=== PATIENT | male | born 1960 | race Caucasian/White ===

== ENCOUNTER 2017-03-20 14:19 | Inpatient (IN) | payer SELFPAY ==
[~2017-03-20] VITALS: Ht 172.7 cm; Wt 70.8 kg
[~2017-03-20 14:19] MED LIST: METH40TA PO
[2017-03-20 14:20] VITALS: BP 195/93; PULSE 98; RESP 18; TEMP 98.6; O2SAT 98
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
[2017-03-20] MEDS ORDERED: CLINDAMYCIN 600 MG/NS PREMIX 50 ML IV ONE ×2 (15:00→20:00)
[2017-03-20] MEDS ORDERED: CLINDAMYCIN INJ 600 MG in SODIUM CHLORIDE 0.9% INJ 100 ML IV ONE (15:00)
[2017-03-20 15:19] LABS: AUTOMATED NEUTROPHIL # 8.2 TH/MM3 (1.8-7.7); BASOPHIL % 0.3 % (0.0-2.0); EOSINOPHIL # 0.3 TH/MM3 (0-0.4); EOSINOPHIL % 2.2 % (0.0-4.0); HEMATOCRIT 35.1 % (39.0-51.0); HEMOGLOBIN 11.5 GM/DL (13.0-17.0); LYMPH % 17.7 % (9.0-44.0); MEAN CELL VOLUME 86.7 FL (80.0-100.0); MEAN CORPUSCULAR HEMOGLOBIN 28.4 PG (27.0-34.0); MEAN CORPUSCULAR HGB CONC 32.8 % (32.0-36.0); MEAN PLATELET VOLUME 7.4 FL (7.0-11.0); MONO % 8.5 % (0.0-8.0); NEUT % 71.3 % (16.0-70.0); PLATELET COUNT 331 TH/MM3 (150-450); RED BLOOD COUNT 4.05 MIL/MM3 (4.50-5.90); RED CELL DISTRIBUTION WIDTH 13.5 % (11.6-17.2); WHITE BLOOD COUNT 11.6 TH/MM3 (4.0-11.0)
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
[2017-03-20 15:32] LABS: ALBUMIN 2.8 GM/DL (3.4-5.0); ALT (GPT) 15 U/L (12-78); AST (GOT) 12 U/L (15-37); BICARBONATE 30.3 MEQ/L (21.0-32.0); BLOOD UREA NITROGEN 10 MG/DL (7-18); C-REACTIVE PROTEIN 8.57 MG/DL (0.00-0.30); CALCIUM 8.7 MG/DL (8.5-10.1); CHLORIDE 98 MEQ/L (98-107); CREATININE 1.09 MG/DL (0.60-1.30); GLOMERULAR FILTRATION RATE 69 ML/MIN (>89); GLUCOSE,RANDOM 105 MG/DL (74-106); PROTHROMBIN TIME - PATIENT 10.5 SEC (9.8-11.6); SODIUM (NA) 136 MEQ/L (136-145)
[2017-03-20 15:35] LABS: ALKALINE PHOSPHATASE 116 U/L (45-117); TOTAL BILIRUBIN ADULT 0.2 MG/DL (0.2-1.0); TOTAL PROTEIN 8.5 GM/DL (6.4-8.2)
[2017-03-20] MEDS ORDERED: PIPERACIL-TAZO 4.5 GM PREMIX 100 ML IV ONE (16:30)
[2017-03-20] MEDS ORDERED: VANCOMYCIN INJ 1,750 MG in SODIUM CHLORID 0.9% 500 ML INJ 500 ML IV ONE (16:30)
--- NOTE | 2017-03-20 16:38 | PD ---
Physical Exam Narrative I, Dr. Zuluaga, have reviewed the advance practice practitioner's documentation and am in agreement, met with the patient face to face, made the diagnosis, and the medical decision making was done by me. *My assessment and Findings: Patient is a 56 year old male who comes in due to concerns for infection in his toe. Exam shows swelling, oozing from his great toe. There is surrounding erythema and warmth. Data Data Last Documented VS Vital Signs Date Time Temp Pulse Resp B/P (MAP) Pulse Ox O2 Delivery O2 Flow Rate FiO2 03/20/17 14:20 98.6 98 18 195/93 (127) 98 Orders Orders Complete Blood Count With Diff (03/20/17 14:43) Comprehensive Metabolic Panel (03/20/17 14:43) Prothrombin Time / Inr (Pt) (03/20/17 14:43) Act Partial Throm Time (Ptt) (03/20/17 14:43) Foot, Complete ([id number]) (03/20/17 ) Westergren Sedimentation Rate (03/20/17 14:43) C-Reactive Protein (Crp) (03/20/17 14:43) Iv Access Insert/Monitor (03/20/17 14:47) Clindamycin Inj (Cleocin Inj) (03/20/17 15:00) Wound Culture And Gram Stain (03/20/17 14:58) Vancomycin Inj (Vancomycin Inj) (03/20/17 16:30) Piperacil-Tazo 4.5 Gm Premix (Zosyn 4.5 (03/20/17 16:30) Mri Foot W&W/O Contrast (03/20/17 ) Admit Order (Ed Use Only) (03/20/17 16:51) Consult Podiatry (03/20/17 ) Labs Laboratory Tests Test 03/20/17 15:00 White Blood Count 11.6 TH/MM3 Red Blood Count 4.05 MIL/MM3 Hemoglobin 11.5 GM/DL Hematocrit 35.1 % Mean Corpuscular Volume 86.7 FL Mean Corpuscular Hemoglobin 28.4 PG Mean Corpuscular Hemoglobin Concent 32.8 % Red Cell Distribution Width 13.5 % Platelet Count 331 TH/MM3 Mean Platelet Volume 7.4 FL Neutrophils (%) (Auto) 71.3 % Lymphocytes (%) (Auto) 17.7 % Monocytes (%) (Auto) 8.5 % Eosinophils (%) (Auto) 2.2 % Basophils (%) (Auto) 0.3 % Neutrophils # (Auto) 8.2 TH/MM3 Lymphocytes # (Auto) 2.0 TH/MM3 Monocytes # (Auto) 1.0 TH/MM3 Eosinophils # (Auto) 0.3 TH/MM3 Basophils # (Auto) 0.0 TH/MM3 CBC Comment DIFF FINAL Differential Comment Erythrocyte Sedimentation Rate 70 mm/hr Prothrombin Time 10.5 SEC Prothromb Time International Ratio 1.0 RATIO Activated Partial Thromboplast Time 31.2 SEC Blood Urea Nitrogen 10 MG/DL Creatinine 1.09 MG/DL Random Glucose 105 MG/DL Total Protein 8.5 GM/DL Albumin 2.8 GM/DL Calcium Level 8.7 MG/DL Alkaline Phosphatase 116 U/L Aspartate Amino Transf (AST/SGOT) 12 U/L Alanine Aminotransferase (ALT/SGPT) 15 U/L Total Bilirubin 0.2 MG/DL Sodium Level 136 MEQ/L Potassium Level 3.9 MEQ/L Chloride Level 98 MEQ/L Carbon Dioxide Level 30.3 MEQ/L Anion Gap 8 MEQ/L Estimat Glomerular Filtration Rate 69 ML/MIN C-Reactive Protein 8.57 MG/DL MDM Supervised Visit with ELVIN: Yes Narrative Course Patient given antibiotics. XR of the foot concerning for osteomyelitis. Podiatry consulted. Patient admitted for further management. Diagnosis Primary Impression: Toe ulcer Qualified Codes: L97.524 - Non-pressure chronic ulcer of other part of left foot with necrosis of bone Additional Impression: Osteomyelitis Qualified Codes: M86.172 - Other acute osteomyelitis, left ankle and foot Condition: Stable Rhoda Zuluaga MD Mar 20, 2017 16:38
[2017-03-20 16:55] VITALS: BP 157/78; PULSE 64; RESP 18; O2SAT 96
[2017-03-20] MEDS ORDERED: SODIUM CHLORIDE 0.9% FLUSH 10 ML FLUSH IV FLUSH PRN (18:00)
[2017-03-20] MEDS ORDERED: NALOXONE HCL 0.4 MG/ML AMP IV PUSH PRN (18:00)
[2017-03-20] MEDS ORDERED: ACETAMINOPHEN 325 MG TAB PO PRN ×2 (18:00)
[2017-03-20 18:23] VITALS: BP 158/69
[2017-03-20] MEDS ORDERED: RESP: ALBUTEROL 2.5 MG/IPRATROPIUM 0.5 MG NEB (PRN) NEB (18:30)
[2017-03-20] MEDS ORDERED: Vancomycin Consult Pharmacy 1 EA OTHER SCH (18:30)
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
[2017-03-20 20:00] VITALS: BP 151/73; PULSE 61; RESP 18; TEMP 99.8; O2SAT 96
--- NOTE | 2017-03-20 20:21 | RADRPT ---
THIS REPORT IS IN ERROR. PLEASE DISREGARD COPIES OF THIS REPORT. THIS REPORT IS IN ERROR. PLEASE DISREGARD COPIES OF THIS REPORT. THIS REPORT IS IN ERROR. PLEASE DISREGARD COPIES OF THIS REPORT. EXAM DATE/TIME: 03/20/2017 19:17 This report includes an Addendum and supersedes previous reports for this exam. [facility] COMPARISON: FOOT RIGHT COMPLETE ([id number]), March 20, 2017, 15:11. INDICATIONS : Osteomyelitis. Great toe/fracture 5th toe. CONTRAST: 13 cc Omniscan (gadodiamide) IV MEDICAL HISTORY : Diabetes mellitus type 2. Chronic obstructive pulmonary disease. Arthritis. CHF. SURGICAL HISTORY : Inguinal hernia repair. Tonsillectomy. ENCOUNTER: Initial ACUITY: 1 day PAIN SCORE: 0/10 LOCATION: Right foot TECHNIQUE: Multiplanar, multisequence MRI examination was performed without contrast and after the intravenous administration of gadolinium. FINDINGS: There is extensive motion artifact. There is hemorrhage high T2 signal abnormality in the base of the distal phalanx great toe most consistent with osteomyelitis. There is diffuse soft tissue swelling. No definite fracture seen. No fluid collection or abscess. CONCLUSION: Suspected osteomyelitis distal phalanx great toe. Louie Vega MD on March 20, 2017 at 20:14 Board Certified Radiologist. This report was verified electronically. ADDENDUM: The examination was MRI of the left foot. The requisition was put in incorrectly as right foot MRI. Please make a note of this collection. Yo Marley MD on March 21, 2017 at 12:10 Board Certified Radiologist. This report was verified electronically. THIS REPORT IS IN ERROR. PLEASE DISREGARD COPIES OF THIS REPORT. THIS REPORT IS IN ERROR. PLEASE DISREGARD COPIES OF THIS REPORT. THIS REPORT IS IN ERROR. PLEASE DISREGARD COPIES OF THIS REPORT. [id number]
[2017-03-20] MEDS ORDERED: GADODIAMIDE PF 287 MG/ML 10 ML VIAL (for RAD MRI) IVCONTRAST ONE (20:26)
[2017-03-20 20:32] VITALS: PULSE 60
[2017-03-20] MEDS: DOCUSATE SODIUM 50 MG/SENNA 8.6 MG TAB PO SCH (21:09)
[2017-03-20] MEDS: SODIUM CHLOR 0.9% 1000 ML INJ 1,000 ML IV SCH (21:09)
[2017-03-20] MEDS: SODIUM CHLORIDE 0.9% FLUSH 10 ML FLUSH IV FLUSH SCH (21:10)
[2017-03-20] MEDS: INSULIN ASPART SUPPLEMENTAL SCALE SQ SCH (21:13)
[2017-03-20] MEDS: PIPERACIL-TAZO 4.5 GM PREMIX 100 ML IV SCH (23:54)
[2017-03-21] VITALS (9 sets, daily range): BP systolic 93–153; BP diastolic 52–76; PULSE 47–63; RESP 16–20; TEMP 97.8–99.7; O2SAT 94–98
[2017-03-21] MEDS: SODIUM CHLOR 0.9% 1000 ML INJ 1,000 ML IV SCH (03:46)
[2017-03-21] MEDS: PIPERACIL-TAZO 4.5 GM PREMIX 100 ML IV SCH ×4 (05:11→23:18)
[2017-03-21] MEDS: VANCOMYCIN INJ 800 MG in SODIUM CHLOR 0.9% 250 ML INJ 250 ML IV SCH ×2 (05:51→18:51)
[2017-03-21 06:45] LABS: AUTOMATED NEUTROPHIL # 8.7 TH/MM3 (1.8-7.7); BASOPHIL % 0.3 % (0.0-2.0); EOSINOPHIL # 0.2 TH/MM3 (0-0.4); EOSINOPHIL % 1.6 % (0.0-4.0); HEMATOCRIT 31.7 % (39.0-51.0); HEMOGLOBIN 10.6 GM/DL (13.0-17.0); LYMPH % 24.6 % (9.0-44.0); LYMPHOCYTE # 3.3 TH/MM3 (1.0-4.8); MEAN CELL VOLUME 87.3 FL (80.0-100.0); MEAN CORPUSCULAR HEMOGLOBIN 29.2 PG (27.0-34.0); MEAN CORPUSCULAR HGB CONC 33.5 % (32.0-36.0); MEAN PLATELET VOLUME 7.9 FL (7.0-11.0); MONO % 9.1 % (0.0-8.0); MONOCYTE # 1.2 TH/MM3 (0-0.9); NEUT % 64.4 % (16.0-70.0); PLATELET COUNT 292 TH/MM3 (150-450); RED BLOOD COUNT 3.63 MIL/MM3 (4.50-5.90); RED CELL DISTRIBUTION WIDTH 13.3 % (11.6-17.2); WHITE BLOOD COUNT 13.5 TH/MM3 (4.0-11.0)
[2017-03-21 07:00] LABS: ALBUMIN 2.5 GM/DL (3.4-5.0); AST (GOT) 12 U/L (15-37); BICARBONATE 28.5 MEQ/L (21.0-32.0); BLOOD UREA NITROGEN 11 MG/DL (7-18); CALCIUM 8.6 MG/DL (8.5-10.1); CHLORIDE 100 MEQ/L (98-107); CREATININE 1.04 MG/DL (0.60-1.30); GLOMERULAR FILTRATION RATE 73 ML/MIN (>89); GLUCOSE,RANDOM 56 MG/DL (74-106); SODIUM (NA) 135 MEQ/L (136-145)
[2017-03-21 07:01] LABS: ALT (GPT) 10 U/L (12-78)
[2017-03-21 07:03] LABS: ALKALINE PHOSPHATASE 99 U/L (45-117); TOTAL BILIRUBIN ADULT 0.4 MG/DL (0.2-1.0); TOTAL PROTEIN 7.6 GM/DL (6.4-8.2)
[2017-03-21] MEDS: INSULIN ASPART SUPPLEMENTAL SCALE SQ SCH ×4 (08:00→21:57)
[2017-03-21] MEDS: SODIUM CHLORIDE 0.9% FLUSH 10 ML FLUSH IV FLUSH SCH ×2 (09:00→21:57)
[2017-03-21] MEDS: DOCUSATE SODIUM 50 MG/SENNA 8.6 MG TAB PO SCH ×2 (10:17→21:57)
[2017-03-21] MEDS: METHADONE HCL 10 MG TAB PO SCH (10:18)
--- NOTE | 2017-03-21 11:47 | PD.POD ---
Past Med/Surg/Social History Social History Smoking Status: Current Every Day Smoker Objective Vital Signs Vital Signs Date Time Temp Pulse Resp B/P (MAP) Pulse Ox O2 Delivery O2 Flow Rate FiO2 03/21/17 08:00 98.6 52 16 96/52 (67) 95 03/21/17 08:00 59 03/21/17 04:00 Room Air 03/21/17 04:00 98.7 56 16 93/57 (69) 94 03/21/17 03:58 47 03/21/17 00:04 54 03/21/17 00:00 Room Air 03/21/17 00:00 99.7 63 18 132/62 (85) 96 03/20/17 20:32 60 03/20/17 20:00 99.8 61 18 151/73 (99) 96 03/20/17 20:00 Room Air 03/20/17 18:23 80 158/69 (98) 95 03/20/17 16:55 64 18 157/78 (104) 96 Room Air 03/20/17 14:20 98.6 98 18 195/93 (127) 98 Coded Allergies: codeine (Unverified Adverse Reaction, Severe, NAUSEA, 10/13/16) Other Results Last 72 hours Impressions Foot X-Ray 03/20/17 0000 Signed Impressions: Service Date/Time: Monday, March 20, 2017 15:11 - CONCLUSION: 1. Fracture base of proximal phalanx little toe. 2. Osteomyelitis of the distal phalanx great toe. Louie Vega MD Foot MRI 03/20/17 0000 Signed Impressions: Service Date/Time: Monday, March 20, 2017 19:17 - CONCLUSION: Suspected osteomyelitis distal phalanx great toe. Louie Vega MD Assessment & Plan Diagnosis: (1) Toe ulcer ICD Codes: L97.509 - Non-pressure chronic ulcer of other part of unspecified foot with unspecified severity Status: Acute (2) Osteomyelitis ICD Codes: M86.9 - Osteomyelitis, unspecified Status: Acute A/P FULL CONSULT DICTATED. LEFT hallux OR today for amputation, risks and benefits reviewed. Reviewed case with medicine Problem Qualifiers (1) Toe ulcer: Qualified Codes: L97.524 - Non-pressure chronic ulcer of other part of left foot with necrosis of bone (2) Osteomyelitis: Qualified Codes: M86.172 - Other acute osteomyelitis, left ankle and foot Clint Gomez DPM Mar 21, 2017 11:47
[2017-03-21] MEDS ORDERED: ePHEDrine/NS 25 MG/5 ML SYRINGE IV ONE (12:00)
[2017-03-21] MEDS ORDERED: PROPOFOL 200 MG/20 ML AMP IV ONE (12:00)
[2017-03-21] MEDS ORDERED: LIDOCAINE HCL 1% PF 5 ML SYRINGE OTHER ONE (12:00)
[2017-03-21] MEDS ORDERED: ONDANSETRON HCL 4 MG/2 ML VIAL IV ONE (12:00)
[2017-03-21] MEDS ORDERED: POVIDONE IODINE 5% (ANTISEPSIS KIT) 4 APPLICATIONS EACH NARE PRN (13:00)
[2017-03-21] MEDS ORDERED: LACTATED RINGER'S 1000 ML IV PRN (13:00)
[2017-03-21] MEDS ORDERED: METOPROLOL TARTRATE 25 MG TAB PO PRN (13:00)
[2017-03-21] MEDS ORDERED: CHLORHEXIDINE GLUCONATE 2 % 1 PACK (2 CLOTHS) TOPICAL PRN (13:00)
[2017-03-21] MEDS ORDERED: SODIUM CHLORID 0.9% 500 ML IV PRN (13:00)
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
[2017-03-21] MEDS ORDERED: NEOMYCIN/POLYMYXIN 1 ML G.U. IRRIGANT ONE ×2 (13:57)
[2017-03-21] MEDS ORDERED: METOCLOPRAMIDE HCL 10 MG/2 ML VIAL ONE (14:24)
[2017-03-21] MEDS ORDERED: FAMOTIDINE 20 MG/2 ML VIAL ONE ×2 (14:24→14:25)
[2017-03-21] MEDS ORDERED: methylPREDNISolone SOD SUCC 125 MG/2 ML VIAL ONE (14:28)
--- NOTE | 2017-03-21 14:45 | HHI.PR ---
Subjective Remarks Patient reported having history of COPD, however his breathing okay now, he stated having a trauma on his left toe I look at it it's wet with greenish draining and tissue loss in the tip seems to have bone exposure Cussed with podiatry, plan for debridement/amputation Objective Vitals Vital Signs Date Time Temp Pulse Resp B/P (MAP) Pulse Ox O2 Delivery O2 Flow Rate FiO2 03/21/17 12:00 58 03/21/17 12:00 98.2 61 18 153/72 (99) 94 03/21/17 08:00 98.6 52 16 96/52 (67) 95 03/21/17 08:00 59 03/21/17 04:00 Room Air 03/21/17 04:00 98.7 56 16 93/57 (69) 94 03/21/17 03:58 47 03/21/17 00:04 54 03/21/17 00:00 Room Air 03/21/17 00:00 99.7 63 18 132/62 (85) 96 03/20/17 20:32 60 03/20/17 20:00 99.8 61 18 151/73 (99) 96 03/20/17 20:00 Room Air 03/20/17 18:23 80 158/69 (98) 95 03/20/17 16:55 64 18 157/78 (104) 96 Room Air I/O 03/20/17 03/20/17 03/20/17 03/21/17 03/21/17 03/21/17 07:00 15:00 23:00 07:00 15:00 23:00 Intake Total 50 ml 100 ml Balance 50 ml 100 ml Intake IV Total 50 ml 100 ml # Voids 3 Result Diagram: 03/21/17 0449 03/21/17 0449 Objective Remarks - GENERAL: This is a well-nourished, well-developed patient, in no apparent distress. CARDIOVASCULAR: Regular rate and rhythm without murmurs, gallops, or rubs. RESPIRATORY: Fair air entry bilaterally. No wheezes, rales, or rhonchi. GASTROINTESTINAL: Abdomen soft, non-tender, nondistended. Normal active bowel sounds MUSCULOSKELETAL: Extremities without clubbing, cyanosis, or edema. Left big toe with tape and the ulcer to be stage IV with bone exposed with greenish drainage, discrepancy in lower limb length left is longer than the right due to previous untreated hip fracture NEURO: Alert & Oriented x4 to person, place, time, situation. Moves all ext x4 A/P Assessment and Plan Osteomyelitis/ toe fracture Imaging showed: Fracture base of proximal phalanx little toe; Osteomyelitis of the distal phalanx great toe. -Appreciate podiatry consultation I discussed with Dr. Gomez, plan for surgery possibly today - MRI of the foot positive for OM - Continue IV Zosyn and vancomycin. - Continue methadone for pain control. - Follow wound and blood cultures. - IVFs. Lower extremity length discrepancy Due to previous untreated hip fracture Patient will need specialty shoes with left on the right side Diabetes The patient has neuropathy. - Insulin sliding scale. - Diabetic diet. History of IV drug abuse Now on methadone, 220 mg daily. - Continue methadone at 200 mg by mouth daily. Encouraged patient to wean gradually. Fractured hip Chronic problem. - Physical therapy. COPD The patient still smokes. - Smoking cessation instruction. - Duo nebs as needed. PPx: Chiara Anaya MD Mar 21, 2017 14:45
--- NOTE | 2017-03-21 15:34 | PD.OP ---
Operative Report Preoperative Diagnosis: (1) Toe ulcer (2) Osteomyelitis Postoperative Diagnosis: same Procedure: Left hallux partial amputation Anesthesia: General Hemostasis pneumatic tourniquet about ankle at 250 mmHg for approximately 15 minutes Estimated blood loss less than 10 mL's Specimen micro-bone swab, pathology x2 distal hallux for routine path and proximal margin proximal phalanx for path. Surgeon: Clint Morales Boil Off Machine Operator Cloth(s): scrub Operation and Findings: Under mild sedation the patient was brought in the operating room and placed on the operating table in the supine position. Following the induction of general anesthesia the patient's left foot was then scrubbed prepped and draped in the usual aseptic fashion. The left foot was examined there was exposed bone distal phalanx with swelling and erythema with purulent drainage of the distal hallux. The foot was elevated exsanguinated and the previously placed midcalf tourniquet was inflated at 250 mmHg. A fishmouth type incision was made at the level of the hallux IPJ. Full-thickness disarticulation at the hallux IPJ took place. There appeared to be viable tissue and intact bone cortical surface at the head of the proximal phalanx. A swab was taken of the proximal bone margin and the head of the proximal phalanx was transected and sent for pathological analysis to check for proximal margin clearance. The wound was flushed with copious amounts of normal saline and no signs of deep abscess at this area. Bovie and ligation of venous and arterial structures took place. Deep closure took place utilizing Vicryl skin was closed utilizing nylon. Upon relieving the tourniquet there was a prompt hyperemic response to the dorsal plantar flap. A bulky bandage applied patient recovered in PACU. Bandage will be changed within the next 1-2 days. We will monitor micro-and pathology before disposition for discharge. Clint Morales DPM Mar 21, 2017 15:34
[2017-03-21] MEDS ORDERED: DO NOT ADM ANY ANTICOAGULANT DRUGS PRN (15:35)
[2017-03-21] MEDS ORDERED: [UNRECOGNIZED DRUG - OTHER] ONE (17:45)
[2017-03-22] VITALS (10 sets, daily range): BP systolic 155–180; BP diastolic 72–90; PULSE 42–57; RESP 20–21; TEMP 97.4–98.1; O2SAT 91–99
[2017-03-22] MEDS: PIPERACIL-TAZO 4.5 GM PREMIX 100 ML IV SCH ×4 (05:06→23:49)
[2017-03-22] MEDS: VANCOMYCIN 1,000 MG/NS 250 ML IV SCH ×4 (05:50→19:32)
[2017-03-22] MEDS: SODIUM CHLORIDE 0.9% FLUSH 10 ML FLUSH IV FLUSH SCH ×2 (09:21→21:00)
[2017-03-22] MEDS: INSULIN ASPART SUPPLEMENTAL SCALE SQ SCH ×4 (09:21→21:00)
[2017-03-22] MEDS: DOCUSATE SODIUM 50 MG/SENNA 8.6 MG TAB PO SCH ×2 (09:22→21:16)
[2017-03-22] MEDS: METHADONE HCL 10 MG TAB PO SCH (09:23)
[2017-03-22] MEDS ORDERED: ceFAZolin INJ 500 MG in SODIUM CHLORIDE 0.9% INJ 100 ML IV SCH (10:30)
[2017-03-22] MEDS ORDERED: Vancomycin Consult Pharmacy 1 EA OTHER SCH (10:45)
--- NOTE | 2017-03-22 16:03 | HHI.PR ---
Subjective Remarks follow-up on left hallux cellulitis status post amputation, history of drug abuse on methadone 200 mg daily today patient seen to be with bradycardia but no symptoms no dizziness or lightheadedness or chest pain or palpitation, however he has been sustained in the 40s, a little medication can possibly be related related is methadone I discussed that with the ceramic worker and we decided to decrease the dose to 150, patient agree Objective Vitals Vital Signs Date Time Temp Pulse Resp B/P (MAP) Pulse Ox O2 Delivery O2 Flow Rate FiO2 03/22/17 08:00 97.5 45 20 158/74 (102) 91 03/22/17 04:03 42 03/22/17 04:00 97.4 48 20 159/77 (104) 96 03/22/17 04:00 Nasal Cannula 2.00 03/22/17 00:03 43 03/22/17 00:00 Nasal Cannula 2.00 03/22/17 00:00 98.1 49 21 158/79 (105) 99 03/21/17 20:00 Nasal Cannula 2.00 03/21/17 20:00 98.8 58 20 114/59 (77) 98 03/21/17 19:57 50 03/21/17 16:15 65 14 145/73 (97) 97 Nasal Cannula 2 I/O 03/21/17 03/21/17 03/21/17 03/22/17 03/22/17 03/22/17 07:00 15:00 23:00 07:00 15:00 23:00 Intake Total 100 ml 2378 ml 480 ml Output Total 1255 ml 1850 ml Balance 100 ml 1123 ml -1370 ml Intake Oral 1420 ml 480 ml IV Total 100 ml 558 ml Other 400 ml Output Urine Total 1250 ml 1850 ml Estimated Blood Loss 5 ml # Voids 3 # Bowel Movements 0 1 Result Diagram: 03/21/179 03/21/17448 Objective Remarks - GENERAL: This is a well-nourished, well-developed patient, in no apparent distress. CARDIOVASCULAR: Regular rate and rhythm without murmurs, gallops, or rubs. RESPIRATORY: Fair air entry bilaterally. No wheezes, rales, or rhonchi. GASTROINTESTINAL: Abdomen soft, non-tender, nondistended. Normal active bowel sounds MUSCULOSKELETAL: Extremities without clubbing, cyanosis, or edema. Left big toe with tape and the ulcer to be stage IV with bone exposed with greenish drainage, discrepancy in lower limb length left is longer than the right due to previous untreated hip fracture NEURO: Alert & Oriented x4 to person, place, time, situation. Moves all ext x4 A/P Assessment and Plan Osteomyelitis/ toe fracture Imaging showed: Fracture base of proximal phalanx little toe; Osteomyelitis of the distal phalanx great toe. -Appreciate podiatry consultation I discussed with Dr. Gomez, status post amputation 03/22, awaiting pathology - MRI of the foot positive for OM - Continue IV Zosyn and vancomycin. - Continue methadone for pain control. - Follow wound and blood cultures. - IVFs. Lower extremity length discrepancy Due to previous untreated hip fracture Patient will need specialty shoes with left on the right side asymptomatic bradycardia in the lower 40s We'll decrease methadone to 150 mg daily patient need to follow-up for further tapering as an outpatient Diabetes The patient has neuropathy. - Insulin sliding scale. - Diabetic diet. History of IV drug abuse Now on methadone, 220 mg daily. - Continue methadone at 200 mg by mouth daily. Encouraged patient to wean gradually. Fractured hip Chronic problem. - Physical therapy. COPD The patient still smokes. - Smoking cessation instruction. - Duo nebs as needed. PPx: Chiara Anaya MD Mar 22, 2017 16:03
--- NOTE | 2017-03-22 16:55 | PD.POD ---
Subjective Podiatric Problems L distal hallux osteomyelitis, s/p amputation distal Left hallux 03/21/17 [facility] Past Med/Surg/Social History Social History Smoking Status: Current Every Day Smoker Objective Vital Signs Vital Signs Date Time Temp Pulse Resp B/P (MAP) Pulse Ox O2 Delivery O2 Flow Rate FiO2 03/22/17 08:00 97.5 45 20 158/74 (102) 91 03/22/17 04:03 42 03/22/17 04:00 97.4 48 20 159/77 (104) 96 03/22/17 04:00 Nasal Cannula 2.00 03/22/17 00:03 43 03/22/17 00:00 Nasal Cannula 2.00 03/22/17 00:00 98.1 49 21 158/79 (105) 99 03/21/17 20:00 Nasal Cannula 2.00 03/21/17 20:00 98.8 58 20 114/59 (77) 98 03/21/17 19:57 50 Coded Allergies: codeine (Unverified Adverse Reaction, Severe, NAUSEA, 10/13/16) Medications and IVs Current Medications Medications (Trade) Dose Ordered Sig/Nithin Route Start Time Stop Time Status Last Admin (NS Flush) 2 ml UNSCH PRN IV FLUSH 03/20/17 18:00 (NS Flush) 2 ml BID IV FLUSH 03/20/17 21:00 03/22/17 09:21 (Tylenol) 650 mg Q4H PRN PO 03/20/17 18:00 (Tylenol) 650 mg Q6H PRN PO 03/20/17 18:00 (Narcan Inj) 0.4 mg UNSCH PRN IV PUSH 03/20/17 18:00 (Veena-Colace) 1 tab BID PO 03/20/17 21:00 03/22/17 09:22 (NovoLOG SUPPLEMENTAL SCALE) 1 ACHS SLIDING SCALE SQ 03/20/17 21:00 03/22/17 09:21 (Duoneb Neb) 1 ampule Q2HR NEB PRN NEB 03/20/17 18:30 Lactated Ringer's 1,000 ml @ 30 mls/hr Q24H PRN IV 03/21/17 13:00 03/24/17 12:59 Sodium Chloride 500 ml @ 30 mls/hr [id number] PRN IV 03/21/17 13:00 03/24/17 12:59 (Lopressor) 25 mg VICE PROVOST PRN PO 03/21/17 13:00 03/24/17 12:59 (Betadine 5% Antisepsis Kit) 1 applic VICE PROVOST PRN EACH NARE 03/21/17 13:00 03/24/17 12:59 (Chlorhexidine 2% Cloth) 3 pack VICE PROVOST PRN TOPICAL 03/21/17 13:00 03/24/17 12:59 Vancomycin HCl 1000 mg/Sodium Chloride 250 ml @ 250 mls/hr Q12H IV 03/22/17 06:00 03/22/17 05:50 Miscellaneous Information SPECIFIC LAB TO BE [facility]... ONCE ONCE .XX 03/23/17 05:45 03/23/17 05:46 (Dolophine) 150 mg DAILY PO 03/23/17 09:00 Piperacillin Sod/ Tazobactam Sod 100 ml @ 200 mls/hr Q6H IV 03/22/17 12:00 03/22/17 14:10 Pharmacy Profile Note 0 ml @ 0 mls/hr UNSCH OTHER 03/22/17 10:45 Other Results Laboratory Tests Test 03/20/17 15:00 03/21/17 04:49 03/21/17 17:30 Erythrocyte Sedimentation Rate 70 mm/hr Prothrombin Time 10.5 SEC Prothromb Time International Ratio 1.0 RATIO Activated Partial Thromboplast Time 31.2 SEC C-Reactive Protein 8.57 MG/DL White Blood Count 13.5 TH/MM3 Red Blood Count 3.63 MIL/MM3 Hemoglobin 10.6 GM/DL Hematocrit 31.7 % Mean Corpuscular Volume 87.3 FL Mean Corpuscular Hemoglobin 29.2 PG Mean Corpuscular Hemoglobin Concent 33.5 % Red Cell Distribution Width 13.3 % Platelet Count 292 TH/MM3 Mean Platelet Volume 7.9 FL Neutrophils (%) (Auto) 64.4 % Lymphocytes (%) (Auto) 24.6 % Monocytes (%) (Auto) 9.1 % Eosinophils (%) (Auto) 1.6 % Basophils (%) (Auto) 0.3 % Neutrophils # (Auto) 8.7 TH/MM3 Lymphocytes # (Auto) 3.3 TH/MM3 Monocytes # (Auto) 1.2 TH/MM3 Eosinophils # (Auto) 0.2 TH/MM3 Basophils # (Auto) 0.0 TH/MM3 CBC Comment DIFF FINAL Differential Comment Blood Urea Nitrogen 11 MG/DL Creatinine 1.04 MG/DL Random Glucose 56 MG/DL Total Protein 7.6 GM/DL Albumin 2.5 GM/DL Calcium Level 8.6 MG/DL Alkaline Phosphatase 99 U/L Aspartate Amino Transf (AST/SGOT) 12 U/L Alanine Aminotransferase (ALT/SGPT) 10 U/L Total Bilirubin 0.4 MG/DL Sodium Level 135 MEQ/L Potassium Level 4.2 MEQ/L Chloride Level 100 MEQ/L Carbon Dioxide Level 28.5 MEQ/L Anion Gap 7 MEQ/L Estimat Glomerular Filtration Rate 73 ML/MIN Vancomycin Level Trough 12.1 MCG/ML Exam-Podiatry Remarks Bandage left foot clean, dry, intact. No pain secondary to neuropathy Assessment & Plan A/P L distal hallux osteomyelitis, s/p amputation distal Left hallux 03/21/17 [facility] Due to cultures positive for strep/staph and patient's social situation, strongly recommend at least 2 more days IV antibiotics. Will change bandage on Wednesday and, if surgical site appears healthy, will recommend d/c on oral antibiotics with follow up in 1 week with [facility] outpatient Robbie Serrano DPM Mar 22, 2017 16:55
[2017-03-22] MEDS ORDERED: VANCOMYCIN INJ 800 MG in SODIUM CHLOR 0.9% 250 ML INJ 250 ML IV SCH (17:45)
--- NOTE | 2017-03-22 20:24 | RADRPT ---
EXAM DATE/TIME: 03/22/2017 19:28 [facility] COMPARISON: No previous studies available for comparison. INDICATIONS : Post surgery left foot MEDICAL HISTORY : Diabetes mellitus type 2. Chronic obstructive pulmonary disease. Arthritis, CHF. SURGICAL HISTORY : Inguinal hernia repair. Tonsillectomy. ENCOUNTER: Subsequent ACUITY: 3 days PAIN SCORE: 0/10 LOCATION: Left Foot FINDINGS: Postop amputation of the distal phalanx and distal portion proximal phalanx left great toe. No compli cations identified. CONCLUSION: 1. Postoperative partial amputation of left great toe. Mk Mtz MD on March 22, 2017 at 20:21 Board Certified Radiologist. This report was verified electronically.
[2017-03-23] VITALS (8 sets, daily range): BP systolic 142–191; BP diastolic 65–98; PULSE 39–60; RESP 18–20; TEMP 97.5–98.7; O2SAT 93–99
[2017-03-23] MEDS ORDERED: [UNRECOGNIZED DRUG - OTHER] ONE (05:45)
[2017-03-23] MEDS: VANCOMYCIN 1,000 MG/NS 250 ML IV SCH ×4 (05:54→17:48)
[2017-03-23 06:20] LABS: CREATININE 1.09 MG/DL (0.60-1.30)
[2017-03-23 06:22] LABS: VANCOMYCIN TROUGH 19.2 MCG/ML (5.0-10.0)
[2017-03-23] MEDS: PIPERACIL-TAZO 4.5 GM PREMIX 100 ML IV SCH ×3 (07:09→16:38)
[2017-03-23] MEDS: INSULIN ASPART SUPPLEMENTAL SCALE SQ SCH ×4 (08:00→20:29)
[2017-03-23] MEDS: DOCUSATE SODIUM 50 MG/SENNA 8.6 MG TAB PO SCH ×2 (08:58→20:29)
[2017-03-23] MEDS: METHADONE HCL 10 MG TAB PO SCH (08:59)
[2017-03-23] MEDS: SODIUM CHLORIDE 0.9% FLUSH 10 ML FLUSH IV FLUSH SCH ×2 (09:00→20:29)
--- NOTE | 2017-03-23 09:35 | RADRPT ---
EXAM DATE/TIME: 03/20/2017 19:17 This report includes an Addendum and supersedes previous reports for this exam. [facility] COMPARISON: FOOT RIGHT COMPLETE ([id number]), March 20, 2017, 15:11. INDICATIONS : Osteomyelitis. Great toe/fracture 5th toe. CONTRAST: 13 cc Omniscan (gadodiamide) IV MEDICAL HISTORY : Diabetes mellitus type 2. Chronic obstructive pulmonary disease. Arthritis. CHF. SURGICAL HISTORY : Inguinal hernia repair. Tonsillectomy. ENCOUNTER: Initial ACUITY: 1 day PAIN SCORE: 0/10 LOCATION: Right foot TECHNIQUE: Multiplanar, multisequence MRI examination was performed without contrast and after the intravenous a dministration of gadolinium. FINDINGS: There is extensive motion artifact. There is hemorrhage high T2 signal abnormality in the base of the distal phalanx great toe most consistent with osteomyelitis. There is diffuse soft tissue swelling. No definite fracture seen. No fluid collection or abscess. CONCLUSION: Suspected osteomyelitis distal phalanx great toe. Louie Vega MD on March 20, 2017 at 20:14 Board Certified Radiologist. This report was verified electronically. ADDENDUM: The examination was MRI of the left foot. The requisition was put in incorrectly as right foot MRI. Please make a note of this collection. Yo Marley MD on March 21, 2017 at 12:10 Board Certified Radiologist. This report was verified electronically.
--- NOTE | 2017-03-23 12:22 | HHI.PR ---
Subjective Remarks this is a follow-up on left hallux osteomyelitis status post amputation stable nonacute issue, afebrile Podiatry recommended continuing IV antibiotic and possible discharge on Wednesday Objective Vitals Vital Signs Date Time Temp Pulse Resp B/P (MAP) Pulse Ox O2 Delivery O2 Flow Rate FiO2 03/23/17 08:00 97.6 55 20 173/84 (113) 96 03/23/17 04:00 98.0 54 20 143/67 (92) 99 03/23/17 03:48 39 03/23/17 00:00 Room Air 03/23/17 00:00 97.8 56 20 142/65 (90) 95 03/22/17 23:47 48 03/22/17 20:00 98.1 54 20 155/72 (99) 92 03/22/17 19:58 Room Air 03/22/17 19:46 44 03/22/17 16:00 97.4 55 20 180/90 (120) 96 03/22/17 16:00 44 I/O 03/22/17 03/22/17 03/22/17 03/23/17 03/23/17 03/23/17 07:00 15:00 23:00 07:00 15:00 23:00 Intake Total 830 ml 2030 ml 900 ml 250 ml Output Total 1850 ml 725 ml 1250 ml Balance -1020 ml 1305 ml -350 ml 250 ml Intake Oral 480 ml 1680 ml 800 ml IV Total 350 ml 350 ml 100 ml 250 ml Output Urine Total 1850 ml 725 ml 1250 ml # Bowel Movements 1 0 Result Diagram: 03/21/17 0449 03/23/17 0525 Objective Remarks - GENERAL: This is a well-nourished, well-developed patient, in no apparent distress. CARDIOVASCULAR: Regular rate and rhythm without murmurs, gallops, or rubs. RESPIRATORY: Fair air entry bilaterally. No wheezes, rales, or rhonchi. GASTROINTESTINAL: Abdomen soft, non-tender, nondistended. Normal active bowel sounds MUSCULOSKELETAL: Extremities without clubbing, cyanosis, or edema. Left big toe with tape and the ulcer to be stage IV with bone exposed with greenish drainage, discrepancy in lower limb length left is longer than the right due to previous untreated hip fracture NEURO: Alert & Oriented x4 to person, place, time, situation. Moves all ext x4 A/P Assessment and Plan Osteomyelitis/ toe fracture Imaging showed: Fracture base of proximal phalanx little toe; Osteomyelitis of the distal phalanx great toe. -Appreciate podiatry consultation I discussed with Dr. Gomez, status post amputation, podiatry recommended continuing IV antibiotic until Wednesday, pathology showed clear margin, I will DC Zosyn and Vanco, may need to be on Augmentin by mouth at dischargeif indicated by podiatry, wound culture showed non-ABD Streptococcus - MRI of the foot positive for OM - Continue methadone for pain control. - Follow wound and blood cultures. - IVFs. Lower extremity length discrepancy Due to previous untreated hip fracture Patient will need specialty shoes with left on the right side Diabetes The patient has neuropathy. - Insulin sliding scale. - Diabetic diet. History of IV drug abuse Now on methadone, 220 mg daily. - Continue methadone at 200 mg by mouth daily. Encouraged patient to wean gradually. Fractured hip Chronic problem. - Physical therapy. COPD The patient still smokes. - Smoking cessation instruction. - Duo nebs as needed. PPx: SCDs Discharge Planning possibly tomorrow if cleared by podiatry will need to switch to by mouth antibiotic if dictated Chiara Page MD Mar 23, 2017 12:22
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
[2017-03-24] VITALS (12 sets, daily range): BP systolic 105–180; BP diastolic 67–94; PULSE 43–73; RESP 17–20; TEMP 97.5–98.1; O2SAT 93–96
[2017-03-24] MEDS ORDERED: PHARMACY ORDERED LAB ONE (05:45)
[2017-03-24] MEDS ORDERED: LISI10TA3 PO (06:05)
[2017-03-24] MEDS ORDERED: hydrALAZINE HCL 20 MG/ML VIAL IV PUSH ONE (06:30)
[2017-03-24] MEDS: INSULIN ASPART SUPPLEMENTAL SCALE SQ SCH ×4 (08:00→21:26)
[2017-03-24] MEDS: METHADONE HCL 10 MG TAB PO SCH (08:12)
[2017-03-24] MEDS: DOCUSATE SODIUM 50 MG/SENNA 8.6 MG TAB PO SCH ×2 (08:13→21:00)
[2017-03-24] MEDS: SODIUM CHLORIDE 0.9% FLUSH 10 ML FLUSH IV FLUSH SCH ×2 (08:14→21:00)
--- NOTE | 2017-03-24 08:32 | HHI.PR ---
Subjective Remarks This is a pleasant 56 y/o Male following for Left Hallux osteomyelitis, status post Amputation, Podiatry recommended to continue IV antibiotics. Stable discussed on multidisciplinary round and awaiting for Podiatry specialist for discharge. Objective Vital Signs Date Time Temp Pulse Resp B/P (MAP) Pulse Ox O2 Delivery O2 Flow Rate FiO2 03/24/17 06:08 180/94 (122) 03/24/17 04:07 43 03/24/17 04:00 97.9 50 17 180/93 (122) 95 03/24/17 04:00 Room Air 03/24/17 00:00 97.8 45 18 176/87 (116) 96 03/24/17 00:00 Room Air 03/23/17 23:47 50 03/23/17 20:50 Room Air 03/23/17 20:00 97.7 48 18 163/81 (108) 93 03/23/17 20:00 59 03/23/17 16:00 97.5 60 20 191/98 (129) 94 03/23/17 16:00 51 03/23/17 12:00 98.7 54 20 183/89 (120) 96 03/23/17 12:00 48 I/O 03/23/17 03/23/17 03/23/17 03/24/17 03/24/17 03/24/17 07:00 15:00 23:00 07:00 15:00 23:00 Intake Total 900 ml 250 ml 960 ml Output Total 1250 ml 675 ml 1800 ml Balance -350 ml 250 ml 285 ml -1800 ml Intake Oral 800 ml 960 ml IV Total 100 ml 250 ml Output Urine Total 1250 ml 675 ml 1800 ml # Voids 1 # Bowel Movements 0 0 Result Diagram: 03/21/17 0449 03/23/17 0525 Imaging Last Impressions Foot X-Ray 03/22/17 0000 Signed Impressions: Service Date/Time: Wednesday, March 22, 2017 19:28 - CONCLUSION: 1. Postoperative partial amputation of left great toe. Mk Mtz MD Foot MRI 03/20/17 0000 Signed Impressions: Service Date/Time: Monday, March 20, 2017 19:17 - CONCLUSION: Suspected osteomyelitis distal phalanx great toe. Louie Vega MD ADDENDUM: The examination was MRI of the left foot. The requisition was put in incorrectly as right foot MRI. Please make a note of this collection. Yo Marley MD Procedures Left Hallux partial amputation. Other Results Laboratory Tests Test 03/20/17 15:00 03/21/17 04:49 03/23/17 05:25 Erythrocyte Sedimentation Rate 70 mm/hr Prothrombin Time 10.5 SEC Prothromb Time International Ratio 1.0 RATIO Activated Partial Thromboplast Time 31.2 SEC C-Reactive Protein 8.57 MG/DL White Blood Count 13.5 TH/MM3 Red Blood Count 3.63 MIL/MM3 Hemoglobin 10.6 GM/DL Hematocrit 31.7 % Mean Corpuscular Volume 87.3 FL Mean Corpuscular Hemoglobin 29.2 PG Mean Corpuscular Hemoglobin Concent 33.5 % Red Cell Distribution Width 13.3 % Platelet Count 292 TH/MM3 Mean Platelet Volume 7.9 FL Neutrophils (%) (Auto) 64.4 % Lymphocytes (%) (Auto) 24.6 % Monocytes (%) (Auto) 9.1 % Eosinophils (%) (Auto) 1.6 % Basophils (%) (Auto) 0.3 % Neutrophils # (Auto) 8.7 TH/MM3 Lymphocytes # (Auto) 3.3 TH/MM3 Monocytes # (Auto) 1.2 TH/MM3 Eosinophils # (Auto) 0.2 TH/MM3 Basophils # (Auto) 0.0 TH/MM3 CBC Comment DIFF FINAL Differential Comment Blood Urea Nitrogen 11 MG/DL Creatinine 1.04 MG/DL 1.09 MG/DL Random Glucose 56 MG/DL Total Protein 7.6 GM/DL Albumin 2.5 GM/DL Calcium Level 8.6 MG/DL Alkaline Phosphatase 99 U/L Aspartate Amino Transf (AST/SGOT) 12 U/L Alanine Aminotransferase (ALT/SGPT) 10 U/L Total Bilirubin 0.4 MG/DL Sodium Level 135 MEQ/L Potassium Level 4.2 MEQ/L Chloride Level 100 MEQ/L Carbon Dioxide Level 28.5 MEQ/L Anion Gap 7 MEQ/L Estimat Glomerular Filtration Rate 69 ML/MIN Vancomycin Level Trough 19.2 MCG/ML Objective Remarks GENERAL: This is a well-nourished, well-developed patient, in no apparent distress. CARDIOVASCULAR: Regular rate and rhythm without murmurs, gallops, or rubs. RESPIRATORY: Fair air entry bilaterally. No wheezes, rales, or rhonchi. GASTROINTESTINAL: Abdomen soft, non-tender, nondistended. Normal active bowel sounds MUSCULOSKELETAL: left foot dressed. NEURO: Alert & Oriented x4 to person, place, time, situation. Moves all ext x4 Medications and IVs Current Medications Medications (Trade) Dose Ordered Sig/Nithin Route Start Time Stop Time Status Last Admin (NS Flush) 2 ml UNSCH PRN IV FLUSH 03/20/17 18:00 (NS Flush) 2 ml BID IV FLUSH 03/20/17 21:00 03/24/17 08:14 (Tylenol) 650 mg Q4H PRN PO 03/20/17 18:00 (Tylenol) 650 mg Q6H PRN PO 03/20/17 18:00 (Narcan Inj) 0.4 mg UNSCH PRN IV PUSH 03/20/17 18:00 (Veena-Colace) 1 tab BID PO 03/20/17 21:00 03/23/17 20:29 (NovoLOG SUPPLEMENTAL SCALE) 1 ACHS SLIDING SCALE SQ 03/20/17 21:00 03/22/17 09:21 (Duoneb Neb) 1 ampule Q2HR NEB PRN NEB 03/20/17 18:30 Lactated Ringer's 1,000 ml @ 30 mls/hr Q24H PRN IV 03/21/17 13:00 03/24/17 12:59 Sodium Chloride 500 ml @ 30 mls/hr [id number] PRN IV 03/21/17 13:00 03/24/17 12:59 (Lopressor) 25 mg EX[employer]ENT PRN PO 03/21/17 13:00 03/24/17 12:59 (Betadine 5% Antisepsis Kit) 1 applic [employer]ICE [employer]ENT PRN EACH NARE 03/21/17 13:00 03/24/17 12:59 (Chlorhexidine 2% Cloth) 3 pack [employer]ENT PRN TOPICAL 03/21/17 13:00 03/24/17 12:59 (Dolophine) 150 mg DAILY PO 03/23/17 09:00 03/24/17 08:12 (Prinivil) 10 mg DAILY PO 03/24/17 09:00 03/24/17 08:12 A/P Assessment and Plan Osteomyelitis/ toe fracture Imaging showed: Fracture base of proximal phalanx little toe; Osteomyelitis of the distal phalanx great toe. -Appreciate podiatry consultation I discussed with Dr. Gomez, status post amputation, podiatry recommended continuing IV antibiotic until Wednesday, pathology showed clear margin, I will DC Antonio and Gretel, may need to be on Augmentin by mouth at dischargeif indicated by podiatry, wound culture showed non-ABD Streptococcus - MRI of the foot positive for OM - Continue methadone for pain control. - Follow wound and blood cultures. - IVFs. Lower extremity length discrepancy Due to previous untreated hip fracture Patient will need specialty shoes with left on the right side Diabetes The patient has neuropathy. - Insulin sliding scale. - Diabetic diet. History of IV drug abuse Now on methadone, 220 mg daily. - Continue methadone at 200 mg by mouth daily. Encouraged patient to wean gradually. Fractured hip Chronic problem. - Physical therapy. COPD The patient still smokes. - Smoking cessation instruction. - Duo nebs as needed. PPx: SCDs Discharge Planning Once cleared by Podiatry specialist. Newton Raphael MD Mar 24, 2017 08:32
[2017-03-24] MEDS ORDERED: LISINOPRIL 10 MG TAB PO ONE (08:45)
[2017-03-24] MEDS ORDERED: LISINOPRIL 10 MG TAB PO SCH (09:00)
[2017-03-24] MEDS: amLODIPine BESYLATE 5 MG TAB PO SCH (14:22)
[2017-03-24] MEDS ORDERED: METHADONE HCL 10 MG TAB PO ONE (16:45)
[2017-03-25] VITALS (9 sets, daily range): BP systolic 108–140; BP diastolic 65–80; PULSE 49–66; RESP 18–19; TEMP 97.3–98.9; O2SAT 93–99
[2017-03-25] MEDS: INSULIN ASPART SUPPLEMENTAL SCALE SQ SCH ×3 (08:00→16:18)
[2017-03-25] MEDS: SODIUM CHLORIDE 0.9% FLUSH 10 ML FLUSH IV FLUSH SCH (08:18)
[2017-03-25] MEDS: amLODIPine BESYLATE 5 MG TAB PO SCH (08:19)
[2017-03-25] MEDS: METHADONE HCL 10 MG TAB PO SCH (08:21)
[2017-03-25] MEDS: DOCUSATE SODIUM 50 MG/SENNA 8.6 MG TAB PO SCH (08:21)
[2017-03-25] MEDS ORDERED: LISINOPRIL 20 MG TAB PO SCH (09:00)
--- NOTE | 2017-03-25 11:15 | HHI.PR ---
Subjective Remarks This is a pleasant 56 y/o Male following for Left Hallux osteomyelitis, status post Amputation, Podiatry recommended to continue IV antibiotics. 03/25: Stable discussed on multidisciplinary round and awaiting for Podiatry specialist for discharge. No Nausea, vomit or diarrhea. Seen today by podiatry specialist doctor Maggie Avalos recommended Dressing changed, keep bandage clean, dry and intact, clear for discharge from Podiatry specialist standpoint, WBAT in surgical shoe on left foot, okay to remove shoe when at rest or in bed Follow next week with Doctor Gomez at [facility] for post op evaluation. Objective Vital Signs Date Time Temp Pulse Resp B/P (MAP) Pulse Ox O2 Delivery O2 Flow Rate FiO2 03/25/17 08:00 98.9 59 18 125/75 (92) 93 03/25/17 08:00 53 03/25/17 07:21 Nasal Cannula 1.00 03/25/17 06:00 98.2 59 19 140/80 (100) 96 03/25/17 04:00 58 03/25/17 00:30 97.9 60 19 109/65 (80) 96 03/25/17 00:00 49 03/24/17 20:40 98.1 55 18 105/67 (80) 96 03/24/17 20:00 Room Air 03/24/17 20:00 53 03/24/17 16:07 73 03/24/17 16:00 97.8 61 20 147/94 (111) 95 03/24/17 12:29 60 03/24/17 12:00 97.9 61 20 123/89 (100) 93 I/O 03/24/17 03/24/17 03/24/17 03/25/17 03/25/17 03/25/17 07:00 15:00 23:00 07:00 15:00 23:00 Intake Total 1080 ml 1800 ml Output Total 1800 ml 350 ml 650 ml Balance -1800 ml 730 ml 1150 ml Intake Oral 1080 ml 1800 ml Output Urine Total 1800 ml 350 ml 650 ml # Voids 1 # Bowel Movements 0 4 0 Result Diagram: 03/21/17 0449 03/23/17 0525 Imaging Last Impressions Foot X-Ray 03/22/17 0000 Signed Impressions: Service Date/Time: Wednesday, March 22, 2017 19:28 - CONCLUSION: 1. Postoperative partial amputation of left great toe. Mk Mtz MD Foot MRI 03/20/17 0000 Signed Impressions: Service Date/Time: Monday, March 20, 2017 19:17 - CONCLUSION: Suspected osteomyelitis distal phalanx great toe. Louie Vega MD ADDENDUM: The examination was MRI of the left foot. The requisition was put in incorrectly as right foot MRI. Please make a note of this collection. Yo Marley MD Procedures Left Hallux partial amputation. Other Results Laboratory Tests Test 03/20/17 15:00 03/21/17 04:49 03/23/17 05:25 Erythrocyte Sedimentation Rate 70 mm/hr Prothrombin Time 10.5 SEC Prothromb Time International Ratio 1.0 RATIO Activated Partial Thromboplast Time 31.2 SEC C-Reactive Protein 8.57 MG/DL White Blood Count 13.5 TH/MM3 Red Blood Count 3.63 MIL/MM3 Hemoglobin 10.6 GM/DL Hematocrit 31.7 % Mean Corpuscular Volume 87.3 FL Mean Corpuscular Hemoglobin 29.2 PG Mean Corpuscular Hemoglobin Concent 33.5 % Red Cell Distribution Width 13.3 % Platelet Count 292 TH/MM3 Mean Platelet Volume 7.9 FL Neutrophils (%) (Auto) 64.4 % Lymphocytes (%) (Auto) 24.6 % Monocytes (%) (Auto) 9.1 % Eosinophils (%) (Auto) 1.6 % Basophils (%) (Auto) 0.3 % Neutrophils # (Auto) 8.7 TH/MM3 Lymphocytes # (Auto) 3.3 TH/MM3 Monocytes # (Auto) 1.2 TH/MM3 Eosinophils # (Auto) 0.2 TH/MM3 Basophils # (Auto) 0.0 TH/MM3 CBC Comment DIFF FINAL Differential Comment Blood Urea Nitrogen 11 MG/DL Creatinine 1.04 MG/DL 1.09 MG/DL Random Glucose 56 MG/DL Total Protein 7.6 GM/DL Albumin 2.5 GM/DL Calcium Level 8.6 MG/DL Alkaline Phosphatase 99 U/L Aspartate Amino Transf (AST/SGOT) 12 U/L Alanine Aminotransferase (ALT/SGPT) 10 U/L Total Bilirubin 0.4 MG/DL Sodium Level 135 MEQ/L Potassium Level 4.2 MEQ/L Chloride Level 100 MEQ/L Carbon Dioxide Level 28.5 MEQ/L Anion Gap 7 MEQ/L Estimat Glomerular Filtration Rate 69 ML/MIN Vancomycin Level Trough 19.2 MCG/ML Objective Remarks GENERAL: This is a well-nourished, well-developed patient, in no apparent distress. CARDIOVASCULAR: Regular rate and rhythm without murmurs, gallops, or rubs. RESPIRATORY: Fair air entry bilaterally. No wheezes, rales, or rhonchi. GASTROINTESTINAL: Abdomen soft, non-tender, nondistended. Normal active bowel sounds MUSCULOSKELETAL: left foot dressed. NEURO: Alert & Oriented x4 to person, place, time, situation. Moves all ext x4 Medications and IVs Current Medications Medications (Trade) Dose Ordered Sig/Inthin Route Start Time Stop Time Status Last Admin (NS Flush) 2 ml UNSCH PRN IV FLUSH 03/20/17 18:00 (NS Flush) 2 ml BID IV FLUSH 03/20/17 21:00 03/25/17 08:18 (Tylenol) 650 mg Q4H PRN PO 03/20/17 18:00 (Tylenol) 650 mg Q6H PRN PO 03/20/17 18:00 (Narcan Inj) 0.4 mg UNSCH PRN IV PUSH 03/20/17 18:00 (Veena-Colace) 1 tab BID PO 03/20/17 21:00 03/23/17 20:29 (NovoLOG SUPPLEMENTAL SCALE) 1 ACHS SLIDING SCALE SQ 03/20/17 21:00 03/24/17 21:26 (Duoneb Neb) 1 ampule Q2HR NEB PRN NEB 03/20/17 18:30 (Dolophine) 150 mg DAILY PO 03/23/17 09:00 03/25/17 08:21 (Prinivil) 20 mg DAILY PO 03/25/17 09:00 03/25/17 08:18 (Norvasc) 5 mg DAILY PO 03/24/17 12:30 03/25/17 08:19 A/P Assessment and Plan Osteomyelitis/ toe fracture Imaging showed: Fracture base of proximal phalanx little toe; Osteomyelitis of the distal phalanx great toe. -Appreciate podiatry consultation I discussed with Dr. Gomez, status post amputation, podiatry recommended continuing IV antibiotic until Wednesday, pathology showed clear margin, I will DC Zosyn and Vanco, may need to be on Augmentin by mouth at dischargeif indicated by podiatry, wound culture showed non-ABD Streptococcus - MRI of the foot positive for OM - Continue methadone for pain control. - Seen today by podiatry specialist doctor Maggie Avalos recommended Dressing changed, keep bandage clean, dry and intact, clear for discharge from Podiatry specialist standpoint, WBAT in surgical shoe on left foot, okay to remove shoe when at rest or in bed Follow next week with Doctor Gomez at [place] [facility] for post op evaluaiton. Lower extremity length discrepancy Due to previous untreated hip fracture Patient will need specialty shoes with left on the right side History of IV drug abuse Now on methadone, 220 mg daily. - Continue methadone at 200 mg by mouth daily. Encouraged patient to wean gradually. Fractured hip Chronic problem. - Physical therapy. COPD The patient still smokes. - Smoking cessation instruction. - Duo nebs as needed. PPx: SCDs Discharge Planning discharge home as per Podiatry specialist, instructions given by Podiatry Newton Raphael MD Mar 25, 2017 11:15
[2017-03-25] MEDS ORDERED: METHADONE HCL 10 MG TAB PO ONE (12:45)
--- NOTE | 2017-03-25 15:44 | PD.POD ---
Subjective Podiatric Problems L distal hallux osteomyelitis, s/p amputation distal Left hallux 03/21/17 Patricia Past Med/Surg/Social History Social History Smoking Status: Current Every Day Smoker Objective Vital Signs Vital Signs Date Time Temp Pulse Resp B/P (MAP) Pulse Ox O2 Delivery O2 Flow Rate FiO2 03/25/17 12:40 98.4 66 18 110/65 (80) 97 03/25/17 12:00 61 03/25/17 08:00 98.9 59 18 125/75 (92) 93 03/25/17 08:00 53 03/25/17 07:21 Nasal Cannula 1.00 03/25/17 06:00 98.2 59 19 140/80 (100) 96 03/25/17 04:00 58 03/25/17 00:30 97.9 60 19 109/65 (80) 96 03/25/17 00:00 49 03/24/17 20:40 98.1 55 18 105/67 (80) 96 03/24/17 20:00 Room Air 03/24/17 20:00 53 03/24/17 16:07 73 03/24/17 16:00 97.8 61 20 147/94 (111) 95 Coded Allergies: codeine (Unverified Adverse Reaction, Severe, NAUSEA, 10/13/16) Physical Exam Remarks Left distal hallux with sutures intact. Dry. No dehiscence noted. Assessment & Plan A/P L distal hallux osteomyelitis, s/p amputation distal Left hallux 03/21/17 Patricia Dressing changed. Keep bandage clean, dry, intact. Clear for d/c from podiatry standpoint WBAT in surgical shoe left foot. OK to remove shoe when at rest/in bed. Follow up next week with Dr Gomez @[place] [facility] for postop eval. patient told to call and make appt Robbie Serrano DPM Mar 25, 2017 15:44
[2017-03-25] MEDS ORDERED: AMLO5 PO (16:25)
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
[2017-03-26] MEDS ORDERED: METHADONE HCL 10 MG TAB PO SCH (09:00)
== END 2017-03-25 18:48 | disposition home or self-care (01) | DRG 617 ==
LOC: NEPE 14:19 → NEDA 16:54 → N04B 18:36
PROVIDERS: ADMIT Internal Medicine; ATTEND Internal Medicine
PROC: 0Y6Q0Z3 Detachment at Left 1st Toe, Low, Open Approach (ICD-10-PCS; principal; 2017-03-21 14:40)
DX: E11.69 Type 2 diabetes mellitus with other specified complication (principal); M86.171 Other acute osteomyelitis, right ankle and foot; E11.40 Type 2 diabetes mellitus with diabetic neuropathy, unspecified; I11.0 Hypertensive heart disease with heart failure; I50.9 Heart failure, unspecified; M86.172 Other acute osteomyelitis, left ankle and foot; L97.524 Non-pressure chronic ulcer of other part of left foot with necrosis of bone; E11.621 Type 2 diabetes mellitus with foot ulcer; S92.512A Displaced fracture of proximal phalanx of left lesser toe(s), initial encounter for closed fracture; J44.9 Chronic obstructive pulmonary disease, unspecified; L03.032 Cellulitis of left toe; S72.002G Fracture of unspecified part of neck of left femur, subsequent encounter for closed fracture with delayed healing; K74.60 Unspecified cirrhosis of liver; G47.30 Sleep apnea, unspecified; R00.1 Bradycardia, unspecified; M19.90 Unspecified osteoarthritis, unspecified site; F17.210 Nicotine dependence, cigarettes, uncomplicated; F11.21 Opioid dependence, in remission; B95.4 Other streptococcus as the cause of diseases classified elsewhere; B95.61 Methicillin susceptible Staphylococcus aureus infection as the cause of diseases classified elsewhere; Z79.4 Long term (current) use of insulin; Z59.0 Homelessness; Z88.5 Allergy status to narcotic agent; Z99.3 Dependence on wheelchair
CPT/HCPCS: 73630; 73720; 80053; 80202; 82565; 82948; 85025; 85610; 85652; 85730; 86140; 86403; 87015; 87040; 87070; 87102; 87116; 87147; 87186; 87205; 87206; 88305; 88307; 88311; 96374; A9579; J0360; J1815; J2405; J2543; J2765; J2930; J3010; J3370; J7030; J7040; J7050; L3260

== ENCOUNTER 2017-04-23 12:02 | Inpatient (IN) | payer SELFPAY ==
[~2017-04-23] VITALS: Ht 172.7 cm; Wt 70.2 kg
[~2017-04-23 12:02] MED LIST changes: +AMLO5 PO; +LISI10TA3 PO
[2017-04-23 12:03] VITALS: BP 118/58; PULSE 58; RESP 16; TEMP 98.4; O2SAT 97
[2017-04-23 13:17] LABS: AUTOMATED NEUTROPHIL # 3.5 TH/MM3 (1.8-7.7); BASOPHIL % 0.5 % (0.0-2.0); EOSINOPHIL # 0.3 TH/MM3 (0-0.4); EOSINOPHIL % 4.6 % (0.0-4.0); HEMATOCRIT 32.5 % (39.0-51.0); HEMOGLOBIN 11.2 GM/DL (13.0-17.0); LYMPH % 30.7 % (9.0-44.0); MEAN CELL VOLUME 85.5 FL (80.0-100.0); MEAN CORPUSCULAR HEMOGLOBIN 29.3 PG (27.0-34.0); MEAN CORPUSCULAR HGB CONC 34.3 % (32.0-36.0); MEAN PLATELET VOLUME 7.2 FL (7.0-11.0); MONO % 10.3 % (0.0-8.0); MONOCYTE # 0.7 TH/MM3 (0-0.9); NEUT % 53.9 % (16.0-70.0); PLATELET COUNT 224 TH/MM3 (150-450); RED CELL DISTRIBUTION WIDTH 14.3 % (11.6-17.2); WHITE BLOOD COUNT 6.4 TH/MM3 (4.0-11.0)
[2017-04-23 13:36] LABS: BICARBONATE 30.6 MEQ/L (21.0-32.0); CALCIUM 8.7 MG/DL (8.5-10.1); CREATININE 1.39 MG/DL (0.60-1.30)
[2017-04-23] MEDS ORDERED: PIPERACIL-TAZO 3.375 GM PREMIX 50 ML IV ONE (14:15)
[2017-04-23] MEDS ORDERED: VANCOMYCIN INJ 1,000 MG in SODIUM CHLOR 0.9% 250 ML INJ 250 ML IV ONE (14:15)
--- NOTE | 2017-04-23 14:16 | RADRPT ---
EXAM DATE/TIME: 04/23/2017 13:39 [facility] COMPARISON: FOOT LEFT COMPLETE ([id number]), March 22, 2017, 19:28. INDICATIONS : Left leg pain after surgery. MEDICAL HISTORY : Diabetes mellitus type 2. Chronic obstructive pulmonary disease. Arthritis, CHF. SURGICAL HISTORY : Inguinal hernia repair. Tonsillectomy ENCOUNTER: Initial ACUITY: 1 week PAIN SCORE: 8/10 LOCATION: Left distal leg FINDINGS: The tibia and fibula are intact. There is no acute fracture. There are minimal degenerative changes a t the lateral malleolus. No retained foreign body is identified. There mild degenerative changes in the lateral compartment of the left CONCLUSION: 1. Mild arthritic changes as above. No acute abnormality identified. John Montiel MD on April 23, 2017 at 14:13 Board Certified Radiologist. This report was verified electronically.
--- NOTE | 2017-04-23 14:21 | PD ---
HPI Chief Complaint: Wound/Suture/Staple Re-Check Time Seen by Provider: 14:08 Travel History International Travel<30 days: No Contact w/Intl Traveler<30days: No Traveled to known affect area: No History of Present Illness HPI 56 year-old male presents to the emergency department sent by Dr. Gomez, associate music professor, for admission to hospital. Patient comes with a prescription of stitches please admit to hospital, MRI and x-ray of left foot and tibia/fibula. Start IV antibiotics. Possible osteomyelitis of distal phalanx anterior leg abscess. Consult Dr. Gomez once admitted. Patient is diabetic. Patient was admitted in March 2017 for osteomyelitis on his left great toe. Patient underwent amputation in March and was on antibiotics. Patient states he has continued to have erythema to the portion of the great toe that was not amputated. He also reports erythema to the left anterior phillips. Patient states pain is currently 0/10 due to diabetic neuropathy. Moderate severity. PFSH Past Medical History Hx Anticoagulant Therapy: No Arthritis: Yes Asthma: No Blood Disorders: No Anxiety: Yes Depression: Yes Heart Rhythm Problems: No Cancer: No Cardiovascular Problems: Yes (HIGH BLOOD PRESSURE, CHF) High Cholesterol: Yes Chemotherapy: No Chest Pain: Yes Congestive Heart Failure: Yes Cirrhosis: Yes COPD: Yes Cerebrovascular Accident: No Diabetes: Yes Diminished Hearing: No Endocrine: Yes Gastrointestinal Disorders: No GERD: No Genitourinary: No Headaches: Yes Hepatitis: Yes (HEP C) Hiatal Hernia: Yes (REMOVED) Hypertension: Yes Immune Disorder: No Implanted Vascular Access Dvce: No Musculoskeletal: Yes (BACK PROBLEMS) Neurologic: Yes (NEUROPATHY IN FEET) Psychiatric: Yes Reproductive: No Respiratory: Yes (COPD) Immunizations Current: Yes Migraines: Yes Myocardial Infarction: No Radiation Therapy: No Sleep Apnea: Yes ("PROBABLY STATES PT") Thyroid Disease: No Ulcer: No Past Surgical History Abdominal Surgery: Yes (HERNIA REPAIR X2, ) Endocrine Surgery: Yes Eye Surgery: Yes (METAL REMOVED LEFT THIGH) Hysterectomy: No Tonsillectomy: Yes Other Surgery: Yes (HEMMROIDECTOMY) Social History Alcohol Use: No (quit 12 yrs ago) Tobacco Use: Yes (2-3 cig a day) Substance Use: No Allergies-Medications (Allergen,Severity, Reaction): Coded Allergies: codeine (Verified Adverse Reaction, Severe, NAUSEA, 04/23/17) Reported Meds & Prescriptions Reported Meds & Active Scripts Active Norvasc (Amlodipine Besylate) 5 Mg Tab 5 Mg PO DAILY Reported Lisinopril 10 Mg Tab 10 Mg PO DAILY Methadone (Methadone HCl) 40 Mg Tab 220 Mg PO DAILY Review of Systems Except as stated in HPI: all other systems reviewed are Neg Physical Exam Narrative GENERAL: Well-nourished, well-developed male patient, afebrile. SKIN: Focused skin assessment warm/dry. Portion of left great toe is erythematous, edematous. Patient has small area of erythema with tenderness to palpation over the left anterior phillips. HEAD: Normocephalic. Atraumatic. EYES: No scleral icterus. No injection or drainage. NECK: Supple, trachea midline. No JVD or lymphadenopathy. CARDIOVASCULAR: Regular rate and rhythm without murmurs, gallops, or rubs. RESPIRATORY: Breath sounds equal bilaterally. No accessory muscle use. GASTROINTESTINAL: Abdomen soft, non-tender, nondistended. MUSCULOSKELETAL: No cyanosis, or edema. BACK: Nontender without obvious deformity. No CVA tenderness. Data Data Last Documented VS Vital Signs Date Time Temp Pulse Resp B/P (MAP) Pulse Ox O2 Delivery O2 Flow Rate FiO2 04/23/17 12:03 98.4 58 16 118/58 (78) 97 Room Air Orders Orders Complete Blood Count With Diff (04/23/17 12:42) Basic Metabolic Panel (Bmp) (04/23/17 12:42) Blood Culture (04/23/17 12:42) Tibia/Fibula (Ap/Lat) (04/23/17 ) Foot, Complete ([id number]) (04/23/17 ) C-Reactive Protein (Crp) (04/23/17 14:09) Westergren Sedimentation Rate (04/23/17 14:09) Vancomycin Inj (Vancomycin Inj) (04/23/17 14:15) Piperacil-Tazo 3.375 Gm Premix (Zosyn 3. (04/23/17 14:15) Mri Foot W&W/O Contrast (04/23/17 ) Mri Lower Leg W/Wo Contrast (04/23/17 ) Consult Podiatry (04/23/17 ) (Hub Use Only)Inp Phy Cons/Ref (04/23/17 ) Admit Order (Ed Use Only) (04/23/17 14:46) Labs Laboratory Tests Test 04/23/17 13:00 White Blood Count 6.4 TH/MM3 Red Blood Count 3.80 MIL/MM3 Hemoglobin 11.2 GM/DL Hematocrit 32.5 % Mean Corpuscular Volume 85.5 FL Mean Corpuscular Hemoglobin 29.3 PG Mean Corpuscular Hemoglobin Concent 34.3 % Red Cell Distribution Width 14.3 % Platelet Count 224 TH/MM3 Mean Platelet Volume 7.2 FL Neutrophils (%) (Auto) 53.9 % Lymphocytes (%) (Auto) 30.7 % Monocytes (%) (Auto) 10.3 % Eosinophils (%) (Auto) 4.6 % Basophils (%) (Auto) 0.5 % Neutrophils # (Auto) 3.5 TH/MM3 Lymphocytes # (Auto) 2.0 TH/MM3 Monocytes # (Auto) 0.7 TH/MM3 Eosinophils # (Auto) 0.3 TH/MM3 Basophils # (Auto) 0.0 TH/MM3 CBC Comment DIFF FINAL Differential Comment Erythrocyte Sedimentation Rate 59 mm/hr Blood Urea Nitrogen 24 MG/DL Creatinine 1.39 MG/DL Random Glucose 143 MG/DL Calcium Level 8.7 MG/DL Sodium Level 138 MEQ/L Potassium Level 4.8 MEQ/L Chloride Level 103 MEQ/L Carbon Dioxide Level 30.6 MEQ/L Anion Gap 4 MEQ/L Estimat Glomerular Filtration Rate 52 ML/MIN C-Reactive Protein 2.36 MG/DL [facility] Medical Decision Making Medical Screen Exam Complete: Yes Emergency Medical Condition: Yes Medical Record Reviewed: Yes Interpretation(s) x-ray left tibia/fibula - CONCLUSION: 1. Mild arthritic changes as above. No acute abnormality identified. Differential Diagnosis Osteomyelitis versus abscess versus cellulitis Narrative Course 56-year-old male presents to the emergency department sent by Dr. Gomez, associate music professor, for admission IV antibiotics. CBC shows no acute abnormality. BMP shows BUN 24, creatinine 1.39. CRP, ESR ordered and pending. X-ray of the left foot shows no acute changes. X-ray left tibia/fibula shows Mild arthritic changes as above. No acute abnormality identified. MRI of the left foot and left tibia/fibula with and without contrast are ordered and pending. Patient is given vancomycin 1 g IV, Zosyn 3.375 g IV. Consult was placed for Dr. Gomez. [facility] is paged for admission. Dr. Martinez accepted admission. Diagnosis Primary Impression: Toe infection Additional Impression: Cellulitis of left leg Admitting Information Admitting Physician Requests: Admit Yolette Cedeno Apr 23, 2017 14:21
--- NOTE | 2017-04-23 14:30 | RADRPT ---
EXAM DATE/TIME: 04/23/2017 13:42 [facility] COMPARISON: FOOT LEFT COMPLETE ([id number]), March 22, 2017, 19:28. INDICATIONS : Left foot pain after surgery. MEDICAL HISTORY : Diabetes mellitus type 2. Chronic obstructive pulmonary disease. Arthritis, CHF. SURGICAL HISTORY : Inguinal hernia repair. ENCOUNTER: Initial ACUITY: 4 - 6 days PAIN SCORE: 7/10 LOCATION: Left distal foot FINDINGS: Sharp demarcation of the amputation site in the 1st digit phalanx. There is some minimal soft tissue ossification which is similar to the postoperative film. No radiopaque foreign bodies. No signific ant periosteal reaction or focal bony destruction. Osseous structures of the remainder of the foot a re intact. CONCLUSION: Stable radiographic appearance of the osteotomy amputation site distal 1st digit. Dwayne Nam MD on April 23, 2017 at 14:27 Board Certified Radiologist. This report was verified electronically.
[2017-04-23] MEDS ORDERED: LACTULOSE SYRUP 20 GM/30 ML CUP PO PRN (16:30)
[2017-04-23] MEDS ORDERED: BISACODYL 10 MG SUPP RECTAL PRN (16:30)
[2017-04-23] MEDS ORDERED: GLUCAGON 1 MG/ML VIAL OTHER PRN (16:30)
[2017-04-23] MEDS ORDERED: ACETAMINOPHEN 325 MG TAB PO PRN (16:30)
[2017-04-23] MEDS ORDERED: Vancomycin Consult Pharmacy 1 EA OTHER SCH (16:30)
[2017-04-23] MEDS ORDERED: NALOXONE HCL 0.4 MG/ML AMP IV PUSH PRN (16:30)
[2017-04-23] MEDS ORDERED: DEXTROSE 50% IN WATER 50 ML VIAL(D50) IV PUSH PRN (16:30)
[2017-04-23] MEDS ORDERED: MAGNESIUM HYDROXIDE SUSP 30 ML CUP PO PRN (16:30)
[2017-04-23] MEDS ORDERED: SODIUM CHLORIDE 0.9% FLUSH 10 ML FLUSH IV FLUSH PRN (16:30)
[2017-04-23] MEDS ORDERED: ONDANSETRON HCL 4 MG/2 ML VIAL IVP PRN (16:30)
[2017-04-23] MEDS ORDERED: SENNOSIDES 8.6 MG TAB PO PRN (16:30)
[2017-04-23 17:10] VITALS: BP 115/56; PULSE 52; RESP 16; O2SAT 97
[2017-04-23 18:00] VITALS: BP_SYST 83; BP_SYST 92; BP_DIAS 51; BP_DIAS 55; PULSE 47; RESP 20; TEMP 97.9; O2SAT 97
--- NOTE | 2017-04-23 18:08 | RADRPT ---
EXAM DATE/TIME: 04/23/2017 15:52 [facility] COMPARISON: FOOT LEFT COMPLETE ([id number]), March 22, 2017, 19:28. FOOT LEFT COMPLETE ([id number]), April 23 18, 13:42MRI FOOT LEFT W & W/O CONTRAST, March 20, 2017, 19:17. INDICATIONS : Osteomyelitis. CONTRAST: 15 cc Omniscan (gadodiamide) IV MEDICAL HISTORY : Hypertension. Diabetes mellitus type 2. SURGICAL HISTORY : Tonsillectomy. Hemorrhoidectomy. Inguinal hernia repair. ENCOUNTER: Initial ACUITY: 1 day PAIN SCORE: 0/10 LOCATION: Left foot TECHNIQUE: Multiplanar, multisequence MRI examination was performed without contrast and after the intravenous a dministration of gadolinium. FINDINGS: Limited quality examination due to patient motion, especially on the axial images. The patient has u ndergone amputation of the 1st digit with the osteotomy site mid shaft of the phalanx. There is T2 p rolongation in the marrow of the residual 1st phalan, and expected postsurgical finding. The soft ti ssues adjacent to the osteotomy, there is a small fluid cavity which has irregular margins and measur es 9 x 3 mm. There is enhancement of the soft tissues surrounding this fluid cavity suggesting a sma ll abscess or seroma. There is also enhancement of the soft tissues concentric to the base of the 1s t digit. No signal abnormality seen in the marrow of the remainder of the osseous structures of the foot. No other fluid collections seen. CONCLUSION: 1. There is a 9 x 3 mm fluid collection anterior and medial to knee amputation osteotomy site with mo derate irregular enhancement about the periphery suggesting either seroma or abscess. 2. There is signal change in the marrow of the residual phalanx of the 1st digit. There is T2 prolon gation and marrow enhancement in the residual phalanx which could be indicative of osteomyelitis, how ever, in the perioperative period, postsurgical changes could have similar behavior. A tagged white blood cell scan with SPECT/CT would be potentially helpful to help differentiate between the 2 possib ilities. Dwayne Nam MD on April 23, 2017 at 17:59 Board Certified Radiologist. This report was verified electronically.
--- NOTE | 2017-04-23 18:12 | RADRPT ---
EXAM DATE/TIME: 04/23/2017 15:52 [facility] COMPARISON: No previous studies available for comparison. INDICATIONS : Osteomyelitis. CONTRAST: 15 cc Omniscan (gadodiamide) IV MEDICAL HISTORY : Hypertension. Diabetes mellitus type 2. SURGICAL HISTORY : Tonsillectomy. Hemorrhoidectomy. Inguinal hernia repair. ENCOUNTER: Initial ACUITY: 1 day PAIN SCORE: 0/10 LOCATION: Left foot TECHNIQUE: Multiplanar multisequence MRI examination of the lower leg was performed with and without contrast. FINDINGS: Coronal and sagittal imaging is performed through the entire shaft of the tibia and fibula. Axial im ages are acquired through the mid and distal shaft. There is normal signal in the marrow of the tibia and fibula and no abnormal areas of marrow enhancem ent seen. The soft tissues posterior to the diametaphysis of the distal tibia, there is T2 prolongat ion within the soleus muscle. The signal change is fairly homogeneous. There is no significant enha ncement within the soleus when comparing pre-and post contrast images. The Achilles tendon is intact . CONCLUSION: 1. No signal abnormality in the marrow of the tibia or fibula to suggest osteomyelitis. 2. T2 prolongation within the substance of the soleus muscle without abnormal enhancement. This is n onspecific in appearance but suggests muscular contusion or edema. 3. No focal fluid collections seen. Dwayne Nam MD on April 23, 2017 at 18:07 Board Certified Radiologist. This report was verified electronically.
[2017-04-23] MEDS: SODIUM CHLOR 0.45% 1000 ML INJ 1,000 ML IV SCH (18:40)
[2017-04-23] MEDS: INSULIN ASPART SUPPLEMENTAL SCALE SQ SCH ×2 (18:40→21:41)
[2017-04-23 20:13] VITALS: BP 94/54; PULSE 45; RESP 16; TEMP 97.5; O2SAT 96
--- NOTE | 2017-04-23 20:34 | HHI.HP ---
HPI Service [facility] Hospitalists Primary Care Physician No Primary Care Physician Admission Diagnosis infection left great toe/lower leg, possible osteomyelitis/abscess Diagnoses: Travel History International Travel<30 Days: No Contact w/Intl Traveler <30 Da: No Traveled to Known Affected Are: No History of Present Illness This is a 56-year-old male with past medical history significant for diabetes mellitus, hypertension, hyperlipidemia, COPD, CHF, also arthritis and recent osteomyelitis status post osteomyelitis of the left hallux status post Left hallux partial amputation. The patient presents to [facility] referred by his filter filler Dr. Gomez for admission to the hospital. As per ED medical records the patient presents to the hospital with a prescription which says please admitted to the hospital and recommends MRI and x-ray of the left foot and tibia/fibula. Patient was in the emergency department and given IV antibiotics. The patient states that he continued to have erythema to the portion of the great toe that was not amputated. Patient states he does not have any pain due to diabetic neuropathy. Patient also denies chest pain, shortness of breath, fevers, chills. Review of Systems As per HPI, other systems reviewed by me and negative. Past Family Social History Past Medical History Diabetes COPD CHF Osteoarthritis Past Surgical History Bilateral hernia repair Tonsillectomy Hemorrhoidectomy Glass removed from left thigh Left hallux partial amputation Reported Medications Reported Meds & Active Scripts Active Norvasc (Amlodipine Besylate) 5 Mg Tab 5 Mg PO DAILY Reported Lisinopril 10 Mg Tab 10 Mg PO DAILY Methadone (Methadone HCl) 40 Mg Tab 220 Mg PO DAILY Allergies: Coded Allergies: codeine (Verified Adverse Reaction, Severe, NAUSEA, 04/23/17) Active Ordered Medications Current Medications Medications (Trade) Dose Ordered Sig/Nithin Route Start Time Stop Time Status Last Admin Sodium Chloride 1,000 ml @ 75 mls/hr [id number] IV 04/23/17 18:00 04/23/17 18:40 (NS Flush) 2 ml UNSCH PRN IV FLUSH 04/23/17 16:30 (NS Flush) 2 ml BID IV FLUSH 04/23/17 21:00 (Tylenol) 650 mg Q4H PRN PO 04/23/17 16:30 (Zofran Inj) 4 mg Q6H PRN IVP 04/23/17 16:30 (Heparin Inj) 5,000 units Q8H SQ 04/23/17 22:00 (Narcan Inj) 0.4 mg UNSCH PRN IV PUSH 04/23/17 16:30 (Veena-Colace) 1 tab BID PO 04/23/17 21:00 (Milk Of Magnesia Liq) 30 ml Q12H PRN PO 04/23/17 16:30 (Senokot) 17.2 mg Q12H PRN PO 04/23/17 16:30 (Dulcolax Supp) 10 mg DAILY PRN RECTAL 04/23/17 16:30 (Lactulose Liq) 30 ml DAILY PRN PO 04/23/17 16:30 Vancomycin HCl 1000 mg/Sodium Chloride 250 ml @ 250 mls/hr Q12H IV 04/24/17 02:00 Pharmacy Profile Note 0 ml @ 0 mls/hr UNSCH OTHER 04/23/17 16:30 Piperacillin Sod/ Tazobactam Sod 100 ml @ 200 mls/hr Q8H IV 04/23/17 22:00 (D50w (Vial) Inj) 50 ml UNSCH PRN IV PUSH 04/23/17 16:30 (Glucagon Inj) 1 mg UNSCH PRN OTHER 04/23/17 16:30 (NovoLOG SUPPLEMENTAL SCALE) 1 ACHS SLIDING SCALE SQ 04/23/17 17:00 04/23/17 18:40 Miscellaneous Information SPECIFIC LAB TO BE [facility]... ONCE ONCE .XX 04/25/17 01:45 04/25/17 01:46 Family History Asthma CAD Social History The patient used to be an IV drug user and is currently on methadone. He smokes 5 cigarettes daily. He quit alcohol use years ago. Physical Exam Vital Signs Vital Signs Date Time Temp Pulse Resp B/P (MAP) Pulse Ox O2 Delivery O2 Flow Rate FiO2 04/23/17 18:00 97.9 47 20 83/51 (62) 97 04/23/17 18:00 97.9 47 20 83/51 (62) 97 92/55 (67) 04/23/17 17:10 52 16 115/56 (75) 97 Room Air 2/23/18 12:03 98.4 58 16 118/58 (78) 97 Room Air Physical Exam GENERAL: This is a well-nourished, well-developed patient, in no apparent distress. SKIN: No rashes, ecchymoses or lesions. Cool and dry. HEAD: Atraumatic. Normocephalic. No temporal or scalp tenderness. EYES: Pupils equal round and reactive. Extraocular motions intact. No scleral icterus. No injection or drainage. ENT: Nose without bleeding, purulent drainage or septal hematoma. Throat without erythema, tonsillar hypertrophy or exudate. Uvula midline. Airway patent. NECK: Trachea midline. No JVD or lymphadenopathy. Supple, nontender, no meningeal signs. CARDIOVASCULAR: Regular rate and rhythm without murmurs, gallops, or rubs. RESPIRATORY: Clear to auscultation. Breath sounds equal bilaterally. No wheezes , rales, or rhonchi. GASTROINTESTINAL: Abdomen soft, non-tender, nondistended. No hepato-splenomegaly , or palpable masses. No guarding. MUSCULOSKELETAL: Extremities without clubbing, cyanosis, or edema. No joint tenderness, effusion, or edema noted. No calf tenderness. Negative Homans sign bilaterally. NEUROLOGICAL: Awake and alert. Cranial nerves II through XII intact. Motor and sensory grossly within normal limits. Five out of 5 muscle strength in all muscle groups. Normal speech. Laboratory Laboratory Tests Test 04/23/17 13:00 White Blood Count 6.4 Red Blood Count 3.80 Hemoglobin 11.2 Hematocrit 32.5 Mean Corpuscular Volume 85.5 Mean Corpuscular Hemoglobin 29.3 Mean Corpuscular Hemoglobin Concent 34.3 Red Cell Distribution Width 14.3 Platelet Count 224 Mean Platelet Volume 7.2 Neutrophils (%) (Auto) 53.9 Lymphocytes (%) (Auto) 30.7 Monocytes (%) (Auto) 10.3 Eosinophils (%) (Auto) 4.6 Basophils (%) (Auto) 0.5 Neutrophils # (Auto) 3.5 Lymphocytes # (Auto) 2.0 Monocytes # (Auto) 0.7 Eosinophils # (Auto) 0.3 Basophils # (Auto) 0.0 CBC Comment DIFF FINAL Differential Comment Erythrocyte Sedimentation Rate 59 Blood Urea Nitrogen 24 Creatinine 1.39 Random Glucose 143 Calcium Level 8.7 Sodium Level 138 Potassium Level 4.8 Chloride Level 103 Carbon Dioxide Level 30.6 Anion Gap 4 Estimat Glomerular Filtration Rate 52 C-Reactive Protein 2.36 Date/Time Source Procedure Growth Status 04/23/17 13:00 Blood Peripheral Aerobic Blood Culture Pending Received 04/23/17 13:00 Blood Peripheral Anaerobic Blood Culture Pending Received Result Diagram: 04/23/17 1300 04/23/17 1300 Imaging Last Impressions Tibia/Fibula X-Ray 04/23/17 0000 Signed Impressions: Service Date/Time: Sunday, April 23, 2017 13:39 - CONCLUSION: 1. Mild arthritic changes as above. No acute abnormality identified. John Montiel MD Lower Extremity MRI 04/23/17 0000 Signed Impressions: Service Date/Time: Sunday, April 23, 2017 15:52 - CONCLUSION: 1. No signal abnormality in the marrow of the tibia or fibula to suggest osteomyelitis. 2. T2 prolongation within the substance of the soleus muscle without abnormal enhancement. This is nonspecific in appearance but suggests muscular contusion or edema. 3. No focal fluid collections seen. Dwayne Nam MD Foot X-Ray 04/23/17 0000 Signed Impressions: Service Date/Time: Sunday, April 23, 2017 13:42 - CONCLUSION: Stable radiographic appearance of the osteotomy amputation site distal 1st digit. Dwayne Nam MD Foot MRI 04/23/17 0000 Signed Impressions: Service Date/Time: Sunday, April 23, 2017 15:52 - CONCLUSION: 1. There is a 9 x 3 mm fluid collection anterior and medial to knee amputation osteotomy site with moderate irregular enhancement about the periphery suggesting either seroma or abscess. 2. There is signal change in the marrow of the residual phalanx of the 1st digit. There is T2 prolongation and marrow enhancement in the residual phalanx which could be indicative of osteomyelitis, however, in the perioperative period, postsurgical changes could have similar behavior. A tagged white blood cell scan with SPECT/CT would be potentially helpful to help differentiate between the 2 possibilities. MD Nga May VTE Risk Assessment [place] VTE Risk Assessment: Mod/High Risk (score >= 2) Caprini Risk Assessment Model Point Value = 1 Point Value = 2 Point Value = 3 Point Value = 5 Age 41-60 Minor surgery BMI > 25 kg/m2 Swollen legs Varicose veins or History of unexplained or recurrent spontaneous Oral contraceptives or hormone replacement Sepsis (< 1 month) Serious lung disease, including pneumonia (< 1 month) Abnormal pulmonary function Acute myocardial infarction Congestive heart failure (< 1 month) History of inflammatory bowel disease Medical patient at bed rest Age 61-74 Arthroscopic surgery Major open surgery (> 45 min) Laparoscopic surgery (> 45 min) Malignancy Confined to bed (> 72 hours) Immobilizing plaster cast Central venous access Age >= 75 History of VTE Family history of VTE Factor V Leiden Prothrombin [id number] Lupus anticoagulant Anticardiolipin antibodies Elevated serum homocysteine Heparin-induced thrombocytopenia Other congenital or acquired thrombophilia Stroke (< 1 month) Elective arthroplasty Hip, pelvis, or leg fracture Acute spinal cord injury (< 1 month) Prophylaxis Regimen Total Risk Factor Score Risk Level Prophylaxis Regimen 0-1 Low Early ambulation 2 Moderate Order ONE of the following: *Sequential Compression Device (SCD) *Heparin 5000 units SQ BID 3-4 Higher Order ONE of the following medications: *Heparin 5000 units SQ TID *Enoxaparin/Lovenox 40 mg SQ daily (WT < 150 kg, CrCl > 30 mL/min) *Enoxaparin/Lovenox 30 mg SQ daily (WT < 150 kg, CrCl > 10-29 mL/min) *Enoxaparin/Lovenox 30 mg SQ BID (WT < 150 kg, CrCl > 30 mL/min) AND/OR *Sequential Compression Device (SCD) 5 or more Highest Order ONE of the following medications: *Heparin 5000 units SQ TID (Preferred with Epidurals) *Enoxaparin/Lovenox 40 mg SQ daily (WT < 150 kg, CrCl > 30 mL/min) *Enoxaparin/Lovenox 30 mg SQ daily (WT < 150 kg, CrCl > 10-29 mL/min) *Enoxaparin/Lovenox 30 mg SQ BID (WT < 150 kg, CrCl > 30 mL/min) AND *Sequential Compression Device (SCD) Assessment and Plan Problem List: (1) Toe osteomyelitis, left ICD Code: M86.9 - Osteomyelitis, unspecified Plan: As evidence on MRI stated above. Continue broad-spectrum IV antibiotics. Patient administered IV vancomycin and IV Zosyn in the emergency department. Will continue. Consult infectious disease. Consult podiatry. CRP elevated at 2.36. (2) HTN (hypertension) ICD Code: I10 - HTN (hypertension) Status: Acute Plan: BP noted to be low. Systolic blood pressure in the low 80s. I will administer 500 mL's of normal saline IV bolus. Hold antihypertensive medications. (3) Diabetes mellitus, type II ICD Code: E11.9 - Type 2 diabetes mellitus without complications Plan: Blood sugar seems to be stable. Placed on SSI with insulin NovoLog. Check hemoglobin A1c. Monitor Accu-Cheks. . (4) CHF (congestive heart failure) ICD Code: I50.9 - Heart failure, unspecified Plan: After review of records chronic diastolic. Echocardiogram on 2012 showed a pattern of mild LVH and an ejection fraction of 60%. (5) COPD (chronic obstructive pulmonary disease) ICD Code: J44.9 - Chronic obstructive pulmonary disease, unspecified Plan: Not an exacerbation. Patient also does not seem to be on any inhalers at home. (6) DANILO (acute kidney injury) ICD Code: N17.9 - Acute kidney failure, unspecified Plan: Creatinine on admission 1.39. Placed on IV fluids, monitor BUN and creatinine, strict I's and O's. Assessment and Plan DVT prophylaxis: Heparin subcutaneously. Code Status Full code. Discussed Condition With ED physician, patient. Physician Certification 2 Midnight Certification Type: Admission for Inpatient Services Order for Inpatient Services The services are ordered in accordance with Medicare regulations or non- Medicare payer requirements, as applicable. In the case of services not specified as inpatient-only, they are appropriately provided as inpatient services in accordance with the 2-midnight benchmark. Estimated LOS (days): 2 days is the estimated time the patient will need to remain in the hospital, assuming treatment plan goals are met and no additional complications. Post-Hospital Plan: Not yet determined Problem Qualifiers (1) HTN (hypertension): Qualified Codes: I10 - Essential (primary) hypertension (2) Diabetes mellitus, type II: Qualified Codes: E11.42 - Type 2 diabetes mellitus with diabetic polyneuropathy Merritt Grigsby MD Apr 23, 2017 20:34
[2017-04-23] MEDS: SODIUM CHLORIDE 0.9% FLUSH 10 ML FLUSH IV FLUSH SCH (21:00)
[2017-04-23] MEDS: DOCUSATE SODIUM 50 MG/SENNA 8.6 MG TAB PO SCH (21:00)
[2017-04-23] MEDS: PIPERACIL-TAZO 4.5 GM PREMIX 100 ML IV SCH (21:43)
[2017-04-23] MEDS: HEPARIN SODIUM - SQ 10,000 UNITS/ML VIAL SQ SCH (21:43)
[2017-04-24 00:17] VITALS: BP 117/59; PULSE 58; RESP 18; TEMP 99.1; O2SAT 96
[2017-04-24] MEDS: VANCOMYCIN INJ 1,000 MG in SODIUM CHLOR 0.9% 250 ML INJ 250 ML IV SCH ×2 (01:13→13:59)
[2017-04-24 03:52] VITALS: BP 137/66; PULSE 48; RESP 18; TEMP 97.5; O2SAT 97
[2017-04-24] MEDS: PIPERACIL-TAZO 4.5 GM PREMIX 100 ML IV SCH ×3 (05:06→22:27)
[2017-04-24] MEDS: HEPARIN SODIUM - SQ 10,000 UNITS/ML VIAL SQ SCH ×3 (05:06→22:00)
[2017-04-24] MEDS: SODIUM CHLORIDE 0.9% FLUSH 10 ML FLUSH IV FLUSH SCH ×2 (07:21→21:00)
[2017-04-24 08:00] VITALS: BP 124/72; PULSE 56; RESP 17; TEMP 97.5; O2SAT 97
[2017-04-24] MEDS: INSULIN ASPART SUPPLEMENTAL SCALE SQ SCH ×4 (08:00→21:00)
--- NOTE | 2017-04-24 08:04 | HHI.PR ---
Subjective Remarks Follow up for left lower ext pain, abscess. Patient feels that his pain is better, erythema is improved. No fever overnight. No acute concerns. Objective Vitals Vital Signs Date Time Temp Pulse Resp B/P (MAP) Pulse Ox O2 Delivery O2 Flow Rate FiO2 04/24/17 07:08 Room Air 04/24/17 04:30 Room Air 04/24/17 03:52 97.5 48 18 137/66 (89) 97 04/24/17 00:17 99.1 58 18 117/59 (78) 96 04/24/17 00:00 Room Air 04/23/17 20:13 97.5 45 16 94/54 (67) 96 04/23/17 20:00 Room Air 04/23/17 18:00 97.9 47 20 83/51 (62) 97 04/23/17 18:00 97.9 47 20 83/51 (62) 97 92/55 (67) 04/23/17 17:10 52 16 115/56 (75) 97 Room Air 04/23/17 12:03 98.4 58 16 118/58 (78) 97 Room Air I/O 04/23/17 04/23/17 04/23/17 04/24/17 04/24/17 04/24/17 07:00 15:00 23:00 07:00 15:00 23:00 Intake Total 100 ml 830 ml Output Total 1300 ml Balance 100 ml -470 ml Intake Oral 480 ml IV Total 100 ml 350 ml Output Urine Total 1300 ml # Bowel Movements 0 Result Diagram: 04/23/17 1300 04/23/17 1300 Imaging Last Impressions Tibia/Fibula X-Ray 04/23/17 0000 Signed Impressions: Service Date/Time: Sunday, April 23, 2017 13:39 - CONCLUSION: 1. Mild arthritic changes as above. No acute abnormality identified. John Montiel MD Lower Extremity MRI 04/23/17 0000 Signed Impressions: Service Date/Time: Sunday, April 23, 2017 15:52 - CONCLUSION: 1. No signal abnormality in the marrow of the tibia or fibula to suggest osteomyelitis. 2. T2 prolongation within the substance of the soleus muscle without abnormal enhancement. This is nonspecific in appearance but suggests muscular contusion or edema. 3. No focal fluid collections seen. Dwayne Nam MD Foot X-Ray 04/23/17 0000 Signed Impressions: Service Date/Time: Sunday, April 23, 2017 13:42 - CONCLUSION: Stable radiographic appearance of the osteotomy amputation site distal 1st digit. Dwayne Nam MD Foot MRI 04/23/17 0000 Signed Impressions: Service Date/Time: Sunday, April 23, 2017 15:52 - CONCLUSION: 1. There is a 9 x 3 mm fluid collection anterior and medial to knee amputation osteotomy site with moderate irregular enhancement about the periphery suggesting either seroma or abscess. 2. There is signal change in the marrow of the residual phalanx of the 1st digit. There is T2 prolongation and marrow enhancement in the residual phalanx which could be indicative of osteomyelitis, however, in the perioperative period, postsurgical changes could have similar behavior. A tagged white blood cell scan with SPECT/CT would be potentially helpful to help differentiate between the 2 possibilities. Dwayne Nam MD Objective Remarks GENERAL: Alert, Oriented x 3, NAD. SKIN: Warm and dry. HEAD: Normocephalic. EYES: No scleral icterus. No injection or drainage. NECK: Supple, trachea midline. No JVD or lymphadenopathy. CARDIOVASCULAR: Regular rate and rhythm without murmurs, gallops, or rubs. RESPIRATORY: Breath sounds equal bilaterally. No accessory muscle use. GASTROINTESTINAL: Abdomen soft, non-tender, nondistended. MUSCULOSKELETAL: No cyanosis, or edema. Mild tenderness over left lower ext below knee. No erythema present. BACK: Nontender without obvious deformity. No CVA tenderness. Procedures None. A/P Problem List: (1) Toe osteomyelitis, left ICD Code: M86.9 - Osteomyelitis, unspecified (2) HTN (hypertension) ICD Code: I10 - HTN (hypertension) Status: Acute (3) Diabetes mellitus, type II ICD Code: E11.9 - Type 2 diabetes mellitus without complications (4) CHF (congestive heart failure) ICD Code: I50.9 - Heart failure, unspecified (5) COPD (chronic obstructive pulmonary disease) ICD Code: J44.9 - Chronic obstructive pulmonary disease, unspecified (6) DANILO (acute kidney injury) ICD Code: N17.9 - Acute kidney failure, unspecified Assessment and Plan Mr. Alva is a 56 year old male with a history of diabetes mellitus, hypertension, hyperlipidemia, COPD, CHF and recent partial amputation of left hallux due to osteomyelitis who presented to the hospital on 04/23/2017 on advice of his youth counselor for further radiological studies as well as IV abx. Patient reported that he had erythema of the partially amputated great toe. He had pain and erythema over his left lower ext below knee. - Probable left lower ext cellulitis - Below knee tenderness, erythema largely resolved. - Will continue Vancomycin and Zosyn for now. - Left hallux osteomyelitis - Podiatry evaluated patient. Probable amputation tomorrow 04/25/2017. - Acute kidney injury - Creatinine 1.39. Baseline appears to be around 1 to 1.10. - Will hold lisinopril for now. - Diabetes mellitus - Continue sliding scale insulin. Glucose goal 140-180 in the hospital. - Chronic methadone use - continue home dose methadone 220mg Qday. Full code. Heparin SQ. Problem Qualifiers (1) HTN (hypertension): Qualified Codes: I10 - Essential (primary) hypertension (2) Diabetes mellitus, type II: Qualified Codes: E11.42 - Type 2 diabetes mellitus with diabetic polyneuropathy Patti Jones DO Apr 24, 2017 08:04
[2017-04-24] MEDS: DOCUSATE SODIUM 50 MG/SENNA 8.6 MG TAB PO SCH ×2 (08:24→21:00)
[2017-04-24 12:00] VITALS: BP 162/94; PULSE 47; RESP 18; TEMP 97.5; O2SAT 93
[2017-04-24] MEDS: METHADONE HCL 10 MG TAB PO SCH (12:13)
[2017-04-24] MEDS: SODIUM CHLOR 0.45% 1000 ML INJ 1,000 ML IV SCH ×2 (12:14→22:23)
--- NOTE | 2017-04-24 15:21 | PD.POD ---
Subjective Pain score: 2 Remarks Much improved swelling and pain upon being admitted, left leg there is no pain no crepitus patient is resting comfortably Past Med/Surg/Social History Social History Smoking Status: Former Smoker Objective Vital Signs Vital Signs Date Time Temp Pulse Resp B/P (MAP) Pulse Ox O2 Delivery O2 Flow Rate FiO2 04/24/17 12:00 97.5 47 18 162/94 (116) 93 04/24/17 08:00 97.5 56 17 124/72 (89) 97 04/24/17 07:08 Room Air 04/24/17 04:30 Room Air 04/24/17 03:52 97.5 48 18 137/66 (89) 97 04/24/17 00:17 99.1 58 18 117/59 (78) 96 04/24/17 00:00 Room Air 04/23/17 20:13 97.5 45 16 94/54 (67) 96 04/23/17 20:00 Room Air 04/23/17 18:00 97.9 47 20 83/51 (62) 97 04/23/17 18:00 97.9 47 20 83/51 (62) 97 92/55 (67) 04/23/17 17:10 52 16 115/56 (75) 97 Room Air Coded Allergies: codeine (Verified Adverse Reaction, Severe, NAUSEA, 04/23/17) Medications and IVs Administered Medications Medications (Trade) Dose Ordered Sig/Nithin Route PRN Reason Start Time Stop Time Status Last Admin Dose Admin Sodium Chloride 1,000 ml @ 75 mls/hr [id number] IV 04/23/17 18:00 04/24/17 12:14 Heparin Sodium (Porcine) (Heparin Inj) 5,000 units Q8H SQ 04/23/17 22:00 04/24/17 12:44 Vancomycin HCl 1000 mg/Sodium Chloride 250 ml @ 250 mls/hr Q12H IV 04/24/17 02:00 04/24/17 13:59 Piperacillin Sod/ Tazobactam Sod 100 ml @ 200 mls/hr Q8H IV 04/23/17 22:00 04/24/17 12:45 Insulin Aspart (NovoLOG SUPPLEMENTAL SCALE) 1 ACHS SLIDING SCALE SQ 04/23/17 17:00 04/23/17 21:41 Methadone HCl (Dolophine) 220 mg DAILY PO 04/24/17 12:00 04/24/17 12:13 Other Results Laboratory Tests Test 04/23/17 13:00 White Blood Count 6.4 TH/MM3 Red Blood Count 3.80 MIL/MM3 Hemoglobin 11.2 GM/DL Hematocrit 32.5 % Mean Corpuscular Volume 85.5 FL Mean Corpuscular Hemoglobin 29.3 PG Mean Corpuscular Hemoglobin Concent 34.3 % Red Cell Distribution Width 14.3 % Platelet Count 224 TH/MM3 Mean Platelet Volume 7.2 FL Neutrophils (%) (Auto) 53.9 % Lymphocytes (%) (Auto) 30.7 % Monocytes (%) (Auto) 10.3 % Eosinophils (%) (Auto) 4.6 % Basophils (%) (Auto) 0.5 % Neutrophils # (Auto) 3.5 TH/MM3 Lymphocytes # (Auto) 2.0 TH/MM3 Monocytes # (Auto) 0.7 TH/MM3 Eosinophils # (Auto) 0.3 TH/MM3 Basophils # (Auto) 0.0 TH/MM3 CBC Comment DIFF FINAL Differential Comment Erythrocyte Sedimentation Rate 59 mm/hr Laboratory Tests Test 04/23/17 13:00 Blood Urea Nitrogen 24 MG/DL Creatinine 1.39 MG/DL Random Glucose 143 MG/DL Calcium Level 8.7 MG/DL Sodium Level 138 MEQ/L Potassium Level 4.8 MEQ/L Chloride Level 103 MEQ/L Carbon Dioxide Level 30.6 MEQ/L Anion Gap 4 MEQ/L Estimat Glomerular Filtration Rate 52 ML/MIN C-Reactive Protein 2.36 MG/DL Microbiology Date/Time Source Procedure Growth Status 04/23/17 13:00 Blood Peripheral Aerobic Blood Culture - Preliminary NO GROWTH IN 1 DAY Resulted 04/23/17 13:00 Blood Peripheral Anaerobic Blood Culture - Preliminary NO GROWTH IN 1 DAY Resulted 04/23/17 13:00 Blood Peripheral Aerobic Blood Culture - Preliminary NO GROWTH IN 1 DAY Resulted 04/23/17 13:00 Blood Peripheral Anaerobic Blood Culture - Preliminary NO GROWTH IN 1 DAY Resulted Last 72 hours Impressions Tibia/Fibula X-Ray 04/23/17 0000 Signed Impressions: Service Date/Time: Sunday, April 23, 2017 13:39 - CONCLUSION: 1. Mild arthritic changes as above. No acute abnormality identified. John Montiel MD Lower Extremity MRI 04/23/17 0000 Signed Impressions: Service Date/Time: Sunday, April 23, 2017 15:52 - CONCLUSION: 1. No signal abnormality in the marrow of the tibia or fibula to suggest osteomyelitis. 2. T2 prolongation within the substance of the soleus muscle without abnormal enhancement. This is nonspecific in appearance but suggests muscular contusion or edema. 3. No focal fluid collections seen. Dwayne Nam MD Foot X-Ray 04/23/17 0000 Signed Impressions: Service Date/Time: Sunday, April 23, 2017 13:42 - CONCLUSION: Stable radiographic appearance of the osteotomy amputation site distal 1st digit. Dwayne Nam MD Foot MRI 04/23/17 0000 Signed Impressions: Service Date/Time: Sunday, April 23, 2017 15:52 - CONCLUSION: 1. There is a 9 x 3 mm fluid collection anterior and medial to knee amputation osteotomy site with moderate irregular enhancement about the periphery suggesting either seroma or abscess. 2. There is signal change in the marrow of the residual phalanx of the 1st digit. There is T2 prolongation and marrow enhancement in the residual phalanx which could be indicative of osteomyelitis, however, in the perioperative period, postsurgical changes could have similar behavior. A tagged white blood cell scan with SPECT/CT would be potentially helpful to help differentiate between the 2 possibilities. Dwayne Nam MD Physical Exam Remarks Left lower extremity examined. Absence of swelling or crepitus of the pretibial compartment significantly improved since last being seen in my office , distal medial swelling of the hallux with redness and mild drainage. Pedal pulses are palpable sensation decreased to light touch Assessment & Plan A/P Left hallux osteomyelitis, left distal tibia cellulitis significantly improved. MRI suggests osteo-myelitis of the proximal phalanx with possible abscess of the hallux. I explained to patient the high chance of resolution of the infection with hallux amputation. The patient wished to proceed. Risks and benefits explained. The patient was consented for left hallux amputation I will see the patient in the a.m. Patient has great circulation I do not feel that he needs vascular consultation before proceeding with surgery. I will attempt a clean margin and take deep cultures at the time of surgery Clint Gomez DPM Apr 24, 2017 15:21
[2017-04-24 16:00] VITALS: BP 132/68; PULSE 44; RESP 16; TEMP 97.9; O2SAT 94
--- NOTE | 2017-04-24 18:42 | MB ---
cc: CHIRAG CERVANTES MD DATE OF CONSULTATION: 04/24/2017 REQUESTING PHYSICIAN: Dr. Martinez REASON FOR CONSULTATION: Toe osteomyelitis. HISTORY OF PRESENT ILLNESS This is a 56-year-old white male who was admitted to the hospital after he was sent to the emergency department when he was found to have erythema, swelling and possible osteomyelitis of the distal phalanx of the left leg. He was noted to possibly have an abscess of the left anterior tibia distally. He is post amputation partial of the left great toe. The culture at the time grew strep non-ABD and staph aureus. He was seen in followup by podiatry and then sent to the hospital for evaluation. An x-ray of the tibia and fibula showed mild arthritic change at the tibia. An MRI of lower extremity showed no signal abnormality in the marrow of the tibia or fibular to suggest osteomyelitis. MRI of the foot showed a 9 x 3 mm fluid collection anterior and medial at the osteotomy site suggesting either seroma or an abscess. There was also prolongation of marrow enhancement in the residual phalanx which could be indicative of osteomyelitis. The patient was seen by podiatry and plans are to do incision and debridement along with further amputation at the left great toe. The plan is to get to clean the bone margin. The patient feels okay otherwise. He has no chills, nausea, vomiting, shortness of breath, back pain, shortness of breath, dysuria. He states that he has problems with pain in the back from a fractured hip that causes him not to be able to bear weight on his right leg because he never had surgical treatment for the hip fracture. Blood cultures were taken and had no growth. PAST MEDICAL HISTORY COPD, diabetes mellitus, CHF, osteoarthritis, bilateral hernia repair, tonsillectomy, hemorrhoidectomy, partial amputation of the left great toe. ALLERGIES CODEINE MEDICATIONS 1. Vancomycin. 2. Piperacillin / tazobactam. 3. Methadone. 4. Subcutaneous heparin. SOCIAL HISTORY: The patient is not employed. 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 No alcohol. The patient smokes about two to three cigarettes a day. No illicit drug use. FAMILY HISTORY: Noncontributory. REVIEW OF SYSTEMS: Pertinent as mentioned above in the history of present illness. PHYSICAL EXAMINATION This is a well-developed, well-nourished appearing male in no acute distress. Vital signs: Temperature 97.5, BP 162/94, respirations 18, heart rate 47. HEENT: Head is atraumatic. Extraocular movements grossly intact, pupils reactive to light. No icterus. Oropharynx: moist mucosa without lesions. Neck: Supple without adenopathy. Lungs: Clear breath sounds bilateral. Heart: Distant S1-S2 without murmurs, rubs or gallops. Abdomen: Bowel sounds present, soft, no tenderness appreciated. Rectal: Not performed. Extremities: There is a mild erythema at the distal anterior tibia which is very minimal. No tenderness on palpation at that location. The left great toe has a well-healed wound and there is really no significant erythema visible there. The rest of the extremities are intact. Skin: No rash. Neuro: Nonfocal. Psych: The patient is calm and cooperative and pleasant. LABORATORY DATA WBC 6.4, sedimentation rate 59, platelets 224, hemoglobin 11.2, creatinine 1.39, estimated GFR 52, sodium 132, C-reactive protein 2.36. IMPRESSION Left hallux osteomyelitis. MRI suggesting osteomyelitis of the hallux. Patient status post recent partial amputation of the left hallux one month ago. RECOMMENDATIONS 1. Continue vancomycin. 2. Continue piperacillin / tazobactam. 3. Monitor clinical status. 4. Monitor the right tibia. 5. When surgery is performed, he will need a couple of days most likely of antibiotics after the procedure. Thank you for the consultation. I will follow the progress with you. Truman Chang MD FD/FELICIANO /3:42 PM /6:27 PM DERREK
[2017-04-24 20:00] VITALS: BP 110/62; PULSE 45; RESP 16; TEMP 97.7; O2SAT 97
[2017-04-24] MEDS ORDERED: SODIUM CHLORID 0.9% 500 ML IV PRN (23:15)
[2017-04-24] MEDS ORDERED: POVIDONE IODINE 5% (ANTISEPSIS KIT) 4 APPLICATIONS EACH NARE PRN (23:15)
[2017-04-24] MEDS ORDERED: LACTATED RINGER'S 1000 ML IV PRN (23:15)
[2017-04-24] MEDS ORDERED: CHLORHEXIDINE GLUCONATE 2 % 1 PACK (2 CLOTHS) TOPICAL PRN (23:15)
[2017-04-25] VITALS: BP 125/68; PULSE 45; RESP 16; TEMP 97.8; O2SAT 96
[2017-04-25] MEDS ORDERED: PHARMACY ORDERED LAB ONE (01:45)
[2017-04-25] MEDS: VANCOMYCIN INJ 1,000 MG in SODIUM CHLOR 0.9% 250 ML INJ 250 ML IV SCH ×2 (03:59→17:34)
[2017-04-25 04:00] VITALS: BP 140/67; PULSE 45; RESP 16; TEMP 97.8; O2SAT 97
[2017-04-25 05:01] LABS: CREATININE 1.13 MG/DL (0.60-1.30); VANCOMYCIN TROUGH 15.6 MCG/ML (5.0-10.0)
[2017-04-25] MEDS: HEPARIN SODIUM - SQ 10,000 UNITS/ML VIAL SQ SCH ×3 (06:00→21:36)
[2017-04-25] MEDS: PIPERACIL-TAZO 4.5 GM PREMIX 100 ML IV SCH ×3 (06:08→21:34)
[2017-04-25] MEDS: DOCUSATE SODIUM 50 MG/SENNA 8.6 MG TAB PO SCH ×2 (07:20→21:00)
[2017-04-25] MEDS: SODIUM CHLORIDE 0.9% FLUSH 10 ML FLUSH IV FLUSH SCH ×2 (07:21→21:00)
[2017-04-25] MEDS: INSULIN ASPART SUPPLEMENTAL SCALE SQ SCH ×4 (08:00→21:00)
[2017-04-25] MEDS: amLODIPine BESYLATE 5 MG TAB PO SCH (08:34)
[2017-04-25] MEDS: METHADONE HCL 10 MG TAB PO SCH (08:36)
[2017-04-25 09:05] VITALS: BP 161/72; PULSE 49; RESP 18; TEMP 98; O2SAT 95
--- NOTE | 2017-04-25 09:13 | EKG ---
Date Performed: 04/25/2017 Time Performed: 07:26:21 PTAGE: 56 years EKG: SINUS BRADYCARDIA BORDERLINE ECG PREVIOUS TRACING : 08/26/2015 19.17 No significant change from previous tracing noted. DOCTOR: Igor Mayberry Interpretating Date/Time 04/25/2017 09:11:58
--- NOTE | 2017-04-25 09:18 | HHI.PR ---
Subjective Remarks Follow up for left lower ext pain, abscess. Patient is currently doing well. No acute concerns. Denies any chest pain, shortness of breath, fever or chills. He is going for left hallux amputation today. Objective Vitals Vital Signs Date Time Temp Pulse Resp B/P (MAP) Pulse Ox O2 Delivery O2 Flow Rate FiO2 04/25/17 09:05 98.0 49 18 161/72 (101) 95 04/25/17 07:58 Room Air 04/25/17 04:00 97.8 45 16 140/67 (91) 97 04/25/17 00:00 97.8 45 16 125/68 (87) 96 04/24/17 20:00 97.7 45 16 110/62 (78) 97 04/24/17 20:00 Room Air 04/24/17 16:00 97.9 44 16 132/68 (89) 94 04/24/17 12:00 97.5 47 18 162/94 (116) 93 I/O 04/24/17 04/24/17 04/24/17 04/25/17 04/25/17 04/25/17 07:00 15:00 23:00 07:00 15:00 23:00 Intake Total 830 ml 650 ml 220 ml Output Total 1300 ml 2600 ml 500 ml Balance -470 ml -1950 ml -280 ml Intake Oral 480 ml 650 ml 220 ml IV Total 350 ml Output Urine Total 1300 ml 2600 ml 500 ml # Bowel Movements 0 0 Result Diagram: 04/23/17 1300 04/25/17 0359 Imaging Last Impressions Tibia/Fibula X-Ray 04/23/17 0000 Signed Impressions: Service Date/Time: Sunday, April 23, 2017 13:39 - CONCLUSION: 1. Mild arthritic changes as above. No acute abnormality identified. John Montiel MD Lower Extremity MRI 04/23/17 0000 Signed Impressions: Service Date/Time: Sunday, April 23, 2017 15:52 - CONCLUSION: 1. No signal abnormality in the marrow of the tibia or fibula to suggest osteomyelitis. 2. T2 prolongation within the substance of the soleus muscle without abnormal enhancement. This is nonspecific in appearance but suggests muscular contusion or edema. 3. No focal fluid collections seen. Dwayne Nam MD Foot X-Ray 04/23/17 0000 Signed Impressions: Service Date/Time: Sunday, April 23, 2017 13:42 - CONCLUSION: Stable radiographic appearance of the osteotomy amputation site distal 1st digit. Dwayne Nam MD Foot MRI 04/23/17 0000 Signed Impressions: Service Date/Time: Sunday, April 23, 2017 15:52 - CONCLUSION: 1. There is a 9 x 3 mm fluid collection anterior and medial to knee amputation osteotomy site with moderate irregular enhancement about the periphery suggesting either seroma or abscess. 2. There is signal change in the marrow of the residual phalanx of the 1st digit. There is T2 prolongation and marrow enhancement in the residual phalanx which could be indicative of osteomyelitis, however, in the perioperative period, postsurgical changes could have similar behavior. A tagged white blood cell scan with SPECT/CT would be potentially helpful to help differentiate between the 2 possibilities. Dwayne Nam MD Objective Remarks GENERAL: Alert, Oriented x 3, NAD. SKIN: Warm and dry. HEAD: Normocephalic. EYES: No scleral icterus. No injection or drainage. NECK: Supple, trachea midline. No JVD or lymphadenopathy. CARDIOVASCULAR: Regular rate and rhythm without murmurs, gallops, or rubs. RESPIRATORY: Breath sounds equal bilaterally. No accessory muscle use. GASTROINTESTINAL: Abdomen soft, non-tender, nondistended. MUSCULOSKELETAL: No cyanosis, or edema. Mild tenderness over left lower ext below knee. No erythema present. BACK: Nontender without obvious deformity. No CVA tenderness. Procedures Left hallux amputation 04/25/2017. A/P Problem List: (1) Toe osteomyelitis, left ICD Code: M86.9 - Osteomyelitis, unspecified (2) HTN (hypertension) ICD Code: I10 - HTN (hypertension) Status: Acute (3) Diabetes mellitus, type II ICD Code: E11.9 - Type 2 diabetes mellitus without complications (4) CHF (congestive heart failure) ICD Code: I50.9 - Heart failure, unspecified (5) COPD (chronic obstructive pulmonary disease) ICD Code: J44.9 - Chronic obstructive pulmonary disease, unspecified (6) DANILO (acute kidney injury) ICD Code: N17.9 - Acute kidney failure, unspecified Assessment and Plan Mr. Alva is a 56 year old male with a history of diabetes mellitus, hypertension, hyperlipidemia, COPD, CHF and recent partial amputation of left hallux due to osteomyelitis who presented to the hospital on 04/23/2017 on advice of his technology support analyst for further radiological studies as well as IV abx. Patient reported that he had erythema of the partially amputated great toe. He had pain and erythema over his left lower ext below knee. - Probable left lower ext cellulitis - Below knee tenderness, erythema largely resolved. - Will continue Vancomycin and Zosyn for now. ID is following. - Left hallux osteomyelitis - Podiatry evaluated patient. - Left hallux amputated on 04/25/2017 - Acute kidney injury - Creatinine 1.39 on admission. Baseline appears to be around 1 to 1.10. - Will hold lisinopril for now. Creatinine improved to 1.13. - Diabetes mellitus - Continue sliding scale insulin. Glucose goal 140-180 in the hospital. - Will start Levemir 7 units QHS. Titrate up as needed. - Chronic methadone use - continue home dose methadone 220mg Qday. Full code. Heparin SQ. Problem Qualifiers (1) HTN (hypertension): Qualified Codes: I10 - Essential (primary) hypertension (2) Diabetes mellitus, type II: Qualified Codes: E11.42 - Type 2 diabetes mellitus with diabetic polyneuropathy Patti Jones DO Apr 25, 2017 09:18
[2017-04-25] MEDS: SODIUM CHLOR 0.45% 1000 ML INJ 1,000 ML IV SCH ×2 (10:00→21:36)
[2017-04-25] MEDS ORDERED: PROPOFOL 200 MG/20 ML AMP IV ONE (12:00)
[2017-04-25 12:14] VITALS: BP 159/77; PULSE 49; RESP 18; TEMP 98.1; O2SAT 95
[2017-04-25] MEDS ORDERED: HYDROmorphone HCL PF 2 MG/ML VIAL ONE (12:26)
[2017-04-25] MEDS ORDERED: MIDAZOLAM HCL 2 MG/2 ML VIAL ONE (12:26)
[2017-04-25] MEDS ORDERED: KETAMINE HCL 500 MG/5 ML VIAL ONE (12:26)
[2017-04-25] MEDS ORDERED: BUPIVACAINE HCL PF 0.25% 30 ML VIAL ONE (12:37)
[2017-04-25] MEDS ORDERED: NEOMYCIN/POLYMYXIN 1 ML G.U. IRRIGANT ONE (12:40)
--- NOTE | 2017-04-25 13:23 | PD.OP ---
Operative Report Left hallux OM Postoperative Diagnosis: same Procedure: Left hallux amputation Surgeon: Clint Morales Tissue Technologist(s): scrub Operation and Findings: Estimated blood loss 5 mL's Anesthesia Mac with local 10 mL 0.25% Marcaine plain Specimen deep wound culture amputation site, digit for pathology Intraoperative findings: Margin appears clear first metatarsal head without's clinical signs of infection Hemostasis pneumatic ankle tourniquet 250 mmHg about the patient's left ankle Justification for procedure: 56-year-old male who presented to my office with crepitus within the pretibial compartment as well as redness and swelling of the left hallux previously amputated side of note the patient was noncompliant and did not follow-up after hallux was amputated initially. The infection concerned me he presented to the hospital he received IV antibiotics over significant improvement of his leg however abscess and osteomyelitis was noted on MRI. Procedure in detail: Under mild sedation the patient was brought in the operating room and brought onto the operating table. Monitored anesthesia care was obtained and the left lower extremity was scrubbed prepped and draped in usual aseptic fashion. The left foot was elevated exsanguinated and the previously placed mid calf tourniquet was inflated 250 mmHg. A fishmouth type incision was made at the base of the proximal phalanx at the level of the first MPJ. The digit was sharply disarticulated down to joint capsule and there is no obvious signs of necrosis or infection at this level. The head of the first metatarsal was noted to be intact with good cartilage without a soft spot or signs of clinical osteomyelitis. Deep culture taken of the bone at this margin. The wound was flushed with copious amounts of normal saline. Bovie and ligation of arterial and venous structures took place. Deep Vicryl was used to close the deep dermis and joint capsule and nylon was used to close skin. Upon relieving the tourniquet there is a prompt capillary response to all digits without a delayed capillary fill time of the dorsal and plantar flaps of the amputation site. The patient will return to the floor to monitor the wound anticipate discharge once culture clears at amputation site and postop bandage changed on day 1 or 2 show appropriate healing. Clint Morales DPM Apr 25, 2017 13:23
[2017-04-25] MEDS ORDERED: DO NOT ADM ANY ANTICOAGULANT DRUGS PRN (14:00)
[2017-04-25 16:00] VITALS: BP 162/77; PULSE 49; RESP 20; TEMP 98.4; O2SAT 18
[2017-04-25 20:00] VITALS: BP 140/66; PULSE 56; RESP 17; TEMP 98.1; O2SAT 94
[2017-04-25] MEDS ORDERED: INSULIN DETEMIR 100 UNITS/ML VIAL SQ SCH (21:00)
[2017-04-26] VITALS: BP 138/67; PULSE 60; RESP 18; TEMP 97.6; O2SAT 95
[2017-04-26] MEDS: VANCOMYCIN INJ 1,000 MG in SODIUM CHLOR 0.9% 250 ML INJ 250 ML IV SCH ×2 (01:31→15:24)
[2017-04-26 04:00] VITALS: BP 133/66; PULSE 58; RESP 17; TEMP 98; O2SAT 96
[2017-04-26] MEDS: PIPERACIL-TAZO 4.5 GM PREMIX 100 ML IV SCH ×3 (06:33→22:00)
[2017-04-26] MEDS: HEPARIN SODIUM - SQ 10,000 UNITS/ML VIAL SQ SCH ×2 (06:37→14:49)
--- NOTE | 2017-04-26 07:58 | HHI.PR ---
Subjective Remarks Follow up for left lower ext pain, left hallux osteomyelitis. Patient is currently doing well. Denies any chest pain, shortness of breath, fever or chills. He underwent left hallux amputation yesterday. Objective Vitals Vital Signs Date Time Temp Pulse Resp B/P (MAP) Pulse Ox O2 Delivery O2 Flow Rate FiO2 04/26/17 04:00 98.0 58 17 133/66 (88) 96 04/26/17 00:00 Room Air 04/26/17 00:00 97.6 60 18 138/67 (90) 95 04/25/17 20:00 Room Air 04/25/17 20:00 98.1 56 17 140/66 (90) 94 04/25/17 16:00 98.4 49 20 162/77 (105) 18 04/25/17 13:55 98.0 53 15 159/79 (105) 95 Room Air 04/25/17 13:45 55 15 153/77 (102) 98 Room Air 04/25/17 13:21 97.8 53 15 161/83 (109) 94 Nasal Cannula 3 04/25/17 12:14 98.1 49 18 159/77 (104) 95 04/25/17 09:05 98.0 49 18 161/72 (101) 95 I/O 04/25/17 04/25/17 04/25/17 04/26/17 04/26/17 04/26/17 07:00 15:00 23:00 07:00 15:00 23:00 Intake Total 220 ml 300 ml 1000 ml 700 ml Output Total 500 ml 5 ml 700 ml 1500 ml Balance -280 ml 295 ml 300 ml -800 ml Intake Oral 220 ml 1000 ml 700 ml IV Total 300 ml Output Urine Total 500 ml 700 ml 1500 ml Estimated Blood Loss 5 ml # Bowel Movements 0 0 Result Diagram: 04/23/17 1300 04/25/17 0359 Objective Remarks GENERAL: Alert, Oriented x 3, NAD. SKIN: Warm and dry. HEAD: Normocephalic. EYES: No scleral icterus. No injection or drainage. NECK: Supple, trachea midline. No JVD or lymphadenopathy. CARDIOVASCULAR: Regular rate and rhythm without murmurs, gallops, or rubs. RESPIRATORY: Breath sounds equal bilaterally. No accessory muscle use. GASTROINTESTINAL: Abdomen soft, non-tender, nondistended. MUSCULOSKELETAL: No cyanosis, or edema. Mild tenderness over left lower ext below knee. No erythema present. BACK: Nontender without obvious deformity. No CVA tenderness. Procedures Left hallux amputation 04/25/2017. A/P Problem List: (1) Toe osteomyelitis, left ICD Code: M86.9 - Osteomyelitis, unspecified (2) HTN (hypertension) ICD Code: I10 - HTN (hypertension) Status: Acute (3) Diabetes mellitus, type II ICD Code: E11.9 - Type 2 diabetes mellitus without complications (4) CHF (congestive heart failure) ICD Code: I50.9 - Heart failure, unspecified (5) COPD (chronic obstructive pulmonary disease) ICD Code: J44.9 - Chronic obstructive pulmonary disease, unspecified (6) DANILO (acute kidney injury) ICD Code: N17.9 - Acute kidney failure, unspecified Assessment and Plan Mr. 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 Patient reported that he had erythema of the partially amputated great toe. He had pain and erythema over his left lower ext below knee. - Probable left lower ext cellulitis - Below knee tenderness, erythema largely resolved. - Will continue Vancomycin and Zosyn for now. ID is following. - Left hallux osteomyelitis - Podiatry evaluated patient. - Left hallux amputated on 04/25/2017 - If okay with podiatry or if pathology shows clear margins, patient can likely be discharged on by mouth antibiotics. - Acute kidney injury - Creatinine 1.39 on admission. Baseline appears to be around 1 to 1.10. - Will hold lisinopril for now. Creatinine improved to 1.13. - Diabetes mellitus - Continue sliding scale insulin. Glucose goal 140-180 in the hospital. - We'll discontinue Levemir. Patient can continue metformin upon discharge. - Chronic methadone use - continue home dose methadone 220mg Qday. Full code. Heparin SQ. Discharge plan: Anticipate discharge on 04/27/2017 on oral antibiotics. Problem Qualifiers (1) HTN (hypertension): Qualified Codes: I10 - Essential (primary) hypertension (2) Diabetes mellitus, type II: Qualified Codes: E11.42 - Type 2 diabetes mellitus with diabetic polyneuropathy Patti Jones DO Apr 26, 2017 07:58
[2017-04-26 08:00] VITALS: BP 196/92; PULSE 55; RESP 20; TEMP 98.4; O2SAT 92
[2017-04-26] MEDS: INSULIN ASPART SUPPLEMENTAL SCALE SQ SCH ×4 (08:00→21:00)
[2017-04-26] MEDS: amLODIPine BESYLATE 5 MG TAB PO SCH (08:33)
[2017-04-26] MEDS: METHADONE HCL 10 MG TAB PO SCH (08:34)
[2017-04-26] MEDS: SODIUM CHLORIDE 0.9% FLUSH 10 ML FLUSH IV FLUSH SCH (08:34)
[2017-04-26] MEDS: DOCUSATE SODIUM 50 MG/SENNA 8.6 MG TAB PO SCH ×2 (08:34→21:00)
[2017-04-26 12:00] VITALS: BP 146/77; PULSE 55; RESP 20; TEMP 98.4; O2SAT 93
[2017-04-26] MEDS: SODIUM CHLOR 0.45% 1000 ML INJ 1,000 ML IV SCH (12:40)
[2017-04-26 16:00] VITALS: BP 147/72; PULSE 54; RESP 20; TEMP 98.3; O2SAT 100
--- NOTE | 2017-04-26 19:48 | HHI.PR ---
Subjective Remarks Patient seen postop day 1 bedside. Denies any nausea, vomiting, fevers, or chills. States he has been walking around with no problem. Denies any pain to left foot. Denies any calf pain Objective Vital Signs Date Time Temp Pulse Resp B/P (MAP) Pulse Ox O2 Delivery O2 Flow Rate FiO2 04/26/17 16:00 98.3 54 20 147/72 (97) 100 04/26/17 12:00 98.4 55 20 146/77 (100) 93 04/26/17 08:00 98.4 55 20 196/92 (126) 92 04/26/17 04:00 98.0 58 17 133/66 (88) 96 04/26/17 00:00 Room Air 04/26/17 00:00 97.6 60 18 138/67 (90) 95 04/25/17 20:00 Room Air 04/25/17 20:00 98.1 56 17 140/66 (90) 94 I/O 04/25/17 04/25/17 04/25/17 04/26/17 04/26/17 04/26/17 07:00 15:00 23:00 07:00 15:00 23:00 Intake Total 220 ml 300 ml 1000 ml 700 ml Output Total 500 ml 5 ml 700 ml 1500 ml Balance -280 ml 295 ml 300 ml -800 ml Intake Oral 220 ml 1000 ml 700 ml IV Total 300 ml Output Urine Total 500 ml 700 ml 1500 ml Estimated Blood Loss 5 ml # Voids 4 # Bowel Movements 0 0 0 Result Diagram: 04/23/17 1300 04/25/17 0359 Imaging Last Impressions Tibia/Fibula X-Ray 04/23/17 0000 Signed Impressions: Service Date/Time: Sunday, April 23, 2017 13:39 - CONCLUSION: 1. Mild arthritic changes as above. No acute abnormality identified. John Montiel MD Lower Extremity MRI 04/23/17 0000 Signed Impressions: Service Date/Time: Sunday, April 23, 2017 15:52 - CONCLUSION: 1. No signal abnormality in the marrow of the tibia or fibula to suggest osteomyelitis. 2. T2 prolongation within the substance of the soleus muscle without abnormal enhancement. This is nonspecific in appearance but suggests muscular contusion or edema. 3. No focal fluid collections seen. Dwayne Nam MD Foot X-Ray 04/23/17 0000 Signed Impressions: Service Date/Time: Sunday, April 23, 2017 13:42 - CONCLUSION: Stable radiographic appearance of the osteotomy amputation site distal 1st digit. Dwayne Nam MD Foot MRI 04/23/17 0000 Signed Impressions: Service Date/Time: Sunday, April 23, 2017 15:52 - CONCLUSION: 1. There is a 9 x 3 mm fluid collection anterior and medial to knee amputation osteotomy site with moderate irregular enhancement about the periphery suggesting either seroma or abscess. 2. There is signal change in the marrow of the residual phalanx of the 1st digit. There is T2 prolongation and marrow enhancement in the residual phalanx which could be indicative of osteomyelitis, however, in the perioperative period, postsurgical changes could have similar behavior. A tagged white blood cell scan with SPECT/CT would be potentially helpful to help differentiate between the 2 possibilities. Dwayne Nam MD Other Results Microbiology Date/Time Source Procedure Growth Status 04/23/17 13:00 Blood Peripheral Aerobic Blood Culture - Preliminary NO GROWTH IN 3 DAYS Resulted 04/23/17 13:00 Blood Peripheral Anaerobic Blood Culture - Preliminary NO GROWTH IN 3 DAYS Resulted 04/25/17 13:03 Wound Toe Fungal Smear - Final NO FUNGAL ELEMENTS SEEN. Resulted 04/25/17 13:03 Wound Toe Fungal Culture Pending Resulted Objective Remarks Lower extremity physical exam: Vascular: Dorsalis pedis 1/4 , posterior tibial 1/4. Capillary refill time within normal limits to digits x4 left foot. Edema present left foot. Neuro: Gross sensation intact to bilateral lower extremity. Pinpoint sensation decreased. No hyperalgesia noted to bilateral lower extremity Dermatology: Normal temperature and turgor to bilateral lower extremity. Incision to left first metatarsal intact with skin well coapted and sutures present. No sanguinous drainage noted. No purulent drainage upon compression. No increased erythema or edema. Musculoskeletal: Tender to palpation to left amputation site. Left hallux irritation noted. Medications and IVs Current Medications Medications (Trade) Dose Ordered Sig/Nithin Route Start Time Stop Time Status Last Admin Sodium Chloride 1,000 ml @ 75 mls/hr [id number] IV 04/23/17 18:00 04/26/17 12:40 (NS Flush) 2 ml UNSCH PRN IV FLUSH 04/23/17 16:30 (NS Flush) 2 ml BID IV FLUSH 04/23/17 21:00 04/26/17 08:34 (Tylenol) 650 mg Q4H PRN PO 04/23/17 16:30 (Zofran Inj) 4 mg Q6H PRN IVP 04/23/17 16:30 (Heparin Inj) 5,000 units Q8H SQ 04/23/17 22:00 04/26/17 14:49 (Narcan Inj) 0.4 mg UNSCH PRN IV PUSH 04/23/17 16:30 (Veena-Colace) 1 tab BID PO 04/23/17 21:00 (Milk Of Magnesia Liq) 30 ml Q12H PRN PO 04/23/17 16:30 (Senokot) 17.2 mg Q12H PRN PO 04/23/17 16:30 (Dulcolax Supp) 10 mg DAILY PRN RECTAL 04/23/17 16:30 (Lactulose Liq) 30 ml DAILY PRN PO 04/23/17 16:30 Vancomycin HCl 1000 mg/Sodium Chloride 250 ml @ 250 mls/hr Q12H IV 04/24/17 02:00 04/26/17 15:24 Pharmacy Profile Note 0 ml @ 0 mls/hr UNSCH OTHER 04/23/17 16:30 Piperacillin Sod/ Tazobactam Sod 100 ml @ 200 mls/hr Q8H IV 04/23/17 22:00 04/26/17 14:48 (D50w (Vial) Inj) 50 ml UNSCH PRN IV PUSH 04/23/17 16:30 04/25/17 08:45 (Glucagon Inj) 1 mg UNSCH PRN OTHER 04/23/17 16:30 (NovoLOG SUPPLEMENTAL SCALE) 1 ACHS SLIDING SCALE SQ 04/23/17 17:00 04/25/17 16:41 (Dolophine) 220 mg DAILY PO 04/24/17 12:00 04/26/17 08:34 (Norvasc) 5 mg DAILY PO 04/25/17 09:00 04/26/17 08:33 Lactated Ringer's 1,000 ml @ 30 mls/hr Q24H PRN IV 04/24/17 23:15 04/27/17 23:14 Sodium Chloride 500 ml @ 30 mls/hr [id number] PRN IV 04/24/17 23:15 2/27/18 23:14 (Betadine 5% Antisepsis Kit) 1 applic ONLINE MERCHANT PRN EACH NARE 04/24/17 23:15 04/27/17 23:14 (Chlorhexidine 2% Cloth) 3 pack ONLINE MERCHANT PRN TOPICAL 04/24/17 23:15 04/27/17 23:14 Miscellaneous Information SPECIFIC LAB TO BE [facility]... ONCE ONCE .XX 04/27/17 01:45 04/27/17 01:46 Assessment and Plan Assessment and Plan 56-year-old male status post left hallux amputation Patient examined and evaluated with all questions answered Dressing change to left lower extremity consisting of Xeroform, 4 x 4's, Rufina and Ayaan. Will await OR cultures and ID recommendations for outpatient antibiotics Okay to DC per podiatry once appropriate antibiotic recommendations have been made based on the OR cultures Left hallux margin growing staph aureus Bone biopsy pending Nursing to change dressing patient still in house in 72 hours Dressing to stay clean dry and intact to left lower extremity Please dispense postop shoe to patient Rhoda David DPM Apr 26, 2017 19:48
[2017-04-26 20:00] VITALS: BP 150/73; PULSE 57; RESP 16; TEMP 98.4; O2SAT 93
[2017-04-27] VITALS: BP 152/84; PULSE 48; RESP 16; TEMP 98.3; O2SAT 93
[2017-04-27] MEDS: SODIUM CHLORIDE 0.9% FLUSH 10 ML FLUSH IV FLUSH SCH (00:04)
[2017-04-27] MEDS: HEPARIN SODIUM - SQ 10,000 UNITS/ML VIAL SQ SCH ×3 (00:05→15:13)
[2017-04-27] MEDS ORDERED: PHARMACY ORDERED LAB ONE (01:45)
[2017-04-27 02:03] LABS: CREATININE 1.06 MG/DL (0.60-1.30)
[2017-04-27 02:04] LABS: VANCOMYCIN TROUGH 22.5 MCG/ML (5.0-10.0)
[2017-04-27] MEDS: VANCOMYCIN INJ 1,000 MG in SODIUM CHLOR 0.9% 250 ML INJ 250 ML IV SCH ×2 (02:38→15:13)
[2017-04-27] MEDS: SODIUM CHLOR 0.45% 1000 ML INJ 1,000 ML IV SCH (02:39)
[2017-04-27 04:00] VITALS: BP 129/56; PULSE 49; RESP 16; TEMP 98.5; O2SAT 95
[2017-04-27] MEDS: PIPERACIL-TAZO 4.5 GM PREMIX 100 ML IV SCH ×2 (05:42→15:12)
[2017-04-27 08:00] VITALS: BP 145/67; PULSE 50; RESP 20; TEMP 98.4; O2SAT 95
[2017-04-27] MEDS: amLODIPine BESYLATE 5 MG TAB PO SCH (08:57)
[2017-04-27] MEDS: DOCUSATE SODIUM 50 MG/SENNA 8.6 MG TAB PO SCH (08:57)
[2017-04-27] MEDS: METHADONE HCL 10 MG TAB PO SCH (08:57)
[2017-04-27] MEDS: INSULIN ASPART SUPPLEMENTAL SCALE SQ SCH ×2 (08:57→12:00)
--- NOTE | 2017-04-27 10:50 | HHI.FF ---
Infusion Therapy Location of Infusion Therapy: Ambulatory Infusion Therapy Order Patient Information Appointment Date: Apr 28, 2017 Patient Weight 70.2 kg Diagnosis: (1) Toe osteomyelitis, left Coded Allergies: codeine (Verified Adverse Reaction, Severe, NAUSEA, 04/23/17) Administer Medication Ceftriaxone 2 grams IV q 24 hours Start Treatment: Apr 28, 2017 Stop Treatment: May 12, 2017 Additional Information Venous access: Other (Midline. ) Additional Instructions [x] Peripheral flush and dressing changes per protocol [x] Implanted port and central passenger interline clerk: * Implanted port: 10 ml Normal Saline followed by 5 ml Heparin 100 units/ml Heparin flush after each use and monthly to maintain. [] May leave port accessed during therapy. [] May leave peripheral site accessed for duration of therapy. [x] If patient has SOB or respiratory distress, check oxygen saturation. If less than 90% or clinical signs of respiratory distress, administer oxygen at 2 L/min. via nasal cannula and notify physician. [x] Anaphylaxis/Reaction orders: * Stop infusion. * Keep IV line open with saline flush. * Notify physician. * Monitor vital signs every 15 minutes until symptoms resolve. * Check Oxygen saturation; Oxygen at 2 L/min. via nasal cannula if less than 90% or clinical signs of respiratory distress. * Administer diphenhydramine (Benadryl) 25 mg IV STAT, (unless patient has received as pre-med). May repeat once, if necessary. * Solu-Cortef 250 mg IVP over 30-60 seconds, use 100 mg vials for each dissolution. * Epinephrine (1mg/1 ml) 0.3 mg subcutaneously or IVP now with any signs of respiratory distress. * Check with physician for new additional pre-med orders if patient is re- challenged or re-treated. [x] May remove PICC line when treatment complete, after confirming with Physician. [x] If the patient is admitted to the hospital, the ED, or transferred via [facility] , complete transfer form including medication reconciliation order sheet. Laboratory Tests Additional Information Discussed with ID Dr. Chang. Patti Jones DO Apr 27, 2017 10:50
--- NOTE | 2017-04-27 11:01 | HHI.IDPN ---
Note Infectious Disease Note Patient without complaints. Afebrile. No chills. PAST MEDICAL HISTORY COPD, diabetes mellitus, CHF, osteoarthritis, bilateral hernia repair, tonsillectomy, hemorrhoidectomy, partial amputation of the left great toe. ALLERGIES CODEINE MEDICATIONS 1. Vancomycin. 2. Piperacillin / tazobactam. OBJECTIVE: Vital Signs Date Time Temp Pulse Resp B/P (MAP) Pulse Ox O2 Delivery O2 Flow Rate FiO2 04/27/17 08:00 98.4 50 20 145/67 (93) 95 04/27/17 04:00 Room Air 04/27/17 04:00 98.5 49 16 129/56 (80) 95 04/27/17 00:00 98.3 48 16 152/84 (106) 93 04/27/17 00:00 Room Air 04/26/17 20:00 98.4 57 16 150/73 (98) 93 04/26/17 20:00 Room Air 04/26/17 16:00 98.3 54 20 147/72 (97) 100 04/26/17 12:00 98.4 55 20 146/77 (100) 93 Laboratory Tests Test 04/27/17 01:20 Creatinine 1.06 MG/DL Estimat Glomerular Filtration Rate 72 ML/MIN Microbiology Date/Time Source Procedure Growth Status 04/25/17 13:03 Wound Toe Fungal Smear - Final NO FUNGAL ELEMENTS SEEN. Resulted 04/25/17 13:03 Wound Toe Fungal Culture Pending Resulted 04/25/17 13:03 Wound Toe Acid Fast Stain Pending Received 04/25/17 13:03 Wound Toe Mycobacterial Culture Pending Received 04/25/17 13:03 Wound Toe Gram Stain - Final Complete 04/25/17 13:03 Wound Culture - Final Staphylococcus Aureus Complete IMAGING: Tibia/Fibula X-Ray 04/23/17 0000 Signed Impressions: Service Date/Time: Sunday, April 23, 2017 13:39 - CONCLUSION: 1. Mild arthritic changes as above. No acute abnormality identified. John Montiel MD Lower Extremity MRI 04/23/17 0000 Signed Impressions: Service Date/Time: Sunday, April 23, 2017 15:52 - CONCLUSION: 1. No signal abnormality in the marrow of the tibia or fibula to suggest osteomyelitis. 2. T2 prolongation within the substance of the soleus muscle without abnormal enhancement. This is nonspecific in appearance but suggests muscular contusion or edema. 3. No focal fluid collections seen. Dwayne Nam MD Foot X-Ray 04/23/17 0000 Signed Impressions: Service Date/Time: Sunday, April 23, 2017 13:42 - CONCLUSION: Stable radiographic appearance of the osteotomy amputation site distal 1st digit. Dwayne Nam MD Foot MRI 04/23/17 0000 Signed Impressions: Service Date/Time: Sunday, April 23, 2017 15:52 - CONCLUSION: 1. There is a 9 x 3 mm fluid collection anterior and medial to knee amputation osteotomy site with moderate irregular enhancement about the periphery suggesting either seroma or abscess. 2. There is signal change in the marrow of the residual phalanx of the 1st digit. There is T2 prolongation and marrow enhancement in the residual phalanx which could be indicative of osteomyelitis, however, in the perioperative period, postsurgical changes could have similar behavior. A tagged white blood cell scan with SPECT/CT would be potentially helpful to help differentiate between the 2 possibilities. Dwayne Nam MD PHYSICAL EXAMINATION GENERAL: No acute distress. HEENT: Head is atraumatic. Extraocular movements grossly intact, pupils reactive to light. No icterus. Oropharynx: moist mucosa without lesions. Neck: Supple without adenopathy. Lungs: Clear breath sounds. Heart: Distant S1-S2 without murmurs, rubs or gallops. Abdomen: Bowel sounds present, soft. Extremities: Dressing on r. foot post op. The rest of the extremities are intact. Skin: No rash. Neuro: Nonfocal. Psych: Calm and cooperative and pleasant. IMPRESSION Left hallux osteomyelitis. Staph Aureus at the wound margin culture. MRI suggesting osteomyelitis of the hallux. Post left hallux amputation 04/25. Previous partial amputation of the left hallux one month ago. RECOMMENDATIONS IV Ceftriaxone x 2 weeks out patient via infusion clinic. Follow up with podiatry. Discussed with Dr. Jones. Dr. Jones to write orders. Okay for discharge from my standpoint. Truman Chang MD Apr 27, 2017 11:01
[2017-04-27 11:53] VITALS: BP 151/72; PULSE 57; RESP 20; TEMP 98.2; O2SAT 96
[2017-04-27] MEDS ORDERED: METF500T PO (15:51)
[2017-04-27] MEDS ORDERED: AMLO5 PO (15:58)
[2017-04-27] MEDS ORDERED: LISI10TA3 PO (15:58)
[2017-04-27 16:15] VITALS: BP 180/101; PULSE 109; RESP 20; TEMP 100.6; O2SAT 95
[2017-04-28] MEDS ORDERED: PHARMACY ORDERED LAB ONE (01:45)
[2017-04-28] MEDS ORDERED: CEFT2INJ2 IV (14:49)
== END 2017-04-27 16:09 | disposition home or self-care (01) | DRG 617 ==
LOC: NEPC 12:02 → NEDA 14:48 → N04A 17:35
PROVIDERS: ADMIT Hospitalist; ATTEND Hospitalist
PROC: 0Y6Q0Z0 Detachment at Left 1st Toe, Complete, Open Approach (ICD-10-PCS; principal; 2017-04-25 12:32)
DX: E11.69 Type 2 diabetes mellitus with other specified complication (principal); L03.116 Cellulitis of left lower limb; N17.9 Acute kidney failure, unspecified; M86.172 Other acute osteomyelitis, left ankle and foot; I50.9 Heart failure, unspecified; I11.0 Hypertensive heart disease with heart failure; E11.42 Type 2 diabetes mellitus with diabetic polyneuropathy; M19.90 Unspecified osteoarthritis, unspecified site; K74.60 Unspecified cirrhosis of liver; J44.9 Chronic obstructive pulmonary disease, unspecified; E78.5 Hyperlipidemia, unspecified; B95.61 Methicillin susceptible Staphylococcus aureus infection as the cause of diseases classified elsewhere; F32.9 Major depressive disorder, single episode, unspecified; F41.9 Anxiety disorder, unspecified; F17.210 Nicotine dependence, cigarettes, uncomplicated; Z16.24 Resistance to multiple antibiotics; Z88.5 Allergy status to narcotic agent; Z89.412 Acquired absence of left great toe; Z91.19 Patient's noncompliance with other medical treatment and regimen
CPT/HCPCS: 36569; 73590; 73630; 73720; 76937; 80048; 80202; 82565; 82948; 85025; 85652; 86140; 86403; 87015; 87040; 87070; 87102; 87116; 87147; 87186; 87205; 87206; 88305; 88307; 88311; 93005; 96374; 96375; J1170; J1644; J1815; J2250; J2543; J3370; J7050; L3260

== ENCOUNTER 2017-05-19 18:28 | Inpatient (IN) | payer SELFPAY ==
[~2017-05-19] VITALS: Ht 172.7 cm; Wt 66.7 kg
[~2017-05-19 18:28] MED LIST changes: +CEFT2INJ2 IV; +METF500T PO
[2017-05-19 18:44] VITALS: BP 101/66; PULSE 69; RESP 18; TEMP 97.5; O2SAT 92
[2017-05-19] MEDS ORDERED: ONDANSETRON HCL 4 MG/2 ML VIAL IV PUSH ONE (20:45)
[2017-05-19] MEDS ORDERED: VANCOMYCIN INJ 1,000 MG in SODIUM CHLOR 0.9% 250 ML INJ 250 ML IV ONE (20:45)
[2017-05-19] MEDS ORDERED: PIPERACIL-TAZO 3.375 GM PREMIX 50 ML IV ONE (20:45)
[2017-05-19] MEDS ORDERED: MORPHINE SULFATE 2 MG/ML INJ IV PUSH ONE (20:45)
[2017-05-19 20:46] VITALS: BP 146/64; PULSE 64; RESP 18; O2SAT 99
--- NOTE | 2017-05-19 21:06 | PD ---
HPI Chief Complaint: Skin Problem Time Seen by Provider: 20:36 Travel History International Travel<30 days: No Contact w/Intl Traveler<30days: No Traveled to known affect area: No History of Present Illness HPI 56-year-old male that presents to the ED for evaluation of left leg infection. Patient has a history of previous amputation to his left leg. Patient has had 2 surgeries on this foot. Patient has a history of diabetes and follows with Dr. Gomez. Patient went to see Dr. Gomez today he was recommended to come here for IV antibiotics and admission as well as possible surgical treatment. Patient states that his pain on the left foot is 7 out of 10. He denies any new injury. He does per patient appears to be compliant with medications taking clindamycin and Cipro. Patient states that the redness and signs of infection have been ongoing for some time. He states that he was sent here with a prescription from Dr. oGmez's office to states that he is to be admitted to have IV antibiotics and surgical treatment. Allergy to codeine. PFSH Past Medical History Hx Anticoagulant Therapy: No Arthritis: Yes Asthma: Yes Blood Disorders: No Anxiety: Yes Depression: Yes Heart Rhythm Problems: No Cancer: No Cardiovascular Problems: Yes High Cholesterol: Yes Chemotherapy: No Chest Pain: Yes Congestive Heart Failure: Yes Cirrhosis: Yes COPD: Yes Cerebrovascular Accident: No Diabetes: Yes Patient Takes Glucophage: Yes Diminished Hearing: No Endocrine: Yes Gastrointestinal Disorders: Yes GERD: No Genitourinary: No Headaches: Yes Hepatitis: Yes (HEP C) Hiatal Hernia: Yes (REMOVED) Hypertension: Yes Immune Disorder: No Implanted Vascular Access Dvce: Yes Musculoskeletal: Yes (BACK PROBLEMS) Neurologic: Yes (NEUROPATHY IN FEET) Psychiatric: Yes Reproductive: No Respiratory: Yes (COPD) Immunizations Current: Yes Migraines: Yes Myocardial Infarction: No Radiation Therapy: No Sleep Apnea: Yes Thyroid Disease: No Ulcer: No Past Surgical History Abdominal Surgery: Yes (HERNIA REPAIR X2, ) Endocrine Surgery: Yes Eye Surgery: Yes (METAL REMOVED LEFT THIGH) Hysterectomy: No Tonsillectomy: Yes Other Surgery: Yes (HEMMROIDECTOMY) Social History Alcohol Use: No (quit 12 yrs ago) Tobacco Use: Yes (quit 1 month ago.) Substance Use: Yes (COCAINE) Allergies-Medications (Allergen,Severity, Reaction): Coded Allergies: codeine (Verified Adverse Reaction, Severe, NAUSEA, 314/18) Reported Meds & Prescriptions Reported Meds & Active Scripts Active Norvasc (Amlodipine Besylate) 5 Mg Tab 5 Mg PO DAILY Metformin (Metformin HCl) 500 Mg Tab 500 Mg PO BIDPC Reported Gabapentin 300 Mg Cap 300 Mg PO PRN Clindamycin (Clindamycin HCl) 300 Mg Cap 300 Mg PO Cipro (Ciprofloxacin HCl) 250 Mg Tab Unknown Dose PO BID Lisinopril 20 Mg Tab 20 Mg PO DAILY Methadone (Methadone HCl) 40 Mg Tab 220 Mg PO DAILY Review of Systems Except as stated in HPI: all other systems reviewed are Neg Physical Exam Narrative GENERAL: SKIN: Warm and dry. HEAD: Atraumatic. Normocephalic. EYES: Pupils equal and round. No scleral icterus. No injection or drainage. ENT: No nasal bleeding or discharge. Mucous membranes pink and moist. Tongue is midline. No uvula deviation. NECK: Trachea midline. No JVD. CARDIOVASCULAR: Regular rate and rhythm. No murmurs, S3, S4. RESPIRATORY: No accessory muscle use. Clear to auscultation. Breath sounds equal bilaterally. GASTROINTESTINAL: Abdomen soft, non-tender, nondistended. Hepatic and splenic margins not palpable. MUSCULOSKELETAL: Extremities without clubbing, cyanosis, or edema. No obvious deformities. Full range of motion of upper and lower extremities bilaterally. 2+ pulses bilaterally. No lumbar, thoracic, cervical spine tenderness to palpation. Patient has surgical scar to the left foot on the medial aspect of the foot were the first and second toe with a been. Patient does have sutures in place and has an area of erythema and warmth and purulence coming from it. Some purulence coming from it. Slightly tender to touch. NEUROLOGICAL: Awake and alert. No obvious cranial nerve deficits. Motor grossly within normal limits. Five out of 5 muscle strength in the arms and legs. Normal speech. PSYCHIATRIC: Appropriate mood and affect; insight and judgment normal. Data Data Last Documented VS Vital Signs Date Time Temp Pulse Resp B/P (MAP) Pulse Ox O2 Delivery O2 Flow Rate FiO2 05/19/17 20:46 64 18 146/64 (91) 99 Room Air 05/19/17 18:44 97.5 Orders Orders Complete Blood Count With Diff (05/19/17 18:49) Prothrombin Time / Inr (Pt) (05/19/17 18:49) Act Partial Throm Time (Ptt) (05/19/17 18:49) Blood Culture (05/19/17 20:40) Wound Culture And Gram Stain (05/19/17 20:40) Chest, Single Ap (05/19/17 20:40) Iv Access Insert/Monitor (05/19/17 20:40) C-Reactive Protein (Crp) (05/19/17 20:40) Vancomycin Inj (Vancomycin Inj) (05/19/17 20:45) Piperacil-Tazo 3.375 Gm Premix (Zosyn 3. (05/19/17 20:45) Morphine Inj (Morphine Inj) (05/19/17 20:45) Ondansetron Inj (Zofran Inj) (05/19/17 20:45) Foot, Complete ([id number]) (05/19/17 ) Comprehensive Metabolic Panel (05/19/17 21:58) Admit Order (Ed Use Only) (05/19/17 22:33) Labs Laboratory Tests Test 05/19/17 21:58 White Blood Count 8.9 TH/MM3 Red Blood Count 3.39 MIL/MM3 Hemoglobin 9.7 GM/DL Hematocrit 28.9 % Mean Corpuscular Volume 85.4 FL Mean Corpuscular Hemoglobin 28.6 PG Mean Corpuscular Hemoglobin Concent 33.5 % Red Cell Distribution Width 15.3 % Platelet Count 210 TH/MM3 Mean Platelet Volume 7.5 FL Neutrophils (%) (Auto) 53.8 % Lymphocytes (%) (Auto) 33.0 % Monocytes (%) (Auto) 11.3 % Eosinophils (%) (Auto) 1.5 % Basophils (%) (Auto) 0.4 % Neutrophils # (Auto) 4.8 TH/MM3 Lymphocytes # (Auto) 2.9 TH/MM3 Monocytes # (Auto) 1.0 TH/MM3 Eosinophils # (Auto) 0.1 TH/MM3 Basophils # (Auto) 0.0 TH/MM3 CBC Comment DIFF FINAL Differential Comment Prothrombin Time 11.3 SEC Prothromb Time International Ratio 1.1 RATIO Activated Partial Thromboplast Time 30.5 SEC Blood Urea Nitrogen 26 MG/DL Creatinine 1.57 MG/DL Random Glucose 65 MG/DL Total Protein 7.3 GM/DL Albumin 2.9 GM/DL Calcium Level 8.1 MG/DL Alkaline Phosphatase 79 U/L Aspartate Amino Transf (AST/SGOT) 18 U/L Alanine Aminotransferase (ALT/SGPT) 16 U/L Total Bilirubin 0.8 MG/DL Sodium Level 133 MEQ/L Potassium Level 3.8 MEQ/L Chloride Level 99 MEQ/L Carbon Dioxide Level 26.1 MEQ/L Anion Gap 8 MEQ/L Estimat Glomerular Filtration Rate 46 ML/MIN C-Reactive Protein 9.30 MG/DL MDM Medical Decision Making Medical Screen Exam Complete: Yes Emergency Medical Condition: Yes Medical Record Reviewed: Yes Interpretation(s) CBC & BMP Diagram 05/19/17 21:58 Total Protein 7.3, Albumin 2.9 L, Calcium Level 8.1 L, Alkaline Phosphatase 79, Aspartate Amino Transf (AST/SGOT) 18, Alanine Aminotransferase (ALT/SGPT) 16, Total Bilirubin 0.8 Last Impressions Chest X-Ray 05/19/170 Signed Impressions: Service Date/Time: Friday, May 19, 2017 21:21 - CONCLUSION: No acute disease. Mk Mtz MD Foot X-Ray 05/19/17 0000 Signed Impressions: Service Date/Time: Friday, May 19, 2017 21:23 - CONCLUSION: 1. Amputation of the left great toe. No bony destructive changes. Mk Mtz MD CRP elevated Differential Diagnosis Cellulitis versus postsurgical infection versus cervical infection versus osteomyelitis Narrative Course 56-year-old male that presents to the ED for evaluation of left foot infection. Patient was properly examined and was found to have signs and symptoms consistent appears to be post surgical infection. Patient comes here with paperwork from Dr. Mckenna who wants the patient admitted. Labs and imaging were ordered. Patient is started on IV antibiotics. Given IV pain medication. Case was discussed with Dr. Nava who agrees to admission. Patient was admitted. Diagnosis Primary Impression: Cellulitis Qualified Codes: L03.116 - Cellulitis of left lower limb Additional Impression: Wound infection after surgery Qualified Codes: T81.4XXA - Infection following a procedure, initial encounter Admitting Information Admitting Physician Requests: Admit Saurabh Gao May 19, 2017 21:06
[2017-05-19 22:10] VITALS: BP 126/72; PULSE 70; RESP 18; O2SAT 97
[2017-05-19 22:12] LABS: AUTOMATED NEUTROPHIL # 4.8 TH/MM3 (1.8-7.7); BASOPHIL % 0.4 % (0.0-2.0); EOSINOPHIL # 0.1 TH/MM3 (0-0.4); EOSINOPHIL % 1.5 % (0.0-4.0); HEMATOCRIT 28.9 % (39.0-51.0); HEMOGLOBIN 9.7 GM/DL (13.0-17.0); LYMPHOCYTE # 2.9 TH/MM3 (1.0-4.8); MEAN CELL VOLUME 85.4 FL (80.0-100.0); MEAN CORPUSCULAR HEMOGLOBIN 28.6 PG (27.0-34.0); MEAN CORPUSCULAR HGB CONC 33.5 % (32.0-36.0); MEAN PLATELET VOLUME 7.5 FL (7.0-11.0); MONO % 11.3 % (0.0-8.0); NEUT % 53.8 % (16.0-70.0); PLATELET COUNT 210 TH/MM3 (150-450); RED BLOOD COUNT 3.39 MIL/MM3 (4.50-5.90); RED CELL DISTRIBUTION WIDTH 15.3 % (11.6-17.2); WHITE BLOOD COUNT 8.9 TH/MM3 (4.0-11.0)
[2017-05-19] MEDS ORDERED: LISI-515 PO (22:12)
[2017-05-19] MEDS ORDERED: CLIN300C5 PO (22:12)
[2017-05-19] MEDS ORDERED: CIPR250T52 PO (22:12)
[2017-05-19] MEDS ORDERED: GABA300C5 PO (22:12)
--- NOTE | 2017-05-19 22:16 | RADRPT ---
EXAM DATE/TIME: 05/19/2017 21:21 [facility] COMPARISON: No previous studies available for comparison. INDICATIONS : Patient complains of shortness of breath. MEDICAL HISTORY : Chronic obstructive pulmonary disease. Congestive heart failure. SURGICAL HISTORY : None. ENCOUNTER: Initial ACUITY: 1 day PAIN SCORE: 0/10 LOCATION: chest FINDINGS: A single view of the chest demonstrates the lungs to be symmetrically aerated without evidence of mas s, infiltrate or effusion. The cardiomediastinal contours are unremarkable. Osseous structures are intact. CONCLUSION: No acute disease. Mk Mtz MD on May 19, 2017 at 22:13 Board Certified Radiologist. This report was verified electronically.
--- NOTE | 2017-05-19 22:20 | RADRPT ---
EXAM DATE/TIME: 05/19/2017 21:23 [facility] COMPARISON: FOOT LEFT COMPLETE ([id number]), April 23, 2017, 13:42. INDICATIONS : Patient complains of left foot pain. MEDICAL HISTORY : Diabetes mellitus type 2. Chronic obstructive pulmonary disease. Arthritis, CHF. SURGICAL HISTORY : Left great toe amputation. ENCOUNTER: Initial ACUITY: 1 week PAIN SCORE: 7/10 LOCATION: Left Foot FINDINGS: The great toe has been amputated. No bony destructive changes identified in the remainder of the left foot. No acute fracture. CONCLUSION: 1. Amputation of the left great toe. No bony destructive changes. Mk Mtz MD on May 19, 2017 at 22:15 Board Certified Radiologist. This report was verified electronically.
[2017-05-19 22:22] LABS: INTERNATIONAL NORMALIZED RATIO 1.1 RATIO; PROTHROMBIN TIME - PATIENT 11.3 SEC (9.8-11.6)
[2017-05-19 22:23] LABS: ALBUMIN 2.9 GM/DL (3.4-5.0); BICARBONATE 26.1 MEQ/L (21.0-32.0); BLOOD UREA NITROGEN 26 MG/DL (7-18); CALCIUM 8.1 MG/DL (8.5-10.1); CHLORIDE 99 MEQ/L (98-107); CREATININE 1.57 MG/DL (0.60-1.30); GLOMERULAR FILTRATION RATE 46 ML/MIN (>89); GLUCOSE,RANDOM 65 MG/DL (74-106); SODIUM (NA) 133 MEQ/L (136-145)
[2017-05-19 22:24] LABS: ALT (GPT) 16 U/L (12-78); AST (GOT) 18 U/L (15-37)
[2017-05-19 22:26] LABS: ALKALINE PHOSPHATASE 79 U/L (45-117); TOTAL BILIRUBIN ADULT 0.8 MG/DL (0.2-1.0); TOTAL PROTEIN 7.3 GM/DL (6.4-8.2)
[2017-05-19] MEDS ORDERED: SODIUM CHLORIDE 0.9% FLUSH 10 ML FLUSH IV FLUSH PRN (22:45)
[2017-05-19] MEDS ORDERED: GLUCAGON 1 MG/ML VIAL OTHER PRN (22:45)
[2017-05-19] MEDS ORDERED: NALOXONE HCL 0.4 MG/ML AMP IV PUSH PRN (22:45)
[2017-05-19] MEDS ORDERED: MORPHINE SULFATE 2 MG/ML INJ IV PUSH PRN (22:45)
[2017-05-19] MEDS ORDERED: Vancomycin Consult Pharmacy 1 EA OTHER SCH (22:45)
[2017-05-19] MEDS ORDERED: DEXTROSE 50% IN WATER 50 ML VIAL(D50) IV PUSH PRN (22:45)
--- NOTE | 2017-05-19 23:18 | HHI.HP ---
[facility] No Primary Care Physician Admission Diagnosis left foot post surgical wound infection Diagnoses: Travel History International Travel<30 Days: No Contact w/Intl Traveler <30 Da: No Traveled to Known Affected Are: No History of Present Illness History from patient, ER physician communication, interview of medical records. Patient reported that he wants to his caustics loader office today and was sent to the hospital. He reports his caustics loader that starting him on Wednesday, about 2 days ago for his left big toe infection. He was started on antibiotics at that time with ciprofloxacin and clindamycin. Today, on a recheck appointment, the wound was not improving and therefore he was sent here. Patient is diabetic. Patient reports that there has been purulent whitish discharge constantly from the wound. However denies fever at home. Patient reports of significant weight loss since the of his about 2 years ago. He reports that he has been quite depressed and has not been eating or drinking well. He also has been homeless since then. Denies any dysphagia/odynophagia. Review of Systems Except as stated in HPI: all other systems reviewed are Neg Past Family Social History Past Medical History htn dm chf at one point depression when his 2yrs ago copd hepatitis C liver cirrhosis right foot chronically shorter than left from prior hip fx Past Surgical History left thigh glass removal hemorrhoidectomy left toe amputation tonsilectomy left inguinal hernia abdominal sx for nail injuries from work Allergies: Coded Allergies: codeine (Verified Adverse Reaction, Severe, NAUSEA, 05/12/17) Family History dad- heart problems, asthma father's mother- had cancer, not sure which kind, maybe liver - but related to etoh Social History quit smoking about a month- used to smoke about 0.5-1 ppd quit etoh about 10-11 yrs ago; used to drink heavily quit drugs about 10-11 yrs ago as well, used to use iv heroine and everything Physical Exam Vital Signs Vital Signs Date Time Temp Pulse Resp B/P (MAP) Pulse Ox O2 Delivery O2 Flow Rate FiO2 05/19/17 20:46 64 18 146/64 (91) 99 Room Air 05/19/17 18:44 97.5 69 18 101/66 (79) 92 Physical Exam GENERAL: This is a well-nourished, well-developed patient, in no apparent distress. SKIN: No rashes, ecchymoses or lesions. Cool and dry. HEAD: Atraumatic. Normocephalic. No temporal or scalp tenderness. EYES: No scleral icterus. No injection or drainage. ENT: Nose without bleeding, purulent drainage or septal hematoma. Airway patent. NECK: Trachea midline. No JVD Supple, nontender, no meningeal signs. CARDIOVASCULAR: Regular rate and rhythm without murmurs, gallops, or rubs. RESPIRATORY: Clear to auscultation. Breath sounds equal bilaterally. No wheezes , rales, or rhonchi. GASTROINTESTINAL: Abdomen soft, non-tender, nondistended.. No guarding. MUSCULOSKELETAL: Extremities without clubbing, cyanosis, or edema. . No calf tenderness. LEFT big toe amputated. left foot medial aspect near bunion area with erythema, swelling, purulent discharge in between sutures NEUROLOGICAL: Awake and alert. Motor and sensory grossly within normal limits. Normal speech. Laboratory Laboratory Tests Test 05/19/17 21:58 White Blood Count 8.9 Red Blood Count 3.39 Hemoglobin 9.7 Hematocrit 28.9 Mean Corpuscular Volume 85.4 Mean Corpuscular Hemoglobin 28.6 Mean Corpuscular Hemoglobin Concent 33.5 Red Cell Distribution Width 15.3 Platelet Count 210 Mean Platelet Volume 7.5 Neutrophils (%) (Auto) 53.8 Lymphocytes (%) (Auto) 33.0 Monocytes (%) (Auto) 11.3 Eosinophils (%) (Auto) 1.5 Basophils (%) (Auto) 0.4 Neutrophils # (Auto) 4.8 Lymphocytes # (Auto) 2.9 Monocytes # (Auto) 1.0 Eosinophils # (Auto) 0.1 Basophils # (Auto) 0.0 CBC Comment DIFF FINAL Differential Comment Prothrombin Time 11.3 Prothromb Time International Ratio 1.1 Activated Partial Thromboplast Time 30.5 Blood Urea Nitrogen 26 Creatinine 1.57 Random Glucose 65 Total Protein 7.3 Albumin 2.9 Calcium Level 8.1 Alkaline Phosphatase 79 Aspartate Amino Transf (AST/SGOT) 18 Alanine Aminotransferase (ALT/SGPT) 16 Total Bilirubin 0.8 Sodium Level 133 Potassium Level 3.8 Chloride Level 99 Carbon Dioxide Level 26.1 Anion Gap 8 Estimat Glomerular Filtration Rate 46 C-Reactive Protein 9.30 Date/Time Source Procedure Growth Status 05/19/17 20:54 Blood Peripheral Aerobic Blood Culture Pending Received 05/19/17 20:54 Blood Peripheral Anaerobic Blood Culture Pending Received 05/19/17 20:54 Wound Foot Gram Stain Pending Received 05/19/17 20:54 Wound Foot Wound Culture Pending Received Result Diagram: 05/19/17215705/19/172157 Imaging Last 48 hours Impressions Chest X-Ray 05/19/172039 Signed Impressions: Service Date/Time: Friday, May 19, 2017 21:21 - CONCLUSION: No acute disease. Mk Mtz MD Foot X-Ray 05/19/17 0000 Signed Impressions: Service Date/Time: Friday, May 19, 2017 21:23 - CONCLUSION: 1. Amputation of the left great toe. No bony destructive changes. Mk Mtz MD Caprini VTE Risk Assessment Caprini VTE Risk Assessment: Mod/High Risk (score >= 2) Caprini Risk Assessment Model Point Value = 1 Point Value = 2 Point Value = 3 Point Value = 5 Age 41-60 Minor surgery BMI > 25 kg/m2 Swollen legs Varicose veins or History of unexplained or recurrent spontaneous Oral contraceptives or hormone replacement Sepsis (< 1 month) Serious lung disease, including pneumonia (< 1 month) Abnormal pulmonary function Acute myocardial infarction Congestive heart failure (< 1 month) History of inflammatory bowel disease Medical patient at bed rest Age 61-74 Arthroscopic surgery Major open surgery (> 45 min) Laparoscopic surgery (> 45 min) Malignancy Confined to bed (> 72 hours) Immobilizing plaster cast Central venous access Age >= 75 History of VTE Family history of VTE Factor V Leiden Prothrombin [id number] Lupus anticoagulant Anticardiolipin antibodies Elevated serum homocysteine Heparin-induced thrombocytopenia Other congenital or acquired thrombophilia Stroke (< 1 month) Elective arthroplasty Hip, pelvis, or leg fracture Acute spinal cord injury (< 1 month) Prophylaxis Regimen Total Risk Factor Score Risk Level Prophylaxis Regimen 0-1 Low Early ambulation 2 Moderate Order ONE of the following: *Sequential Compression Device (SCD) *Heparin 5000 units SQ BID 3-4 Higher Order ONE of the following medications: *Heparin 5000 units SQ TID *Enoxaparin/Lovenox 40 mg SQ daily (WT < 150 kg, CrCl > 30 mL/min) *Enoxaparin/Lovenox 30 mg SQ daily (WT < 150 kg, CrCl > 10-29 mL/min) *Enoxaparin/Lovenox 30 mg SQ BID (WT < 150 kg, CrCl > 30 mL/min) AND/OR *Sequential Compression Device (SCD) 5 or more Highest Order ONE of the following medications: *Heparin 5000 units SQ TID (Preferred with Epidurals) *Enoxaparin/Lovenox 40 mg SQ daily (WT < 150 kg, CrCl > 30 mL/min) *Enoxaparin/Lovenox 30 mg SQ daily (WT < 150 kg, CrCl > 10-29 mL/min) *Enoxaparin/Lovenox 30 mg SQ BID (WT < 150 kg, CrCl > 30 mL/min) AND *Sequential Compression Device (SCD) Assessment and Plan Assessment and Plan Impression: Left foot post a 4 and infection in a diabetic. Anemia. Acute on chronic. Acute renal failure Weight loss significant in the past 2 years. Partly secondary to depression from this and his , and being homeless. Hypertension Diabetes History of CHF. However reports this has resolved since lost significant weight. Depression in the past 2 years after he lost his COPD Hepatitis C Liver cirrhosis Plan: Consult patient's caustics loader. Vancomycin and Zosyn per creatinine clearance and levels. We'll follow podiatry recommendations. Possible that patient may need surgical intervention. We'll follow culture results. We'll monitor fingersticks and cover with sliding scale coverage. Hold metformin. IV hydration. We'll follow renal function post hydration. Regarding his symptoms of weight loss, anemia, patient would need to have outpatient colonoscopy. Patient however insists his weight loss is due to severe depression from losing his . Resume home meds apart from metformin. DVT prophylaxis with Lovenox. Discussed Condition With patient, ER NIMO Physician Certification 2 Midnight Certification Type: Admission for Inpatient Services Order for Inpatient Services The services are ordered in accordance with Medicare regulations or non- Medicare payer requirements, as applicable. In the case of services not specified as inpatient-only, they are appropriately provided as inpatient services in accordance with the 2-midnight benchmark. Estimated LOS (days): 3 days is the estimated time the patient will need to remain in the hospital, assuming treatment plan goals are met and no additional complications. Post-Hospital Plan: Home Edy Nava MD May 19, 2017 23:18
[2017-05-19] MEDS ORDERED: RESP: ALBUTEROL 2.5 MG/IPRATROPIUM 0.5 MG NEB (PRN) NEB (23:45)
[2017-05-20] VITALS (15 sets, daily range): BP systolic 79–125; BP diastolic 42–65; PULSE 46–68; RESP 15–22; TEMP 97.2–99.1; O2SAT 92–98
[2017-05-20] MEDS ORDERED: GABAPENTIN 300 MG CAP PO ONE
[2017-05-20] MEDS ORDERED: SODIUM CHLOR 0.9% 1000 ML INJ 1,000 ML IV ONE ×2 (02:30→06:30)
[2017-05-20] MEDS: RESP: ALBUTEROL 2.5 MG/IPRATROPIUM 0.5 MG NEB (SCH) NEB ×2 (02:33→10:23)
[2017-05-20] MEDS: PIPERACIL-TAZO 4.5 GM PREMIX 100 ML IV SCH ×4 (04:14→21:52)
[2017-05-20 04:32] LABS: AUTOMATED NEUTROPHIL # 5.5 TH/MM3 (1.8-7.7); BASOPHIL % 0.2 % (0.0-2.0); EOSINOPHIL # 0.1 TH/MM3 (0-0.4); EOSINOPHIL % 1.6 % (0.0-4.0); HEMATOCRIT 26.4 % (39.0-51.0); HEMOGLOBIN 8.9 GM/DL (13.0-17.0); LYMPH % 27.7 % (9.0-44.0); LYMPHOCYTE # 2.5 TH/MM3 (1.0-4.8); MEAN CELL VOLUME 85.5 FL (80.0-100.0); MEAN CORPUSCULAR HEMOGLOBIN 28.9 PG (27.0-34.0); MEAN CORPUSCULAR HGB CONC 33.8 % (32.0-36.0); MEAN PLATELET VOLUME 7.7 FL (7.0-11.0); MONO % 10.8 % (0.0-8.0); NEUT % 59.7 % (16.0-70.0); PLATELET COUNT 184 TH/MM3 (150-450); RED BLOOD COUNT 3.09 MIL/MM3 (4.50-5.90); RED CELL DISTRIBUTION WIDTH 15.4 % (11.6-17.2); WHITE BLOOD COUNT 9.2 TH/MM3 (4.0-11.0)
[2017-05-20 04:57] LABS: BICARBONATE 25.8 MEQ/L (21.0-32.0); CALCIUM 7.9 MG/DL (8.5-10.1); CREATININE 1.65 MG/DL (0.60-1.30)
[2017-05-20] MEDS: PANTOPRAZOLE INJ 80 MG in SODIUM CHLORIDE 0.9% INJ 100 ML IV SCH ×2 (06:49→17:55)
[2017-05-20] MEDS ORDERED: PANTOPRAZOLE INJ 80 MG in SODIUM CHLORIDE 0.9% INJ 35 ML IV ONE (07:20)
[2017-05-20] MEDS: INSULIN ASPART SUPPLEMENTAL SCALE SQ SCH ×4 (08:00→21:00)
[2017-05-20] MEDS: DEXT 5%-NACL 0.9% 1000 ML INJ 1,000 ML IV SCH (08:00)
[2017-05-20] MEDS ORDERED: LISINOPRIL 20 MG TAB PO SCH (09:00)
[2017-05-20] MEDS ORDERED: amLODIPine BESYLATE 5 MG TAB PO SCH (09:00)
[2017-05-20] MEDS ORDERED: GABAPENTIN 300 MG CAP PO SCH (09:00)
--- NOTE | 2017-05-20 09:02 | PD.CONS ---
HPI History of Present Illness This is a 56 year old male with DM, hep c tx naive, cirrhosis, who was sent by his ball holder for a left foot infection. GI has been consulted for weight loss and GIB. Denies any blood in stool, tarry stool, n/v, abd pain, diarrhea. he has had less frequent BM in last year. He has lost 90 lbs in the last 2 years, since his . He has been eating less. He became homeless after his . He says 6 months ago he had some episodes of copious rectal bleeding and blood on wipe after BMs. It resolved. He had colonoscopy some years but cannot recall when. He thinks he had it here but I do not see a record of this in the EMR. He can provide no further details. He is not on blood thinners. Re his hep c he says at one time he sought tx but was told his viral load was not high enough. 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 Past Surgical History left thigh glass removal hemorrhoidectomy left toe amputation tonsilectomy left inguinal hernia abdominal sx for nail injuries from work (Evelyn De Jesus) Coded Allergies: codeine (Verified Adverse Reaction, Severe, NAUSEA, 05/12/17) Family History dad- heart problems, asthma father's mother- had cancer, not sure which kind, maybe liver - but related to etoh Social History quit smoking about a month- used to smoke about 0.5-1 ppd quit etoh about 10-11 yrs ago; used to drink heavily quit drugs about 10-11 yrs ago as well, used to use iv heroine and everything admits cocaine use (Evelyn De Jesus) Review of Systems Constitutional: DENIES: Fever Endocrine: DENIES: Polydipsia Eyes: DENIES: Blurred vision Ears, nose, mouth, throat: DENIES: Hearing loss Respiratory: DENIES: Cough Cardiovascular: DENIES: Chest pain Gastrointestinal: COMPLAINS OF: Anorexia, DENIES: Abdominal pain, Black stools , Bloody stools, Nausea, Vomiting Genitourinary: DENIES: Hematuria Musculoskeletal: DENIES: Muscle aches Integumentary: DENIES: Jaundice Hematologic/lymphatic: COMPLAINS OF: Bruising Immunologic/allergic: DENIES: Eczema Neurologic: COMPLAINS OF: Abnormal gait Psychiatric: COMPLAINS OF: Depression, DENIES: Confusion (Evelyn De Jesus ) GI Exam Vitals I&O Vital Signs Date Time Temp Pulse Resp B/P (MAP) Pulse Ox O2 Delivery O2 Flow Rate FiO2 05/20/17 06:02 98.9 55 18 83/48 (60) 97 Room Air 80/42 (55) 05/20/17 03:03 61 16 125/50 (75) 96 Room Air 05/20/17 02:10 99.1 64 18 82/49 (60) 96 Room Air 79/43 (55) 05/20/17 00:16 67 18 112/53 (72) 95 Room Air 05/19/17 22:10 70 18 126/72 (90) 97 Room Air 05/19/17 20:46 64 18 146/64 (91) 99 Room Air 05/19/17 18:44 97.5 69 18 101/66 (78) 92 I/O 05/19/17 05/19/17 05/19/17 05/20/17 05/20/17 05/20/17 07:00 15:00 23:00 07:00 15:00 23:00 Intake Total 300 ml 1100 ml Balance 300 ml 1100 ml Intake IV Total 300 ml 1100 ml Imaging Last Impressions Chest X-Ray 05/19/172039 Signed Impressions: Service Date/Time: Friday, May 19, 2017 21:21 - CONCLUSION: No acute disease. Mk Mtz MD Foot X-Ray 05/19/17 0000 Signed Impressions: Service Date/Time: Friday, May 19, 2017 21:23 - CONCLUSION: 1. Amputation of the left great toe. No bony destructive changes. Mk Mtz MD Laboratory Test 05/19/17 21:58 05/20/17 02:30 05/20/17 04:12 White Blood Count 8.9 TH/MM3 9.2 TH/MM3 Red Blood Count 3.39 MIL/MM3 3.09 MIL/MM3 Hemoglobin 9.7 GM/DL 8.9 GM/DL Hematocrit 28.9 % 26.4 % Mean Corpuscular Volume 85.4 FL 85.5 FL Mean Corpuscular Hemoglobin 28.6 PG 28.9 PG Mean Corpuscular Hemoglobin Concent 33.5 % 33.8 % Red Cell Distribution Width 15.3 % 15.4 % Platelet Count 210 TH/MM3 184 TH/MM3 Mean Platelet Volume 7.5 FL 7.7 FL Neutrophils (%) (Auto) 53.8 % 59.7 % Lymphocytes (%) (Auto) 33.0 % 27.7 % Monocytes (%) (Auto) 11.3 % 10.8 % Eosinophils (%) (Auto) 1.5 % 1.6 % Basophils (%) (Auto) 0.4 % 0.2 % Neutrophils # (Auto) 4.8 TH/MM3 5.5 TH/MM3 Lymphocytes # (Auto) 2.9 TH/MM3 2.5 TH/MM3 Monocytes # (Auto) 1.0 TH/MM3 1.0 TH/MM3 Eosinophils # (Auto) 0.1 TH/MM3 0.1 TH/MM3 Basophils # (Auto) 0.0 TH/MM3 0.0 TH/MM3 CBC Comment DIFF FINAL DIFF FINAL Differential Comment Prothrombin Time 11.3 SEC Prothromb Time International Ratio 1.1 RATIO Activated Partial Thromboplast Time 30.5 SEC Blood Urea Nitrogen 26 MG/DL 28 MG/DL Creatinine 1.57 MG/DL 1.65 MG/DL Random Glucose 65 MG/DL 97 MG/DL Total Protein 7.3 GM/DL Albumin 2.9 GM/DL Calcium Level 8.1 MG/DL 7.9 MG/DL Alkaline Phosphatase 79 U/L Aspartate Amino Transf (AST/SGOT) 18 U/L Alanine Aminotransferase (ALT/SGPT) 16 U/L Total Bilirubin 0.8 MG/DL Sodium Level 133 MEQ/L 136 MEQ/L Potassium Level 3.8 MEQ/L 3.7 MEQ/L Chloride Level 99 MEQ/L 102 MEQ/L Carbon Dioxide Level 26.1 MEQ/L 25.8 MEQ/L Anion Gap 8 MEQ/L 8 MEQ/L Estimat Glomerular Filtration Rate 46 ML/MIN 43 ML/MIN C-Reactive Protein 9.30 MG/DL Lactic Acid Level 0.6 mmol/L Date/Time Source Procedure Growth Status 05/19/17 20:54 Blood Peripheral Aerobic Blood Culture Pending Received 05/19/17 20:54 Blood Peripheral Anaerobic Blood Culture Pending Received 05/19/17 20:54 Wound Foot Gram Stain Pending Received 05/19/17 20:54 Wound Foot Wound Culture Pending Received Physical Examination HEENT: PERRL; normocephalic; atraumatic; no jaundice. CHEST: CTA CARDIAC: RRR ABDOMEN: Soft, nondistended, nontender; no hepatosplenomegaly; bowel sounds are present in all four quadrants. EXTREMITIES: left 1st toe amputation approximated with stitches, some purulent appearing drainage SKIN: Normal; no rash; no jaundice. SEX THERAPIST: No focal deficits; alert and oriented times three. (Evelyn De Jesus) Assessment and Plan Plan ASSESSMENT - anemia - hgb 9.7 on admission now 8.9 normocytic. multifactorial. admits episode rectal bleeding 6 months ago but denies any bleeding currently. Last colonoscopy some years ago, cannot recall details. - weight loss - likely r/t depression since his . - hx hep c, cirrhosis - tx naive, told his viral load too low for tx. PLAN - EGD and colonscopy tomorrow - obtain consent - can have breakfast - clear liquids starting at lunch - NPO after midnight - GoLYtely prep - monitor labs - hcv quant and genotype - further recs to follow - notify GI of active bleeding pt seen by myself and Dr chin and this note is on her behalf (Evelyn De Jesus) Physician Comments seen, examined agree with above (Leydi Chin MD) Evelyn De Jesus May 20, 2017 09:02 Leydi Chin MD May 20, 2017 16:07
[2017-05-20 11:11] LABS: % SATURATION IRON PROFILE 8.5 % (20-50); IRON (FE) 18 MCG/DL (65-175); TOTAL IRON BINDING CAPACITY 213 MCG/DL (250-450)
[2017-05-20 11:13] LABS: FERRITIN 344 NG/ML (26-388)
[2017-05-20] MEDS: VANCOMYCIN 1,000 MG/NS 250 ML IV SCH ×2 (12:01)
[2017-05-20] MEDS: SODIUM CHLORIDE 0.9% FLUSH 10 ML FLUSH IV FLUSH SCH ×2 (12:06→21:00)
--- NOTE | 2017-05-20 12:25 | HHI.PR ---
Subjective Remarks Follow-up diabetic foot infection. States he is doing okay. He has been running low blood pressure currently receiving first unit of packed RBC. Denies weakness, dizziness, chest pain and shortness of breath. Denies gross bleeding. Discussed with nursing who confirmed methadone dose. Objective Vitals Vital Signs Date Time Temp Pulse Resp B/P (MAP) Pulse Ox O2 Delivery O2 Flow Rate FiO2 05/20/17 11:24 98.4 59 20 89/52 94 05/20/17 11:22 98.4 64 20 89/52 (64) 92 Room Air 05/20/17 09:27 98.2 54 15 102/62 92 05/20/17 08:01 53 18 88/54 (65) 94 05/20/17 08:00 53 18 82/47 (59) 94 05/20/17 06:02 98.9 55 18 83/48 (60) 97 Room Air 80/42 (55) 05/20/17 03:03 61 16 125/50 (75) 96 Room Air 05/20/17 02:10 99.1 64 18 82/49 (60) 96 Room Air 79/43 (55) 05/20/17 00:16 67 18 112/53 (72) 95 Room Air 05/19/17 22:10 70 18 126/72 (90) 97 Room Air 05/19/17 20:46 64 18 146/64 (91) 99 Room Air 05/19/17 18:44 97.5 69 18 101/66 (78) 92 I/O 05/19/17 05/19/17 05/19/17 05/20/17 05/20/17 05/20/17 07:00 15:00 23:00 07:00 15:00 23:00 Intake Total 300 ml 1100 ml 650 ml Balance 300 ml 1100 ml 650 ml Intake IV Total 300 ml 1100 ml 200 ml Packed Cells 400 ml Blood Product IV Normal Saline Flush 50 ml Result Diagram: 05/20/1741105/20/17411 Imaging Last Impressions Chest X-Ray 05/19/172039 Signed Impressions: Service Date/Time: Friday, May 19, 2017 21:21 - CONCLUSION: No acute disease. Mk Mtz MD Foot X-Ray 05/19/17 0000 Signed Impressions: Service Date/Time: Friday, May 19, 2017 21:23 - CONCLUSION: 1. Amputation of the left great toe. No bony destructive changes. Mk Mtz MD Objective Remarks GENERAL: This is a well-nourished, well-developed patient, in no apparent distress. SKIN: No rashes, ecchymoses or lesions. Cool and dry. CARDIOVASCULAR: Regular rate and rhythm without murmurs, gallops, or rubs. RESPIRATORY: Clear to auscultation. Breath sounds equal bilaterally. No wheezes , rales, or rhonchi. GASTROINTESTINAL: Abdomen soft, non-tender, nondistended.. No guarding. MUSCULOSKELETAL: Extremities without clubbing, cyanosis, or edema. . No calf tenderness. Left big toe amputated. Left foot medial aspect near bunion area with erythema, swelling, purulent discharge in between sutures NEUROLOGICAL: Awake and alert. Motor and sensory grossly within normal limits. Normal speech. A/P Problem List: (1) Wound infection after surgery ICD Code: T81.4XXA - Infection following a procedure, initial encounter Status: Acute (2) Cellulitis ICD Code: L03.90 - Cellulitis, unspecified Status: Acute Assessment and Plan Diabetic foot infection. Wound care, pain management with methadone and IV morphine, antibiotic with vancomycin and Zosyn and podiatry consult. Currently n.p.o. follow up cultures Anemia. Acute on chronic. Obtain iron studies and Hemoccult stools. GI consulted for endoscopy Acute renal failure secondary to dehydration. Obtain CK. Continue IV hydration Hypotension with history of hypertension. This is likely secondary to infection and anemia. Currently receiving first of the 2 units of packed RBC. IV fluids. Hold BP meds Weight loss significant in the past 2 years. Partly secondary to depression from 's and being homeless. Check TSH and consider psychiatry consult Diabetes. Monitor fingersticks with sliding scale coverage. Hold metformin for now History of CHF. However reports this has resolved since lost significant weight. CHF education, I/O and monitor weight Multiple medical conditions of COPD, Hepatitis C and Liver cirrhosis DVT prophylaxis with SCD and early ambulation. Hold pharmacological prophylaxis for now secondary to anemia and pending podiatry evaluation Problem Qualifiers (1) Wound infection after surgery: Qualified Codes: T81.4XXA - Infection following a procedure, initial encounter (2) Cellulitis: Qualified Codes: L03.116 - Cellulitis of left lower limb Abando,Abran MD May 20, 2017 12:25
[2017-05-20] MEDS ORDERED: PEG (High)/E-LYTE SOLN 4000 ML BTL PO ONE (16:15)
[2017-05-20] MEDS: METHADONE HCL 10 MG TAB PO SCH (16:21)
[2017-05-20] MEDS ORDERED: CHLORHEXIDINE GLUCONATE 2 % 1 PACK (2 CLOTHS) TOPICAL PRN (19:00)
[2017-05-20] MEDS ORDERED: SODIUM CHLORID 0.9% 500 ML IV PRN (19:00)
[2017-05-20] MEDS ORDERED: POVIDONE IODINE 5% (ANTISEPSIS KIT) 4 APPLICATIONS EACH NARE PRN (19:00)
[2017-05-20] MEDS ORDERED: LACTATED RINGER'S 1000 ML IV PRN (19:00)
--- NOTE | 2017-05-20 21:06 | PD.CONS ---
History of Present Illness Consult Requested By Primary Care Physician No Primary Care Physician Diagnoses: Past Family Social History Allergies: Coded Allergies: codeine (Verified Adverse Reaction, Severe, NAUSEA, 05/12/17) Physical Exam Vital Signs Vital Signs Date Time Temp Pulse Resp B/P (MAP) Pulse Ox O2 Delivery O2 Flow Rate FiO2 05/20/17 16:00 68 05/20/17 15:00 98.1 67 22 114/60 (78) 98 05/20/17 12:46 98.7 60 18 120/54 (76) 95 Room Air 05/20/17 12:32 98.4 53 20 120/53 05/20/17 11:24 98.4 59 20 89/52 94 05/20/17 11:22 98.4 64 20 89/52 (64) 92 Room Air 05/20/17 09:27 98.2 54 15 102/62 92 05/20/17 08:01 53 18 88/54 (65) 94 05/20/17 08:00 53 18 82/47 (59) 94 05/20/17 06:02 98.9 55 18 83/48 (60) 97 Room Air 80/42 (55) 05/20/17 03:03 61 16 125/50 (75) 96 Room Air 05/20/17 02:10 99.1 64 18 82/49 (60) 96 Room Air 79/43 (55) 05/20/17 00:16 67 18 112/53 (72) 95 Room Air 05/19/17 22:10 70 18 126/72 (90) 97 Room Air Physical Exam GENERAL: This is a well-nourished, well-developed patient, in no apparent distress. SKIN: No rashes, ecchymoses or lesions. Cool and dry. HEAD: Atraumatic. Normocephalic. No temporal or scalp tenderness. EYES: Pupils equal round and reactive. Extraocular motions intact. No scleral icterus. No injection or drainage. ENT: Nose without bleeding, purulent drainage or septal hematoma. Throat without erythema, tonsillar hypertrophy or exudate. Uvula midline. Airway patent. NECK: Trachea midline. No JVD or lymphadenopathy. Supple, nontender, no meningeal signs. CARDIOVASCULAR: Regular rate and rhythm without murmurs, gallops, or rubs. RESPIRATORY: Clear to auscultation. Breath sounds equal bilaterally. No wheezes , rales, or rhonchi. GASTROINTESTINAL: Abdomen soft, non-tender, nondistended. No hepato-splenomegaly , or palpable masses. No guarding. MUSCULOSKELETAL: Extremities without clubbing, cyanosis, or edema. No joint tenderness, effusion, or edema noted. No calf tenderness. Negative Homans sign bilaterally. NEUROLOGICAL: Awake and alert. Cranial nerves II through XII intact. Motor and sensory grossly within normal limits. Five out of 5 muscle strength in all muscle groups. Normal speech. Laboratory Laboratory Tests Test 05/19/17 21:58 05/20/17 02:30 05/20/17 04:12 White Blood Count 8.9 9.2 Red Blood Count 3.39 3.09 Hemoglobin 9.7 8.9 Hematocrit 28.9 26.4 Mean Corpuscular Volume 85.4 85.5 Mean Corpuscular Hemoglobin 28.6 28.9 Mean Corpuscular Hemoglobin Concent 33.5 33.8 Red Cell Distribution Width 15.3 15.4 Platelet Count 210 184 Mean Platelet Volume 7.5 7.7 Neutrophils (%) (Auto) 53.8 59.7 Lymphocytes (%) (Auto) 33.0 27.7 Monocytes (%) (Auto) 11.3 10.8 Eosinophils (%) (Auto) 1.5 1.6 Basophils (%) (Auto) 0.4 0.2 Neutrophils # (Auto) 4.8 5.5 Lymphocytes # (Auto) 2.9 2.5 Monocytes # (Auto) 1.0 1.0 Eosinophils # (Auto) 0.1 0.1 Basophils # (Auto) 0.0 0.0 CBC Comment DIFF FINAL DIFF FINAL Differential Comment Prothrombin Time 11.3 Prothromb Time International Ratio 1.1 Activated Partial Thromboplast Time 30.5 Blood Urea Nitrogen 26 28 Creatinine 1.57 1.65 Random Glucose 65 97 Total Protein 7.3 Albumin 2.9 Calcium Level 8.1 7.9 Alkaline Phosphatase 79 Aspartate Amino Transf (AST/SGOT) 18 Alanine Aminotransferase (ALT/SGPT) 16 Total Bilirubin 0.8 Sodium Level 133 136 Potassium Level 3.8 3.7 Chloride Level 99 102 Carbon Dioxide Level 26.1 25.8 Anion Gap 8 8 Estimat Glomerular Filtration Rate 46 43 C-Reactive Protein 9.30 Lactic Acid Level 0.6 Iron Level 18 Total Iron Binding Capacity 213 Percent Iron Saturation 8.5 Ferritin 344 Total Creatine Kinase 155 Thyroid Stimulating Hormone 3rd Gen 0.189 Date/Time Source Procedure Growth Status 05/19/17 20:54 Blood Peripheral Aerobic Blood Culture - Preliminary NO GROWTH IN 1 DAY Resulted 05/19/17 20:54 Blood Peripheral Anaerobic Blood Culture - Preliminary NO GROWTH IN 1 DAY Resulted 05/19/17 20:54 Wound Foot Gram Stain - Final Resulted 05/19/17 20:54 Wound Foot Wound Culture - Preliminary IMMATURE GROWTH - REINCUBATE Resulted Result Diagram: 05/20/17 0412 05/20/17 0412 Rhoda David DPM May 20, 2017 21:06
--- NOTE | 2017-05-20 21:10 | PD.CONS ---
History of Present Illness Service Foot and ankle surgery/podiatry Consult Requested By Reason for Consult Left foot infection Primary Care Physician No Primary Care Physician Diagnoses: History of Present Illness Podiatry consulted for this 56-year-old male with past medical history of hypertension, diabetes, CHF, depression, COPD, hepatitis C, liver cirrhosis, for left foot infection. Patient is status post transmetatarsal amputation. He was sent from Dr. Gomez's office since patient failed oral antibiotics there is increased erythema and edema noted with purulent discharge from the medial aspect of transmetatarsal amputation site. Patient denies nausea vomiting fevers or chills. Patient was hard to arouse when first seen as he had just received his methadone. Review of Systems Constitutional: DENIES: Fever Endocrine: DENIES: Heat/cold intolerance Eyes: DENIES: Blurred vision Respiratory: DENIES: Cough, Shortness of breath Cardiovascular: COMPLAINS OF: Lower Extremity Edema, DENIES: Chest pain, Syncope Gastrointestinal: DENIES: Abdominal pain Musculoskeletal: DENIES: Joint pain Neurologic: COMPLAINS OF: Abnormal gait Psychiatric: DENIES: Anxiety, Confusion Past Family Social History Allergies: Coded Allergies: codeine (Verified Adverse Reaction, Severe, NAUSEA, 05/12/17) Past Medical History As dictated in HPI Active Ordered Medications Current Medications Medications (Trade) Dose Ordered Sig/Nithin Route Start Time Stop Time Status Last Admin (NS Flush) 2 ml UNSCH PRN IV FLUSH 05/19/17 22:45 (NS Flush) 2 ml BID IV FLUSH 05/20/17 09:00 05/20/17 12:06 (Narcan Inj) 0.4 mg UNSCH PRN IV PUSH 05/19/17 22:45 Pharmacy Profile Note 0 ml @ 0 mls/hr UNSCH OTHER 05/19/17 22:45 Piperacillin Sod/ Tazobactam Sod 100 ml @ 200 mls/hr Q6H IV 05/20/17 04:00 05/20/17 17:54 (D50w (Vial) Inj) 50 ml UNSCH PRN IV PUSH 05/19/17 22:45 (Glucagon Inj) 1 mg UNSCH PRN OTHER 05/19/17 22:45 (NovoLOG SUPPLEMENTAL SCALE) 1 ACHS SLIDING SCALE SQ 05/20/17 08:00 05/20/17 13:20 (Morphine Inj) 2 mg Q3H PRN IV PUSH 05/19/17 22:45 (Duoneb Neb) 1 ampule Q6HR NEB NEB 05/20/17 04:00 05/20/17 10:23 (Duoneb Neb) 1 ampule Q2HR NEB PRN NEB 05/19/17 23:45 Pantoprazole Sodium 80 mg/ Sodium Chloride 100 ml @ 10 mls/hr Q10H IV 05/20/17 07:20 05/20/17 17:55 Dextrose/Sodium Chloride 1,000 ml @ 42 mls/hr [id number] IV 05/20/17 06:30 05/20/17 08:00 Vancomycin HCl 1000 mg/Sodium Chloride 250 ml @ 250 mls/hr Q24H IV 05/20/17 11:00 05/20/17 12:01 Miscellaneous Information SPECIFIC LAB TO BE DRAWN:VANCO TROUGH DATE TO... ONCE ONCE .XX 05/22/17 10:45 05/22/17 10:46 (Dolophine) 220 mg DAILY PO 05/20/17 13:15 05/20/17 16:21 Lactated Ringer's 1,000 ml @ 30 mls/hr Q24H PRN IV 05/20/17 19:00 05/23/17 18:59 Sodium Chloride 500 ml @ 30 mls/hr [id number] PRN IV 05/20/17 19:00 05/23/17 18:59 (Betadine 5% Antisepsis Kit) 1 applic TELECOM SPECIALIST PRN EACH NARE 05/20/17 19:00 05/23/17 18:59 (Chlorhexidine 2% Cloth) 3 pack TELECOM SPECIALIST PRN TOPICAL 05/20/17 19:00 05/23/17 18:59 Physical Exam Vital Signs Vital Signs Date Time Temp Pulse Resp B/P (MAP) Pulse Ox O2 Delivery O2 Flow Rate FiO2 05/20/17 16:00 68 05/20/17 15:00 98.1 67 22 114/60 (78) 98 05/20/17 12:46 98.7 60 18 120/54 (76) 95 Room Air 05/20/17 12:32 98.4 53 20 120/53 05/20/17 11:24 98.4 59 20 89/52 94 05/20/17 11:22 98.4 64 20 89/52 (64) 92 Room Air 05/20/17 09:27 98.2 54 15 102/62 92 05/20/17 08:01 53 18 88/54 (65) 94 05/20/17 08:00 53 18 82/47 (59) 94 05/20/17 06:02 98.9 55 18 83/48 (60) 97 Room Air 80/42 (55) 05/20/17 03:03 61 16 125/50 (75) 96 Room Air 05/20/17 02:10 99.1 64 18 82/49 (60) 96 Room Air 79/43 (55) 05/20/17 00:16 67 18 112/53 (72) 95 Room Air 05/19/17 22:10 70 18 126/72 (90) 97 Room Air Physical Exam GENERAL: This is a well-nourished, well-developed patient, in no apparent distress. SKIN: Left medial wound noted with fibrotic/purulent discharge; left lateral blister noted with serous drainage HEAD: Atraumatic. EYES: Pupils equal round and reactive. ENT: Airway patent. NECK: Trachea midline. RESPIRATORY: Nonlabored breathing. MUSCULOSKELETAL:. Negative Homans sign bilaterally. NEUROLOGICAL: Awake and alert. Normal speech. Lower extremity physical exam: Vascular: Dorsalis pedis 1 out of 4, posterior tibial nonpalpable. Capillary refill time within normal limits to digits 5 bilateral foot. Edema present left foot and ankle Neuro: Gross sensation intact to bilateral lower extremity. Pinpoint sensation decreased. No hyperalgesia noted to bilateral lower extremity Dermatology: Left medial foot wound noted with fibro-purulent drainage less than 1 cc total on compression wound measuring no bigger than 1 cm x 1 cm with no probe to bone, increased edema and erythema noted to site. Left lateral distal blister noted with associated deep tissue injury and serous drainage, increased erythema and edema noted to site. Musculoskeletal: Left transmetatarsal irritation noted. Right severe bunion noted. No tenderness to palpation. Laboratory Laboratory Tests Test 05/19/17 21:58 05/20/17 02:30 05/20/17 04:12 White Blood Count 8.9 9.2 Red Blood Count 3.39 3.09 Hemoglobin 9.7 8.9 Hematocrit 28.9 26.4 Mean Corpuscular Volume 85.4 85.5 Mean Corpuscular Hemoglobin 28.6 28.9 Mean Corpuscular Hemoglobin Concent 33.5 33.8 Red Cell Distribution Width 15.3 15.4 Platelet Count 210 184 Mean Platelet Volume 7.5 7.7 Neutrophils (%) (Auto) 53.8 59.7 Lymphocytes (%) (Auto) 33.0 27.7 Monocytes (%) (Auto) 11.3 10.8 Eosinophils (%) (Auto) 1.5 1.6 Basophils (%) (Auto) 0.4 0.2 Neutrophils # (Auto) 4.8 5.5 Lymphocytes # (Auto) 2.9 2.5 Monocytes # (Auto) 1.0 1.0 Eosinophils # (Auto) 0.1 0.1 Basophils # (Auto) 0.0 0.0 CBC Comment DIFF FINAL DIFF FINAL Differential Comment Prothrombin Time 11.3 Prothromb Time International Ratio 1.1 Activated Partial Thromboplast Time 30.5 Blood Urea Nitrogen 26 28 Creatinine 1.57 1.65 Random Glucose 65 97 Total Protein 7.3 Albumin 2.9 Calcium Level 8.1 7.9 Alkaline Phosphatase 79 Aspartate Amino Transf (AST/SGOT) 18 Alanine Aminotransferase (ALT/SGPT) 16 Total Bilirubin 0.8 Sodium Level 133 136 Potassium Level 3.8 3.7 Chloride Level 99 102 Carbon Dioxide Level 26.1 25.8 Anion Gap 8 8 Estimat Glomerular Filtration Rate 46 43 C-Reactive Protein 9.30 Lactic Acid Level 0.6 Iron Level 18 Total Iron Binding Capacity 213 Percent Iron Saturation 8.5 Ferritin 344 Total Creatine Kinase 155 Thyroid Stimulating Hormone 3rd Gen 0.189 Date/Time Source Procedure Growth Status 05/19/17 20:54 Blood Peripheral Aerobic Blood Culture - Preliminary NO GROWTH IN 1 DAY Resulted 05/19/17 20:54 Blood Peripheral Anaerobic Blood Culture - Preliminary NO GROWTH IN 1 DAY Resulted 05/19/17 20:54 Wound Foot Gram Stain - Final Resulted 05/19/17 20:54 Wound Foot Wound Culture - Preliminary IMMATURE GROWTH - REINCUBATE Resulted Result Diagram: 05/20/1741105/20/17411 Imaging Last Impressions Chest X-Ray 05/19/172039 Signed Impressions: Service Date/Time: Friday, May 19, 2017 21:21 - CONCLUSION: No acute disease. Mk Mtz MD Foot X-Ray 05/19/17 0000 Signed Impressions: Service Date/Time: Friday, May 19, 2017 21:23 - CONCLUSION: 1. Amputation of the left great toe. No bony destructive changes. Mk Mtz MD Assessment and Plan Assessment and Plan 56-year-old male with left foot infection Patient examined evaluated with all questions answered MRI left foot ordered Sutures removed from medial incision site Left foot dressed with dry sterile dressing Wound care orders to be placed Nursing to change dressing daily to consist of Betadine to medial and lateral wounds Will await MRI results Continue IV antibiotics Rhoda David DPM May 20, 2017 21:09
[2017-05-21] VITALS (8 sets, daily range): BP systolic 93–150; BP diastolic 51–75; PULSE 51–106; RESP 17–19; TEMP 98–99.6; O2SAT 95–98
[2017-05-21] MEDS ORDERED: GABAPENTIN 300 MG CAP PO ONE (00:15)
[2017-05-21] MEDS: RESP: ALBUTEROL 2.5 MG/IPRATROPIUM 0.5 MG NEB (SCH) NEB ×4 (03:11→21:10)
[2017-05-21] MEDS: PANTOPRAZOLE INJ 80 MG in SODIUM CHLORIDE 0.9% INJ 100 ML IV SCH ×2 (03:43→17:07)
[2017-05-21] MEDS: PIPERACIL-TAZO 4.5 GM PREMIX 100 ML IV SCH ×3 (03:46→16:49)
[2017-05-21] MEDS: DEXT 5%-NACL 0.9% 1000 ML INJ 1,000 ML IV SCH (06:17)
[2017-05-21] MEDS: INSULIN ASPART SUPPLEMENTAL SCALE SQ SCH ×4 (08:00→20:33)
[2017-05-21] MEDS: SODIUM CHLORIDE 0.9% FLUSH 10 ML FLUSH IV FLUSH SCH ×2 (09:00→20:33)
[2017-05-21 09:12] LABS: AUTOMATED NEUTROPHIL # 3.6 TH/MM3 (1.8-7.7); BASOPHIL % 0.4 % (0.0-2.0); EOSINOPHIL # 0.2 TH/MM3 (0-0.4); EOSINOPHIL % 3.4 % (0.0-4.0); HEMATOCRIT 33.3 % (39.0-51.0); HEMOGLOBIN 11.2 GM/DL (13.0-17.0); LYMPH % 30.6 % (9.0-44.0); LYMPHOCYTE # 1.9 TH/MM3 (1.0-4.8); MEAN CELL VOLUME 85.9 FL (80.0-100.0); MEAN CORPUSCULAR HEMOGLOBIN 28.8 PG (27.0-34.0); MEAN CORPUSCULAR HGB CONC 33.5 % (32.0-36.0); MEAN PLATELET VOLUME 8.2 FL (7.0-11.0); MONOCYTE # 0.5 TH/MM3 (0-0.9); NEUT % 57.6 % (16.0-70.0); PLATELET COUNT 138 TH/MM3 (150-450); RED BLOOD COUNT 3.87 MIL/MM3 (4.50-5.90); RED CELL DISTRIBUTION WIDTH 15.4 % (11.6-17.2); WHITE BLOOD COUNT 6.2 TH/MM3 (4.0-11.0)
[2017-05-21 09:55] LABS: BICARBONATE 26.6 MEQ/L (21.0-32.0); CALCIUM 8.4 MG/DL (8.5-10.1); CREATININE 1.19 MG/DL (0.60-1.30); MAGNESIUM 1.8 MG/DL (1.5-2.5)
[2017-05-21] MEDS: VANCOMYCIN 1,000 MG/NS 250 ML IV SCH ×2 (11:00)
[2017-05-21] MEDS ORDERED: POVIDONE IODINE 5% (ANTISEPSIS KIT) 4 APPLICATIONS EACH NARE PRN (11:15)
[2017-05-21] MEDS ORDERED: INSULIN HUMAN REGULAR 1,000 UNITS/10 ML VIAL SQ PRN (11:15)
[2017-05-21] MEDS ORDERED: LACTATED RINGER'S 1000 ML IV PRN (11:15)
[2017-05-21] MEDS ORDERED: METOPROLOL TARTRATE 25 MG TAB PO PRN (11:15)
[2017-05-21] MEDS ORDERED: CHLORHEXIDINE GLUCONATE 2 % 1 PACK (2 CLOTHS) TOPICAL PRN (11:15)
[2017-05-21] MEDS ORDERED: SODIUM CHLORID 0.9% 500 ML IV PRN (11:15)
--- NOTE | 2017-05-21 11:56 | GIPROC ---
[facility] [address] [facility]. [facility], [address] COLONOSCOPY PROCEDURE REPORT EXAM DATE: 05/21/2017 PATIENT NAME: Abdi Alva MR #: [id number] BIRTHDATE: 1960 ENDOSCOPIST: Leydi Zepeda MD ORDER #: [id number] DIRECTOR CARD: Alli Puckett and Inna Acevedo STATUS: inpatient INDICATIONS: The patient is a 56 yr old male here for a colonoscopy due to anemia, gi bleeding, abdominal pain PROCEDURE PERFORMED: Colonoscopy, diagnostic MEDICATIONS: None and Per Anesthesia. PREP QUALITY: fair PREP TYPE:Other: ESTIMATED BLOOD LOSS: None CONSENT: The patient understands the risks and benefits of the procedure and understands that these risks include, but are not limited to: sedation, allergic reaction, infection, perforation and/or bleeding. Alternative means of evaluation and treatment include, among others: physical exam, x-rays, and/or surgical intervention. The patient elects to proceed with this endoscopic procedure. medical equipment was checked for proper function. Hand hygiene and appropriate measures for infection prevention was taken. After the risks, benefits and alternatives of the procedure were thoroughly explained, Informed consent was verified, confirmed and timeout was successfully executed by the treatment team. A digital exam revealed hemorrhoids The Pentax [id number] endoscope was introduced through the anus and advanced to the cecum, which was identified by both the appendix and ileocecal valve. The instrument was then slowly withdrawn as the colon was fully examined. COLON FINDINGS: Internal hemorrhoids diverticulosis sigmoid,descending. Retroflexed views revealed internal hemorrhoids and Retroflexed views revealed small internal hemorrhoids The scope was then completely withdrawn from the patient and the procedure terminated. PROCEDURE WITHDRAWAL TIME:6minutes ADVERSE EVENTS: There were no complications. IMPRESSIONS: 1. Internal hemorrhoids diverticulosis sigmoid,descending 2. Retroflexed views revealed internal hemorrhoids 3. Retroflexed views revealed small internal hemorrhoids 4. Revealed hemorrhoids RECOMMENDATIONS: 1. Benefiber 2 tsp daily 2. Probiotics from any [employer] or health food store 3. Yearly rectal exams RECALL: Return 5 years Colonoscopy Leydi Zepeda MD eSigned: Leydi Zepeda MD 05/21/2017 11:56 AM cc:
[2017-05-21] MEDS ORDERED: PROPOFOL 200 MG/20 ML AMP IV ONE (12:00)
[2017-05-21] MEDS ORDERED: ePHEDrine/NS 25 MG/5 ML SYRINGE IV ONE (12:00)
[2017-05-21] MEDS ORDERED: GLYCOPYRROLATE 1 MG/5 ML SYRINGE IV PUSH ONE (12:00)
--- NOTE | 2017-05-21 12:06 | GIPROC ---
[facility] [address] [facility]. [facility], [address] EGD PROCEDURE REPORT EXAM DATE: 05/21/2017 PATIENT NAME: Abdi Alva MR #: [id number] BIRTHDATE: 1960 ATTENDING: Leydi Zepeda MD ORDER #: [id number] ICT QUALITY ASSURANCE ENGINEER: Inna Acevedo and Alli Puckett STATUS: inpatient INDICATIONS: The patient is a 56 yr old male here for an EGD due to anemai, weight loss, abd pain PROCEDURE PERFORMED: EGD w/ biopsy MEDICATIONS: None and Per Anesthesia. TOPICAL ANESTHETIC: none CONSENT: The patient understands the risks and benefits of the procedure and understands that these risks include, but are not limited to: sedation, allergic reaction, infection, perforation and/or bleeding. Alternative means of evaluation and treatment include, among others: physical exam, x-rays, and/or surgical intervention. The patient elects to proceed with this endoscopic procedure. medical equipment was checked for proper function. Hand hygiene and appropriate measures for infection prevention was taken. After the risks, benefits and alternatives of the procedure were thoroughly explained, Informed consent was verified, confirmed and timeout was successfully executed by the treatment team. The patient was anesthetized with topical anesthesia and the [id number] (Pedi C) endoscope was introduced through the mouth and advanced to the second portion of the duodenum. Retroflexed views revealed a hiatal hernia The gastroscope was then slowly withdrawn and removed. Esophagitis distal esophagus-biopsy gastritis antrum-biopsy. ADVERSE EVENTS: There were no complications. IMPRESSIONS: 1. Esophagitis distal esophagus-biopsy gastritis antrum-biopsy 2. Retroflexed views revealed a hiatal hernia RECOMMENDATIONS: 1. Await biopsy results. Biopsy results will not be ready for 7-10 days. If you don't hear from us in two weeks, call our office for biopsy results. 2. Anti-reflux regimen 3. Continue PPI 4. Avoid NSAIDS 5. Ct abdomen and pelvis afp hep c viral laod fu gi upon dc PATIENT CONDITION: stable DISPOSITION: Inpatient REPEAT EXAM: Return 3 months EGD pending biopsy results Leydi Zepeda MD eSigned: Leydi Zepeda MD 05/21/2017 12:06 PM cc: PATIENT NAME: Abdi Alva MR#: [id number]
[2017-05-21] MEDS: METHADONE HCL 10 MG TAB PO SCH (12:55)
[2017-05-21] MEDS ORDERED: DIATRIZOATE MEGLUM/DIATRIZOATE SOD 9 ML CUP PO ONE (14:30)
[2017-05-21] MEDS ORDERED: GADODIAMIDE PF 287 MG/ML 5 ML VIAL (for RAD MRI) IVCONTRAST ONE (15:49)
--- NOTE | 2017-05-21 16:44 | RADRPT ---
EXAM DATE/TIME: 05/21/2017 15:14 [facility] COMPARISON: FOOT LEFT COMPLETE ([id number]), May 19, 2017, 21:23. MRI FOOT LEFT W & W/O CONTRAST, April 23 18, 15:52. INDICATIONS : Wound over left medial foot where great toe was removed. CONTRAST: 14 cc Omniscan (gadodiamide) IV MEDICAL HISTORY : Hypertension. Diabetes mellitus type 2. Hepatitis C. SURGICAL HISTORY : Hemorrhoidectomy. Tonsillectomy. Inguinal hernia repair. Lt toe removed ENCOUNTER: Subsequent ACUITY: 1 month PAIN SCORE: 0/10 LOCATION: Left foot TECHNIQUE: Multiplanar, multisequence MRI examination was performed without contrast and after the intravenous a dministration of gadolinium. FINDINGS: There is now marrow edema involving the distal two thirds of the first metatarsal suspicious for arth ritis. The second third fourth and fifth metatarsals appear unremarkable. There is generalized edema present. There is no deep space abscess. CONCLUSION: Osteomyelitis first metatarsal extensive subcutaneous edema without abscess Gregory Montiel MD FACR on May 21, 2017 at 16:39 Board Certified Radiologist. This report was verified electronically.
--- NOTE | 2017-05-21 17:02 | HHI.PR ---
Subjective Remarks sp EGD/colonoscopy today creatinine much improved Denies nausea and vomiting c/o pain on left foot. Objective Vitals Vital Signs Date Time Temp Pulse Resp B/P (MAP) Pulse Ox O2 Delivery O2 Flow Rate FiO2 05/21/17 12:04 98.5 68 18 139/79 (99) 98 05/21/17 12:00 98.0 65 19 150/75 (100) 95 05/21/17 08:00 54 05/21/17 08:00 98.0 58 17 120/69 (86) 95 05/21/17 04:20 98.2 54 18 93/51 (65) 95 05/21/17 04:00 64 05/21/17 00:00 53 05/21/17 00:00 98.3 51 19 109/59 (76) 98 05/20/17 20:31 50 05/20/17 19:40 97.2 46 18 107/65 (79) 97 I/O 05/20/17 05/20/17 05/20/17 05/21/17 05/21/17 05/21/17 06:59 14:59 22:59 06:59 14:59 22:59 Intake Total 1100 ml 1200 ml 100 ml 680 ml 200 ml Balance 1100 ml 1200 ml 100 ml 680 ml 200 ml Intake Oral 480 ml IV Total 1100 ml 200 ml 100 ml 200 ml Packed Cells 800 ml Blood Product IV Normal Saline Flush 200 ml Other 200 ml # Voids 6 # Bowel Movements 8 Result Diagram: 05/21/17 0837 05/21/17 0837 Imaging Last Impressions Chest X-Ray 05/19/172039 Signed Impressions: Service Date/Time: Friday, May 19, 2017 21:21 - CONCLUSION: No acute disease. Mk Mtz MD Foot X-Ray 05/19/17 0000 Signed Impressions: Service Date/Time: Friday, May 19, 2017 21:23 - CONCLUSION: 1. Amputation of the left great toe. No bony destructive changes. Mk Mtz MD Objective Remarks GENERAL: This is a well-nourished, well-developed patient, in no apparent distress. SKIN: No rashes, ecchymoses. Cool and dry CARDIOVASCULAR: Regular rate and rhythm without murmurs, gallops, or rubs. RESPIRATORY: Clear to auscultation. Breath sounds equal bilaterally. No wheezes , rales, or rhonchi. GASTROINTESTINAL: Abdomen soft, non-tender, nondistended.. No guarding. MUSCULOSKELETAL: Extremities without clubbing, cyanosis, or edema. . No calf tenderness. Left big toe amputated. Left foot medial aspect near bunion area with erythema, swelling, purulent discharge in between sutures NEUROLOGICAL: Awake and alert. Motor and sensory grossly within normal limits. Normal speech. Medications and IVs Current Medications Medications (Trade) Dose Ordered Sig/Nithin Route Start Time Stop Time Status Last Admin (NS Flush) 2 ml UNSCH PRN IV FLUSH 05/19/17 22:45 (NS Flush) 2 ml BID IV FLUSH 05/20/17 09:00 05/20/17 21:00 (Narcan Inj) 0.4 mg UNSCH PRN IV PUSH 05/19/17 22:45 Pharmacy Profile Note 0 ml @ 0 mls/hr UNSCH OTHER 05/19/17 22:45 Piperacillin Sod/ Tazobactam Sod 100 ml @ 200 mls/hr Q6H IV 05/20/17 04:00 05/21/17 16:49 (D50w (Vial) Inj) 50 ml UNSCH PRN IV PUSH 05/19/17 22:45 05/21/17 08:05 (Glucagon Inj) 1 mg UNSCH PRN OTHER 05/19/17 22:45 (NovoLOG SUPPLEMENTAL SCALE) 1 ACHS SLIDING SCALE SQ 05/20/17 08:00 05/20/17 13:20 (Morphine Inj) 2 mg Q3H PRN IV PUSH 05/19/17 22:45 (Duoneb Neb) 1 ampule Q6HR NEB NEB 05/20/17 04:00 05/21/17 03:11 (Duoneb Neb) 1 ampule Q2HR NEB PRN NEB 05/19/17 23:45 Pantoprazole Sodium 80 mg/ Sodium Chloride 100 ml @ 10 mls/hr Q10H IV 05/20/17 07:20 05/21/17 03:43 Dextrose/Sodium Chloride 1,000 ml @ 42 mls/hr [id number] IV 05/20/17 06:30 05/21/17 06:17 Vancomycin HCl 1000 mg/Sodium Chloride 250 ml @ 250 mls/hr Q24H IV 05/20/17 11:00 05/21/17 11:00 Miscellaneous Information SPECIFIC LAB TO BE DRAWN:VANCO TROUGH DATE TO... ONCE ONCE .XX 05/22/17 10:45 05/22/17 10:46 (Dolophine) 220 mg DAILY PO 05/20/17 13:15 05/21/17 12:55 Lactated Ringer's 1,000 ml @ 30 mls/hr Q24H PRN IV 05/20/17 19:00 05/23/17 18:59 Sodium Chloride 500 ml @ 30 mls/hr [id number] PRN IV 05/20/17 19:00 05/23/17 18:59 (Betadine 5% Antisepsis Kit) 1 applic PLANT FACILITIES TECHNICIAN PRN EACH NARE 05/20/17 19:00 05/23/17 18:59 (Chlorhexidine 2% Cloth) 3 pack PLANT FACILITIES TECHNICIAN PRN TOPICAL 05/20/17 19:00 05/23/17 18:59 Lactated Ringer's 1,000 ml @ 30 mls/hr Q24H PRN IV 05/21/17 11:15 05/24/17 11:14 Sodium Chloride 500 ml @ 30 mls/hr [id number] PRN IV 05/21/17 11:15 05/24/17 11:14 (Lopressor) 25 mg PLANT FACILITIES TECHNICIAN PRN PO 05/21/17 11:15 05/24/17 11:14 (Betadine 5% Antisepsis Kit) 1 applic PLANT FACILITIES TECHNICIAN PRN EACH NARE 05/21/17 11:15 05/24/17 11:14 (Chlorhexidine 2% Cloth) 3 pack PLANT FACILITIES TECHNICIAN PRN TOPICAL 05/21/17 11:15 05/24/17 11:14 (NovoLIN R INJ) See Protocol Table ... PLANT FACILITIES TECHNICIAN PRN SQ 05/21/17 11:15 05/24/17 11:14 A/P Problem List: (1) Wound infection after surgery ICD Code: T81.4XXA - Infection following a procedure, initial encounter Status: Acute Plan: Continue wound care. Continue pain management with methadone and IV morphine. Podiatry consulted. Recommendations appreciated. Continue IV antibiotics the patient currently on IV vancomycin IV Zosyn, however wound cultures growing MRSA. Discontinue IV Zosyn, continue IV vancomycin. MRI shows osteomyelitis of the first metatarsal extensive subcutaneous edema without abscess. Consult infectious disease. (2) Anemia ICD Code: D64.9 - Anemia, unspecified Status: Chronic Plan: Chronic normocytic MCV anemia. Suspect likely secondary to liver cirrhosis and hepatic disease. The patient status post EGD/colonoscopy which showed esophagitis of the distal esophagus, gastritis of the antrum. Biopsies were obtained. Follow-up pathology. Continue PPI, avoid NSAIDs. CT abdomen and pelvis ordered and pending. (3) DANILO (acute kidney injury) ICD Code: N17.9 - Acute kidney failure, unspecified Plan: Creatinine on admission elevated at 1.65. Likely due to prerenal azotemia. Creatinine trending down improving with IV fluids. Creatinine down to 1.19. Discontinue IV fluids. (4) HTN (hypertension) ICD Code: I10 - HTN (hypertension) Status: Acute Plan: Patient with borderline hypotension earlier today. BP now much better. Continue to monitor vital signs. (5) Diabetes mellitus, type II ICD Code: E11.9 - Type 2 diabetes mellitus without complications Status: Chronic Plan: Metformin held on admission. Continue SSI with insulin NovoLog and continue to monitor Accu-Cheks. Blood sugar seem to be stable. (6) COPD (chronic obstructive pulmonary disease) ICD Code: J44.9 - Chronic obstructive pulmonary disease, unspecified Plan: He does not seem to be on exacerbation. The patient is satting well at 98% on room air. (7) Weight loss ICD Code: R63.4 - Abnormal weight loss Plan: We will consult dietitian. GI following as above. (8) Chronic diastolic heart failure ICD Code: I50.32 - Chronic diastolic (congestive) heart failure Plan: As per review of records the patient has a normal EF on an echocardiogram obtained on 2012. The patient does not seem to be an exacerbation. Continue CHUNG inhibitor. (9) Hepatitis C ICD Code: B19.20 - Unspecified viral hepatitis C without hepatic coma Plan: Otitis C antibody reactive in 2012. Hepatitis C RNA viral load pending. Repeat HIV antibody test. Last was negative in 2009. (10) Liver cirrhosis ICD Code: K74.60 - Unspecified cirrhosis of liver Plan: Most likely related to alcohol and hepatitis C. Continue to monitor LFTs which were normal A couple days ago. (11) Foot osteomyelitis, left ICD Code: M86.9 - Osteomyelitis, unspecified Plan: Continue IV antibiotics and management as above. Assessment and Plan DVT prophylaxis: SCDs, avoid chemoprophylaxis given anemia. Discharge Planning ID consulted. Problem Qualifiers (1) Wound infection after surgery: Qualified Codes: T81.4XXA - Infection following a procedure, initial encounter (2) Anemia: Qualified Codes: D64.9 - Anemia, unspecified (3) HTN (hypertension): Qualified Codes: I10 - Essential (primary) hypertension (4) Diabetes mellitus, type II: Qualified Codes: E11.621 - Type 2 diabetes mellitus with foot ulcer; L97.509 - Non-pressure chronic ulcer of other part of unspecified foot with unspecified severity (5) COPD (chronic obstructive pulmonary disease): Qualified Codes: J44.9 - Chronic obstructive pulmonary disease, unspecified (6) Hepatitis C: (7) Liver cirrhosis: Qualified Codes: K70.30 - Alcoholic cirrhosis of liver without ascites (8) Foot osteomyelitis, left: Qualified Codes: M86.9 - Osteomyelitis, unspecified Merritt Grigsby MD May 21, 2017 17:02
[2017-05-21] MEDS ORDERED: IOHEXOL 350 MG/ML 10 ML VIAL (for RAD DIAG) IVCONTRAST ONE (19:54)
--- NOTE | 2017-05-21 21:54 | RADRPT ---
EXAM DATE/TIME: 05/21/2017 19:54 [facility] COMPARISON: No previous studies available for comparison. INDICATIONS : Weight loss. IV CONTRAST: 96 cc Omnipaque 350 (iohexol) IV ORAL CONTRAST: Partial prescribed oral contrast ingested. RADIATION DOSE: 12.72 CTDIvol (mGy) MEDICAL HISTORY : Congestive heart failure. Chronic obstructive pulmonary disease. Hypertension.Asthma, Diabetes, Cirrh osis, Hepatitis C, Substance abuse SURGICAL HISTORY : None. ENCOUNTER: Initial ACUITY: 1 month PAIN SCALE: 3/10 LOCATION: abdomen TECHNIQUE: Volumetric scanning of the abdomen and pelvis was performed. Using automated exposure control and ad justment of the mA and/or kV according to patient size, radiation dose was kept as low as reasonably achievable to obtain optimal diagnostic quality images. DICOM format image data is available electro nically for review and comparison. FINDINGS: Small bilateral pleural effusions with mild basilar consolidations small hiatal hernia. No acute find ings in the liver, spleen, adrenals, kidneys and pancreas. The gallbladder wall is thickened. No sign ificant inflammatory changes are seen around the gallbladder. There is a smaller free fluid in the pelvis and paracolic gutters. No free air. No bowel obstruction. Advanced osteoarthritis of the right hip with abnormal rotation. CONCLUSION: 1. Minimal ascites. Thickened gallbladder wall without evidence for inflammatory change. No obstructi on. Mk Mtz MD on May 21, 2017 at 21:49 Board Certified Radiologist. This report was verified electronically.
[2017-05-22] VITALS (9 sets, daily range): BP systolic 117–192; BP diastolic 62–101; PULSE 48–75; RESP 18–20; TEMP 98.6–98.9; O2SAT 92–95
[2017-05-22] MEDS: PANTOPRAZOLE INJ 80 MG in SODIUM CHLORIDE 0.9% INJ 100 ML IV SCH ×2 (00:51→08:46)
[2017-05-22] MEDS: RESP: ALBUTEROL 2.5 MG/IPRATROPIUM 0.5 MG NEB (SCH) NEB ×4 (03:52→19:17)
[2017-05-22] MEDS: INSULIN ASPART SUPPLEMENTAL SCALE SQ SCH ×4 (08:00→22:00)
[2017-05-22] MEDS: SODIUM CHLORIDE 0.9% FLUSH 10 ML FLUSH IV FLUSH SCH ×2 (08:46→21:00)
[2017-05-22] MEDS: METHADONE HCL 10 MG TAB PO SCH (08:47)
[2017-05-22 10:07] LABS: HEMATOCRIT 35.5 % (39.0-51.0); HEMOGLOBIN 12.2 GM/DL (13.0-17.0); MEAN CELL VOLUME 85.7 FL (80.0-100.0); MEAN CORPUSCULAR HEMOGLOBIN 29.4 PG (27.0-34.0); MEAN CORPUSCULAR HGB CONC 34.3 % (32.0-36.0); MEAN PLATELET VOLUME 8.7 FL (7.0-11.0); PLATELET COUNT 164 TH/MM3 (150-450); RED BLOOD COUNT 4.14 MIL/MM3 (4.50-5.90); RED CELL DISTRIBUTION WIDTH 15.4 % (11.6-17.2); WHITE BLOOD COUNT 8.3 TH/MM3 (4.0-11.0)
[2017-05-22 10:15] LABS: ALBUMIN 2.5 GM/DL (3.4-5.0); AST (GOT) 18 U/L (15-37); BICARBONATE 24.7 MEQ/L (21.0-32.0); BLOOD UREA NITROGEN 11 MG/DL (7-18); CALCIUM 8.7 MG/DL (8.5-10.1); CHLORIDE 104 MEQ/L (98-107); CREATININE 1.07 MG/DL (0.60-1.30); GLOMERULAR FILTRATION RATE 71 ML/MIN (>89); GLUCOSE,RANDOM 101 MG/DL (74-106); MAGNESIUM 1.7 MG/DL (1.5-2.5); SODIUM (NA) 138 MEQ/L (136-145)
[2017-05-22 10:17] LABS: ALT (GPT) 14 U/L (12-78); PHOSPHORUS 3.1 MG/DL (2.5-4.9)
[2017-05-22 10:18] LABS: ALKALINE PHOSPHATASE 77 U/L (45-117); TOTAL BILIRUBIN ADULT 0.5 MG/DL (0.2-1.0); TOTAL PROTEIN 7.1 GM/DL (6.4-8.2)
[2017-05-22] MEDS ORDERED: PHARMACY ORDERED LAB ONE (10:45)
[2017-05-22] MEDS: VANCOMYCIN 1,000 MG/NS 250 ML IV SCH ×2 (11:35)
--- NOTE | 2017-05-22 14:53 | HHI.PR ---
Subjective Remarks Patient states that pain is controlled. Denies fevers or chills. Blood pressure seems to be very elevated in the 160 systolic. Objective Vitals Vital Signs Date Time Temp Pulse Resp B/P (MAP) Pulse Ox O2 Delivery O2 Flow Rate FiO2 05/22/17 08:00 51 05/22/17 08:00 98.8 58 20 167/89 (115) 93 05/22/17 07:46 Room Air 05/22/17 04:14 48 05/22/17 04:00 Room Air 05/22/17 04:00 98.6 48 18 166/84 (111) 94 05/22/17 00:01 57 05/21/17 20:00 99.6 57 18 148/73 (98) 95 05/21/17 19:15 53 05/21/17 16:00 98.1 65 18 144/75 (98) 95 I/O 05/21/17 05/21/17 05/21/17 05/22/17 05/22/17 05/22/17 07:00 15:00 23:00 07:00 15:00 23:00 Intake Total 680 ml 200 ml 340 ml Output Total 1400 ml Balance 680 ml 200 ml -1060 ml Intake Oral 480 ml 240 ml IV Total 200 ml 100 ml Other 200 ml Output Urine Total 1400 ml # Voids 6 # Bowel Movements 8 0 Result Diagram: 05/22/17 0859 05/22/17 0859 Imaging Last Impressions Foot MRI 05/21/17 0000 Signed Impressions: Service Date/Time: Sunday, May 21, 2017 15:14 - CONCLUSION: Osteomyelitis first metatarsal extensive subcutaneous edema without abscess Gregory Montiel MD FACR Abdomen/Pelvis CT 05/21/17 0000 Signed Impressions: Service Date/Time: Sunday, May 21, 2017 19:54 - CONCLUSION: 1. Minimal ascites. Thickened gallbladder wall without evidence for inflammatory change. No obstruction. Mk Mtz MD Chest X-Ray 05/19/172039 Signed Impressions: Service Date/Time: Friday, May 19, 2017 21:21 - CONCLUSION: No acute disease. Mk Mtz MD Foot X-Ray 05/19/17 0000 Signed Impressions: Service Date/Time: Friday, May 19, 2017 21:23 - CONCLUSION: 1. Amputation of the left great toe. No bony destructive changes. Mk Mtz MD Objective Remarks GENERAL: This is a well-nourished, well-developed patient, in no apparent distress. SKIN: No rashes, ecchymoses. Cool and dry CARDIOVASCULAR: Regular rate and rhythm without murmurs, gallops, or rubs. RESPIRATORY: Clear to auscultation. Breath sounds equal bilaterally. No wheezes , rales, or rhonchi. GASTROINTESTINAL: Abdomen soft, non-tender, nondistended.. No guarding. MUSCULOSKELETAL: Extremities without clubbing, cyanosis, or edema. . No calf tenderness. Left big toe amputated. Left foot with dressing C/D/I. NEUROLOGICAL: Awake and alert. Motor and sensory grossly within normal limits. Normal speech. Medications and IVs Current Medications Medications (Trade) Dose Ordered Sig/Nithin Route Start Time Stop Time Status Last Admin (NS Flush) 2 ml UNSCH PRN IV FLUSH 05/19/17 22:45 (NS Flush) 2 ml BID IV FLUSH 05/20/17 09:00 05/22/17 08:46 (Narcan Inj) 0.4 mg UNSCH PRN IV PUSH 05/19/17 22:45 Pharmacy Profile Note 0 ml @ 0 mls/hr UNSCH OTHER 05/19/17 22:45 (D50w (Vial) Inj) 50 ml UNSCH PRN IV PUSH 05/19/17 22:45 05/21/17 08:05 (Glucagon Inj) 1 mg UNSCH PRN OTHER 05/19/17 22:45 (NovoLOG SUPPLEMENTAL SCALE) 1 ACHS SLIDING SCALE SQ 05/20/17 08:00 05/20/17 13:20 (Morphine Inj) 2 mg Q3H PRN IV PUSH 05/19/17 22:45 (Duoneb Neb) 1 ampule Q6HR NEB NEB 05/20/17 04:00 05/21/17 03:11 (Duoneb Neb) 1 ampule Q2HR NEB PRN NEB 05/19/17 23:45 Pantoprazole Sodium 80 mg/ Sodium Chloride 100 ml @ 10 mls/hr Q10H IV 05/20/17 07:20 05/22/17 08:46 (Dolophine) 220 mg DAILY PO 05/20/17 13:15 05/22/17 08:47 Lactated Ringer's 1,000 ml @ 30 mls/hr Q24H PRN IV 05/20/17 19:00 05/23/17 18:59 Sodium Chloride 500 ml @ 30 mls/hr [id number] PRN IV 05/20/17 19:00 05/23/17 18:59 (Betadine 5% Antisepsis Kit) 1 applic CHEMISTRY TUTOR PRN EACH NARE 05/20/17 19:00 05/23/17 18:59 (Chlorhexidine 2% Cloth) 3 pack CHEMISTRY TUTOR PRN TOPICAL 05/20/17 19:00 05/23/17 18:59 Lactated Ringer's 1,000 ml @ 30 mls/hr Q24H PRN IV 05/21/17 11:15 05/24/17 11:14 Sodium Chloride 500 ml @ 30 mls/hr [id number] PRN IV 05/21/17 11:15 05/24/17 11:14 (Lopressor) 25 mg CHEMISTRY TUTOR PRN PO 05/21/17 11:15 05/24/17 11:14 (Betadine 5% Antisepsis Kit) 1 applic CHEMISTRY TUTOR PRN EACH NARE 05/21/17 11:15 05/24/17 11:14 (Chlorhexidine 2% Cloth) 3 pack CHEMISTRY TUTOR PRN TOPICAL 05/21/17 11:15 05/24/17 11:14 (NovoLIN R INJ) See Protocol Table ... CHEMISTRY TUTOR PRN SQ 05/21/17 11:15 05/24/17 11:14 Vancomycin HCl 1000 mg/Sodium Chloride 250 ml @ 250 mls/hr Q18H IV 05/23/17 05:00 Miscellaneous Information SPECIFIC LAB TO BE LETITIA... ONCE ONCE .XX 05/24/17 16:45 05/24/17 16:46 Urinary Catheter: No Vascular Central Line Catheter: No A/P Problem List: (1) Wound infection after surgery ICD Code: T81.4XXA - Infection following a procedure, initial encounter Status: Acute Plan: Continue wound care. Continue pain management with methadone and IV morphine. Podiatry consulted. Recommendations appreciated. Continue IV antibiotics the patient currently on IV vancomycin IV Zosyn, however wound cultures growing MRSA. Discontinue IV Zosyn, continue IV vancomycin. MRI shows osteomyelitis of the first metatarsal extensive subcutaneous edema without abscess. 05/22 ID consult pending. (2) Anemia ICD Code: D64.9 - Anemia, unspecified Status: Chronic Plan: Chronic normocytic MCV anemia. Suspect likely secondary to liver cirrhosis and hepatic disease. Iron studies concordant with iron deficiency anemia. The patient status post EGD/colonoscopy which showed esophagitis of the distal esophagus, gastritis of the antrum. Biopsies were obtained. Follow-up pathology. Continue PPI, avoid NSAIDs. 05/22 CT abdomen and pelvis with minimal ascites. Thickened gallbladder wall without evidence for inflammatory change. No obstruction. (3) DANILO (acute kidney injury) ICD Code: N17.9 - Acute kidney failure, unspecified Plan: Creatinine on admission elevated at 1.65. Likely due to prerenal azotemia. Creatinine trending down improving with IV fluids. Creatinine down to 1.07 Acute kidney injury resolving. (4) HTN (hypertension) ICD Code: I10 - HTN (hypertension) Status: Acute Plan: Patient with borderline hypotension earlier today. BP now much better. Continue to monitor vital signs. 05/22 BP severely elevated in the 160's systolic. Resume amlodipine 5 mg po daily. Start Clonidine 0.1 mg orally as needed for systolic blood pressure more than 160. (5) Diabetes mellitus, type II ICD Code: E11.9 - Type 2 diabetes mellitus without complications Status: Chronic Plan: Metformin held on admission. Continue SSI with insulin NovoLog and continue to monitor Accu-Cheks. Blood sugar seem to be stable. (6) COPD (chronic obstructive pulmonary disease) ICD Code: J44.9 - Chronic obstructive pulmonary disease, unspecified Plan: He does not seem to be on exacerbation. The patient is satting well on room air. (7) Weight loss ICD Code: R63.4 - Abnormal weight loss Plan: Dietitian consulted, recommendations pending. GI following as above. (8) Chronic diastolic heart failure ICD Code: I50.32 - Chronic diastolic (congestive) heart failure Plan: As per review of records the patient has a normal EF on an echocardiogram obtained on 2012. The patient does not seem to be an exacerbation. Continue CHUNG inhibitor. (9) Hepatitis C ICD Code: B19.20 - Unspecified viral hepatitis C without hepatic coma Plan: Hepatitis c antibody reactive in 2012. Hepatitis C RNA viral load pending. Repeat HIV antibody test. Last was negative in 2009. (10) Liver cirrhosis ICD Code: K74.60 - Unspecified cirrhosis of liver Plan: Most likely related to alcohol and hepatitis C. 05/22 AST and ALT within normal range. (11) Foot osteomyelitis, left ICD Code: M86.9 - Osteomyelitis, unspecified Plan: Continue IV antibiotics and management as above. (12) Low TSH level ICD Code: R94.6 - Abnormal results of thyroid function studies Status: Acute Plan: TSH level obtained on 05/20, low at 0.189. Will check free T4. Assessment and Plan DVT prophylaxis: SCDs, avoid chemoprophylaxis given anemia. Discharge Planning ID consulted. Problem Qualifiers (1) Wound infection after surgery: Qualified Codes: T81.4XXA - Infection following a procedure, initial encounter (2) Anemia: Qualified Codes: D64.9 - Anemia, unspecified (3) HTN (hypertension): Qualified Codes: I10 - Essential (primary) hypertension (4) Diabetes mellitus, type II: Qualified Codes: E11.621 - Type 2 diabetes mellitus with foot ulcer; L97.509 - Non-pressure chronic ulcer of other part of unspecified foot with unspecified severity (5) COPD (chronic obstructive pulmonary disease): Qualified Codes: J44.9 - Chronic obstructive pulmonary disease, unspecified (6) Hepatitis C: (7) Liver cirrhosis: Qualified Codes: K70.30 - Alcoholic cirrhosis of liver without ascites (8) Foot osteomyelitis, left: Qualified Codes: M86.9 - Osteomyelitis, unspecified Merritt Grigsby MD May 22, 2017 14:53
[2017-05-22] MEDS ORDERED: amLODIPine BESYLATE 5 MG TAB PO ONE (15:00)
[2017-05-22] MEDS ORDERED: cloNIDine HCL 0.1 MG TAB PO PRN (15:00)
--- NOTE | 2017-05-22 15:25 | PD.ID.CON ---
History of Present Illness Service ID Consult Requested By Dr Martinez Reason for Consult L 1 MT osteo Primary Care Physician No Primary Care Physician Diagnoses: History of Present Illness 56-year-old male with extensive past medical history ( hypertension, diabetes, CHF, depression, COPD, hepatitis C, liver cirrhosis) H/o left diabetic foot infection sp L hallux ampuitation. He was sent from Dr. Gomez's office since patient failed oral antibiotics there is increased erythema and edema noted with purulent discharge from the medial aspect of transmetatarsal amputation site. No fever or leukocytosis on presenteation MRI showed osteomyelitis first metatarsal extensive subcutaneous edema without abscess Pt was started on Broad spectrum abx (zosyn, vanco), switched to vancomycin monotherapyu after clx showed MRSA Dr Lee saw the pt and is planneing for surgery tomorrow Review of Systems Except as stated in HPI: all other systems reviewed are Neg Past Family Social History Allergies: Coded Allergies: codeine (Verified Adverse Reaction, Severe, NAUSEA, 05/12/17) Past Medical History htn dm chf at one point depression when his 2yrs ago copd hepatitis C liver cirrhosis right foot chronically shorter than left from prior hip fx Past Surgical History left thigh glass removal hemorrhoidectomy left toe amputation tonsilectomy left inguinal hernia abdominal sx for nail injuries from work Active Ordered Medications Medications where reviewed in EMR Antibiotics Include: -z-o-s-y-n- stopped vanco Family History dad- heart problems, asthma father's mother- had cancer, not sure which kind, maybe liver - but related to etoh Social History quit smoking about a month- used to smoke about 0.5-1 ppd quit etoh about 10-11 yrs ago; used to drink heavily quit drugs about 10-11 yrs ago as well, used to use iv heroine and everything admits cocaine use Physical Exam Vital Signs Vital Signs Date Time Temp Pulse Resp B/P (MAP) Pulse Ox O2 Delivery O2 Flow Rate FiO2 05/22/17 12:00 55 05/22/17 12:00 98.9 63 20 192/101 (131) 94 05/22/17 08:00 51 05/22/17 08:00 98.8 58 20 167/89 (115) 93 05/22/17 07:46 Room Air 05/22/17 04:14 48 05/22/17 04:00 Room Air 05/22/17 04:00 98.6 48 18 166/84 (111) 94 05/22/17 00:01 57 05/21/17 20:00 99.6 57 18 148/73 (98) 95 05/21/17 19:15 53 05/21/17 16:00 98.1 65 18 144/75 (98) 95 Physical Exam CONSTITUTIONAL/GENERAL: This is an adequately nourished patient, in no apparent distress. TUBES/LINES/DRAINS: SKIN: No jaundice, rashes, or lesions. Skin temperature appropriate. Not diaphoretic. HEAD: Atraumatic. Normocephalic. EYES: Pupils equal and round and reactive. Extraocular motions intact. No scleral icterus. No injection or drainage. Fundi not examined. ENT: Hearing grossly normal. Nose without bleeding or purulent drainage. Throat without visible erythema, exudates, masses, or lesions. CARDIOVASCULAR: Regular rate and rhythm without murmurs, gallops, or rubs. No JVD. Peripheral pulses symmetric. RESPIRATORY/CHEST: Symmetric, unlabored respirations. Clear to auscultation. Breath sounds equal bilaterally. No wheezes, rales, or rhonchi. GASTROINTESTINAL: Abdomen soft, non-tender, nondistended. No hepato-splenomegaly , or palpable masses. No guarding. Bowel sounds present. MUSCULOSKELETAL: Extremities without clubbing, cyanosis, or edema. No joint tenderness or effusion noted. No calf tenderness. No mottling or clubbing. B/l feet wih prominent hammer toes deformitis and b/l hallux valgus deformities L foot with draining ulcer over lateral aspect of 1st MT, odorless d/c + edema, some erythema no ascending cellulitis, lymphangitis LYMPHATICS: No palpable cervical or supraclavicular adenopathy. NEUROLOGICAL: Awake and alert. Motor and sensory grossly within normal limits. Follows commands. Clear speech. Moves all extremities. PSYCHIATRIC: No obvious anxiety/depression. no apparent hallucinations or other psychotic thought process. Laboratory Laboratory Tests Test 05/21/17 18:54 05/22/17 08:59 05/22/17 10:40 Tumor Marker Alpha Fetoprotein 1.6 White Blood Count 8.3 Red Blood Count 4.14 Hemoglobin 12.2 Hematocrit 35.5 Mean Corpuscular Volume 85.7 Mean Corpuscular Hemoglobin 29.4 Mean Corpuscular Hemoglobin Concent 34.3 Red Cell Distribution Width 15.4 Platelet Count 164 Mean Platelet Volume 8.7 Blood Urea Nitrogen 11 Creatinine 1.07 Random Glucose 101 Total Protein 7.1 Albumin 2.5 Calcium Level 8.7 Phosphorus Level 3.1 Magnesium Level 1.7 Alkaline Phosphatase 77 Aspartate Amino Transf (AST/SGOT) 18 Alanine Aminotransferase (ALT/SGPT) 14 Total Bilirubin 0.5 Sodium Level 138 Potassium Level 3.8 Chloride Level 104 Carbon Dioxide Level 24.7 Anion Gap 9 Estimat Glomerular Filtration Rate 71 Vancomycin Level Trough 7.7 Date/Time Source Procedure Growth Status 05/19/17 20:54 Blood Peripheral Aerobic Blood Culture - Preliminary NO GROWTH IN 3 DAYS Resulted 05/19/17 20:54 Blood Peripheral Anaerobic Blood Culture - Preliminary NO GROWTH IN 3 DAYS Resulted 05/19/17 20:54 Wound Foot Gram Stain - Final Complete 05/19/17 20:54 Wound Culture - Final S. Aureus Mrsa Complete Result Diagram: 05/22/17 0859 05/22/17 0859 Imaging Last Impressions Foot MRI 05/21/17 0000 Signed Impressions: Service Date/Time: Sunday, May 21, 2017 15:14 - CONCLUSION: Osteomyelitis first metatarsal extensive subcutaneous edema without abscess Gregory Montiel MD FACR Abdomen/Pelvis CT 05/21/17 0000 Signed Impressions: Service Date/Time: Sunday, May 21, 2017 19:54 - CONCLUSION: 1. Minimal ascites. Thickened gallbladder wall without evidence for inflammatory change. No obstruction. Mk Mtz MD Chest X-Ray 05/19/172039 Signed Impressions: Service Date/Time: Friday, May 19, 2017 21:21 - CONCLUSION: No acute disease. Mk Mtz MD Foot X-Ray 05/19/17 0000 Signed Impressions: Service Date/Time: Friday, May 19, 2017 21:23 - CONCLUSION: 1. Amputation of the left great toe. No bony destructive changes. Mk Mtz MD Assessment and Plan Assessment and Plan L foot DFI, osteo, 1 st MT, MRSA cont vancomycin agree with plan to procede with surgery keep level 15-20 anticipate d/c on plonged IV abx Discussed Condition With Vida Mace MD May 22, 2017 15:24
--- NOTE | 2017-05-22 16:57 | HHI.GIFU ---
Subjective Remarks Pt denies any GI symptoms at this time States BM last night Denies nausea, vomiting, abdominal pain Tolerating PO (Yessy Sepulveda) Objective Vitals I&O Vital Signs Date Time Temp Pulse Resp B/P (MAP) Pulse Ox O2 Delivery O2 Flow Rate FiO2 05/22/17 12:00 55 05/22/17 12:00 98.9 63 20 192/101 (131) 94 05/22/17 08:00 51 05/22/17 08:00 98.8 58 20 167/89 (115) 93 05/22/17 07:46 Room Air 05/22/17 04:14 48 05/22/17 04:00 Room Air 05/22/17 04:00 98.6 48 18 166/84 (111) 94 05/22/17 00:01 57 05/21/17 20:00 99.6 57 18 148/73 (98) 95 05/21/17 19:15 53 I/O 05/21/17 05/21/17 05/21/17 05/22/17 05/22/17 05/22/17 07:00 15:00 23:00 07:00 15:00 23:00 Intake Total 680 ml 200 ml 340 ml 250 ml Output Total 1400 ml Balance 680 ml 200 ml -1060 ml 250 ml Intake Oral 480 ml 240 ml IV Total 200 ml 100 ml 250 ml Other 200 ml Output Urine Total 1400 ml # Voids 6 # Bowel Movements 8 0 Laboratory Laboratory Tests Test 05/21/17 18:54 05/22/17 08:59 05/22/17 10:40 Tumor Marker Alpha Fetoprotein 1.6 White Blood Count 8.3 Red Blood Count 4.14 Hemoglobin 12.2 Hematocrit 35.5 Mean Corpuscular Volume 85.7 Mean Corpuscular Hemoglobin 29.4 Mean Corpuscular Hemoglobin Concent 34.3 Red Cell Distribution Width 15.4 Platelet Count 164 Mean Platelet Volume 8.7 Blood Urea Nitrogen 11 Creatinine 1.07 Random Glucose 101 Total Protein 7.1 Albumin 2.5 Calcium Level 8.7 Phosphorus Level 3.1 Magnesium Level 1.7 Alkaline Phosphatase 77 Aspartate Amino Transf (AST/SGOT) 18 Alanine Aminotransferase (ALT/SGPT) 14 Total Bilirubin 0.5 Sodium Level 138 Potassium Level 3.8 Chloride Level 104 Carbon Dioxide Level 24.7 Anion Gap 9 Estimat Glomerular Filtration Rate 71 Vancomycin Level Trough 7.7 Date/Time Source Procedure Growth Status 05/19/17 20:54 Blood Peripheral Aerobic Blood Culture - Preliminary NO GROWTH IN 3 DAYS Resulted 05/19/17 20:54 Blood Peripheral Anaerobic Blood Culture - Preliminary NO GROWTH IN 3 DAYS Resulted 05/19/17 20:54 Wound Foot Gram Stain - Final Complete 05/19/17 20:54 Wound Culture - Final S. Aureus Mrsa Complete Imaging Last Impressions Foot MRI 05/21/17 0000 Signed Impressions: Service Date/Time: Sunday, May 21, 2017 15:14 - CONCLUSION: Osteomyelitis first metatarsal extensive subcutaneous edema without abscess Gregory Montiel MD FACR Abdomen/Pelvis CT 05/21/17 0000 Signed Impressions: Service Date/Time: Sunday, May 21, 2017 19:54 - CONCLUSION: 1. Minimal ascites. Thickened gallbladder wall without evidence for inflammatory change. No obstruction. Mk Mtz MD Chest X-Ray 05/19/172039 Signed Impressions: Service Date/Time: Friday, May 19, 2017 21:21 - CONCLUSION: No acute disease. Mk Mtz MD Foot X-Ray 05/19/17 0000 Signed Impressions: Service Date/Time: Friday, May 19, 2017 21:23 - CONCLUSION: 1. Amputation of the left great toe. No bony destructive changes. Mk Mtz MD Physical Exam HEENT: Normocephalic; atraumatic CHEST: Even/unlabored CARDIAC: RRR ABDOMEN: Soft, nondistended, nontender; bowel sounds active APPLICATION SPEC: No focal deficits; alert and oriented times three. (Yessy SepulvedaP) Assessment and Plan Plan ASSESSMENT - anemia - hgb 9.7 on admission now 8.9 normocytic. multifactorial. admits episode rectal bleeding 6 months ago but denies any bleeding currently. Last colonoscopy some years ago, cannot recall details. - weight loss - likely r/t depression since his . - hx hep c, cirrhosis - tx naive, told his viral load too low for tx. (05/22) --> S/P EGD and colonoscopy yesterday --> Esophagitis, gastritis, hiatal hernia. Internal hemorrhoids. Diverticulosis in sigmoid and descending colon. H/H stable. Reports BM last night. Denies any GI symptoms at this time. CT abdomen and pelvis noted --> Minimal ascites. Thickened gallbladder wall without evidence for inflammatory change. No obstruction. AFP-1.6. Hep C genotype and Quant pending. Pt planned for surgery on his foot tomorrow for osteomyelitis PLAN - Hep C genotype and quant- can follow up outpt - EGD biopsy pending - Protonix - Avoid NSAIDs - Benefiber - Probiotics - GI will sign off, please reconsult as needed - Have pt follow up with GI after discharge Pt has been seen and examined by myself and Dr. Zepeda and this note is done on her behalf (Yessy Sepulveda) Yessy Sepulveda May 22, 2017 16:57 Leydi Zepeda MD May 22, 2017 18:43
--- NOTE | 2017-05-22 17:35 | HHI.PR ---
Subjective Remarks Patient seen bedside. Resting comfortably. Denies any nausea, vomiting, fevers , or chills. States he is ready to go home. Objective Vital Signs Date Time Temp Pulse Resp B/P (MAP) Pulse Ox O2 Delivery O2 Flow Rate FiO2 05/22/17 12:00 55 05/22/17 12:00 98.9 63 20 192/101 (131) 94 05/22/17 08:00 51 05/22/17 08:00 98.8 58 20 167/89 (115) 93 05/22/17 07:46 Room Air 05/22/17 04:14 48 05/22/17 04:00 Room Air 05/22/17 04:00 98.6 48 18 166/84 (111) 94 05/22/17 00:01 57 05/21/17 20:00 99.6 57 18 148/73 (98) 95 05/21/17 19:15 53 I/O 05/21/17 05/21/17 05/21/17 05/22/17 05/22/17 05/22/17 07:00 15:00 23:00 07:00 15:00 23:00 Intake Total 680 ml 200 ml 340 ml 250 ml 80 ml Output Total 1400 ml Balance 680 ml 200 ml -1060 ml 250 ml 80 ml Intake Oral 480 ml 240 ml IV Total 200 ml 100 ml 250 ml 80 ml Other 200 ml Output Urine Total 1400 ml # Voids 6 # Bowel Movements 8 0 Result Diagram: 05/22/17 0859 05/22/17 0859 Imaging Last Impressions Foot MRI 05/21/17 0000 Signed Impressions: Service Date/Time: Sunday, May 21, 2017 15:14 - CONCLUSION: Osteomyelitis first metatarsal extensive subcutaneous edema without abscess Gregory Montiel MD FACR Abdomen/Pelvis CT 05/21/17 0000 Signed Impressions: Service Date/Time: Sunday, May 21, 2017 19:54 - CONCLUSION: 1. Minimal ascites. Thickened gallbladder wall without evidence for inflammatory change. No obstruction. Mk Mtz MD Chest X-Ray 05/19/172039 Signed Impressions: Service Date/Time: Friday, May 19, 2017 21:21 - CONCLUSION: No acute disease. Mk Mtz MD Foot X-Ray 05/19/17 0000 Signed Impressions: Service Date/Time: Friday, May 19, 2017 21:23 - CONCLUSION: 1. Amputation of the left great toe. No bony destructive changes. Mk Mtz MD Objective Remarks Lower extremity physical exam: Vascular: Dorsalis pedis 1 out of 4, posterior tibial nonpalpable. Capillary refill time within normal limits to digits 5 bilateral foot. Edema present left foot and ankle Neuro: Gross sensation intact to bilateral lower extremity. Pinpoint sensation decreased. No hyperalgesia noted to bilateral lower extremity Dermatology: Left medial foot wound noted with fibro-purulent drainage less than 1 cc total on compression wound measuring no bigger than 1 cm x 1 cm with no probe to bone, increased edema and erythema noted to site. Left lateral distal blister noted with associated deep tissue injury and serous drainage, increased erythema and edema noted to site. Musculoskeletal: Left transmetatarsal irritation noted. Right severe bunion noted. No tenderness to palpation. Medications and IVs Current Medications Medications (Trade) Dose Ordered Sig/Nithin Route Start Time Stop Time Status Last Admin (NS Flush) 2 ml UNSCH PRN IV FLUSH 05/19/17 22:45 (NS Flush) 2 ml BID IV FLUSH 05/20/17 09:00 05/22/17 08:46 (Narcan Inj) 0.4 mg UNSCH PRN IV PUSH 05/19/17 22:45 Pharmacy Profile Note 0 ml @ 0 mls/hr UNSCH OTHER 05/19/17 22:45 (D50w (Vial) Inj) 50 ml UNSCH PRN IV PUSH 05/19/17 22:45 05/21/17 08:05 (Glucagon Inj) 1 mg UNSCH PRN OTHER 05/19/17 22:45 (NovoLOG SUPPLEMENTAL SCALE) 1 ACHS SLIDING SCALE SQ 05/20/17 08:00 05/22/17 15:43 (Morphine Inj) 2 mg Q3H PRN IV PUSH 05/19/17 22:45 (Duoneb Neb) 1 ampule Q6HR NEB NEB 05/20/17 04:00 05/22/17 15:51 (Duoneb Neb) 1 ampule Q2HR NEB PRN NEB 05/19/17 23:45 (Dolophine) 220 mg DAILY PO 05/20/17 13:15 05/22/17 08:47 Lactated Ringer's 1,000 ml @ 30 mls/hr Q24H PRN IV 05/20/17 19:00 05/23/17 18:59 Sodium Chloride 500 ml @ 30 mls/hr [id number] PRN IV 05/20/17 19:00 05/23/17 18:59 (Betadine 5% Antisepsis Kit) 1 applic FOAM TANK LAMINATOR PRN EACH NARE 05/20/17 19:00 05/23/17 18:59 (Chlorhexidine 2% Cloth) 3 pack FOAM TANK LAMINATOR PRN TOPICAL 05/20/17 19:00 05/23/17 18:59 Lactated Ringer's 1,000 ml @ 30 mls/hr Q24H PRN IV 05/21/17 11:15 05/24/17 11:14 Sodium Chloride 500 ml @ 30 mls/hr [id number] PRN IV 05/21/17 11:15 05/24/17 11:14 (Lopressor) 25 mg FOAM TANK LAMINATOR PRN PO 05/21/17 11:15 05/24/17 11:14 (Betadine 5% Antisepsis Kit) 1 applic FOAM TANK LAMINATOR PRN EACH NARE 05/21/17 11:15 05/24/17 11:14 (Chlorhexidine 2% Cloth) 3 pack FOAM TANK LAMINATOR PRN TOPICAL 05/21/17 11:15 05/24/17 11:14 (NovoLIN R INJ) See Protocol Table ... FOAM TANK LAMINATOR PRN SQ 05/21/17 11:15 05/24/17 11:14 Vancomycin HCl 1000 mg/Sodium Chloride 250 ml @ 250 mls/hr Q18H IV 05/23/17 05:00 Miscellaneous Information SPECIFIC LAB TO BE LETITIA... ONCE ONCE .XX 05/24/17 16:45 05/24/17 16:46 (Norvasc) 5 mg DAILY PO 05/23/17 09:00 (Catapres) 0.1 mg Q6H PRN PO 05/22/17 15:00 (Protonix) 40 mg DAILY PO 05/23/17 09:00 Assessment and Plan Assessment and Plan 56-year-old male with left foot infection Patient examined evaluated with all questions answered MRI left foot ordered -since distal two thirds of metatarsal have increased signal intensity this most likely represents osteomyelitis and postsurgical changes Discussed MRI with patient Patient would like to avoid IV antibiotics long-term at all costs as he states it is difficult for home health to come and see him where he lives Patient is on board with first metatarsal resection to left foot Will obtain consent N.p.o. after midnight Into the DC 2-3 days after surgical intervention Will obtain proximal clearing margins and send bone for path and micro Sutures removed from medial incision site Left foot dressed with Betadine and dry sterile dressing Nursing to change dressing daily to consist of Betadine to medial and lateral wounds Continue IV antibiotics Rhoda David DPM May 22, 2017 17:35
[2017-05-23] VITALS (10 sets, daily range): BP systolic 118–186; BP diastolic 67–92; PULSE 45–76; RESP 18–20; TEMP 97.6–98.9; O2SAT 93–98
[2017-05-23] MEDS ORDERED: GABAPENTIN 300 MG CAP PO ONE (00:30)
[2017-05-23] MEDS: RESP: ALBUTEROL 2.5 MG/IPRATROPIUM 0.5 MG NEB (SCH) NEB ×4 (03:46→19:45)
[2017-05-23] MEDS: VANCOMYCIN 1,000 MG/NS 250 ML IV SCH ×4 (05:33→22:21)
[2017-05-23 06:40] LABS: CREATININE 1.01 MG/DL (0.60-1.30)
[2017-05-23] MEDS ORDERED: NEOMYCIN/POLYMYXIN 1 ML G.U. IRRIGANT ONE (07:23)
[2017-05-23] MEDS ORDERED: BUPIVACAINE HCL PF 0.5% 30 ML VIAL ONE (07:25)
[2017-05-23] MEDS ORDERED: BACITRACIN TOP OINT 15 GM TUBE ONE (07:25)
[2017-05-23] MEDS: INSULIN ASPART SUPPLEMENTAL SCALE SQ SCH ×4 (07:51→21:32)
[2017-05-23] MEDS: amLODIPine BESYLATE 5 MG TAB PO SCH (07:53)
[2017-05-23] MEDS: PANTOPRAZOLE SOD 40 MG DELAYED RELEASE TAB PO SCH (07:53)
[2017-05-23] MEDS: METHADONE HCL 10 MG TAB PO SCH (07:53)
[2017-05-23] MEDS: SODIUM CHLORIDE 0.9% FLUSH 10 ML FLUSH IV FLUSH SCH ×2 (07:53→21:30)
[2017-05-23] MEDS ORDERED: MIDAZOLAM HCL 2 MG/2 ML VIAL ONE (09:40)
--- NOTE | 2017-05-23 09:46 | HHI.PR ---
Subjective Remarks Patient seen bedside in preop. States he agrees with planned surgical intervention. Objective Vital Signs Date Time Temp Pulse Resp B/P (MAP) Pulse Ox O2 Delivery O2 Flow Rate FiO2 05/23/17 09:35 Room Air 05/23/17 04:00 98.8 60 20 141/87 (105) 94 05/23/17 03:41 59 05/23/17 00:00 98.9 69 20 148/82 (104) 96 05/22/17 22:53 56 05/22/17 22:00 Room Air 05/22/17 20:00 98.6 75 20 117/62 (80) 95 05/22/17 19:42 73 05/22/17 16:00 98.8 64 20 148/71 (96) 92 05/22/17 16:00 48 05/22/17 12:00 55 05/22/17 12:00 98.9 63 20 192/101 (131) 94 I/O 05/22/17 05/22/17 05/22/17 05/23/17 05/23/17 05/23/17 07:00 15:00 23:00 07:00 15:00 23:00 Intake Total 340 ml 250 ml 920 ml 480 ml 250 ml Output Total 1400 ml Balance -1060 ml 250 ml 920 ml 480 ml 250 ml Intake Oral 240 ml 840 ml 480 ml IV Total 100 ml 250 ml 80 ml 250 ml Output Urine Total 1400 ml # Voids 4 3 # Bowel Movements 0 0 Result Diagram: 05/22/17 0859 05/23/17 0530 Imaging Last Impressions Foot MRI 05/21/17 0000 Signed Impressions: Service Date/Time: Sunday, May 21, 2017 15:14 - CONCLUSION: Osteomyelitis first metatarsal extensive subcutaneous edema without abscess Gregory Montiel MD FACR Abdomen/Pelvis CT 05/21/17 0000 Signed Impressions: Service Date/Time: Sunday, May 21, 2017 19:54 - CONCLUSION: 1. Minimal ascites. Thickened gallbladder wall without evidence for inflammatory change. No obstruction. Mk Mtz MD Chest X-Ray 05/19/172039 Signed Impressions: Service Date/Time: Friday, May 19, 2017 21:21 - CONCLUSION: No acute disease. Mk Mtz MD Foot X-Ray 05/19/17 0000 Signed Impressions: Service Date/Time: Friday, May 19, 2017 21:23 - CONCLUSION: 1. Amputation of the left great toe. No bony destructive changes. Mk Mtz MD Other Results Microbiology Date/Time Source Procedure Growth Status 05/19/17 20:54 Blood Peripheral Aerobic Blood Culture - Preliminary NO GROWTH IN 3 DAYS Resulted 05/19/17 20:54 Blood Peripheral Anaerobic Blood Culture - Preliminary NO GROWTH IN 3 DAYS Resulted 05/19/17 20:54 Wound Foot Gram Stain - Final Complete 05/19/17 20:54 Wound Culture - Final S. Aureus Mrsa Complete Objective Remarks Lower extremity physical exam: Vascular: Dorsalis pedis 1 out of 4, posterior tibial nonpalpable. Capillary refill time within normal limits to digits 5 bilateral foot. Edema present left foot and ankle Neuro: Gross sensation intact to bilateral lower extremity. Pinpoint sensation decreased. No hyperalgesia noted to bilateral lower extremity Dermatology: Left medial foot wound noted with fibro-purulent drainage less than 1 cc total on compression wound measuring no bigger than 1 cm x 1 cm with no probe to bone, increased edema and erythema noted to site. Left lateral distal blister noted with associated deep tissue injury and serous drainage, increased erythema and edema noted to site. Musculoskeletal: Left transmetatarsal irritation noted. Right severe bunion noted. No tenderness to palpation. Medications and IVs Current Medications Medications (Trade) Dose Ordered Sig/Nithin Route Start Time Stop Time Status Last Admin (NS Flush) 2 ml UNSCH PRN IV FLUSH 05/19/17 22:45 (NS Flush) 2 ml BID IV FLUSH 05/20/17 09:00 05/23/17 07:53 (Narcan Inj) 0.4 mg UNSCH PRN IV PUSH 05/19/17 22:45 Pharmacy Profile Note 0 ml @ 0 mls/hr UNSCH OTHER 05/19/17 22:45 (D50w (Vial) Inj) 50 ml UNSCH PRN IV PUSH 05/19/17 22:45 05/21/17 08:05 (Glucagon Inj) 1 mg UNSCH PRN OTHER 05/19/17 22:45 (NovoLOG SUPPLEMENTAL SCALE) 1 ACHS SLIDING SCALE SQ 05/20/17 08:00 05/22/17 15:43 (Morphine Inj) 2 mg Q3H PRN IV PUSH 05/19/17 22:45 (Duoneb Neb) 1 ampule Q6HR NEB NEB 05/20/17 04:00 05/23/17 03:46 (Duoneb Neb) 1 ampule Q2HR NEB PRN NEB 05/19/17 23:45 (Dolophine) 220 mg DAILY PO 05/20/17 13:15 05/23/17 07:53 Lactated Ringer's 1,000 ml @ 30 mls/hr Q24H PRN IV 05/20/17 19:00 05/23/17 18:59 Sodium Chloride 500 ml @ 30 mls/hr [id number] PRN IV 05/20/17 19:00 05/23/17 18:59 (Betadine 5% Antisepsis Kit) 1 applic CHOCOLATE TEMPERER PRN EACH NARE 05/20/17 19:00 05/23/17 18:59 (Chlorhexidine 2% Cloth) 3 pack CHOCOLATE TEMPERER PRN TOPICAL 05/20/17 19:00 05/23/17 18:59 Lactated Ringer's 1,000 ml @ 30 mls/hr Q24H PRN IV 05/21/17 11:15 05/24/17 11:14 Sodium Chloride 500 ml @ 30 mls/hr [id number] PRN IV 05/21/17 11:15 05/24/17 11:14 (Lopressor) 25 mg CHOCOLATE TEMPERER PRN PO 05/21/17 11:15 05/24/17 11:14 (Betadine 5% Antisepsis Kit) 1 applic CHOCOLATE TEMPERER PRN EACH NARE 05/21/17 11:15 05/24/17 11:14 (Chlorhexidine 2% Cloth) 3 pack CHOCOLATE TEMPERER PRN TOPICAL 05/21/17 11:15 05/24/17 11:14 (NovoLIN R INJ) See Protocol Table ... CHOCOLATE TEMPERER PRN SQ 05/21/17 11:15 05/24/17 11:14 Vancomycin HCl 1000 mg/Sodium Chloride 250 ml @ 250 mls/hr Q18H IV 05/23/17 05:00 05/23/17 05:33 Miscellaneous Information SPECIFIC LAB TO BE LETITIA... ONCE ONCE .XX 05/24/17 16:45 05/24/17 16:46 (Norvasc) 5 mg DAILY PO 05/23/17 09:00 05/23/17 07:53 (Catapres) 0.1 mg Q6H PRN PO 05/22/17 15:00 (Protonix) 40 mg DAILY PO 05/23/17 09:00 05/23/17 07:53 Assessment and Plan Assessment and Plan 56-year-old male with left foot infection Patient examined evaluated with all questions answered To OR today for first metatarsal resection secondary to OM Consent signed Patient has remained NPO LLE marked Anticipate DC 2-3 days after surgical intervention Will obtain proximal clearing margins and send bone for path and micro Continue IV abx therapy Rhoda David DPM May 23, 2017 09:46
--- NOTE | 2017-05-23 09:50 | HHI.PR ---
Immediate Post Op Note Procedure Date: May 23, 2017 Pre Op Diagnosis: Left first metatarsal osteomyelitis Post Op Diagnosis: Left first metatarsal osteomyelitis Surgeon: Rhoda David Padded Products Finisher(s): None Procedure: Left first metatarsal resection Findings: None Additional Information: None Complications: None Specimen(s) removed: Left first metatarsal for path and micro Left foot soft tissue Estimated blood loss: 5cc Anesthesia: General Drains: Hemovac IVF Tourniquet time (min at mmHg) 32 Patient to: PACU Patient Condition: Good Rhoda David DPM May 23, 2017 09:50
[2017-05-23] MEDS ORDERED: Post-op Orders (for Pharmacy) XX ONE (10:45)
[2017-05-23] MEDS ORDERED: DEXTROSE 50% IN WATER 50 ML SYRINGE ONE (10:49)
[2017-05-23] MEDS ORDERED: *RESP: ALBUTEROL 2.5 MG/3 ML NEB (PRN) PERIprocedural Use ONLY NEB ONE (10:53)
--- NOTE | 2017-05-23 11:21 | MP ---
cc: Rhoda David DPM DATE OF OPERATION: SURGEON: Rhoda David DPM STACK YIELD ENGINEER: None. PREOPERATIVE DIAGNOSIS: Left first metatarsal osteomyelitis. POSTOPERATIVE DIAGNOSIS: Left first metatarsal osteomyelitis. PROCEDURE: Left first metatarsal resection. ANESTHESIA: IV sedation, local infiltrate of 0.5% Marcaine plain, 10 mL total. HEMOSTASIS: Ankle tourniquet set at 250 mmHg for 32 minutes. ESTIMATED BLOOD LOSS: 5 mL. MATERIALS: 2-0 and 3-0 Prolene, 3-0 nylon. INJECTABLES: None. COMPLICATIONS: None. INDICATIONS FOR PROCEDURE: The patient is a 56-year-old male who is status post left hallux amputation. The patient has a draining sinus noted to amputation site with positive OM noted to the distal 2/3 of first metatarsal on MRI. The patient had increased redness, swelling with ascending cellulitis. A decision was made with the patient and infectious disease team for left hallux amputation, as he will be unable to tolerate IV antibiotics. The patient understands all benefits, risks, complications associated with the procedure and he would like to proceed. DESCRIPTION OF PROCEDURE: The patient was brought back to the operating room, placed on the operating room table in the supine position. IV sedation was then induced. Ankle tourniquet was applied to left ankle. Left foot was prepped, scrubbed, draped in the usual sterile fashion. Esmarch was used to exsanguinate left foot. Ankle tourniquet was inflated. Attention was directed to hallux amputation site. A 3 cm incision was made along the medial aspect of first metatarsal. This incision was taken through skin to subcutaneous tissue with care to retract all vital neurovascular structures. Care was taken to dissect out all necrotic nonviable tissue. Dissection was carried down through capsule to bone. Periosteum was reflected from first metatarsal. A sagittal saw was utilized to remove first metatarsal head. Once sagittal saw was utilized at first metatarsal head, copious irrigation was performed. Following copious irrigation, proximal clean margin was obtained. Once clean margin was obtained, it was sent for pathology and microbiology. Soft tissue was taken for microbiology. The site was then copiously irrigated and closed with 2-0, 3-0 Prolene. A ELMER drain was placed to site for control of drainage. Attention was then directed to left foot lateral aspect where a blister was noted. Blister was deroofed. Bacitracin was applied. Xeroform was applied to left first metatarsal amputation site, followed by 4 x 4's, cast padding, CHUNG, and Coban. The patient tolerated the procedure and anesthesia well and ankle tourniquet was deflated. Noted to be capillary refill time to digits 2, 3, 4, and 5. He was transferred to PACU with vital signs stable and neurovascular status intact. YANIQUE Saxena/TI , 10:50 AM , 11:20 AM
[2017-05-23] MEDS ORDERED: DO NOT ADM ANY ANTICOAGULANT DRUGS PRN (11:30)
[2017-05-23] MEDS ORDERED: LIDOCAINE HCL 1% PF 5 ML SYRINGE OTHER ONE (12:00)
[2017-05-23] MEDS ORDERED: STERILE WATER FOR INJECTION 20 ML VIAL IV ONE (12:00)
[2017-05-23] MEDS ORDERED: PROPOFOL 200 MG/20 ML AMP IV ONE (12:00)
[2017-05-23] MEDS ORDERED: DEXTROSE 50% IN WATER 50 ML VIAL(D50) IV PUSH ONE (12:15)
--- NOTE | 2017-05-23 12:23 | RADRPT ---
EXAM DATE/TIME: 05/23/2017 11:02 [facility] COMPARISON: FOOT LEFT COMPLETE ([id number]), May 19, 2017, 21:23. INDICATIONS : Post operative foot xray. MEDICAL HISTORY : None. SURGICAL HISTORY : None. ENCOUNTER: Initial ACUITY: 1 day PAIN SCORE: Non-responsive. LOCATION: Left Foot. FINDINGS: The patient is status post resection of the left first metatarsal head. Surgical drain is noted withi n the surgical bed. CONCLUSION: Status post resection of the left first metatarsal head with surgical drain in place. Bruce Silveira MD on May 23, 2017 at 12:20 Board Certified Radiologist. This report was verified electronically.
--- NOTE | 2017-05-23 12:52 | HHI.PR ---
Subjective Remarks Pain controlled. sp left 1st metatarsal resection. Denies nausea, vomiting or abdominal pain. Objective Vitals Vital Signs Date Time Temp Pulse Resp B/P (MAP) Pulse Ox O2 Delivery O2 Flow Rate FiO2 05/23/17 11:30 97.8 47 16 119/73 (88) 96 Nasal Cannula 2 05/23/17 11:15 46 16 115/70 (85) 96 Nasal Cannula 2 05/23/17 11:00 45 16 120/68 (85) 95 Nasal Cannula 2 05/23/17 10:45 97.6 52 20 127/60 (82) 99 Nasal Cannula 3 05/23/17 09:35 Room Air 05/23/17 08:00 73 05/23/17 08:00 98.5 76 20 186/92 (123) 93 05/23/17 04:00 98.8 60 20 141/87 (105) 94 05/23/17 03:41 59 05/23/17 00:00 98.9 69 20 148/82 (104) 96 05/22/17 22:53 56 05/22/17 22:00 Room Air 05/22/17 20:00 98.6 75 20 117/62 (80) 95 05/22/17 19:42 73 05/22/17 16:00 98.8 64 20 148/71 (96) 92 05/22/17 16:00 48 I/O 05/22/17 05/22/17 05/22/17 05/23/17 05/23/17 05/23/17 07:00 15:00 23:00 07:00 15:00 23:00 Intake Total 340 ml 250 ml 920 ml 480 ml 900 ml Output Total 1400 ml 5 ml Balance -1060 ml 250 ml 920 ml 480 ml 895 ml Intake Oral 240 ml 840 ml 480 ml IV Total 100 ml 250 ml 80 ml 900 ml Output Urine Total 1400 ml Estimated Blood Loss 5 ml # Voids 4 3 # Bowel Movements 0 0 Result Diagram: 05/22/17 0859 05/23/17 0530 Imaging Last Impressions Foot MRI 05/21/17 0000 Signed Impressions: Service Date/Time: Sunday, May 21, 2017 15:14 - CONCLUSION: Osteomyelitis first metatarsal extensive subcutaneous edema without abscess Gregory Montiel MD FACR Abdomen/Pelvis CT 05/21/17 0000 Signed Impressions: Service Date/Time: Sunday, May 21, 2017 19:54 - CONCLUSION: 1. Minimal ascites. Thickened gallbladder wall without evidence for inflammatory change. No obstruction. Mk Mtz MD Chest X-Ray 05/19/172039 Signed Impressions: Service Date/Time: Friday, May 19, 2017 21:21 - CONCLUSION: No acute disease. Mk Mtz MD Foot X-Ray 05/19/17 0000 Signed Impressions: Service Date/Time: Friday, May 19, 2017 21:23 - CONCLUSION: 1. Amputation of the left great toe. No bony destructive changes. Mk Mtz MD Objective Remarks GENERAL: This is a well-nourished, well-developed patient, in no apparent distress. SKIN: No rashes, ecchymoses. Cool and dry CARDIOVASCULAR: Regular rate and rhythm without murmurs, gallops, or rubs. RESPIRATORY: Clear to auscultation. Breath sounds equal bilaterally. No wheezes , rales, or rhonchi. GASTROINTESTINAL: Abdomen soft, non-tender, nondistended.. No guarding. MUSCULOSKELETAL: Extremities without clubbing, cyanosis, or edema. . No calf tenderness. Left big toe amputated. Left foot with dressing C/D/I. NEUROLOGICAL: Awake and alert. Motor and sensory grossly within normal limits. Normal speech. Medications and IVs Current Medications Medications (Trade) Dose Ordered Sig/Nithin Route Start Time Stop Time Status Last Admin (NS Flush) 2 ml UNSCH PRN IV FLUSH 05/19/17 22:45 (NS Flush) 2 ml BID IV FLUSH 05/20/17 09:00 05/23/17 07:53 (Narcan Inj) 0.4 mg UNSCH PRN IV PUSH 05/19/17 22:45 Pharmacy Profile Note 0 ml @ 0 mls/hr UNSCH OTHER 05/19/17 22:45 (D50w (Vial) Inj) 50 ml UNSCH PRN IV PUSH 05/19/17 22:45 05/21/17 08:05 (Glucagon Inj) 1 mg UNSCH PRN OTHER 05/19/17 22:45 (NovoLOG SUPPLEMENTAL SCALE) 1 ACHS SLIDING SCALE SQ 05/20/17 08:00 05/22/17 15:43 (Morphine Inj) 2 mg Q3H PRN IV PUSH 05/19/17 22:45 (Duoneb Neb) 1 ampule Q6HR NEB NEB 05/20/17 04:00 05/23/17 16:03 (Duoneb Neb) 1 ampule Q2HR NEB PRN NEB 05/19/17 23:45 (Dolophine) 220 mg DAILY PO 05/20/17 13:15 05/23/17 07:53 Lactated Ringer's 1,000 ml @ 30 mls/hr Q24H PRN IV 05/21/17 11:15 05/24/17 11:14 Sodium Chloride 500 ml @ 30 mls/hr [id number] PRN IV 05/21/17 11:15 05/24/17 11:14 (Lopressor) 25 mg COOK'S ASSISTANT PRN PO 05/21/17 11:15 05/24/17 11:14 (Betadine 5% Antisepsis Kit) 1 applic COOK'S ASSISTANT PRN EACH NARE 05/21/17 11:15 05/24/17 11:14 (Chlorhexidine 2% Cloth) 3 pack COOK'S ASSISTANT PRN TOPICAL 05/21/17 11:15 05/24/17 11:14 (NovoLIN R INJ) See Protocol Table ... COOK'S ASSISTANT PRN SQ 05/21/17 11:15 05/24/17 11:14 Vancomycin HCl 1000 mg/Sodium Chloride 250 ml @ 250 mls/hr Q18H IV 05/23/17 05:00 05/23/17 05:33 Miscellaneous Information SPECIFIC LAB TO BE LETITIA... ONCE ONCE .XX 05/24/17 16:45 05/24/17 16:46 (Norvasc) 5 mg DAILY PO 05/23/17 09:00 05/23/17 07:53 (Catapres) 0.1 mg Q6H PRN PO 05/22/17 15:00 (Protonix) 40 mg DAILY PO 05/23/17 09:00 05/23/17 07:53 Miscellaneous Information ALL NURSING DEPARTME... UNSCH PRN .XX 05/23/17 11:30 05/24/17 11:29 (Neurontin) 300 mg Q8HR PO 05/23/17 15:45 05/23/17 16:05 A/P Problem List: (1) Wound infection after surgery ICD Code: T81.4XXA - Infection following a procedure, initial encounter Status: Acute Plan: Continue wound care. Continue pain management with methadone and IV morphine. Podiatry consulted. Recommendations appreciated. Continue IV antibiotics the patient currently on IV vancomycin IV Zosyn, however wound cultures growing MRSA. Discontinue IV Zosyn, continue IV vancomycin. MRI shows osteomyelitis of the first metatarsal extensive subcutaneous edema without abscess. 05/23 ID consulted - Continue IV Vancomycin. SP left 1st metatarsal resection. Continue pain control as above. Fu orthopedic surgery recommendations. (2) Anemia ICD Code: D64.9 - Anemia, unspecified Status: Chronic Plan: Chronic normocytic MCV anemia. Suspect likely secondary to liver cirrhosis and hepatic disease. Iron studies concordant with iron deficiency anemia. The patient status post EGD/colonoscopy which showed esophagitis of the distal esophagus, gastritis of the antrum. Biopsies were obtained. Follow-up pathology. Continue PPI, avoid NSAIDs. 05/22 CT abdomen and pelvis with minimal ascites. Thickened gallbladder wall without evidence for inflammatory change. No obstruction. (3) DANILO (acute kidney injury) ICD Code: N17.9 - Acute kidney failure, unspecified Plan: Creatinine on admission elevated at 1.65. Likely due to prerenal azotemia. Creatinine trending down improving with IV fluids. Creatinine down to 1.07 Acute kidney injury resolving. (4) HTN (hypertension) ICD Code: I10 - HTN (hypertension) Status: Acute Plan: Patient with borderline hypotension earlier today. BP now much better. Continue to monitor vital signs. 05/22 BP severely elevated in the 160's systolic. Resume amlodipine 5 mg po daily. Start Clonidine 0.1 mg orally as needed for systolic blood pressure more than 160. 05/23 BP better. Cotninue amlodipine and clonidine as needed at same dose. (5) Diabetes mellitus, type II ICD Code: E11.9 - Type 2 diabetes mellitus without complications Status: Chronic Plan: Metformin held on admission. Continue SSI with insulin NovoLog and continue to monitor Accu-Cheks. Blood sugar seem to be stable. (6) COPD (chronic obstructive pulmonary disease) ICD Code: J44.9 - Chronic obstructive pulmonary disease, unspecified Plan: He does not seem to be on exacerbation. The patient is satting well on room air. (7) Weight loss ICD Code: R63.4 - Abnormal weight loss Plan: Dietitian consulted, recommendations pending. GI following as above. (8) Chronic diastolic heart failure ICD Code: I50.32 - Chronic diastolic (congestive) heart failure Plan: As per review of records the patient has a normal EF on an echocardiogram obtained on 2012. The patient does not seem to be an exacerbation. Continue CHUNG inhibitor. (9) Hepatitis C ICD Code: B19.20 - Unspecified viral hepatitis C without hepatic coma Plan: Hepatitis c antibody reactive in 2012. Hepatitis C RNA viral load pending. Repeat HIV antibody test. Last was negative in 2009. (10) Liver cirrhosis ICD Code: K74.60 - Unspecified cirrhosis of liver Plan: Most likely related to alcohol and hepatitis C. 05/22 AST and ALT within normal range. (11) Foot osteomyelitis, left ICD Code: M86.9 - Osteomyelitis, unspecified Plan: Continue IV antibiotics and management as above. sp first metatarsal resection Pain control (12) Low TSH level ICD Code: R94.6 - Abnormal results of thyroid function studies Status: Acute Plan: TSH level obtained on 05/20, low at 0.189. Will check free T4. Assessment and Plan DVT prophylaxis: SCDs, avoid chemoprophylaxis given anemia. Discharge Planning Pending orthopedic surgery and GI consulted Problem Qualifiers (1) Wound infection after surgery: Qualified Codes: T81.4XXA - Infection following a procedure, initial encounter (2) Anemia: Qualified Codes: D64.9 - Anemia, unspecified (3) HTN (hypertension): Qualified Codes: I10 - Essential (primary) hypertension (4) Diabetes mellitus, type II: Qualified Codes: E11.621 - Type 2 diabetes mellitus with foot ulcer; L97.509 - Non-pressure chronic ulcer of other part of unspecified foot with unspecified severity (5) COPD (chronic obstructive pulmonary disease): Qualified Codes: J44.9 - Chronic obstructive pulmonary disease, unspecified (6) Hepatitis C: (7) Liver cirrhosis: Qualified Codes: K70.30 - Alcoholic cirrhosis of liver without ascites (8) Foot osteomyelitis, left: Qualified Codes: M86.9 - Osteomyelitis, unspecified Merritt Grigsby MD May 23, 2017 12:52
[2017-05-23] MEDS: GABAPENTIN 300 MG CAP PO SCH ×2 (16:05→21:29)
[2017-05-24] VITALS (11 sets, daily range): BP systolic 141–154; BP diastolic 71–78; PULSE 44–63; RESP 18–20; TEMP 98–99.2; O2SAT 92–99
[2017-05-24] MEDS: RESP: ALBUTEROL 2.5 MG/IPRATROPIUM 0.5 MG NEB (SCH) NEB (03:35)
[2017-05-24] MEDS: GABAPENTIN 300 MG CAP PO SCH ×3 (04:29→21:37)
[2017-05-24] MEDS: INSULIN ASPART SUPPLEMENTAL SCALE SQ SCH ×4 (08:00→21:00)
[2017-05-24] MEDS: PANTOPRAZOLE SOD 40 MG DELAYED RELEASE TAB PO SCH (08:37)
[2017-05-24] MEDS: METHADONE HCL 10 MG TAB PO SCH (08:37)
[2017-05-24] MEDS: SODIUM CHLORIDE 0.9% FLUSH 10 ML FLUSH IV FLUSH SCH ×2 (08:42→21:32)
[2017-05-24] MEDS: amLODIPine BESYLATE 5 MG TAB PO SCH (09:00)
--- NOTE | 2017-05-24 14:47 | HHI.PR ---
Subjective Remarks Patient denies chest pain/sob. Afebrile Pain controlled. Objective Vitals Vital Signs Date Time Temp Pulse Resp B/P (MAP) Pulse Ox O2 Delivery O2 Flow Rate FiO2 05/24/17 12:03 99.2 58 20 150/71 (97) 94 05/24/17 12:00 96 Nasal Cannula 2.00 05/24/17 11:19 96 Room Air 05/24/17 10:42 18 05/24/17 08:42 98.0 52 18 150/73 (98) 96 05/24/17 04:23 99.2 63 18 143/76 (98) 98 05/24/17 03:41 54 05/24/17 00:00 99.0 55 18 141/76 (97) 97 05/24/17 00:00 Room Air 05/23/17 23:41 51 05/23/17 20:00 Room Air 05/23/17 20:00 98.4 56 18 135/68 (90) 96 05/23/17 19:47 98 Nasal Cannula 2.00 05/23/17 19:44 48 05/23/17 16:00 45 05/23/17 16:00 98.3 66 20 166/78 (107) 97 I/O 05/23/17 05/23/17 05/23/17 05/24/17 05/24/17 05/24/17 07:00 15:00 23:00 07:00 15:00 23:00 Intake Total 480 ml 900 ml 480 ml Output Total 5 ml 700 ml 600 ml Balance 480 ml 895 ml -220 ml -600 ml Intake Oral 480 ml 480 ml IV Total 900 ml Output Urine Total 700 ml 600 ml Estimated Blood Loss 5 ml # Voids 3 0 # Bowel Movements 1 Result Diagram: 05/22/17 0859 05/23/17 0530 Imaging Last Impressions Foot X-Ray 05/23/17 0000 Signed Impressions: Service Date/Time: Tuesday, May 23, 2017 11:02 - CONCLUSION: Status post resection of the left first metatarsal head with surgical drain in place. Bruce Silveira MD Foot MRI 05/21/17 0000 Signed Impressions: Service Date/Time: Sunday, May 21, 2017 15:14 - CONCLUSION: Osteomyelitis first metatarsal extensive subcutaneous edema without abscess Gregory Montiel MD FACR Abdomen/Pelvis CT 05/21/17 0000 Signed Impressions: Service Date/Time: Sunday, May 21, 2017 19:54 - CONCLUSION: 1. Minimal ascites. Thickened gallbladder wall without evidence for inflammatory change. No obstruction. Mk tMz MD Chest X-Ray 05/19/172039 Signed Impressions: Service Date/Time: Friday, May 19, 2017 21:21 - CONCLUSION: No acute disease. Mk Mtz MD Objective Remarks GENERAL: This is a well-nourished, well-developed patient, in no apparent distress. SKIN: No rashes, ecchymoses. Cool and dry CARDIOVASCULAR: Regular rate and rhythm without murmurs, gallops, or rubs. RESPIRATORY: Clear to auscultation. Breath sounds equal bilaterally. No wheezes , rales, or rhonchi. GASTROINTESTINAL: Abdomen soft, non-tender, nondistended.. No guarding. MUSCULOSKELETAL: Extremities without clubbing, cyanosis, or edema. . No calf tenderness. Left big toe amputated. Left foot with dressing C/D/I. NEUROLOGICAL: Awake and alert. Motor and sensory grossly within normal limits. Normal speech. Procedures Left first metatarsal resection. Medications and IVs Current Medications Medications (Trade) Dose Ordered Sig/Nithin Route Start Time Stop Time Status Last Admin (NS Flush) 2 ml UNSCH PRN IV FLUSH 05/19/17 22:45 05/23/17 21:30 (NS Flush) 2 ml BID IV FLUSH 05/20/17 09:00 05/24/17 08:42 (Narcan Inj) 0.4 mg UNSCH PRN IV PUSH 05/19/17 22:45 Pharmacy Profile Note 0 ml @ 0 mls/hr UNSCH OTHER 05/19/17 22:45 (D50w (Vial) Inj) 50 ml UNSCH PRN IV PUSH 05/19/17 22:45 05/21/17 08:05 (Glucagon Inj) 1 mg UNSCH PRN OTHER 05/19/17 22:45 (NovoLOG SUPPLEMENTAL SCALE) 1 ACHS SLIDING SCALE SQ 05/20/17 08:00 05/23/17 21:32 (Morphine Inj) 2 mg Q3H PRN IV PUSH 05/19/17 22:45 (Duoneb Neb) 1 ampule Q2HR NEB PRN NEB 05/19/17 23:45 (Dolophine) 220 mg DAILY PO 05/20/17 13:15 05/24/17 08:37 Vancomycin HCl 1000 mg/Sodium Chloride 250 ml @ 250 mls/hr Q18H IV 05/23/17 05:00 05/23/17 22:21 Miscellaneous Information SPECIFIC LAB TO BE LETITIA... ONCE ONCE .XX 05/24/17 16:45 05/24/17 16:46 (Norvasc) 5 mg DAILY PO 05/23/17 09:00 05/24/17 09:00 (Catapres) 0.1 mg Q6H PRN PO 05/22/17 15:00 (Protonix) 40 mg DAILY PO 05/23/17 09:00 05/24/17 08:37 (Neurontin) 300 mg Q8HR PO 05/23/17 15:45 05/24/17 04:29 Urinary Catheter: No Vascular Central Line Catheter: No A/P Problem List: (1) Wound infection after surgery ICD Code: T81.4XXA - Infection following a procedure, initial encounter Status: Acute Plan: Continue wound care. Continue pain management with methadone and IV morphine. Podiatry consulted. Recommendations appreciated. Continue IV antibiotics the patient currently on IV vancomycin IV Zosyn, however wound cultures growing MRSA. Discontinue IV Zosyn, continue IV vancomycin. MRI shows osteomyelitis of the first metatarsal extensive subcutaneous edema without abscess. 05/23 ID consulted - Continue IV Vancomycin. SP left 1st metatarsal resection. Continue pain control as above. Fu orthopedic surgery recommendations. 05/24 Awaiting ID recommendations regarding antibiotic therapy. Podiatry cleared patient for DC. (2) Anemia ICD Code: D64.9 - Anemia, unspecified Status: Chronic Plan: Chronic normocytic MCV anemia. Suspect likely secondary to liver cirrhosis and hepatic disease. Iron studies concordant with iron deficiency anemia. The patient status post EGD/colonoscopy which showed esophagitis of the distal esophagus, gastritis of the antrum. Biopsies were obtained. Follow-up pathology. Continue PPI, avoid NSAIDs. 05/22 CT abdomen and pelvis with minimal ascites. Thickened gallbladder wall without evidence for inflammatory change. No obstruction. (3) DANILO (acute kidney injury) ICD Code: N17.9 - Acute kidney failure, unspecified Plan: Creatinine on admission elevated at 1.65. Likely due to prerenal azotemia. Creatinine trending down improving with IV fluids. Creatinine down to 1.07 Acute kidney injury resolving. (4) HTN (hypertension) ICD Code: I10 - HTN (hypertension) Status: Acute Plan: Blood pressure stable. Patient with borderline hypertension on 05/21. Antihypertensive medications held and BP improved. Clonidine was added given that on 05/22 patient had severely elevated hypertension with systolic blood pressure in the 160s. BP stable continue amlodipine and clonidine as needed at the same dose. (5) Diabetes mellitus, type II ICD Code: E11.9 - Type 2 diabetes mellitus without complications Status: Chronic Plan: Metformin held on admission. Continue SSI with insulin NovoLog and continue to monitor Accu-Cheks. Blood sugar seem to be stable. (6) COPD (chronic obstructive pulmonary disease) ICD Code: J44.9 - Chronic obstructive pulmonary disease, unspecified Plan: He does not seem to be on exacerbation. The patient is satting well on room air. (7) Weight loss ICD Code: R63.4 - Abnormal weight loss Plan: GI following as above. 05/24 Dietitian consulted. Recommended increasing calories to 2000 ADA diet and provide Glucerna 3 times daily. (8) Chronic diastolic heart failure ICD Code: I50.32 - Chronic diastolic (congestive) heart failure Plan: As per review of records the patient has a normal EF on an echocardiogram obtained on 2012. The patient does not seem to be an exacerbation. Continue CHUNG inhibitor. (9) Hepatitis C ICD Code: B19.20 - Unspecified viral hepatitis C without hepatic coma Plan: Hepatitis c antibody reactive in 2012. Hepatitis C RNA viral load pending. 05/24 HIV antibody test negative. (10) Liver cirrhosis ICD Code: K74.60 - Unspecified cirrhosis of liver Plan: Most likely related to alcohol and hepatitis C. 05/22 AST and ALT within normal range. (11) Foot osteomyelitis, left ICD Code: M86.9 - Osteomyelitis, unspecified Plan: Continue IV antibiotics and management as above. sp first metatarsal resection Pain control (12) Low TSH level ICD Code: R94.6 - Abnormal results of thyroid function studies Status: Acute Plan: TSH level obtained on 05/20, low at 0.189. Will check free T4. Assessment and Plan DVT prophylaxis: SCDs, avoid chemoprophylaxis given anemia. Discharge Planning DC pending ID recommendations. Problem Qualifiers (1) Wound infection after surgery: Qualified Codes: T81.4XXA - Infection following a procedure, initial encounter (2) Anemia: Qualified Codes: D64.9 - Anemia, unspecified (3) HTN (hypertension): Qualified Codes: I10 - Essential (primary) hypertension (4) Diabetes mellitus, type II: Qualified Codes: E11.621 - Type 2 diabetes mellitus with foot ulcer; L97.509 - Non-pressure chronic ulcer of other part of unspecified foot with unspecified severity (5) COPD (chronic obstructive pulmonary disease): Qualified Codes: J44.9 - Chronic obstructive pulmonary disease, unspecified (6) Hepatitis C: (7) Liver cirrhosis: Qualified Codes: K70.30 - Alcoholic cirrhosis of liver without ascites (8) Foot osteomyelitis, left: Qualified Codes: M86.9 - Osteomyelitis, unspecified Merritt Grigsby MD May 24, 2017 14:47
--- NOTE | 2017-05-24 15:16 | HHI.FF ---
Infusion Therapy Location of Infusion Therapy: Ambulatory Infusion Therapy Order Patient Information Patient Weight 67.6 kg Diagnosis: Coded Allergies: codeine (Verified Adverse Reaction, Severe, NAUSEA, 05/12/17) Administer Medication Daptomycin 500 mg IV q 24 hours Start Treatment: May 24, 2017 Stop Treatment: Jun 28, 2017 Additional Information Additional Instructions [x] Peripheral flush and dressing changes per protocol [x] Implanted port and central gas line repairer: * Implanted port: 10 ml Normal Saline followed by 5 ml Heparin 100 units/ml Heparin flush after each use and monthly to maintain. [] May leave port accessed during therapy. [] May leave peripheral site accessed for duration of therapy. [x] If patient has SOB or respiratory distress, check oxygen saturation. If less than 90% or clinical signs of respiratory distress, administer oxygen at 2 L/min. via nasal cannula and notify physician. [x] Anaphylaxis/Reaction orders: * Stop infusion. * Keep IV line open with saline flush. * Notify physician. * Monitor vital signs every 15 minutes until symptoms resolve. * Check Oxygen saturation; Oxygen at 2 L/min. via nasal cannula if less than 90% or clinical signs of respiratory distress. * Administer diphenhydramine (Benadryl) 25 mg IV STAT, (unless patient has received as pre-med). May repeat once, if necessary. * Solu-Cortef 250 mg IVP over 30-60 seconds, use 100 mg vials for each dissolution. * Epinephrine (1mg/1 ml) 0.3 mg subcutaneously or IVP now with any signs of respiratory distress. * Check with physician for new additional pre-med orders if patient is re- challenged or re-treated. [x] May remove PICC line when treatment complete, after confirming with Physician. [x] If the patient is admitted to the hospital, the ED, or transferred via [facility] , complete transfer form including medication reconciliation order sheet. Laboratory Tests Weekly Labs: CBC w/diff, Creatinine, LFT's (Hepatic function test), SED Rate, Serum CK Levels Vida Will MD May 24, 2017 15:16
--- NOTE | 2017-05-24 15:31 | HHI.IDPN ---
Subjective Subjective Remarks sp surgery: resection of the left first metatarsal head Antibiotics vancomycin Allergies: Coded Allergies: codeine (Verified Adverse Reaction, Severe, NAUSEA, 05/12/17) Objective . Vital Signs Date Time Temp Pulse Resp B/P (MAP) Pulse Ox O2 Delivery O2 Flow Rate FiO2 05/24/17 12:03 99.2 58 20 150/71 (97) 94 05/24/17 12:00 96 Nasal Cannula 2.00 05/24/17 11:19 96 Room Air 05/24/17 10:42 18 05/24/17 08:42 98.0 52 18 150/73 (98) 96 05/24/17 04:23 99.2 63 18 143/76 (98) 98 05/24/17 03:41 54 05/24/17 00:00 99.0 55 18 141/76 (97) 97 05/24/17 00:00 Room Air 05/23/17 23:41 51 05/23/17 20:00 Room Air 05/23/17 20:00 98.4 56 18 135/68 (90) 96 05/23/17 19:47 98 Nasal Cannula 2.00 05/23/17 19:44 48 05/23/17 16:00 45 05/23/17 16:00 98.3 66 20 166/78 (107) 97 . Laboratory Tests Test 05/23/17 05:30 Creatinine 1.01 MG/DL Estimat Glomerular Filtration Rate 76 ML/MIN Microbiology Date/Time Source Procedure Growth Status 05/23/17 10:55 Wound Foot Fungal Smear - Final NO FUNGAL ELEMENTS SEEN. Resulted 05/23/17 10:55 Wound Foot Fungal Culture Pending Resulted 05/23/17 10:55 Wound Foot Acid Fast Stain Pending Received 05/23/17 10:55 Wound Foot Mycobacterial Culture Pending Received 05/23/17 10:55 Wound Foot Gram Stain - Final Resulted 05/23/17 10:55 Wound Foot Wound Culture - Preliminary NO GROWTH IN 24 HOURS. Resulted 05/23/17 10:55 Wound Toe Fungal Smear - Final NO FUNGAL ELEMENTS SEEN. Resulted 05/23/17 10:55 Wound Toe Fungal Culture Pending Resulted 05/23/17 10:55 Wound Toe Acid Fast Stain Pending Received 05/23/17 10:55 Wound Toe Mycobacterial Culture Pending Received 05/23/17 10:55 Wound Toe Gram Stain - Final Resulted 05/23/17 10:55 Wound Toe Wound Culture - Preliminary NO GROWTH IN 24 HOURS. Resulted Imaging Last Impressions Foot X-Ray 05/23/17 0000 Signed Impressions: Service Date/Time: Tuesday, May 23, 2017 11:02 - CONCLUSION: Status post resection of the left first metatarsal head with surgical drain in place. Bruce Silveira MD Foot MRI 05/21/17 0000 Signed Impressions: Service Date/Time: Sunday, May 21, 2017 15:14 - CONCLUSION: Osteomyelitis first metatarsal extensive subcutaneous edema without abscess Gregory Montiel MD FACR Abdomen/Pelvis CT 05/21/17 0000 Signed Impressions: Service Date/Time: Sunday, May 21, 2017 19:54 - CONCLUSION: 1. Minimal ascites. Thickened gallbladder wall without evidence for inflammatory change. No obstruction. Mk Mtz MD Chest X-Ray 05/19/172039 Signed Impressions: Service Date/Time: Friday, May 19, 2017 21:21 - CONCLUSION: No acute disease. Mk Mtz MD Physical Exam CONSTITUTIONAL/GENERAL: This is an adequately nourished patient, in no apparent distress. TUBES/LINES/DRAINS: SKIN: No jaundice, rashes, or lesions. Skin temperature appropriate. Not diaphoretic. RESPIRATORY/CHEST: unlabored respirations. C GASTROINTESTINAL: Abdomen soft, non-tender, nondistended. No hepato-splenomegaly , or palpable masses. No guarding. Bowel sounds present. MUSCULOSKELETAL:dressing in place NEUROLOGICAL: Awake and alert. NOn focal PSYCHIATRIC: No obvious anxiety/depression. no apparent hallucinations or other psychotic thought process. Assessment & Plan Remarks L foot DFI, osteo, 1 st MT, MRSA sp L 1st MT head resection ARF: resolved dc vancomycin switch to dapto as o/p cont IV abx thru May 30 (5 weeks total) can be switched to po clinda at the end of tx if not completely healed OPAT for ms filled out OJK to dc Discussed Condition With Dr Jones pharmacist Vida Will MD May 24, 2017 15:31
[2017-05-24] MEDS ORDERED: EPIN1INJ21 IV PUSH (15:32)
[2017-05-24] MEDS ORDERED: DAPT500P IV (15:32)
[2017-05-24] MEDS ORDERED: EPIN1INJ21 SQ (15:32)
[2017-05-24] MEDS ORDERED: SOLU250I IV PUSH (15:32)
[2017-05-24] MEDS ORDERED: PHARMACY ORDERED LAB ONE (16:45)
--- NOTE | 2017-05-24 17:00 | PD.POD ---
Subjective Podiatric Problems POD #1 left partial first ray amputation with . Pt states that he accidentally pulled the drain out over night. He denies any n/v/f/h/c/sob/pain. Pain score: 0 Past Med/Surg/Social History Social History Smoking Status: Former Smoker Objective Vital Signs Vital Signs Date Time Temp Pulse Resp B/P (MAP) Pulse Ox O2 Delivery O2 Flow Rate FiO2 05/24/17 12:03 99.2 58 20 150/71 (97) 94 05/24/17 12:00 96 Nasal Cannula 2.00 05/24/17 11:19 96 Room Air 05/24/17 10:42 18 05/24/17 08:42 98.0 52 18 150/73 (98) 96 05/24/17 04:23 99.2 63 18 143/76 (98) 98 05/24/17 03:41 54 05/24/17 00:00 99.0 55 18 141/76 (97) 97 05/24/17 00:00 Room Air 05/23/17 23:41 51 05/23/17 20:00 Room Air 05/23/17 20:00 98.4 56 18 135/68 (90) 96 05/23/17 19:47 98 Nasal Cannula 2.00 05/23/17 19:44 48 Coded Allergies: codeine (Verified Adverse Reaction, Severe, NAUSEA, 05/12/17) Physical Exam Remarks Left partial fist ray amputation, all sutures are intact, skin edges are well coapted. No erythema, no drainage. Left lateral ulceration 1cm x 1cm x 0, granular wound bed, no signs of infection Assessment & Plan A/P 1)s/p left partial first ray amp 2)left foot wound -WBAT in surgical shoe -dressing changes provided for nursing staff -surgical cxs pending, ok to d/c once outpt abx can be determined -f/u with 1 week after d/c Danuta James DPM May 24, 2017 17:00
[2017-05-24] MEDS: VANCOMYCIN 1,000 MG/NS 250 ML IV SCH ×2 (17:44)
[2017-05-24 18:16] LABS: FREE T4 1.09 NG/DL (0.76-1.46)
[2017-05-25] VITALS (7 sets, daily range): BP systolic 144–172; BP diastolic 71–83; PULSE 45–57; RESP 18–20; TEMP 97.1–98.1; O2SAT 92–98
[2017-05-25] MEDS: GABAPENTIN 300 MG CAP PO SCH ×2 (05:28→15:40)
[2017-05-25] MEDS: INSULIN ASPART SUPPLEMENTAL SCALE SQ SCH ×2 (08:00→12:00)
[2017-05-25 08:01] LABS: CREATININE 1.01 MG/DL (0.60-1.30)
[2017-05-25] MEDS: PANTOPRAZOLE SOD 40 MG DELAYED RELEASE TAB PO SCH (08:36)
[2017-05-25] MEDS: amLODIPine BESYLATE 5 MG TAB PO SCH (08:36)
[2017-05-25] MEDS: METHADONE HCL 10 MG TAB PO SCH (08:37)
[2017-05-25] MEDS: SODIUM CHLORIDE 0.9% FLUSH 10 ML FLUSH IV FLUSH SCH (08:39)
[2017-05-25] MEDS ORDERED: PHARMACY ORDERED LAB ONE (10:45)
[2017-05-25] MEDS: VANCOMYCIN 1,000 MG/NS 250 ML IV SCH ×2 (11:00)
[2017-05-25] MEDS ORDERED: LISI-515 PO (14:04)
[2017-05-25] MEDS ORDERED: AMLO5 PO (14:04)
--- NOTE | 2017-05-25 14:06 | HHI.DCPOC ---
Discharge Care Plan Diagnosis: (1) Wound infection after surgery (2) Anemia (3) DANILO (acute kidney injury) (4) HTN (hypertension) (5) Foot osteomyelitis, left (6) COPD (chronic obstructive pulmonary disease) (7) Weight loss (8) Liver cirrhosis (9) Diabetes mellitus, type II (10) Hepatitis C (11) Chronic diastolic heart failure (12) Low TSH level Goals to Promote Your Health * To prevent worsening of your condition and complications * To maintain your health at the optimal level Directions to Meet Your Goals Take your medications as prescribed Follow your dietary instruction Follow activity as directed Keep your appointments as scheduled Take your immunizations and boosters as scheduled If your symptoms worsen call your PCP, if no PCP go to Urgent Care Center or Emergency Room Smoking is Dangerous to Your Health. Avoid second hand smoke Call the 24-hour hour crisis hotline for domestic abuse at Merritt Grigsby MD May 25, 2017 14:06
--- NOTE | 2017-05-25 14:18 | HHI.DS ---
Discharge Summary Admission Date May 19, 2017 at 22:35 Discharge Date: May 25, 2017 Admitting Diagnosis left foot post surgical wound infection (1) Wound infection after surgery ICD Code: T81.4XXA - Infection following a procedure, initial encounter Diagnosis: Principal Status: Acute (2) Anemia ICD Code: D64.9 - Anemia, unspecified Diagnosis: Principal Status: Chronic (3) DANILO (acute kidney injury) ICD Code: N17.9 - Acute kidney failure, unspecified Diagnosis: Principal Status: Resolved (4) HTN (hypertension) ICD Code: I10 - HTN (hypertension) Diagnosis: Principal Status: Chronic (5) Diabetes mellitus, type II ICD Code: E11.9 - Type 2 diabetes mellitus without complications Diagnosis: Principal Status: Chronic (6) COPD (chronic obstructive pulmonary disease) ICD Code: J44.9 - Chronic obstructive pulmonary disease, unspecified Diagnosis: Secondary Status: Chronic (7) Weight loss ICD Code: R63.4 - Abnormal weight loss Diagnosis: Principal Status: Acute (8) Chronic diastolic heart failure ICD Code: I50.32 - Chronic diastolic (congestive) heart failure Diagnosis: Secondary Status: Chronic (9) Hepatitis C ICD Code: B19.20 - Unspecified viral hepatitis C without hepatic coma Diagnosis: Secondary Status: Chronic (10) Liver cirrhosis ICD Code: K74.60 - Unspecified cirrhosis of liver Diagnosis: Secondary Status: Chronic (11) Foot osteomyelitis, left ICD Code: M86.9 - Osteomyelitis, unspecified Diagnosis: Principal (12) Low TSH level ICD Code: R94.6 - Abnormal results of thyroid function studies Diagnosis: Principal Status: Acute Procedures Left first metatarsal resection. Brief History - From Admission History from patient, ER physician communication, interview of medical records. Patient reported that he wants to his superintendent [employer] office today and was sent to the hospital. He reports his superintendent [employer] that starting him on Wednesday, about 2 days ago for his left big toe infection. He was started on antibiotics at that time with ciprofloxacin and clindamycin. Today, on a recheck appointment, the wound was not improving and therefore he was sent here. Patient is diabetic. Patient reports that there has been purulent whitish discharge constantly from the wound. However denies fever at home. Patient reports of significant weight loss since the of his about 2 years ago. He reports that he has been quite depressed and has not been eating or drinking well. He also has been homeless since then. Denies any dysphagia/odynophagia. CBC/BMP: 05/22/17 0859 05/25/17 0732 Significant Findings Laboratory Tests Test 05/23/17 05:30 05/23/17 06:36 05/24/17 17:15 05/25/17 07:32 Estimat Glomerular Filtration Rate 76 ML/MIN (>89) 76 ML/MIN (>89) Vancomycin Level Trough 11.0 MCG/ML (5.0-10.0) Test 05/25/17 11:39 Vancomycin Level Trough 11.4 MCG/ML (5.0-10.0) Imaging Last Impressions Foot X-Ray 05/23/17 0000 Signed Impressions: Service Date/Time: Tuesday, May 23, 2017 11:02 - CONCLUSION: Status post resection of the left first metatarsal head with surgical drain in place. Bruce Silveira MD Foot MRI 05/21/17 0000 Signed Impressions: Service Date/Time: Sunday, May 21, 2017 15:14 - CONCLUSION: Osteomyelitis first metatarsal extensive subcutaneous edema without abscess Gregory Montiel MD FACR Abdomen/Pelvis CT 05/21/17 0000 Signed Impressions: Service Date/Time: Sunday, May 21, 2017 19:54 - CONCLUSION: 1. Minimal ascites. Thickened gallbladder wall without evidence for inflammatory change. No obstruction. Mk Mtz MD Chest X-Ray 05/19/172039 Signed Impressions: Service Date/Time: Friday, May 19, 2017 21:21 - CONCLUSION: No acute disease. Mk Mtz MD PE at Discharge GENERAL: This is a well-nourished, well-developed patient, in no apparent distress. SKIN: No rashes, ecchymoses. Cool and dry CARDIOVASCULAR: Regular rate and rhythm without murmurs, gallops, or rubs. RESPIRATORY: Clear to auscultation. Breath sounds equal bilaterally. No wheezes , rales, or rhonchi. GASTROINTESTINAL: Abdomen soft, non-tender, nondistended.. No guarding. MUSCULOSKELETAL: Extremities without clubbing, cyanosis, or edema. . No calf tenderness. Left big toe amputated. Left foot with dressing C/D/I. NEUROLOGICAL: Awake and alert. Motor and sensory grossly within normal limits. Normal speech. Pt update on day of discharge Denies chest pain or shortness of breath. Afebrile. Pain in left foot controlled on methadone and morphine sulfate. Hospital Course (1) Wound infection after surgery We will send consulted. Pain management provided with methadone and IV morphine. Podiatry was consulted, recommended IV antibiotics, MRI. The patient was started on IV vancomycin IV Zosyn, wound cultures grew MRSA. IV Zosyn was discontinued by infectious disease who was consulted. MRI of the left foot showed osteo-myelitis of the first metatarsal with extensive subcutaneous edema without abscess. Podiatry performed a resection of the first metatarsal and cleared patient to be discharged home and to follow-up with them as an outpatient on postsurgical day 2. Home on IV daptomycin as indicated by infectious disease. PICC line placed on day of discharge. (2) Anemia Patient found to have chronic normocytic MCV anemia. Suspect likely secondary to liver cirrhosis and hepatic disease. Iron studies concordant with iron deficiency anemia. The patient is status post EGD/colonoscopy which showed esophagitis of the distal esophagus, gastritis of the antrum. Biopsies were obtained. Follow-up pathology. Continue PPI, avoid NSAIDs. Consult urology recommended CT abdomen and pelvis which showed minimal ascites, thickened gallbladder without evidence for inflammatory change (3) DANILO (acute kidney injury) Creatinine on admission elevated at 1.65. Likely due to prerenal azotemia. With IV fluids and resolved prior to discharge. BUN and creatinine were altered throughout hospital stay, nephrotoxins avoided, history I's and O's monitored. (4) HTN (hypertension) Plan: Blood pressure stable. Patient with borderline hypertension on 05/21. Antihypertensive medications held and BP improved. Clonidine was added given that on 05/22 patient had severely elevated hypertension with systolic blood pressure in the 160s. BP stable continue amlodipine and clonidine as needed at the same dose. (5) Diabetes mellitus, type II Metformin held on admission. Continue SSI with insulin NovoLog and continue to monitor Accu-Cheks. Blood sugar seem to be stable. (6) COPD (chronic obstructive pulmonary disease) Patient was not on exacerbation during hospital stay. Duonebs ordered. (7) Weight loss Dietitian consulted. Recommended increasing calories to 2000 ADA diet and provide Glucerna 3 times daily. (8) Chronic diastolic heart failure As per review of records the patient has a normal EF on an echocardiogram obtained on 2012. Chronic diastolic heart failure seem to be stable throughout hospitalization. CHUNG inhibitor was continued. (9) Hepatitis C Hepatitis c antibody reactive in 2012. Hepatitis C RNA viral load pending. 05/24 HIV antibody test negative. (10) Liver cirrhosis Most likely related to alcohol and hepatitis C. 05/22 AST and ALT within normal range. Follow-up as an outpatient with primary care physician. (11) Foot osteomyelitis, left Treated with IV antibiotics as mentioned above. sp first metatarsal resection Pain control with methadone IV morphine Patient with discharge with IV antibiotics for the patient to present to the infusion center. This was arranged by case hardener prior to discharge. (12) Low TSH level ICD Code: R94.6 - Abnormal results of thyroid function studies Status: Acute Plan: TSH level obtained on 05/20, low at 0.189. Will check free T4. Assessment and Plan DVT prophylaxis: SCDs, avoid chemoprophylaxis given anemia. Pt Condition on Discharge: Stable Discharge Disposition: Discharge Home Discharge Time: > 30 minutes Discharge Instructions DIET: Follow Instructions for: Diabetic Diet Activities you can perform: Weight Bearing as Jeny Activities to Avoid: Prolonged Standing, Strenuous Activity Follow up Referrals: Appointment for Follow Up @ [facility] @ [facility] with Clint Gomez DPM New Medications: Daptomycin Inj (Cubicin Inj) 500 Mg Bag 500 MG IV Q24H for Infection for 40 Days, BAG 0 Refills Must dilute in appropriate IV Fluid prior to administration Epinephrine Inj (Epinephrine Inj) 1 Mg/Ml (1 Ml) Inj 0.3 MG IV PUSH ONCE PRN for ALLERGIC REACTION, #1 VIAL Epinephrine Inj (Epinephrine Inj) 1 Mg/Ml (1 Ml) Inj 0.3 MG SQ ONCE PRN for ALLERGIC REACTION, #1 VIAL Give with any signs of respiratory distress. Hydrocortisone Inj (Solu-Cortef Inj) 250 Mg/2 Ml Inj 250 MG IV PUSH ONCE PRN for ALLERGIC REACTION, #1 VIAL 0 Refills Give over 30-60 seconds. Continued Medications: Amlodipine (Norvasc) 5 Mg Tab 5 MG PO DAILY for Blood Pressure Management, #30 TAB 11 Refills (This prescription has been renewed) Gabapentin (Gabapentin) 300 Mg Cap 300 MG PO Q8HR, #60 CAP 0 Refills Lisinopril (Lisinopril) 20 Mg Tab 20 MG PO DAILY for Blood Pressure Management, #30 TAB 0 Refills (This prescription has been renewed) Metformin (Metformin) 500 Mg Tab 500 MG PO BIDPC for Blood Sugar Management, #60 TAB 0 Refills Methadone (Methadone) 40 Mg Tab 220 MG PO DAILY, TAB 0 Refills Discontinued Medications: Ciprofloxacin (Cipro) 250 Mg Tab Unknown Dose PO BID for Infection, TAB 0 Refills Clindamycin (Clindamycin) 300 Mg Cap 300 MG PO for Infection, CAP 0 Refills Merritt Grigsby MD May 25, 2017 14:18
[2017-05-25] MEDS ORDERED: SODIUM CHLORIDE 0.9% FLUSH 10 ML FLUSH IV FLUSH PRN (16:30)
[2017-05-26] MEDS ORDERED: SODIUM CHLORIDE 0.9% FLUSH 10 ML FLUSH IV FLUSH SCH (09:00)
[2017-05-26] MEDS ORDERED: BACITRACIN TOP OINT 15 GM TUBE TOPICAL SCH (09:00)
[2017-05-27 10:47] LABS: HCV RNA PCR IU/ML LESS THAN 15 IU/mL (Not Detected)
== END 2017-05-25 18:35 | disposition home or self-care (01) | DRG 857 ==
LOC: NED 18:28 → NEDA 22:35 → NEDH 05-20 02:17 → N04B 05-20 14:29
PROVIDERS: ADMIT Hospitalist; ATTEND Hospitalist
PROC: 30233N1 Transfusion of Nonautologous Red Blood Cells into Peripheral Vein, Percutaneous Approach (ICD-10-PCS; 2017-05-20)
PROC: 0DB38ZX Excision of Lower Esophagus, Via Natural or Artificial Opening Endoscopic, Diagnostic (ICD-10-PCS; 2017-05-21)
PROC: 0DB78ZX Excision of Stomach, Pylorus, Via Natural or Artificial Opening Endoscopic, Diagnostic (ICD-10-PCS; 2017-05-21)
PROC: 0DJD8ZZ Inspection of Lower Intestinal Tract, Via Natural or Artificial Opening Endoscopic (ICD-10-PCS; 2017-05-21)
PROC: 0QBP0ZZ Excision of Left Metatarsal, Open Approach (ICD-10-PCS; principal; 2017-05-23 09:44)
DX: T81.4XXA Infection following a procedure, initial encounter (principal); I50.32 Chronic diastolic (congestive) heart failure; N17.9 Acute kidney failure, unspecified; I11.0 Hypertensive heart disease with heart failure; I95.9 Hypotension, unspecified; E11.42 Type 2 diabetes mellitus with diabetic polyneuropathy; M86.9 Osteomyelitis, unspecified; L03.116 Cellulitis of left lower limb; E11.628 Type 2 diabetes mellitus with other skin complications; K70.30 Alcoholic cirrhosis of liver without ascites; R63.4 Abnormal weight loss; F32.9 Major depressive disorder, single episode, unspecified; J44.9 Chronic obstructive pulmonary disease, unspecified; B19.20 Unspecified viral hepatitis C without hepatic coma; D50.9 Iron deficiency anemia, unspecified; K44.9 Diaphragmatic hernia without obstruction or gangrene; E11.69 Type 2 diabetes mellitus with other specified complication; B95.62 Methicillin resistant Staphylococcus aureus infection as the cause of diseases classified elsewhere; K20.9 Esophagitis, unspecified; K29.70 Gastritis, unspecified, without bleeding; K57.30 Diverticulosis of large intestine without perforation or abscess without bleeding; K64.8 Other hemorrhoids; E78.00 Pure hypercholesterolemia, unspecified; G47.30 Sleep apnea, unspecified; F41.9 Anxiety disorder, unspecified; M19.90 Unspecified osteoarthritis, unspecified site; Z59.0 Homelessness; Z87.891 Personal history of nicotine dependence; Z87.81 Personal history of (healed) traumatic fracture; Z79.84 Long term (current) use of oral hypoglycemic drugs; Z89.412 Acquired absence of left great toe
CPT/HCPCS: 36430; 36569; 71045; 73630; 73720; 74177; 76937; 80048; 80053; 80202; 82105; 82550; 82565; 82728; 82948; 83540; 83550; 83605; 83735; 84100; 84439; 84443; 85025; 85027; 85610; 85730; 86140; 86403; 86703; 86850; 86900; 86901; 86920; 87015; 87040; 87070; 87102; 87116; 87147; 87186; 87205; 87206; 87522; 87902; 88304; 88305; 88307; 88311; 88312; 94640; 94664; 96365; 96368; 96375; A9579; C9113; J1815; J2250; J2270; J2405; J2543; J3010; J3370; J7030; J7042; J7050; J7613; L3260; P9016; Q9963; Q9967

== ENCOUNTER 2017-09-25 11:09 | Inpatient (IN) ==
[2017-09-25] MEDS ORDERED: Vancomycin Inj 1 GM/200 ML PIGGYBACK IV.SIG ONE (11:52)
[2017-09-25] MEDS ORDERED: Piperacil/Tazo 4.5 GM Premix 4.5 GM/100 ML BAG IV.SIG ONE (11:52)
--- NOTE | 2017-09-25 11:58 | ED ---
HPI General Chief complaint: Skin/Abscess/Foreign Body Stated complaint: left foot injury Time Seen by Provider: 09/25/17 11:29 Source: patient Mode of arrival: wheelchair Limitations: no limitations History of Present Illness HPI narrative: 57-year-old male that presents to the ED for evaluation of possible infection to his left foot. 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 Patient has a history of diabetes. Patient does have a significant history of COPD, CHF and cirrhosis. He also is apparently homeless. Patient denies take any current antibiotics. Per patient he was recently admitted a month ago had an amputation of his left leg. Per patient he is noted to for the past 2 days has been having an area of redness and opening to his distal left second toe. Per patient his bone appears to be showing off. Patient denies any injury. Patient is wheelchair- bound for the most part. Denies any urinary or bowel movement issues. No chest pain or shortness of breath. No fevers chills or sweats. Patient is concerned that he has osteomyelitis again. Unclear if patient follows up outpatient. Per patient he does not follow with a automotive service management teacher in particular but has seen 3 different automotive service management teacher since the beginning of this year. Patient states his pain is 6 out of 10. Related Data Home Medications Medication Instructions Recorded Confirmed amlodipine 5 mg PO DAILY 08/28/17 09/25/17 gabapentin 300 mg PO Q8HR 08/28/17 09/25/17 lisinopril 10 mg PO DAILY 08/28/17 09/25/17 metformin 500 mg PO BIDPC 08/28/17 09/25/17 methadone 220 mg PO DAILY 08/28/17 09/25/17 Previous Rx's Medication Instructions Recorded clindamycin HCl [Cleocin HCl] 300 mg PO Q8H #30 cap 09/02/17 hydromorphone [Dilaudid] 4 mg PO Q6H PRN #12 tab 09/02/17 levofloxacin 500 mg PO DAILY #10 tab 09/02/17 Allergies Allergy/AdvReac Type Severity Reaction Status Date / Time codeine Allergy Severe NAUSEA Verified 09/13/17 21:08 Review of Systems ROS Unobtainable All other systems reviewed negative except as stated in HPI PMFSH History History Provided By: Patient Medical History Medical History Hip fracture (Acute) Cirrhosis of liver (Acute) COPD (chronic obstructive pulmonary disease) (Acute) CHF (congestive heart failure) (Acute) Hypertension (Acute) Diabetes (Acute) Osteomyelitis due to secondary diabetes (Acute) Hip fracture (Acute) Social History Social History Substance History: Past History Second Hand Smoke Exposure: No Smoking Status: Former smoker Tobacco Type: Cigarettes How Often Do You Have a Drink Containing Alcohol: Never Recent Travel in [facility] within the Last 8 Weeks: No Recent Out of Country Travel within the Last 8 Weeks: No Exam Narrative Exam Narrative: GENERAL: Well-appearing SKIN: Focused skin assessment warm/dry. HEAD: Atraumatic. Normocephalic. EYES: Pupils equal and round. No scleral icterus. No injection or drainage. ENT: No nasal bleeding or discharge. Mucous membranes pink and moist. NECK: Trachea midline. No JVD. CARDIOVASCULAR: Regular rate and rhythm. No murmur appreciated. RESPIRATORY: No accessory muscle use. Clear to auscultation. Breath sounds equal bilaterally. GASTROINTESTINAL: Abdomen soft, non-tender, nondistended. Hepatic and splenic margins not palpable. MUSCULOSKELETAL: No obvious deformities. No clubbing. No cyanosis. No edema. Patient has full range of motion of all extremities. Patient has obvious deformity what appears to be an opening with the bone showing on the left second toe. Tender to touch. Erythema noted. Almost appears to be like an ulcer forming in the distal toe. Sensation intact. 2+ pulses bilaterally. Patient does have multiple amputations and scars from previous surgeries. NEUROLOGICAL: Awake and alert. No obvious cranial nerve deficits. Motor grossly within normal limits. Normal speech. PSYCHIATRIC: Appropriate mood and affect; insight and judgment normal. Course Initial Documented Vital Signs Temperature 98.5 F 09/25/17 11:16 Pulse Rate 72 09/25/17 11:16 Respiratory Rate 16 09/25/17 11:16 Blood Pressure 109/53 L 09/25/17 11:16 Pulse Oximetry 98 09/25/17 11:16 Last Documented Vital Signs Temperature 98.5 F 09/25/17 11:16 Pulse Rate 52 L 09/25/17 13:01 Respiratory Rate 18 09/25/17 13:01 Blood Pressure 89/51 L 09/25/17 13:01 Pulse Oximetry 95 09/25/17 13:01 Medical Decision Making MDM Narrative Medical decision making narrative: 57-year-old male the presents to the ED for evaluation of possible osteomyelitis. Patient was properly examined and was found to have signs and symptoms consistent with appears to be possible osteo-. Bone does appear to be showing as there is a area of white hard mass showing. Almost looks like an ulcer has been present now the bone is exposed. Labs and imaging were ordered. Labs and imaging show what appears to be acute osteomyelitis. Elevated CRP and ESR. Case discussed with my attending who agrees with plan. Patient was admitted to the residents. Residents agreed to admission. Spoke with Dr. Crowley and who will book him for tomorrow. N.p.o. after midnight. Patient will start antibiotics. Apparently while I was taking care of another patient patient started complaining of some chest pain with exacerbation. Per patient has had this for some time. He does have a history of ACS and CHF. Labs were ordered. EKG did not show any sign of acute ST elevation. This was discussed with the residents who already taken over the case. Differential Diagnosis Differential Diagnosis: Cellulitis versus osteomyelitis versus ulcer versus failed outpatient treatment Medical Records Medical records reviewed: Yes I reviewed the patient's medical records. Lab Data Lab results reviewed: Yes I reviewed the patient's lab results. Lab results narrative: CRP and ESR highly elevated Result diagrams: 09/25/17 12:23 09/25/17 11:57 Lab Results 09/25/17 09/25/17 09/25/17 Range/Units 11:57 11:57 11:57 WBC (4.0-11.0) th/mm3 RBC (4.50-5.90) mil/mm3 Hgb (13.0-17.0) gm/dL Hct (39.0-51.0) % MCV (80.0-100.0) fL MCH (27.0-34.0) pg MCHC (32.0-36.0) % RDW (11.6-17.2) % Plt Count (150-450) th/mm3 MPV (7.0-11.0) fL Neut % (Auto) (16.0-70.0) % Lymph % (Auto) (9.0-44.0) % Bee % (Auto) (0.0-8.0) % Eos % (Auto) (0.0-4.0) % Baso % (Auto) (0.0-2.0) % Neut # (Auto) (1.8-7.7) th/mm3 Lymph # (Auto) (1.0-4.8) th/mm3 Bee # (Auto) (0.0-0.9) th/mm3 Eos # (Auto) (0.0-0.4) th/mm3 Baso # (Auto) (0.0-0.2) th/mm3 WBC Differential Differential Comment ESR (0-20) mm/hr Sodium 136 (136-145) meq/L Potassium 4.3 (3.5-5.1) meq/L Chloride 105 (98-107) meq/L Carbon Dioxide 26.7 (21.0-32.0) meq/L Anion Gap 4 L (5-15) meq/L BUN 23 H (7-18) mg/dL Creatinine 2.17 H (0.60-1.30) mg/dL Estimated GFR 31 L (>89) mL/min Random Glucose 81 (74-106) mg/dL Calcium 8.3 L (8.5-10.1) mg/dL Total Creatine Kinase 85 (39-308) U/L Troponin I Cancelled 0.03 C-Reactive Protein 3.92 H (0.00-0.30) mg/dL 09/25/17 09/25/17 Range/Units 12:23 12:23 WBC 8.0 (4.0-11.0) th/mm3 RBC 3.15 L (4.50-5.90) mil/mm3 Hgb 9.3 L (13.0-17.0) gm/dL Hct 27.8 L (39.0-51.0) % MCV 88.3 (80.0-100.0) fL MCH 29.6 (27.0-34.0) pg MCHC 33.6 (32.0-36.0) % RDW 14.3 (11.6-17.2) % Plt Count 235 D (150-450) th/mm3 MPV 7.7 (7.0-11.0) fL Neut % (Auto) 55.3 (16.0-70.0) % Lymph % (Auto) 31.5 (9.0-44.0) % Bee % (Auto) 8.9 H (0.0-8.0) % Eos % (Auto) 4.0 (0.0-4.0) % Baso % (Auto) 0.3 (0.0-2.0) % Neut # (Auto) 4.4 (1.8-7.7) th/mm3 Lymph # (Auto) 2.5 (1.0-4.8) th/mm3 Bee # (Auto) 0.7 (0.0-0.9) th/mm3 Eos # (Auto) 0.3 (0.0-0.4) th/mm3 Baso # (Auto) 0.0 (0.0-0.2) th/mm3 WBC Differential . Differential Comment Auto diff final ESR 79 H (0-20) mm/hr Sodium (136-145) meq/L Potassium (3.5-5.1) meq/L Chloride (98-107) meq/L Carbon Dioxide (21.0-32.0) meq/L Anion Gap (5-15) meq/L BUN (7-18) mg/dL Creatinine (0.60-1.30) mg/dL Estimated GFR (>89) mL/min Random Glucose (74-106) mg/dL Calcium (8.5-10.1) mg/dL Total Creatine Kinase (39-308) U/L Troponin I C-Reactive Protein (0.00-0.30) mg/dL Imaging Data Attestation: I personally reviewed and interpreted this imaging study as follows : Radiologist's impression: Foot X-Ray 09/25/17 11:32 CONCLUSION: Change in appearance of the stump of the fifth proximal metatarsal bone in addition to slight lucency of the second proximal phalanx towards the distal portion laterally. Possibility of osteomyelitis in both of these locations is not excluded and clinical correlation is suggested. Chest X-Ray 09/25/17 13:18 CONCLUSION: No acute cardiopulmonary disease. ECG Data EKG Prior to Arrival: No Attestation: I personally reviewed and interpreted this ECG as follows: Interpretation: EKG shows sinus bradycardia but no sign of acute ischemia read by me and attending. ND intervals are 151 ms. Discharge Plan Discharge Disposition Patient Disposition: 30 Still Patient Discharge Details Diagnosis: Osteomyelitis due to secondary diabetes Physicians Team ED Provider: Mani Lerma ED Midlevel Provider: Saurabh Gao Primary Care Provider: Primary Care Carlie Gutierrez Attending Provider: Gucci Grayson Discharge Interventions Interventions: Vital Signs Last Done: 09/25/17 13:01 Status ED Status: Admitted Patient
[2017-09-25] MEDS ORDERED: Vancomycin Inj 1,000 MG in Sodium Chlor 0.9% Inj 250 ML IV.SIG ONE (12:15)
[2017-09-25 12:25] LABS: C-Reactive Protein 3.92 mg/dL (0.00-0.30); Calcium 8.3 mg/dL (8.5-10.1); Carbon Dioxide 26.7 meq/L (21.0-32.0); Potassium 4.3 meq/L (3.5-5.1)
[2017-09-25] MEDS ORDERED: Sodium Chlor 0.9% Inj 500 ML IV.SIG ONE (12:27)
--- NOTE | 2017-09-25 12:34 | XR ---
EXAM DATE: 09/25/2017 12:14 PM EDT AGE/SEX: 57 years / Male INDICATIONS: Left foot pain and swelling. Pain near second digit. CLINICAL DATA: This is the patient's initial encounter. Patient reports that signs and symptoms have been present for 4 - 6 days and indicates a pain score of 8/10. MEDICAL/SURGICAL HISTORY: . Hypertension. Diabetes mellitus type 2. Hepatitis C. . Hemorrho idectomy. Tonsillectomy. Inguinal hernia repair. Lt first and fifth toe amputation. COMPARISON: [facility], FOOT COMPLETE LEFT 3V, 08/29/2017. . FINDINGS: Compared to the prior examination from 08/29/2017 the stump of the fifth proximal metatarsal bone appea rs irregular with tiny speck-like calcifications adjacent to it and a small approximate 3 to 4 mm bon y density avulsed from its towards the medial aspect. There are erosive changes at this site and poss ibility of osteomyelitis at this site is not excluded should be correlated clinically. There is also slight erosive changes involving the second proximal phalanx towards the lateral aspect distally not present previously. The rest of the examination has not changed. CONCLUSION: Change in appearance of the stump of the fifth proximal metatarsal bone in addition to slight lucency of the second proximal phalanx towards the distal portion laterally. Possibility of osteomyelitis in both of these locations is not excluded and clinical correlation is suggested. Electronically signed by: Francisco Javier Marley MD 09/25/2017 12:32 PM EDT
[2017-09-25 12:41] LABS: Baso % (Auto) 0.3 % (0.0-2.0); Eos # (Auto) 0.3 th/mm3 (0.0-0.4); Hematocrit 27.8 % (39.0-51.0); Hemoglobin 9.3 gm/dL (13.0-17.0); Lymph # (Auto) 2.5 th/mm3 (1.0-4.8); Lymph % (Auto) 31.5 % (9.0-44.0); Mean Corpuscular HGB Conc 33.6 % (32.0-36.0); Mean Corpuscular Hemoglobin 29.6 pg (27.0-34.0); Mean Corpuscular Volume 88.3 fL (80.0-100.0); Mean Platelet Volume 7.7 fL (7.0-11.0); Mono # (Auto) 0.7 th/mm3 (0.0-0.9); Mono % (Auto) 8.9 % (0.0-8.0); Neut # (Auto) 4.4 th/mm3 (1.8-7.7); Neut % (Auto) 55.3 % (16.0-70.0); Platelet Count 235 th/mm3 (150-450); Red Blood Count 3.15 mil/mm3 (4.50-5.90); Red Cell Distribution Width 14.3 % (11.6-17.2)
--- NOTE | 2017-09-25 13:32 | P.HPFP ---
Addendum entered and electronically signed by Iliana Matute MD, R1 09/25/17 18 :18: Physical exam did not save on previous note: GENERAL: Thin male lying in bed, agitated and restless. SKIN: Warm and dry. HEAD: Normocephalic. EYES: No injection or drainage. NECK: Supple, trachea midline. No JVD or lymphadenopathy. CARDIOVASCULAR: Regular rate and rhythm without murmurs, gallops, or rubs. RESPIRATORY: Breath sounds equal bilaterally. No accessory muscle use. GASTROINTESTINAL: Abdomen soft, non-tender, nondistended. No organomegaly MUSCULOSKELETAL: No cyanosis, or edema. BACK: Kyphotic Nontender. No CVA tenderness. Extremities: L foot with 3 toes. Erythema and swelling of remaining toes and foot. Draining ulcer of the second great toe. Purulent appearance. Ulceration beginning on lateral side of foot R foot- ulcer at the base of the 2nd toe, non draining, non erythematous. Ulcer on medial side of great toe. Original Note: History of Present Illness Primary Care Physician: No Primary Care Physician <Gucci Grayson - 09/25/17 21:48> No Primary Care Physician <Iliana Matute - 09/25/17 16:17> History of Present Illness: 57-year-old male who is currently homeless presenting to the emergency department with a 2 day history of redness, swelling, and drainage from the second toe of his left foot. 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 At his last hospitalization, he was discharged from the hospital with oral antibiotics of clindamycin and Levaquin to complete a 10 day course, however he never did take these antibiotics. He states that he was doing well until 2 days ago when he noticed swelling, drainage, and purulence from the second toe. He does endorse some pain, however he does have significant neuropathy in his feet. He denies any fevers or chills. He denies any nausea or vomiting, he denies any systemic symptoms. As noted above, he is homeless and does not have a primary care physician. He does have a history of diabetes mellitus for which he is only taking metformin and has never been on insulin. He also endorses some chest pain/pressure with minimal activity over the course of the last several months. This is been progressive. He does have a history of cocaine use, most recently 2 days ago per the patient. <Gucci Grayson 09/25/17 21:48> Mr Alva reports a 2 day history of redness in the second toe of his left foot. This morning he noted blood/pus spots on the sock this morning. He denies injury to the foot. Has had multiple amputations on the L foot. History of osteomyelitis. He does endorse mild nausea but denies any vomiting. Denies fevers/chills. He does not take his blood sugars regularly and does not know where they run. He does take metformin for diabetes control. He does endorse minimal chest pain on exertion. denies any shortness of breath, abdominal pain. Of note patient's last cocaine use was 2 days ago <Iliana Matute 09/25/17 17:44> - Diagnosis (1) Osteomyelitis (2) Chest pain (3) DANILO (acute kidney injury) (4) COPD (chronic obstructive pulmonary disease) (5) CHF (congestive heart failure) (6) Hypertension (7) History of substance abuse (8) Diabetes (9) Nutrition, metabolism, and development symptoms (10) Drug abuse <Gucci Grayson 09/25/17 21:48> (1) Osteomyelitis (2) Chest pain (3) DANILO (acute kidney injury) (4) COPD (chronic obstructive pulmonary disease) (5) CHF (congestive heart failure) (6) Hypertension (7) History of substance abuse (8) Diabetes (9) Nutrition, metabolism, and development symptoms <Iliana Matute 09/25/17 17:35> Inpatient Certification: I certify that the inpatient services were ordered in accordance with Medicare regulations governing the order. This includes certification that hospital inpatient services are reasonable and necessary and in the case of services not specified as inpatient-only under 42 CFR 419.22(n), that they are appropriately provided as inpatient services in accordance to with the 2-midnight benchmark under 43 CFR 412.3(e) <Gucci Grayson 09/25/17 21:48> I certify that the inpatient services were ordered in accordance with Medicare regulations governing the order. This includes certification that hospital inpatient services are reasonable and necessary and in the case of services not specified as inpatient-only under 42 CFR 419.22(n), that they are appropriately provided as inpatient services in accordance to with the 2-midnight benchmark under 43 CFR 412.3(e) <Iliana Matute 09/25/17 13:32> Review of Systems Constitutional: Denies chills, Denies fever(s), reports headache(s), reports fatigue Eyes: Denies blurry vision, reports change in vision, Ears, Nose, Mouth, and Throat: Denies nasal congestion, Denies nosebleed Denies sore throat Cardiovascular: Denies lightheadedness, reports chest pain, Denies fainting. Respiratory: Denies cough, Denies shortness of breath Gastrointestinal: Denies abdominal pain, Denies cramping, Denies black, tarry stools, reports bright, red blood in stools, reports nausea, Denies vomiting, Denies changes in bowel habits Genitourinary: Denies blood in urine, Denies painful urination, Denies urinary urgency, Denies urinary frequency Musculoskeletal: Denies body aches, reports joint pains, Denies muscle weakness Neurologic: Denies numbness, Denies tingling, Denies dizziness Psychiatric: Denies confusion, Denies anxiety, Denies depression Endocrine: Denies increased thirst, report increased urination, <Iliana Matute - 09/25/17 17:44> PMFSH - History History Provided By: Patient <Iliana Matute 09/25/17 13:32> - Medical History Medical History: Medical History (Last Updated 09/25/17 @ 15:50 by Iliana Matute MD, R1) Hip fracture (Acute) Cirrhosis of liver (Acute) COPD (chronic obstructive pulmonary disease) (Acute) CHF (congestive heart failure) (Acute) Hypertension (Acute) Diabetes (Acute) Osteomyelitis due to secondary diabetes (Acute) Amputated toe of left foot Hepatitis C Hip fracture <Gucci Grayson - 09/25/17 21:48> Medical History (Last Updated 09/25/17 @ 15:50 by Iliana Matute MD, R1) Hip fracture (Acute) Cirrhosis of liver (Acute) COPD (chronic obstructive pulmonary disease) (Acute) CHF (congestive heart failure) (Acute) Hypertension (Acute) Diabetes (Acute) Osteomyelitis due to secondary diabetes (Acute) Amputated toe of left foot Hepatitis C Hip fracture <Iliana Matute 09/25/17 16:17> - Surgical History Surgical History: Surgical History (Last Updated 09/25/17 @ 15:50 by Iliana Matute MD, R1) H/O hemorrhoidectomy Hx of tonsillectomy <KenanGucci buitrago 09/25/17 21:48> Surgical History (Last Updated 09/25/17 @ 15:50 by Iliana Matute MD, R1) H/O hemorrhoidectomy Hx of tonsillectomy <Iliana Matute 09/25/17 16:17> - Family History Family History: Family History (Last Updated 09/25/17 @ 15:50 by Iliana Matute MD, R1) Father MA (myocardial infarction) <Gucci Grayson 09/25/17 21:48> Family History (Last Updated 09/25/17 @ 15:50 by Iliana Matute MD, R1) Father MA (myocardial infarction) <Iliana Matute 09/25/17 16:17> - Tobacco History Second Hand Smoke Exposure: No <Iliana Matute 09/25/17 13:32> Tobacco Use In Past 30 Days: No <Iliana Matute 09/25/17 13:32> Smoking Status: Former smoker <Iliana Matute 09/25/17 13:32> Tobacco Type: Cigarettes <Iliana Matute 09/25/17 13:32> Packs Per Day: 1 <Iliana Matute 09/25/17 16:17> Years Smoked: 48 <Iliana Matute 09/25/17 16:17> - Alcohol History How Often Do You Have a Drink Containing Alcohol: Never (History of EtOH abuse, none in 14 years) <Iliana Matute 09/25/17 16:17> - Substance Use History Substance History: Active Abuse (Cocaine two days ago. ), Past History (On methadone 220 from [facility]) <Iliana Matute 09/25/17 16:17> - Travel History Recent Travel in the [facility] Within the Last 8 Weeks: No <Iliana Matute 13:32> Recent Travel Out of the Country Within the Last 8 Weeks: No <Iliana Matute - 09/25/17 13:32> - Immunization History Tetanus Immunization: <5 Years <Onesimo Matutejg Sumner - 09/25/17 13:32> Hx Influenza Vaccine This Season: No <Iliana Matute Taisha - 09/25/17 13:32> Medications and Allergies Allergies Allergy/AdvReac Type Severity Reaction Status Date / Time codeine Allergy Severe NAUSEA Verified 09/25/17 15:29 <Gucci Grayson - 09/25/17 21:48> Home Medications Medication Instructions Recorded Confirmed Type amlodipine 5 mg PO DAILY 08/28/17 09/25/17 History gabapentin 300 mg PO Q8HR 08/28/17 09/25/17 History lisinopril 10 mg PO DAILY 08/28/17 09/25/17 History metformin 500 mg PO BIDPC 08/28/17 09/25/17 History methadone 220 mg PO DAILY 08/28/17 09/25/17 History <Gucci Grayson - 09/25/17 21:48> Active Medications: Active Medications Albuterol (Duoneb Neb (Prn)) 1 ampul NEB Q15M PRN PRN Reason: SHORTNESS OF BREATH/WHEEZING Dextrose (D50w Vial) 50 ml IV.PUSH UNSCH PRN PRN Reason: PER HYPOGLYCEMIA PROTOCOL Gabapentin (Neurontin) 300 mg PO Q8HR [facility] Glucagon (Glucagon Inj) 1 mg OTHER PRN PRN PRN Reason: for Hypoglycemia Protocol Pharmacy Profile Note (Vancomycin Consult Pharmacy) 0 mls @ 0 mls/hr OTHER UNSCH [facility] Piperacillin/Tazobactam/Dextrose (Zosyn 2.25 Gm Premix) 50 mls @ 100 mls/hr IV.SIG Q6H [facility] Last Infusion: 09/25/17 19:41 Dose: Infused Vancomycin HCl 1,000 mg/ (Sodium Chloride) 250 mls @ 250 mls/hr IV.SIG Q24H [facility] Insulin Aspart (Novolog Insulin Correctional Sugar Inj) 0 unit SQ ACHS [facility]; Protocol Last Admin: 09/25/17 21:01 Dose: Not Given Sodium Chloride (Ns Flush) 2 ml IV.FLUSH BID [facility] Last Admin: 09/25/17 21:02 Dose: Not Given Sodium Chloride (Ns Flush) 2 ml IV.FLUSH UNSCH PRN PRN Reason: FLUSH AFTER USING IV ACCESS <Gucci Grayson - 09/25/17 21:48> Exam Vital signs: Vital Signs 09/25/17 11:16 09/25/17 13:01 09/25/17 15:34 Temperature 98.5 F Pulse Rate 72 52 L 53 L Respiratory Rate 16 18 18 Blood Pressure 109/53 L 89/51 L 82/50 L Pulse Oximetry 98 95 96 09/25/17 16:10 09/25/17 16:13 09/25/17 17:48 Temperature Pulse Rate Respiratory Rate Blood Pressure 80/50 L 80/50 L 78/48 L Pulse Oximetry 09/25/17 18:01 09/25/17 18:11 09/25/17 18:44 Temperature Pulse Rate 70 49 L 47 L Respiratory Rate 21 18 20 Blood Pressure 108/59 L 82/50 L 108/59 L Pulse Oximetry 97 09/25/17 21:00 09/25/17 21:33 Temperature Pulse Rate 50 L 52 L Respiratory Rate 14 16 Blood Pressure 77/50 L 92/54 L Pulse Oximetry 100 99 Intake & Output 09/25/17 09/25/17 09/26/17 06:59 18:59 06:59 Intake Total 50 / 50 Balance 50 / 50 Weight 65.771 kg Intake: IV 50 / 50 Zosyn 2.25 GM Premix 50 ML @ 50 / 50 100 mls/hr IV.SIG Q6H [facility] Rx#: [id number] <Gucci Grayson - 09/25/17 21:48> Vital Signs 09/25/17 11:16 09/25/17 13:01 Temperature 98.5 F Pulse Rate 72 52 L Respiratory Rate 16 18 Blood Pressure 109/53 L 89/51 L Pulse Oximetry 98 95 Intake & Output 09/24/17 09/25/17 09/25/17 18:59 06:59 18:59 Weight 65.771 kg <Iliana Matute - 09/25/17 13:32> Narrative: General: Thin, disheveled male lying in bed in no obvious distress Skin: Warm and dry and intact except for left foot as below HEENT: mucous membranes moist, PERRLA, cranial nerves II through XII intact CV: Regular rate and rhythm without murmurs Respiratory: Clear to auscultation bilaterally GI: Abdomen soft, nontender nondistended MSK: Left foot with great toe and fifth digit amputated. Second digit with distal phalanx amputated. Distal aspect of left toe stump erythematous with swelling and purulent drainage, appears to have some bone protruding. <Gucci Grayson - 09/25/17 21:48> Results - Labs Result diagrams: 09/25/17 12:23 09/25/17 11:57 <Gucci Grayson - 09/25/17 21:48> Abnormal lab results 09/25/17 09/25/17 09/25/17 Range/Units 11:57 12:23 12:23 RBC 3.15 L (4.50-5.90) mil/mm3 Hgb 9.3 L (13.0-17.0) gm/dL Hct 27.8 L (39.0-51.0) % [place] % (Auto) 8.9 H (0.0-8.0) % ESR 79 H (0-20) mm/hr Anion Gap 4 L (5-15) meq/L BUN 23 H (7-18) mg/dL Creatinine 2.17 H (0.60-1.30) mg/dL Estimated GFR 31 L (>89) mL/min Calcium 8.3 L (8.5-10.1) mg/dL C-Reactive Protein 3.92 H (0.00-0.30) mg/dL Urine Opiates Screen (Neg) U Benzodiazepines Scrn (Neg) Urine Cocaine Screen (Neg) 09/25/17 Range/Units 18:06 RBC (4.50-5.90) mil/mm3 Hgb (13.0-17.0) gm/dL Hct (39.0-51.0) % [place] % (Auto) (0.0-8.0) % ESR (0-20) mm/hr Anion Gap (5-15) meq/L BUN (7-18) mg/dL Creatinine (0.60-1.30) mg/dL Estimated GFR (>89) mL/min Calcium (8.5-10.1) mg/dL C-Reactive Protein (0.00-0.30) mg/dL Urine Opiates Screen Pos H (Neg) U Benzodiazepines Scrn Pos H (Neg) Urine Cocaine Screen Pos H (Neg) Short CBC 09/25/17 Range/Units 12:23 WBC 8.0 (4.0-11.0) th/mm3 Hgb 9.3 L (13.0-17.0) gm/dL Hct 27.8 L (39.0-51.0) % Plt Count 235 D (150-450) th/mm3 [facility] 09/25/17 11:57 Sodium 136 Potassium 4.3 Chloride 105 Carbon Dioxide 26.7 BUN 23 H Creatinine 2.17 H Calcium 8.3 L Cardiac Enzymes 09/25/17 09/25/17 Range/Units 11:57 11:57 Total Creatine Kinase 85 (39-308) U/L Troponin I Cancelled 0.03 <Gucci Grayson - 09/25/17 21:48> Abnormal lab results 09/25/17 09/25/17 09/25/17 Range/Units 11:57 12:23 12:23 RBC 3.15 L (4.50-5.90) mil/mm3 Hgb 9.3 L (13.0-17.0) gm/dL Hct 27.8 L (39.0-51.0) % [place] % (Auto) 8.9 H (0.0-8.0) % ESR 79 H (0-20) mm/hr Anion Gap 4 L (5-15) meq/L BUN 23 H (7-18) mg/dL Creatinine 2.17 H (0.60-1.30) mg/dL Estimated GFR 31 L (>89) mL/min Calcium 8.3 L (8.5-10.1) mg/dL C-Reactive Protein 3.92 H (0.00-0.30) mg/dL Short CBC 09/25/17 Range/Units 12:23 WBC 8.0 (4.0-11.0) th/mm3 Hgb 9.3 L (13.0-17.0) gm/dL Hct 27.8 L (39.0-51.0) % Plt Count 235 D (150-450) th/mm3 [facility] 09/25/17 11:57 Sodium 136 Potassium 4.3 Chloride 105 Carbon Dioxide 26.7 BUN 23 H Creatinine 2.17 H Calcium 8.3 L <Iliana Matute - 09/25/17 13:32> - Imaging Impressions Foot X-Ray 09/25/17 11:32 CONCLUSION: Change in appearance of the stump of the fifth proximal metatarsal bone in addition to slight lucency of the second proximal phalanx towards the distal portion laterally. Possibility of osteomyelitis in both of these locations is not excluded and clinical correlation is suggested. Chest X-Ray 09/25/17 13:18 CONCLUSION: No acute cardiopulmonary disease. Foot MRI 09/25/17 16:54 CONCLUSION: 1. Subtle marrow edema in the remaining proximal fifth metatarsal 2. Lack of intravenous contrast makes interpretation 3. Tagged white cell study may be of benefit. <Gucci Grayson - 09/25/17 21:48> Impressions Foot X-Ray 09/25/17 11:32 CONCLUSION: Change in appearance of the stump of the fifth proximal metatarsal bone in addition to slight lucency of the second proximal phalanx towards the distal portion laterally. Possibility of osteomyelitis in both of these locations is not excluded and clinical correlation is suggested. <Iliana Matute - 09/25/17 13:32> Caprini VTE Risk Assessment Caprini VTE Risk Assessment: No/Low Risk (score <= 1) <Iliana Matute - 17:44> Caprini Risk Assessment Model: Point Value = 1 Point Value = 2 Point Value = 3 Point Value = 5 Age 41-60 Minor surgery BMI > 25 kg/m2 Swollen legs Varicose veins or History of unexplained or recurrent spontaneous Oral contraceptives or hormone replacement Sepsis (< 1 month) Serious lung disease, including pneumonia (< 1 month) Abnormal pulmonary function Acute myocardial infarction Congestive heart failure (< 1 month) History of inflammatory bowel disease Medical patient at bed rest Age 61-74 Arthroscopic surgery Major open surgery (> 45 min) Laparoscopic surgery (> 45 min) Malignancy Confined to bed (> 72 hours) Immobilizing plaster cast Central venous access Age >= 75 History of VTE Family history of VTE Factor V Leiden Prothrombin [id number] Lupus anticoagulant Anticardiolipin antibodies Elevated serum homocysteine Heparin-induced thrombocytopenia Other congenital or acquired thrombophilia Stroke (< 1 month) Elective arthroplasty Hip, pelvis, or leg fracture Acute spinal cord injury (< 1 month) <Gucci Grayson 09/25/17 21:48> Point Value = 1 Point Value = 2 Point Value = 3 Point Value = 5 Age 41-60 Minor surgery BMI > 25 kg/m2 Swollen legs Varicose veins or History of unexplained or recurrent spontaneous Oral contraceptives or hormone replacement Sepsis (< 1 month) Serious lung disease, including pneumonia (< 1 month) Abnormal pulmonary function Acute myocardial infarction Congestive heart failure (< 1 month) History of inflammatory bowel disease Medical patient at bed rest Age 61-74 Arthroscopic surgery Major open surgery (> 45 min) Laparoscopic surgery (> 45 min) Malignancy Confined to bed (> 72 hours) Immobilizing plaster cast Central venous access Age >= 75 History of VTE Family history of VTE Factor V Leiden Prothrombin [id number] Lupus anticoagulant Anticardiolipin antibodies Elevated serum homocysteine Heparin-induced thrombocytopenia Other congenital or acquired thrombophilia Stroke (< 1 month) Elective arthroplasty Hip, pelvis, or leg fracture Acute spinal cord injury (< 1 month) <Iliana Matute - 09/25/17 17:44> Prophylaxis Regimen: Total Risk Factor Score Risk Level Prophylaxis Regimen 0-1 Low Early ambulation 2 Moderate Order ONE of the following: *Sequential Compression Device (SCD) *Heparin 5000 units SQ BID 3-4 Higher Order ONE of the following medications: *Heparin 5000 units SQ TID *Enoxaparin/Lovenox 40 mg SQ daily (WT < 150 kg, CrCl > 30 mL/min) *Enoxaparin/Lovenox 30 mg SQ daily (WT < 150 kg, CrCl > 10-29 mL/min) *Enoxaparin/Lovenox 30 mg SQ BID (WT < 150 kg, CrCl > 30 mL/min) AND/OR *Sequential Compression Device (SCD) 5 or more Highest Order ONE of the following medications: *Heparin 5000 units SQ TID (Preferred with Epidurals) *Enoxaparin/Lovenox 40 mg SQ daily (WT < 150 kg, CrCl > 30 mL/min) *Enoxaparin/Lovenox 30 mg SQ daily (WT < 150 kg, CrCl > 10-29 mL/min) *Enoxaparin/Lovenox 30 mg SQ BID (WT < 150 kg, CrCl > 30 mL/min) AND *Sequential Compression Device (SCD) <Gucci Grayson - 09/25/17 21:48> Total Risk Factor Score Risk Level Prophylaxis Regimen 0-1 Low Early ambulation 2 Moderate Order ONE of the following: *Sequential Compression Device (SCD) *Heparin 5000 units SQ BID 3-4 Higher Order ONE of the following medications: *Heparin 5000 units SQ TID *Enoxaparin/Lovenox 40 mg SQ daily (WT < 150 kg, CrCl > 30 mL/min) *Enoxaparin/Lovenox 30 mg SQ daily (WT < 150 kg, CrCl > 10-29 mL/min) *Enoxaparin/Lovenox 30 mg SQ BID (WT < 150 kg, CrCl > 30 mL/min) AND/OR *Sequential Compression Device (SCD) 5 or more Highest Order ONE of the following medications: *Heparin 5000 units SQ TID (Preferred with Epidurals) *Enoxaparin/Lovenox 40 mg SQ daily (WT < 150 kg, CrCl > 30 mL/min) *Enoxaparin/Lovenox 30 mg SQ daily (WT < 150 kg, CrCl > 10-29 mL/min) *Enoxaparin/Lovenox 30 mg SQ BID (WT < 150 kg, CrCl > 30 mL/min) AND *Sequential Compression Device (SCD) <Iliana Matute - 09/25/17 13:32> Assessment and Plan - Assessment (1) Osteomyelitis Code(s): M86.9 - Osteomyelitis, unspecified Status: Acute Plan: Recurrent osteomyelitis of stump of second digit on left foot -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 -Patient did not complete outpatient antibiotics for recent osteomyelitis hospitalization Blood cultures ordered and pending Wound culture of the second digit ordered and pending MRI of the left foot ordered podiatry consult ordered for further evaluation and possible amputation of left second digit Infectious disease consulted for osteomyelitis (2) Chest pain Code(s): R07.9 - Chest pain, unspecified Status: Acute Plan: Chest pain with minimal exertion recently with elevated troponin of 0.03 -Likely due to recent cocaine use as well as acute kidney injury Cycle cardiac troponins as well as EKGs Correct AK I with fluid hydration Monitor on telemetry (3) DANILO (acute kidney injury) Code(s): N17.9 - Acute kidney failure, unspecified Status: Acute Plan: Likely prerenal due to infection and acute illness -IV fluid hydration with normal saline -Repeat BMP tomorrow morning (4) COPD (chronic obstructive pulmonary disease) Code(s): J44.9 - Chronic obstructive pulmonary disease, unspecified Status: Acute Plan: Chronic: Duo nebs ordered as needed (5) CHF (congestive heart failure) Code(s): I50.9 - Heart failure, unspecified Status: Acute Plan: Most recent echocardiogram on file is from 01/17/2013 showing an ejection fraction of 60% -Amlodipine and lisinopril held as patient is currently hypotensive IV fluid hydration as above Continue to monitor for signs of fluid overload (6) Hypertension Code(s): I10 - Essential (primary) hypertension Status: Acute (7) History of substance abuse Code(s): Z87.898 - Personal history of other specified conditions Status: Acute (8) Diabetes Code(s): E11.9 - Type 2 diabetes mellitus without complications Status: Acute (9) Nutrition, metabolism, and development symptoms Code(s): R63.8 - Other symptoms and signs concerning food and fluid intake Status: Acute (10) Drug abuse Code(s): F19.10 - Other psychoactive substance abuse, uncomplicated Status: Acute Plan: Patient with a history of cocaine abuse and endorses recent cocaine use 2 days ago -Tox screen ordered -Monitor for signs of withdrawal <Gucci Grayson - 09/25/17 21:48> (1) Osteomyelitis Code(s): M86.9 - Osteomyelitis, unspecified Status: Acute Plan: Physical exam and x-ray of left foot indicates possible osteomyelitis. Patient is hypotensive at 82/50, afebrile, and bradycardic at 53. Blood cultures ordered Patient started on vancomycin and Zosyn to cover for cellulitis as well as osteomyelitis. Broad spectrum coverage for now. Patient given 1 L IV fluid bolus MRI of left foot ordered Podiatry, infectious disease consulted (2) Chest pain Code(s): R07.9 - Chest pain, unspecified Status: Acute Plan: Troponin 0.03. Patient admits to cocaine use 2 days ago. Patient not having active chest pain on exam. EKG showed no acute changes Continue to monitor (3) DANILO (acute kidney injury) Code(s): N17.9 - Acute kidney failure, unspecified Status: Acute Plan: -IV hydration normal saline bolus ordered -Patient's baseline creatinine appears to be around 1 (4) COPD (chronic obstructive pulmonary disease) Code(s): J44.9 - Chronic obstructive pulmonary disease, unspecified Status: Acute Plan: Duo nebs as needed (5) CHF (congestive heart failure) Code(s): I50.9 - Heart failure, unspecified Status: Acute Plan: Patient's amlodipine and lisinopril held for now patient is hypertensive Patient has no leg swelling or increased shortness of breath indicating acute exacerbation of heart failure Ejection fraction 60% and pulmonary pressures normal at last echo (01/17/13) Continue to monitor for shortness of breath as fluid boluses are given. Consider Lasix if patient begins to have difficulty breathing (6) Hypertension Code(s): I10 - Essential (primary) hypertension Status: Acute Plan: Hold home lisinopril and amlodipine for now as patient is hypotensive. (7) History of substance abuse Code(s): Z87.898 - Personal history of other specified conditions Status: Acute Plan: UDS ordered Call [facility] to confirm patient is receiving methadone (8) Diabetes Code(s): E11.9 - Type 2 diabetes mellitus without complications Status: Acute Plan: Sliding scale insulin Diabetic diet (9) Nutrition, metabolism, and development symptoms Code(s): R63.8 - Other symptoms and signs concerning food and fluid intake Status: Acute Plan: Diet: Diabetic Fluids: Bolus NS for BP DVT prophylaxis: SCD <Iliana Matute - 09/25/17 17:35> - Assessment and Plan Discussed Condition With: Cortez Grayson and Will <Iliana Matute - 09/25/17 16:17> <Iliana Matute - Last Filed: 09/25/17 17:35> (1) Osteomyelitis Qualifiers: Osteomyelitis type: unspecified type Osteomyelitis location: foot Laterality : left Qualified Code(s): M86.9 - Osteomyelitis, unspecified (8) Diabetes Qualifiers: Diabetes mellitus type: type 2 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 insulin use: without middle or intermediate school principal use Diabetes mellitus complication status: with other specified complication Qualified Code(s): E11.69 - Type 2 diabetes mellitus with other specified complication <Flory Grayson Last Filed: 09/25/17 21:48> (1) Osteomyelitis Qualifiers: Osteomyelitis type: unspecified type Osteomyelitis location: foot Laterality : left Qualified Code(s): M86.9 - Osteomyelitis, unspecified (8) Diabetes Qualifiers: Diabetes mellitus type: type 2 Diabetes mellitus care home insulin use: without middle or intermediate school principal use Diabetes mellitus complication status: with other specified complication Qualified Code(s): E11.69 - Type 2 diabetes mellitus with other specified complication <Iliana Matute E - Last Filed: 09/25/17 17:35> (1) Osteomyelitis Qualifiers: Osteomyelitis type: unspecified type Osteomyelitis location: foot Laterality : left Qualified Code(s): M86.9 - Osteomyelitis, unspecified (8) Diabetes Qualifiers: Diabetes mellitus type: type 2 Diabetes mellitus care home insulin use: without care home use Diabetes mellitus complication status: with other specified complication Qualified Code(s): E11.69 - Type 2 diabetes mellitus with other specified complication <Gucci Grayson Last Filed: 09/25/17 21:48> (1) Osteomyelitis Qualifiers: Osteomyelitis type: unspecified type Osteomyelitis location: foot Laterality : left Qualified Code(s): M86.9 - Osteomyelitis, unspecified (8) Diabetes Qualifiers: Diabetes mellitus type: type 2 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 insulin use: without care home use Diabetes mellitus complication status: with other specified complication Qualified Code(s): E11.69 - Type 2 diabetes mellitus with other specified complication
--- NOTE | 2017-09-25 13:37 | XR ---
EXAM DATE: 09/25/2017 1:33 PM EDT AGE/SEX: 57 years / Male INDICATIONS: Shortness of breath. CLINICAL DATA: This is the patient's initial encounter. Patient reports that signs and symptoms have been present for 1 month and indicates a pain score of 0/10. MEDICAL/SURGICAL HISTORY: . Hypertension. Diabetes mellitus type 2. Hepatitis C. . . Tonsil lectomy. Inguinal hernia repair. Lt first and fifth toe amputation. COMPARISON: C, CHEST 1V SINGLE AP, 09/13/2017. . FINDINGS: The lungs are clear without infiltrate, nodule, or mass. There is no appreciable pleural effusion for technique. Heart and mediastinum are unremarkable. CONCLUSION: No acute cardiopulmonary disease. Electronically signed by: Francisco Javier Marley MD 09/25/2017 1:36 PM EDT
[2017-09-25 13:48] LABS: Troponin I 0.03 ng/mL (0.02-0.05)
[2017-09-25] MEDS ORDERED: Vancomycin Consult Pharmacy 1 EACH OTHER SCH (15:31)
[2017-09-25] MEDS ORDERED: Dextrose 50% in Water 50 ML Vial IV.PUSH PRN (15:41)
[2017-09-25] MEDS ORDERED: Piperacil/Tazo 2.25 GM Premix 50 ML IV.SIG SCH (16:00)
[2017-09-25] MEDS ORDERED: Piperacil/Tazo 3.375 GM Premix 50 ML IV.SIG SCH (16:00)
[2017-09-25] MEDS ORDERED: Sod Chloride 0.9% Inj 1,000 ML IV.SIG ONE (16:00)
--- NOTE | 2017-09-25 17:03 | P.CONPOD ---
History of Present Illness Service: Podiatry Consult date: 09/25/17 Reason for Consult: Left foot infection Primary Care Provider: No Primary Care Physician Family Provider: No Primary Care Physician History of Present Illness: Patient states this all started when he fell asleep a long time ago by a heater , leading to partial amputations of the medial and lateral foot due to severe neuropathy. He has been noted to have bone exposed to distal left 2nd toe and his son told him he also had a wound open on the lateral foot. Review of Systems All other systems reviewed negative except as stated in HPI PMFSH - History History Provided By: Patient - Medical History Medical History: Medical History (Last Updated 09/25/17 @ 15:50 by Iliana Matute MD, R1) Hip fracture (Acute) Cirrhosis of liver (Acute) COPD (chronic obstructive pulmonary disease) (Acute) CHF (congestive heart failure) (Acute) Hypertension (Acute) Diabetes (Acute) Osteomyelitis due to secondary diabetes (Acute) Amputated toe of left foot Hepatitis C Hip fracture - Surgical History Surgical History: Surgical History (Last Updated 09/25/17 @ 15:50 by Iliana Matute MD, R1) H/O hemorrhoidectomy Hx of tonsillectomy - Family History Family History: Family History (Last Updated 09/25/17 @ 15:50 by Iliana Matute MD, R1) Father [place] (myocardial infarction) - Tobacco History Second Hand Smoke Exposure: No Tobacco Use In Past 30 Days: No Smoking Status: Former smoker Tobacco Type: Cigarettes Packs Per Day: 1 Years Smoked: 48 - Alcohol History How Often Do You Have a Drink Containing Alcohol: Never (History of EtOH abuse, none in 14 years) - Substance Use History Substance History: Active Abuse (Cocaine two days ago. ), Past History (On methadone 220 from [facility]) - Travel History Recent Travel in the [place] Within the Last 8 Weeks: No Recent Travel Out of the Country Within the Last 8 Weeks: No - Immunization History Tetanus Immunization: <5 Years Hx Influenza Vaccine This Season: No Medications and Allergies Active Medications: Active Medications Albuterol (Duoneb Neb (Prn)) 1 ampul NEB Q15M PRN PRN Reason: SHORTNESS OF BREATH/WHEEZING Dextrose (D50w Vial) 50 ml IV.PUSH UNSCH PRN PRN Reason: PER HYPOGLYCEMIA PROTOCOL Gabapentin (Neurontin) 300 mg PO Q8HR [facility] Glucagon (Glucagon Inj) 1 mg OTHER PRN PRN PRN Reason: for Hypoglycemia Protocol Pharmacy Profile Note (Vancomycin Consult Pharmacy) 0 mls @ 0 mls/hr OTHER UNSCH [facility] Piperacillin/Tazobactam/Dextrose (Zosyn 2.25 Gm Premix) 50 mls @ 100 mls/hr IV.SIG Q6H [facility] Vancomycin HCl 1,000 mg/ (Sodium Chloride) 250 mls @ 250 mls/hr IV.SIG Q24H [facility] Insulin Aspart (Novolog Insulin Correctional Sugar Inj) 0 unit SQ ACHS [facility]; Protocol Sodium Chloride (Ns Flush) 2 ml IV.FLUSH BID [facility] Sodium Chloride (Ns Flush) 2 ml IV.FLUSH UNSCH PRN PRN Reason: FLUSH AFTER USING IV ACCESS Allergies Allergy/AdvReac Type Severity Reaction Status Date / Time codeine Allergy Severe NAUSEA Verified 09/25/17 15:29 Home Medications Medication Instructions Recorded Confirmed Type amlodipine 5 mg PO DAILY 08/28/17 09/25/17 History gabapentin 300 mg PO Q8HR 08/28/17 09/25/17 History lisinopril 10 mg PO DAILY 08/28/17 09/25/17 History metformin 500 mg PO BIDPC 08/28/17 09/25/17 History methadone 220 mg PO DAILY 08/28/17 09/25/17 History Physical Exam Vital signs: Vital Signs 09/25/17 11:16 09/25/17 13:01 09/25/17 15:34 Temperature 98.5 F Pulse Rate 72 52 L 53 L Respiratory Rate 18 Blood Pressure 109/53 L 89/51 L 82/50 L Pulse Oximetry 98 95 96 09/25/17 16:10 09/25/17 16:13 Temperature Pulse Rate Respiratory Rate Blood Pressure 80/50 L 80/50 L Pulse Oximetry Intake & Output 09/24/17 09/25/17 09/25/17 18:59 06:59 18:59 Weight 65.771 kg Narrative: Left foot with distal 2nd digit with exposed bone present. No active purulence, but mild edema present, mild erythema locally to tissue around exposed bone. Lateral aspect of partial 5th ray amputation site, most proximal aspect of incision has open wound with fibrotic tissue. No tete purulence noted. No erythema/edema noted there. Palpable pedal pulses. Sensation absent. Results - Labs CBC & Chem 7: 09/25/17 12:23 09/25/17 11:57 Laboratory Results - last 24 hr 09/25/17 09/25/17 09/25/17 11:57 11:57 11:57 WBC RBC Hgb Hct MCV MCH MCHC RDW Plt Count MPV Neut % (Auto) Lymph % (Auto) [place] % (Auto) Eos % (Auto) Baso % (Auto) Neut # (Auto) Lymph # (Auto) [place] # (Auto) Eos # (Auto) Baso # (Auto) WBC Differential Differential Comment ESR Sodium 136 Potassium 4.3 Chloride 105 Carbon Dioxide 26.7 Anion Gap 4 L BUN 23 H Creatinine 2.17 H Estimated GFR 31 L Random Glucose 81 Calcium 8.3 L Total Creatine Kinase 85 Troponin I Cancelled 0.03 C-Reactive Protein 3.92 H 09/25/17 09/25/17 12:23 12:23 WBC 8.0 RBC 3.15 L Hgb 9.3 L Hct 27.8 L MCV 88.3 MCH 29.6 MCHC 33.6 RDW 14.3 Plt Count 235 D MPV 7.7 Neut % (Auto) 55.3 Lymph % (Auto) 31.5 [place] % (Auto) 8.9 H Eos % (Auto) 4.0 Baso % (Auto) 0.3 Neut # (Auto) 4.4 Lymph # (Auto) 2.5 [place] # (Auto) 0.7 Eos # (Auto) 0.3 Baso # (Auto) 0.0 WBC Differential . Differential Comment Auto diff final ESR 79 H Sodium Potassium Chloride Carbon Dioxide Anion Gap BUN Creatinine Estimated GFR Random Glucose Calcium Total Creatine Kinase Troponin I C-Reactive Protein Microbiology 09/25/17 11:57 Abscess - Foot Gram Stain - Final - Imaging Impressions Foot X-Ray 09/25/17 11:32 CONCLUSION: Change in appearance of the stump of the fifth proximal metatarsal bone in addition to slight lucency of the second proximal phalanx towards the distal portion laterally. Possibility of osteomyelitis in both of these locations is not excluded and clinical correlation is suggested. Chest X-Ray 09/25/17 13:18 CONCLUSION: No acute cardiopulmonary disease. MRI L foot pending. Assessment and Plan - Assessment (1) Osteomyelitis of ankle or foot, left, acute Code(s): M86.172 - Other acute osteomyelitis, left ankle and foot Status: Acute Plan: NPO after midnight Plan to OR for amputation left 2nd toe and bone biopsy left lateral foot with wound excision. Consent ordered. Discussed risks, benefits, complications of surgery and patient is agreeable to proceed.
[2017-09-25] MEDS ORDERED: Sod Chloride 0.9% Inj 500 ML IV.SIG ONE (18:06)
[2017-09-25 18:39] LABS: Amphetamine Screen,Urine Neg (Neg); Barbiturate Screen,Urine Neg (Neg); Cannabinoid Screen,Urine Neg (Neg); Cocaine Screen,Urine Pos (Neg)
[2017-09-25 18:41] LABS: Opiate Screen,Urine Pos (Neg)
[2017-09-25] MEDS: Piperacil/Tazo 2.25 GM Premix 50 ML IV.SIG SCH (18:55)
[2017-09-25] MEDS: Insulin NovoLOG Aspart Correctional Sugar Inj SQ SCH ×2 (19:00→21:01)
--- NOTE | 2017-09-25 20:35 | MR ---
EXAM DATE: 09/25/2017 8:27 PM EDT AGE/SEX: 57 years / Male INDICATIONS: Osteomyelitis. CLINICAL DATA: This is the patient's initial encounter. Patient reports that signs and symptoms have been present for 4 - 6 months and indicates a pain score of 0/10. MEDICAL/SURGICAL HISTORY: Diabetes mellitus type II. Hypertension. Cirrhosis. . Toe amputatio ns. COMPARISON: No prior exams available for comparison. TECHNIQUE: Multiplanar, multisequence MRI examination was performed without contrast. FINDINGS: Status post transmetatarsal amputation of the first and fifth digit. Moderate soft tissue swelling. The marrow signal in the first second third and fourth metatarsals hunter ears normal. There is subtle marrow edema in the remaining proximal fifth metatarsal. I don't see obvious osteomyelitis in the phalanges. Lack of intravenous contrast makes detection of subtle findings difficult. CONCLUSION: 1. Subtle marrow edema in the remaining proximal fifth metatarsal 2. Lack of intravenous contrast makes interpretation 3. Tagged white cell study may be of benefit. Electronically signed by: Gregory Montiel MD 09/25/2017 8:34 PM EDT
[2017-09-25] MEDS ORDERED: Vancomycin Inj 1,000 MG in Sodium Chlor 0.9% Inj 250 ML IV.SIG SCH (22:00)
[2017-09-25] MEDS: Gabapentin 300 MG Capsule PO SCH (22:31)
[2017-09-26] MEDS: Piperacil/Tazo 2.25 GM Premix 50 ML IV.SIG SCH ×4 (01:02→17:43)
[2017-09-26] MEDS ORDERED: Chlorhexidine Gluconate 2% 1 Pack (2 Cloths) TOPICAL PRN (04:00)
[2017-09-26] MEDS: Gabapentin 300 MG Capsule PO SCH ×3 (05:54→20:18)
[2017-09-26] MEDS: Chlorhexidine Gluconate 2% 1 Pack (2 Cloths) TOPICAL SCH (05:54)
[2017-09-26] MEDS: Insulin NovoLOG Aspart Correctional Sugar Inj SQ SCH ×4 (08:32→20:19)
--- NOTE | 2017-09-26 08:47 | P.CONID ---
History of Present Illness Service: Infectious disease Consult date: 09/26/17 Requesting Physician: Gucci Grayson Reason for Consult: Evaluate patient for possible osteomyelitis left foot Primary Care Provider: No Primary Care Physician Family Provider: No Primary Care Physician History of Present Illness: Patient seen and examined. Records reviewed. Patient is a 57-year-old male, presented to the hospital for further evaluation of his left foot. Patient has had several admissions for infection of his left foot. On 1 of his admission he had amputation of his left great toe and ray resection and this was back in April. He was supposed to get IV antibiotics until around May, but he only did 2 weeks because of problem with transportation. He got readmitted in July and at that time he had noticed redness swelling and wound on his left second toe. The amputation site on his left foot from his surgery back in April was completely healed. During his admission in July, he underwent partial amputation of his left second toe, and pathology showed that the margins were clear. He was discharged on oral antibiotics. Patient normally lives in a tent, and he has been trying to do wound care on his surgical incisions. About 2 days prior to admission, he did not like the look of his left second toe, so he presented to the hospital for further evaluation and treatment. He has not really had any documented fevers. No respiratory GI or any urinary complaints. Since admission he has not been febrile. His WBC is normal. ESR is elevated. His toxicology screen is positive for opiates, cocaine, and Infectious disease consultation has been requested to evaluate the patient. Review of Systems Constitutional: Denies chills, Denies fever(s) Eyes: Denies discharge, Denies dry eyes Ears, Nose, Mouth, and Throat: Denies ear pain, Denies facial pain, Denies mouth lesions, Denies nose pain, Denies pain with swallowing, Denies sore throat Cardiovascular: Denies chest pain, Denies shortness of breath Respiratory: Denies cough, Denies shortness of breath Gastrointestinal: Denies abdominal pain, Denies loose stools, Denies nausea, Denies pain with swallowing, Denies vomiting Genitourinary: Denies painful urination Musculoskeletal: Denies joint pain, Denies muscle weakness Neurologic: Reports tingling/numbness/burning sensations PMFSH - History History Provided By: Patient - Medical History Medical History: Medical History (Last Reviewed 09/26/17 @ 08:40 by Rosanne Fitzpatrick MD) Hip fracture (Acute) Cirrhosis of liver (Acute) COPD (chronic obstructive pulmonary disease) (Acute) CHF (congestive heart failure) (Acute) Hypertension (Acute) Diabetes (Acute) Osteomyelitis due to secondary diabetes (Acute) Amputated toe of left foot Hepatitis C Hip fracture - Surgical History Surgical History: Surgical History (Last Reviewed 09/26/17 @ 08:40 by Rosanne Fitzpatrick MD) H/O hemorrhoidectomy Hx of tonsillectomy - Family History Family History: Family History (Last Updated 09/25/17 @ 15:50 by Iliana Matute MD, R1) Father [place] (myocardial infarction) - Tobacco History Second Hand Smoke Exposure: No Tobacco Use In Past 30 Days: No Smoking Status: Former smoker Tobacco Type: Cigarettes Packs Per Day: 1 Years Smoked: 48 - Alcohol History How Often Do You Have a Drink Containing Alcohol: Never - Substance Use History Substance History: Active Abuse, Past History - Travel History Recent Travel in the [place] Within the Last 8 Weeks: No Recent Travel Out of the Country Within the Last 8 Weeks: No - Immunization History Tetanus Immunization: <5 Years Hx Influenza Vaccine This Season: No Medications and Allergies Active Medications: Active Medications Albuterol (Duoneb Neb (Prn)) 1 ampul NEB Q15M PRN PRN Reason: SHORTNESS OF BREATH/WHEEZING Chlorhexidine Gluconate (Chlorhexidine 2% Cloth) 3 pack TOPICAL DAILY@0400 [facility] Stop: 10/01/17 03:59 Last Admin: 09/26/17 05:54 Dose: 3 pack Chlorhexidine Gluconate (Chlorhexidine 2% Cloth) 3 pack TOPICAL DAILY@0400 PRN PRN Reason: Extra cloth needed Stop: 10/01/17 03:59 Dextrose (D50w Vial) 50 ml IV.PUSH UNSCH PRN PRN Reason: PER HYPOGLYCEMIA PROTOCOL Gabapentin (Neurontin) 300 mg PO Q12HR [facility] Last Admin: 09/26/17 08:27 Dose: 300 mg Glucagon (Glucagon Inj) 1 mg OTHER PRN PRN PRN Reason: for Hypoglycemia Protocol Pharmacy Profile Note (Vancomycin Consult Pharmacy) 0 mls @ 0 mls/hr OTHER UNSCH [facility] Piperacillin/Tazobactam/Dextrose (Zosyn 2.25 Gm Premix) 50 mls @ 100 mls/hr IV.SIG Q6H [facility] Last Infusion: 09/26/17 08:28 Dose: Infused Vancomycin HCl 1,000 mg/ (Sodium Chloride) 250 mls @ 250 mls/hr IV.SIG Q24H [facility] Insulin Aspart (Novolog Insulin Correctional Sugar Inj) 0 unit SQ ACHS [facility]; Protocol Last Admin: 09/26/17 08:32 Dose: Not Given Sodium Chloride (Ns Flush) 2 ml IV.FLUSH BID [facility] Last Admin: 09/26/17 08:28 Dose: 2 ml Sodium Chloride (Ns Flush) 2 ml IV.FLUSH UNSCH PRN PRN Reason: FLUSH AFTER USING IV ACCESS Allergies Allergy/AdvReac Type Severity Reaction Status Date / Time codeine Allergy Severe NAUSEA Verified 09/25/17 15:29 Home Medications Medication Instructions Recorded Confirmed Type amlodipine 5 mg PO DAILY 08/28/17 09/25/17 History gabapentin 300 mg PO Q8HR 08/28/17 09/25/17 History lisinopril 10 mg PO DAILY 08/28/17 09/25/17 History metformin 500 mg PO BIDPC 08/28/17 09/25/17 History methadone 220 mg PO DAILY 08/28/17 09/25/17 History Exam Vital signs: Vital Signs 09/25/17 11:16 09/25/17 13:01 09/25/17 15:34 Temperature 98.5 F Pulse Rate 72 52 L 53 L Respiratory Rate 16 18 18 Blood Pressure 109/53 L 89/51 L 82/50 L Pulse Oximetry 98 95 96 09/25/17 16:10 09/25/17 16:13 09/25/17 17:48 Temperature Pulse Rate Respiratory Rate Blood Pressure 80/50 L 80/50 L 78/48 L Pulse Oximetry 09/25/17 18:01 09/25/17 18:11 09/25/17 18:44 Temperature Pulse Rate 70 49 L 47 L Respiratory Rate 21 18 20 Blood Pressure 108/59 L 82/50 L 108/59 L Pulse Oximetry 97 09/25/17 21:00 09/25/17 21:33 09/26/17 00:12 Temperature 97.7 F Pulse Rate 50 L 52 L 63 Respiratory Rate 14 16 15 Blood Pressure 77/50 L 92/54 L 121/81 Pulse Oximetry 100 99 97 09/26/17 00:15 09/26/17 01:00 09/26/17 01:30 Temperature Pulse Rate 62 49 L 49 L Respiratory Rate 35 H 13 21 Blood Pressure 121/81 95/62 L 106/58 L Pulse Oximetry 97 100 09/26/17 02:00 09/26/17 02:01 09/26/17 02:30 Temperature Pulse Rate 66 60 48 L Respiratory Rate 40 H 14 10 L Blood Pressure 98/54 L 96/56 L Pulse Oximetry 93 L 85 L 98 09/26/17 03:00 09/26/17 03:12 09/26/17 03:36 Temperature Pulse Rate 49 L 47 L 48 L Respiratory Rate 14 15 13 Blood Pressure 101/58 L 95/53 L Pulse Oximetry 100 99 99 09/26/17 04:00 09/26/17 04:02 09/26/17 04:30 Temperature 97.6 F Pulse Rate 48 L 50 L 48 L Respiratory Rate 12 16 10 L Blood Pressure 114/58 L 114/58 L 104/60 Pulse Oximetry 99 97 98 09/26/17 05:00 09/26/17 05:16 09/26/17 05:44 Temperature Pulse Rate 47 L 48 L 45 L Respiratory Rate 19 13 10 L Blood Pressure 85/52 L 108/62 99/58 L Pulse Oximetry 98 100 97 09/26/17 06:00 Temperature Pulse Rate 48 L Respiratory Rate 21 Blood Pressure 99/57 L Pulse Oximetry 100 Intake & Output 09/25/17 09/26/17 09/26/17 18:59 06:59 18:59 Intake Total 110 / 110 50 / 50 Output Total 1320 / 1320 Balance -1210 / -1210 50 / 50 Weight 65.771 kg 64 kg Intake: IV 100 / 100 50 / 50 Zosyn 2.25 GM Premix 50 ML @ 100 / 100 50 / 50 100 mls/hr IV.SIG Q6H [facility] Rx#: [id number] Oral Output: Urine 1320 / 1320 Other: # Voids 2 Weight On Admission 64 kg Narrative: Physical Examination GENERAL: Patient is a well-nourished, well-developed male, awake and alert, not in respiratory distress. SKIN: Cool and dry. No generalized rash, no ecchymoses and no evidence of embolic lesions. HEAD: Atraumatic. Normocephalic. No temporal wasting, or tenderness. EYES: [place] conjunctiva. No petechia or hemorrhage. Pupils equal, round and reactive to light. Extraocular movements full and intact. No scleral icterus. No injection or drainage. EARS, NOSE AND THROAT: Nose without bleeding or purulent nasal discharge. No sinus tenderness. Mucous membranes pink and moist. No oral lesions noted. Poor dentition. NECK: Trachea midline. Supple and not tender, no meningeal signs CARDIOVASCULAR: Regular rate and rhythm. No murmurs, rubs or gallops heard RESPIRATORY: Clear to auscultation. Breath sounds equal bilaterally. No rales , wheezing or rhonchi ABDOMEN: Soft, non-tender, nondistended. Bowel sounds present and normoactive. No guarding. No rebound. No organomegaly. EXTREMITIES: No clubbing, cyanosis. L foot mild edema, and discoloration. Om Lateral aspect there is some dehiscence of the surgical incision, with some fibrous tissue, no purulence. L second toe has open area at tip with bone exposed, some swelling and pink color of that second toe. No odor noted. Well healed amputation on medial aspect of his L foot. No calf tenderness. Well perfused and warm. NEUROLOGICAL: Awake and alert. Cranial nerves grossly intact. Motor grossly within normal limits. PSYCHIATRIC: Normal affect, calm and cooperative. LINE: No evidence of infection Results - Labs CBC & Chem 7: 09/25/17 12:23 09/25/17 11:57 Labs: Laboratory Results - last 24 hr 09/25/17 09/25/17 09/25/17 11:57 11:57 11:57 WBC RBC Hgb Hct MCV MCH MCHC RDW Plt Count MPV Neut % (Auto) Lymph % (Auto) [place] % (Auto) Eos % (Auto) Baso % (Auto) Neut # (Auto) Lymph # (Auto) [place] # (Auto) Eos # (Auto) Baso # (Auto) WBC Differential Differential Comment ESR Sodium 136 Potassium 4.3 Chloride 105 Carbon Dioxide 26.7 Anion Gap 4 L BUN 23 H Creatinine 2.17 H Estimated GFR 31 L Random Glucose 81 Calcium 8.3 L Total Creatine Kinase 85 Troponin I Cancelled 0.03 C-Reactive Protein 3.92 H Nasal Screen MRSA (PCR) Urine Opiates Screen Ur Barbiturates Screen Ur Amphetamines Screen U Benzodiazepines Scrn Urine Cocaine Screen U Cannabinoids Screen 09/25/17 09/25/17 09/25/17 12:23 12:23 18:06 WBC 8.0 RBC 3.15 L Hgb 9.3 L Hct 27.8 L MCV 88.3 MCH 29.6 MCHC 33.6 RDW 14.3 Plt Count 235 D MPV 7.7 Neut % (Auto) 55.3 Lymph % (Auto) 31.5 [place] % (Auto) 8.9 H Eos % (Auto) 4.0 Baso % (Auto) 0.3 Neut # (Auto) 4.4 Lymph # (Auto) 2.5 [place] # (Auto) 0.7 Eos # (Auto) 0.3 Baso # (Auto) 0.0 WBC Differential . Differential Comment Auto diff final ESR 79 H Sodium Potassium Chloride Carbon Dioxide Anion Gap BUN Creatinine Estimated GFR Random Glucose Calcium Total Creatine Kinase Troponin I C-Reactive Protein Nasal Screen MRSA (PCR) Urine Opiates Screen Pos H Ur Barbiturates Screen Neg Ur Amphetamines Screen Neg U Benzodiazepines Scrn Pos H Urine Cocaine Screen Pos H U Cannabinoids Screen Neg 09/26/17 00:10 WBC RBC Hgb Hct MCV MCH MCHC RDW Plt Count MPV Neut % (Auto) Lymph % (Auto) [place] % (Auto) Eos % (Auto) Baso % (Auto) Neut # (Auto) Lymph # (Auto) [place] # (Auto) Eos # (Auto) Baso # (Auto) WBC Differential Differential Comment ESR Sodium Potassium Chloride Carbon Dioxide Anion Gap BUN Creatinine Estimated GFR Random Glucose Calcium Total Creatine Kinase Troponin I C-Reactive Protein Nasal Screen MRSA (PCR) Not detected Urine Opiates Screen Ur Barbiturates Screen Ur Amphetamines Screen U Benzodiazepines Scrn Urine Cocaine Screen U Cannabinoids Screen - Imaging Impressions Foot X-Ray 09/25/17 11:32 CONCLUSION: Change in appearance of the stump of the fifth proximal metatarsal bone in addition to slight lucency of the second proximal phalanx towards the distal portion laterally. Possibility of osteomyelitis in both of these locations is not excluded and clinical correlation is suggested. Chest X-Ray 09/25/17 13:18 CONCLUSION: No acute cardiopulmonary disease. Foot MRI 09/25/17 16:54 CONCLUSION: 1. Subtle marrow edema in the remaining proximal fifth metatarsal 2. Lack of intravenous contrast makes interpretation 3. Tagged white cell study may be of benefit. Assessment and Plan - Plan Impression Osteo L second toe Wound dehiscence lateral foot Previous MRSA infection L foot Renal insufficiency, etiology? DM Active polysubstance abuse, denies IVDU Recommendation For OR today Continue IV Vanco - pharmacy doing dosing Continue Zosyn Will determine course of treatment once work-up is completed I will follow along with you Thank you for this consultation D/W RN
[2017-09-26] MEDS ORDERED: Bupivacaine PF 0.5% Inj 30 ML Vial ONE (09:48)
--- NOTE | 2017-09-26 10:08 | P.PNFP ---
Subjective Interval history: Mr. Alva denies any overnight events. This morning he is requesting his methadone. He denies any further chest pain. He reports some hip and back pain. Denies difficulty breathing, nausea, vomiting, abdominal pain, leg pain, fevers, chills, diarrhea, dysuria. <GiovaniIliana koehler Taisha - 09/26/17 10:23> Results - Labs Result diagrams: 09/25/17 12:23 09/25/17 11:57 <Gucci Grayson - 09/26/17 11:39> Abnormal lab results 09/25/17 09/25/17 09/25/17 Range/Units 11:57 12:23 12:23 RBC 3.15 L (4.50-5.90) mil/mm3 Hgb 9.3 L (13.0-17.0) gm/dL Hct 27.8 L (39.0-51.0) % [place] % (Auto) 8.9 H (0.0-8.0) % ESR 79 H (0-20) mm/hr Anion Gap 4 L (5-15) meq/L BUN 23 H (7-18) mg/dL Creatinine 2.17 H (0.60-1.30) mg/dL Estimated GFR 31 L (>89) mL/min POC Glucose (68-110) mg/dl Calcium 8.3 L (8.5-10.1) mg/dL C-Reactive Protein 3.92 H (0.00-0.30) mg/dL Urine Opiates Screen (Neg) U Benzodiazepines Scrn (Neg) Urine Cocaine Screen (Neg) 09/25/17 09/26/17 09/26/17 Range/Units 18:06 08:32 10:49 RBC (4.50-5.90) mil/mm3 Hgb (13.0-17.0) gm/dL Hct (39.0-51.0) % [place] % (Auto) (0.0-8.0) % ESR (0-20) mm/hr Anion Gap (5-15) meq/L BUN (7-18) mg/dL Creatinine (0.60-1.30) mg/dL Estimated GFR (>89) mL/min POC Glucose 130 H 55 L (68-110) mg/dl Calcium (8.5-10.1) mg/dL C-Reactive Protein (0.00-0.30) mg/dL Urine Opiates Screen Pos H (Neg) U Benzodiazepines Scrn Pos H (Neg) Urine Cocaine Screen Pos H (Neg) 09/26/17 Range/Units 11:13 RBC (4.50-5.90) mil/mm3 Hgb (13.0-17.0) gm/dL Hct (39.0-51.0) % [place] % (Auto) (0.0-8.0) % ESR (0-20) mm/hr Anion Gap (5-15) meq/L BUN (7-18) mg/dL Creatinine (0.60-1.30) mg/dL Estimated GFR (>89) mL/min POC Glucose 127 H (68-110) mg/dl Calcium (8.5-10.1) mg/dL C-Reactive Protein (0.00-0.30) mg/dL Urine Opiates Screen (Neg) U Benzodiazepines Scrn (Neg) Urine Cocaine Screen (Neg) Short CBC 09/25/17 Range/Units 12:23 WBC 8.0 (4.0-11.0) th/mm3 Hgb 9.3 L (13.0-17.0) gm/dL Hct 27.8 L (39.0-51.0) % Plt Count 235 D (150-450) th/mm3 BMP 09/25/17 11:57 Sodium 136 Potassium 4.3 Chloride 105 Carbon Dioxide 26.7 BUN 23 H Creatinine 2.17 H Calcium 8.3 L Cardiac Enzymes 09/25/17 09/25/17 Range/Units 11:57 11:57 Total Creatine Kinase 85 (39-308) U/L Troponin I Cancelled 0.03 <Gucci Grayson - 09/26/17 11:39> Abnormal lab results 09/25/17 09/25/17 09/25/17 Range/Units 11:57 12:23 12:23 RBC 3.15 L (4.50-5.90) mil/mm3 Hgb 9.3 L (13.0-17.0) gm/dL Hct 27.8 L (39.0-51.0) % [place] % (Auto) 8.9 H (0.0-8.0) % ESR 79 H (0-20) mm/hr Anion Gap 4 L (5-15) meq/L BUN 23 H (7-18) mg/dL Creatinine 2.17 H (0.60-1.30) mg/dL Estimated GFR 31 L (>89) mL/min POC Glucose (68-110) mg/dl Calcium 8.3 L (8.5-10.1) mg/dL C-Reactive Protein 3.92 H (0.00-0.30) mg/dL Urine Opiates Screen (Neg) U Benzodiazepines Scrn (Neg) Urine Cocaine Screen (Neg) 09/25/17 09/26/17 Range/Units 18:06 08:32 RBC (4.50-5.90) mil/mm3 Hgb (13.0-17.0) gm/dL Hct (39.0-51.0) % [place] % (Auto) (0.0-8.0) % ESR (0-20) mm/hr Anion Gap (5-15) meq/L BUN (7-18) mg/dL Creatinine (0.60-1.30) mg/dL Estimated GFR (>89) mL/min POC Glucose 130 H (68-110) mg/dl Calcium (8.5-10.1) mg/dL C-Reactive Protein (0.00-0.30) mg/dL Urine Opiates Screen Pos H (Neg) U Benzodiazepines Scrn Pos H (Neg) Urine Cocaine Screen Pos H (Neg) Short CBC 09/25/17 Range/Units 12:23 WBC 8.0 (4.0-11.0) th/mm3 Hgb 9.3 L (13.0-17.0) gm/dL Hct 27.8 L (39.0-51.0) % Plt Count 235 D (150-450) th/mm3 BMP 09/25/17 11:57 Sodium 136 Potassium 4.3 Chloride 105 Carbon Dioxide 26.7 BUN 23 H Creatinine 2.17 H Calcium 8.3 L Cardiac Enzymes 09/25/17 09/25/17 Range/Units 11:57 11:57 Total Creatine Kinase 85 (39-308) U/L Troponin I Cancelled 0.03 <Iliana Matute - 09/26/17 10:08> - Imaging Impressions Foot X-Ray 09/25/17 11:32 CONCLUSION: Change in appearance of the stump of the fifth proximal metatarsal bone in addition to slight lucency of the second proximal phalanx towards the distal portion laterally. Possibility of osteomyelitis in both of these locations is not excluded and clinical correlation is suggested. Chest X-Ray 09/25/17 13:18 CONCLUSION: No acute cardiopulmonary disease. Foot MRI 09/25/17 16:54 CONCLUSION: 1. Subtle marrow edema in the remaining proximal fifth metatarsal 2. Lack of intravenous contrast makes interpretation 3. Tagged white cell study may be of benefit. Foot X-Ray 09/26/17 00:00 CONCLUSION: Interval amputation since the prior examination. <Gucci Grayson - 09/26/17 11:39> Impressions Foot X-Ray 09/25/17 11:32 CONCLUSION: Change in appearance of the stump of the fifth proximal metatarsal bone in addition to slight lucency of the second proximal phalanx towards the distal portion laterally. Possibility of osteomyelitis in both of these locations is not excluded and clinical correlation is suggested. Chest X-Ray 09/25/17 13:18 CONCLUSION: No acute cardiopulmonary disease. Foot MRI 09/25/17 16:54 CONCLUSION: 1. Subtle marrow edema in the remaining proximal fifth metatarsal 2. Lack of intravenous contrast makes interpretation 3. Tagged white cell study may be of benefit. <Iliana Matute - 09/26/17 10:08> Physical Exam Vital signs: Vital Signs 09/25/17 13:01 09/25/17 15:34 09/25/17 16:10 Temperature Pulse Rate 52 L 53 L Respiratory Rate 18 18 Blood Pressure 89/51 L 82/50 L 80/50 L Pulse Oximetry 95 96 09/25/17 16:13 09/25/17 17:48 09/25/17 18:01 Temperature Pulse Rate 70 Respiratory Rate 21 Blood Pressure 80/50 L 78/48 L 108/59 L Pulse Oximetry 09/25/17 18:11 09/25/17 18:44 09/25/17 21:00 Temperature Pulse Rate 49 L 47 L 50 L Respiratory Rate 18 20 14 Blood Pressure 82/50 L 108/59 L 77/50 L Pulse Oximetry 97 100 09/25/17 21:33 09/26/17 00:12 09/26/17 00:15 Temperature 97.7 F Pulse Rate 52 L 63 62 Respiratory Rate 16 15 35 H Blood Pressure 92/54 L 121/81 121/81 Pulse Oximetry 99 97 97 09/26/17 01:00 09/26/17 01:30 09/26/17 02:00 Temperature Pulse Rate 49 L 49 L 66 Respiratory Rate 13 21 40 H Blood Pressure 95/62 L 106/58 L Pulse Oximetry 100 93 L 09/26/17 02:01 09/26/17 02:30 09/26/17 03:00 Temperature Pulse Rate 60 48 L 49 L Respiratory Rate 14 10 L 14 Blood Pressure 98/54 L 96/56 L Pulse Oximetry 85 L 98 100 09/26/17 03:12 09/26/17 03:36 09/26/17 04:00 Temperature 97.6 F Pulse Rate 47 L 48 L 48 L Respiratory Rate 15 13 12 Blood Pressure 101/58 L 95/53 L 114/58 L Pulse Oximetry 99 99 99 09/26/17 04:02 09/26/17 04:30 09/26/17 05:00 Temperature Pulse Rate 50 L 48 L 47 L Respiratory Rate 16 10 L 19 Blood Pressure 114/58 L 104/60 85/52 L Pulse Oximetry 97 98 98 09/26/17 05:16 09/26/17 05:44 09/26/17 06:00 Temperature Pulse Rate 48 L 45 L 48 L Respiratory Rate 13 10 L 21 Blood Pressure 108/62 99/58 L 99/57 L Pulse Oximetry 100 97 100 09/26/17 06:31 09/26/17 07:00 09/26/17 07:01 Temperature Pulse Rate 43 L 48 L 48 L Respiratory Rate 11 L 15 16 Blood Pressure 90/54 L 102/56 L Pulse Oximetry 99 90 L 91 L 09/26/17 07:30 09/26/17 08:00 09/26/17 08:02 Temperature 97.5 F L Pulse Rate 45 L 56 L 52 L Respiratory Rate 12 16 13 Blood Pressure 114/55 L 115/56 L Pulse Oximetry 92 L 94 L 99 09/26/17 08:31 09/26/17 09:00 09/26/17 09:01 Temperature Pulse Rate 51 L 46 L 47 L Respiratory Rate 15 17 14 Blood Pressure 117/53 L 89/50 L Pulse Oximetry 98 98 94 L 09/26/17 09:20 09/26/17 10:43 09/26/17 10:45 Temperature 98.2 F 97.7 F Pulse Rate 46 L 53 L 51 L Respiratory Rate 16 20 18 Blood Pressure 95/53 L 91/56 L 92/58 L Pulse Oximetry 94 L 97 97 09/26/17 11:00 09/26/17 11:15 09/26/17 11:26 Temperature 97 F L Pulse Rate 52 L 49 L 52 L Respiratory Rate 17 15 12 Blood Pressure 100/55 L 88/53 L 99/54 L Pulse Oximetry 98 98 100 Intake & Output 09/25/17 09/26/17 09/26/17 18:59 06:59 18:59 Intake Total 110 / 110 50 / 50 Output Total 1320 / 1320 Balance -1210 / -1210 50 / 50 Weight 65.771 kg 64 kg Intake: IV 100 / 100 50 / 50 Zosyn 2.25 GM Premix 50 ML @ 100 / 100 50 / 50 100 mls/hr IV.SIG Q6H [facility] Rx#: [id number] Oral Output: Urine 1320 / 1320 Other: # Voids 2 Weight On Admission 64 kg <Gucci Grayson - 09/26/17 11:39> Vital Signs 09/25/17 11:16 09/25/17 13:01 09/25/17 15:34 Temperature 98.5 F Pulse Rate 72 52 L 53 L Respiratory Rate 16 18 18 Blood Pressure 109/53 L 89/51 L 82/50 L Pulse Oximetry 98 95 96 09/25/17 16:10 09/25/17 16:13 09/25/17 17:48 Temperature Pulse Rate Respiratory Rate Blood Pressure 80/50 L 80/50 L 78/48 L Pulse Oximetry 09/25/17 18:01 09/25/17 18:11 09/25/17 18:44 Temperature Pulse Rate 70 49 L 47 L Respiratory Rate 21 18 20 Blood Pressure 108/59 L 82/50 L 108/59 L Pulse Oximetry 97 09/25/17 21:00 09/25/17 21:33 09/26/17 00:12 Temperature 97.7 F Pulse Rate 50 L 52 L 63 Respiratory Rate 14 16 15 Blood Pressure 77/50 L 92/54 L 121/81 Pulse Oximetry 100 99 97 09/26/17 00:15 09/26/17 01:00 09/26/17 01:30 Temperature Pulse Rate 62 49 L 49 L Respiratory Rate 35 H 13 21 Blood Pressure 121/81 95/62 L 106/58 L Pulse Oximetry 97 100 09/26/17 02:00 09/26/17 02:01 09/26/17 02:30 Temperature Pulse Rate 66 60 48 L Respiratory Rate 40 H 14 10 L Blood Pressure 98/54 L 96/56 L Pulse Oximetry 93 L 85 L 98 09/26/17 03:00 09/26/17 03:12 09/26/17 03:36 Temperature Pulse Rate 49 L 47 L 48 L Respiratory Rate 14 15 13 Blood Pressure 101/58 L 95/53 L Pulse Oximetry 100 99 99 09/26/17 04:00 09/26/17 04:02 09/26/17 04:30 Temperature 97.6 F Pulse Rate 48 L 50 L 48 L Respiratory Rate 12 16 10 L Blood Pressure 114/58 L 114/58 L 104/60 Pulse Oximetry 99 97 98 09/26/17 05:00 09/26/17 05:16 09/26/17 05:44 Temperature Pulse Rate 47 L 48 L 45 L Respiratory Rate 19 13 10 L Blood Pressure 85/52 L 108/62 99/58 L Pulse Oximetry 98 100 97 09/26/17 06:00 09/26/17 09:20 Temperature 98.2 F Pulse Rate 48 L 46 L Respiratory Rate 21 16 Blood Pressure 99/57 L 95/53 L Pulse Oximetry 100 94 L Intake & Output 09/25/17 09/26/17 09/26/17 18:59 06:59 18:59 Intake Total 110 / 110 50 / 50 Output Total 1320 / 1320 Balance -1210 / -1210 50 / 50 Weight 65.771 kg 64 kg Intake: IV 100 / 100 50 / 50 Zosyn 2.25 GM Premix 50 ML @ 100 / 100 50 / 50 100 mls/hr IV.SIG Q6H [facility] Rx#: [id number] Oral Output: Urine 1320 / 1320 Other: # Voids 2 Weight On Admission 64 kg <Iliana Matute - 09/26/17 10:08> Narrative: GENERAL: Thin male lying in bed. SKIN: Warm and dry. HEAD: Normocephalic. EYES: No scleral icterus. No injection or drainage. NECK: Supple, trachea midline. No JVD or lymphadenopathy. CARDIOVASCULAR: Regular rate and rhythm without murmurs, gallops, or rubs. RESPIRATORY: Breath sounds equal bilaterally. No accessory muscle use. GASTROINTESTINAL: Abdomen soft, non-tender, nondistended. Normoactive bowel sounds MUSCULOSKELETAL: No cyanosis, or edema. BACK: Nontender kyphotic. No CVA tenderness. Extremities: No pain in calves on palpation. Ulceration on second toe on left foot. Edema, erythema and bone exposure. Stable from yesterday's exam. Healing incision lateral aspect of foot post irritation partially open <Iliana Matute - 09/26/17 10:23> Assessment and Plan - Assessment (1) Osteomyelitis Code(s): M86.9 - Osteomyelitis, unspecified Status: Acute (2) Chest pain Code(s): R07.9 - Chest pain, unspecified Status: Acute (3) DANILO (acute kidney injury) Code(s): N17.9 - Acute kidney failure, unspecified Status: Acute (4) COPD (chronic obstructive pulmonary disease) Code(s): J44.9 - Chronic obstructive pulmonary disease, unspecified Status: Acute (5) CHF (congestive heart failure) Code(s): I50.9 - Heart failure, unspecified Status: Acute (6) Hypertension Code(s): I10 - Essential (primary) hypertension Status: Acute (7) History of substance abuse Code(s): Z87.898 - Personal history of other specified conditions Status: Acute (8) Diabetes Code(s): E11.9 - Type 2 diabetes mellitus without complications Status: Acute (9) Drug abuse Code(s): F19.10 - Other psychoactive substance abuse, uncomplicated Status: Acute (10) Nutrition, metabolism, and development symptoms Code(s): R63.8 - Other symptoms and signs concerning food and fluid intake Status: Acute <Gucci Grayson - 09/26/17 11:39> (1) Osteomyelitis Code(s): M86.9 - Osteomyelitis, unspecified Status: Acute Plan: Recurrent osteomyelitis of stump of second digit on left foot -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 -Patient did not complete outpatient antibiotics for recent osteomyelitis hospitalization Patient on Zosyn 2.25 every 6 hours and vancomycin 1 g every 24 hours Blood cultures ordered and pending Wound culture of the second digit ordered and pending MRI of the left foot showed marrow edema of the fifth metatarsal podiatry consult ordered for further evaluation with plans for the OR this morning Infectious disease consulted for osteomyelitis (2) Chest pain Code(s): R07.9 - Chest pain, unspecified Status: Acute Plan: Chest pain with minimal exertion recently with elevated troponin of 0.03 -No active chest pain on exam -Likely due to recent cocaine use as well as acute kidney injury Correct DANILO with fluid hydration Monitor on telemetry (3) DANILO (acute kidney injury) Code(s): N17.9 - Acute kidney failure, unspecified Status: Acute Plan: Likely prerenal due to infection and acute illness. -IV fluid hydration with normal saline -Repeat BMP ordered for this morning but not but done prior to taking the patient to the OR -Repeat BMP tomorrow follow kidney function Patient's baseline creatinine around 1 (4) COPD (chronic obstructive pulmonary disease) Code(s): J44.9 - Chronic obstructive pulmonary disease, unspecified Status: Acute Plan: Chronic: Duo nebs ordered as needed (5) CHF (congestive heart failure) Code(s): I50.9 - Heart failure, unspecified Status: Acute Plan: Most recent echocardiogram on file is from 01/17/2013 showing an ejection fraction of 60% -No signs of acute exacerbation -Amlodipine and lisinopril held as patient is currently hypotensive IV fluid hydration as above Continue to monitor for signs of fluid overload (6) Hypertension Code(s): I10 - Essential (primary) hypertension Status: Acute Plan: Hold home lisinopril and amlodipine for now as patient is hypotensive. (7) History of substance abuse Code(s): Z87.898 - Personal history of other specified conditions Status: Acute Plan: UDS positive for opiates, benzodiazepines, cocaine Start patient's methadone to 20 mg per day Continue to monitor for signs of withdrawal (8) Diabetes Code(s): E11.9 - Type 2 diabetes mellitus without complications Status: Acute Plan: Sliding scale insulin Bedside blood glucose checks Diabetic diet (9) Drug abuse Code(s): F19.10 - Other psychoactive substance abuse, uncomplicated Status: Acute Plan: Patient with a history of cocaine abuse and endorses recent cocaine use 2 days ago -UDS positive for opiates, benzodiazepines, cocaine -Monitor for signs of withdrawal (10) Nutrition, metabolism, and development symptoms Code(s): R63.8 - Other symptoms and signs concerning food and fluid intake Status: Acute Plan: Diet: Diabetic, resume diet once patient returns from OR Fluids: Bolus NS for BP DVT prophylaxis: SCD <Iliana Matute - 09/26/17 10:09> - Assessment and Plan Discussed Condition With: Drs. Grayson and Nakul <Iliana Matute - 09/26/17 10:23> - Attending Attestation Patient examined independently from the resident physicians and case discussed with resident team I have read the above note and agree with the assessment/plan as discussed with me I was involved in all medical decision making for this patient Gucci Grayson MD <Gucci Grayson - 09/26/17 11:39> <Iliana Matute E - Last Filed: 09/26/17 10:09> (1) Osteomyelitis Qualifiers: Osteomyelitis type: unspecified type Osteomyelitis location: foot Laterality : left Qualified Code(s): M86.9 - Osteomyelitis, unspecified (8) Diabetes Qualifiers: Diabetes mellitus type: type 2 Diabetes mellitus long-term insulin use: without terminal clerk use Diabetes mellitus complication status: with other specified complication Qualified Code(s): E11.69 - Type 2 diabetes mellitus with other specified complication <Gucci Grayson - Last Filed: 09/26/17 11:39> (1) Osteomyelitis Qualifiers: Osteomyelitis type: unspecified type Osteomyelitis location: foot Laterality : left Qualified Code(s): M86.9 - Osteomyelitis, unspecified (8) Diabetes Qualifiers: Diabetes mellitus type: type 2 Diabetes mellitus long-term insulin use: without terminal clerk use Diabetes mellitus complication status: with other specified complication Qualified Code(s): E11.69 - Type 2 diabetes mellitus with other specified complication <Iliana Matute - Last Filed: 09/26/17 10:09> (1) Osteomyelitis Qualifiers: Osteomyelitis type: unspecified type Osteomyelitis location: foot Laterality : left Qualified Code(s): M86.9 - Osteomyelitis, unspecified (8) Diabetes Qualifiers: Diabetes mellitus type: type 2 Diabetes mellitus terminal clerk insulin use: without long-term use Diabetes mellitus complication status: with other specified complication Qualified Code(s): E11.69 - Type 2 diabetes mellitus with other specified complication <Gucci Grayson - Last Filed: 09/26/17 11:39> (1) Osteomyelitis Qualifiers: Osteomyelitis type: unspecified type Osteomyelitis location: foot Laterality : left Qualified Code(s): M86.9 - Osteomyelitis, unspecified (8) Diabetes Qualifiers: Diabetes mellitus type: type 2 Diabetes mellitus terminal clerk insulin use: without terminal clerk use Diabetes mellitus complication status: with other specified complication Qualified Code(s): E11.69 - Type 2 diabetes mellitus with other specified complication
--- NOTE | 2017-09-26 10:47 | P.BOP ---
- Preoperative Diagnosis (1) Chronic ulcer of left foot with necrosis of bone (2) Osteomyelitis of ankle or foot, left, acute - Postoperative Diagnosis (1) Chronic ulcer of left foot with necrosis of bone (2) Osteomyelitis of ankle or foot, left, acute Date of procedure: 09/26/17 Procedure: 1. amputation left 2nd toe with biopsy 2. excision of wound left lateral foot with bone biopsy Two semielliptical incisions made to disarticulate 2nd digit at MTP joint level. 2nd metatarsal head excised and sent with toe to pathology for biopsy. No necrotic tissue or purulence noted at this level. Culture taken. Irrigation and closure with 2-0 nylon suture. Wound excised to lateral foot level and underlying bone debrided with rongeur and bone biter. Biopsy sent from residual 5th metatarsal with wound. Culture sent and closure with 2-0 nylon after irrigation. No tourniquet utilized. Bled well intraoperatively. Nonweightbearing left foot in surgical shoe recommended. Await bone biopsy results Implants: n/a Anesthesia: MAC, local (20mL 0.5% marcaine plain) Surgeon: Robbie Serrano DPM [employer] Specialist: staff Estimated blood loss (mL): 20 Pathology: other (1. culture L 2nd toe wound. 2. culture L lateral foot. 3. Left 2nd toe and metatarsal head to pathology. 4. bone left residual 5th metatarsal for bone biopsy.) Condition: stable Disposition: PACU
[2017-09-26] MEDS ORDERED: Dextrose 50% in Water 50 ML Vial IV.PUSH ONE (11:15)
--- NOTE | 2017-09-26 11:18 | XR ---
EXAM DATE: 09/26/2017 11:11 AM EDT AGE/SEX: 57 years / Male INDICATIONS: Post surgery left foot CLINICAL DATA: This is the patient's subsequent encounter. Patient reports that signs and symptoms h ave been present for 2 days and indicates a pain score of Nonresponsive. MEDICAL/SURGICAL HISTORY: . Hypertension. Diabetes mellitus type 2. Hepatitis C. . . Hemorrhoi dectomy. Tonsillectomy. Inguinal hernia repair. Lt first and fifth toe amputation [place]PAR[place] [facility] [place] 3[place]25/2017. . FINDINGS: There is evidence for amputation of the fourth and fifth digits in addition to first digit. CONCLUSION: Interval amputation since the prior examination. Electronically signed by: Francisco Javier Marley MD 09/26/2017 11:16 AM EDT
[2017-09-26] MEDS ORDERED: Dextrose 50% in Water 50 ML Vial IV.PUSH PRN (11:30)
[2017-09-26] MEDS ORDERED: Lidocaine PF 1% Inj 5 ML Syringe INFILTRATN ONE (12:00)
[2017-09-26] MEDS ORDERED: Glycopyrrolate Inj 1 MG/5 ML Syringe IV.PUSH ONE (12:00)
[2017-09-26 12:55] LABS: Baso % (Auto) 0.6 % (0.0-2.0); Eos # (Auto) 0.3 th/mm3 (0.0-0.4); Hematocrit 29.1 % (39.0-51.0); Hemoglobin 9.6 gm/dL (13.0-17.0); Lymph # (Auto) 2.1 th/mm3 (1.0-4.8); Lymph % (Auto) 33.1 % (9.0-44.0); Mean Corpuscular Hemoglobin 29.6 pg (27.0-34.0); Mean Corpuscular Volume 89.7 fL (80.0-100.0); Mean Platelet Volume 8.3 fL (7.0-11.0); Mono # (Auto) 0.6 th/mm3 (0.0-0.9); Neut # (Auto) 3.3 th/mm3 (1.8-7.7); Neut % (Auto) 52.3 % (16.0-70.0); Platelet Count 220 th/mm3 (150-450); Red Blood Count 3.25 mil/mm3 (4.50-5.90); Red Cell Distribution Width 14.4 % (11.6-17.2); White Blood Count 6.4 th/mm3 (4.0-11.0)
[2017-09-26] MEDS ORDERED: Vancomycin Inj 1,000 MG in Sodium Chlor 0.9% Inj 250 ML IV.SIG SCH ×4 (13:00)
--- NOTE | 2017-09-26 14:37 | ECG ---
Date Performed: 09/25/2017 Time Performed: 13:30:25 PTAGE: 57 years EKG: SINUS BRADYCARDIA NONSPECIFIC T-WAVE ABNORMALITY Since previous tracing, no significant jeferson nge noted BORDERLINE ECG PREVIOUS TRACING : 09/13/2017 22.30 DOCTOR: Nicola Will Interpretating Date/Time 09/26/2017 14:36:24
[2017-09-26] MEDS: Methadone 10 MG Tablet PO SCH (16:11)
[2017-09-26 22:07] LABS: Calcium 8.3 mg/dL (8.5-10.1); Carbon Dioxide 27.3 meq/L (21.0-32.0); Potassium 5.1 meq/L (3.5-5.1)
[2017-09-26 22:09] LABS: Vancomycin,Random 19.1 Comment
[2017-09-27] MEDS: Piperacil/Tazo 2.25 GM Premix 50 ML IV.SIG SCH ×3 (00:43→11:22)
[2017-09-27] MEDS: Chlorhexidine Gluconate 2% 1 Pack (2 Cloths) TOPICAL SCH (04:12)
[2017-09-27 07:52] LABS: Hematocrit 28.4 % (39.0-51.0); Hemoglobin 9.4 gm/dL (13.0-17.0); Mean Corpuscular Hemoglobin 29.7 pg (27.0-34.0); Platelet Count 198 th/mm3 (150-450); Red Blood Count 3.16 mil/mm3 (4.50-5.90); Red Cell Distribution Width 14.5 % (11.6-17.2); White Blood Count 8.9 th/mm3 (4.0-11.0)
[2017-09-27 08:19] LABS: Calcium 8.9 mg/dL (8.5-10.1); Carbon Dioxide 28.9 meq/L (21.0-32.0); Potassium 5.7 meq/L (3.5-5.1)
[2017-09-27 08:22] LABS: Vancomycin,Random 13.7 Comment
[2017-09-27] MEDS: Gabapentin 300 MG Capsule PO SCH ×2 (09:11→22:22)
[2017-09-27] MEDS: Methadone 10 MG Tablet PO SCH (09:12)
[2017-09-27] MEDS: Insulin NovoLOG Aspart Correctional Sugar Inj SQ SCH ×2 (09:22→11:52)
[2017-09-27] MEDS ORDERED: Vancomycin Consult Pharmacy 1 EACH OTHER SCH (10:00)
--- NOTE | 2017-09-27 10:21 | P.PNFP ---
Subjective Interval history: Patient seen and examined today. Reports mild pain in his left foot. Denies nausea, vomiting, fever, chills, abdominal pain, chest pain, shortness of breath, lightheadedness, dizziness. Reports he is eating well. Denies changes in bowel or bladder habits. No other complaints today. <Delroy Solis - 09/27/17 10:21> Results - Labs Result diagrams: 09/27/17 07:29 09/27/17 07:29 <Gucci Grayson - 09/27/17 15:59> Abnormal lab results 09/26/17 09/26/17 09/27/17 Range/Units 17:46 21:04 07:29 RBC 3.16 L (4.50-5.90) mil/mm3 Hgb 9.4 L (13.0-17.0) gm/dL Hct 28.4 L (39.0-51.0) % Potassium (3.5-5.1) meq/L Chloride 108 H (98-107) meq/L Anion Gap 4 L (5-15) meq/L BUN 20 H (7-18) mg/dL Creatinine 1.54 H (0.60-1.30) mg/dL Estimated GFR 46 L (>89) mL/min POC Glucose 117 H (68-110) mg/dl Calcium 8.3 L (8.5-10.1) mg/dL 09/27/17 09/27/17 09/27/17 Range/Units 07:29 09:14 11:21 RBC (4.50-5.90) mil/mm3 Hgb (13.0-17.0) gm/dL Hct (39.0-51.0) % Potassium 5.7 H (3.5-5.1) meq/L Chloride 108 H (98-107) meq/L Anion Gap 4 L (5-15) meq/L BUN 19 H (7-18) mg/dL Creatinine 1.43 H (0.60-1.30) mg/dL Estimated GFR 51 L (>89) mL/min POC Glucose 212 H 287 H (68-110) mg/dl Calcium (8.5-10.1) mg/dL Short CBC 09/27/17 Range/Units 07:29 WBC 8.9 (4.0-11.0) th/mm3 Hgb 9.4 L (13.0-17.0) gm/dL Hct 28.4 L (39.0-51.0) % Plt Count 198 (150-450) th/mm3 BMP 09/26/17 09/27/17 21:04 07:29 Sodium 139 141 Potassium 5.1 D 5.7 H Chloride 108 H 108 H Carbon Dioxide 27.3 28.9 BUN 20 H 19 H Creatinine 1.54 H 1.43 H Calcium 8.3 L 8.9 <Flory Graysony - 09/27/17 15:59> Abnormal lab results 09/26/17 09/26/17 09/26/17 Range/Units 10:49 11:13 12:12 RBC (4.50-5.90) mil/mm3 Hgb (13.0-17.0) gm/dL Hct (39.0-51.0) % [place] % (Auto) (0.0-8.0) % Eos % (Auto) (0.0-4.0) % Potassium (3.5-5.1) meq/L Chloride (98-107) meq/L Anion Gap (5-15) meq/L BUN (7-18) mg/dL Creatinine (0.60-1.30) mg/dL Estimated GFR (>89) mL/min POC Glucose 55 L 127 H 130 H (68-110) mg/dl Calcium (8.5-10.1) mg/dL 09/26/17 09/26/17 09/26/17 Range/Units 12:21 17:46 21:04 RBC 3.25 L (4.50-5.90) mil/mm3 Hgb 9.6 L (13.0-17.0) gm/dL Hct 29.1 L (39.0-51.0) % [place] % (Auto) 9.0 H (0.0-8.0) % Eos % (Auto) 5.0 H (0.0-4.0) % Potassium (3.5-5.1) meq/L Chloride 108 H (98-107) meq/L Anion Gap 4 L (5-15) meq/L BUN 20 H (7-18) mg/dL Creatinine 1.54 H (0.60-1.30) mg/dL Estimated GFR 46 L (>89) mL/min POC Glucose 117 H (68-110) mg/dl Calcium 8.3 L (8.5-10.1) mg/dL 09/27/17 09/27/17 09/27/17 Range/Units 07:29 07:29 09:14 RBC 3.16 L (4.50-5.90) mil/mm3 Hgb 9.4 L (13.0-17.0) gm/dL Hct 28.4 L (39.0-51.0) % [place] % (Auto) (0.0-8.0) % Eos % (Auto) (0.0-4.0) % Potassium 5.7 H (3.5-5.1) meq/L Chloride 108 H (98-107) meq/L Anion Gap 4 L (5-15) meq/L BUN 19 H (7-18) mg/dL Creatinine 1.43 H (0.60-1.30) mg/dL Estimated GFR 51 L (>89) mL/min POC Glucose 212 H (68-110) mg/dl Calcium (8.5-10.1) mg/dL Short CBC 09/26/17 09/27/17 Range/Units 12:21 07:29 WBC 6.4 8.9 (4.0-11.0) th/mm3 Hgb 9.6 L 9.4 L (13.0-17.0) gm/dL Hct 29.1 L 28.4 L (39.0-51.0) % Plt Count 220 198 (150-450) th/mm3 BMP 09/26/17 09/27/17 21:04 07:29 Sodium 139 141 Potassium 5.1 D 5.7 H Chloride 108 H 108 H Carbon Dioxide 27.3 28.9 BUN 20 H 19 H Creatinine 1.54 H 1.43 H Calcium 8.3 L 8.9 <Delroy Solis - 09/27/17 10:21> - Imaging Impressions Foot X-Ray 09/26/17 00:00 CONCLUSION: Interval amputation since the prior examination. <Delroy Solis - 09/27/17 10:21> Physical Exam Vital signs: Vital Signs 09/26/17 16:00 09/26/17 16:22 09/26/17 16:30 Temperature 97.7 F Pulse Rate 42 L 45 L 44 L Respiratory Rate 12 12 10 L Blood Pressure 86/56 L 94/56 L 95/58 L Pulse Oximetry 99 88 L 95 09/26/17 17:00 09/26/17 17:30 09/26/17 18:00 Temperature Pulse Rate 42 L 42 L 44 L Respiratory Rate 9 L 11 L 11 L Blood Pressure 97/59 L 99/60 L 110/60 Pulse Oximetry 99 96 97 09/26/17 18:31 09/26/17 19:00 09/26/17 19:45 Temperature Pulse Rate 43 L 44 L 57 L Respiratory Rate 11 L 12 15 Blood Pressure 100/61 106/61 149/84 H Pulse Oximetry 98 87 L 09/26/17 20:00 09/26/17 21:00 09/26/17 21:28 Temperature 97.9 F Pulse Rate 54 L 56 L 51 L Respiratory Rate 9 L 15 13 Blood Pressure 149/84 H 98/54 L Pulse Oximetry 91 L 96 09/26/17 22:00 09/26/17 23:00 09/27/17 00:00 Temperature 98.0 F Pulse Rate 49 L 43 L 45 L Respiratory Rate 12 10 L 14 Blood Pressure 100/58 L 94/50 L 98/53 L Pulse Oximetry 96 99 96 09/27/17 01:00 09/27/17 01:01 09/27/17 02:00 Temperature Pulse Rate 44 L 44 L 49 L Respiratory Rate 20 12 10 L Blood Pressure 87/57 L 84/57 L Pulse Oximetry 94 L 96 95 09/27/17 03:00 09/27/17 04:00 09/27/17 05:00 Temperature Pulse Rate 50 L 48 L 45 L Respiratory Rate 13 15 16 Blood Pressure 98/64 L 98/56 L 88/55 L Pulse Oximetry 93 L 91 L 94 L 09/27/17 06:00 09/27/17 06:01 09/27/17 06:28 Temperature 98.4 F Pulse Rate 45 L 46 L 48 L Respiratory Rate 18 11 L 15 Blood Pressure 105/60 95/56 L Pulse Oximetry 94 L 95 91 L 09/27/17 07:00 09/27/17 08:00 09/27/17 08:01 Temperature 98.5 F 98.5 F Pulse Rate 47 L 44 L 44 L Respiratory Rate 16 16 12 Blood Pressure 114/63 88/62 L 88/62 L Pulse Oximetry 92 L 92 L 98 09/27/17 09:00 09/27/17 09:12 09/27/17 10:00 Temperature Pulse Rate 62 61 53 L Respiratory Rate 31 H 26 H 19 Blood Pressure 108/53 L Pulse Oximetry 92 L 88 L 96 09/27/17 10:01 09/27/17 11:00 09/27/17 11:01 Temperature Pulse Rate 53 L 71 68 Respiratory Rate 13 28 H 24 Blood Pressure 113/56 L 131/76 Pulse Oximetry 94 L 96 93 L 09/27/17 11:22 09/27/17 11:43 09/27/17 12:00 Temperature 98.5 F Pulse Rate 60 58 L Respiratory Rate 16 20 14 Blood Pressure 99/54 L Pulse Oximetry 93 L 09/27/17 13:00 Temperature Pulse Rate 57 L Respiratory Rate 12 Blood Pressure 105/58 L Pulse Oximetry 91 L Intake & Output 09/26/17 09/27/17 09/27/17 18:59 06:59 18:59 Intake Total 690 / 690 630 / 630 50 / 50 Output Total 200 / 200 1850 / 1850 Balance 490 / 490 -1220 / -1220 50 / 50 Weight 66 kg Intake: IV 100 / 100 150 / 150 50 / 50 Zosyn 2.25 GM Premix 50 ML @ 100 / 100 150 / 150 50 / 50 100 mls/hr IV.SIG Q6H COUNT INCLUDES [facility] Rx#: [id number] Oral 240 / 240 480 / 480 Anesthesia Amount 350 / 350 Output: Urine 200 / 200 1850 / 1850 Other: # Bowel Movements 0 <Gucci Grayson - 09/27/17 15:59> Vital Signs 09/26/17 10:43 09/26/17 10:45 09/26/17 11:00 Temperature 97.7 F Pulse Rate 53 L 51 L 52 L Respiratory Rate 20 18 17 Blood Pressure 91/56 L 92/58 L 100/55 L Pulse Oximetry 97 97 98 09/26/17 11:15 09/26/17 11:25 09/26/17 11:26 Temperature 97 F L Pulse Rate 49 L 52 L Respiratory Rate 15 12 Blood Pressure 88/53 L 99/54 L Pulse Oximetry 98 96 100 09/26/17 11:35 09/26/17 11:39 09/26/17 11:51 Temperature Pulse Rate 46 L 52 L 53 L Respiratory Rate 15 13 21 Blood Pressure 82/43 L 84/51 L Pulse Oximetry 85 L 92 L 09/26/17 12:00 09/26/17 12:01 09/26/17 12:30 Temperature 97.4 F L Pulse Rate 46 L 46 L 42 L Respiratory Rate 8 L 11 L 9 L Blood Pressure 97/53 L 85/50 L Pulse Oximetry 94 L 97 100 09/26/17 13:00 09/26/17 13:28 09/26/17 13:31 Temperature Pulse Rate 61 42 L 42 L Respiratory Rate 38 H 9 L 13 Blood Pressure 82/53 L 80/53 L Pulse Oximetry 78 L 97 97 09/26/17 13:57 09/26/17 14:00 09/26/17 14:10 Temperature Pulse Rate 51 L 44 L 41 L Respiratory Rate 24 8 L 13 Blood Pressure 90/51 L 88/55 L 81/51 L Pulse Oximetry 90 L 98 100 09/26/17 14:19 09/26/17 14:31 09/26/17 14:41 Temperature Pulse Rate 48 L 64 66 Respiratory Rate 21 27 H 29 H Blood Pressure 76/49 L 105/80 124/64 Pulse Oximetry 85 L 84 L 77 L 09/26/17 14:51 09/26/17 15:00 09/26/17 15:01 Temperature Pulse Rate 60 47 L 46 L Respiratory Rate 16 15 16 Blood Pressure 111/57 L 102/55 L Pulse Oximetry 90 L 83 L 90 L 09/26/17 15:10 09/26/17 15:20 09/26/17 15:30 Temperature Pulse Rate 46 L 44 L 44 L Respiratory Rate 8 L 9 L 11 L Blood Pressure 102/58 L 92/55 L 92/58 L Pulse Oximetry 94 L 91 L 94 L 09/26/17 15:40 09/26/17 15:51 09/26/17 16:00 Temperature 97.7 F Pulse Rate 43 L 43 L 42 L Respiratory Rate 12 11 L 12 Blood Pressure 80/50 L 94/54 L 86/56 L Pulse Oximetry 94 L 96 99 09/26/17 16:22 09/26/17 16:30 09/26/17 17:00 Temperature Pulse Rate 45 L 44 L 42 L Respiratory Rate 12 10 L 9 L Blood Pressure 94/56 L 95/58 L 97/59 L Pulse Oximetry 88 L 95 99 09/26/17 17:30 09/26/17 18:00 09/26/17 18:31 Temperature Pulse Rate 42 L 44 L 43 L Respiratory Rate 11 L 11 L 11 L Blood Pressure 99/60 L 110/60 100/61 Pulse Oximetry 96 97 98 09/26/17 19:00 09/26/17 19:45 09/26/17 20:00 Temperature 97.9 F Pulse Rate 44 L 57 L 54 L Respiratory Rate 12 15 9 L Blood Pressure 106/61 149/84 H 149/84 H Pulse Oximetry 87 L 91 L 09/26/17 21:00 09/26/17 21:28 09/26/17 22:00 Temperature Pulse Rate 56 L 51 L 49 L Respiratory Rate 15 13 12 Blood Pressure 98/54 L 100/58 L Pulse Oximetry 96 96 09/26/17 23:00 09/27/17 00:00 09/27/17 01:00 Temperature 98.0 F Pulse Rate 43 L 45 L 44 L Respiratory Rate 10 L 14 20 Blood Pressure 94/50 L 98/53 L Pulse Oximetry 99 96 94 L 09/27/17 01:01 09/27/17 02:00 09/27/17 03:00 Temperature Pulse Rate 44 L 49 L 50 L Respiratory Rate 12 10 L 13 Blood Pressure 87/57 L 84/57 L 98/64 L Pulse Oximetry 96 95 93 L 09/27/17 04:00 09/27/17 05:00 09/27/17 06:00 Temperature Pulse Rate 48 L 45 L 45 L Respiratory Rate 15 16 18 Blood Pressure 98/56 L 88/55 L Pulse Oximetry 91 L 94 L 94 L 09/27/17 06:01 09/27/17 06:28 09/27/17 07:00 Temperature 98.4 F Pulse Rate 46 L 48 L 47 L Respiratory Rate 11 L 15 16 Blood Pressure 105/60 95/56 L 114/63 Pulse Oximetry 95 91 L 92 L 09/27/17 08:00 09/27/17 08:01 09/27/17 09:00 Temperature 98.5 F 98.5 F Pulse Rate 44 L 44 L 62 Respiratory Rate 16 12 31 H Blood Pressure 88/62 L 88/62 L Pulse Oximetry 92 L 98 92 L 09/27/17 09:12 Temperature Pulse Rate 61 Respiratory Rate 26 H Blood Pressure 108/53 L Pulse Oximetry 88 L Intake & Output 09/26/17 09/27/17 09/27/17 18:59 06:59 18:59 Intake Total 690 / 690 580 / 580 Output Total 200 / 200 1850 / 1850 Balance 490 / 490 -1270 / -1270 Weight 66 kg Intake: IV 100 / 100 100 / 100 Zosyn 2.25 GM Premix 50 ML @ 100 / 100 100 / 100 100 mls/hr IV.SIG Q6H [facility] Rx#: [id number] Oral 240 / 240 480 / 480 Anesthesia Amount 350 / 350 Output: Urine 200 / 200 1850 / 1850 Other: # Bowel Movements 0 <Delroy Solis - 09/27/17 10:21> Narrative: GENERAL: Thin male lying in bed. SKIN: Warm and dry. HEAD: Normocephalic. EYES: No scleral icterus. No injection or drainage. NECK: Supple, trachea midline. No JVD or lymphadenopathy. CARDIOVASCULAR: Regular rate and rhythm without murmurs, gallops, or rubs. RESPIRATORY: Breath sounds equal bilaterally. No accessory muscle use. GASTROINTESTINAL: Abdomen soft, non-tender, nondistended. Normoactive bowel sounds MUSCULOSKELETAL: No cyanosis, or edema. BACK: Nontender kyphotic. No CVA tenderness. Extremities: No pain in calves on palpation. Left foot dressed and wrapped in Ayaan bandage, clean dry intact. <Delroy Solis A - 09/27/17 10:21> Assessment and Plan - Assessment (1) Osteomyelitis Code(s): M86.9 - Osteomyelitis, unspecified Status: Acute (2) Bacteremia Code(s): R78.81 - Bacteremia Status: Acute Plan: Patient with bacteremia found on blood cultures from 09/25/17 -Follow blood culture until speciation and susceptibilities finalized Repeat blood cultures today to verify clearance of bacteremia (3) Chest pain Code(s): R07.9 - Chest pain, unspecified Status: Acute (4) DANILO (acute kidney injury) Code(s): N17.9 - Acute kidney failure, unspecified Status: Acute (5) COPD (chronic obstructive pulmonary disease) Code(s): J44.9 - Chronic obstructive pulmonary disease, unspecified Status: Acute (6) CHF (congestive heart failure) Code(s): I50.9 - Heart failure, unspecified Status: Acute (7) Hypertension Code(s): I10 - Essential (primary) hypertension Status: Acute (8) History of substance abuse Code(s): Z87.898 - Personal history of other specified conditions Status: Acute (9) Diabetes Code(s): E11.9 - Type 2 diabetes mellitus without complications Status: Acute (10) Drug abuse Code(s): F19.10 - Other psychoactive substance abuse, uncomplicated Status: Acute (11) Nutrition, metabolism, and development symptoms Code(s): R63.8 - Other symptoms and signs concerning food and fluid intake Status: Acute <Gucci Grayson - 09/27/17 15:59> (1) Osteomyelitis Code(s): M86.9 - Osteomyelitis, unspecified Status: Acute Plan: Recurrent osteomyelitis of stump of second digit on left foot. 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 Patient did not complete outpatient antibiotics for recent osteomyelitis hospitalization. S/P lft 2nd toe amputation 09/26, with excision of left lateral foot wound and bone biopsy. -Patient on Zosyn 2.25 every 6 hours and vancomycin 1 g every 24 hours -Blood cultures preliminary issues pleomorphic gram-positive rods -Wound culture of the second digit ordered and pending -MRI of the left foot showed marrow edema of the fifth metatarsal -podiatry amputated left toe and excised left lateral foot wound on 09/26, follow -up recommendation -Infectious disease consulted for osteomyelitis, continue vancomycin and Zosyn (2) Chest pain Code(s): R07.9 - Chest pain, unspecified Status: Acute Plan: Chest pain with minimal exertion recently with elevated troponin of 0.03 -No active chest pain on exam -Likely due to recent cocaine use as well as acute kidney injury Correct DANILO with fluid hydration Monitor on telemetry (3) DANILO (acute kidney injury) Code(s): N17.9 - Acute kidney failure, unspecified Status: Acute Plan: Likely prerenal due to infection and acute illness. Improving -IV fluid hydration with normal saline -Repeat BMP ordered for this morning but not but done prior to taking the patient to the OR -Repeat BMP tomorrow follow kidney function Patient's baseline creatinine around 1 (4) COPD (chronic obstructive pulmonary disease) Code(s): J44.9 - Chronic obstructive pulmonary disease, unspecified Status: Acute Plan: Chronic: Duo nebs ordered as needed (5) CHF (congestive heart failure) Code(s): I50.9 - Heart failure, unspecified Status: Acute Plan: Most recent echocardiogram on file is from 01/17/2013 showing an ejection fraction of 60% -No signs of acute exacerbation -Amlodipine and lisinopril held as patient is currently hypotensive IV fluid hydration as above Continue to monitor for signs of fluid overload (6) Hypertension Code(s): I10 - Essential (primary) hypertension Status: Acute Plan: Hold home lisinopril and amlodipine for now as patient is hypotensive. (7) History of substance abuse Code(s): Z87.898 - Personal history of other specified conditions Status: Acute Plan: UDS positive for opiates, benzodiazepines, cocaine Start patient's methadone 220 mg per day Continue to monitor for signs of withdrawal (8) Diabetes Code(s): E11.9 - Type 2 diabetes mellitus without complications Status: Acute Plan: Sliding scale insulin Bedside blood glucose checks Diabetic diet (9) Drug abuse Code(s): F19.10 - Other psychoactive substance abuse, uncomplicated Status: Acute Plan: Patient with a history of cocaine abuse and endorses recent cocaine use 2 days ago -UDS positive for opiates, benzodiazepines, cocaine -Monitor for signs of withdrawal (10) Nutrition, metabolism, and development symptoms Code(s): R63.8 - Other symptoms and signs concerning food and fluid intake Status: Acute Plan: Diet: Diabetic diet Fluids: Bolus NS for BP DVT prophylaxis: SCD <Delroy Solis - 09/27/17 10:14> - Attending Attestation Patient examined and case discussed with resident physicians I have read the above note and agree with the assessment/plan as discussed with me I was involved in all medical decision making for this patient Gucci Grayson MD <Gucci Grayson - 09/27/17 15:59> <Delroy Solis Last Filed: 09/27/17 10:14> (1) Osteomyelitis Qualifiers: Osteomyelitis type: unspecified type Osteomyelitis location: foot Laterality : left Qualified Code(s): M86.9 - Osteomyelitis, unspecified (8) Diabetes Qualifiers: Diabetes mellitus type: type 2 Diabetes mellitus manager terminal insulin use: without intermediate use Diabetes mellitus complication status: with other specified complication Qualified Code(s): E11.69 - Type 2 diabetes mellitus with other specified complication <Gucci Grayson Last Filed: 09/27/17 15:59> (1) Osteomyelitis Qualifiers: Osteomyelitis type: unspecified type Osteomyelitis location: foot Laterality : left Qualified Code(s): M86.9 - Osteomyelitis, unspecified (9) Diabetes Qualifiers: Diabetes mellitus type: type 2 Diabetes mellitus intermediate insulin use: without intermediate use Diabetes mellitus complication status: with other specified complication Qualified Code(s): E11.69 - Type 2 diabetes mellitus with other specified complication <Delroy Solis - Last Filed: 09/27/17 10:14> (1) Osteomyelitis Qualifiers: Osteomyelitis type: unspecified type Osteomyelitis location: foot Laterality : left Qualified Code(s): M86.9 - Osteomyelitis, unspecified (8) Diabetes Qualifiers: Diabetes mellitus type: type 2 Diabetes mellitus intermediate insulin use: without manager terminal use Diabetes mellitus complication status: with other specified complication Qualified Code(s): E11.69 - Type 2 diabetes mellitus with other specified complication <Gucci Grayson Last Filed: 09/27/17 15:59> (1) Osteomyelitis Qualifiers: Osteomyelitis type: unspecified type Osteomyelitis location: foot Laterality : left Qualified Code(s): M86.9 - Osteomyelitis, unspecified (9) Diabetes Qualifiers: Diabetes mellitus type: type 2 Diabetes mellitus manager terminal insulin use: without intermediate use Diabetes mellitus complication status: with other specified complication Qualified Code(s): E11.69 - Type 2 diabetes mellitus with other specified complication
[2017-09-27] MEDS: Vancomycin Inj 1,250 MG in Sodium Chlor 0.9% Inj 250 ML IV.SIG SCH (12:35)
[2017-09-27] MEDS ORDERED: Vancomycin Inj 1,250 MG in Sodium Chlor 0.9% Inj 250 ML IV.SIG SCH (13:00)
[2017-09-27] MEDS ORDERED: Sodium Polystyrene Sulfonate/Sorbitol Liq 15 GM/60 ML UDC PO ONE (15:30)
--- NOTE | 2017-09-27 18:05 | P.PNPOD ---
Subjective Interval history: Patient seen bedside. Denies any nausea vomiting fevers or chills. Has no concerns at this time, is postop day 1. Denies any calf pain. Physical Exam Vital signs: Vital Signs 09/26/17 18:31 09/26/17 19:00 09/26/17 19:45 Temperature Pulse Rate 43 L 44 L 57 L Respiratory Rate 11 L 12 15 Blood Pressure 100/61 106/61 149/84 H Pulse Oximetry 98 87 L 09/26/17 20:00 09/26/17 21:00 09/26/17 21:28 Temperature 97.9 F Pulse Rate 54 L 56 L 51 L Respiratory Rate 9 L 15 13 Blood Pressure 149/84 H 98/54 L Pulse Oximetry 91 L 96 09/26/17 22:00 09/26/17 23:00 09/27/17 00:00 Temperature 98.0 F Pulse Rate 49 L 43 L 45 L Respiratory Rate 12 10 L 14 Blood Pressure 100/58 L 94/50 L 98/53 L Pulse Oximetry 96 99 96 09/27/17 01:00 09/27/17 01:01 09/27/17 02:00 Temperature Pulse Rate 44 L 44 L 49 L Respiratory Rate 20 12 10 L Blood Pressure 87/57 L 84/57 L Pulse Oximetry 94 L 96 95 09/27/17 03:00 09/27/17 04:00 09/27/17 05:00 Temperature Pulse Rate 50 L 48 L 45 L Respiratory Rate 13 15 16 Blood Pressure 98/64 L 98/56 L 88/55 L Pulse Oximetry 93 L 91 L 94 L 09/27/17 06:00 09/27/17 06:01 09/27/17 06:28 Temperature 98.4 F Pulse Rate 45 L 46 L 48 L Respiratory Rate 18 11 L 15 Blood Pressure 105/60 95/56 L Pulse Oximetry 94 L 95 91 L 09/27/17 07:00 09/27/17 08:00 09/27/17 08:01 Temperature 98.5 F 98.5 F Pulse Rate 47 L 44 L 44 L Respiratory Rate 16 16 12 Blood Pressure 114/63 88/62 L 88/62 L Pulse Oximetry 92 L 92 L 98 09/27/17 09:00 09/27/17 09:12 09/27/17 10:00 Temperature Pulse Rate 62 61 53 L Respiratory Rate 31 H 26 H 19 Blood Pressure 108/53 L Pulse Oximetry 92 L 88 L 96 09/27/17 10:01 09/27/17 11:00 09/27/17 11:01 Temperature Pulse Rate 53 L 71 68 Respiratory Rate 13 28 H 24 Blood Pressure 113/56 L 131/76 Pulse Oximetry 94 L 96 93 L 09/27/17 11:22 09/27/17 11:43 09/27/17 12:00 Temperature 98.5 F Pulse Rate 60 58 L Respiratory Rate 16 20 14 Blood Pressure 99/54 L Pulse Oximetry 93 L 09/27/17 13:00 09/27/17 14:00 09/27/17 15:00 Temperature Pulse Rate 57 L 53 L 52 L Respiratory Rate 12 11 L 15 Blood Pressure 105/58 L 87/56 L 99/58 L Pulse Oximetry 91 L 84 L 96 09/27/17 16:00 Temperature 98.5 F Pulse Rate 53 L Respiratory Rate 19 Blood Pressure 92/63 L Pulse Oximetry 91 L Intake & Output 09/26/17 09/27/17 09/27/17 18:59 06:59 18:59 Intake Total 690 / 690 630 / 630 50 / 50 Output Total 200 / 200 1850 / 1850 Balance 490 / 490 -1220 / -1220 50 / 50 Weight 66 kg Intake: IV 100 / 100 150 / 150 50 / 50 Zosyn 2.25 GM Premix 50 ML @ 100 / 100 150 / 150 50 / 50 100 mls/hr IV.SIG Q6H [facility] Rx#: [id number] Oral 240 / 240 480 / 480 Anesthesia Amount 350 / 350 Output: Urine 200 / 200 1850 / 1850 Other: # Bowel Movements 0 Narrative: Dressing the left foot clean dry and intact. No ascending erythema to ankle noted. No calf pain upon squeeze, negative Homans test. Right sub-2 metatarsal callus with possible underlying ulceration no surrounding erythema or drainage. Medications and Allergies Active Medications: Active Medications Albuterol (Duoneb Neb (Prn)) 1 ampul NEB Q15M PRN PRN Reason: SHORTNESS OF BREATH/WHEEZING Last Admin: 09/27/17 11:43 Dose: 1 ampul Chlorhexidine Gluconate (Chlorhexidine 2% Cloth) 3 pack TOPICAL DAILY@0400 [facility] Stop: 10/01/17 03:59 Last Admin: 09/27/17 04:12 Dose: 3 pack Chlorhexidine Gluconate (Chlorhexidine 2% Cloth) 3 pack TOPICAL DAILY@0400 PRN PRN Reason: Extra cloth needed Stop: 10/01/17 03:59 Dextrose (D50w Vial) 50 ml IV.PUSH UNSCH PRN PRN Reason: PER HYPOGLYCEMIA PROTOCOL Gabapentin (Neurontin) 300 mg PO Q12HR [facility] Last Admin: 09/27/17 09:11 Dose: 300 mg Glucagon (Glucagon Inj) 1 mg OTHER PRN PRN PRN Reason: for Hypoglycemia Protocol Piperacillin/Tazobactam/Dextrose (Zosyn 2.25 Gm Premix) 50 mls @ 100 mls/hr IV.SIG Q6H [facility] Last Infusion: 09/27/17 12:36 Dose: Infused Pharmacy Profile Note (Vancomycin Consult Pharmacy) 0 mls @ 0 mls/hr OTHER UNSCH [facility] Vancomycin HCl 1,250 mg/ (Sodium Chloride) 262.5 mls @ 262.5 mls/hr IV.SIG Q24H [facility] Last Admin: 09/27/17 12:35 Dose: 262.5 mls/hr Insulin Aspart (Novolog Insulin Correctional Sugar Inj) 0 unit SQ ACHS [facility]; Protocol Last Admin: 09/27/17 11:52 Dose: 5 unit Methadone HCl (Dolophine) 220 mg PO DAILY [facility] Last Admin: 09/27/17 09:12 Dose: 220 mg Miscellaneous Information ([facility] Lab Info) 0 each OTHER ONCE ONE Stop: 09/30/17 12:46 Sodium Chloride (Ns Flush) 2 ml IV.FLUSH BID [facility] Last Admin: 09/27/17 09:15 Dose: 2 ml Sodium Chloride (Ns Flush) 2 ml IV.FLUSH UNSCH PRN PRN Reason: FLUSH AFTER USING IV ACCESS Allergies Allergy/AdvReac Type Severity Reaction Status Date / Time codeine Allergy Severe NAUSEA Verified 09/25/17 15:29 Home Medications Medication Instructions Recorded Confirmed Type amlodipine 5 mg PO DAILY 08/28/17 09/25/17 History gabapentin 300 mg PO Q8HR 08/28/17 09/25/17 History lisinopril 10 mg PO DAILY 08/28/17 09/25/17 History metformin 500 mg PO BIDPC 08/28/17 09/25/17 History methadone 220 mg PO DAILY 08/28/17 09/25/17 History Results - Labs CBC & Chem 7: 09/27/17 07:29 09/27/17 07:29 Laboratory Results - last 24 hr 09/26/17 09/26/17 09/27/17 20:04 21:04 07:29 WBC 8.9 RBC 3.16 L Hgb 9.4 L Hct 28.4 L MCV 90.0 MCH 29.7 MCHC 33.0 RDW 14.5 Plt Count 198 MPV 8.0 Sodium 139 Potassium 5.1 D Chloride 108 H Carbon Dioxide 27.3 Anion Gap 4 L BUN 20 H Creatinine 1.54 H Estimated GFR 46 L POC Glucose 103 Random Glucose 77 Calcium 8.3 L Random Vancomycin 19.1 09/27/17 09/27/17 09/27/17 07:29 09:14 11:21 WBC RBC Hgb Hct MCV MCH MCHC RDW Plt Count MPV Sodium 141 Potassium 5.7 H Chloride 108 H Carbon Dioxide 28.9 Anion Gap 4 L BUN 19 H Creatinine 1.43 H Estimated GFR 51 L POC Glucose 212 H 287 H Random Glucose 78 Calcium 8.9 Random Vancomycin 13.7 Microbiology 09/25/17 11:57 Blood - Peripheral Aerobic Blood Culture - Preliminary pleomorphic gram positive rods 09/25/17 11:57 Blood - Peripheral Anaerobic Blood Culture - Preliminary No growth in 2 days 09/25/17 12:02 Blood - Peripheral Aerobic Blood Culture - Final Corynebacterium not JK 09/25/17 12:02 Blood - Peripheral Anaerobic Blood Culture - Preliminary No growth in 2 days 09/26/17 10:30 Wound - Foot Gram Stain - Final 09/26/17 10:30 Wound - Foot Wound Culture - Preliminary 09/26/17 10:30 Wound - Foot Acid Fast Bacilli Smear - Final No acid fast bacilli seen 09/26/17 10:30 Wound - Toe Acid Fast Bacilli Smear - Final No acid fast bacilli seen 09/25/17 11:57 Abscess - Foot Gram Stain - Final 09/25/17 11:57 Abscess - Foot Wound Culture - Preliminary S. aureus MRSA Group D Enterococcus 09/26/17 10:30 Wound - Foot Fungal Smear - Final No fungal elements seen 09/26/17 10:30 Wound - Toe Fungal Smear - Final No fungal elements seen 09/26/17 10:30 Wound - Toe Gram Stain - Final Assessment and Plan - Assessment (1) Osteomyelitis of ankle or foot, left, acute Code(s): M86.172 - Other acute osteomyelitis, left ankle and foot Status: Acute - Plan 57-year-old male one day status post surgical intervention by Dr. Serrano date of surgery 09/26 Procedures performed: 1. amputation left 2nd toe with biopsy 2. excision of wound left lateral foot with bone biopsy Patient examined evaluated with all questions answered Perform dressing change tomorrow We will perform bedside debridement of right foot lesion please have supplies bedside, will place nursing Continue with heel weightbearing to left foot Will await OR pathology and micro
[2017-09-28] MEDS: Insulin NovoLOG Aspart Correctional Sugar Inj SQ SCH ×7 (01:18→20:14)
[2017-09-28 05:40] LABS: Baso % (Auto) 0.3 % (0.0-2.0); Eos # (Auto) 0.3 th/mm3 (0.0-0.4); Eos % (Auto) 3.7 % (0.0-4.0); Hematocrit 26.6 % (39.0-51.0); Hemoglobin 8.7 gm/dL (13.0-17.0); Lymph # (Auto) 2.2 th/mm3 (1.0-4.8); Lymph % (Auto) 29.2 % (9.0-44.0); Mean Corpuscular HGB Conc 32.7 % (32.0-36.0); Mean Corpuscular Hemoglobin 28.9 pg (27.0-34.0); Mean Corpuscular Volume 88.4 fL (80.0-100.0); Mean Platelet Volume 8.2 fL (7.0-11.0); Mono # (Auto) 0.6 th/mm3 (0.0-0.9); Mono % (Auto) 8.2 % (0.0-8.0); Neut # (Auto) 4.4 th/mm3 (1.8-7.7); Neut % (Auto) 58.6 % (16.0-70.0); Platelet Count 185 th/mm3 (150-450); Red Blood Count 3.01 mil/mm3 (4.50-5.90); Red Cell Distribution Width 14.3 % (11.6-17.2); White Blood Count 7.5 th/mm3 (4.0-11.0)
[2017-09-28] MEDS: Piperacil/Tazo 2.25 GM Premix 50 ML IV.SIG SCH ×5 (05:45→17:36)
[2017-09-28 06:16] LABS: Calcium 8.5 mg/dL (8.5-10.1); Carbon Dioxide 31.3 meq/L (21.0-32.0); Potassium 4.5 meq/L (3.5-5.1)
[2017-09-28] MEDS: Chlorhexidine Gluconate 2% 1 Pack (2 Cloths) TOPICAL SCH (06:28)
[2017-09-28] MEDS: Methadone 10 MG Tablet PO SCH (08:51)
--- NOTE | 2017-09-28 09:13 | P.PNFP ---
Addendum entered and electronically signed by Delroy Solis MD, R2 10:51: Patient reports some chest pain this morning. It has been present for several months, however he is unsure if it may have changed. He woke up with it last night, but said "it may have been because I had a nightmare." Denies N/V, left arm or jaw pain, palpitations, SOB, lightheadedness, dizziness, change in vision , sour taste in mouth. We will follow up an EKG and Troponin Original Note: Subjective Interval history: Patient seen and examined this morning. Denies nausea, vomiting, fever, chills, abdominal pain, shortness of breath, lightheadedness, dizziness, arm or jaw pain. Notes some mild pain in his left foot. <Delroy Solis - 09/28/17 09:12> Results - Labs Result diagrams: 09/28/17 04:40 09/28/17 04:40 <Gucci Grayson - 09/28/17 19:26> Abnormal lab results 09/28/17 09/28/17 Range/Units 04:40 04:40 RBC 3.01 L (4.50-5.90) mil/mm3 Hgb 8.7 L (13.0-17.0) gm/dL Hct 26.6 L (39.0-51.0) % [place] % (Auto) 8.2 H (0.0-8.0) % Anion Gap 4 L (5-15) meq/L BUN 20 H (7-18) mg/dL Estimated GFR 60 L (>89) mL/min Short CBC 09/28/17 Range/Units 04:40 WBC 7.5 (4.0-11.0) th/mm3 Hgb 8.7 L (13.0-17.0) gm/dL Hct 26.6 L (39.0-51.0) % Plt Count 185 (150-450) th/mm3 BMP 09/28/17 04:40 Sodium 140 Potassium 4.5 D Chloride 105 Carbon Dioxide 31.3 BUN 20 H Creatinine 1.23 Calcium 8.5 Cardiac Enzymes 09/28/17 Range/Units 10:55 Troponin I 0.03 (0.02-0.05) ng/mL <Gucci Grayson - 09/28/17 19:26> Abnormal lab results 09/27/17 09/27/17 09/28/17 Range/Units 09:14 11:21 04:40 RBC 3.01 L (4.50-5.90) mil/mm3 Hgb 8.7 L (13.0-17.0) gm/dL Hct 26.6 L (39.0-51.0) % [place] % (Auto) 8.2 H (0.0-8.0) % Anion Gap (5-15) meq/L BUN (7-18) mg/dL Estimated GFR (>89) mL/min POC Glucose 212 H 287 H (68-110) mg/dl 09/28/17 Range/Units 04:40 RBC (4.50-5.90) mil/mm3 Hgb (13.0-17.0) gm/dL Hct (39.0-51.0) % [place] % (Auto) (0.0-8.0) % Anion Gap 4 L (5-15) meq/L BUN 20 H (7-18) mg/dL Estimated GFR 60 L (>89) mL/min POC Glucose (68-110) mg/dl Short CBC 09/28/17 Range/Units 04:40 WBC 7.5 (4.0-11.0) th/mm3 Hgb 8.7 L (13.0-17.0) gm/dL Hct 26.6 L (39.0-51.0) % Plt Count 185 (150-450) th/mm3 BMP 09/28/17 04:40 Sodium 140 Potassium 4.5 D Chloride 105 Carbon Dioxide 31.3 BUN 20 H Creatinine 1.23 Calcium 8.5 <Delroy Solis - 09/28/17 09:12> Physical Exam Vital signs: Vital Signs 09/27/17 20:00 09/28/17 00:00 09/28/17 04:00 Temperature 98 F 98.4 F 98.1 F Pulse Rate 51 L 52 L 49 L Respiratory Rate 20 22 20 Blood Pressure 89/59 L 117/59 L 114/55 L Pulse Oximetry 100 99 98 09/28/17 08:00 09/28/17 12:00 09/28/17 16:00 Temperature 98.3 F 98.3 F 93.3 F L Pulse Rate 57 L 54 L 46 L Respiratory Rate 20 20 Blood Pressure 132/61 Pulse Oximetry 98 Intake & Output 09/28/17 09/28/17 09/29/17 06:59 18:59 06:59 Intake Total 1600 / 1600 2280 / 2280 Output Total 1999 2950 / 2950 Balance -400 / -400 -670 / -670 Weight 64.5 kg Intake: IV 100 / 100 50 / 50 Zosyn 2.25 GM Premix 50 ML @ 100 / 100 50 / 50 100 mls/hr IV.SIG Q6H [facility] Rx#: [id number] Oral 1400 / 1400 1780 / 1780 Anesthesia Amount 350 / 350 Other 100 / 100 100 / 100 Output: Urine 1999 2950 / 2950 Other: # Voids 3 Date of Last Bowel Movement 09/28/17 # Bowel Movements 0 0 <Gucci Grayson - 09/28/17 19:26> Vital Signs 09/27/17 09:12 09/27/17 10:00 09/27/17 10:01 Temperature Pulse Rate 61 53 L 53 L Respiratory Rate 26 H 19 13 Blood Pressure 108/53 L 113/56 L Pulse Oximetry 88 L 96 94 L 09/27/17 11:00 09/27/17 11:01 09/27/17 11:22 Temperature Pulse Rate 71 68 Respiratory Rate 28 H 24 16 Blood Pressure 131/76 Pulse Oximetry 96 93 L 09/27/17 11:43 09/27/17 12:00 09/27/17 13:00 Temperature 98.5 F Pulse Rate 60 58 L 57 L Respiratory Rate 20 14 12 Blood Pressure 99/54 L 105/58 L Pulse Oximetry 93 L 91 L 09/27/17 14:00 09/27/17 15:00 09/27/17 16:00 Temperature 98.5 F Pulse Rate 53 L 52 L 53 L Respiratory Rate 11 L 15 19 Blood Pressure 87/56 L 99/58 L 92/63 L Pulse Oximetry 84 L 96 91 L 09/27/17 17:00 09/27/17 17:01 09/27/17 18:00 Temperature Pulse Rate 51 L 55 L 52 L Respiratory Rate 11 L 24 19 Blood Pressure 105/61 Pulse Oximetry 94 L 85 L 91 L 09/27/17 18:01 09/27/17 20:00 09/28/17 00:00 Temperature 98 F 98.4 F Pulse Rate 51 L 51 L 52 L Respiratory Rate 24 20 22 Blood Pressure 88/48 L 89/59 L 117/59 L Pulse Oximetry 99 100 99 09/28/17 04:00 Temperature 98.1 F Pulse Rate 49 L Respiratory Rate 20 Blood Pressure 114/55 L Pulse Oximetry 98 Intake & Output 09/27/17 09/28/17 09/28/17 18:59 06:59 18:59 Intake Total 1730 / 1730 1600 / 1600 Output Total 1500 / 1500 1999 / 1999 Balance 230 / 230 -400 / -400 Weight 64.5 kg Intake: IV 50 / 50 100 / 100 Zosyn 2.25 GM Premix 50 ML @ 50 / 50 100 / 100 100 mls/hr IV.SIG Q6H [facility] Rx#: [id number] Oral 1680 / 1680 1400 / 1400 Other 100 / 100 Output: Urine 1500 / 1500 1999 / 1999 Other: # Voids 3 # Bowel Movements 0 0 <Delroy Solis - 09/28/17 09:12> Narrative: GENERAL: Thin male lying in bed. SKIN: Warm and dry. HEAD: Normocephalic. EYES: No scleral icterus. No injection or drainage. NECK: Supple, trachea midline. No JVD or lymphadenopathy. CARDIOVASCULAR: Regular rate and rhythm without murmurs, gallops, or rubs. RESPIRATORY: Breath sounds equal bilaterally. No accessory muscle use. GASTROINTESTINAL: Abdomen soft, non-tender, nondistended. Normoactive bowel sounds MUSCULOSKELETAL: No cyanosis, or edema. BACK: Nontender kyphotic. No CVA tenderness. Extremities: No pain in calves on palpation. Left foot dressed and wrapped in Ayaan bandage, clean dry intact. Right foot with plantar ulceration. <Delroy Solis - 09/28/17 09:12> Assessment and Plan - Assessment (1) Osteomyelitis Code(s): M86.9 - Osteomyelitis, unspecified Status: Acute (2) Bacteremia Code(s): R78.81 - Bacteremia Status: Acute (3) Chest pain Code(s): R07.9 - Chest pain, unspecified Status: Acute (4) DANILO (acute kidney injury) Code(s): N17.9 - Acute kidney failure, unspecified Status: Acute (5) COPD (chronic obstructive pulmonary disease) Code(s): J44.9 - Chronic obstructive pulmonary disease, unspecified Status: Acute (6) CHF (congestive heart failure) Code(s): I50.9 - Heart failure, unspecified Status: Acute (7) Hypertension Code(s): I10 - Essential (primary) hypertension Status: Acute (8) History of substance abuse Code(s): Z87.898 - Personal history of other specified conditions Status: Acute (9) Diabetes Code(s): E11.9 - Type 2 diabetes mellitus without complications Status: Acute (10) Drug abuse Code(s): F19.10 - Other psychoactive substance abuse, uncomplicated Status: Acute (11) Nutrition, metabolism, and development symptoms Code(s): R63.8 - Other symptoms and signs concerning food and fluid intake Status: Acute <Gucci Grayson - 09/28/17 19:26> (1) Osteomyelitis Code(s): M86.9 - Osteomyelitis, unspecified Status: Acute Plan: Recurrent osteomyelitis of stump of second digit on left foot. 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 Patient did not complete outpatient antibiotics for recent osteomyelitis hospitalization. MRI of the left foot showed marrow edema of the fifth metatarsal. S/P lft 2nd toe amputation 09/26, with excision of left lateral foot wound and bone biopsy. -Patient on Zosyn 2.25 every 6 hours and vancomycin 1 g every 24 hours -Blood cultures preliminary issues pleomorphic gram-positive rods, corynebacterium -Wound culture of the second digit ordered, no organisms seen -podiatry amputated left toe and excised left lateral foot wound on 09/26, to have debridement of right foot today -Infectious disease consulted for osteomyelitis, continue vancomycin and Zosyn (2) Bacteremia Code(s): R78.81 - Bacteremia Status: Acute Plan: Patient with bacteremia found on blood cultures from 09/25/17 -Follow blood culture until speciation and susceptibilities finalized -Second set 09/27 pending (3) Chest pain Code(s): R07.9 - Chest pain, unspecified Status: Acute Plan: Chest pain with minimal exertion recently with elevated troponin of 0.03 -No active chest pain on exam -Likely due to recent cocaine use as well as acute kidney injury Correct DANILO with fluid hydration Monitor on telemetry (4) DANILO (acute kidney injury) Code(s): N17.9 - Acute kidney failure, unspecified Status: Acute Plan: Likely prerenal due to infection and acute illness. Improving -IV fluid hydration with normal saline -Repeat BMP tomorrow follow kidney function Patient's baseline creatinine around 1 (5) COPD (chronic obstructive pulmonary disease) Code(s): J44.9 - Chronic obstructive pulmonary disease, unspecified Status: Acute Plan: Chronic: Duo nebs ordered as needed (6) CHF (congestive heart failure) Code(s): I50.9 - Heart failure, unspecified Status: Acute Plan: Most recent echocardiogram on file is from 01/17/2013 showing an ejection fraction of 60% -No signs of acute exacerbation -Amlodipine and lisinopril held as patient is currently hypotensive IV fluid hydration as above Continue to monitor for signs of fluid overload (7) Hypertension Code(s): I10 - Essential (primary) hypertension Status: Acute Plan: Hold home lisinopril and amlodipine for now as patient is hypotensive. (8) History of substance abuse Code(s): Z87.898 - Personal history of other specified conditions Status: Acute Plan: UDS positive for opiates, benzodiazepines, cocaine Start patient's methadone 220 mg per day Continue to monitor for signs of withdrawal (9) Diabetes Code(s): E11.9 - Type 2 diabetes mellitus without complications Status: Acute Plan: Sliding scale insulin Bedside blood glucose checks Diabetic diet (10) Drug abuse Code(s): F19.10 - Other psychoactive substance abuse, uncomplicated Status: Acute Plan: Patient with a history of cocaine abuse and endorses recent cocaine use 2 days ago -UDS positive for opiates, benzodiazepines, cocaine -Monitor for signs of withdrawal (11) Nutrition, metabolism, and development symptoms Code(s): R63.8 - Other symptoms and signs concerning food and fluid intake Status: Acute Plan: Diet: Diabetic diet Fluids: Bolus NS for BP DVT prophylaxis: SCD <Delroy Solis - 09/28/17 09:04> - Attending Attestation Pt. examined independently and case discussed with resident physicians. I have read the above note and agree with the assessment and plan as discussed with me. I was involved in all medical decision making for this patient. Gucci Grayson MD <Gucci Grayson - 09/28/17 19:26> <Delroy Solis Last Filed: 09/28/17 09:04> (1) Osteomyelitis Qualifiers: Osteomyelitis type: unspecified type Osteomyelitis location: foot Laterality : left Qualified Code(s): M86.9 - Osteomyelitis, unspecified (9) Diabetes Qualifiers: Diabetes mellitus type: type 2 Diabetes mellitus long term care pharmacist insulin use: without skilled nursing use Diabetes mellitus complication status: with other specified complication Qualified Code(s): E11.69 - Type 2 diabetes mellitus with other specified complication <Gucci Grayson - Last Filed: 09/28/17 19:26> (1) Osteomyelitis Qualifiers: Osteomyelitis type: unspecified type Osteomyelitis location: foot Laterality : left Qualified Code(s): M86.9 - Osteomyelitis, unspecified (9) Diabetes Qualifiers: Diabetes mellitus type: type 2 Diabetes mellitus long term care pharmacist insulin use: without skilled nursing use Diabetes mellitus complication status: with other specified complication Qualified Code(s): E11.69 - Type 2 diabetes mellitus with other specified complication <Delroy Solis Last Filed: 09/28/17 09:04> (1) Osteomyelitis Qualifiers: Osteomyelitis type: unspecified type Osteomyelitis location: foot Laterality : left Qualified Code(s): M86.9 - Osteomyelitis, unspecified (9) Diabetes Qualifiers: Diabetes mellitus type: type 2 Diabetes mellitus long term care pharmacist insulin use: without skilled nursing use Diabetes mellitus complication status: with other specified complication Qualified Code(s): E11.69 - Type 2 diabetes mellitus with other specified complication <Gucci Grayson - Last Filed: 09/28/17 19:26> (1) Osteomyelitis Qualifiers: Osteomyelitis type: unspecified type Osteomyelitis location: foot Laterality : left Qualified Code(s): M86.9 - Osteomyelitis, unspecified (9) Diabetes Qualifiers: Diabetes mellitus type: type 2 Diabetes mellitus long term care pharmacist insulin use: without long term care pharmacist use Diabetes mellitus complication status: with other specified complication Qualified Code(s): E11.69 - Type 2 diabetes mellitus with other specified complication
[2017-09-28] MEDS: Gabapentin 300 MG Capsule PO SCH ×2 (09:48→20:13)
[2017-09-28] MEDS: Vancomycin Inj 1,250 MG in Sodium Chlor 0.9% Inj 250 ML IV.SIG SCH (13:35)
--- NOTE | 2017-09-28 14:32 | P.PNID ---
Subjective Remarks: Patient is a 57-year-old male, presented to the hospital for further evaluation of his left foot. Patient has had several admissions for infection of his left foot. On 1 of his admission he had amputation of his left great toe and ray resection and this was back in April. He was supposed to get IV antibiotics until around May, but he only did 2 weeks because of problem with transportation. He got readmitted in July and at that time he had noticed redness swelling and wound on his left second toe. The amputation site on his left foot from his surgery back in April was completely healed. During his admission in July, he underwent partial amputation of his left second toe, and pathology showed that the margins were clear. He was discharged on oral antibiotics. Patient normally lives in a tent, and he has been trying to do wound care on his surgical incisions. About 2 days prior to admission, he did not like the look of his left second toe, so he presented to the hospital for further evaluation and treatment. He has not really had any documented fevers. No respiratory GI or any urinary complaints. Since admission he has not been febrile. His WBC is normal. ESR is elevated. His toxicology screen is positive for opiates, cocaine, and Infectious disease consultation has been requested to evaluate the patient. Notes reviewed Tembailee ok Had surgery on his L foot C/S negative Has 2 BC on admission with Corynebacterium He denies using IV drugs but snorts and smokes C/O some R sided chest pain has had on and off for a while CXR on admission negative Being evaluated for OK Antibiotics: Zosyn Vancomycin Lines: No evidence of infection Past Medical History: Hip fracture (Acute) Cirrhosis of liver (Acute) COPD (chronic obstructive pulmonary disease) (Acute) CHF (congestive heart failure) (Acute) Hypertension (Acute) Diabetes (Acute) Osteomyelitis due to secondary diabetes (Acute) Amputated toe of left foot Hepatitis C Hip fracture H/O hemorrhoidectomy Hx of tonsillectomy Allergies/Adverse Reactions: Allergies codeine Allergy (Severe, Verified 09/25/17 15:29) NAUSEA Objective Vital Signs 09/27/17 15:00 09/27/17 16:00 09/27/17 17:00 Temperature 98.5 F Pulse Rate 52 L 53 L 51 L Respiratory Rate 15 19 11 L Blood Pressure 99/58 L 92/63 L Pulse Oximetry 96 91 L 94 L 09/27/17 17:01 09/27/17 18:00 09/27/17 18:01 Temperature Pulse Rate 55 L 52 L 51 L Respiratory Rate 24 19 24 Blood Pressure 105/61 88/48 L Pulse Oximetry 85 L 91 L 99 09/27/17 20:00 09/28/17 00:00 09/28/17 04:00 Temperature 98 F 98.4 F 98.1 F Pulse Rate 51 L 52 L 49 L Respiratory Rate 20 22 20 Blood Pressure 89/59 L 117/59 L 114/55 L Pulse Oximetry 100 99 98 09/28/17 08:00 09/28/17 12:00 Temperature 98.3 F 98.3 F Pulse Rate 57 L 54 L Respiratory Rate 20 Blood Pressure 132/61 Pulse Oximetry 98 Intake & Output 09/27/17 09/28/17 09/28/17 18:59 06:59 18:59 Intake Total 1992.5 / 1992.5 1600 / 1600 Output Total 1500 / 1500 2000 / 2000 Balance 492.5 / 492.5 -400 / -400 Weight 64.5 kg Intake: IV 312.5 / 312.5 100 / 100 Zosyn 2.25 GM Premix 50 ML @ 50 / 50 100 / 100 100 mls/hr IV.SIG Q6H [facility]ON Rx#: [id number] Vancomycin Inj 1,250 MG In NS 262.5 / 262.5 Inj 250 ML @ 262.5 mls/hr IV. SIG Q24H LEON Rx#:[id number] Oral 1680 / 1680 1400 / 1400 Other 100 / 100 Output: Urine 1500 / 1500 1999 / 1999 Other: # Voids 3 # Bowel Movements 0 0 09/25/17 11:57 Blood - Peripheral Aerobic Blood Culture - Final Corynebacterium not AdriannaK 09/25/17 11:57 Blood - Peripheral Anaerobic Blood Culture - Preliminary No growth in 3 days 09/26/17 10:30 Wound - Foot Gram Stain - Final 09/26/17 10:30 Wound - Foot Wound Culture - Preliminary Light growth normal skin myron No anaerobes isolated 09/26/17 10:30 Wound - Toe Gram Stain - Final 09/26/17 10:30 Wound - Toe Wound Culture - Preliminary No growth in 48 hours 09/25/17 12:02 Blood - Peripheral Aerobic Blood Culture - Final Corynebacterium not JK 09/25/17 12:02 Blood - Peripheral Anaerobic Blood Culture - Preliminary No growth in 3 days 09/25/17 11:57 Abscess - Foot Gram Stain - Final 09/25/17 11:57 Abscess - Foot Wound Culture - Preliminary Acinetobacter clarence cplx/haemol S. aureus MRSA Group D Enterococcus 09/28/17 04:37 Blood - Peripheral Aerobic Blood Culture - Pending 09/28/17 04:37 Blood - Peripheral Anaerobic Blood Culture - Pending 09/28/17 04:40 Blood - Peripheral Aerobic Blood Culture - Pending 09/28/17 04:40 Blood - Peripheral Anaerobic Blood Culture - Pending 09/26/17 10:30 Wound - Foot Acid Fast Bacilli Smear - Final No acid fast bacilli seen 09/26/17 10:30 Wound - Foot Mycobacterial Culture - Pending 09/26/17 10:30 Wound - Toe Acid Fast Bacilli Smear - Final No acid fast bacilli seen 09/26/17 10:30 Wound - Toe Mycobacterial Culture - Pending 09/26/17 10:30 Wound - Foot Fungal Smear - Final No fungal elements seen 09/26/17 10:30 Wound - Foot Fungal Culture - Pending 09/26/17 10:30 Wound - Toe Fungal Smear - Final No fungal elements seen 09/26/17 10:30 Wound - Toe Fungal Culture - Pending Lab - Hematology Results 09/27/17 09/28/17 07:29 04:40 WBC 8.9 7.5 RBC 3.16 L 3.01 L Hgb 9.4 L 8.7 L Hct 28.4 L 26.6 L MCV 90.0 88.4 MCH 29.7 28.9 MCHC 33.0 32.7 RDW 14.5 14.3 Plt Count 198 185 MPV 8.0 8.2 Neut % (Auto) 58.6 Lymph % (Auto) 29.2 [place] % (Auto) 8.2 H Eos % (Auto) 3.7 Baso % (Auto) 0.3 Neut # (Auto) 4.4 Lymph # (Auto) 2.2 [place] # (Auto) 0.6 Eos # (Auto) 0.3 Baso # (Auto) 0.0 WBC Differential . Differential Comment Auto diff final Lab - Chemistry Results 09/26/17 09/26/17 09/26/17 17:46 20:04 21:04 Sodium 139 Potassium 5.1 D Chloride 108 H Carbon Dioxide 27.3 Anion Gap 4 L BUN 20 H Creatinine 1.54 H Estimated GFR 46 L POC Glucose 117 H 103 Random Glucose 77 Calcium 8.3 L Troponin I 09/27/17 09/27/17 09/27/17 07:29 09:14 11:21 Sodium 141 Potassium 5.7 H Chloride 108 H Carbon Dioxide 28.9 Anion Gap 4 L BUN 19 H Creatinine 1.43 H Estimated GFR 51 L POC Glucose 212 H 287 H Random Glucose 78 Calcium 8.9 Troponin I 09/27/17 09/27/17 09/28/17 18:17 22:17 04:40 Sodium 140 Potassium 4.5 D Chloride 105 Carbon Dioxide 31.3 Anion Gap 4 L BUN 20 H Creatinine 1.23 Estimated GFR 60 L POC Glucose 77 100 Random Glucose 90 Calcium 8.5 Troponin I 09/28/17 09/28/17 10:55 12:00 Sodium Potassium Chloride Carbon Dioxide Anion Gap BUN Creatinine Estimated GFR POC Glucose 94 Random Glucose Calcium Troponin I 0.03 Imaging: ITS Impressions Chest X-Ray 09/25/17 13:18 CONCLUSION: No acute cardiopulmonary disease. Foot MRI 09/25/17 16:54 CONCLUSION: 1. Subtle marrow edema in the remaining proximal fifth metatarsal 2. Lack of intravenous contrast makes interpretation 3. Tagged white cell study may be of benefit. Foot X-Ray 09/26/17 00:00 CONCLUSION: Interval amputation since the prior examination. Physical Exam: GENERAL: awake and alert, not in respiratory distress. SKIN: Cool and dry. No generalized rash, no ecchymoses and no evidence of embolic lesions. HEAD: Atraumatic. Normocephalic. No temporal wasting, or tenderness. EYES: [place] conjunctiva. No petechia or hemorrhage. Pupils equal, round and reactive to light. Extraocular movements full and intact. No scleral icterus. No injection or drainage. EARS, NOSE AND THROAT: Nose without bleeding or purulent nasal discharge. Mucous membranes pink and moist. No oral lesions noted. Poor dentition. NECK: Trachea midline. Supple and not tender, no meningeal signs CARDIOVASCULAR: Regular rate and rhythm. No murmurs, rubs or gallops heard RESPIRATORY: Clear to auscultation. Breath sounds equal bilaterally. No rales , wheezing or rhonchi ABDOMEN: Soft, non-tender, nondistended. Bowel sounds present and normoactive. No guarding. No rebound. No organomegaly. EXTREMITIES: No clubbing, cyanosis. Has intact dry dressing to his L foot. No calf tenderness. Well perfused and warm. NEUROLOGICAL: Awake and alert. Cranial nerves grossly intact. Motor grossly within normal limits. PSYCHIATRIC: Normal affect, calm and cooperative. LINE: No evidence of infection Assessment and Plan - Plan Impression Osteo L second toe Wound dehiscence lateral foot Previous MRSA infection L foot Renal insufficiency, etiology? better Corynebacterium bacteremia DM Active polysubstance abuse, denies IVDU Recommendation Continue IV Vanco - pharmacy doing dosing Continue Zosyn Follow new C/S Follow wound C/S Echo to evaluate valves Will determine course of treatment once work-up is completed D/W ANGELA
--- NOTE | 2017-09-28 15:26 | P.PNPOD ---
Subjective Interval history: Patient seen bedside. Denies any nausea vomiting fevers or chills. Denies any calf pain to left lower extremity. Is in agreement with right foot debridement to plantar ulceration. Physical Exam Vital signs: Vital Signs 09/27/17 16:00 09/27/17 17:00 09/27/17 17:01 Temperature 98.5 F Pulse Rate 53 L 51 L 55 L Respiratory Rate 19 11 L 24 Blood Pressure 92/63 L 105/61 Pulse Oximetry 91 L 94 L 85 L 09/27/17 18:00 09/27/17 18:01 09/27/17 20:00 Temperature 98 F Pulse Rate 52 L 51 L 51 L Respiratory Rate 19 24 20 Blood Pressure 88/48 L 89/59 L Pulse Oximetry 91 L 99 100 09/28/17 00:00 09/28/17 04:00 09/28/17 08:00 Temperature 98.4 F 98.1 F 98.3 F Pulse Rate 52 L 49 L 57 L Respiratory Rate 22 20 20 Blood Pressure 117/59 L 114/55 L 132/61 Pulse Oximetry 99 98 98 09/28/17 12:00 Temperature 98.3 F Pulse Rate 54 L Respiratory Rate Blood Pressure Pulse Oximetry Intake & Output 09/27/17 09/28/17 09/28/17 18:59 06:59 18:59 Intake Total 1992.5 / 1992.5 1600 / 1600 Output Total 1500 / 1500 1999 / 1999 Balance 492.5 / 492.5 -400 / -400 Weight 64.5 kg Intake: IV 312.5 / 312.5 100 / 100 Zosyn 2.25 GM Premix 50 ML @ 50 / 50 100 / 100 100 mls/hr IV.SIG Q6H [facility]ON Rx#: [id number] Vancomycin Inj 1,250 MG In NS 262.5 / 262.5 Inj 250 ML @ 262.5 mls/hr IV. SIG Q24H [facility]ON Rx#:[id number] Oral 1680 / 1680 1400 / 1400 Other 100 / 100 Output: Urine 1500 / 1500 1999 / 1999 Other: # Voids 3 # Bowel Movements 0 0 Narrative: Left foot sutures intact with skin well coapted. No periwound erythema noted. Capillary refill time intact to left digits 2. Right foot submet 2 ulceration with hyperkeratotic borders and fibrotic base. Medications and Allergies Active Medications: Active Medications Albuterol (Duoneb Neb (Prn)) 1 ampul NEB Q15M PRN PRN Reason: SHORTNESS OF BREATH/WHEEZING Last Admin: 09/27/17 11:43 Dose: 1 ampul Chlorhexidine Gluconate (Chlorhexidine 2% Cloth) 3 pack TOPICAL DAILY@0400 [facility]ON Stop: 10/01/17 03:59 Last Admin: 09/28/17 06:28 Dose: 3 pack Chlorhexidine Gluconate (Chlorhexidine 2% Cloth) 3 pack TOPICAL DAILY@0400 PRN PRN Reason: Extra cloth needed Stop: 10/01/17 03:59 Dextrose (D50w Vial) 50 ml IV.PUSH UNSCH PRN PRN Reason: PER HYPOGLYCEMIA PROTOCOL Gabapentin (Neurontin) 300 mg PO Q12HR [facility] Last Admin: 09/28/17 09:48 Dose: 300 mg Glucagon (Glucagon Inj) 1 mg OTHER PRN PRN PRN Reason: for Hypoglycemia Protocol Piperacillin/Tazobactam/Dextrose (Zosyn 2.25 Gm Premix) 50 mls @ 100 mls/hr IV.SIG Q6H [facility] Last Admin: 09/28/17 12:37 Dose: 100 mls/hr Pharmacy Profile Note (Vancomycin Consult Pharmacy) 0 mls @ 0 mls/hr OTHER UNSCH [facility] Vancomycin HCl 1,250 mg/ (Sodium Chloride) 262.5 mls @ 262.5 mls/hr IV.SIG Q24H [facility] Last Admin: 09/28/17 13:35 Dose: 262.5 mls/hr Insulin Aspart (Novolog Insulin Correctional Sugar Inj) 0 unit SQ ACHS [facility]; Protocol Last Admin: 09/28/17 13:32 Dose: Not Given Methadone HCl (Dolophine) 220 mg PO DAILY [facility] Last Admin: 09/28/17 08:51 Dose: 220 mg Miscellaneous Information ([facility] Ordered Lab Info) 0 each OTHER ONCE ONE Stop: 09/30/17 12:46 Sodium Chloride (Ns Flush) 2 ml IV.FLUSH BID [facility] Last Admin: 09/28/17 13:32 Dose: 2 ml Sodium Chloride (Ns Flush) 2 ml IV.FLUSH UNSCH PRN PRN Reason: FLUSH AFTER USING IV ACCESS Allergies Allergy/AdvReac Type Severity Reaction Status Date / Time codeine Allergy Severe NAUSEA Verified 09/25/17 15:29 Home Medications Medication Instructions Recorded Confirmed Type amlodipine 5 mg PO DAILY 08/28/17 09/25/17 History gabapentin 300 mg PO Q8HR 08/28/17 09/25/17 History lisinopril 10 mg PO DAILY 08/28/17 09/25/17 History metformin 500 mg PO BIDPC 08/28/17 09/25/17 History methadone 220 mg PO DAILY 08/28/17 09/25/17 History Results - Labs CBC & Chem 7: 09/28/17 04:40 09/28/17 04:40 Laboratory Results - last 24 hr 09/27/17 09/27/17 09/28/17 18:17 22:17 04:40 WBC 7.5 RBC 3.01 L Hgb 8.7 L Hct 26.6 L MCV 88.4 MCH 28.9 MCHC 32.7 RDW 14.3 Plt Count 185 MPV 8.2 Neut % (Auto) 58.6 Lymph % (Auto) 29.2 [place] % (Auto) 8.2 H Eos % (Auto) 3.7 Baso % (Auto) 0.3 Neut # (Auto) 4.4 Lymph # (Auto) 2.2 [place] # (Auto) 0.6 Eos # (Auto) 0.3 Baso # (Auto) 0.0 WBC Differential . Differential Comment Auto diff final Sodium Potassium Chloride Carbon Dioxide Anion Gap BUN Creatinine Estimated GFR POC Glucose 77 100 Random Glucose Calcium Troponin I 09/28/17 09/28/17 09/28/17 04:40 10:55 12:00 WBC RBC Hgb Hct MCV MCH MCHC RDW Plt Count MPV Neut % (Auto) Lymph % (Auto) [place] % (Auto) Eos % (Auto) Baso % (Auto) Neut # (Auto) Lymph # (Auto) [place] # (Auto) Eos # (Auto) Baso # (Auto) WBC Differential Differential Comment Sodium 140 Potassium 4.5 D Chloride 105 Carbon Dioxide 31.3 Anion Gap 4 L BUN 20 H Creatinine 1.23 Estimated GFR 60 L POC Glucose 94 Random Glucose 90 Calcium 8.5 Troponin I 0.03 Microbiology 09/25/17 11:57 Blood - Peripheral Aerobic Blood Culture - Final Corynebacterium not JK 09/25/17 11:57 Blood - Peripheral Anaerobic Blood Culture - Preliminary No growth in 3 days 09/26/17 10:30 Wound - Foot Gram Stain - Final 09/26/17 10:30 Wound - Foot Wound Culture - Preliminary Light growth normal skin myron No anaerobes isolated 09/26/17 10:30 Wound - Toe Gram Stain - Final 09/26/17 10:30 Wound - Toe Wound Culture - Preliminary No growth in 48 hours 09/25/17 12:02 Blood - Peripheral Aerobic Blood Culture - Final Corynebacterium not JK 09/25/17 12:02 Blood - Peripheral Anaerobic Blood Culture - Preliminary No growth in 3 days 09/25/17 11:57 Abscess - Foot Gram Stain - Final 09/25/17 11:57 Abscess - Foot Wound Culture - Preliminary Acinetobacter clarence cplx/haemol S. aureus MRSA Group D Enterococcus 09/26/17 10:30 Wound - Foot Acid Fast Bacilli Smear - Final No acid fast bacilli seen 09/26/17 10:30 Wound - Toe Acid Fast Bacilli Smear - Final No acid fast bacilli seen Assessment and Plan - Assessment (1) Osteomyelitis of ankle or foot, left, acute Code(s): M86.172 - Other acute osteomyelitis, left ankle and foot Status: Acute - Plan 57-year-old male one day status post surgical intervention by Dr. Serrano date of surgery 09/26 Procedures performed: 1. amputation left 2nd toe with biopsy 2. excision of wound left lateral foot with bone biopsy Patient examined evaluated with all questions answered Left lower extremity surgical dressing changed, Adaptic, 4 x 4's, Rufina, and Ayaan applied Full-thickness excisional debridement performed of right foot submetatarsal 2 ulceration Continue with heel weightbearing to left foot Will await OR pathology and micro Okay to DC per podiatry once final OR cultures are made available Patient to follow-up with Dr. Serrano within 1 week of discharge Right foot procedure in detail: Full-thickness excisional debridement to subcutaneous tissue with 15 blade performed. Consent signed timeout performed with nursing present bedside. Correct patient and correct site procedure identified.
--- NOTE | 2017-09-28 17:49 | ECG ---
Date Performed: 09/28/2017 Time Performed: 09:54:53 PTAGE: 57 years EKG: SINUS BRADYCARDIA POSSIBLE LEFT ATRIAL ENLARGEMENT BORDERLINE ECG Since the PREVIOUS TRACING , no significant change noted PREVIOUS TRACIN09/25/2017 13.30 DOCTOR: Chan Kumar Interpretating Date/Time 09/28/2017 17:47:16
[2017-09-29] MEDS: Piperacil/Tazo 2.25 GM Premix 50 ML IV.SIG SCH ×4 (00:13→18:32)
[2017-09-29] MEDS: Chlorhexidine Gluconate 2% 1 Pack (2 Cloths) TOPICAL SCH (05:49)
[2017-09-29 07:27] LABS: Baso % (Auto) 0.4 % (0.0-2.0); Eos # (Auto) 0.3 th/mm3 (0.0-0.4); Eos % (Auto) 6.3 % (0.0-4.0); Hematocrit 42.4 % (39.0-51.0); Hemoglobin 13.7 gm/dL (13.0-17.0); Lymph # (Auto) 2.4 th/mm3 (1.0-4.8); Mean Corpuscular HGB Conc 32.4 % (32.0-36.0); Mean Corpuscular Hemoglobin 28.8 pg (27.0-34.0); Mean Corpuscular Volume 89.1 fL (80.0-100.0); Mean Platelet Volume 8.5 fL (7.0-11.0); Mono # (Auto) 0.4 th/mm3 (0.0-0.9); Mono % (Auto) 7.7 % (0.0-8.0); Neut # (Auto) 1.9 th/mm3 (1.8-7.7); Neut % (Auto) 37.6 % (16.0-70.0); Platelet Count 116 th/mm3 (150-450); Red Blood Count 4.76 mil/mm3 (4.50-5.90); Red Cell Distribution Width 14.2 % (11.6-17.2); White Blood Count 5.1 th/mm3 (4.0-11.0)
[2017-09-29 07:34] LABS: Calcium 8.3 mg/dL (8.5-10.1); Carbon Dioxide 32.3 meq/L (21.0-32.0); Potassium 4.7 meq/L (3.5-5.1)
--- NOTE | 2017-09-29 08:33 | P.PNFP ---
Subjective Interval history: Mr. Alva had no overnight events. He does endorse continued chest pain with exertion. He denies excess bleeding/drainage from his surgical sites of his feet. He reports pain in his hips and his feet. He denies shortness of breath, nausea, vomiting, abdominal pain, calf pain. <Iliana Matute - 09/29/17 08:47> Results - Labs Result diagrams: 09/29/17 06:21 09/29/17 06:21 <Gucci Grayson - 09/29/17 16:26> Abnormal lab results 09/28/17 09/29/17 09/29/17 Range/Units 19:45 06:21 06:21 Plt Count 116 L D (150-450) th/mm3 Lymph % (Auto) 48.0 H (9.0-44.0) % Eos % (Auto) 6.3 H (0.0-4.0) % Carbon Dioxide 32.3 H (21.0-32.0) meq/L BUN 21 H (7-18) mg/dL Estimated GFR 60 L (>89) mL/min POC Glucose 126 H (68-110) mg/dl Random Glucose 64 L (74-106) mg/dL Calcium 8.3 L (8.5-10.1) mg/dL Short CBC 09/29/17 Range/Units 06:21 WBC 5.1 (4.0-11.0) th/mm3 Hgb 13.7 D (13.0-17.0) gm/dL Hct 42.4 (39.0-51.0) % Plt Count 116 L D (150-450) th/mm3 [facility] 09/29/17 06:21 Sodium 141 Potassium 4.7 Chloride 103 Carbon Dioxide 32.3 H BUN 21 H Creatinine 1.24 Calcium 8.3 L <Gucci Grayson - 09/29/17 16:26> Abnormal lab results 09/28/17 09/29/17 09/29/17 Range/Units 19:45 06:21 06:21 Plt Count 116 L D (150-450) th/mm3 Lymph % (Auto) 48.0 H (9.0-44.0) % Eos % (Auto) 6.3 H (0.0-4.0) % Carbon Dioxide 32.3 H (21.0-32.0) meq/L BUN 21 H (7-18) mg/dL Estimated GFR 60 L (>89) mL/min POC Glucose 126 H (68-110) mg/dl Random Glucose 64 L (74-106) mg/dL Calcium 8.3 L (8.5-10.1) mg/dL Short CBC 09/29/17 Range/Units 06:21 WBC 5.1 (4.0-11.0) th/mm3 Hgb 13.7 D (13.0-17.0) gm/dL Hct 42.4 (39.0-51.0) % Plt Count 116 L D (150-450) th/mm3 BMP 09/29/17 06:21 Sodium 141 Potassium 4.7 Chloride 103 Carbon Dioxide 32.3 H BUN 21 H Creatinine 1.24 Calcium 8.3 L Cardiac Enzymes 09/28/17 Range/Units 10:55 Troponin I 0.03 (0.02-0.05) ng/mL <Iliana Matute - 09/29/17 08:33> Physical Exam Vital signs: Vital Signs 09/28/17 20:00 09/29/17 00:00 09/29/17 04:00 Temperature 98.6 F 98.4 F 96.6 F L Pulse Rate 50 L 44 L 55 L Respiratory Rate 11 L 11 L 15 Blood Pressure 139/68 140/71 135/61 Pulse Oximetry 98 93 L 100 09/29/17 08:00 09/29/17 16:00 Temperature 97.8 F 97.8 F Pulse Rate 49 L 59 L Respiratory Rate 16 20 Blood Pressure 132/60 158/62 H Pulse Oximetry 100 Intake & Output 09/28/17 09/29/17 09/29/17 18:59 06:59 18:59 Intake Total 2592.5 / 2592.5 820 / 820 Output Total 2950 / 2950 1999 / 1999 Balance -357.5 / -357.5 -1180 / -1180 Weight 65.5 kg 65.5 kg Intake: IV 362.5 / 362.5 100 / 100 Zosyn 2.25 GM Premix 50 ML @ 100 / 100 100 / 100 100 mls/hr IV.SIG Q6H [facility] Rx#: [id number] Vancomycin Inj 1,250 MG In NS 262.5 / 262.5 Inj 250 ML @ 262.5 mls/hr IV. SIG Q24H [facility] Rx#:[id number] Oral 1780 / 1780 720 / 720 Anesthesia Amount 350 / 350 0 / 0 Other 100 / 100 0 / 0 Output: Urine 2950 / 2950 1999 Other: # Voids 3 5 Date of Last Bowel Movement 09/28/17 09/28/17 09/28/17 # Bowel Movements 0 0 <Gucci Grayson - 09/29/17 16:26> Vital Signs 09/28/17 12:00 09/28/17 16:00 09/28/17 20:00 Temperature 98.3 F 93.3 F L 98.6 F Pulse Rate 54 L 46 L 50 L Respiratory Rate 20 11 L Blood Pressure 139/68 Pulse Oximetry 98 09/29/17 00:00 09/29/17 04:00 Temperature 98.4 F 96.6 F L Pulse Rate 44 L 55 L Respiratory Rate 11 L 15 Blood Pressure 140/71 135/61 Pulse Oximetry 93 L 100 Intake & Output 09/28/17 09/29/17 09/29/17 18:59 06:59 18:59 Intake Total 2330 / 2330 770 / 770 Output Total 2950 / 2950 1999 Balance -620 / -620 -1230 / -1230 Weight 65.5 kg Intake: IV 100 / 100 50 / 50 Zosyn 2.25 GM Premix 50 ML @ 100 / 100 50 / 50 100 mls/hr IV.SIG Q6H [facility] Rx#: [id number] Oral 1780 / 1780 720 / 720 Anesthesia Amount 350 / 350 0 / 0 Other 100 / 100 0 / 0 Output: Urine 2950 / 2950 1999 Other: # Voids 3 5 Date of Last Bowel Movement 09/28/17 09/28/17 # Bowel Movements 0 0 <Iliana Matute E - 09/29/17 08:33> Narrative: GENERAL: Thin male lying in bed. CARDIOVASCULAR: Regular rate and rhythm without murmurs, gallops, or rubs. RESPIRATORY: Breath sounds equal bilaterally. No accessory muscle use. GASTROINTESTINAL: Abdomen soft, non-tender, nondistended. Normoactive bowel sounds Extremities: No pain in calves on palpation. Left foot dressed and wrapped in Ayaan bandage, clean dry intact. Right foot with gauze and bandaging in place, minimal serosanguineous drainage from site of debridement. Patient able to move toes. <Iliana Matute Taisha - 09/29/17 08:47> Assessment and Plan - Assessment (1) Osteomyelitis Code(s): M86.9 - Osteomyelitis, unspecified Status: Acute (2) Bacteremia Code(s): R78.81 - Bacteremia Status: Acute (3) Chest pain Code(s): R07.9 - Chest pain, unspecified Status: Acute (4) DANILO (acute kidney injury) Code(s): N17.9 - Acute kidney failure, unspecified Status: Acute (5) COPD (chronic obstructive pulmonary disease) Code(s): J44.9 - Chronic obstructive pulmonary disease, unspecified Status: Acute (6) CHF (congestive heart failure) Code(s): I50.9 - Heart failure, unspecified Status: Acute (7) Hypertension Code(s): I10 - Essential (primary) hypertension Status: Acute (8) History of substance abuse Code(s): Z87.898 - Personal history of other specified conditions Status: Acute (9) Diabetes Code(s): E11.9 - Type 2 diabetes mellitus without complications Status: Acute (10) Drug abuse Code(s): F19.10 - Other psychoactive substance abuse, uncomplicated Status: Acute (11) Nutrition, metabolism, and development symptoms Code(s): R63.8 - Other symptoms and signs concerning food and fluid intake Status: Acute <KenanGucci - 09/29/17 16:26> (1) Osteomyelitis Code(s): M86.9 - Osteomyelitis, unspecified Status: Acute Plan: POD 3 from left to amputation and left lateral foot excision. Day 1 post debridement of right foot. -Continue Zosyn 2.25 every 6 hours and vancomycin 1 g every 24 hours -Follow-up with podiatry and infectious disease regarding personal adequate margins of operative sample. -Blood cultures preliminary show pleomorphic gram-positive rods, corynebacterium -Wound culture of the second digit ordered, no organisms seen -Infectious disease consulted for osteomyelitis, continue vancomycin and Zosyn History: Recurrent osteomyelitis of stump of second digit on left foot. 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 Patient did not complete outpatient antibiotics for recent osteomyelitis hospitalization. MRI of the left foot showed marrow edema of the fifth metatarsal. S/P lft 2nd toe amputation 09/26, with excision of left lateral foot wound and bone biopsy. (2) Bacteremia Code(s): R78.81 - Bacteremia Status: Acute Plan: -blood cultures from 09/25/17- corynebacterium x2 samples. vancomycin susceptible -Second set 09/28 pending (3) Chest pain Code(s): R07.9 - Chest pain, unspecified Status: Acute Plan: Continue with telemetry Chest pain with minimal exertion recently with elevated troponin of 0.03 -Troponin 0.03 yesterday stable from admission troponin. Ekg showed no Aaute changes. -No active chest pain on exam -Likely due to cocaine use as well as acute kidney injury on admission (4) DANILO (acute kidney injury) Code(s): N17.9 - Acute kidney failure, unspecified Status: Acute Plan: Likely prerenal due to infection and acute illness. Improving -Continue p.o. hydration -Repeat BMP tomorrow follow kidney function Patient's baseline creatinine around 1 (5) COPD (chronic obstructive pulmonary disease) Code(s): J44.9 - Chronic obstructive pulmonary disease, unspecified Status: Acute Plan: Chronic: Duo nebs ordered as needed -Will likely need albuterol inhaler on discharge. (6) CHF (congestive heart failure) Code(s): I50.9 - Heart failure, unspecified Status: Acute Plan: -Continue to monitor for signs of fluid overload -No signs of acute exacerbation -Amlodipine and lisinopril held as patient is currently hypotensive History: Most recent echocardiogram on file is from 01/17/2013 showing an ejection fraction of 60% (7) Hypertension Code(s): I10 - Essential (primary) hypertension Status: Acute Plan: Hold home lisinopril and amlodipine for now as patient is hypotensive. (8) History of substance abuse Code(s): Z87.898 - Personal history of other specified conditions Status: Acute Plan: UDS positive for opiates, benzodiazepines, cocaine Continue patient's methadone 220 mg per day Continue to monitor for signs of withdrawal (9) Diabetes Code(s): E11.9 - Type 2 diabetes mellitus without complications Status: Acute Plan: Sliding scale insulin Bedside blood glucose checks Diabetic diet (10) Drug abuse Code(s): F19.10 - Other psychoactive substance abuse, uncomplicated Status: Acute Plan: Patient with a history of cocaine abuse and endorses recent cocaine use 2 days prior to admission -UDS positive for opiates, benzodiazepines, cocaine -Monitor for signs of withdrawal (11) Nutrition, metabolism, and development symptoms Code(s): R63.8 - Other symptoms and signs concerning food and fluid intake Status: Acute Plan: Diet: Diabetic diet Fluids: Bolus NS for BP DVT prophylaxis: SCD, Haparin 5000U BID <Iliana Matute - 09/29/17 08:34> - Attending Attestation Patient examined independently and case discussed with resident physicians I have read the above note and agree with the assessment/plan as discussed with me I was involved in all medical decision making for this patient Gucci Grayson MD <Gucci Grayson - 09/29/17 16:26> <Iliana Matute E - Last Filed: 09/29/17 08:34> (1) Osteomyelitis Qualifiers: Osteomyelitis type: unspecified type Osteomyelitis location: foot Laterality : left Qualified Code(s): M86.9 - Osteomyelitis, unspecified (9) Diabetes Qualifiers: Diabetes mellitus type: type 2 Diabetes mellitus halfway insulin use: without halfway use Diabetes mellitus complication status: with other specified complication Qualified Code(s): E11.69 - Type 2 diabetes mellitus with other specified complication <Gucci Grayson - Last Filed: 09/29/17 16:26> (1) Osteomyelitis Qualifiers: Osteomyelitis type: unspecified type Osteomyelitis location: foot Laterality : left Qualified Code(s): M86.9 - Osteomyelitis, unspecified (9) Diabetes Qualifiers: Diabetes mellitus type: type 2 Diabetes mellitus terminal make up operator insulin use: without halfway use Diabetes mellitus complication status: with other specified complication Qualified Code(s): E11.69 - Type 2 diabetes mellitus with other specified complication <Iliana Matute - Last Filed: 09/29/17 08:34> (1) Osteomyelitis Qualifiers: Osteomyelitis type: unspecified type Osteomyelitis location: foot Laterality : left Qualified Code(s): M86.9 - Osteomyelitis, unspecified (9) Diabetes Qualifiers: Diabetes mellitus type: type 2 Diabetes mellitus halfway insulin use: without halfway use Diabetes mellitus complication status: with other specified complication Qualified Code(s): E11.69 - Type 2 diabetes mellitus with other specified complication <Gucci Grayson - Last Filed: 09/29/17 16:26> (1) Osteomyelitis Qualifiers: Osteomyelitis type: unspecified type Osteomyelitis location: foot Laterality : left Qualified Code(s): M86.9 - Osteomyelitis, unspecified (9) Diabetes Qualifiers: Diabetes mellitus type: type 2 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
[2017-09-29] MEDS: Methadone 10 MG Tablet PO SCH (08:49)
[2017-09-29] MEDS: Gabapentin 300 MG Capsule PO SCH ×2 (08:51→20:19)
[2017-09-29] MEDS: Heparin - SQ 10,000 UNITS/ML Vial SQ SCH ×2 (08:51→20:19)
[2017-09-29] MEDS: Vancomycin Inj 1,250 MG in Sodium Chlor 0.9% Inj 250 ML IV.SIG SCH (12:57)
--- NOTE | 2017-09-29 13:43 | P.PNID ---
Subjective Remarks: Patient is a 57-year-old male, presented to the hospital for further evaluation of his left foot. Patient has had several admissions for infection of his left foot. On 1 of his admission he had amputation of his left great toe and ray resection and this was back in April. He was supposed to get IV antibiotics until around May, but he only did 2 weeks because of problem with transportation. He got readmitted in July and at that time he had noticed redness swelling and wound on his left second toe. The amputation site on his left foot from his surgery back in April was completely healed. During his admission in July, he underwent partial amputation of his left second toe, and pathology showed that the margins were clear. He was discharged on oral antibiotics. Patient normally lives in a tent, and he has been trying to do wound care on his surgical incisions. About 2 days prior to admission, he did not like the look of his left second toe, so he presented to the hospital for further evaluation and treatment. He has not really had any documented fevers. No respiratory GI or any urinary complaints. Since admission he has not been febrile. His WBC is normal. ESR is elevated. His toxicology screen is positive for opiates, cocaine, and Infectious disease consultation has been requested to evaluate the patient. Notes reviewed Apurva norton Had surgery on his L foot 09/26 Had bedside debridement of ulcer R foot C/S negative Biopsy with osteo on residual MT Has 2 BC on admission with Corynebacterium No new (+) BC He denies using IV drugs but snorts and smokes CXR on admission negative Echo ordered Patient states he and his son will now be living in house and has agreement with binder technician to stay there for a low rent and do work on the house OR C/S negative Wound surface C/S MRSA, Enterococcus and Acinetobacter Antibiotics: Zosyn Vancomycin Lines: No evidence of infection Past Medical History: Hip fracture (Acute) Cirrhosis of liver (Acute) COPD (chronic obstructive pulmonary disease) (Acute) CHF (congestive heart failure) (Acute) Hypertension (Acute) Diabetes (Acute) Osteomyelitis due to secondary diabetes (Acute) Amputated toe of left foot Hepatitis C Hip fracture H/O hemorrhoidectomy Hx of tonsillectomy Allergies/Adverse Reactions: Allergies codeine Allergy (Severe, Verified 09/25/17 15:29) NAUSEA Objective Vital Signs 09/28/17 16:00 09/28/17 20:00 09/29/17 00:00 Temperature 98.3 F 98.6 F 98.4 F Pulse Rate 46 L 50 L 44 L Respiratory Rate 20 11 L 11 L Blood Pressure 139/68 140/71 Pulse Oximetry 98 93 L 09/29/17 04:00 09/29/17 08:00 Temperature 96.6 F L 97.8 F Pulse Rate 55 L 49 L Respiratory Rate 15 16 Blood Pressure 135/61 132/60 Pulse Oximetry 100 100 Intake & Output 09/28/17 09/29/17 09/29/17 18:59 06:59 18:59 Intake Total 2592.5 / 2592.5 820 / 820 Output Total 2950 / 2950 1999 Balance -357.5 / -357.5 -1180 / -1180 Weight 65.5 kg Intake: IV 362.5 / 362.5 100 / 100 Zosyn 2.25 GM Premix 50 ML @ 100 / 100 100 / 100 100 mls/hr IV.SIG Q6H [facility] Rx#: [id number] Vancomycin Inj 1,250 MG In NS 262.5 / 262.5 Inj 250 ML @ 262.5 mls/hr IV. SIG Q24H [facility] Rx#:[id number] Oral 1780 / 1780 720 / 720 Anesthesia Amount 350 / 350 0 / 0 Other 100 / 100 0 / 0 Output: Urine 2950 / 2950 1999 Other: # Voids 3 5 Date of Last Bowel Movement 09/28/17 09/28/17 09/28/17 # Bowel Movements 0 0 09/28/17 04:37 Blood - Peripheral Aerobic Blood Culture - Preliminary No growth in 1 day 09/28/17 04:37 Blood - Peripheral Anaerobic Blood Culture - Preliminary No growth in 1 day 09/28/17 04:40 Blood - Peripheral Aerobic Blood Culture - Preliminary No growth in 1 day 09/28/17 04:40 Blood - Peripheral Anaerobic Blood Culture - Preliminary No growth in 1 day 09/25/17 12:02 Blood - Peripheral Aerobic Blood Culture - Final Corynebacterium not 09/25/17 12:02 Blood - Peripheral Anaerobic Blood Culture - Preliminary No growth in 4 days 09/25/17 11:57 Blood - Peripheral Aerobic Blood Culture - Final Corynebacterium not 09/25/17 11:57 Blood - Peripheral Anaerobic Blood Culture - Preliminary No growth in 4 days 09/26/17 10:30 Wound - Foot Gram Stain - Final 09/26/17 10:30 Wound - Foot Wound Culture - Final Light growth normal skin myron No anaerobes isolated 09/26/17 10:30 Wound - Toe Gram Stain - Final 09/26/17 10:30 Wound - Toe Wound Culture - Final No growth in 72 hours (aerobically and anaerobically ) 09/25/17 11:57 Abscess - Foot Gram Stain - Final 09/25/17 11:57 Abscess - Foot Wound Culture - Preliminary Acinetobacter clarence cplx/haemol S. aureus MRSA Group D Enterococcus 09/26/17 10:30 Wound - Foot Acid Fast Bacilli Smear - Final No acid fast bacilli seen 09/26/17 10:30 Wound - Foot Mycobacterial Culture - Pending 09/26/17 10:30 Wound - Toe Acid Fast Bacilli Smear - Final No acid fast bacilli seen 09/26/17 10:30 Wound - Toe Mycobacterial Culture - Pending 09/26/17 10:30 Wound - Foot Fungal Smear - Final No fungal elements seen 09/26/17 10:30 Wound - Foot Fungal Culture - Pending 09/26/17 10:30 Wound - Toe Fungal Smear - Final No fungal elements seen 09/26/17 10:30 Wound - Toe Fungal Culture - Pending Lab - Hematology Results 09/28/17 09/29/17 04:40 06:21 WBC 7.5 5.1 RBC 3.01 L 4.76 Hgb 8.7 L 13.7 D Hct 26.6 L 42.4 MCV 88.4 89.1 MCH 28.9 28.8 MCHC 32.7 32.4 RDW 14.3 14.2 Plt Count 185 116 L D MPV 8.2 8.5 Neut % (Auto) 58.6 37.6 Lymph % (Auto) 29.2 48.0 H Beauregard % (Auto) 8.2 H 7.7 Eos % (Auto) 3.7 6.3 H Baso % (Auto) 0.3 0.4 Neut # (Auto) 4.4 1.9 Lymph # (Auto) 2.2 2.4 Bea[place]gard # (Auto) 0.6 0.4 Eos # (Auto) 0.3 0.3 Baso # (Auto) 0.0 0.0 WBC Differential . . Differential Comment Auto diff final Auto diff final Lab - Chemistry Results 09/27/17 09/27/17 09/28/17 18:17 22:17 04:40 Sodium 140 Potassium 4.5 D Chloride 105 Carbon Dioxide 31.3 Anion Gap 4 L BUN 20 H Creatinine 1.23 Estimated GFR 60 L POC Glucose 77 100 Random Glucose 90 Calcium 8.5 Troponin I 09/28/17 09/28/17 09/28/17 10:55 12:00 17:34 Sodium Potassium Chloride Carbon Dioxide Anion Gap BUN Creatinine Estimated GFR POC Glucose 94 72 Random Glucose Calcium Troponin I 0.03 09/28/17 09/29/17 09/29/17 19:45 03:05 06:21 Sodium 141 Potassium 4.7 Chloride 103 Carbon Dioxide 32.3 H Anion Gap 6 BUN 21 H Creatinine 1.24 Estimated GFR 60 L POC Glucose 126 H 96 Random Glucose 64 L Calcium 8.3 L Troponin I Imaging: ITS Impressions Chest X-Ray 09/25/17 13:18 CONCLUSION: No acute cardiopulmonary disease. Foot MRI 09/25/17 16:54 CONCLUSION: 1. Subtle marrow edema in the remaining proximal fifth metatarsal 2. Lack of intravenous contrast makes interpretation 3. Tagged white cell study may be of benefit. Foot X-Ray 09/26/17 00:00 CONCLUSION: Interval amputation since the prior examination. Physical Exam: GENERAL: awake and alert, not in respiratory distress. SKIN: Cool and dry. No generalized rash, no ecchymoses and no evidence of embolic lesions. HEAD: Atraumatic. Normocephalic. No temporal wasting, or tenderness. EYES: Grandin conjunctiva. No petechia or hemorrhage. Pupils equal, round and reactive to light. Extraocular movements full and intact. No scleral icterus. No injection or drainage. EARS, NOSE AND THROAT: Nose without bleeding or purulent nasal discharge. Mucous membranes pink and moist. No oral lesions noted. Poor dentition. NECK: Trachea midline. Supple and not tender, no meningeal signs CARDIOVASCULAR: Regular rate and rhythm. No murmurs, rubs or gallops heard RESPIRATORY: Clear to auscultation. Breath sounds equal bilaterally. No rales , wheezing or rhonchi ABDOMEN: Soft, non-tender, nondistended. Bowel sounds present and normoactive. No guarding. No rebound. No organomegaly. EXTREMITIES: No clubbing, cyanosis. Has intact dry dressing to his L foot. Wounds look goor, no purulence. No calf tenderness. Well perfused and warm. NEUROLOGICAL: Awake and alert. Cranial nerves grossly intact. Motor grossly within normal limits. PSYCHIATRIC: Normal affect, calm and cooperative. LINE: No evidence of infection Assessment and Plan - Plan Impression Osteo L second toe, S/P amputation Osteo L 5th MT, (+) osteo of remaining wound Wound dehiscence lateral foot Previous MRSA infection L foot Renal insufficiency, etiology? better Corynebacterium bacteremia DM Active polysubstance abuse, denies IVDU Recommendation Continue IV Vanco - pharmacy doing dosing - 6 weeks IV for osteo - FP to speak with podiatry - if no further surgery planned then 6 weeks IV Change Zosyn to Cipro, give 2 weeks on D/C Follow BC Echo to evaluate valves OK to place PICC D/W RN D/W FP team Explained plan to patient Spoke with CM I will be off 09/30-10/03, other ID MD covering in my absence
--- NOTE | 2017-09-29 13:48 | P.DCO ---
Post Hospital Infusion Therapy Location of Infusion Therapy: Ambulatory Infusion Therapy Order Patient Weight: 65.5 kg Allergies codeine Allergy (Severe, Verified 09/25/17 15:29) NAUSEA - Diagnosis (1) Osteomyelitis Code(s): M86.9 - Osteomyelitis, unspecified - Administer Medication Vancomycin Stop Treatment: 11/07/17 - Additional Information Additional Medications: IV Vanco 1.25 gm q24H Venous Access: PICC Line Additional Instructions: [x] Peripheral flush and dressing changes per protocol [x] Implanted port and central airline hostess: * Implanted port: 10 ml Normal Saline followed by 5 ml Heparin 100 units/ml Heparin flush after each use and monthly to maintain. [] May leave port accessed during therapy. [] May leave peripheral site accessed for duration of therapy. [x] If patient has SOB or respiratory distress, check oxygen saturation. If less than 90% or clinical signs of respiratory distress, administer oxygen at 2 L/min. via nasal cannula and notify physician. [x] Anaphylaxis/Reaction orders: * Stop infusion. * Keep IV line open with saline flush. * Notify physician. * Monitor vital signs every 15 minutes until symptoms resolve. * Check Oxygen saturation; Oxygen at 2 L/min. via nasal cannula if less than 90% or clinical signs of respiratory distress. * Administer diphenhydramine (Benadryl) 25 mg IV STAT, (unless patient has received as pre-med). May repeat once, if necessary. * Solu-Cortef 250 mg IVP over 30-60 seconds, use 100 mg vials for each dissolution. * Epinephrine (1mg/1 ml) 0.3 mg subcutaneously or IVP now with any signs of respiratory distress. * Check with physician for new additional pre-med orders if patient is re- challenged or re-treated. [x] May remove PICC line when treatment complete. [x] If the patient is admitted to the hospital, the ED, or transferred via [facility] , complete transfer form including medication reconciliation order sheet. Weekly Labs: CBC w/diff, Creatinine, Vancomycin Trough (Labs every Wednesday, copy to mn.) (1) Osteomyelitis Qualifiers: Osteomyelitis type: unspecified type Osteomyelitis location: foot Laterality : left Qualified Code(s): M86.9 - Osteomyelitis, unspecified
[2017-09-29] MEDS: Insulin NovoLOG Aspart Correctional Sugar Inj SQ SCH ×3 (18:33→20:22)
[2017-09-30] MEDS: Piperacil/Tazo 2.25 GM Premix 50 ML IV.SIG SCH ×5 (01:15→23:25)
[2017-09-30 04:49] LABS: Baso % (Auto) 0.6 % (0.0-2.0); Eos # (Auto) 0.4 th/mm3 (0.0-0.4); Eos % (Auto) 6.2 % (0.0-4.0); Hemoglobin 9.2 gm/dL (13.0-17.0); Lymph % (Auto) 42.2 % (9.0-44.0); Mean Corpuscular HGB Conc 32.8 % (32.0-36.0); Mean Corpuscular Hemoglobin 28.8 pg (27.0-34.0); Mean Corpuscular Volume 87.7 fL (80.0-100.0); Mean Platelet Volume 8.1 fL (7.0-11.0); Mono # (Auto) 0.7 th/mm3 (0.0-0.9); Mono % (Auto) 9.8 % (0.0-8.0); Neut % (Auto) 41.2 % (16.0-70.0); Platelet Count 205 th/mm3 (150-450); Red Blood Count 3.19 mil/mm3 (4.50-5.90); Red Cell Distribution Width 14.1 % (11.6-17.2); White Blood Count 7.2 th/mm3 (4.0-11.0)
[2017-09-30 05:02] LABS: Calcium 8.5 mg/dL (8.5-10.1); Carbon Dioxide 31.9 meq/L (21.0-32.0); Potassium 4.4 meq/L (3.5-5.1)
[2017-09-30] MEDS: Chlorhexidine Gluconate 2% 1 Pack (2 Cloths) TOPICAL SCH (05:51)
[2017-09-30] MEDS: Insulin NovoLOG Aspart Correctional Sugar Inj SQ SCH ×3 (08:00→19:44)
[2017-09-30] MEDS: Heparin - SQ 10,000 UNITS/ML Vial SQ SCH ×2 (09:20→23:25)
[2017-09-30] MEDS: Gabapentin 300 MG Capsule PO SCH ×2 (09:21→23:26)
[2017-09-30] MEDS: Methadone 10 MG Tablet PO SCH (09:21)
--- NOTE | 2017-09-30 11:50 | P.PNFP ---
Subjective Interval history: Patient seen and examined this morning. No acute events overnight. Patient denies any complaints or concerns today. States pain is stable. Denies any bleeding or drainage from his feet. Denies any dizziness. Denies any chest pain, shortness of breath, abdominal pain, fever/chills, leg pain. <FelyDidier callaway - 09/30/17 11:50> Results - Labs Result diagrams: 09/30/17 04:05 09/30/17 04:05 <Gucci Grayson - 09/30/17 20:59> Abnormal lab results 09/30/17 09/30/17 09/30/17 Range/Units 04:05 04:05 14:07 RBC 3.19 L (4.50-5.90) mil/mm3 Hgb 9.2 L D (13.0-17.0) gm/dL Hct 28.0 L (39.0-51.0) % Cook % (Auto) 9.8 H (0.0-8.0) % Eos % (Auto) 6.2 H (0.0-4.0) % BUN 24 H (7-18) mg/dL Creatinine 1.35 H (0.60-1.30) mg/dL Estimated GFR 54 L (>89) mL/min POC Glucose (68-110) mg/dl Vancomycin Trough 16.4 H (5.0-10.0) mcg/mL 09/30/17 09/30/17 Range/Units 17:51 20:02 RBC (4.50-5.90) mil/mm3 Hgb (13.0-17.0) gm/dL Hct (39.0-51.0) % Cook % (Auto) (0.0-8.0) % Eos % (Auto) (0.0-4.0) % BUN (7-18) mg/dL Creatinine (0.60-1.30) mg/dL Estimated GFR (>89) mL/min POC Glucose 63 L 146 H (68-110) mg/dl Vancomycin Trough (5.0-10.0) mcg/mL Short CBC 09/30/17 Range/Units 04:05 WBC 7.2 (4.0-11.0) th/mm3 Hgb 9.2 L D (13.0-17.0) gm/dL Hct 28.0 L (39.0-51.0) % Plt Count 205 D (150-450) th/mm3 [facility] 09/30/17 04:05 Sodium 140 Potassium 4.4 Chloride 102 Carbon Dioxide 31.9 BUN 24 H Creatinine 1.35 H Calcium 8.5 <Gucci Grayson - 09/30/17 20:59> Abnormal lab results 09/29/17 09/30/17 09/30/17 Range/Units 20:21 04:05 04:05 RBC 3.19 L (4.50-5.90) mil/mm3 Hgb 9.2 L D (13.0-17.0) gm/dL Hct 28.0 L (39.0-51.0) % Cook % (Auto) 9.8 H (0.0-8.0) % Eos % (Auto) 6.2 H (0.0-4.0) % BUN 24 H (7-18) mg/dL Creatinine 1.35 H (0.60-1.30) mg/dL Estimated GFR 54 L (>89) mL/min POC Glucose 145 H (68-110) mg/dl Short CBC 09/30/17 Range/Units 04:05 WBC 7.2 (4.0-11.0) th/mm3 Hgb 9.2 L D (13.0-17.0) gm/dL Hct 28.0 L (39.0-51.0) % Plt Count 205 D (150-450) th/mm3 [facility] 09/30/17 04:05 Sodium 140 Potassium 4.4 Chloride 102 Carbon Dioxide 31.9 BUN 24 H Creatinine 1.35 H Calcium 8.5 <iDdier Mota - 09/30/17 11:50> Physical Exam Vital signs: Vital Signs 09/30/17 00:00 09/30/17 04:00 09/30/17 08:00 Temperature 98.4 F 98.9 F 98.8 F Pulse Rate 44 L 39 L 38 L Respiratory Rate 20 20 20 Blood Pressure 155/76 H 104/57 L 104/64 Pulse Oximetry 100 100 99 09/30/17 08:25 09/30/17 10:30 09/30/17 12:00 Temperature 98.7 F Pulse Rate 38 L Respiratory Rate 14 20 Blood Pressure 141/76 H Pulse Oximetry 100 99 09/30/17 16:00 Temperature 98.3 F Pulse Rate 50 L Respiratory Rate 20 Blood Pressure 126/62 Pulse Oximetry 98 Intake & Output 09/30/17 09/30/17 10/01/17 06:59 18:59 06:59 Intake Total 1763 / 1763 1050 / 1050 263 / 263 Output Total 500 / 500 2500 / 2500 Balance 1263 / 1263 -1450 / -1450 263 / 263 Weight 65.5 kg Intake: IV 563 / 563 50 / 50 263 / 263 Zosyn 2.25 GM Premix 50 ML @ 300 / 300 50 / 50 100 mls/hr IV.SIG Q6H [facility]ON Rx#: [id number] Vancomycin Inj 1,250 MG In NS 263 / 263 263 / 263 Inj 250 ML @ 262.5 mls/hr IV. SIG Q24H [facility] Rx#:[id number] Oral 1200 / 1200 1000 / 1000 Output: Urine 2500 / 2500 Urine/Stool Mix 500 / 500 Other: # Voids 5 Date of Last Bowel Movement 09/29/17 09/29/17 <Gucci Grayson - 09/30/17 20:59> Vital Signs 09/29/17 16:00 09/29/17 20:00 09/30/17 00:00 Temperature 97.8 F 97.9 F 98.4 F Pulse Rate 59 L 67 44 L Respiratory Rate 20 20 20 Blood Pressure 158/62 H 138/75 155/76 H Pulse Oximetry 100 100 09/30/17 04:00 09/30/17 08:25 09/30/17 10:30 Temperature 98.9 F Pulse Rate 39 L Respiratory Rate 20 14 Blood Pressure 104/57 L Pulse Oximetry 100 100 Intake & Output 09/29/17 09/30/17 09/30/17 18:59 06:59 18:59 Intake Total 50 / 50 1763 / 1763 Output Total 500 / 500 Balance 50 / 50 1263 / 1263 Weight 65.5 kg 65.5 kg Intake: IV 50 / 50 563 / 563 Zosyn 2.25 GM Premix 50 ML @ 50 / 50 300 / 300 100 mls/hr IV.SIG Q6H [facility] Rx#: [id number] Vancomycin Inj 1,250 MG In NS 263 / 263 Inj 250 ML @ 262.5 mls/hr IV. SIG Q24H [facility] Rx#:[id number] Oral 1200 / 1200 Output: Urine/Stool Mix 500 / 500 Other: # Voids 5 Date of Last Bowel Movement 09/28/17 09/29/17 <Didier Mota Adrianna - 09/30/17 11:50> Narrative: GENERAL: Thin male lying in bed. CARDIOVASCULAR: Regular rhythm, bradycardic without murmurs, gallops, or rubs. RESPIRATORY: Breath sounds equal bilaterally. No accessory muscle use. GASTROINTESTINAL: Abdomen soft, non-tender, nondistended. Extremities: No pain in calves on palpation. Left foot dressed and wrapped in Ayaan bandage, clean dry intact. Right foot with gauze and bandaging in place, minimal serosanguineous drainage from site of debridement. Patient able to move toes. <Didier Mota Adrianna - 09/30/17 11:50> Assessment and Plan - Assessment (1) Osteomyelitis Code(s): M86.9 - Osteomyelitis, unspecified Status: Acute (2) Bacteremia Code(s): R78.81 - Bacteremia Status: Acute (3) Chest pain Code(s): R07.9 - Chest pain, unspecified Status: Acute (4) DANILO (acute kidney injury) Code(s): N17.9 - Acute kidney failure, unspecified Status: Acute (5) COPD (chronic obstructive pulmonary disease) Code(s): J44.9 - Chronic obstructive pulmonary disease, unspecified Status: Acute (6) CHF (congestive heart failure) Code(s): I50.9 - Heart failure, unspecified Status: Acute (7) Hypertension Code(s): I10 - Essential (primary) hypertension Status: Acute (8) History of substance abuse Code(s): Z87.898 - Personal history of other specified conditions Status: Acute (9) Diabetes Code(s): E11.9 - Type 2 diabetes mellitus without complications Status: Acute (10) Drug abuse Code(s): F19.10 - Other psychoactive substance abuse, uncomplicated Status: Acute (11) Nutrition, metabolism, and development symptoms Code(s): R63.8 - Other symptoms and signs concerning food and fluid intake Status: Acute <Gucci Grayson - 09/30/17 20:59> (1) Osteomyelitis Code(s): M86.9 - Osteomyelitis, unspecified Status: Acute Plan: POD 4 from left to amputation and left lateral foot excision. Day 2 post debridement of right foot. -Continue Zosyn 2.25 every 6 hours and vancomycin 1 g every 24 hours -Needs 6 weeks IV -Change Zosyn to Cipro, 2 weeks upon d/c -Follow-up with podiatry and infectious disease regarding personal adequate margins of operative sample. -Blood cultures preliminary show pleomorphic gram-positive rods, corynebacterium -Wound culture of the second digit ordered, no organisms seen -Infectious disease consulted for osteomyelitis-appreciate recs History: Recurrent osteomyelitis of stump of second digit on left foot. 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 Patient did not complete outpatient antibiotics for recent osteomyelitis hospitalization. MRI of the left foot showed marrow edema of the fifth metatarsal. S/P lft 2nd toe amputation 09/26, with excision of left lateral foot wound and bone biopsy. (2) Bacteremia Code(s): R78.81 - Bacteremia Status: Acute Plan: -blood cultures from 09/25/17- corynebacterium x2 samples. vancomycin susceptible -Second set 09/28 NGTD (3) Chest pain Code(s): R07.9 - Chest pain, unspecified Status: Acute Plan: Continue with telemetry Chest pain with minimal exertion recently with elevated troponin of 0.03 -Troponin 0.03 stable from admission troponin. Ekg showed no Aaute changes. -No active chest pain on exam -Likely due to cocaine use as well as acute kidney injury on admission (4) DANILO (acute kidney injury) Code(s): N17.9 - Acute kidney failure, unspecified Status: Acute Plan: Likely prerenal due to infection and acute illness. Improving -Continue p.o. hydration -Repeat BMP tomorrow follow kidney function -Stable around 1.2-1.3 Patient's baseline creatinine around 1 (5) COPD (chronic obstructive pulmonary disease) Code(s): J44.9 - Chronic obstructive pulmonary disease, unspecified Status: Acute Plan: Chronic: Duo nebs ordered as needed -Will likely need albuterol inhaler on discharge. (6) CHF (congestive heart failure) Code(s): I50.9 - Heart failure, unspecified Status: Acute Plan: -Continue to monitor for signs of fluid overload -No signs of acute exacerbation -Amlodipine and lisinopril held as patient is currently hypotensive History: Most recent echocardiogram on file is from 01/17/2013 showing an ejection fraction of 60% (7) Hypertension Code(s): I10 - Essential (primary) hypertension Status: Acute Plan: Hold home lisinopril and amlodipine for now as patient is hypotensive. (8) History of substance abuse Code(s): Z87.898 - Personal history of other specified conditions Status: Acute Plan: UDS positive for opiates, benzodiazepines, cocaine Continue patient's methadone 220 mg per day Continue to monitor for signs of withdrawal (9) Diabetes Code(s): E11.9 - Type 2 diabetes mellitus without complications Status: Acute Plan: Sliding scale insulin Bedside blood glucose checks Diabetic diet (10) Drug abuse Code(s): F19.10 - Other psychoactive substance abuse, uncomplicated Status: Acute Plan: Patient with a history of cocaine abuse and endorses recent cocaine use 2 days prior to admission -UDS positive for opiates, benzodiazepines, cocaine -Monitor for signs of withdrawal (11) Nutrition, metabolism, and development symptoms Code(s): R63.8 - Other symptoms and signs concerning food and fluid intake Status: Acute Plan: Diet: Diabetic diet Fluids: Bolus NS for BP DVT prophylaxis: SCD, Haparin 5000U BID <Didier Mota - 09/30/17 11:41> - Attending Attestation Pt. examined independently and case discussed with resident physicians. I have read the above note and agree with the assessment and plan as discussed with me. I was involved in all medical decision making for this patient. Gucci Grayson MD <Gucci Grayson - 09/30/17 20:59> <Didier Mota - Last Filed: 09/30/17 11:41> (1) Osteomyelitis Qualifiers: Osteomyelitis type: unspecified type Osteomyelitis location: foot Laterality : left Qualified Code(s): M86.9 - Osteomyelitis, unspecified (9) Diabetes Qualifiers: Diabetes mellitus type: type 2 Diabetes mellitus longterm insulin use: without longterm use Diabetes mellitus complication status: with other specified complication Qualified Code(s): E11.69 - Type 2 diabetes mellitus with other specified complication <Gucci Grayson - Last Filed: 09/30/17 20:59> (1) Osteomyelitis Qualifiers: Osteomyelitis type: unspecified type Osteomyelitis location: foot Laterality : left Qualified Code(s): M86.9 - Osteomyelitis, unspecified (9) Diabetes Qualifiers: Diabetes mellitus type: type 2 Diabetes mellitus longterm insulin use: without emt intermediate use Diabetes mellitus complication status: with other specified complication Qualified Code(s): E11.69 - Type 2 diabetes mellitus with other specified complication <Didier Mota - Last Filed: 09/30/17 11:41> (1) Osteomyelitis Qualifiers: Osteomyelitis type: unspecified type Osteomyelitis location: foot Laterality : left Qualified Code(s): M86.9 - Osteomyelitis, unspecified (9) Diabetes Qualifiers: Diabetes mellitus type: type 2 Diabetes mellitus longterm insulin use: without emt intermediate use Diabetes mellitus complication status: with other specified complication Qualified Code(s): E11.69 - Type 2 diabetes mellitus with other specified complication <Gucci Grayson Last Filed: 09/30/17 20:59> (1) Osteomyelitis Qualifiers: Osteomyelitis type: unspecified type Osteomyelitis location: foot Laterality : left Qualified Code(s): M86.9 - Osteomyelitis, unspecified (9) Diabetes Qualifiers: Diabetes mellitus type: type 2 Diabetes mellitus emt intermediate insulin use: without emt intermediate use Diabetes mellitus complication status: with other specified complication Qualified Code(s): E11.69 - Type 2 diabetes mellitus with other specified complication
[2017-09-30] MEDS ORDERED: Pharmacy Ordered Lab Info OTHER ONE (12:45)
--- NOTE | 2017-09-30 13:40 | ECG ---
Date Performed: 09/30/2017 Time Performed: 08:38:54 PTAGE: 57 years EKG: SINUS BRADYCARDIA BORDERLINE ECG Since the PREVIOUS TRACING , no significant change noted PREVIOUS TRACIN09/28/2017 09.54 DOCTOR: Wyatt Capone Interpretating Date/Time 09/30/2017 13:39:28
[2017-09-30] MEDS: Vancomycin Inj 1,250 MG in Sodium Chlor 0.9% Inj 250 ML IV.SIG SCH (14:48)
[2017-10-01 05:59] LABS: Baso % (Auto) 0.6 % (0.0-2.0); Eos # (Auto) 0.5 th/mm3 (0.0-0.4); Eos % (Auto) 7.6 % (0.0-4.0); Hematocrit 30.3 % (39.0-51.0); Hemoglobin 10.1 gm/dL (13.0-17.0); Lymph % (Auto) 42.9 % (9.0-44.0); Mean Corpuscular HGB Conc 33.2 % (32.0-36.0); Mean Corpuscular Hemoglobin 29.3 pg (27.0-34.0); Mean Corpuscular Volume 88.3 fL (80.0-100.0); Mean Platelet Volume 8.3 fL (7.0-11.0); Mono # (Auto) 0.6 th/mm3 (0.0-0.9); Mono % (Auto) 9.2 % (0.0-8.0); Neut # (Auto) 2.7 th/mm3 (1.8-7.7); Neut % (Auto) 39.7 % (16.0-70.0); Platelet Count 235 th/mm3 (150-450); Red Blood Count 3.43 mil/mm3 (4.50-5.90); Red Cell Distribution Width 14.2 % (11.6-17.2); White Blood Count 6.9 th/mm3 (4.0-11.0)
[2017-10-01 06:13] LABS: Calcium 8.8 mg/dL (8.5-10.1); Carbon Dioxide 30.5 meq/L (21.0-32.0); Potassium 4.9 meq/L (3.5-5.1)
[2017-10-01] MEDS: Insulin NovoLOG Aspart Correctional Sugar Inj SQ SCH ×2 (08:11→13:20)
[2017-10-01] MEDS: Piperacil/Tazo 2.25 GM Premix 50 ML IV.SIG SCH ×2 (08:12→13:21)
[2017-10-01] MEDS: Heparin - SQ 10,000 UNITS/ML Vial SQ SCH (08:12)
[2017-10-01] MEDS: Methadone 10 MG Tablet PO SCH (08:13)
[2017-10-01] MEDS: Gabapentin 300 MG Capsule PO SCH (08:13)
--- NOTE | 2017-10-01 10:43 | P.PNFP ---
Subjective Interval history: Mr Alva had a blood glucose of 63 one time yesterday. He was asymptomatic at the time. He was given orange juice and crackers. No further overnight events. He endorses pain of both feet, stable from prior days. He denies active chest pain, shortness of breath, nausea, vomiting, fever, chills. <Iliana Matute - 10/01/17 10:42> Results - Labs Result diagrams: 10/01/17 04:46 10/01/17 04:46 <Gucci Grayson - 10/01/17 15:22> Abnormal lab results 09/30/17 09/30/17 10/01/17 Range/Units 17:51 20:02 04:46 RBC 3.43 L (4.50-5.90) mil/mm3 Hgb 10.1 L (13.0-17.0) gm/dL Hct 30.3 L (39.0-51.0) % [place] % (Auto) 9.2 H (0.0-8.0) % Eos % (Auto) 7.6 H (0.0-4.0) % Eos # (Auto) 0.5 H (0.0-0.4) th/mm3 BUN (7-18) mg/dL Creatinine (0.60-1.30) mg/dL Estimated GFR (>89) mL/min POC Glucose 63 L 146 H (68-110) mg/dl Random Glucose (74-106) mg/dL 10/01/17 Range/Units 04:46 RBC (4.50-5.90) mil/mm3 Hgb (13.0-17.0) gm/dL Hct (39.0-51.0) % [place] % (Auto) (0.0-8.0) % Eos % (Auto) (0.0-4.0) % Eos # (Auto) (0.0-0.4) th/mm3 BUN 23 H (7-18) mg/dL Creatinine 1.32 H (0.60-1.30) mg/dL Estimated GFR 56 L (>89) mL/min POC Glucose (68-110) mg/dl Random Glucose 58 L (74-106) mg/dL Short CBC 10/01/17 Range/Units 04:46 WBC 6.9 (4.0-11.0) th/mm3 Hgb 10.1 L (13.0-17.0) gm/dL Hct 30.3 L (39.0-51.0) % Plt Count 235 (150-450) th/mm3 [facility] 10/01/17 04:46 Sodium 138 Potassium 4.9 Chloride 101 Carbon Dioxide 30.5 BUN 23 H Creatinine 1.32 H Calcium 8.8 <Kenan,Gucci - 10/01/17 15:22> Abnormal lab results 09/30/17 09/30/17 09/30/17 Range/Units 14:07 17:51 20:02 RBC (4.50-5.90) mil/mm3 Hgb (13.0-17.0) gm/dL Hct (39.0-51.0) % [place] % (Auto) (0.0-8.0) % Eos % (Auto) (0.0-4.0) % Eos # (Auto) (0.0-0.4) th/mm3 BUN (7-18) mg/dL Creatinine (0.60-1.30) mg/dL Estimated GFR (>89) mL/min POC Glucose 63 L 146 H (68-110) mg/dl Random Glucose (74-106) mg/dL Vancomycin Trough 16.4 H (5.0-10.0) mcg/mL 10/01/17 10/01/17 Range/Units 04:46 04:46 RBC 3.43 L (4.50-5.90) mil/mm3 Hgb 10.1 L (13.0-17.0) gm/dL Hct 30.3 L (39.0-51.0) % [place] % (Auto) 9.2 H (0.0-8.0) % Eos % (Auto) 7.6 H (0.0-4.0) % Eos # (Auto) 0.5 H (0.0-0.4) th/mm3 BUN 23 H (7-18) mg/dL Creatinine 1.32 H (0.60-1.30) mg/dL Estimated GFR 56 L (>89) mL/min POC Glucose (68-110) mg/dl Random Glucose 58 L (74-106) mg/dL Vancomycin Trough (5.0-10.0) mcg/mL Short CBC 08/03/18 Range/Units 04:46 WBC 6.9 (4.0-11.0) th/mm3 Hgb 10.1 L (13.0-17.0) gm/dL Hct 30.3 L (39.0-51.0) % Plt Count 235 (150-450) th/mm3 BMP 10/01/17 04:46 Sodium 138 Potassium 4.9 Chloride 101 Carbon Dioxide 30.5 BUN 23 H Creatinine 1.32 H Calcium 8.8 <Iliana Matute - 10/01/17 10:42> Physical Exam Vital signs: Vital Signs 09/30/17 16:00 09/30/17 16:01 09/30/17 16:16 Temperature 98.3 F Pulse Rate 47 L 48 L 51 L Respiratory Rate 20 Blood Pressure 126/62 146/72 H 126/62 Pulse Oximetry 98 09/30/17 17:00 09/30/17 18:00 09/30/17 18:01 Temperature Pulse Rate 45 L 50 L 49 L Respiratory Rate Blood Pressure 154/72 H Pulse Oximetry 09/30/17 19:00 09/30/17 20:00 09/30/17 20:01 Temperature 99 F Pulse Rate 52 L 56 L 55 L Respiratory Rate 18 Blood Pressure 155/59 H 155/59 H Pulse Oximetry 96 09/30/17 21:00 09/30/17 22:00 09/30/17 22:04 Temperature Pulse Rate 56 L 48 L 49 L Respiratory Rate Blood Pressure 122/63 Pulse Oximetry 09/30/17 23:00 10/01/17 00:00 10/01/17 01:00 Temperature 98.8 F Pulse Rate 46 L 47 L 45 L Respiratory Rate 17 Blood Pressure 118/61 Pulse Oximetry 98 10/01/17 02:00 10/01/17 03:00 10/01/17 04:00 Temperature 98.8 F Pulse Rate 47 L 45 L 41 L Respiratory Rate 17 Blood Pressure 111/66 Pulse Oximetry 98 10/01/17 05:00 10/01/17 05:59 10/01/17 06:00 Temperature Pulse Rate 44 L 41 L Respiratory Rate Blood Pressure 94/64 L Pulse Oximetry 10/01/17 06:02 10/01/17 07:00 10/01/17 08:00 Temperature 98.3 F Pulse Rate 56 L 44 L 44 L Respiratory Rate 18 Blood Pressure 97/60 L Pulse Oximetry 97 10/01/17 09:00 10/01/17 10:00 10/01/17 10:01 Temperature Pulse Rate 51 L 59 L 59 L Respiratory Rate Blood Pressure 108/73 Pulse Oximetry 10/01/17 10:57 10/01/17 11:00 10/01/17 12:00 Temperature Pulse Rate 65 57 L Respiratory Rate 18 Blood Pressure 160/77 H Pulse Oximetry 98 10/01/17 13:00 Temperature Pulse Rate 72 Respiratory Rate Blood Pressure Pulse Oximetry Intake & Output 09/30/17 10/01/17 10/01/17 18:59 06:59 18:59 Intake Total 1050 / 1050 1363 / 1363 50 / 50 Output Total 2500 / 2500 3000 / 3000 Balance -1450 / -1450 -1637 / -1637 50 / 50 Weight 65.4 kg 65.4 kg Intake: IV 50 / 50 363 / 363 50 / 50 Zosyn 2.25 GM Premix 50 ML @ 50 / 50 100 / 100 50 / 50 100 mls/hr IV.SIG Q6H LEON Rx#: [id number] Vancomycin Inj 1,250 MG In NS 263 / 263 Inj 250 ML @ 262.5 mls/hr IV. SIG Q24H LEON Rx#:[id number] Oral 1000 / 1000 1000 / 1000 Anesthesia Amount 0 / 0 Other 0 / 0 Output: Urine 2500 / 2500 2500 / 2500 Urine/Stool Mix 500 / 500 Other: # Voids 5 Date of Last Bowel Movement 09/29/17 09/29/17 10/01/17 # Bowel Movements 0 <Gucci Grayson - 10/01/17 15:22> Vital Signs 09/30/17 12:00 09/30/17 16:00 09/30/17 20:00 Temperature 98.7 F 98.3 F 99 F Pulse Rate 38 L 50 L 56 L Respiratory Rate 20 20 18 Blood Pressure 141/76 H 126/62 155/59 H Pulse Oximetry 99 98 96 10/01/17 00:00 10/01/17 04:00 Temperature 98.8 F 98.8 F Pulse Rate 47 L 47 L Respiratory Rate 17 17 Blood Pressure 118/61 118/61 Pulse Oximetry 98 98 Intake & Output 09/30/17 10/01/17 10/01/17 18:59 06:59 18:59 Intake Total 1050 / 1050 1363 / 1363 Output Total 2500 / 2500 3000 / 3000 Balance -1450 / -1450 -1637 / -1637 Weight 65.4 kg Intake: IV 50 / 50 363 / 363 Zosyn 2.25 GM Premix 50 ML @ 50 / 50 100 / 100 100 mls/hr IV.SIG Q6H LEON Rx#: [id number] Vancomycin Inj 1,250 MG In NS 263 / 263 Inj 250 ML @ 262.5 mls/hr IV. SIG Q24H LEON Rx#:[id number] Oral 1000 / 1000 1000 / 1000 Anesthesia Amount 0 / 0 Other 0 / 0 Output: Urine 2500 / 2500 2500 / 2500 Urine/Stool Mix 500 / 500 Other: # Voids 5 Date of Last Bowel Movement 09/29/17 09/29/17 10/01/17 # Bowel Movements 0 <Iliana Matute - 10/01/17 10:42> Narrative: GENERAL: Thin male lying in bed. CARDIOVASCULAR: Regular rhythm, bradycardic without murmurs, gallops, or rubs. RESPIRATORY: Isolated expiratory wheezing heart right upper lung field. Breath sounds equal bilaterally. No accessory muscle use. GASTROINTESTINAL: Abdomen soft, non-tender, nondistended. Extremities: No pain in calves on palpation. Left foot dressed and wrapped in Ayaan bandage, clean dry intact. Right foot with gauze and Ayaan bandaging in place , minimal serosanguineous drainage from site of debridement. Patient able to move toes. <Iliana Matute - 10/01/17 10:42> Assessment and Plan - Assessment (1) Osteomyelitis Code(s): M86.9 - Osteomyelitis, unspecified Status: Acute (2) Bacteremia Code(s): R78.81 - Bacteremia Status: Acute (3) Chest pain Code(s): R07.9 - Chest pain, unspecified Status: Acute (4) DANILO (acute kidney injury) Code(s): N17.9 - Acute kidney failure, unspecified Status: Acute (5) COPD (chronic obstructive pulmonary disease) Code(s): J44.9 - Chronic obstructive pulmonary disease, unspecified Status: Acute (6) CHF (congestive heart failure) Code(s): I50.9 - Heart failure, unspecified Status: Acute (7) Hypertension Code(s): I10 - Essential (primary) hypertension Status: Acute (8) History of substance abuse Code(s): Z87.898 - Personal history of other specified conditions Status: Acute (9) Diabetes Code(s): E11.9 - Type 2 diabetes mellitus without complications Status: Acute (10) Drug abuse Code(s): F19.10 - Other psychoactive substance abuse, uncomplicated Status: Acute (11) Nutrition, metabolism, and development symptoms Code(s): R63.8 - Other symptoms and signs concerning food and fluid intake Status: Acute <Gucci Grayson - 10/01/17 15:22> (1) Osteomyelitis Code(s): M86.9 - Osteomyelitis, unspecified Status: Acute Plan: POD 5 from left to amputation and left lateral foot excision. Day 3 post debridement of right foot. -Patient to receive PICC line today for infusions post discharge. -Continue Zosyn 2.25 every 6 hours and vancomycin 1 g every 24 hours -Needs 6 weeks IV -Change Zosyn to Cipro, 2 weeks upon d/c -Follow-up with podiatry and infectious disease regarding personal adequate margins of operative sample. -Blood cultures preliminary show pleomorphic gram-positive rods, corynebacterium -Wound culture of the second digit ordered, no organisms seen -Infectious disease consulted for osteomyelitis-appreciate recs History: Recurrent osteomyelitis of stump of second digit on left foot. 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 Patient did not complete outpatient antibiotics for recent osteomyelitis hospitalization. MRI of the left foot showed marrow edema of the fifth metatarsal. S/P lft 2nd toe amputation 09/26, with excision of left lateral foot wound and bone biopsy. (2) Bacteremia Code(s): R78.81 - Bacteremia Status: Acute Plan: -blood cultures from 09/25/17- corynebacterium x2 samples. vancomycin susceptible -Second set 09/28 NGTD (3) Chest pain Code(s): R07.9 - Chest pain, unspecified Status: Acute Plan: Continue with telemetry Chest pain with minimal exertion recently with elevated troponin of 0.03 -Troponin 0.03 stable from admission troponin. Ekg showed no Aaute changes. -No active chest pain on exam -Likely due to cocaine use as well as acute kidney injury on admission (4) DANILO (acute kidney injury) Code(s): N17.9 - Acute kidney failure, unspecified Status: Acute Plan: Likely prerenal due to infection and acute illness. Improving -Continue p.o. hydration -Repeat BMP tomorrow follow kidney function -Stable around 1.2-1.3 Patient's baseline creatinine around 1 (5) COPD (chronic obstructive pulmonary disease) Code(s): J44.9 - Chronic obstructive pulmonary disease, unspecified Status: Acute Plan: Chronic: Duo nebs ordered as needed -Will likely need albuterol inhaler on discharge. (6) CHF (congestive heart failure) Code(s): I50.9 - Heart failure, unspecified Status: Acute Plan: -Continue to monitor for signs of fluid overload -No signs of acute exacerbation -Amlodipine and lisinopril held as patient is currently hypotensive History: Most recent echocardiogram on file is from 01/17/2013 showing an ejection fraction of 60% (7) Hypertension Code(s): I10 - Essential (primary) hypertension Status: Acute Plan: Hold home lisinopril and amlodipine for now as patient is hypotensive. (8) History of substance abuse Code(s): Z87.898 - Personal history of other specified conditions Status: Acute Plan: UDS positive for opiates, benzodiazepines, cocaine Continue patient's methadone 220 mg per day Continue to monitor for signs of withdrawal (9) Diabetes Code(s): E11.9 - Type 2 diabetes mellitus without complications Status: Acute Plan: Sliding scale insulin Bedside blood glucose checks Diabetic diet (10) Drug abuse Code(s): F19.10 - Other psychoactive substance abuse, uncomplicated Status: Acute Plan: Patient with a history of cocaine abuse and endorses recent cocaine use 2 days prior to admission -UDS positive for opiates, benzodiazepines, cocaine -Monitor for signs of withdrawal (11) Nutrition, metabolism, and development symptoms Code(s): R63.8 - Other symptoms and signs concerning food and fluid intake Status: Acute Plan: Diet: Diabetic diet Fluids: Bolus NS for BP DVT prophylaxis: SCD, Heparin 5000U BID <Iliana Matute - 10/01/17 10:36> - Assessment and Plan Discussed Condition With: Cortez Grayson and Will <Iliana Matute - 10/01/17 10:42> - Attending Attestation Patient examined independently and case discussed with resident physicians I have read the above note and agree with the assessment/plan as discussed with me I was involved in all medical decision making for this patient Gucci Grayson MD <Gucci Grayson - 10/01/17 15:22> <Iliana Matute E - Last Filed: 10/01/17 10:36> (1) Osteomyelitis Qualifiers: Osteomyelitis type: unspecified type Osteomyelitis location: foot Laterality : left Qualified Code(s): M86.9 - Osteomyelitis, unspecified (9) Diabetes Qualifiers: Diabetes mellitus type: type 2 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 use: without residential use Diabetes mellitus complication status: with other specified complication Qualified Code(s): E11.69 - Type 2 diabetes mellitus with other specified complication <Gucci Grayson - Last Filed: 10/01/17 15:22> (1) Osteomyelitis Qualifiers: Osteomyelitis type: unspecified type Osteomyelitis location: foot Laterality : left Qualified Code(s): M86.9 - Osteomyelitis, unspecified (9) Diabetes Qualifiers: Diabetes mellitus type: type 2 Diabetes mellitus residential insulin use: without residential use Diabetes mellitus complication status: with other specified complication Qualified Code(s): E11.69 - Type 2 diabetes mellitus with other specified complication <Iliana Matute - Last Filed: 10/01/17 10:36> (1) Osteomyelitis Qualifiers: Osteomyelitis type: unspecified type Osteomyelitis location: foot Laterality : left Qualified Code(s): M86.9 - Osteomyelitis, unspecified (9) Diabetes Qualifiers: Diabetes mellitus type: type 2 Diabetes mellitus residential insulin use: without residential use Diabetes mellitus complication status: with other specified complication Qualified Code(s): E11.69 - Type 2 diabetes mellitus with other specified complication <Gucci Grayson - Last Filed: 10/01/17 15:22> (1) Osteomyelitis Qualifiers: Osteomyelitis type: unspecified type Osteomyelitis location: foot Laterality : left Qualified Code(s): M86.9 - Osteomyelitis, unspecified (9) Diabetes Qualifiers: Diabetes mellitus type: type 2 Diabetes mellitus residential insulin use: without termite treater helper use Diabetes mellitus complication status: with other specified complication Qualified Code(s): E11.69 - Type 2 diabetes mellitus with other specified complication
--- NOTE | 2017-10-01 12:31 | P.DCO ---
Post Hospital Infusion Therapy Location of Infusion Therapy: Ambulatory Infusion Therapy Order Patient Weight: 65.4 kg - Administer Medication Vancomycin Additional Dosing Instructions: 1.25 grams IV Q12 Hours Stop Treatment: 11/07/17 - Additional Information Additional Instructions: [x] Peripheral flush and dressing changes per protocol [x] Implanted port and central online trader: * Implanted port: 10 ml Normal Saline followed by 5 ml Heparin 100 units/ml Heparin flush after each use and monthly to maintain. [] May leave port accessed during therapy. [] May leave peripheral site accessed for duration of therapy. [x] If patient has SOB or respiratory distress, check oxygen saturation. If less than 90% or clinical signs of respiratory distress, administer oxygen at 2 L/min. via nasal cannula and notify physician. [x] Anaphylaxis/Reaction orders: * Stop infusion. * Keep IV line open with saline flush. * Notify physician. * Monitor vital signs every 15 minutes until symptoms resolve. * Check Oxygen saturation; Oxygen at 2 L/min. via nasal cannula if less than 90% or clinical signs of respiratory distress. * Administer diphenhydramine (Benadryl) 25 mg IV STAT, (unless patient has received as pre-med). May repeat once, if necessary. * Solu-Cortef 250 mg IVP over 30-60 seconds, use 100 mg vials for each dissolution. * Epinephrine (1mg/1 ml) 0.3 mg subcutaneously or IVP now with any signs of respiratory distress. * Check with physician for new additional pre-med orders if patient is re- challenged or re-treated. [x] May remove PICC line when treatment complete, after confirming with Physician. [x] If the patient is admitted to the hospital, the ED, or transferred via [facility] , complete transfer form including medication reconciliation order sheet. Weekly Labs: CBC w/diff, Creatinine, Vancomycin Trough ((Labs every Wednesday, copy to me.)) Additional Information: (Labs every Wednesday, copy to Dr. Fitzpatrick.) Allergies codeine Allergy (Severe, Verified 09/25/17 15:29) NAUSEA
[2017-10-01] MEDS: Vancomycin Inj 1,250 MG in Sodium Chlor 0.9% Inj 250 ML IV.SIG SCH (13:21)
--- NOTE | 2017-10-01 13:25 | MP ---
cc: AlicianiltonRobbie YANIQUE DATE OF OPERATION: 09/26/2017 DATE OF SURGERY: 09/26/2017 INDICATION FOR PROCEDURE: The patient presented with an ulcer with necrosis down to the bone and osteomyelitis of the left foot. He had exposed bone to the distal aspect of the left second toe for quite a while. He had MRI showing likely osteomyelitis to the distal aspect of the left second toe as well as possible osteomyelitis present to the residual left lateral foot to the base of the fifth metatarsal. He had history of also having a fifth ray amputation as well that had healed with an ulcer overlying that area. I discussed with the patient that he would benefit from undergoing amputation of the left second toe with excision of the wound to the left lateral foot and bone biopsy of that residual fifth metatarsal area. He agreed to move forward with the surgical procedure after risks, benefits and potential complications were explained in detail. DESCRIPTION OF PROCEDURE: He was seen in preop holding by myself, nursing staff and anesthesia, where the correct patient, side, and site were all confirmed to be correct and the left foot. He was then taken to the surgical suite in supine position. The left foot was prepped and draped in normal sterile fashion. Following timeouts as per facility protocol, the left foot was prepped and draped and then addressed at the second digit, where 2 semi-elliptical incisions were made in order to disarticulate the second digit at the level of the metatarsophalangeal joint. The second metatarsal head was also excised and sent as a biopsy of bone with the toe to pathology. No necrotic tissue was noted. No purulence was noted at this level as well. A culture was taken. Irrigation and closure were performed using 2-0 nylon suture and normal saline. Following this, the wound was excised to the lateral aspect of the left foot at the mid foot level at the base of the fifth metatarsal remnant. The wound itself was approximately 0.3 cm in diameter and appeared to be down to the fascia overlying bone. After the wound was excised, the underlying bone was debrided using a rongeur and a bone biter and a biopsy of that bone was sent of the residual fifth metatarsal with the wound to pathology. A culture was also sent from this area, followed by irrigation with normal saline and closure with 2-0 nylon. The patient tolerated the procedures and anesthesia well without complication and was taken back to the PACU with vital signs stable and vascular status intact to the remainder of the left foot. He will be nonweightbearing to the left foot in a surgical shoe and will await bone biopsy results. SHORT OPERATIVE NOTE SURGEON: Robbie Serrano DPM PRINTING SCREEN ASSEMBLER: Staff. PREOPERATIVE DIAGNOSES: 1. 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 2. Osteomyelitis of the left foot and ankle, specifically second toe. POSTOPERATIVE DIAGNOSES: 1. 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 2. Osteomyelitis of the left foot and ankle, specifically second toe. PROCEDURE PERFORMED: 1. Amputation of the left second toe with bone biopsy. 2. Excision of wound, left lateral foot with bone biopsy. PATHOLOGY: 1. Left second toe and metatarsal head to pathology and culture left second toe. 2. Wound and bone, left residual fifth metatarsal and culture left lateral foot. ESTIMATED BLOOD LOSS: 20 mL. ANESTHESIA: MAC plus local consisting of 20 mL 0.5% Marcaine plain. CONDITION: Stable to PACU. DISPOSITION: Nonweightbearing left foot in surgical shoe. Await bone biopsy results. YANIQUE Gutierrez/LISSETTE , 01:09 PM , 01:17 PM
[2017-10-01] MEDS ORDERED: Heparin Central Flush 100 UNIT/ML 5 ML Vial IV.FLUSH PRN (14:23)
[2017-10-02] MEDS ORDERED: Heparin Central Flush 100 UNIT/ML 5 ML Vial IV.FLUSH SCH (09:00)
--- NOTE | 2017-10-21 08:16 | P.DS ---
Date of admission: 09/25/17 13:26 Primary care physician: No Primary Care Physician Brief History from admission: 57-year-old male who is currently homeless presenting to the emergency department with a 2 day history of redness, swelling, and drainage from the second toe of his left foot. 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 At his last hospitalization, he was discharged from the hospital with oral antibiotics of clindamycin and Levaquin to complete a 10 day course, however he never did take these antibiotics. He states that he was doing well until 2 days ago when he noticed swelling, drainage, and purulence from the second toe. He does endorse some pain, however he does have significant neuropathy in his feet. He denies any fevers or chills. He denies any nausea or vomiting, he denies any systemic symptoms. As noted above, he is homeless and does not have a primary care physician. He does have a history of diabetes mellitus for which he is only taking metformin and has never been on insulin. He also endorses some chest pain/pressure with minimal activity over the course of the last several months. This is been progressive. He does have a history of cocaine use, most recently 2 days ago per the patient. DS: Diagnosis - Discharge Diagnosis (1) Osteomyelitis Status: Acute (2) Bacteremia Status: Acute (3) Chest pain Status: Acute (4) DANILO (acute kidney injury) Status: Acute (5) COPD (chronic obstructive pulmonary disease) Status: Chronic (6) CHF (congestive heart failure) Status: Acute (7) Hypertension Status: Chronic (8) History of substance abuse Status: Acute (9) Diabetes Status: Chronic (10) Drug abuse Status: Acute (11) Nutrition, metabolism, and development symptoms Status: Acute DS: Medications - Discharge Medications Prescriptions: albuterol sulfate [ProAir HFA] 2 puff INHALATION Q4H PRN #1 inhaler PRN Reason: Shortness Of Breath DS: Summary Hospital Course: Mr. Alva is a 57-year-old male who was admitted on 09/25 suspicion of osteomyelitis of the left foot. He had been recently discharged from the hospital with oral antibiotics for treatment of osteomyelitis but did not complete the antibiotic course. He was also endorsing minimal chest pain with exertion. He did have a history of cocaine use, and his UDS was positive for cocaine, opiates and benzodiazepines. ACS workup unremarkable. Podiatry and infectious disease consulted. Patient was placed on vancomycin and Zosyn. Blood culture positive for corynebacterium. Patient was taken to the OR for amputation of left second toe and bone biopsy of left lateral wound excision. Infectious disease recommended 6 weeks of IV vancomycin for osteomyelitis. Repeat blood cultures negative, wound cultures negative. PICC line was placed. Patient was DC'd home on 10/[address]ICC line in place and plans for outpatient infusion therapy of IV antibiotics. - Time Spent with Patient Total time spent providing and/or coordinating discharge services: Greater than 30 minutes - Quality: VTE Deep Vein Thrombosis/Pulmonary Embolism Present on Admission: No Results Procedures completed during hospitalization: 09/26-amputation of left second toe with biopsy and excision of left lateral wound with bone biopsy by Dr. Serrano 10/01-PICC line placement Labs on day of discharge: Preliminary micro results at discharge 09/26/17 10:30 Fungal Culture - Preliminary Wound - Foot No growth in 3 weeks 09/26/17 10:30 Mycobacterial Culture - Preliminary Wound - Foot No growth in 3 weeks 09/26/17 10:30 Fungal Culture - Preliminary Wound - Toe No growth in 3 weeks 09/26/17 10:30 Mycobacterial Culture - Preliminary Wound - Toe No growth in 3 weeks - Impressions ITS Impressions Chest X-Ray 09/25/17 13:18 CONCLUSION: No acute cardiopulmonary disease. Foot MRI 09/25/17 16:54 CONCLUSION: 1. Subtle marrow edema in the remaining proximal fifth metatarsal 2. Lack of intravenous contrast makes interpretation 3. Tagged white cell study may be of benefit. Foot X-Ray 09/26/17 00:00 CONCLUSION: Interval amputation since the prior examination. Discharge Plan - Discharge Disposition Patient Disposition: Discharge Home - Discharge Condition Condition: Stable - Discharge Order Discharge Orders: Discharge Order (Routine); Ordered 10/01/17 Ordered By: Iliana Matute - Physicians Team Primary Care Provider: Primary Care Physici,No Attending Provider: Gucci Grayson Other Providers: Rosanne Fitzpatrick MD ; Robbie Serrano DPM ; [employer] ; [employer],Insurance ; [facility],Agency
== END 2017-10-01 15:40 | disposition home or self-care (01) ==
LOC: NEPE 11:09 → NEDA 13:26 → HIMC 09-26 00:05
PROVIDERS: ADMIT Family Medicine; ATTEND Family Medicine

== ENCOUNTER 2017-10-09 21:43 | Inpatient (IN) ==
[2017-10-09] MEDS ORDERED: Acetaminophen 500 MG Tablet PO ONE (23:07)
[2017-10-09] MEDS ORDERED: Sod Chloride 0.9% Inj 1,000 ML IV.SIG ONE (23:07)
[2017-10-09 23:38] LABS: Baso % (Auto) 0.2 % (0.0-2.0); Eos % (Auto) 0.1 % (0.0-4.0); Hematocrit 26.1 % (39.0-51.0); Lymph # (Auto) 0.5 th/mm3 (1.0-4.8); Lymph % (Auto) 4.9 % (9.0-44.0); Mean Corpuscular HGB Conc 34.6 % (32.0-36.0); Mean Corpuscular Hemoglobin 30.3 pg (27.0-34.0); Mean Corpuscular Volume 87.4 fL (80.0-100.0); Mean Platelet Volume 8.1 fL (7.0-11.0); Mono # (Auto) 0.4 th/mm3 (0.0-0.9); Mono % (Auto) 4.7 % (0.0-8.0); Neut # (Auto) 8.5 th/mm3 (1.8-7.7); Neut % (Auto) 90.1 % (16.0-70.0); Platelet Count 180 th/mm3 (150-450); Red Blood Count 2.99 mil/mm3 (4.50-5.90); Red Cell Distribution Width 14.5 % (11.6-17.2); White Blood Count 9.4 th/mm3 (4.0-11.0)
--- NOTE | 2017-10-09 23:40 | XR ---
EXAM DATE: 10/09/2017 11:24 PM EDT AGE/SEX: 57 years / Male INDICATIONS: Fever. Altered mental status. CLINICAL DATA: This is the patient's initial encounter. Patient reports that signs and symptoms have been present for 1 day and indicates a pain score of 3/10. MEDICAL/SURGICAL HISTORY: . Hypertension. Diabetes mellitus type 2. Hepatitis C. Cocaine use. S moker. . Tonsillectomy. Inguinal hernia repair. Lt first and fifth toe amputation. COMPARISON: [facility] [place] 1[place] SING[place] AP, 10/02/2017. [facility] [place]ST 1V SINGLE AP, 09/25/2017. . FINDINGS: Portable AP view of the chest demonstrates a normal-sized cardiac silhouette. No effusion, consolidat ion, or pneumothorax is identified. The bones and soft tissues demonstrate no acute finding. What hunter ears to be a right upper extremity PICC distal tip overlies the right axilla. CONCLUSION: 1. No acute cardiopulmonary abnormality is identified. 2. Right upper extremity PICC distal tip overlies the right axilla, likely in the right axillary vei n. Electronically signed by: Jerman Sanders MD 10/09/2017 11:39 PM EDT
[2017-10-09 23:49] LABS: Alanine Aminotransferase 21 U/L (12-78); Albumin 2.8 g/dL (3.4-5.0); Anion Gap 6 meq/L (5-15); Aspartate Aminotransferase 52 U/L (15-37); Blood Urea Nitrogen 18 mg/dL (7-18); Calcium 7.8 mg/dL (8.5-10.1); Carbon Dioxide 26.3 meq/L (21.0-32.0); Chloride 103 meq/L (98-107); Glomerular Filtration Rate 48 mL/min (>89); Glucose,Random 132 mg/dL (74-106); Potassium 3.5 meq/L (3.5-5.1); Sodium 135 meq/L (136-145)
[2017-10-09 23:52] LABS: Alkaline Phosphatase 79 U/L (45-117); Total Protein 6.9 g/dL (6.4-8.2)
[2017-10-10] MEDS ORDERED: Sod Chloride 0.9% Inj 1,000 ML IV.SIG ONE (03:52)
[2017-10-10] MEDS ORDERED: Vancomycin Inj 1 GM/200 ML PIGGYBACK IV.SIG SCH (04:00)
[2017-10-10] MEDS ORDERED: Vancomycin Inj 1,000 MG in Sodium Chlor 0.9% Inj 250 ML IV.SIG ONE (05:00)
[2017-10-10] MEDS ORDERED: Acetaminophen 325 MG Tablet PO PRN (06:30)
[2017-10-10] MEDS ORDERED: Temazepam 15 MG Capsule PO PRN (06:30)
[2017-10-10] MEDS ORDERED: Bisacodyl 10 MG Supp RECTAL PRN (06:30)
--- NOTE | 2017-10-10 06:31 | ED ---
HPI General Chief complaint: Medical Clearance Stated complaint: Fever/altered mental/hip Time Seen by Provider: 10/09/17 23:07 History of Present Illness HPI narrative: Patient was seen and evaluated patient is a 57-year-old male presents the emergency department with fever. He is a diabetic patient with bilateral foot problems and has osteomyelitis of both feet. He is currently receiving Vanco through a PICC line daily at the [facility]. Patient is homeless and lives in a tent and states that he has missed 1 or 2 doses. He has no complaints of pain but is concerned that he is getting sick again because of the fever. Related Data Home Medications Medication Instructions Recorded Confirmed amlodipine 5 mg PO DAILY 08/28/17 10/10/17 lisinopril 10 mg PO DAILY 08/28/17 10/10/17 metformin 500 mg PO BIDPC 08/28/17 10/10/17 methadone 200 mg PO DAILY 08/28/17 10/10/17 vancomycin 1.25 gm IV DAILY 10/03/17 10/10/17 Previous Rx's Medication Instructions Recorded albuterol sulfate [ProAir HFA] 2 puff INHALATION Q4H PRN #1 10/01/17 inhaler gabapentin 300 mg PO Q8HR #90 tab 10/01/17 Allergies Allergy/AdvReac Type Severity Reaction Status Date / Time codeine AdvReac Severe NAUSEA Verified 10/09/17 21:54 Review of Systems ROS: all other systems reviewed are negative Constitutional Reports chills and Reports fever(s) Respiratory Denies dyspnea and Denies dyspnea on exertion Musculoskeletal Denies back pain Integumentary/Breasts Reports wounds (Bilateral feet) [facility] Medical History Medical History Depression (Chronic) Hyperlipidemia (Chronic) Amputated toe of left foot (Acute) Hepatitis C (Acute) Hip fracture (Acute) Hip fracture (Acute) Cirrhosis of liver (Acute) COPD (chronic obstructive pulmonary disease) (Chronic) CHF (congestive heart failure) (Acute) Hypertension (Chronic) Diabetes (Chronic) Osteomyelitis due to secondary diabetes (Acute) Chronic pain (Acute) Chronic, continuous use of opioids (Acute) History of complete ray amputation of fifth toe of left foot (Acute) History of complete ray amputation of second toe of left foot (Acute) Hx MRSA infection (Acute) Tobacco abuse (Acute) Family History Family History Father IA (myocardial infarction) Asthma Social History Social History Substance History: Unable to Obtain Second Hand Smoke Exposure: No Smoking Status: Cognitive impairment Tobacco Type: Cigarettes Packs Per Day: 1 Cigarettes Per Day: 20.0 Years Smoked: 48 Pack-Years: 48.00 How Often Do You Have a Drink Containing Alcohol: Unable to Obtain Immunization History Tetanus Immunization: Unable to Assess Hx Influenza Vaccine This Season: Unable to Assess Exam Narrative Exam Narrative: GENERAL: 57-year-old male in no distress. SKIN: Focused skin assessment warm/dry. HEAD: Atraumatic. Normocephalic. EYES: Pupils equal and round. No scleral icterus. No injection or drainage. ENT: No nasal bleeding or discharge. Mucous membranes pink and moist. NECK: Trachea midline. No JVD. CARDIOVASCULAR: Regular rate and rhythm. No murmur appreciated. RESPIRATORY: No accessory muscle use. Clear to auscultation. Breath sounds equal bilaterally. GASTROINTESTINAL: Abdomen soft, non-tender, nondistended. Hepatic and splenic margins not palpable. MUSCULOSKELETAL: He is missing several toes on both feet and has stitches in his right foot that appeared to be clean and not infected.. Course Initial Documented Vital Signs Temperature 102.8 F H 10/09/17 21:47 Pulse Rate 89 10/09/17 21:47 Respiratory Rate 20 10/09/17 21:47 Blood Pressure 111/56 L 10/09/17 21:47 Pulse Oximetry 96 10/09/17 21:47 Last Documented Vital Signs Temperature 97.9 F 10/11/17 00:00 Pulse Rate 62 10/11/17 00:00 Respiratory Rate 16 10/11/17 00:00 Blood Pressure 98/58 L 10/11/17 00:00 Pulse Oximetry 99 10/10/17 12:00 Medical Decision Making MDM Narrative Medical decision making narrative: Patient was seen and evaluated in the emergency department. He initially did not want to be admitted and we attempted to hydrate him to bring his blood pressure up. Fever was controlled with antipyretics he was given a dose of vancomycin. His blood pressure never really improved and he was eventually convinced to be admitted to the hospital. He is admitted to [facility] for further evaluation and treatment. Lab Data Result diagrams: 10/09/17 23:20 10/09/17 23:20 Lab Results 10/09/17 10/09/17 10/09/17 Range/Units 23:20 23:20 23:20 WBC 9.4 (4.0-11.0) th/mm3 RBC 2.99 L (4.50-5.90) mil/mm3 Hgb 9.0 L (13.0-17.0) gm/dL Hct 26.1 L (39.0-51.0) % MCV 87.4 (80.0-100.0) fL MCH 30.3 (27.0-34.0) pg MCHC 34.6 (32.0-36.0) % RDW 14.5 (11.6-17.2) % Plt Count 180 (150-450) th/mm3 MPV 8.1 (7.0-11.0) fL Neut % (Auto) 90.1 H (16.0-70.0) % Lymph % (Auto) 4.9 L (9.0-44.0) % Wake % (Auto) 4.7 (0.0-8.0) % Eos % (Auto) 0.1 (0.0-4.0) % Baso % (Auto) 0.2 (0.0-2.0) % Neut # (Auto) 8.5 H (1.8-7.7) th/mm3 Lymph # (Auto) 0.5 L (1.0-4.8) th/mm3 Wake # (Auto) 0.4 (0.0-0.9) th/mm3 Eos # (Auto) 0.0 (0.0-0.4) th/mm3 Baso # (Auto) 0.0 (0.0-0.2) th/mm3 WBC Differential . Differential Comment Auto diff final Sodium 135 L (136-145) meq/L Potassium 3.5 (3.5-5.1) meq/L Chloride 103 (98-107) meq/L Carbon Dioxide 26.3 (21.0-32.0) meq/L Anion Gap 6 (5-15) meq/L BUN 18 (7-18) mg/dL Creatinine 1.51 H (0.60-1.30) mg/dL Estimated GFR 48 L (>89) mL/min POC Glucose (68-110) mg/dl Random Glucose 132 H (74-106) mg/dL Lactic Acid 1.1 (0.4-2.0) mmol/L Calcium 7.8 L (8.5-10.1) mg/dL Total Bilirubin 0.3 (0.2-1.0) mg/dL AST 52 H (15-37) U/L ALT 21 (12-78) U/L Alkaline Phosphatase 79 (45-117) U/L Total Protein 6.9 (6.4-8.2) g/dL Albumin 2.8 L (3.4-5.0) g/dL Urine Color (Yellw/Straw) Urine Clarity (Clear) Urine pH (5.0-8.5) Ur Specific [place] (1.002-1.035) Urine Protein (Neg-Trace) mg/dL Urine Glucose (UA) (Negative) mg/dL Urine Ketones (Negative) mg/dL Urine Occult Blood (Negative) Urine Nitrate (Negative) Urine Bilirubin (Negative) Urine Urobilinogen (Less than 2) mg/dL Ur Leukocyte Esterase (Negative) Urine RBC (0-3) /hpf Urine WBC (0-5) /hpf Ur Squamous Epith Cells (0-5) /hpf Urine Bacteria (None) /hpf Urine Mucus (Occasional) /lpf Random Vancomycin Comment Urine Opiates Screen (Neg) Ur Barbiturates Screen (Neg) Ur Amphetamines Screen (Neg) U Benzodiazepines Scrn (Neg) Urine Cocaine Screen (Neg) U Cannabinoids Screen (Neg) 10/09/17 10/10/17 10/10/17 Range/Units 23:20 09:20 09:20 WBC (4.0-11.0) th/mm3 RBC (4.50-5.90) mil/mm3 Hgb (13.0-17.0) gm/dL Hct (39.0-51.0) % MCV (80.0-100.0) fL MCH (27.0-34.0) pg MCHC (32.0-36.0) % RDW (11.6-17.2) % Plt Count (150-450) th/mm3 MPV (7.0-11.0) fL Neut % (Auto) (16.0-70.0) % Lymph % (Auto) (9.0-44.0) % Wake % (Auto) (0.0-8.0) % Eos % (Auto) (0.0-4.0) % Baso % (Auto) (0.0-2.0) % Neut # (Auto) (1.8-7.7) th/mm3 Lymph # (Auto) (1.0-4.8) th/mm3 Wake # (Auto) (0.0-0.9) th/mm3 Eos # (Auto) (0.0-0.4) th/mm3 Baso # (Auto) (0.0-0.2) th/mm3 WBC Differential Differential Comment Sodium (136-145) meq/L Potassium (3.5-5.1) meq/L Chloride (98-107) meq/L Carbon Dioxide (21.0-32.0) meq/L Anion Gap (5-15) meq/L BUN (7-18) mg/dL Creatinine (0.60-1.30) mg/dL Estimated GFR (>89) mL/min POC Glucose (68-110) mg/dl Random Glucose (74-106) mg/dL Lactic Acid (0.4-2.0) mmol/L Calcium (8.5-10.1) mg/dL Total Bilirubin (0.2-1.0) mg/dL AST (15-37) U/L ALT (12-78) U/L Alkaline Phosphatase (45-117) U/L Total Protein (6.4-8.2) g/dL Albumin (3.4-5.0) g/dL Urine Color Yellow (Yellw/Straw) Urine Clarity Clear (Clear) Urine pH 6.0 (5.0-8.5) Ur Specific [place] 1.011 (1.002-1.035) Urine Protein Negative (Neg-Trace) mg/dL Urine Glucose (UA) Negative (Negative) mg/dL Urine Ketones Negative (Negative) mg/dL Urine Occult Blood Small H (Negative) Urine Nitrate Negative (Negative) Urine Bilirubin Negative (Negative) Urine Urobilinogen 2.0 H (Less than 2) mg/dL Ur Leukocyte Esterase Trace H (Negative) Urine RBC 1 (0-3) /hpf Urine WBC Less than 1 (0-5) /hpf Ur Squamous Epith Cells <1 (0-5) /hpf Urine Bacteria Rare H (None) /hpf Urine Mucus Few H (Occasional) /lpf Random Vancomycin 16.7 Comment Urine Opiates Screen Neg (Neg) Ur Barbiturates Screen Neg (Neg) Ur Amphetamines Screen Neg (Neg) U Benzodiazepines Scrn Neg (Neg) Urine Cocaine Screen Pos H (Neg) U Cannabinoids Screen Neg (Neg) 10/10/17 10/10/17 10/10/17 Range/Units 09:45 12:30 18:05 WBC (4.0-11.0) th/mm3 RBC (4.50-5.90) mil/mm3 Hgb (13.0-17.0) gm/dL Hct (39.0-51.0) % MCV (80.0-100.0) fL MCH (27.0-34.0) pg MCHC (32.0-36.0) % RDW (11.6-17.2) % Plt Count (150-450) th/mm3 MPV (7.0-11.0) fL Neut % (Auto) (16.0-70.0) % Lymph % (Auto) (9.0-44.0) % Wake % (Auto) (0.0-8.0) % Eos % (Auto) (0.0-4.0) % Baso % (Auto) (0.0-2.0) % Neut # (Auto) (1.8-7.7) th/mm3 Lymph # (Auto) (1.0-4.8) th/mm3 Wake # (Auto) (0.0-0.9) th/mm3 Eos # (Auto) (0.0-0.4) th/mm3 Baso # (Auto) (0.0-0.2) th/mm3 WBC Differential Differential Comment Sodium (136-145) meq/L Potassium (3.5-5.1) meq/L Chloride (98-107) meq/L Carbon Dioxide (21.0-32.0) meq/L Anion Gap (5-15) meq/L BUN (7-18) mg/dL Creatinine (0.60-1.30) mg/dL Estimated GFR (>89) mL/min POC Glucose 90 125 H 99 (68-110) mg/dl Random Glucose (74-106) mg/dL Lactic Acid (0.4-2.0) mmol/L Calcium (8.5-10.1) mg/dL Total Bilirubin (0.2-1.0) mg/dL AST (15-37) U/L ALT (12-78) U/L Alkaline Phosphatase (45-117) U/L Total Protein (6.4-8.2) g/dL Albumin (3.4-5.0) g/dL Urine Color (Yellw/Straw) Urine Clarity (Clear) Urine pH (5.0-8.5) Ur Specific [place] (1.002-1.035) Urine Protein (Neg-Trace) mg/dL Urine Glucose (UA) (Negative) mg/dL Urine Ketones (Negative) mg/dL Urine Occult Blood (Negative) Urine Nitrate (Negative) Urine Bilirubin (Negative) Urine Urobilinogen (Less than 2) mg/dL Ur Leukocyte Esterase (Negative) Urine RBC (0-3) /hpf Urine WBC (0-5) /hpf Ur Squamous Epith Cells (0-5) /hpf Urine Bacteria (None) /hpf Urine Mucus (Occasional) /lpf Random Vancomycin Comment Urine Opiates Screen (Neg) Ur Barbiturates Screen (Neg) Ur Amphetamines Screen (Neg) U Benzodiazepines Scrn (Neg) Urine Cocaine Screen (Neg) U Cannabinoids Screen (Neg) Imaging Data Radiologist's impression: Chest X-Ray 10/09/17 23:07 CONCLUSION: 1. No acute cardiopulmonary abnormality is identified. 2. Right upper extremity PICC distal tip overlies the right axilla, likely in the right axillary vein. Discharge Plan Discharge Disposition Patient Disposition: 30 Still Patient Discharge Condition Condition: Stable Discharge Details Diagnosis: Osteomyelitis, Non-compliance Physicians Team ED Provider: Isaias Mcelroy Primary Care Provider: UNKNOWN, Attending Provider: Gregory Peña Other Providers: Vida Will ; Danuta James Status ED Status: Left Department Discharge Information Discharge Date/Time: 10/10/17 08:27
[2017-10-10] MEDS ORDERED: Vancomycin Consult Pharmacy 1 EACH OTHER SCH (07:00)
--- NOTE | 2017-10-10 07:29 | P.HP ---
History of Present Illness Primary Care Physician: UNKNOWN Chief Complaint: confusion, fever History of Present Illness: Mr. Alva is a 57-year-old male who is homeless, has significant past medical history of anxiety, depression, hep C, cirrhosis, prior polysubstance abuse on methadone, COPD, diabetes, CHF. Patient has a history of left foot ulcer infection that subsequently led to osteomyelitis. He has undergone multiple surgeries, the most recent one August 29, 2017 where he had a left foot fifth ray and left foot second digit resection. He was discharged with PICC line with outpatient vancomycin. According to patient, he has missed approximately 4 treatments, did have his antibiotic yesterday. He presented to the emergency room confused and febrile. There is no emergency room report, this is obtained from the patient who is now more oriented and awake. During evaluation emergency room, he was noted with fever of 103. Patient states he is homeless and lives in a tent. Indicates that his son found him confused and hallucinating and brought him to the hospital. Denies any drainage from the wound, no redness. Still has sutures in place, indicates he has not been able to make an appointment with recovery operator Dr. David. Has chronic cough, COPD and continues to smoke. Occasional chest discomfort with coughing and shortness of breath, no sputum, no nausea, no vomiting, diarrhea. Patient states he has not been taking his blood pressure medications as he was told to stop them because of low blood pressure. Patient was evaluated in the emergency room, CBC remarkable for hemoglobin 9, hematocrit 26.1. BMP remarkable for creatinine 1.41. Patient was noted febrile, temperature up to 103.1, blood pressure was initially 91/52 and has trended down to 86/54, heart rate 50s-70s. Cultures were obtained, patient was started on vancomycin. Chest x-ray did not reveal any acute findings. Urinalysis with trace leukocyte esterase, WBC less than 1. Patient adamantly denies injecting any substances through his PICC line. Indicates that he is weaning himself off methadone and goes to the clinic regularly. Patient was fluid resuscitated, he received 2 L of fluid and is currently in normal saline at 100. Patient is now evaluated, he is awake alert and oriented. He has complaints of chronic hip pain and is requesting his methadone which was verified with methadone clinic. Patient is admitted for further evaluation and treatment. - Diagnosis (1) Fever (2) Osteomyelitis (3) Failure of outpatient treatment (4) Non compliance w medication regimen (5) DANILO (acute kidney injury) (6) History of substance abuse (7) Depression (8) Hyperlipidemia (9) COPD (chronic obstructive pulmonary disease) (10) Hypertension (11) Diabetes Review of Systems All other systems reviewed negative except as stated in HPI [facility] - History History Provided By: Patient - Medical History Medical History: Medical History (Last Reviewed 10/10/17 @ 15:41 by RUSS Diaz) Depression (Chronic) Hyperlipidemia (Chronic) Amputated toe of left foot (Acute) Hepatitis C (Acute) Hip fracture (Acute) Hip fracture (Acute) Cirrhosis of liver (Acute) COPD (chronic obstructive pulmonary disease) (Chronic) CHF (congestive heart failure) (Acute) Hypertension (Chronic) Diabetes (Chronic) Osteomyelitis due to secondary diabetes (Acute) Chronic pain Chronic, continuous use of opioids History of complete ray amputation of fifth toe of left foot History of complete ray amputation of second toe of left foot Hx MRSA infection Tobacco abuse - Surgical History Surgical History: Surgical History (Last Reviewed 10/10/17 @ 15:41 by RUSS Diaz) H/O hernia repair (Acute) Hx of tonsillectomy (Acute) H/O hemorrhoidectomy (Acute) H/O left inguinal hernia repair - Family History Family History: Family History (Last Updated 10/10/17 @ 15:42 by RUSS Diaz) Father CO (myocardial infarction) Asthma - Tobacco History Second Hand Smoke Exposure: No Smoking Status: Cognitive impairment Tobacco Type: Cigarettes (quit for a month, now smoking 1-2 per day, smoking x 50 years ) Packs Per Day: 1 Years Smoked: 48 - Alcohol History How Often Do You Have a Drink Containing Alcohol: Never (quit drinking 10 years ago, used to drink heavily) - Substance Use History Substance History: Past History (used to do IVDU, currently on Methadone) - Immunization History Tetanus Immunization: Unable to Assess Hx Influenza Vaccine This Season: Unable to Assess Medications and Allergies Active Medications: Active Medications Acetaminophen (Tylenol) 650 mg PO Q4H PRN PRN Reason: Temp > 100.4 Al Hydroxide/Mg Hydroxide (Milk Of Magnesia Liq) 30 ml PO Q12H PRN PRN Reason: Mild Constipation Bisacodyl (Dulcolax Supp) 10 mg RECTAL DAILY PRN PRN Reason: SEVERE CONSITIPATION Vancomycin/Sodium Chloride (Vancomycin Inj) 1 gm in 200 mls @ 200 mls/hr IV.[employer] [facility] Last Admin: 10/10/17 04:58 Dose: 200 mls/hr Sodium Chloride (Ns Inj) 1,000 mls @ 100 mls/hr IV.CONT .Q10H [facility] Pharmacy Profile Note (Vancomycin Consult Pharmacy) 0 mls @ 0 mls/hr OTHER UNSCH [facility] Lactulose (Lactulose Liq) 30 ml PO DAILY PRN PRN Reason: SEVERE CONSITIPATION Ondansetron HCl (Zofran Inj) 4 mg IV.PUSH Q6H PRN PRN Reason: NAUSEA OR VOMITING Senna/Docusate Sodium (Veena-Colace) 1 tab PO BID [facility] Sennosides (Senokot) 17.2 mg PO Q12H PRN PRN Reason: Moderate Constipation Temazepam (Restoril) 15 mg PO HS PRN PRN Reason: INSOMNIA Allergies Allergy/AdvReac Type Severity Reaction Status Date / Time codeine AdvReac Severe NAUSEA Verified 10/09/17 21:54 Home Medications Medication Instructions Recorded Confirmed Type amlodipine 5 mg PO DAILY 08/28/17 10/10/17 History lisinopril 10 mg PO DAILY 08/28/17 10/10/17 History metformin 500 mg PO BIDPC 08/28/17 10/10/17 History methadone 200 mg PO DAILY 08/28/17 10/10/17 History vancomycin 1.25 gm IV DAILY 10/03/17 10/10/17 History Exam Vital signs: Vital Signs 10/09/17 21:47 10/09/17 22:43 10/10/17 00:00 Temperature 102.8 F H 103.1 F H Pulse Rate 89 72 70 Respiratory Rate 20 16 14 Blood Pressure 111/56 L 91/52 L 91/52 L Pulse Oximetry 96 95 95 10/10/17 01:00 10/10/17 02:00 10/10/17 03:00 Temperature Pulse Rate 64 60 58 L Respiratory Rate 14 12 12 Blood Pressure 95/53 L 96/52 L 86/54 L Pulse Oximetry 95 95 94 L 10/10/17 04:00 10/10/17 05:00 10/10/17 06:13 Temperature 98.4 F Pulse Rate 50 L 46 L Respiratory Rate 13 13 Blood Pressure 83/53 L 89/51 L Pulse Oximetry 96 95 10/10/17 06:30 Temperature Pulse Rate Respiratory Rate Blood Pressure 94/60 L Pulse Oximetry Intake & Output 10/09/17 10/10/17 10/10/17 18:59 06:59 18:59 Weight 63.503 kg Narrative: GENERAL: 57-year-old disheveled male who appears older than stated age. SKIN: Warm and dry. HEAD: Atraumatic. Normocephalic. EYES: Pupils equal and round. No scleral icterus. No injection or drainage. ENT: No nasal bleeding or discharge. Mucous membranes pink and moist. NECK: Trachea midline. No JVD. CARDIOVASCULAR: Regular rate and rhythm. RESPIRATORY: Expiratory wheezing GASTROINTESTINAL: Abdomen soft, non-tender, nondistended. Hepatic and splenic margins not palpable. MUSCULOSKELETAL: Left foot is noted with sutures to left foot s/p resection first, second and fifth ray, no drainage, no erythema. Pedal pulses 2+. No other joint abnormality. NEUROLOGICAL: Awake and alert oriented 3. No obvious cranial nerve deficits. Motor grossly within normal limits. Five out of 5 muscle strength in the arms and legs. Normal speech. PSYCHIATRIC: Appropriate mood and affect; insight and judgment normal. GENERAL : Well-nourished, well-developed patient in no apparent distress. LINES: Right upper extremity PICC in place, no swelling, no erythema noted around insertion site Results - Labs CBC & Chem 7: 10/09/17 23:20 10/09/17 23:20 Labs: Laboratory Results - last 24 hr 10/09/17 10/09/17 10/09/17 23:20 23:20 23:20 WBC 9.4 RBC 2.99 L Hgb 9.0 L Hct 26.1 L MCV 87.4 MCH 30.3 MCHC 34.6 RDW 14.5 Plt Count 180 MPV 8.1 Neut % (Auto) 90.1 H Lymph % (Auto) 4.9 L Dawson % (Auto) 4.7 Eos % (Auto) 0.1 Baso % (Auto) 0.2 Neut # (Auto) 8.5 H Lymph # (Auto) 0.5 L Dawson # (Auto) 0.4 Eos # (Auto) 0.0 Baso # (Auto) 0.0 WBC Differential . Differential Comment Auto diff final Sodium 135 L Potassium 3.5 Chloride 103 Carbon Dioxide 26.3 Anion Gap 6 BUN 18 Creatinine 1.51 H Estimated GFR 48 L Random Glucose 132 H Lactic Acid 1.1 Calcium 7.8 L Total Bilirubin 0.3 AST 52 H ALT 21 Alkaline Phosphatase 79 Total Protein 6.9 Albumin 2.8 L Random Vancomycin 10/09/17 23:20 WBC RBC Hgb Hct MCV MCH MCHC RDW Plt Count MPV Neut % (Auto) Lymph % (Auto) Dawson % (Auto) Eos % (Auto) Baso % (Auto) Neut # (Auto) Lymph # (Auto) Dawson # (Auto) Eos # (Auto) Baso # (Auto) WBC Differential Differential Comment Sodium Potassium Chloride Carbon Dioxide Anion Gap BUN Creatinine Estimated GFR Random Glucose Lactic Acid Calcium Total Bilirubin AST ALT Alkaline Phosphatase Total Protein Albumin Random Vancomycin 16.7 - Imaging Impressions Chest X-Ray 10/09/17 23:07 CONCLUSION: 1. No acute cardiopulmonary abnormality is identified. 2. Right upper extremity PICC distal tip overlies the right axilla, likely in the right axillary vein. Caprini VTE Risk Assessment Caprini VTE Risk Assessment: Moderate/High Risk (score >= 2) Caprini Risk Assessment Model: Point Value = 1 Point Value = 2 Point Value = 3 Point Value = 5 Age 41-60 Minor surgery BMI > 25 kg/m2 Swollen legs Varicose veins or History of unexplained or recurrent spontaneous Oral contraceptives or hormone replacement Sepsis (< 1 month) Serious lung disease, including pneumonia (< 1 month) Abnormal pulmonary function Acute myocardial infarction Congestive heart failure (< 1 month) History of inflammatory bowel disease Medical patient at bed rest Age 61-74 Arthroscopic surgery Major open surgery (> 45 min) Laparoscopic surgery (> 45 min) Malignancy Confined to bed (> 72 hours) Immobilizing plaster cast Central venous access Age >= 75 History of VTE Family history of VTE Factor V Leiden Prothrombin [id number] Lupus anticoagulant Anticardiolipin antibodies Elevated serum homocysteine Heparin-induced thrombocytopenia Other congenital or acquired thrombophilia Stroke (< 1 month) Elective arthroplasty Hip, pelvis, or leg fracture Acute spinal cord injury (< 1 month) Prophylaxis Regimen: Total Risk Factor Score Risk Level Prophylaxis Regimen 0-1 Low Early ambulation 2 Moderate Order ONE of the following: *Sequential Compression Device (SCD) *Heparin 5000 units SQ BID 3-4 Higher Order ONE of the following medications: *Heparin 5000 units SQ TID *Enoxaparin/Lovenox 40 mg SQ daily (WT < 150 kg, CrCl > 30 mL/min) *Enoxaparin/Lovenox 30 mg SQ daily (WT < 150 kg, CrCl > 10-29 mL/min) *Enoxaparin/Lovenox 30 mg SQ BID (WT < 150 kg, CrCl > 30 mL/min) AND/OR *Sequential Compression Device (SCD) 5 or more Highest Order ONE of the following medications: *Heparin 5000 units SQ TID (Preferred with Epidurals) *Enoxaparin/Lovenox 40 mg SQ daily (WT < 150 kg, CrCl > 30 mL/min) *Enoxaparin/Lovenox 30 mg SQ daily (WT < 150 kg, CrCl > 10-29 mL/min) *Enoxaparin/Lovenox 30 mg SQ BID (WT < 150 kg, CrCl > 30 mL/min) AND *Sequential Compression Device (SCD) Assessment and Plan - Assessment (1) Fever Code(s): R50.9 - Fever, unspecified Status: Acute (2) Osteomyelitis Code(s): M86.9 - Osteomyelitis, unspecified Status: Acute (3) Failure of outpatient treatment Code(s): Z78.9 - Other specified health status Status: Acute (4) Non compliance w medication regimen Code(s): Z91.14 - Patient's other noncompliance with medication regimen Status : Acute (5) DANILO (acute kidney injury) Code(s): N17.9 - Acute kidney failure, unspecified Status: Acute (6) History of substance abuse Code(s): Z87.898 - Personal history of other specified conditions Status: Acute (7) Depression Code(s): F32.9 - Major depressive disorder, single episode, unspecified Status : Chronic (8) Hyperlipidemia Code(s): E78.5 - Hyperlipidemia, unspecified Status: Chronic (9) COPD (chronic obstructive pulmonary disease) Code(s): J44.9 - Chronic obstructive pulmonary disease, unspecified Status: Chronic (10) Hypertension Code(s): I10 - Essential (primary) hypertension Status: Chronic (11) Diabetes Code(s): E11.9 - Type 2 diabetes mellitus without complications Status: Chronic - Plan 57-year-old male with history of left foot chronic infection positive for osteomyelitis and MRSA, status post resection of first ray, second ray and fifth ray. Noncompliant with medication treatment. Has a PICC line in place and is on vancomycin. Has missed four doses. Presented to the emergency room with hallucinations and fever. Lactic acid 1, no WBC elevation. Patient noted hypotensive, blood pressure 80s-90s. S/P left foot toe resections, history of recent osteomyelitis osteomyelitis and MRSA. Fever 103 with hypotension. Failure of outpatient therapy Non compliance with medication treatment -Continue Vancomycin, pharmacy consult to manage. -Consult ID for assistance -Follow cultures closely -Continue with NS at 100/hr -Consult podiatry, sutures can possibly be removed, we will defer to Dr. Beth -Discussed need for compliance. Hypotension, BP already improving. -hold BP meds -continue IVF DANILO likely secondary to infection, dehydration -continue hydration -Avoid nephrotoxic agents -repeat BMP in am -Hold CHUNG Chronic pain Chronic opioid use History of polysubstance abuse -Resume methadone 200 mg p.o. daily, verified with methadone clinic Type 2 diabetes, on metformin -We will hold metformin due to acute kidney injury Accu-Cheks before meals and at bedtime with insulin therapy -Diabetic diet COPD Tobacco abuse -Add DuoNeb's every 4 as needed -Tobacco abuse counseling Home medications reviewed, initiated as indicated Heparin for DVT prophylaxis Plan of care discussed with patient and RN. Further management the patient will be dependent on hospital course (1) Fever Qualifiers: Fever type: unspecified Qualified Code(s): R50.9 - Fever, unspecified (2) Osteomyelitis Qualifiers: Osteomyelitis type: other chronic Osteomyelitis location: foot Laterality: unspecified laterality Qualified Code(s): M86.679 - Other chronic osteomyelitis , unspecified ankle and foot (7) Depression Qualifiers: Depression Type: unspecified Qualified Code(s): F32.9 - Major depressive disorder, single episode, unspecified (8) Hyperlipidemia Qualifiers: Hyperlipidemia type: unspecified Qualified Code(s): E78.5 - Hyperlipidemia, unspecified (9) COPD (chronic obstructive pulmonary disease) Qualifiers: Emphysema type: unspecified (10) Hypertension Qualifiers: Hypertension type: essential hypertension Qualified Code(s): I10 - Essential (primary) hypertension (11) Diabetes Qualifiers: Diabetes mellitus type: type 2 Diabetes mellitus long term care administrator insulin use: without jail use Diabetes mellitus complication status: with other specified complication Qualified Code(s): E11.69 - Type 2 diabetes mellitus with other specified complication
[2017-10-10] MEDS: Heparin - SQ 10,000 UNITS/ML Vial SQ SCH ×2 (10:05→20:17)
[2017-10-10] MEDS: Methadone 10 MG Tablet PO SCH (10:05)
[2017-10-10] MEDS: Sod Chloride 0.9% Inj 1,000 ML IV.CONT SCH ×3 (10:05→20:17)
[2017-10-10] MEDS: Senna/Docusate Sodium 8.6/50 MG Tablet PO SCH ×2 (10:06→20:18)
[2017-10-10 10:55] LABS: Bacteria,Urine Rare /hpf; Bilirubin,Urine Negative (Negative); Clarity,Urine Clear (Clear); Color,Urine Yellow (Yellw/Straw); Glucose,Urine (UA) Negative (Negative); Leukocyte Esterase,Urine Trace (Negative); Mucus,Urine Few /lpf (Occasional); Nitrite,Urine Negative (Negative); Specific Gravity,Urine 1.011 (1.002-1.035); Squamous Epithelial Cell,Urine <1 /hpf (0-5)
[2017-10-10] MEDS ORDERED: Heparin Central Flush 100 UNIT/ML 5 ML Vial IV.FLUSH PRN (11:02)
[2017-10-10] MEDS ORDERED: Dextrose 50% in Water 50 ML Vial IV.PUSH PRN (11:07)
[2017-10-10] MEDS ORDERED: Potassium Chloride 25 MEQ Effervescent Tablet PO ONE (11:30)
[2017-10-10] MEDS: Insulin NovoLIN Regular Correctional Sugar Inj SQ SCH ×3 (13:22→20:41)
[2017-10-10] MEDS: Gabapentin 300 MG Capsule PO SCH ×3 (13:34→21:50)
--- NOTE | 2017-10-10 15:47 | P.CONID ---
History of Present Illness Service: ID Consult date: 10/10/17 Requesting Physician: Shireen Harris Reason for Consult: fever Primary Care Provider: UNKNOWN Family Provider: No Primary Care Physician Chief Complaint: confusion, fever History of Present Illness: 57 yo diabetic male with L foot DFI, osteo sp amputations left foot fifth ray and left foot second digit resection August 29, 2017 Pt has a history of anxiety, depression, hep C, cirrhosis, prior polysubstance abuse on methadone, COPD, diabetes, CHF. He was discharged with PICC line with outpatient vancomycin. According to patient, he has missed approximately 4 treatments, He presented to the emergency room with fever of 103 and confusion. He was hypotensive on presentation Chest x-ray did not reveal any acute findings. Urinalysis negative. Patient denies IV drug use via his PICC line. Vanco was started and his fever resolved Review of Systems All other systems reviewed negative except as stated in HPI PMFSH - History History Provided By: Patient - Medical History Medical History: Medical History (Last Reviewed 11/09/17 @ 08:36 by Jaylan Nelson) Depression (Chronic) Hyperlipidemia (Chronic) Hepatitis C (Chronic) Cirrhosis of liver (Chronic) COPD (chronic obstructive pulmonary disease) (Chronic) CHF (congestive heart failure) (Chronic) Hypertension (Chronic) Diabetes (Chronic) Osteomyelitis due to secondary diabetes (Chronic) History of amputation of toe Chronic pain Chronic, continuous use of opioids Hx MRSA infection Tobacco abuse Amputated toe of left foot (Resolved) History of complete ray amputation of fifth toe of left foot History of complete ray amputation of second toe of left foot Hip fracture (Inactive) Hip fracture (Inactive) - Surgical History Surgical History: Surgical History (Last Reviewed 11/09/17 @ 08:36 by Jaylan Nelson) H/O hernia repair (Resolved) H/O hemorrhoidectomy (Resolved) H/O left inguinal hernia repair Hx of tonsillectomy (Resolved) - Family History Family History: Family History (Last Reviewed 11/03/17 @ 18:58 by Vida Will MD) Father [place] (myocardial infarction) Asthma - Tobacco History Second Hand Smoke Exposure: No Tobacco Use In Past 30 Days: Yes Smoking Status: Cognitive impairment Tobacco Type: Cigarettes Packs Per Day: 1 Years Smoked: 48 - Alcohol History How Often Do You Have a Drink Containing Alcohol: Unable to Obtain - Substance Use History Substance History: Unable to Obtain - Immunization History Tetanus Immunization: Unable to Assess Hx Influenza Vaccine This Season: Unable to Assess Medications and Allergies Active Medications: Active Medications Acetaminophen (Tylenol) 650 mg PO Q4H PRN PRN Reason: Temp > 100.4 Al Hydroxide/Mg Hydroxide (Milk Of Magnesia Liq) 30 ml PO Q12H PRN PRN Reason: Mild Constipation Albuterol (Ventolin Hfa Inh) 2 puff INH Q4H PRN PRN Reason: Shortness Of Breath Albuterol (Duoneb Neb (Prn)) 1 ampul NEB Q4HR NEB PRN PRN Reason: WHEEZING Bisacodyl (Dulcolax Supp) 10 mg RECTAL DAILY PRN PRN Reason: SEVERE CONSITIPATION Dextrose (D50w Vial) 50 ml IV.PUSH UNSCH PRN PRN Reason: PER HYPOGLYCEMIA PROTOCOL Gabapentin (Neurontin) 300 mg PO Q8HR [facility] Last Admin: 10/10/17 13:34 Dose: 300 mg Glucagon (Glucagon Inj) 1 mg OTHER UNSCH PRN PRN Reason: for Hypoglycemia Protocol Heparin Sodium (Porcine) (Heparin Inj) 5,000 units SQ Q12HR [facility] Last Admin: 10/10/17 10:05 Dose: 5,000 units Heparin Sodium (Porcine) (Heparin Central Flush) 0 unit IV.FLUSH DAILY [facility] Heparin Sodium (Porcine) (Heparin Central Flush) 0 unit IV.FLUSH UNSCH PRN PRN Reason: Flush PICC Line Vancomycin/Sodium Chloride (Vancomycin Inj) 1 gm in 200 mls @ 200 mls/hr IV.SIG MOLD MAKING SUPERVISOR [facility] Last Infusion: 10/10/17 10:00 Dose: Infused Sodium Chloride (Ns Inj) 1,000 mls @ 100 mls/hr IV.CONT .Q10H [facility] Last Admin: 10/10/17 10:05 Dose: 100 mls/hr Pharmacy Profile Note (Vancomycin Consult Pharmacy) 0 mls @ 0 mls/hr OTHER UNSCH [facility] Insulin Human Regular (Novolin R Correctional Sugar Inj) 0 units SQ ACHS [facility]; Protocol Last Admin: 10/10/17 13:22 Dose: Not Given Lactulose (Lactulose Liq) 30 ml PO DAILY PRN PRN Reason: SEVERE CONSITIPATION Methadone HCl (Dolophine) 200 mg PO DAILY [facility] Last Admin: 10/10/17 10:05 Dose: 200 mg Ondansetron HCl (Zofran Inj) 4 mg IV.PUSH Q6H PRN PRN Reason: NAUSEA OR VOMITING Senna/Docusate Sodium (Veena-Colace) 1 tab PO BID [facility] Last Admin: 10/10/17 10:06 Dose: Not Given Sennosides (Senokot) 17.2 mg PO Q12H PRN PRN Reason: Moderate Constipation Sodium Chloride (Ns Flush) 0 ml IV.FLUSH DAILY [facility] Sodium Chloride (Ns Flush) 0 ml IV.FLUSH UNSCH PRN PRN Reason: Flush After Blood Draws Sodium Chloride (Ns Flush) 0 ml IV.FLUSH UNSCH PRN PRN Reason: FLUSH AFTER USING IV ACCESS Temazepam (Restoril) 15 mg PO HS PRN PRN Reason: INSOMNIA Allergies Allergy/AdvReac Type Severity Reaction Status Date / Time codeine AdvReac Severe NAUSEA Verified 11/02/17 21:19 Home Medications Medication Instructions Recorded Confirmed Type amlodipine 5 mg PO DAILY 08/28/17 11/05/17 History methadone 200 mg PO DAILY 08/28/17 11/05/17 History lisinopril 10 mg PO DAILY 11/05/17 11/05/17 History Exam Vital signs: Vital Signs 10/09/17 21:47 10/09/17 22:43 10/10/17 00:00 Temperature 102.8 F H 103.1 F H Pulse Rate 89 72 70 Respiratory Rate 20 16 14 Blood Pressure 111/56 L 91/52 L 91/52 L Pulse Oximetry 96 95 95 10/10/17 01:00 10/10/17 02:00 10/10/17 03:00 Temperature Pulse Rate 64 60 58 L Respiratory Rate 14 12 12 Blood Pressure 95/53 L 96/52 L 86/54 L Pulse Oximetry 95 95 94 L 10/10/17 04:00 10/10/17 05:00 10/10/17 06:13 Temperature 98.4 F Pulse Rate 50 L 46 L Respiratory Rate 13 13 Blood Pressure 83/53 L 89/51 L Pulse Oximetry 96 95 10/10/17 06:30 10/10/17 08:00 10/10/17 12:00 Temperature 97.8 F 97.6 F Pulse Rate 61 46 L Respiratory Rate 16 16 Blood Pressure 94/60 L 112/62 96/59 L Pulse Oximetry 97 99 Intake & Output 08/11/18 08/12/18 08/12/18 18:59 06:59 18:59 Intake Total 2250 / 2250 Balance 2250 / 2250 Weight 63.503 kg Intake: IV 2250 / 2250 NS Inj 1,000 ML @ Wide Open IV. 1000 / 1000 SIG BOLUS ONE Rx#:[id number] Vancomycin Inj 1 gm In 200 ml @ 250 / 250 200 mls/hr IV.SIG MOLD MAKING SUPERVISOR [facility] Rx#:[id number] Other: Date of Last Bowel Movement 10/10/17 - Constitutional no acute distress, average body habitus - Routine HEENT Exam Head: Present: normocephalic, atraumatic Eye: Present: EOMI, PERRL ENT: Present: mucous membranes moist, oropharynx clear Comments: poor dentition - Routine Neck Exam Present: supple, full ROM - Routine Respiratory Exam Present: decreased breath sounds, CTA bilaterally - Routine Cardiovascular Exam Present: RRR, S1, S2 Comments: no murmurs, rubs gallops well perfused perifery - Routine Abdominal Exam Present: soft, normoactive bowel sounds Comments: not tender not distended no hepatospleenomegaly or masses - Routine Extremities Exam Comments: no cyanosis, clubbing or edema L foot with well approximated incisions No drainage noted minimal erythemas over lateral foot incision stitches in place foot is well perfused - Routine Skin Exam Present: intact, dry, warm - Routine Neurological Exam Present: alert, oriented X3, CN II-XII intact, moving all extremities, vision grossly intact, hearing grossly intact, normal speech - Routine Psychiatric Exam Present: normal affect, normal thought process, cooperative Results - Labs CBC & Chem 7: 10/18/17 08:44 10/20/17 06:59 Labs: Laboratory Results - last 24 hr 10/09/17 10/09/17 10/09/17 23:20 23:20 23:20 WBC 9.4 RBC 2.99 L Hgb 9.0 L Hct 26.1 L MCV 87.4 MCH 30.3 MCHC 34.6 RDW 14.5 Plt Count 180 MPV 8.1 Neut % (Auto) 90.1 H Lymph % (Auto) 4.9 L Jenkins % (Auto) 4.7 Eos % (Auto) 0.1 Baso % (Auto) 0.2 Neut # (Auto) 8.5 H Lymph # (Auto) 0.5 L Jenkins # (Auto) 0.4 Eos # (Auto) 0.0 Baso # (Auto) 0.0 WBC Differential . Differential Comment Auto diff final Sodium 135 L Potassium 3.5 Chloride 103 Carbon Dioxide 26.3 Anion Gap 6 BUN 18 Creatinine 1.51 H Estimated GFR 48 L POC Glucose Random Glucose 132 H Lactic Acid 1.1 Calcium 7.8 L Total Bilirubin 0.3 AST 52 H ALT 21 Alkaline Phosphatase 79 Total Protein 6.9 Albumin 2.8 L Urine Color Urine Clarity Urine pH Ur Specific [place] Urine Protein Urine Glucose (UA) Urine Ketones Urine Occult Blood Urine Nitrate Urine Bilirubin Urine Urobilinogen Ur Leukocyte Esterase Urine RBC Urine WBC Ur Squamous Epith Cells Urine Bacteria Urine Mucus Random Vancomycin 10/09/17 10/10/17 10/10/17 23:20 09:20 09:45 WBC RBC Hgb Hct MCV MCH MCHC RDW Plt Count MPV Neut % (Auto) Lymph % (Auto) Jenkins % (Auto) Eos % (Auto) Baso % (Auto) Neut # (Auto) Lymph # (Auto) Jenkins # (Auto) Eos # (Auto) Baso # (Auto) WBC Differential Differential Comment Sodium Potassium Chloride Carbon Dioxide Anion Gap BUN Creatinine Estimated GFR POC Glucose 90 Random Glucose Lactic Acid Calcium Total Bilirubin AST ALT Alkaline Phosphatase Total Protein Albumin Urine Color Yellow Urine Clarity Clear Urine pH 6.0 Ur Specific [place] 1.011 Urine Protein Negative Urine Glucose (UA) Negative Urine Ketones Negative Urine Occult Blood Small H Urine Nitrate Negative Urine Bilirubin Negative Urine Urobilinogen 2.0 H Ur Leukocyte Esterase Trace H Urine RBC 1 Urine WBC Less than 1 Ur Squamous Epith Cells <1 Urine Bacteria Rare H Urine Mucus Few H Random Vancomycin 16.7 10/10/17 12:30 WBC RBC Hgb Hct MCV MCH MCHC RDW Plt Count MPV Neut % (Auto) Lymph % (Auto) Jenkins % (Auto) Eos % (Auto) Baso % (Auto) Neut # (Auto) Lymph # (Auto) Jenkins # (Auto) Eos # (Auto) Baso # (Auto) WBC Differential Differential Comment Sodium Potassium Chloride Carbon Dioxide Anion Gap BUN Creatinine Estimated GFR POC Glucose 125 H Random Glucose Lactic Acid Calcium Total Bilirubin AST ALT Alkaline Phosphatase Total Protein Albumin Urine Color Urine Clarity Urine pH Ur Specific [place] Urine Protein Urine Glucose (UA) Urine Ketones Urine Occult Blood Urine Nitrate Urine Bilirubin Urine Urobilinogen Ur Leukocyte Esterase Urine RBC Urine WBC Ur Squamous Epith Cells Urine Bacteria Urine Mucus Random Vancomycin - Imaging Impressions Chest X-Ray 10/09/17 23:07 CONCLUSION: 1. No acute cardiopulmonary abnormality is identified. 2. Right upper extremity PICC distal tip overlies the right axilla, likely in the right axillary vein. Assessment and Plan - Plan DFI, osteo L foot sp 5 th ray and 2nd toe amputations Fever, ? line sepsis - vanco started, fever resolved cont vancomycin fu blood clx further rec's to follow
[2017-10-10 16:58] LABS: Amphetamine Screen,Urine Neg (Neg); Barbiturate Screen,Urine Neg (Neg); Cannabinoid Screen,Urine Neg (Neg); Cocaine Screen,Urine Pos (Neg)
[2017-10-10 17:11] LABS: Opiate Screen,Urine Neg (Neg)
[2017-10-11] MEDS: Sod Chloride 0.9% Inj 1,000 ML IV.CONT SCH ×3 (03:44→23:21)
[2017-10-11 05:44] LABS: Hematocrit 26.5 % (39.0-51.0); Hemoglobin 8.7 gm/dL (13.0-17.0); Mean Corpuscular HGB Conc 32.9 % (32.0-36.0); Mean Corpuscular Hemoglobin 29.9 pg (27.0-34.0); Mean Corpuscular Volume 90.8 fL (80.0-100.0); Mean Platelet Volume 8.8 fL (7.0-11.0); Platelet Count 154 th/mm3 (150-450); Red Blood Count 2.92 mil/mm3 (4.50-5.90); Red Cell Distribution Width 15.2 % (11.6-17.2); White Blood Count 5.8 th/mm3 (4.0-11.0)
[2017-10-11 06:14] LABS: Calcium 8.2 mg/dL (8.5-10.1); Carbon Dioxide 26.3 meq/L (21.0-32.0); Potassium 4.6 meq/L (3.5-5.1)
[2017-10-11] MEDS: Gabapentin 300 MG Capsule PO SCH ×3 (06:15→23:16)
[2017-10-11 07:37] LABS: Eosinophils 4 % (0-4); Lymphocytes 28 % (9-44); Monocytes 9 % (0-8); Platelet Estimate Normal (Normal); Platelet Morphology Normal (Normal)
[2017-10-11] MEDS: Insulin NovoLIN Regular Correctional Sugar Inj SQ SCH ×4 (08:07→23:13)
[2017-10-11] MEDS: Heparin Central Flush 100 UNIT/ML 5 ML Vial IV.FLUSH SCH (08:53)
[2017-10-11] MEDS: Heparin - SQ 10,000 UNITS/ML Vial SQ SCH ×2 (08:55→23:12)
[2017-10-11] MEDS: Senna/Docusate Sodium 8.6/50 MG Tablet PO SCH ×2 (08:56→23:15)
[2017-10-11] MEDS: Methadone 10 MG Tablet PO SCH (08:56)
--- NOTE | 2017-10-11 11:15 | P.PNWCN ---
Wound Care Nurse Consult Description: Consult for wound management of heels per Dr Ayala Communicated with: Brittaney MILLER Patient Recommendation: Follow podiatry orders for sutures on left foot post surgical incision. Additional information: Patient seen in F pod this morning @0928 for bilateral heel wound evaluation. Bilateral heels are unremarkable. There are no wounds noted to either heels.
[2017-10-11] MEDS: Vancomycin Inj 1,000 MG in Sodium Chlor 0.9% Inj 250 ML IV.SIG SCH (13:07)
--- NOTE | 2017-10-11 13:29 | P.PNID ---
Subjective Remarks: pt is growing Acinetobacter in 1/4 bottle dw microlab: no resistance markers were indicated previously pt grew ramirez S Acinetobacter in the L foot abscess feels OK no fever Antibiotics: vancomycin Allergies/Adverse Reactions: Allergies codeine Adverse Reaction (Severe, Verified 10/09/17 21:54) NAUSEA Objective Vital Signs 10/10/17 20:00 10/11/17 00:00 10/11/17 04:00 Temperature 98.1 F 97.9 F Pulse Rate 68 62 58 L Respiratory Rate 16 16 18 Blood Pressure 110/64 98/58 L 100/58 L Pulse Oximetry 10/11/17 04:35 10/11/17 07:34 10/11/17 11:12 Temperature 97.6 F 97.6 F 97.6 F Pulse Rate 42 L 50 L Respiratory Rate 15 12 Blood Pressure 102/63 129/70 Pulse Oximetry 98 98 Intake & Output 10/10/17 10/11/17 10/11/17 18:59 06:59 18:59 Intake Total 2250 / 2250 1999 667 / 667 Balance 2250 / 2250 1999 667 / 667 Intake: IV 2250 / 2250 1999 667 / 667 NS Inj 1,000 ML @ 100 mls/hr IV 1999 667 / 667 .CONT .Q10H [facility] Rx#:[id number] NS Inj 1,000 ML @ Wide Open IV. 1000 / 1000 SIG BOLUS ONE Rx#:[id number] Vancomycin Inj 1 gm In 200 ml @ 250 / 250 200 mls/hr IV.SIG CHIEF WELLNESS OFFICER [facility] Rx#:[id number] Other: # Voids 2 Date of Last Bowel Movement 10/10/17 10/10/17 10/10/17 10/09/17 23:15 Blood - Peripheral Aerobic Blood Culture - Preliminary Acinetobacter species 10/09/17 23:15 Blood - Peripheral Anaerobic Blood Culture - Preliminary No growth in 2 days 10/09/17 23:15 Blood - Peripheral Aerobic Blood Culture - Preliminary No growth in 2 days 10/09/17 23:15 Blood - Peripheral Anaerobic Blood Culture - Preliminary No growth in 2 days Lab - Hematology Results 10/09/17 10/11/17 23:20 04:22 WBC 9.4 5.8 RBC 2.99 L 2.92 L Hgb 9.0 L 8.7 L Hct 26.1 L 26.5 L MCV 87.4 90.8 MCH 30.3 29.9 MCHC 34.6 32.9 RDW 14.5 15.2 Plt Count 180 154 MPV 8.1 8.8 Prelim Diff (Auto) Manual diff required Neut % (Auto) 90.1 H Lymph % (Auto) 4.9 L [place] % (Auto) 4.7 Eos % (Auto) 0.1 Baso % (Auto) 0.2 Neut # (Auto) 8.5 H Lymph # (Auto) 0.5 L [place] # (Auto) 0.4 Eos # (Auto) 0.0 Baso # (Auto) 0.0 WBC Differential . Manual diff final Seg Neuts % (Manual) 48 Band Neuts % (Manual) 11 H Lymphocytes % (Manual) 28 Monocytes % (Manual) 9 H Eosinophils % (Manual) 4 Abs Neuts (Manual) 3.4 Differential Comment Auto diff final . Platelet Estimate Normal Platelet Morphology Normal Lab - Chemistry Results 10/09/17 10/09/17 10/10/17 23:20 23:20 09:45 Sodium 135 L Potassium 3.5 Chloride 103 Carbon Dioxide 26.3 Anion Gap 6 BUN 18 Creatinine 1.51 H Estimated GFR 48 L POC Glucose 90 Random Glucose 132 H Lactic Acid 1.1 Calcium 7.8 L Total Bilirubin 0.3 AST 52 H ALT 21 Alkaline Phosphatase 79 Total Protein 6.9 Albumin 2.8 L 10/10/17 10/10/17 10/11/17 12:30 18:05 04:22 Sodium 142 Potassium 4.6 D Chloride 111 H D Carbon Dioxide 26.3 Anion Gap 5 BUN 18 Creatinine 1.01 Estimated GFR 76 L POC Glucose 125 H 99 Random Glucose 72 L Lactic Acid Calcium 8.2 L Total Bilirubin AST ALT Alkaline Phosphatase Total Protein Albumin 10/11/17 10/11/17 08:06 12:00 Sodium Potassium Chloride Carbon Dioxide Anion Gap BUN Creatinine Estimated GFR POC Glucose 74 123 H Random Glucose Lactic Acid Calcium Total Bilirubin AST ALT Alkaline Phosphatase Total Protein Albumin Imaging: ITS Impressions Chest X-Ray 10/09/17 23:07 CONCLUSION: 1. No acute cardiopulmonary abnormality is identified. 2. Right upper extremity PICC distal tip overlies the right axilla, likely in the right axillary vein. Physical Exam: GENERAL: NAD SKIN: Warm and dry. LINES: PICC in place, site looks OK HEAD: Normocephalic. EYES: No scleral icterus. No injection or drainage. NECK: Supple, trachea midline. No JVD or lymphadenopathy. CARDIOVASCULAR: Regular rate and rhythm without murmurs, gallops, or rubs. RESPIRATORY: Breath sounds equal bilaterally. No accessory muscle use. GASTROINTESTINAL: Abdomen soft, non-tender, nondistended. MUSCULOSKELETAL: No cyanosis, or edema. L foot with healing amputations sites and no edema or erythema BACK: Nontender without obvious deformity. No CVA tenderness. Assessment and Plan - Plan DFI, osteo L foot sp 5 th ray and 2nd toe amputations line sepsis 2/2 Acinetobacter ? from foot or PICC infection - vanco started, fever resolved cont vancomycin will add Rocephin tito hickman PICC New PICC after negative repeat clx doc'michael fu blood clx further rec's to follow
--- NOTE | 2017-10-11 17:01 | P.PN ---
Subjective Interval history: Follow-up for diabetic foot infection, osteomyelitis, failed outpatient treatment. The patient reports continued left foot swelling with some mild erythema. Denies fevers/chills. Denies any other medical complaints. Tolerating oral intake. Denies any erythema/edema at site of PICC. He does admit that his PICC "slid out" at home therefore he pushed it back in with his hands before he realized his hands were not clean. Physical Exam Vital signs: Vital Signs 10/10/17 20:00 10/11/17 00:00 10/11/17 04:00 Temperature 98.1 F 97.9 F Pulse Rate 68 62 58 L Respiratory Rate 16 16 18 Blood Pressure 110/64 98/58 L 100/58 L Pulse Oximetry 10/11/17 04:35 10/11/17 07:34 10/11/17 11:12 Temperature 97.6 F 97.6 F 97.6 F Pulse Rate 42 L 50 L Respiratory Rate 15 12 Blood Pressure 102/63 129/70 Pulse Oximetry 98 98 10/11/17 15:17 Temperature 97.8 F Pulse Rate 45 L Respiratory Rate 12 Blood Pressure 125/72 Pulse Oximetry 100 Intake & Output 10/10/17 10/11/17 10/11/17 18:59 06:59 18:59 Intake Total 2250 / 2250 1999 1017 / 1017 Balance 2250 / 2250 1999 1017 / 1017 Intake: IV 2250 / 2250 1999 1017 / 1017 NS Inj 1,000 ML @ 100 mls/hr IV 1999 667 / 667 .CONT .Q10H LEON Rx#:[id number] NS Inj 1,000 ML @ Wide Open IV. 1000 / 1000 SIG BOLUS ONE Rx#:[id number] Vancomycin Inj 1 gm In 200 ml @ 250 / 250 200 mls/hr IV.SIG FUR REMODELER LEON Rx#:[id number] Vancomycin Inj 1,000 MG In NS 250 / 250 Inj 250 ML @ 250 mls/hr IV.SIG Q18H LEON Rx#:[id number] Rocephin Inj 2,000 MG In NS Inj 100 / 100 100 ML @ 200 mls/hr IV.SIG Q24H LEON Rx#:[id number] Other: # Voids 2 Date of Last Bowel Movement 10/10/17 10/10/17 10/10/17 Narrative: GENERAL: Well-developed well-nourished middle aged male in [place]. SKIN: Warm and dry. HEAD: Normocephalic. EYES: No scleral icterus. No injection or drainage. NECK: Supple, trachea midline. No JVD or lymphadenopathy. CARDIOVASCULAR: Regular rate and rhythm without murmurs, gallops, or rubs. RESPIRATORY: Breath sounds equal bilaterally. No accessory muscle use. GASTROINTESTINAL: Abdomen soft, non-tender, nondistended. MUSCULOSKELETAL: No cyanosis, or edema. Left foot with sutures at site of resection fo 1st, 2nd, 5th ray; no drainage/erythema, mild edema at distal/mid- foot. NEUROLOGICAL: Awake and alert. No obvious cranial nerve deficits. Motor grossly within normal limits. Moving all extremities spontaneously. Normal speech. PSYCHIATRIC: Appropriate mood and affect; insight and judgment normal. Results - Labs CBC & Chem 7: 10/11/17 04:22 10/11/17 04:22 Laboratory Results - last 24 hr 10/10/17 10/10/17 10/11/17 09:20 18:05 04:22 WBC 5.8 RBC 2.92 L Hgb 8.7 L Hct 26.5 L MCV 90.8 MCH 29.9 MCHC 32.9 RDW 15.2 Plt Count 154 MPV 8.8 Prelim Diff (Auto) Manual diff required WBC Differential Manual diff final Seg Neuts % (Manual) 48 Band Neuts % (Manual) 11 H Lymphocytes % (Manual) 28 Monocytes % (Manual) 9 H Eosinophils % (Manual) 4 Abs Neuts (Manual) 3.4 Differential Comment . Platelet Estimate Normal Platelet Morphology Normal Sodium Potassium Chloride Carbon Dioxide Anion Gap BUN Creatinine Estimated GFR POC Glucose 99 Random Glucose Calcium Random Vancomycin Urine Opiates Screen Neg Ur Barbiturates Screen Neg Ur Amphetamines Screen Neg U Benzodiazepines Scrn Neg Urine Cocaine Screen Pos H U Cannabinoids Screen Neg 10/11/17 10/11/17 10/11/17 04:22 08:06 12:00 WBC RBC Hgb Hct MCV MCH MCHC RDW Plt Count MPV Prelim Diff (Auto) WBC Differential Seg Neuts % (Manual) Band Neuts % (Manual) Lymphocytes % (Manual) Monocytes % (Manual) Eosinophils % (Manual) Abs Neuts (Manual) Differential Comment Platelet Estimate Platelet Morphology Sodium 142 Potassium 4.6 D Chloride 111 H D Carbon Dioxide 26.3 Anion Gap 5 BUN 18 Creatinine 1.01 Estimated GFR 76 L POC Glucose 74 123 H Random Glucose 72 L Calcium 8.2 L Random Vancomycin 6.0 Urine Opiates Screen Ur Barbiturates Screen Ur Amphetamines Screen U Benzodiazepines Scrn Urine Cocaine Screen U Cannabinoids Screen Microbiology 10/09/17 23:15 Blood - Peripheral Aerobic Blood Culture - Preliminary Acinetobacter species 10/09/17 23:15 Blood - Peripheral Anaerobic Blood Culture - Preliminary No growth in 2 days 10/09/17 23:15 Blood - Peripheral Aerobic Blood Culture - Preliminary No growth in 2 days 10/09/17 23:15 Blood - Peripheral Anaerobic Blood Culture - Preliminary No growth in 2 days - Imaging Chest X-Ray 10/09/17 23:07 CONCLUSION: 1. No acute cardiopulmonary abnormality is identified. 2. Right upper extremity PICC distal tip overlies the right axilla, likely in the right axillary vein. Assessment and Plan - Assessment (1) Fever Code(s): R50.9 - Fever, unspecified Status: Acute (2) Osteomyelitis Code(s): M86.9 - Osteomyelitis, unspecified Status: Acute (3) Failure of outpatient treatment Code(s): Z78.9 - Other specified health status Status: Acute (4) Non compliance w medication regimen Code(s): Z91.14 - Patient's other noncompliance with medication regimen Status : Acute (5) DANILO (acute kidney injury) Code(s): N17.9 - Acute kidney failure, unspecified Status: Acute (6) History of substance abuse Code(s): Z87.898 - Personal history of other specified conditions Status: Acute (7) Depression Code(s): F32.9 - Major depressive disorder, single episode, unspecified Status : Chronic (8) Hyperlipidemia Code(s): E78.5 - Hyperlipidemia, unspecified Status: Chronic (9) COPD (chronic obstructive pulmonary disease) Code(s): J44.9 - Chronic obstructive pulmonary disease, unspecified Status: Chronic (10) Hypertension Code(s): I10 - Essential (primary) hypertension Status: Chronic (11) Diabetes Code(s): E11.9 - Type 2 diabetes mellitus without complications Status: Chronic - Plan 57-year-old male with history of left foot chronic infection positive for osteomyelitis and MRSA, status post resection of first ray, second ray and fifth ray. Noncompliant with medication treatment. Has a PICC line in place and is on vancomycin. Has missed four doses. Presented to the emergency room with hallucinations and fever. Lactic acid 1, no WBC elevation. Patient noted hypotensive, blood pressure 80s-90s. Left Foot Cellulitis/osteomyelitis S/P left foot toe resections, history of recent osteomyelitis and MRSA. Fever 103 with hypotension. WBC 9.4K. Failure of outpatient therapy Non compliance with medication treatment -Continue Vancomycin, pharmacy consult to manage. -Consult ID, appreciate assistance -Blood cultures with 03/04 Acinetobacter -Continue with NS at 100/hr -Consult podiatry, sutures can likely be removed, will defer to Dr. David Possible Bacteremia: / blood cultures with Acinetobacter. Patient does have PICC in place. -will remove PICC, repeat blood cultures, and once negative, will likely need PICC replaced Hypotension: acute. BP 90s/50s. -hold BP meds -continue IVF -monitor BP, improving DANILO: Cr 1.51, secondary to infection/dehydration -continue IVF hydration -Avoid nephrotoxic agents, holding CHUNG -repeat BMP shows improvement, Cr 1.01 Chronic pain/Chronic opioid use/History of polysubstance abuse -Resume methadone 200 mg p.o. daily, verified with methadone clinic Type 2 diabetes, on metformin -hold metformin due to acute kidney injury Accu-Cheks before meals and at bedtime with insulin therapy -Diabetic diet COPD/Tobacco abuse: Chronic, does not appear to be in exacerbation -DuoNeb's every 4 as needed -counseled on tobacco cessation All other medical conditions stable, continue home meds as appropriate. DVT prophylaxis: Heparin sq Discharge Planning: Not yet ready for discharge. Will need repeat blood cultures after PICC removed. Continue IV antibiotics. Will need ID clearance prior to discharge. (1) Fever Qualifiers: Fever type: unspecified Qualified Code(s): R50.9 - Fever, unspecified (2) Osteomyelitis Qualifiers: Osteomyelitis type: other chronic Osteomyelitis location: foot Laterality: unspecified laterality Qualified Code(s): M86.679 - Other chronic osteomyelitis , unspecified ankle and foot (7) Depression Qualifiers: Depression Type: unspecified Qualified Code(s): F32.9 - Major depressive disorder, single episode, unspecified (8) Hyperlipidemia Qualifiers: Hyperlipidemia type: unspecified Qualified Code(s): E78.5 - Hyperlipidemia, unspecified (9) COPD (chronic obstructive pulmonary disease) Qualifiers: Emphysema type: unspecified (10) Hypertension Qualifiers: Hypertension type: essential hypertension Qualified Code(s): I10 - Essential (primary) hypertension (11) Diabetes Qualifiers: Diabetes mellitus type: type 2 Diabetes mellitus jail insulin use: without jail use Diabetes mellitus complication status: with other specified complication Qualified Code(s): E11.69 - Type 2 diabetes mellitus with other specified complication
--- NOTE | 2017-10-11 23:52 | MB ---
cc: Danuta James DPM DATE: 10/11/2017 CHIEF COMPLAINT: Status post left second digit and partial fifth ray amputation on 08/29/[address] David. HISTORY OF PRESENT ILLNESS: Mr. Alva is a 57-year-old homeless male patient who had osteomyelitis in August leading to surgical amputation of the left second digit and partial fifth ray. He was noted to have some residual osteomyelitis and was discharged on a PICC line with outpatient antibiotics. The patient states that he has a hard time getting to the clinic because he feels they close too early and he missed several treatments. The patient presents today with a fever and was admitted for further evaluation. The patient appears to have a possible PICC line infection, but denies injecting any illegal drugs through his PICC line. PAST MEDICAL HISTORY: Includes depression, hyperlipidemia, hepatitis C, cirrhosis of the liver, COPD, chronic heart failure, hypertension, diabetes, osteomyelitis, chronic pain, MRSA history. PAST SURGICAL HISTORY: Includes amputations of the left foot, hernia repair, tonsillectomy, hemorrhoidectomy, left inguinal hernia repair. SOCIAL HISTORY: The patient is homeless. He states that he is currently on methadone treatment for drug abuse and is a smoker. FAMILY HISTORY: Noncontributory. VITAL SIGNS: Temperature is 98.1, pulse is 46, respiratory rate 18, blood pressure 140/70, oxygen 99% O2 on room air. LABORATORY DATA: White count 5.8, hemoglobin 8.7, hematocrit 26.5, platelets 154. Sodium 142, potassium 4.6, chloride 111, carbon dioxide 26.3, BUN 18. Toxicology report was positive for cocaine. Blood cultures positive for Enterobacter in the preliminary, but no growth in 2 days. PHYSICAL EXAMINATION: The patient has the first and second digits amputated and a partial fifth ray amputation. Sutures are intact and well coapted to the second digit amputation site; however, the partial fifth ray has a small area of dehiscence of approximately 0.5 x 0.2 x 0.2 cm with a fibrotic base. No exposed bone or tendon. Minimal drainage. No erythema. No malodor. ASSESSMENT: Status post left second digit amputation and partial fifth ray amputation. PLAN: 1. Suture removal and bandaging at bedside tomorrow. 2. Infectious disease has been consulted and is following the patient; however, I am unsure if he will be able to realistically complete the course of IV antibiotics. I will defer to them if there is an optional oral antibiotic based on prior cultures. Unfortunately, there is not a surgical option that would resolve this issue as removing the remaining fifth metatarsal base would create a very unstable foot and would provide no guarantees for full wound healing or eradication of the infection. 3. Continue IV antibiotics. 4. Keep dressings clean, dry and intact. We will place dressing orders after sutures are removed. Thank you for this consultation and allowing me to be involved in this patient's care. YANIQUE Quinonez/alexis , 09:10 PM , 09:19 PM
[2017-10-12] MEDS: Gabapentin 300 MG Capsule PO SCH ×3 (05:31→21:19)
[2017-10-12 06:15] LABS: Baso % (Auto) 0.6 % (0.0-2.0); Eos # (Auto) 0.3 th/mm3 (0.0-0.4); Eos % (Auto) 4.5 % (0.0-4.0); Hematocrit 27.3 % (39.0-51.0); Hemoglobin 8.8 gm/dL (13.0-17.0); Lymph # (Auto) 2.2 th/mm3 (1.0-4.8); Lymph % (Auto) 38.3 % (9.0-44.0); Mean Corpuscular HGB Conc 32.4 % (32.0-36.0); Mean Corpuscular Hemoglobin 29.3 pg (27.0-34.0); Mean Corpuscular Volume 90.6 fL (80.0-100.0); Mean Platelet Volume 8.7 fL (7.0-11.0); Mono # (Auto) 0.6 th/mm3 (0.0-0.9); Mono % (Auto) 10.2 % (0.0-8.0); Neut # (Auto) 2.6 th/mm3 (1.8-7.7); Neut % (Auto) 46.4 % (16.0-70.0); Platelet Count 172 th/mm3 (150-450); Red Blood Count 3.02 mil/mm3 (4.50-5.90); Red Cell Distribution Width 15.6 % (11.6-17.2); White Blood Count 5.7 th/mm3 (4.0-11.0)
[2017-10-12 06:27] LABS: Calcium 8.5 mg/dL (8.5-10.1); Carbon Dioxide 26.2 meq/L (21.0-32.0); Potassium 4.7 meq/L (3.5-5.1)
[2017-10-12] MEDS: Insulin NovoLIN Regular Correctional Sugar Inj SQ SCH ×4 (08:53→23:34)
[2017-10-12] MEDS: Vancomycin Inj 1,000 MG in Sodium Chlor 0.9% Inj 250 ML IV.SIG SCH (08:55)
[2017-10-12] MEDS: Senna/Docusate Sodium 8.6/50 MG Tablet PO SCH ×2 (09:05→21:19)
[2017-10-12] MEDS: Heparin - SQ 10,000 UNITS/ML Vial SQ SCH ×2 (09:05→21:19)
[2017-10-12] MEDS: Methadone 10 MG Tablet PO SCH (09:05)
[2017-10-12] MEDS: Sod Chloride 0.9% Inj 1,000 ML IV.CONT SCH (12:56)
[2017-10-12] MEDS: Heparin Central Flush 100 UNIT/ML 5 ML Vial IV.FLUSH SCH (12:59)
--- NOTE | 2017-10-12 16:09 | XR ---
EXAM DATE: 10/12/2017 3:22 PM EDT AGE/SEX: 57 years / Male INDICATIONS: Left foot pain. CLINICAL DATA: This is the patient's subsequent encounter. Patient reports that signs and symptoms h ave been present for 4 - 6 days and indicates a pain score of 4/10. MEDICAL/SURGICAL HISTORY: . Diabetes mellitus type II. Hypertension. Cirrhosis. . Toe amputatio ns. . COMPARISON: [facility] – [place], FOOT COMPLETE LEFT 3V, 09/26/2017. . FINDINGS: Transmetatarsal amputations of digits 1, 2 and 5. Digits 3 and 4 remain intact. The stump overlying t he first and second metatarsal amputations appears edematous. There is suggestion of some increasing demineralization along the ostomy border of the second metatarsal. In addition, there is now some cor tical irregularity at the first tarsometatarsal articulation. CONCLUSION: 1. Stable postsurgical changes with transmetatarsal amputations of digits 1, 2 and 5. 2. Increasing demineralization along the ostomy line of the second metatarsal and cortical irregular ity of the first tarsometatarsal articulation. Findings could represent developing osteomyelitis in b oth locations. 3. The stump soft tissues appear to be edematous. Electronically signed by: Ralph Muse MD 10/12/2017 4:08 PM EDT
--- NOTE | 2017-10-12 16:25 | P.PN ---
Subjective Interval history: Patient is seen lying in bed. He denies any chest pain or shortness of breath. No nausea vomiting or diarrhea. No fever or chills. He does have some intermittent discomfort in the left foot still. Physical Exam Vital signs: Vital Signs 10/11/17 20:00 10/12/17 00:00 10/12/17 07:49 Temperature 98.1 F 97.8 F 97.8 F Pulse Rate 46 L 44 L 46 L Respiratory Rate 18 17 14 Blood Pressure 140/70 150/78 H 131/88 Pulse Oximetry 99 98 98 10/12/17 11:56 Temperature 97.9 F Pulse Rate 47 L Respiratory Rate 12 Blood Pressure 127/71 Pulse Oximetry 97 Intake & Output 10/11/17 10/12/17 10/12/17 18:59 06:59 18:59 Intake Total 1017 / 1017 1000 / 1000 1250 / 1250 Balance 1017 / 1017 1000 / 1000 1250 / 1250 Intake: IV 1017 / 1017 1000 / 1000 1250 / 1250 NS Inj 1,000 ML @ 100 mls/hr IV 667 / 667 1000 / 1000 1000 / 1000 .CONT .Q10H [facility] Rx#:[id number] Vancomycin Inj 1,000 MG In NS 250 / 250 250 / 250 Inj 250 ML @ 250 mls/hr IV.SIG Q18H LEON Rx#:[id number] Rocephin Inj 2,000 MG In NS Inj 100 / 100 100 ML @ 200 mls/hr IV.SIG Q24H LEON Rx#:[id number] Other: Date of Last Bowel Movement 10/10/17 10/10/17 Narrative: GENERAL: Well-developed well-nourished middle aged male in [facility]. SKIN: Warm and dry. HEAD: Normocephalic. EYES: No scleral icterus. No injection or drainage. CARDIOVASCULAR: Regular rate and rhythm without murmurs, gallops, or rubs. RESPIRATORY: Breath sounds equal bilaterally. No accessory muscle use. GASTROINTESTINAL: Abdomen soft, non-tender, nondistended. MUSCULOSKELETAL: No cyanosis, or edema. Left foot with sutures at site of resection fo 1st, 2nd, 5th ray; no drainage/erythema, mild edema at distal/mid- foot. NEUROLOGICAL: Awake and alert. No obvious cranial nerve deficits. Motor grossly within normal limits. Moving all extremities spontaneously. Normal speech. PSYCHIATRIC: Appropriate mood and affect; insight and judgment normal. Results - Labs CBC & Chem 7: 10/12/17 05:30 10/12/17 05:30 Laboratory Results - last 24 hr 10/11/17 10/11/17 10/12/17 17:28 23:11 05:30 WBC 5.7 RBC 3.02 L Hgb 8.8 L Hct 27.3 L MCV 90.6 MCH 29.3 MCHC 32.4 RDW 15.6 Plt Count 172 MPV 8.7 Neut % (Auto) 46.4 Lymph % (Auto) 38.3 Whitfield % (Auto) 10.2 H Eos % (Auto) 4.5 H Baso % (Auto) 0.6 Neut # (Auto) 2.6 Lymph # (Auto) 2.2 Whitfield # (Auto) 0.6 Eos # (Auto) 0.3 Baso # (Auto) 0.0 WBC Differential . Differential Comment Auto diff final Sodium Potassium Chloride Carbon Dioxide Anion Gap BUN Creatinine Estimated GFR POC Glucose 88 127 H Random Glucose Calcium 10/12/17 10/12/17 10/12/17 05:30 08:53 12:52 WBC RBC Hgb Hct MCV MCH MCHC RDW Plt Count MPV Neut % (Auto) Lymph % (Auto) Whitfield % (Auto) Eos % (Auto) Baso % (Auto) Neut # (Auto) Lymph # (Auto) Whitfield # (Auto) Eos # (Auto) Baso # (Auto) WBC Differential Differential Comment Sodium 144 Potassium 4.7 Chloride 113 H Carbon Dioxide 26.2 Anion Gap 5 BUN 18 Creatinine 1.08 Estimated GFR 70 L POC Glucose 83 90 Random Glucose 60 L Calcium 8.5 Microbiology 10/09/17 23:15 Blood - Peripheral Aerobic Blood Culture - Preliminary No growth in 3 days 10/09/17 23:15 Blood - Peripheral Anaerobic Blood Culture - Preliminary No growth in 3 days 10/09/17 23:15 Blood - Peripheral Aerobic Blood Culture - Preliminary Acinetobacter species 10/09/17 23:15 Blood - Peripheral Anaerobic Blood Culture - Preliminary No growth in 3 days - Imaging Impressions Foot X-Ray 10/12/17 00:00 CONCLUSION: 1. Stable postsurgical changes with transmetatarsal amputations of digits 1, 2 and 5. 2. Increasing demineralization along the ostomy line of the second metatarsal and cortical irregularity of the first tarsometatarsal articulation. Findings could represent developing osteomyelitis in both locations. 3. The stump soft tissues appear to be edematous. Assessment and Plan - Assessment (1) Fever Code(s): R50.9 - Fever, unspecified Status: Acute (2) Osteomyelitis Code(s): M86.9 - Osteomyelitis, unspecified Status: Acute (3) Failure of outpatient treatment Code(s): Z78.9 - Other specified health status Status: Acute (4) Non compliance w medication regimen Code(s): Z91.14 - Patient's other noncompliance with medication regimen Status : Acute (5) DANILO (acute kidney injury) Code(s): N17.9 - Acute kidney failure, unspecified Status: Acute (6) History of substance abuse Code(s): Z87.898 - Personal history of other specified conditions Status: Acute (7) Depression Code(s): F32.9 - Major depressive disorder, single episode, unspecified Status : Chronic (8) Hyperlipidemia Code(s): E78.5 - Hyperlipidemia, unspecified Status: Chronic (9) COPD (chronic obstructive pulmonary disease) Code(s): J44.9 - Chronic obstructive pulmonary disease, unspecified Status: Chronic (10) Hypertension Code(s): I10 - Essential (primary) hypertension Status: Chronic (11) Diabetes Code(s): E11.9 - Type 2 diabetes mellitus without complications Status: Chronic - Plan 57-year-old male with history of left foot chronic infection positive for osteomyelitis and MRSA, status post resection of first ray, second ray and fifth ray. Failed outpatient antibiotic treatment; possible PICC infection. Presented to the emergency room with hallucinations and fever. Lactic acid 1, no WBC elevation. Patient noted hypotensive, blood pressure 80s-90s. Left Foot Cellulitis/osteomyelitis S/P left foot toe resections, history of recent osteomyelitis and MRSA. Fever 103 with hypotension. WBC 9.4K. Failure of outpatient therapy Non compliance with medication treatment -Continue Vancomycin, pharmacy consult to manage. -Consult ID, appreciate assistance; ID added Rocephin -Blood cultures with 1/4 Acinetobacter -Continue with NS at 100/hr -Consult podiatry, sutures can likely be removed, will defer to Dr. David -X-ray 10/12 indicates possible additional osteomyelitis Possible Bacteremia: 1/4 blood cultures with Acinetobacter. Patient does have PICC in place. -will remove PICC, repeat blood cultures, and once negative, will likely need PICC replaced Hypotension: acute. BP 90s/50s. -hold BP meds -continue IVF -monitor BP, improving DANILO: Cr 1.51, secondary to infection/dehydration -continue IVF hydration -Avoid nephrotoxic agents, holding CHUNG -repeat BMP shows improvement, Cr 1.01 Chronic pain/Chronic opioid use/History of polysubstance abuse -Resume methadone 200 mg p.o. daily, verified with methadone clinic Type 2 diabetes, on metformin -hold metformin due to acute kidney injury Accu-Cheks before meals and at bedtime with insulin therapy -Diabetic diet COPD/Tobacco abuse: Chronic, does not appear to be in exacerbation -DuoNeb's every 4 as needed -counseled on tobacco cessation All other medical conditions stable, continue home meds as appropriate. DVT prophylaxis: Heparin sq Discharge Planning: Not yet ready for discharge. Will need repeat blood cultures after PICC removed. Continue IV antibiotics. Will need ID clearance prior to discharge. (1) Fever Qualifiers: Fever type: unspecified Qualified Code(s): R50.9 - Fever, unspecified (2) Osteomyelitis Qualifiers: Osteomyelitis type: other chronic Osteomyelitis location: foot Laterality: unspecified laterality Qualified Code(s): M86.679 - Other chronic osteomyelitis , unspecified ankle and foot (7) Depression Qualifiers: Depression Type: unspecified Qualified Code(s): F32.9 - Major depressive disorder, single episode, unspecified (8) Hyperlipidemia Qualifiers: Hyperlipidemia type: unspecified Qualified Code(s): E78.5 - Hyperlipidemia, unspecified (9) COPD (chronic obstructive pulmonary disease) Qualifiers: Emphysema type: unspecified (10) Hypertension Qualifiers: Hypertension type: essential hypertension Qualified Code(s): I10 - Essential (primary) hypertension (11) Diabetes Qualifiers: Diabetes mellitus type: type 2 Diabetes mellitus skilled nursing insulin use: without terminal block assembler use Diabetes mellitus complication status: with other specified complication Qualified Code(s): E11.69 - Type 2 diabetes mellitus with other specified complication
--- NOTE | 2017-10-12 17:05 | P.PNADD ---
Addendum to Inpatient Note Additional information: dw Dr James Pt has same isolate form the L foot and from blood suspect ongoing osteo on plain film - MRI foot w/wo c
[2017-10-12] MEDS ORDERED: Gadobutrol PF 7.5 MMOL/7.5 ML Vial (for RAD) IV.SIG ONE (19:04)
--- NOTE | 2017-10-12 19:35 | MR ---
EXAM DATE: 10/12/2017 7:20 PM EDT AGE/SEX: 57 years / Male INDICATIONS: Osteomyelitis. Wound in toe area and lateral aspect of left foot. Status post multip le foot amputations. Abnormal plain film exam demonstrating suggestion of increasing demineralization along the second metatarsal and cortical irregularity along the first metatarsal tarsal articulation . CLINICAL DATA: This is the patient's subsequent encounter. Patient reports that signs and symptoms have been present for 2 weeks and indicates a pain score of 0/10. MEDICAL/SURGICAL HISTORY: Diabetes. Tonsillectomy. Hemorrhoidectomy. Umbilical hernia repair. Multiple toe amputations of left foot. [place] [facility] [place]/25/[place]. . TECHNIQUE: Multiplanar, multisequence MRI examination was performed without contrast and after th e intravenous administration of 6 ml Gadavist (gadobutrol) single exam dose. FINDINGS: The patient is again noted to be status post amputation of the first digit down to the level of the m id metatarsal. There is amputation the second digit down to level of the neck of the metatarsal. Ther e is also amputation of the fifth digit down to the base of the metatarsal. The first metatarsal tarsal joint is unremarkable in appearance with no marrow edema or destructive c hange. There is mild residual marrow edema noted in the distal portion of the first metatarsal at the amputation site. There is edema noted in the distal residual portion of the second metatarsal as wel l at the site of recent amputation. There is stable marrow edema involving the digital base of the fi fth metatarsal. There is diffuse soft tissue edema again noted. There is no distinct abscess. The thi rd and fourth phalanges and metatarsals remain stable and intact. CONCLUSION: 1. Status post recent amputation of the second digit down to the level of the metatarsal neck with e satinder edema in this area which likely is postoperative. 2. Stable residual edema in the residual fifth metatarsal base which is nonspecific. 3. Mild residual marrow edema is an noted in the residual distal portion of the first metatarsal at the amputation site. 4. The first metatarsal tarsal joint is intact with no marrow edema or destructive change. Electronically signed by: Delroy Gan MD 10/12/2017 7:34 PM EDT
[2017-10-13] MEDS: Vancomycin Inj 1,000 MG in Sodium Chlor 0.9% Inj 250 ML IV.SIG SCH ×2 (02:15→20:37)
[2017-10-13] MEDS: Sod Chloride 0.9% Inj 1,000 ML IV.CONT SCH ×3 (03:28→13:57)
[2017-10-13] MEDS: Gabapentin 300 MG Capsule PO SCH ×3 (05:44→22:33)
[2017-10-13] MEDS: Heparin - SQ 10,000 UNITS/ML Vial SQ SCH ×2 (08:59→22:33)
[2017-10-13] MEDS: Insulin NovoLIN Regular Correctional Sugar Inj SQ SCH ×4 (09:00→22:27)
[2017-10-13] MEDS: Senna/Docusate Sodium 8.6/50 MG Tablet PO SCH ×2 (09:00→22:26)
[2017-10-13] MEDS: Heparin Central Flush 100 UNIT/ML 5 ML Vial IV.FLUSH SCH (09:00)
[2017-10-13] MEDS: Methadone 10 MG Tablet PO SCH (10:05)
--- NOTE | 2017-10-13 11:07 | P.PNPOD ---
Subjective Interval history: Left foot s/p 2nd digit and partial 5th ray amputations with . Recent + blood cultures. Pt denies any current pain/n/v/f/h/c/sob. Physical Exam Vital signs: Vital Signs 10/12/17 11:56 10/12/17 16:00 10/12/17 20:00 Temperature 97.9 F 98.2 F 98.9 F Pulse Rate 47 L 46 L 58 L Respiratory Rate 12 12 18 Blood Pressure 127/71 129/92 H 129/89 Pulse Oximetry 97 98 100 10/13/17 00:00 10/13/17 04:00 10/13/17 08:00 Temperature 97.8 F 97.7 F Pulse Rate 45 L 48 L 51 L Respiratory Rate 20 22 16 Blood Pressure 150/72 H 142/67 H 169/68 H Pulse Oximetry 97 96 96 Intake & Output 10/12/17 10/13/17 10/13/17 18:59 06:59 18:59 Intake Total 1250 / 1250 2350 / 2350 Balance 1250 / 1250 2350 / 2350 Intake: IV 1250 / 1250 2350 / 2350 NS Inj 1,000 ML @ 100 mls/hr IV 1000 / 1000 2000 / 2000 .CONT .Q10H [facility] Rx#:[id number] Vancomycin Inj 1,000 MG In NS 250 / 250 250 / 250 Inj 250 ML @ 250 mls/hr IV.SIG Q18H [facility] Rx#:[id number] Rocephin Inj 2,000 MG In NS Inj 100 / 100 100 ML @ 200 mls/hr IV.SIG Q24H [facility] Rx#:[id number] Other: Date of Last Bowel Movement 10/10/17 10/10/17 Narrative: Skin edges well coapted after medial suture removal, no erythema, no drainage. Mild dehisence to central aspect of lateral incision after suture removal, approximately 0.5cm x 0.2cm x 0.2cm , fibrotic wound bed but no exposed bone or tendon. Medications and Allergies Active Medications: Active Medications Acetaminophen (Tylenol) 650 mg PO Q4H PRN PRN Reason: Temp > 100.4 Al Hydroxide/Mg Hydroxide (Milk Of Magnesia Liq) 30 ml PO Q12H PRN PRN Reason: Mild Constipation Albuterol (Ventolin Hfa Inh) 2 puff INH Q4H PRN PRN Reason: Shortness Of Breath Albuterol (Duoneb Neb (Prn)) 1 ampul NEB Q4HR NEB PRN PRN Reason: WHEEZING Bisacodyl (Dulcolax Supp) 10 mg RECTAL DAILY PRN PRN Reason: SEVERE CONSITIPATION Dextrose (D50w Vial) 50 ml IV.PUSH UNSCH PRN PRN Reason: PER HYPOGLYCEMIA PROTOCOL Gabapentin (Neurontin) 300 mg PO Q8HR REPLACED BY [facility] Last Admin: 10/13/17 05:44 Dose: 300 mg Glucagon (Glucagon Inj) 1 mg OTHER UNSCH PRN PRN Reason: for Hypoglycemia Protocol Heparin Sodium (Porcine) (Heparin Inj) 5,000 units SQ Q12HR REPLACED BY [facility] Last Admin: 10/13/17 08:59 Dose: 5,000 units Heparin Sodium (Porcine) (Heparin Central Flush) 0 unit IV.FLUSH DAILY REPLACED BY [facility] Last Admin: 10/13/17 09:00 Dose: Not Given Heparin Sodium (Porcine) (Heparin Central Flush) 0 unit IV.FLUSH UNSCH PRN PRN Reason: Flush PICC Line Sodium Chloride (Ns Inj) 1,000 mls @ 100 mls/hr IV.CONT .Q10H REPLACED BY [facility] Last Admin: 10/13/17 05:44 Dose: 100 mls/hr Pharmacy Profile Note (Vancomycin Consult Pharmacy) 0 mls @ 0 mls/hr OTHER UNSCH REPLACED BY [facility] Vancomycin HCl 1,000 mg/ (Sodium Chloride) 250 mls @ 250 mls/hr IV.SIG Q18H REPLACED BY [facility] Last Infusion: 10/13/17 03:29 Dose: Infused Ceftriaxone Sodium 2,000 mg/ (Sodium Chloride) 100 mls @ 200 mls/hr IV.SIG Q24H REPLACED BY [facility] Last Infusion: 10/12/17 20:46 Dose: Infused Insulin Human Regular (Novolin R Correctional Sugar Inj) 0 units SQ ACHS REPLACED BY [facility]; Protocol Last Admin: 10/13/17 09:00 Dose: Not Given Lactulose (Lactulose Liq) 30 ml PO DAILY PRN PRN Reason: SEVERE CONSITIPATION Methadone HCl (Dolophine) 200 mg PO DAILY REPLACED BY [facility] Last Admin: 10/13/17 10:05 Dose: 200 mg Miscellaneous Information ([facility] Ordered Lab Info) 0 each OTHER ONCE ONE Stop: 10/13/17 19:46 Ondansetron HCl (Zofran Inj) 4 mg IV.PUSH Q6H PRN PRN Reason: NAUSEA OR VOMITING Senna/Docusate Sodium (Veena-Colace) 1 tab PO BID REPLACED BY [facility] Last Admin: 10/13/17 09:00 Dose: Not Given Sennosides (Senokot) 17.2 mg PO Q12H PRN PRN Reason: Moderate Constipation Sodium Chloride (Ns Flush) 0 ml IV.FLUSH DAILY REPLACED BY [facility] Last Admin: 10/13/17 09:00 Dose: Not Given Sodium Chloride (Ns Flush) 0 ml IV.FLUSH UNSCH PRN PRN Reason: Flush After Blood Draws Sodium Chloride (Ns Flush) 0 ml IV.FLUSH UNSCH PRN PRN Reason: FLUSH AFTER USING IV ACCESS Temazepam (Restoril) 15 mg PO HS PRN PRN Reason: INSOMNIA Allergies Allergy/AdvReac Type Severity Reaction Status Date / Time codeine AdvReac Severe NAUSEA Verified 10/09/17 21:54 Home Medications Medication Instructions Recorded Confirmed Type amlodipine 5 mg PO DAILY 08/28/17 10/10/17 History lisinopril 10 mg PO DAILY 08/28/17 10/10/17 History metformin 500 mg PO BIDPC 08/28/17 10/10/17 History methadone 200 mg PO DAILY 08/28/17 10/10/17 History vancomycin 1.25 gm IV DAILY 10/03/17 10/10/17 History Results - Labs CBC & Chem 7: 10/12/17 05:30 10/12/17 05:30 Laboratory Results - last 24 hr 10/12/17 10/12/17 10/12/17 12:52 17:10 22:41 POC Glucose 90 91 96 10/13/17 10/13/17 08:58 09:38 POC Glucose 72 83 Microbiology 10/09/17 23:15 Blood - Peripheral Aerobic Blood Culture - Preliminary No growth in 4 days 10/09/17 23:15 Blood - Peripheral Anaerobic Blood Culture - Preliminary No growth in 4 days 10/09/17 23:15 Blood - Peripheral Aerobic Blood Culture - Preliminary Acinetobacter species 10/09/17 23:15 Blood - Peripheral Anaerobic Blood Culture - Preliminary No growth in 4 days - Imaging Impressions Foot MRI 10/12/17 00:00 CONCLUSION: 1. Status post recent amputation of the second digit down to the level of the metatarsal neck with edema edema in this area which likely is postoperative. 2. Stable residual edema in the residual fifth metatarsal base which is nonspecific. 3. Mild residual marrow edema is an noted in the residual distal portion of the first metatarsal at the amputation site. 4. The first metatarsal tarsal joint is intact with no marrow edema or destructive change. Foot X-Ray 10/12/17 00:00 CONCLUSION: 1. Stable postsurgical changes with transmetatarsal amputations of digits 1, 2 and 5. 2. Increasing demineralization along the ostomy line of the second metatarsal and cortical irregularity of the first tarsometatarsal articulation. Findings could represent developing osteomyelitis in both locations. 3. The stump soft tissues appear to be edematous. Assessment and Plan - Assessment (1) Osteomyelitis Code(s): M86.9 - Osteomyelitis, unspecified Status: Acute - Plan - d/w , blood cxs are consistent with wound cxs from previous admission, MRI ordered at her recommendation. - MRI does nto show OM of 5th metatarsal base - cont iv abx in house, will defer to ID to determine best abx options for out patient - no surgical intervention needed from podiatry - wound care orders placed for nursing staff - f/u with one week after d/c (1) Osteomyelitis Qualifiers: Osteomyelitis type: other chronic Osteomyelitis location: foot Laterality: unspecified laterality Qualified Code(s): M86.679 - Other chronic osteomyelitis , unspecified ankle and foot
[2017-10-13 13:06] LABS: Baso % (Auto) 0.4 % (0.0-2.0); Eos # (Auto) 0.2 th/mm3 (0.0-0.4); Eos % (Auto) 3.1 % (0.0-4.0); Hemoglobin 8.6 gm/dL (13.0-17.0); Lymph # (Auto) 1.9 th/mm3 (1.0-4.8); Lymph % (Auto) 31.3 % (9.0-44.0); Mean Corpuscular HGB Conc 34.5 % (32.0-36.0); Mean Corpuscular Hemoglobin 30.8 pg (27.0-34.0); Mean Corpuscular Volume 89.2 fL (80.0-100.0); Mean Platelet Volume 8.4 fL (7.0-11.0); Mono # (Auto) 0.5 th/mm3 (0.0-0.9); Mono % (Auto) 7.6 % (0.0-8.0); Neut # (Auto) 3.6 th/mm3 (1.8-7.7); Neut % (Auto) 57.6 % (16.0-70.0); Platelet Count 193 th/mm3 (150-450); Red Blood Count 2.81 mil/mm3 (4.50-5.90); Red Cell Distribution Width 15.2 % (11.6-17.2); White Blood Count 6.2 th/mm3 (4.0-11.0)
[2017-10-13 13:32] LABS: Anion Gap 6 meq/L (5-15); Aspartate Aminotransferase 20 U/L (15-37); Blood Urea Nitrogen 16 mg/dL (7-18); Calcium 8.1 mg/dL (8.5-10.1); Carbon Dioxide 28.5 meq/L (21.0-32.0); Chloride 109 meq/L (98-107); Glomerular Filtration Rate 64 mL/min (>89); Glucose,Random 106 mg/dL (74-106); Potassium 4.2 meq/L (3.5-5.1); Sodium 143 meq/L (136-145)
[2017-10-13 13:33] LABS: Albumin 2.4 g/dL (3.4-5.0)
[2017-10-13 13:38] LABS: Alanine Aminotransferase 17 U/L (12-78); Alkaline Phosphatase 98 U/L (45-117); Total Protein 6.2 g/dL (6.4-8.2)
--- NOTE | 2017-10-13 15:32 | P.PN ---
Subjective Interval history: Patient is seen lying quietly in bed. He tells me that he has not had any problems overnight but he does mention swallowing problems that he had been having for some time that he thinks might be getting worse. He reports feeling of food getting stuck mid throat whenever he eats. He does get some acid reflux. He has not been evaluated by ENT or GI. No coughing while eating. No nausea or vomiting. Physical Exam Vital signs: Vital Signs 10/12/17 16:00 10/12/17 20:00 10/13/17 00:00 Temperature 98.2 F 98.9 F 97.8 F Pulse Rate 46 L 58 L 45 L Respiratory Rate 12 18 20 Blood Pressure 129/92 H 129/89 150/72 H Pulse Oximetry 98 100 97 10/13/17 04:00 10/13/17 08:00 10/13/17 12:00 Temperature 97.7 F 97.8 F Pulse Rate 48 L 51 L 48 L Respiratory Rate 22 16 16 Blood Pressure 142/67 H 169/68 H 137/67 Pulse Oximetry 96 96 95 Intake & Output 10/12/17 10/13/17 10/13/17 18:59 06:59 18:59 Intake Total 1250 / 1250 2350 / 2350 1000 / 1000 Output Total 1500 / 1500 Balance 1250 / 1250 2350 / 2350 -500 / -500 Intake: IV 1250 / 1250 2350 / 2350 1000 / 1000 NS Inj 1,000 ML @ 100 mls/hr IV 1000 / 1000 2000 / 2000 1000 / 1000 .CONT .Q10H [facility] Rx#:[id number] Vancomycin Inj 1,000 MG In NS 250 / 250 250 / 250 Inj 250 ML @ 250 mls/hr IV.SIG Q18H [facility] Rx#:[id number] Rocephin Inj 2,000 MG In NS Inj 100 / 100 100 ML @ 200 mls/hr IV.SIG Q24H [facility] Rx#:[id number] Output: Urine 1500 / 1500 Other: # Voids 3 Date of Last Bowel Movement 10/10/17 10/10/17 10/11/17 Narrative: GENERAL: Well-developed well-nourished middle aged male in [place]. SKIN: Warm and dry. HEAD: Normocephalic. EYES: No scleral icterus. No injection or drainage. CARDIOVASCULAR: Regular rate and rhythm without murmurs, gallops, or rubs. RESPIRATORY: Breath sounds equal bilaterally. No accessory muscle use. GASTROINTESTINAL: Abdomen soft, non-tender, nondistended. MUSCULOSKELETAL: No cyanosis, or edema. Left foot with sutures at site of resection fo 1st, 2nd, 5th ray; no drainage/erythema, mild edema at distal/mid- foot. NEUROLOGICAL: Awake and alert. No obvious cranial nerve deficits. Motor grossly within normal limits. Moving all extremities spontaneously. Normal speech. PSYCHIATRIC: Appropriate mood and affect; insight and judgment normal. Results - Labs CBC & Chem 7: 10/13/17 12:10 10/13/17 12:10 Laboratory Results - last 24 hr 10/12/17 10/12/17 10/13/17 17:10 22:41 08:58 WBC RBC Hgb Hct MCV MCH MCHC RDW Plt Count MPV Neut % (Auto) Lymph % (Auto) Bullock % (Auto) Eos % (Auto) Baso % (Auto) Neut # (Auto) Lymph # (Auto) Bullock # (Auto) Eos # (Auto) Baso # (Auto) WBC Differential Differential Comment Sodium Potassium Chloride Carbon Dioxide Anion Gap BUN Creatinine Estimated GFR POC Glucose 91 96 72 Random Glucose Calcium Total Bilirubin AST ALT Alkaline Phosphatase Total Protein Albumin 10/13/17 10/13/17 10/13/17 09:38 12:10 12:10 WBC 6.2 RBC 2.81 L Hgb 8.6 L Hct 25.0 L MCV 89.2 MCH 30.8 MCHC 34.5 RDW 15.2 Plt Count 193 MPV 8.4 Neut % (Auto) 57.6 Lymph % (Auto) 31.3 Bullock % (Auto) 7.6 Eos % (Auto) 3.1 Baso % (Auto) 0.4 Neut # (Auto) 3.6 Lymph # (Auto) 1.9 Bullock # (Auto) 0.5 Eos # (Auto) 0.2 Baso # (Auto) 0.0 WBC Differential . Differential Comment Auto diff final Sodium 143 Potassium 4.2 Chloride 109 H Carbon Dioxide 28.5 Anion Gap 6 BUN 16 Creatinine 1.16 Estimated GFR 64 L POC Glucose 83 Random Glucose 106 Calcium 8.1 L Total Bilirubin 0.1 L AST 20 ALT 17 Alkaline Phosphatase 98 Total Protein 6.2 L D Albumin 2.4 L 10/13/17 12:19 WBC RBC Hgb Hct MCV MCH MCHC RDW Plt Count MPV Neut % (Auto) Lymph % (Auto) Bullock % (Auto) Eos % (Auto) Baso % (Auto) Neut # (Auto) Lymph # (Auto) Bullock # (Auto) Eos # (Auto) Baso # (Auto) WBC Differential Differential Comment Sodium Potassium Chloride Carbon Dioxide Anion Gap BUN Creatinine Estimated GFR POC Glucose 132 H Random Glucose Calcium Total Bilirubin AST ALT Alkaline Phosphatase Total Protein Albumin Microbiology 10/09/17 23:15 Blood - Peripheral Aerobic Blood Culture - Preliminary No growth in 4 days 10/09/17 23:15 Blood - Peripheral Anaerobic Blood Culture - Preliminary No growth in 4 days 10/09/17 23:15 Blood - Peripheral Aerobic Blood Culture - Preliminary Acinetobacter species 10/09/17 23:15 Blood - Peripheral Anaerobic Blood Culture - Preliminary No growth in 4 days - Imaging Impressions Foot MRI 10/12/17 00:00 CONCLUSION: 1. Status post recent amputation of the second digit down to the level of the metatarsal neck with edema edema in this area which likely is postoperative. 2. Stable residual edema in the residual fifth metatarsal base which is nonspecific. 3. Mild residual marrow edema is an noted in the residual distal portion of the first metatarsal at the amputation site. 4. The first metatarsal tarsal joint is intact with no marrow edema or destructive change. Foot X-Ray 10/12/17 00:00 CONCLUSION: 1. Stable postsurgical changes with transmetatarsal amputations of digits 1, 2 and 5. 2. Increasing demineralization along the ostomy line of the second metatarsal and cortical irregularity of the first tarsometatarsal articulation. Findings could represent developing osteomyelitis in both locations. 3. The stump soft tissues appear to be edematous. Assessment and Plan - Assessment (1) Fever Code(s): R50.9 - Fever, unspecified Status: Acute (2) Osteomyelitis Code(s): M86.9 - Osteomyelitis, unspecified Status: Acute (3) Failure of outpatient treatment Code(s): Z78.9 - Other specified health status Status: Acute (4) Non compliance w medication regimen Code(s): Z91.14 - Patient's other noncompliance with medication regimen Status : Acute (5) DANILO (acute kidney injury) Code(s): N17.9 - Acute kidney failure, unspecified Status: Acute (6) History of substance abuse Code(s): Z87.898 - Personal history of other specified conditions Status: Acute (7) Depression Code(s): F32.9 - Major depressive disorder, single episode, unspecified Status : Chronic (8) Hyperlipidemia Code(s): E78.5 - Hyperlipidemia, unspecified Status: Chronic (9) COPD (chronic obstructive pulmonary disease) Code(s): J44.9 - Chronic obstructive pulmonary disease, unspecified Status: Chronic (10) Hypertension Code(s): I10 - Essential (primary) hypertension Status: Chronic (11) Diabetes Code(s): E11.9 - Type 2 diabetes mellitus without complications Status: Chronic - Plan 57-year-old male with history of left foot chronic infection positive for osteomyelitis and MRSA, status post resection of first ray, second ray and fifth ray. Failed outpatient antibiotic treatment; possible PICC infection. Presented to the emergency room with hallucinations and fever. Lactic acid 1, no WBC elevation. Patient noted hypotensive, blood pressure 80s-90s. Left Foot Cellulitis/osteomyelitis S/P left foot toe resections, history of recent osteomyelitis and MRSA. Fever 103 with hypotension. WBC 9.4K. Failure of outpatient therapy Non compliance with medication treatment -Continue Vancomycin, pharmacy consult to manage. -Consult ID, appreciate assistance; ID added Rocephin -Blood cultures with 1/4 Acinetobacter -Consult podiatry, sutures removed 10/12, no surgical intervention indicated per podiatry ;follow-up 1 week after discharge with Dr. David -X-ray 10/12 indicates possible additional osteomyelitis; MRI 10/12 did not support osteomyelitis. Possible Bacteremia: 1/4 blood cultures with Acinetobacter. Patient does have PICC in place. -will remove PICC, repeat blood cultures, and once negative, will likely need PICC replaced Hypertension, chronic -Restart home BP meds -Hypotension at admit resolved. DANILO: Cr 1.51, secondary to infection/dehydration; resolved -NS at 100/hr; fluid stopped 10/13. -Avoid nephrotoxic agents Chronic pain/Chronic opioid use/History of polysubstance abuse -Resume methadone 200 mg p.o. daily, verified with methadone clinic Type 2 diabetes, on metformin -hold metformin due to acute kidney injury Accu-Cheks before meals and at bedtime with insulin therapy -Diabetic diet COPD/Tobacco abuse: Chronic, does not appear to be in exacerbation -DuoNeb's every 4 as needed -counseled on tobacco cessation Dysphagia; possible stricture -Swallow evaluation ordered -Daily PPI DVT prophylaxis: Heparin sq Discharge Planning: Not yet ready for discharge. Will need repeat blood cultures after PICC removed. Continue IV antibiotics. Will need ID clearance prior to discharge. (1) Fever Qualifiers: Fever type: unspecified Qualified Code(s): R50.9 - Fever, unspecified (2) Osteomyelitis Qualifiers: Osteomyelitis type: other chronic Osteomyelitis location: foot Laterality: unspecified laterality Qualified Code(s): M86.679 - Other chronic osteomyelitis , unspecified ankle and foot (7) Depression Qualifiers: Depression Type: unspecified Qualified Code(s): F32.9 - Major depressive disorder, single episode, unspecified (8) Hyperlipidemia Qualifiers: Hyperlipidemia type: unspecified Qualified Code(s): E78.5 - Hyperlipidemia, unspecified (9) COPD (chronic obstructive pulmonary disease) Qualifiers: Emphysema type: unspecified (10) Hypertension Qualifiers: Hypertension type: essential hypertension Qualified Code(s): I10 - Essential (primary) hypertension (11) Diabetes Qualifiers: Diabetes mellitus type: type 2 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
[2017-10-13] MEDS: amLODIPine 5 MG Tablet PO SCH (16:06)
--- NOTE | 2017-10-13 19:20 | P.PNID ---
Subjective Remarks: pt is growing Acinetobacter in 1/4 bottle dw microlab: no resistance markers were indicated previously pt grew ramirez S Acinetobacter in the L foot abscess feels OK no fever co dysphagia, difficulty swalloing solids - dw Dr Palacios MRI not cw osteo Antibiotics: CFTX vancomycin Allergies/Adverse Reactions: Allergies codeine Adverse Reaction (Severe, Verified 10/09/17 21:54) NAUSEA Objective Vital Signs 10/12/17 20:00 10/13/17 00:00 10/13/17 04:00 Temperature 98.9 F 97.8 F Pulse Rate 58 L 45 L 48 L Respiratory Rate 18 20 22 Blood Pressure 129/89 150/72 H 142/67 H Pulse Oximetry 100 97 96 10/13/17 08:00 10/13/17 12:00 10/13/17 16:00 Temperature 97.7 F 97.8 F 98.3 F Pulse Rate 51 L 48 L 47 L Respiratory Rate 16 16 16 Blood Pressure 169/68 H 137/67 149/77 H Pulse Oximetry 96 95 97 10/13/17 18:20 Temperature 97.7 F Pulse Rate 50 L Respiratory Rate 18 Blood Pressure 159/75 H Pulse Oximetry 94 L Intake & Output 10/13/17 10/13/17 10/14/17 06:59 18:59 06:59 Intake Total 2350 / 2350 1000 / 1000 Output Total 2200 / 2200 Balance 2350 / 2350 -1200 / -1200 Intake: IV 2350 / 2350 1000 / 1000 NS Inj 1,000 ML @ 100 mls/hr IV 2000 / 2000 1000 / 1000 .CONT .Q10H [facility] Rx#:[id number] Vancomycin Inj 1,000 MG In NS 250 / 250 Inj 250 ML @ 250 mls/hr IV.SIG Q18H [facility] Rx#:[id number] Rocephin Inj 2,000 MG In NS Inj 100 / 100 100 ML @ 200 mls/hr IV.SIG Q24H [facility] Rx#:[id number] Output: Urine 2200 / 2200 Other: # Voids 3 Date of Last Bowel Movement 10/10/17 10/11/17 # Bowel Movements 1 10/09/17 23:15 Blood - Peripheral Aerobic Blood Culture - Preliminary No growth in 4 days 10/09/17 23:15 Blood - Peripheral Anaerobic Blood Culture - Preliminary No growth in 4 days 10/09/17 23:15 Blood - Peripheral Aerobic Blood Culture - Preliminary Acinetobacter species 10/09/17 23:15 Blood - Peripheral Anaerobic Blood Culture - Preliminary No growth in 4 days Lab - Hematology Results 10/12/17 10/13/17 05:30 12:10 WBC 5.7 6.2 RBC 3.02 L 2.81 L Hgb 8.8 L 8.6 L Hct 27.3 L 25.0 L MCV 90.6 89.2 MCH 29.3 30.8 MCHC 32.4 34.5 RDW 15.6 15.2 Plt Count 172 193 MPV 8.7 8.4 Neut % (Auto) 46.4 57.6 Lymph % (Auto) 38.3 31.3 Pope % (Auto) 10.2 H 7.6 Eos % (Auto) 4.5 H 3.1 Baso % (Auto) 0.6 0.4 Neut # (Auto) 2.6 3.6 Lymph # (Auto) 2.2 1.9 Pope # (Auto) 0.6 0.5 Eos # (Auto) 0.3 0.2 Baso # (Auto) 0.0 0.0 WBC Differential . . Differential Comment Auto diff final Auto diff final Lab - Chemistry Results 10/11/17 10/12/17 10/12/17 23:11 05:30 08:53 Sodium 144 Potassium 4.7 Chloride 113 H Carbon Dioxide 26.2 Anion Gap 5 BUN 18 Creatinine 1.08 Estimated GFR 70 L POC Glucose 127 H 83 Random Glucose 60 L Calcium 8.5 Total Bilirubin AST ALT Alkaline Phosphatase Total Protein Albumin 10/12/17 10/12/17 10/12/17 12:52 17:10 22:41 Sodium Potassium Chloride Carbon Dioxide Anion Gap BUN Creatinine Estimated GFR POC Glucose 90 91 96 Random Glucose Calcium Total Bilirubin AST ALT Alkaline Phosphatase Total Protein Albumin 10/13/17 10/13/17 10/13/17 08:58 09:38 12:10 Sodium 143 Potassium 4.2 Chloride 109 H Carbon Dioxide 28.5 Anion Gap 6 BUN 16 Creatinine 1.16 Estimated GFR 64 L POC Glucose 72 83 Random Glucose 106 Calcium 8.1 L Total Bilirubin 0.1 L AST 20 ALT 17 Alkaline Phosphatase 98 Total Protein 6.2 L D Albumin 2.4 L 10/13/17 10/13/17 12:19 17:13 Sodium Potassium Chloride Carbon Dioxide Anion Gap BUN Creatinine Estimated GFR POC Glucose 132 H 98 Random Glucose Calcium Total Bilirubin AST ALT Alkaline Phosphatase Total Protein Albumin Imaging: ITS Impressions Chest X-Ray 10/09/17 23:07 CONCLUSION: 1. No acute cardiopulmonary abnormality is identified. 2. Right upper extremity PICC distal tip overlies the right axilla, likely in the right axillary vein. Foot MRI 10/12/17 00:00 CONCLUSION: 1. Status post recent amputation of the second digit down to the level of the metatarsal neck with edema edema in this area which likely is postoperative. 2. Stable residual edema in the residual fifth metatarsal base which is nonspecific. 3. Mild residual marrow edema is an noted in the residual distal portion of the first metatarsal at the amputation site. 4. The first metatarsal tarsal joint is intact with no marrow edema or destructive change. Foot X-Ray 10/12/17 00:00 CONCLUSION: 1. Stable postsurgical changes with transmetatarsal amputations of digits 1, 2 and 5. 2. Increasing demineralization along the ostomy line of the second metatarsal and cortical irregularity of the first tarsometatarsal articulation. Findings could represent developing osteomyelitis in both locations. 3. The stump soft tissues appear to be edematous. Physical Exam: GENERAL: NAD SKIN: Warm and dry. HEAD: Normocephalic. EYES: No scleral icterus. No injection or drainage. NECK: Supple, trachea midline. No JVD or lymphadenopathy. CARDIOVASCULAR: Regular rate and rhythm without murmurs, gallops, or rubs. RESPIRATORY: Breath sounds equal bilaterally. No accessory muscle use. GASTROINTESTINAL: Abdomen soft, non-tender, nondistended. MUSCULOSKELETAL: No cyanosis, or edema. L foot with dressing in palce BACK: Nontender without obvious deformity. No CVA tenderness. Assessment and Plan - Plan DFI, osteo L foot sp 5 th ray and 2nd toe amputations MRI negative for osteo Probably line sepsis 2/2 Acinetobacter ? from foot or PICC infection - vanco started, fever resolved cont vancomycin cont Rocephin New PICC after negative repeat clx doc'michael x 72 hrs fu blood clx case was dw Dr James
[2017-10-13] MEDS ORDERED: Pharmacy Ordered Lab Info OTHER ONE (19:45)
[2017-10-14] MEDS: Gabapentin 300 MG Capsule PO SCH ×3 (06:02→21:42)
[2017-10-14 07:37] LABS: Baso # (Auto) 0.1 th/mm3 (0.0-0.2); Baso % (Auto) 0.7 % (0.0-2.0); Eos # (Auto) 0.2 th/mm3 (0.0-0.4); Eos % (Auto) 2.9 % (0.0-4.0); Hematocrit 27.1 % (39.0-51.0); Hemoglobin 9.2 gm/dL (13.0-17.0); Lymph # (Auto) 2.6 th/mm3 (1.0-4.8); Lymph % (Auto) 36.1 % (9.0-44.0); Mean Corpuscular HGB Conc 33.8 % (32.0-36.0); Mean Corpuscular Hemoglobin 30.4 pg (27.0-34.0); Mean Platelet Volume 8.4 fL (7.0-11.0); Mono # (Auto) 0.5 th/mm3 (0.0-0.9); Mono % (Auto) 7.4 % (0.0-8.0); Neut # (Auto) 3.9 th/mm3 (1.8-7.7); Neut % (Auto) 52.9 % (16.0-70.0); Platelet Count 198 th/mm3 (150-450); Red Blood Count 3.01 mil/mm3 (4.50-5.90); White Blood Count 7.3 th/mm3 (4.0-11.0)
[2017-10-14 07:54] LABS: Calcium 8.3 mg/dL (8.5-10.1); Carbon Dioxide 28.1 meq/L (21.0-32.0); Potassium 3.9 meq/L (3.5-5.1)
[2017-10-14] MEDS: Insulin NovoLIN Regular Correctional Sugar Inj SQ SCH ×4 (09:30→20:07)
[2017-10-14] MEDS: amLODIPine 5 MG Tablet PO SCH (09:31)
[2017-10-14] MEDS: Lisinopril 10 MG Tablet PO SCH (09:31)
[2017-10-14] MEDS: Pantoprazole Sodium 20 MG DR Tablet PO SCH (09:31)
[2017-10-14] MEDS: Heparin - SQ 10,000 UNITS/ML Vial SQ SCH ×2 (09:31→20:00)
[2017-10-14] MEDS: Methadone 10 MG Tablet PO SCH (09:32)
[2017-10-14] MEDS: Senna/Docusate Sodium 8.6/50 MG Tablet PO SCH ×2 (09:33→20:03)
[2017-10-14] MEDS: Heparin Central Flush 100 UNIT/ML 5 ML Vial IV.FLUSH SCH (09:33)
--- NOTE | 2017-10-14 15:43 | P.PN ---
Subjective Interval history: Patient was seen lying comfortably in bed. Denies any adverse events or changes in condition. Foot pain is well controlled. No nausea vomiting diarrhea. No fever or chills. Physical Exam Vital signs: Vital Signs 10/13/17 16:00 10/13/17 18:20 10/14/17 00:37 Temperature 98.3 F 97.7 F 98.7 F Pulse Rate 47 L 50 L 50 L Respiratory Rate 16 18 18 Blood Pressure 149/77 H 159/75 H 153/81 H Pulse Oximetry 97 94 L 95 10/14/17 04:44 10/14/17 08:00 10/14/17 12:00 Temperature 97.7 F 98.4 F 98.0 F Pulse Rate 48 L 44 L 50 L Respiratory Rate 18 16 Blood Pressure 153/71 H 140/71 131/67 Pulse Oximetry 93 L 98 96 10/14/17 15:06 10/14/17 15:14 Temperature 97.2 F L Pulse Rate 55 L Respiratory Rate 16 18 Blood Pressure 122/79 Pulse Oximetry 94 L Intake & Output 10/13/17 10/14/17 10/14/17 18:59 06:59 18:59 Intake Total 1000 / 1000 1350 / 1350 100 / 100 Output Total 2200 / 2200 4600 / 4600 1000 / 1000 Balance -1200 / -1200 -3250 / -3250 -900 / -900 Weight 63.503 kg Intake: IV 1000 / 1000 1350 / 1350 100 / 100 NS Inj 1,000 ML @ 100 mls/hr IV 1000 / 1000 1000 / 1000 .CONT .Q10H [facility] Rx#:[id number] Vancomycin Inj 1,000 MG In NS 250 / 250 Inj 250 ML @ 250 mls/hr IV.SIG Q18H [facility] Rx#:[id number] Rocephin Inj 2,000 MG In NS Inj 100 / 100 100 / 100 100 ML @ 200 mls/hr IV.SIG Q24H [facility] Rx#:[id number] Output: Urine 2200 / 2200 4600 / 4600 1000 / 1000 Other: # Voids 3 Date of Last Bowel Movement 10/11/17 10/11/17 10/11/17 # Bowel Movements 1 Narrative: GENERAL: Well-developed well-nourished middle aged male in [facility]. SKIN: Warm and dry. HEAD: Normocephalic. EYES: No scleral icterus. No injection or drainage. CARDIOVASCULAR: Regular rate and rhythm without murmurs, gallops, or rubs. RESPIRATORY: Breath sounds equal bilaterally. No accessory muscle use. GASTROINTESTINAL: Abdomen soft, non-tender, nondistended. MUSCULOSKELETAL: No cyanosis, or edema. Left foot with sutures at site of resection fo 1st, 2nd, 5th ray; no drainage/erythema, mild edema at distal/mid- foot. NEUROLOGICAL: Awake and alert. No obvious cranial nerve deficits. Motor grossly within normal limits. Moving all extremities spontaneously. Normal speech. PSYCHIATRIC: Appropriate mood and affect; insight and judgment normal. Results - Labs CBC & Chem 7: 10/14/17 06:55 10/14/17 06:55 Laboratory Results - last 24 hr 10/13/17 10/13/17 10/13/17 17:13 20:00 20:30 WBC RBC Hgb Hct MCV MCH MCHC RDW Plt Count MPV Neut % (Auto) Lymph % (Auto) [place] % (Auto) Eos % (Auto) Baso % (Auto) Neut # (Auto) Lymph # (Auto) [place] # (Auto) Eos # (Auto) Baso # (Auto) WBC Differential Differential Comment Sodium Potassium Chloride Carbon Dioxide Anion Gap BUN Creatinine Estimated GFR POC Glucose 98 114 H Random Glucose Calcium Vancomycin Trough 17.3 H 10/14/17 10/14/17 10/14/17 06:55 06:55 09:21 WBC 7.3 RBC 3.01 L Hgb 9.2 L Hct 27.1 L MCV 90.0 MCH 30.4 MCHC 33.8 RDW 15.0 Plt Count 198 MPV 8.4 Neut % (Auto) 52.9 Lymph % (Auto) 36.1 [place] % (Auto) 7.4 Eos % (Auto) 2.9 Baso % (Auto) 0.7 Neut # (Auto) 3.9 Lymph # (Auto) 2.6 [place] # (Auto) 0.5 Eos # (Auto) 0.2 Baso # (Auto) 0.1 WBC Differential . Differential Comment Auto diff final Sodium 142 Potassium 3.9 Chloride 107 Carbon Dioxide 28.1 Anion Gap 7 BUN 16 Creatinine 1.14 Estimated GFR 66 L POC Glucose 92 Random Glucose 124 H Calcium 8.3 L Vancomycin Trough 10/14/17 12:49 WBC RBC Hgb Hct MCV MCH MCHC RDW Plt Count MPV Neut % (Auto) Lymph % (Auto) [place] % (Auto) Eos % (Auto) Baso % (Auto) Neut # (Auto) Lymph # (Auto) [place] # (Auto) Eos # (Auto) Baso # (Auto) WBC Differential Differential Comment Sodium Potassium Chloride Carbon Dioxide Anion Gap BUN Creatinine Estimated GFR POC Glucose 71 Random Glucose Calcium Vancomycin Trough Microbiology 10/09/17 23:15 Blood - Peripheral Aerobic Blood Culture - Final No growth in 5 days 10/09/17 23:15 Blood - Peripheral Anaerobic Blood Culture - Final No growth in 5 days 10/09/17 23:15 Blood - Peripheral Aerobic Blood Culture - Preliminary Acinetobacter clarence cplx/haemol gram negative rods 10/09/17 23:15 Blood - Peripheral Anaerobic Blood Culture - Final No growth in 5 days Assessment and Plan - Assessment (1) Fever Code(s): R50.9 - Fever, unspecified Status: Acute (2) Osteomyelitis Code(s): M86.9 - Osteomyelitis, unspecified Status: Acute (3) Failure of outpatient treatment Code(s): Z78.9 - Other specified health status Status: Acute (4) Non compliance w medication regimen Code(s): Z91.14 - Patient's other noncompliance with medication regimen Status : Acute (5) DANILO (acute kidney injury) Code(s): N17.9 - Acute kidney failure, unspecified Status: Acute (6) History of substance abuse Code(s): Z87.898 - Personal history of other specified conditions Status: Acute (7) Depression Code(s): F32.9 - Major depressive disorder, single episode, unspecified Status : Chronic (8) Hyperlipidemia Code(s): E78.5 - Hyperlipidemia, unspecified Status: Chronic (9) COPD (chronic obstructive pulmonary disease) Code(s): J44.9 - Chronic obstructive pulmonary disease, unspecified Status: Chronic (10) Hypertension Code(s): I10 - Essential (primary) hypertension Status: Chronic (11) Diabetes Code(s): E11.9 - Type 2 diabetes mellitus without complications Status: Chronic - Plan 57-year-old male with history of left foot chronic infection positive for osteomyelitis and MRSA, status post resection of first ray, second ray and fifth ray. Failed outpatient antibiotic treatment; possible PICC infection. Presented to the emergency room with hallucinations and fever. Lactic acid 1, no WBC elevation. Patient noted hypotensive, blood pressure 80s-90s. Left Foot Cellulitis/osteomyelitis S/P left foot toe resections, history of recent osteomyelitis and MRSA. Fever 103 with hypotension. WBC now Failure of outpatient therapy Non compliance with medication treatment -Continue Vancomycin, pharmacy consult to manage. -Consult ID, appreciate assistance; ID added Rocephin -Blood cultures with 03/04 Acinetobacter -Consult podiatry, sutures removed 10/12, no surgical intervention indicated per podiatry ;follow-up 1 week after discharge with Dr. David -X-ray 10/12 indicates possible additional osteomyelitis; MRI 10/12 did not support osteomyelitis. Possible Bacteremia: 03/04 blood cultures with Acinetobacter. Patient does have PICC in place. -will remove PICC, repeat blood cultures, and once negative, will likely need PICC replaced Hypertension, chronic -Restart home BP meds -Hypotension at admit resolved. DANILO: Cr 1.51, secondary to infection/dehydration; resolved -NS at 100/hr; fluid stopped 10/13. -Avoid nephrotoxic agents Chronic pain/Chronic opioid use/History of polysubstance abuse -Resume methadone 200 mg p.o. daily, verified with methadone clinic Type 2 diabetes, on metformin -hold metformin due to acute kidney injury Accu-Cheks before meals and at bedtime with insulin therapy -Diabetic diet COPD/Tobacco abuse: Chronic, does not appear to be in exacerbation -DuoNeb's every 4 as needed -counseled on tobacco cessation Dysphagia; possible stricture -Swallow evaluation ordered -no issues. Confirmed likely stricture and recommend follow-up with GI. Can be done as outpatient. -Daily PPI DVT prophylaxis: Heparin sq Discharge Planning: Not yet ready for discharge. Will need repeat blood cultures after PICC removed. Continue IV antibiotics. Will need ID clearance prior to discharge. (1) Fever Qualifiers: Fever type: unspecified Qualified Code(s): R50.9 - Fever, unspecified (2) Osteomyelitis Qualifiers: Osteomyelitis type: other chronic Osteomyelitis location: foot Laterality: unspecified laterality Qualified Code(s): M86.679 - Other chronic osteomyelitis , unspecified ankle and foot (7) Depression Qualifiers: Depression Type: unspecified Qualified Code(s): F32.9 - Major depressive disorder, single episode, unspecified (8) Hyperlipidemia Qualifiers: Hyperlipidemia type: unspecified Qualified Code(s): E78.5 - Hyperlipidemia, unspecified (9) COPD (chronic obstructive pulmonary disease) Qualifiers: Emphysema type: unspecified (10) Hypertension Qualifiers: Hypertension type: essential hypertension Qualified Code(s): I10 - Essential (primary) hypertension (11) Diabetes Qualifiers: Diabetes mellitus type: type 2 Diabetes mellitus skilled nursing insulin use: without skilled nursing use Diabetes mellitus complication status: with other specified complication Qualified Code(s): E11.69 - Type 2 diabetes mellitus with other specified complication
--- NOTE | 2017-10-14 17:19 | P.PNID ---
Subjective Remarks: pt is growing Acinetobacter in 1/4 bottle and is growing a 2nd gram neg: dw microlab afebrile PICC removed MRI not cw osteo Antibiotics: CFTX vancomycin Allergies/Adverse Reactions: Allergies codeine Adverse Reaction (Severe, Verified 10/09/17 21:54) NAUSEA Objective Vital Signs 10/13/17 18:20 10/14/17 00:37 10/14/17 04:44 Temperature 97.7 F 98.7 F 97.7 F Pulse Rate 50 L 50 L 48 L Respiratory Rate 18 18 18 Blood Pressure 159/75 H 153/81 H 153/71 H Pulse Oximetry 94 L 95 93 L 10/14/17 08:00 10/14/17 12:00 10/14/17 15:06 Temperature 98.4 F 98.0 F Pulse Rate 44 L 50 L Respiratory Rate 16 16 Blood Pressure 140/71 131/67 Pulse Oximetry 98 96 10/14/17 15:14 Temperature 97.2 F L Pulse Rate 55 L Respiratory Rate 18 Blood Pressure 122/79 Pulse Oximetry 94 L Intake & Output 10/13/17 10/14/17 10/14/17 18:59 06:59 18:59 Intake Total 1000 / 1000 1350 / 1350 100 / 100 Output Total 2200 / 2200 4600 / 4600 1000 / 1000 Balance -1200 / -1200 -3250 / -3250 -900 / -900 Weight 63.503 kg Intake: IV 1000 / 1000 1350 / 1350 100 / 100 NS Inj 1,000 ML @ 100 mls/hr IV 1000 / 1000 1000 / 1000 .CONT .Q10H [facility] Rx#:[id number] Vancomycin Inj 1,000 MG In NS 250 / 250 Inj 250 ML @ 250 mls/hr IV.SIG Q18H [facility] Rx#:[id number] Rocephin Inj 2,000 MG In NS Inj 100 / 100 100 / 100 100 ML @ 200 mls/hr IV.SIG Q24H [facility] Rx#:[id number] Output: Urine 2200 / 2200 4600 / 4600 1000 / 1000 Other: # Voids 3 Date of Last Bowel Movement 10/11/17 10/11/17 10/11/17 # Bowel Movements 1 10/09/17 23:15 Blood - Peripheral Aerobic Blood Culture - Final No growth in 5 days 10/09/17 23:15 Blood - Peripheral Anaerobic Blood Culture - Final No growth in 5 days 10/09/17 23:15 Blood - Peripheral Aerobic Blood Culture - Preliminary Acinetobacter clarence cplx/haemol gram negative rods 10/09/17 23:15 Blood - Peripheral Anaerobic Blood Culture - Final No growth in 5 days Lab - Hematology Results 10/13/17 10/14/17 12:10 06:55 WBC 6.2 7.3 RBC 2.81 L 3.01 L Hgb 8.6 L 9.2 L Hct 25.0 L 27.1 L MCV 89.2 90.0 MCH 30.8 30.4 MCHC 34.5 33.8 RDW 15.2 15.0 Plt Count 193 198 MPV 8.4 8.4 Neut % (Auto) 57.6 52.9 Lymph % (Auto) 31.3 36.1 [place] % (Auto) 7.6 7.4 Eos % (Auto) 3.1 2.9 Baso % (Auto) 0.4 0.7 Neut # (Auto) 3.6 3.9 Lymph # (Auto) 1.9 2.6 [place] # (Auto) 0.5 0.5 Eos # (Auto) 0.2 0.2 Baso # (Auto) 0.0 0.1 WBC Differential . . Differential Comment Auto diff final Auto diff final Lab - Chemistry Results 10/12/17 10/13/17 10/13/17 22:41 08:58 09:38 Sodium Potassium Chloride Carbon Dioxide Anion Gap BUN Creatinine Estimated GFR POC Glucose 96 72 83 Random Glucose Calcium Total Bilirubin AST ALT Alkaline Phosphatase Total Protein Albumin 10/13/17 10/13/17 10/13/17 12:10 12:19 17:13 Sodium 143 Potassium 4.2 Chloride 109 H Carbon Dioxide 28.5 Anion Gap 6 BUN 16 Creatinine 1.16 Estimated GFR 64 L POC Glucose 132 H 98 Random Glucose 106 Calcium 8.1 L Total Bilirubin 0.1 L AST 20 ALT 17 Alkaline Phosphatase 98 Total Protein 6.2 L D Albumin 2.4 L 10/13/17 10/14/17 10/14/17 20:30 06:55 09:21 Sodium 142 Potassium 3.9 Chloride 107 Carbon Dioxide 28.1 Anion Gap 7 BUN 16 Creatinine 1.14 Estimated GFR 66 L POC Glucose 114 H 92 Random Glucose 124 H Calcium 8.3 L Total Bilirubin AST ALT Alkaline Phosphatase Total Protein Albumin 10/14/17 10/14/17 12:49 17:01 Sodium Potassium Chloride Carbon Dioxide Anion Gap BUN Creatinine Estimated GFR POC Glucose 71 156 H Random Glucose Calcium Total Bilirubin AST ALT Alkaline Phosphatase Total Protein Albumin Imaging: ITS Impressions Chest X-Ray 10/09/17 23:07 CONCLUSION: 1. No acute cardiopulmonary abnormality is identified. 2. Right upper extremity PICC distal tip overlies the right axilla, likely in the right axillary vein. Foot MRI 10/12/17 00:00 CONCLUSION: 1. Status post recent amputation of the second digit down to the level of the metatarsal neck with edema edema in this area which likely is postoperative. 2. Stable residual edema in the residual fifth metatarsal base which is nonspecific. 3. Mild residual marrow edema is an noted in the residual distal portion of the first metatarsal at the amputation site. 4. The first metatarsal tarsal joint is intact with no marrow edema or destructive change. Foot X-Ray 10/12/17 00:00 CONCLUSION: 1. Stable postsurgical changes with transmetatarsal amputations of digits 1, 2 and 5. 2. Increasing demineralization along the ostomy line of the second metatarsal and cortical irregularity of the first tarsometatarsal articulation. Findings could represent developing osteomyelitis in both locations. 3. The stump soft tissues appear to be edematous. Physical Exam: GENERAL: NAD SKIN: Warm and dry. HEAD: Normocephalic. EYES: No scleral icterus. No injection or drainage. NECK: Supple, trachea midline. No JVD or lymphadenopathy. CARDIOVASCULAR: Regular rate and rhythm without murmurs, gallops, or rubs. RESPIRATORY: Breath sounds equal bilaterally. No accessory muscle use. GASTROINTESTINAL: Abdomen soft, non-tender, nondistended. MUSCULOSKELETAL: No cyanosis, or edema. L foot with dressing in palce BACK: Nontender without obvious deformity. No CVA tenderness. Assessment and Plan - Plan DFI, osteo L foot sp 5 th ray and 2nd toe amputations MRI negative for osteo Probably line sepsis 2/2 Acinetobacter ? from foot or PICC infection 2nd GNB from blood clx cont vancomycin cont Rocephin New PICC after negative repeat clx doc'michael x 72 hrs fu blood clx dw microlab
[2017-10-14] MEDS: Vancomycin Inj 1,000 MG in Sodium Chlor 0.9% Inj 250 ML IV.SIG SCH (17:44)
--- NOTE | 2017-10-14 18:47 | P.PNPOD ---
Subjective Interval history: Patient seen bedside. Resting comfortable with no concerns. Denies any N,V,F, Ch. Physical Exam Vital signs: Vital Signs 10/14/17 00:37 10/14/17 04:44 10/14/17 08:00 Temperature 98.7 F 97.7 F 98.4 F Pulse Rate 50 L 48 L 44 L Respiratory Rate 18 18 Blood Pressure 153/81 H 153/71 H 140/71 Pulse Oximetry 95 93 L 98 10/14/17 12:00 10/14/17 15:06 10/14/17 15:14 Temperature 98.0 F 97.2 F L Pulse Rate 50 L 55 L Respiratory Rate 16 16 18 Blood Pressure 131/67 122/79 Pulse Oximetry 96 94 L 10/14/17 16:00 Temperature 97.1 F L Pulse Rate 65 Respiratory Rate 21 Blood Pressure 134/81 Pulse Oximetry 94 L Intake & Output 10/13/17 10/14/17 10/14/17 18:59 06:59 18:59 Intake Total 1000 / 1000 1350 / 1350 580 / 580 Output Total 2200 / 2200 4600 / 4600 1000 / 1000 Balance -1200 / -1200 -3250 / -3250 -420 / -420 Weight 63.503 kg Intake: IV 1000 / 1000 1350 / 1350 100 / 100 NS Inj 1,000 ML @ 100 mls/hr IV 1000 / 1000 1000 / 1000 .CONT .Q10H [facility] Rx#:[id number] Vancomycin Inj 1,000 MG In NS 250 / 250 Inj 250 ML @ 250 mls/hr IV.SIG Q18H [facility] Rx#:[id number] Rocephin Inj 2,000 MG In NS Inj 100 / 100 100 / 100 100 ML @ 200 mls/hr IV.SIG Q24H [facility] Rx#:[id number] Oral 480 / 480 Output: Urine 2200 / 2200 4600 / 4600 1000 / 1000 Other: # Voids 3 Date of Last Bowel Movement 10/11/17 10/11/17 10/11/17 # Bowel Movements 1 Narrative: Vasc: DP/PT diminished. [employer]ER[employer] present to digits present to bilateral foot. Mild edema noted bilaterally. Neuro: Decreased pin point sensation. Derm: superficial abrasion noted to dorsally at digital amputation site with no drainage. Lateral foot ulceration at most proximal incision site with mild serous drainage and fibrogranular base. No acute signs of infection. MSK: Multiple amputations noted to left foot. No tenderness or pain on palpation of left foot. Medications and Allergies Active Medications: Active Medications Acetaminophen (Tylenol) 650 mg PO Q4H PRN PRN Reason: Temp > 100.4 Al Hydroxide/Mg Hydroxide (Milk Of Bruno Liq) 30 ml PO Q12H PRN PRN Reason: Mild Constipation Albuterol (Ventolin Hfa Inh) 2 puff INH Q4H PRN PRN Reason: Shortness Of Breath Albuterol (Duoneb Neb (Prn)) 1 ampul NEB Q4HR NEB PRN PRN Reason: WHEEZING Amlodipine Besylate (Norvasc) 5 mg PO DAILY [facility] Last Admin: 10/14/17 09:31 Dose: 5 mg Bisacodyl (Dulcolax Supp) 10 mg RECTAL DAILY PRN PRN Reason: SEVERE CONSITIPATION Dextrose (D50w Vial) 50 ml IV.PUSH UNSCH PRN PRN Reason: PER HYPOGLYCEMIA PROTOCOL Gabapentin (Neurontin) 300 mg PO Q8HR [facility] Last Admin: 10/14/17 13:01 Dose: 300 mg Glucagon (Glucagon Inj) 1 mg OTHER UNSCH PRN PRN Reason: for Hypoglycemia Protocol Heparin Sodium (Porcine) (Heparin Inj) 5,000 units SQ Q12HR [facility] Last Admin: 10/14/17 09:31 Dose: 5,000 units Heparin Sodium (Porcine) (Heparin Central Flush) 0 unit IV.FLUSH DAILY [facility] Last Admin: 10/14/17 09:33 Dose: Not Given Heparin Sodium (Porcine) (Heparin Central Flush) 0 unit IV.FLUSH UNSCH PRN PRN Reason: Flush PICC Line Pharmacy Profile Note (Vancomycin Consult Pharmacy) 0 mls @ 0 mls/hr OTHER UNSCH [facility] Vancomycin HCl 1,000 mg/ (Sodium Chloride) 250 mls @ 250 mls/hr IV.SIG Q18H [facility] Last Admin: 10/14/17 17:44 Dose: 250 mls/hr Ceftriaxone Sodium 2,000 mg/ (Sodium Chloride) 100 mls @ 200 mls/hr IV.SIG Q24H [facility] Last Infusion: 10/14/17 13:51 Dose: Infused Insulin Human Regular (Novolin R Correctional Sugar Inj) 0 units SQ ACHS [facility]; Protocol Last Admin: 10/14/17 17:44 Dose: 1 units Lactulose (Lactulose Liq) 30 ml PO DAILY PRN PRN Reason: SEVERE CONSITIPATION Lisinopril (Prinivil) 10 mg PO DAILY [facility] Last Admin: 10/14/17 09:31 Dose: 10 mg Methadone HCl (Dolophine) 200 mg PO DAILY [facility] Last Admin: 10/14/17 09:32 Dose: 200 mg Ondansetron HCl (Zofran Inj) 4 mg IV.PUSH Q6H PRN PRN Reason: NAUSEA OR VOMITING Pantoprazole Sodium (Protonix) 20 mg PO DAILY [facility] Last Admin: 10/14/17 09:31 Dose: 20 mg Senna/Docusate Sodium (Veena-Colace) 1 tab PO BID [facility] Last Admin: 10/14/17 09:33 Dose: Not Given Sennosides (Senokot) 17.2 mg PO Q12H PRN PRN Reason: Moderate Constipation Silver Sulfadiazine (Silvadene 1% Cream (50 Gm)) 1 applicatio TOPICAL DAILY [facility] Sodium Chloride (Ns Flush) 0 ml IV.FLUSH DAILY [facility] Last Admin: 10/14/17 09:31 Dose: 10 ml Sodium Chloride (Ns Flush) 0 ml IV.FLUSH UNSCH PRN PRN Reason: Flush After Blood Draws Sodium Chloride (Ns Flush) 0 ml IV.FLUSH UNSCH PRN PRN Reason: FLUSH AFTER USING IV ACCESS Allergies Allergy/AdvReac Type Severity Reaction Status Date / Time codeine AdvReac Severe NAUSEA Verified 10/09/17 21:54 Home Medications Medication Instructions Recorded Confirmed Type amlodipine 5 mg PO DAILY 08/28/17 10/10/17 History lisinopril 10 mg PO DAILY 08/28/17 10/10/17 History metformin 500 mg PO BIDPC 08/28/17 10/10/17 History methadone 200 mg PO DAILY 08/28/17 10/10/17 History vancomycin 1.25 gm IV DAILY 10/03/17 10/10/17 History Results - Labs CBC & Chem 7: 10/14/17 06:55 10/14/17 06:55 Laboratory Results - last 24 hr 10/13/17 10/13/17 10/14/17 20:00 20:30 06:55 WBC 7.3 RBC 3.01 L Hgb 9.2 L Hct 27.1 L MCV 90.0 MCH 30.4 MCHC 33.8 RDW 15.0 Plt Count 198 MPV 8.4 Neut % (Auto) 52.9 Lymph % (Auto) 36.1 [place] % (Auto) 7.4 Eos % (Auto) 2.9 Baso % (Auto) 0.7 Neut # (Auto) 3.9 Lymph # (Auto) 2.6 [place] # (Auto) 0.5 Eos # (Auto) 0.2 Baso # (Auto) 0.1 WBC Differential . Differential Comment Auto diff final Sodium Potassium Chloride Carbon Dioxide Anion Gap BUN Creatinine Estimated GFR POC Glucose 114 H Random Glucose Calcium Vancomycin Trough 17.3 H 10/14/17 10/14/17 10/14/17 06:55 09:21 12:49 WBC RBC Hgb Hct MCV MCH MCHC RDW Plt Count MPV Neut % (Auto) Lymph % (Auto) [place] % (Auto) Eos % (Auto) Baso % (Auto) Neut # (Auto) Lymph # (Auto) [place] # (Auto) Eos # (Auto) Baso # (Auto) WBC Differential Differential Comment Sodium 142 Potassium 3.9 Chloride 107 Carbon Dioxide 28.1 Anion Gap 7 BUN 16 Creatinine 1.14 Estimated GFR 66 L POC Glucose 92 71 Random Glucose 124 H Calcium 8.3 L Vancomycin Trough 10/14/17 17:01 WBC RBC Hgb Hct MCV MCH MCHC RDW Plt Count MPV Neut % (Auto) Lymph % (Auto) [place] % (Auto) Eos % (Auto) Baso % (Auto) Neut # (Auto) Lymph # (Auto) [place] # (Auto) Eos # (Auto) Baso # (Auto) WBC Differential Differential Comment Sodium Potassium Chloride Carbon Dioxide Anion Gap BUN Creatinine Estimated GFR POC Glucose 156 H Random Glucose Calcium Vancomycin Trough Microbiology 10/09/17 23:15 Blood - Peripheral Aerobic Blood Culture - Final No growth in 5 days 10/09/17 23:15 Blood - Peripheral Anaerobic Blood Culture - Final No growth in 5 days 10/09/17 23:15 Blood - Peripheral Aerobic Blood Culture - Preliminary Acinetobacter clarence cplx/haemol gram negative rods 10/09/17 23:15 Blood - Peripheral Anaerobic Blood Culture - Final No growth in 5 days Assessment and Plan - Assessment (1) Osteomyelitis Code(s): M86.9 - Osteomyelitis, unspecified Status: Acute - Plan 57 year old male with left foot superficial ulcerations, MRI (-) for OM, with BC + Nursing orders placed for daily wound care with silvadene and DSD No acute infection noted to left foot and MRI negative for OM Will follow patient will in house and re evaluate wounds weekly while in house Encourage outpatient follow up with patient as he has never been seen in office secondary to patient per him not being able to make it to the office Please discharge patient with silvadene to be placed to left foot ulcers daily Patient to follow up in office once discharged (1) Osteomyelitis Qualifiers: Osteomyelitis type: other chronic Osteomyelitis location: foot Laterality: unspecified laterality Qualified Code(s): M86.679 - Other chronic osteomyelitis , unspecified ankle and foot
[2017-10-14] MEDS ORDERED: Ibuprofen 600 MG Tablet PO ONE (21:00)
[2017-10-15] MEDS: Vancomycin Inj 1,000 MG in Sodium Chlor 0.9% Inj 250 ML IV.SIG SCH ×2 (01:13→11:24)
[2017-10-15] MEDS: Gabapentin 300 MG Capsule PO SCH ×3 (05:11→21:12)
--- NOTE | 2017-10-15 09:49 | P.PN ---
Subjective Interval history: Seen in his bedroom, no complaint by patient discussed with nurse Miss Vázquez, continue Zinc, Vitamin C and Glucerna protein shake. Physical Exam Vital signs: Vital Signs 10/14/17 12:00 10/14/17 15:06 10/14/17 15:14 Temperature 98.0 F 97.2 F L Pulse Rate 50 L 55 L Respiratory Rate 16 16 18 Blood Pressure 131/67 122/79 Pulse Oximetry 96 94 L 10/14/17 16:00 10/14/17 20:00 10/15/17 00:00 Temperature 97.1 F L 97.6 F 97.2 F L Pulse Rate 65 52 L 48 L Respiratory Rate 21 16 15 Blood Pressure 134/81 143/72 H 142/76 H Pulse Oximetry 94 L 94 L 94 L 10/15/17 04:00 10/15/17 08:00 Temperature 97.6 F 97.1 F L Pulse Rate 47 L 46 L Respiratory Rate 15 17 Blood Pressure 130/72 149/72 H Pulse Oximetry 94 L 94 L Intake & Output 10/14/17 10/15/17 10/15/17 18:59 06:59 18:59 Intake Total 580 / 580 1180 / 1180 Output Total 1000 / 1000 2100 / 2100 Balance -420 / -420 -920 / -920 Weight 63.503 kg 63.9 kg Intake: IV 100 / 100 500 / 500 Vancomycin Inj 1,000 MG In NS 500 / 500 Inj 250 ML @ 250 mls/hr IV.SIG Q18H [facility] Rx#:[id number] Rocephin Inj 2,000 MG In NS Inj 100 / 100 100 ML @ 200 mls/hr IV.SIG Q24H [facility] Rx#:[id number] Oral 480 / 480 680 / 680 Output: Urine 1000 / 1000 2100 / 2100 Other: Date of Last Bowel Movement 10/11/17 10/11/17 Weight On Admission 63.9 kg Narrative: GENERAL: Well-developed in no acute distress SKIN: Warm and dry. HEAD: Normocephalic. EYES: No scleral icterus. No injection or drainage. CARDIOVASCULAR: Regular rate and rhythm without murmurs, gallops, or rubs. RESPIRATORY: Breath sounds equal bilaterally. No accessory muscle use. GASTROINTESTINAL: Abdomen soft, non-tender, nondistended. MUSCULOSKELETAL: No cyanosis, or edema. Left foot dressed. NEUROLOGICAL: Awake and alert. No obvious cranial nerve deficits. PSYCHIATRIC: Appropriate mood and affect; insight and judgment normal. Results - Labs CBC & Chem 7: 10/14/17 06:55 10/14/17 06:55 Laboratory Results - last 24 hr 10/14/17 10/14/17 10/14/17 12:49 17:01 20:05 POC Glucose 71 156 H 149 H 10/15/17 08:06 POC Glucose 78 Microbiology 10/09/17 23:15 Blood - Peripheral Aerobic Blood Culture - Final No growth in 5 days 10/09/17 23:15 Blood - Peripheral Anaerobic Blood Culture - Final No growth in 5 days 10/09/17 23:15 Blood - Peripheral Aerobic Blood Culture - Preliminary Acinetobacter clarence cplx/haemol gram negative rods 10/09/17 23:15 Blood - Peripheral Anaerobic Blood Culture - Final No growth in 5 days Assessment and Plan - Assessment (1) Fever Code(s): R50.9 - Fever, unspecified Status: Acute (2) Osteomyelitis Code(s): M86.9 - Osteomyelitis, unspecified Status: Acute (3) Failure of outpatient treatment Code(s): Z78.9 - Other specified health status Status: Acute (4) Non compliance w medication regimen Code(s): Z91.14 - Patient's other noncompliance with medication regimen Status : Acute (5) DANILO (acute kidney injury) Code(s): N17.9 - Acute kidney failure, unspecified Status: Acute (6) History of substance abuse Code(s): Z87.898 - Personal history of other specified conditions Status: Acute (7) Depression Code(s): F32.9 - Major depressive disorder, single episode, unspecified Status : Chronic (8) Hyperlipidemia Code(s): E78.5 - Hyperlipidemia, unspecified Status: Chronic (9) COPD (chronic obstructive pulmonary disease) Code(s): J44.9 - Chronic obstructive pulmonary disease, unspecified Status: Chronic (10) Hypertension Code(s): I10 - Essential (primary) hypertension Status: Chronic (11) Diabetes Code(s): E11.9 - Type 2 diabetes mellitus without complications Status: Chronic - Plan 57-year-old male with history of left foot chronic infection positive for osteomyelitis and MRSA, status post resection of first ray, second ray and fifth ray. Failed outpatient antibiotic treatment; possible PICC infection. Presented to the emergency room with hallucinations and fever. Lactic acid 1, no WBC elevation. Patient noted hypotensive, blood pressure 80s-90s. Left Foot Cellulitis/osteomyelitis status post Left 5th ray and second toe amputations. MRI negative for Osteomyelitis. to continue Vancomycin and Rocephin, ID and Podiatry specialist following, -Probable sepsis and bacteremia secondary to Acinetobacter, Sutures removed . -New PICC line after negative repeat culture. following blood cultures. Hypertension, chronic Controlled DANILO: Cr 1.51, secondary to infection/dehydration; resolved -NS at 100/hr; fluid stopped 10/13. -Avoid nephrotoxic agents Chronic pain/Chronic opioid use/History of polysubstance abuse -Resume methadone 200 mg p.o. daily, verified with methadone clinic Type 2 diabetes, on metformin -hold metformin due to acute kidney injury Accu-Cheks before meals and at bedtime with insulin therapy -Diabetic diet COPD/Tobacco abuse: Chronic, does not appear to be in exacerbation -DuoNeb's every 4 as needed -counseled on tobacco cessation Dysphagia; possible stricture -Swallow evaluation ordered -no issues. Confirmed likely stricture and recommend follow-up with GI. Can be done as outpatient. -Daily PPI DVT prophylaxis: Heparin sq Code Status: full code. Discussed Condition With: Patient and nurse Miss Vázquez Discharge Planning: Once cleared by specialists. (1) Fever Qualifiers: Fever type: unspecified Qualified Code(s): R50.9 - Fever, unspecified (2) Osteomyelitis Qualifiers: Osteomyelitis type: other chronic Osteomyelitis location: foot Laterality: unspecified laterality Qualified Code(s): M86.679 - Other chronic osteomyelitis , unspecified ankle and foot (7) Depression Qualifiers: Depression Type: unspecified Qualified Code(s): F32.9 - Major depressive disorder, single episode, unspecified (8) Hyperlipidemia Qualifiers: Hyperlipidemia type: unspecified Qualified Code(s): E78.5 - Hyperlipidemia, unspecified (9) COPD (chronic obstructive pulmonary disease) Qualifiers: Emphysema type: unspecified (10) Hypertension Qualifiers: Hypertension type: essential hypertension Qualified Code(s): I10 - Essential (primary) hypertension (11) Diabetes Qualifiers: Diabetes mellitus type: type 2 Diabetes mellitus superintendent container terminal insulin use: without intermediate use Diabetes mellitus complication status: with other specified complication Qualified Code(s): E11.69 - Type 2 diabetes mellitus with other specified complication
[2017-10-15] MEDS: Methadone 10 MG Tablet PO SCH (11:24)
[2017-10-15] MEDS: Insulin NovoLIN Regular Correctional Sugar Inj SQ SCH ×4 (11:24→21:15)
[2017-10-15] MEDS: Heparin Central Flush 100 UNIT/ML 5 ML Vial IV.FLUSH SCH (11:26)
[2017-10-15] MEDS: Lisinopril 10 MG Tablet PO SCH (11:27)
[2017-10-15] MEDS: Senna/Docusate Sodium 8.6/50 MG Tablet PO SCH ×3 (11:27→21:13)
[2017-10-15] MEDS: Pantoprazole Sodium 20 MG DR Tablet PO SCH (11:27)
[2017-10-15] MEDS: Heparin - SQ 10,000 UNITS/ML Vial SQ SCH ×2 (11:28→21:12)
[2017-10-15] MEDS: amLODIPine 5 MG Tablet PO SCH (11:28)
[2017-10-15] MEDS: Ascorbic Acid 500 MG Tablet PO SCH (14:47)
[2017-10-16] MEDS: Vancomycin Inj 1,000 MG in Sodium Chlor 0.9% Inj 250 ML IV.SIG SCH ×2 (01:29→20:59)
[2017-10-16] MEDS: Gabapentin 300 MG Capsule PO SCH ×3 (05:43→20:59)
[2017-10-16] MEDS: Heparin - SQ 10,000 UNITS/ML Vial SQ SCH ×2 (08:53→20:58)
[2017-10-16] MEDS: amLODIPine 5 MG Tablet PO SCH (08:53)
[2017-10-16] MEDS: Lisinopril 10 MG Tablet PO SCH (08:53)
[2017-10-16] MEDS: Pantoprazole Sodium 20 MG DR Tablet PO SCH (08:53)
[2017-10-16] MEDS: Methadone 10 MG Tablet PO SCH (08:54)
[2017-10-16] MEDS: Insulin NovoLIN Regular Correctional Sugar Inj SQ SCH ×4 (08:54→20:59)
[2017-10-16] MEDS: Senna/Docusate Sodium 8.6/50 MG Tablet PO SCH ×2 (08:54→20:59)
[2017-10-16] MEDS: Heparin Central Flush 100 UNIT/ML 5 ML Vial IV.FLUSH SCH (08:55)
[2017-10-16] MEDS: Ascorbic Acid 500 MG Tablet PO SCH (09:02)
--- NOTE | 2017-10-16 10:26 | P.PN ---
Subjective Interval history: Follow-up line sepsis October 16, 2017-patient seen and examined, no acute event overnight, currently afebrile Physical Exam Vital signs: Vital Signs 10/15/17 12:00 10/15/17 16:00 10/15/17 16:25 Temperature 96.9 F L 97.1 F L 98.0 F Pulse Rate 56 L 59 L 57 L Respiratory Rate 20 18 20 Blood Pressure 163/79 H 121/65 154/73 H Pulse Oximetry 98 94 L 95 10/15/17 20:00 10/16/17 00:00 10/16/17 04:00 Temperature 98.2 F 98.2 F 98.0 F Pulse Rate 46 L 56 L 52 L Respiratory Rate 18 18 18 Blood Pressure 130/65 166/81 H 151/73 H Pulse Oximetry 91 L 96 93 L 10/16/17 08:00 Temperature 97.9 F Pulse Rate 56 L Respiratory Rate 18 Blood Pressure 135/75 Pulse Oximetry 95 Intake & Output 10/15/17 10/16/17 10/16/17 18:59 06:59 18:59 Intake Total 1070 / 1070 592 / 592 Output Total 1475 / 1475 1600 / 1600 Balance -405 / -405 -1008 / -1008 Weight 65 kg 65.7 kg Intake: IV 350 / 350 250 / 250 Vancomycin Inj 1,000 MG In NS 250 / 250 250 / 250 Inj 250 ML @ 250 mls/hr IV.SIG Q18H [facility] Rx#:[id number] Rocephin Inj 2,000 MG In NS Inj 100 / 100 100 ML @ 200 mls/hr IV.SIG Q24H [facility] Rx#:[id number] Oral 720 / 720 342 / 342 Output: Urine 1475 / 1475 1600 / 1600 Narrative: GENERAL: NAD SKIN: Warm and dry. HEAD: Normocephalic. EYES: No scleral icterus. No injection or drainage. CARDIOVASCULAR: Regular rate and rhythm without murmurs, gallops, or rubs. RESPIRATORY: Breath sounds equal bilaterally. No accessory muscle use. GASTROINTESTINAL: Abdomen soft, non-tender, nondistended. MUSCULOSKELETAL: No cyanosis, or edema. Left foot dressed. NEUROLOGICAL: Awake and alert. No obvious cranial nerve deficits. PSYCHIATRIC: Appropriate mood and affect; insight and judgment normal. Results - Labs CBC & Chem 7: 10/14/17 06:55 10/16/17 09:12 Laboratory Results - last 24 hr 10/15/17 10/15/17 10/15/17 11:55 16:51 21:09 Creatinine Estimated GFR POC Glucose 116 H 108 141 H 10/16/17 10/16/17 08:53 09:12 Creatinine 1.20 Estimated GFR 62 L POC Glucose 72 Microbiology 10/09/17 23:15 Blood - Peripheral Aerobic Blood Culture - Preliminary Acinetobacter clarence cplx/haemol gram negative rods 10/09/17 23:15 Blood - Peripheral Anaerobic Blood Culture - Final No growth in 5 days Assessment and Plan - Assessment (1) Fever Code(s): R50.9 - Fever, unspecified Status: Acute (2) Osteomyelitis Code(s): M86.9 - Osteomyelitis, unspecified Status: Acute (3) Failure of outpatient treatment Code(s): Z78.9 - Other specified health status Status: Acute (4) Non compliance w medication regimen Code(s): Z91.14 - Patient's other noncompliance with medication regimen Status : Acute (5) DANILO (acute kidney injury) Code(s): N17.9 - Acute kidney failure, unspecified Status: Acute (6) History of substance abuse Code(s): Z87.898 - Personal history of other specified conditions Status: Acute (7) Depression Code(s): F32.9 - Major depressive disorder, single episode, unspecified Status : Chronic (8) Hyperlipidemia Code(s): E78.5 - Hyperlipidemia, unspecified Status: Chronic (9) COPD (chronic obstructive pulmonary disease) Code(s): J44.9 - Chronic obstructive pulmonary disease, unspecified Status: Chronic (10) Hypertension Code(s): I10 - Essential (primary) hypertension Status: Chronic (11) Diabetes Code(s): E11.9 - Type 2 diabetes mellitus without complications Status: Chronic - Plan 57-year-old man with Left Foot Cellulitis/osteomyelitis status post Left 5th ray and second toe amputations. MRI negative for Osteomyelitis. Currently on vancomycin and Rocephin, ID and Podiatry specialist following, -Probable sepsis and bacteremia secondary to Acinetobacter, Sutures removed . -Place new PICC line if repeat blood culture remain negative Hypertension, chronic Controlled DNAILO: Cr 1.51, secondary to infection/dehydration; resolved -Resolved with IV fluid hydration Chronic pain/Chronic opioid use/History of polysubstance abuse -Continue methadone 200 mg p.o. daily Type 2 diabetes, on metformin -Resume metformin Accu-Cheks before meals and at bedtime with insulin therapy -Diabetic diet COPD/Tobacco abuse: Chronic, does not appear to be in exacerbation -DuoNeb's every 4 as needed -counseled on tobacco cessation Dysphagia; possible stricture-resolved -Swallow evaluation ordered -no issues. Confirmed likely stricture and recommend follow-up with GI. Can be done as outpatient. -Daily PPI DVT prophylaxis: Heparin sq (1) Fever Qualifiers: Fever type: unspecified Qualified Code(s): R50.9 - Fever, unspecified (2) Osteomyelitis Qualifiers: Osteomyelitis type: other chronic Osteomyelitis location: foot Laterality: unspecified laterality Qualified Code(s): M86.679 - Other chronic osteomyelitis , unspecified ankle and foot (7) Depression Qualifiers: Depression Type: unspecified Qualified Code(s): F32.9 - Major depressive disorder, single episode, unspecified (8) Hyperlipidemia Qualifiers: Hyperlipidemia type: unspecified Qualified Code(s): E78.5 - Hyperlipidemia, unspecified (9) COPD (chronic obstructive pulmonary disease) Qualifiers: Emphysema type: unspecified (10) Hypertension Qualifiers: Hypertension type: essential hypertension Qualified Code(s): I10 - Essential (primary) hypertension (11) Diabetes Qualifiers: Diabetes mellitus type: type 2 Diabetes mellitus longterm insulin use: without watermelon inspector use Diabetes mellitus complication status: with other specified complication Qualified Code(s): E11.69 - Type 2 diabetes mellitus with other specified complication
[2017-10-17] MEDS: Gabapentin 300 MG Capsule PO SCH ×3 (05:03→22:10)
[2017-10-17] MEDS: Methadone 10 MG Tablet PO SCH (09:51)
[2017-10-17] MEDS: Pantoprazole Sodium 20 MG DR Tablet PO SCH (09:52)
[2017-10-17] MEDS: Ascorbic Acid 500 MG Tablet PO SCH (09:52)
[2017-10-17] MEDS: Heparin - SQ 10,000 UNITS/ML Vial SQ SCH ×2 (09:53→20:42)
[2017-10-17] MEDS: Senna/Docusate Sodium 8.6/50 MG Tablet PO SCH ×2 (09:53→20:43)
[2017-10-17] MEDS: Insulin NovoLIN Regular Correctional Sugar Inj SQ SCH ×4 (09:53→20:43)
[2017-10-17] MEDS: amLODIPine 5 MG Tablet PO SCH (09:53)
[2017-10-17] MEDS: Lisinopril 10 MG Tablet PO SCH (09:53)
[2017-10-17] MEDS: Heparin Central Flush 100 UNIT/ML 5 ML Vial IV.FLUSH SCH (09:55)
--- NOTE | 2017-10-17 11:04 | P.PN ---
Subjective Interval history: Follow-up line sepsis October 16, 2017-patient seen and examined, no acute event overnight, currently afebrile October 17, 2017-patient seen and examined, only complains of soreness otherwise stable. Afebrile and no other issues. Physical Exam Vital signs: Vital Signs 10/16/17 12:00 10/16/17 16:00 10/16/17 20:00 Temperature 97.8 F 98.1 F 98.3 F Pulse Rate 48 L 50 L 52 L Respiratory Rate 18 18 18 Blood Pressure 108/68 115/75 128/66 Pulse Oximetry 95 95 94 L 10/17/17 00:00 10/17/17 04:00 Temperature 97.6 F 97.9 F Pulse Rate 54 L 46 L Respiratory Rate 18 Blood Pressure 138/66 143/69 H Pulse Oximetry 92 L 95 Intake & Output 10/16/17 10/17/17 10/17/17 18:59 06:59 18:59 Intake Total 1060 / 1060 730 / 730 Output Total 1000 / 1000 Balance 60 / 60 730 / 730 Intake: IV 100 / 100 250 / 250 Vancomycin Inj 1,000 MG In NS 250 / 250 Inj 250 ML @ 250 mls/hr IV.SIG Q18H [facility] Rx#:[id number] Rocephin Inj 2,000 MG In NS Inj 100 / 100 100 ML @ 200 mls/hr IV.SIG Q24H [facility] Rx#:[id number] Oral 960 / 960 480 / 480 Output: Urine 1000 / 1000 Other: # Voids 4 # Bowel Movements 2 Narrative: GENERAL: NAD SKIN: Warm and dry. HEAD: Normocephalic. EYES: No scleral icterus. No injection or drainage. CARDIOVASCULAR: Regular rate and rhythm without murmurs, gallops, or rubs. RESPIRATORY: Breath sounds equal bilaterally. No accessory muscle use. GASTROINTESTINAL: Abdomen soft, non-tender, nondistended. MUSCULOSKELETAL: No cyanosis, or edema. Left foot dressed. NEUROLOGICAL: Awake and alert. No obvious cranial nerve deficits. PSYCHIATRIC: Appropriate mood and affect; insight and judgment normal. Results - Labs CBC & Chem 7: 10/14/17 06:55 10/16/17 09:12 Laboratory Results - last 24 hr 10/16/17 10/16/17 10/16/17 13:06 13:08 17:27 POC Glucose Greater than 600 H* 212 H 82 10/16/17 10/17/17 19:43 08:11 POC Glucose 215 H 95 Microbiology 10/09/17 23:15 Blood - Peripheral Aerobic Blood Culture - Final Acinetobacter clarence cplx/haemol 10/09/17 23:15 Blood - Peripheral Anaerobic Blood Culture - Final No growth in 5 days 10/15/17 18:02 Blood - Peripheral Aerobic Blood Culture - Preliminary No growth in 1 day 10/15/17 18:02 Blood - Peripheral Anaerobic Blood Culture - Preliminary No growth in 1 day 10/15/17 18:20 Blood - Peripheral Aerobic Blood Culture - Preliminary No growth in 1 day 10/15/17 18:20 Blood - Peripheral Anaerobic Blood Culture - Preliminary No growth in 1 day Assessment and Plan - Assessment (1) Fever Code(s): R50.9 - Fever, unspecified Status: Acute (2) Osteomyelitis Code(s): M86.9 - Osteomyelitis, unspecified Status: Acute (3) Failure of outpatient treatment Code(s): Z78.9 - Other specified health status Status: Acute (4) Non compliance w medication regimen Code(s): Z91.14 - Patient's other noncompliance with medication regimen Status : Acute (5) DANILO (acute kidney injury) Code(s): N17.9 - Acute kidney failure, unspecified Status: Acute (6) History of substance abuse Code(s): Z87.898 - Personal history of other specified conditions Status: Acute (7) Depression Code(s): F32.9 - Major depressive disorder, single episode, unspecified Status : Chronic (8) Hyperlipidemia Code(s): E78.5 - Hyperlipidemia, unspecified Status: Chronic (9) COPD (chronic obstructive pulmonary disease) Code(s): J44.9 - Chronic obstructive pulmonary disease, unspecified Status: Chronic (10) Hypertension Code(s): I10 - Essential (primary) hypertension Status: Chronic (11) Diabetes Code(s): E11.9 - Type 2 diabetes mellitus without complications Status: Chronic (12) Bacteremia associated with intravascular line Code(s): T82.7XXA - Infection and inflammatory reaction due to other cardiac and vascular devices, implants and grafts, initial encounter; R78.81 - Bacteremia Status: Acute - Plan 57-year-old man with Left Foot Cellulitis/osteomyelitis status post Left 5th ray and second toe amputations. MRI negative for Osteomyelitis. Currently on vancomycin and Rocephin, ID and Podiatry specialist following, -Probable sepsis and bacteremia secondary to Acinetobacter, Sutures removed . -Place new PICC line if repeat blood culture remain negative Bacteremia associated with IV line 1#2 BC positive 10/09/17 repeat blood culture pending Hypertension, chronic Controlled DANILO: Cr 1.51, secondary to infection/dehydration; resolved -Resolved with IV fluid hydration Chronic pain/Chronic opioid use/History of polysubstance abuse -Continue methadone 200 mg p.o. daily Type 2 diabetes, on metformin -Resume metformin Accu-Cheks before meals and at bedtime with insulin therapy -Diabetic diet COPD/Tobacco abuse: Chronic, does not appear to be in exacerbation -DuoNeb's every 4 as needed -counseled on tobacco cessation Dysphagia; possible stricture-resolved -Swallow evaluation ordered -no issues. Confirmed likely stricture and recommend follow-up with GI. Can be done as outpatient. -Daily PPI DVT prophylaxis: Heparin sq (1) Fever Qualifiers: Fever type: unspecified Qualified Code(s): R50.9 - Fever, unspecified (2) Osteomyelitis Qualifiers: Osteomyelitis type: other chronic Osteomyelitis location: foot Laterality: unspecified laterality Qualified Code(s): M86.679 - Other chronic osteomyelitis , unspecified ankle and foot (7) Depression Qualifiers: Depression Type: unspecified Qualified Code(s): F32.9 - Major depressive disorder, single episode, unspecified (8) Hyperlipidemia Qualifiers: Hyperlipidemia type: unspecified Qualified Code(s): E78.5 - Hyperlipidemia, unspecified (9) COPD (chronic obstructive pulmonary disease) Qualifiers: Emphysema type: unspecified (10) Hypertension Qualifiers: Hypertension type: essential hypertension Qualified Code(s): I10 - Essential (primary) hypertension (11) Diabetes Qualifiers: Diabetes mellitus type: type 2 Diabetes mellitus penitentiary insulin use: without truck terminal manager use Diabetes mellitus complication status: with other specified complication Qualified Code(s): E11.69 - Type 2 diabetes mellitus with other specified complication
[2017-10-17] MEDS ORDERED: Pharmacy Ordered Lab Info OTHER ONE (13:45)
[2017-10-17] MEDS: Vancomycin Inj 1,000 MG in Sodium Chlor 0.9% Inj 250 ML IV.SIG SCH (14:19)
[2017-10-18 09:42] LABS: Baso % (Auto) 0.3 % (0.0-2.0); Eos # (Auto) 0.2 th/mm3 (0.0-0.4); Hematocrit 31.5 % (39.0-51.0); Hemoglobin 10.3 gm/dL (13.0-17.0); Lymph % (Auto) 33.1 % (9.0-44.0); Mean Corpuscular HGB Conc 32.7 % (32.0-36.0); Mean Corpuscular Volume 91.7 fL (80.0-100.0); Mean Platelet Volume 8.2 fL (7.0-11.0); Mono # (Auto) 0.7 th/mm3 (0.0-0.9); Neut # (Auto) 3.1 th/mm3 (1.8-7.7); Neut % (Auto) 51.6 % (16.0-70.0); Platelet Count 263 th/mm3 (150-450); Red Blood Count 3.44 mil/mm3 (4.50-5.90)
[2017-10-18] MEDS: Methadone 10 MG Tablet PO SCH (09:48)
[2017-10-18] MEDS: Senna/Docusate Sodium 8.6/50 MG Tablet PO SCH ×2 (09:49→22:44)
[2017-10-18] MEDS: Pantoprazole Sodium 20 MG DR Tablet PO SCH (09:49)
[2017-10-18] MEDS: Lisinopril 10 MG Tablet PO SCH (09:50)
[2017-10-18] MEDS: amLODIPine 5 MG Tablet PO SCH (09:50)
[2017-10-18] MEDS: Heparin - SQ 10,000 UNITS/ML Vial SQ SCH ×2 (09:50→22:44)
[2017-10-18] MEDS: Ascorbic Acid 500 MG Tablet PO SCH (09:50)
[2017-10-18] MEDS: Vancomycin Inj 1,000 MG in Sodium Chlor 0.9% Inj 250 ML IV.SIG SCH (10:00)
[2017-10-18] MEDS: Heparin Central Flush 100 UNIT/ML 5 ML Vial IV.FLUSH SCH (10:01)
[2017-10-18] MEDS: Insulin NovoLIN Regular Correctional Sugar Inj SQ SCH ×4 (10:01→22:45)
[2017-10-18 10:04] LABS: Albumin 2.8 g/dL (3.4-5.0); Anion Gap 6 meq/L (5-15); Aspartate Aminotransferase 12 U/L (15-37); Blood Urea Nitrogen 18 mg/dL (7-18); Calcium 8.7 mg/dL (8.5-10.1); Carbon Dioxide 32.6 meq/L (21.0-32.0); Chloride 102 meq/L (98-107); Glomerular Filtration Rate 75 mL/min (>89); Glucose,Random 63 mg/dL (74-106); Potassium 4.6 meq/L (3.5-5.1); Sodium 141 meq/L (136-145)
[2017-10-18 10:12] LABS: Alanine Aminotransferase 17 U/L (12-78); Alkaline Phosphatase 89 U/L (45-117); Total Protein 6.9 g/dL (6.4-8.2)
--- NOTE | 2017-10-18 10:53 | P.PN ---
Subjective Interval history: Follow-up line sepsis October 16, 2017-patient seen and examined, no acute event overnight, currently afebrile October 17, 2017-patient seen and examined, only complains of soreness otherwise stable. Afebrile and no other issues. October 18, 2017-patient seen and examined, no complaints, afebrile BP stable. Denies any chest pain Physical Exam Vital signs: Vital Signs 10/17/17 12:00 10/17/17 16:00 10/17/17 20:00 Temperature 97.8 F 97.9 F 97.7 F Pulse Rate 50 L 50 L 81 Respiratory Rate 18 18 20 Blood Pressure 132/71 107/56 L 134/76 Pulse Oximetry 95 96 93 L 10/18/17 00:00 10/18/17 04:00 10/18/17 08:00 Temperature 98.5 F 97.7 F 97.9 F Pulse Rate 50 L 50 L 69 Respiratory Rate 18 18 20 Blood Pressure 121/69 124/69 127/88 Pulse Oximetry 91 L 95 97 Intake & Output 10/17/17 10/18/17 10/18/17 18:59 06:59 18:59 Intake Total 830 / 830 480 / 480 Output Total 1200 / 1200 1400 / 1400 Balance -370 / -370 -920 / -920 Weight 65.7 kg Intake: IV 350 / 350 Vancomycin Inj 1,000 MG In NS 250 / 250 Inj 250 ML @ 250 mls/hr IV.SIG Q18H [facility] Rx#:[id number] Rocephin Inj 2,000 MG In NS Inj 100 / 100 100 ML @ 200 mls/hr IV.SIG Q24H [facility] Rx#:[id number] Oral 480 / 480 480 / 480 Output: Urine 1200 / 1200 1400 / 1400 Other: # Voids 4 Date of Last Bowel Movement 10/16/17 10/16/17 Narrative: GENERAL: NAD SKIN: Warm and dry. HEAD: Normocephalic. EYES: No scleral icterus. No injection or drainage. CARDIOVASCULAR: Regular rate and rhythm without murmurs, gallops, or rubs. RESPIRATORY: Breath sounds equal bilaterally. No accessory muscle use. GASTROINTESTINAL: Abdomen soft, non-tender, nondistended. MUSCULOSKELETAL: No cyanosis, or edema. Left foot dressed. NEUROLOGICAL: Awake and alert. No obvious cranial nerve deficits. PSYCHIATRIC: Appropriate mood and affect; insight and judgment normal. Results - Labs CBC & Chem 7: 10/18/17 08:44 10/18/17 08:44 Laboratory Results - last 24 hr 10/17/17 10/17/17 10/17/17 12:09 13:30 17:30 WBC RBC Hgb Hct MCV MCH MCHC RDW Plt Count MPV Neut % (Auto) Lymph % (Auto) [place] % (Auto) Eos % (Auto) Baso % (Auto) Neut # (Auto) Lymph # (Auto) [place] # (Auto) Eos # (Auto) Baso # (Auto) WBC Differential Differential Comment Sodium Potassium Chloride Carbon Dioxide Anion Gap BUN Creatinine Estimated GFR POC Glucose 120 H 122 H Random Glucose Calcium Total Bilirubin AST ALT Alkaline Phosphatase Total Protein Albumin Vancomycin Trough 17.7 H 10/17/17 10/18/17 10/18/17 19:27 08:42 08:44 WBC 6.0 RBC 3.44 L Hgb 10.3 L Hct 31.5 L MCV 91.7 MCH 30.0 MCHC 32.7 RDW 16.0 Plt Count 263 D MPV 8.2 Neut % (Auto) 51.6 Lymph % (Auto) 33.1 [place] % (Auto) 11.0 H Eos % (Auto) 4.0 Baso % (Auto) 0.3 Neut # (Auto) 3.1 Lymph # (Auto) 2.0 [place] # (Auto) 0.7 Eos # (Auto) 0.2 Baso # (Auto) 0.0 WBC Differential . Differential Comment Auto diff final Sodium Potassium Chloride Carbon Dioxide Anion Gap BUN Creatinine Estimated GFR POC Glucose 184 H 74 Random Glucose Calcium Total Bilirubin AST ALT Alkaline Phosphatase Total Protein Albumin Vancomycin Trough 10/18/17 08:44 WBC RBC Hgb Hct MCV MCH MCHC RDW Plt Count MPV Neut % (Auto) Lymph % (Auto) [place] % (Auto) Eos % (Auto) Baso % (Auto) Neut # (Auto) Lymph # (Auto) [place] # (Auto) Eos # (Auto) Baso # (Auto) WBC Differential Differential Comment Sodium 141 Potassium 4.6 Chloride 102 Carbon Dioxide 32.6 H Anion Gap 6 BUN 18 Creatinine 1.02 Estimated GFR 75 L POC Glucose Random Glucose 63 L Calcium 8.7 Total Bilirubin 0.2 AST 12 L ALT 17 Alkaline Phosphatase 89 Total Protein 6.9 D Albumin 2.8 L Vancomycin Trough Microbiology 08/17/18 18:02 Blood - Peripheral Aerobic Blood Culture - Preliminary No growth in 2 days 10/15/17 18:02 Blood - Peripheral Anaerobic Blood Culture - Preliminary No growth in 2 days 10/15/17 18:20 Blood - Peripheral Aerobic Blood Culture - Preliminary No growth in 2 days 10/15/17 18:20 Blood - Peripheral Anaerobic Blood Culture - Preliminary No growth in 2 days Assessment and Plan - Assessment (1) Fever Code(s): R50.9 - Fever, unspecified Status: Acute (2) Osteomyelitis Code(s): M86.9 - Osteomyelitis, unspecified Status: Acute (3) Failure of outpatient treatment Code(s): Z78.9 - Other specified health status Status: Acute (4) Non compliance w medication regimen Code(s): Z91.14 - Patient's other noncompliance with medication regimen Status : Acute (5) DANILO (acute kidney injury) Code(s): N17.9 - Acute kidney failure, unspecified Status: Acute (6) History of substance abuse Code(s): Z87.898 - Personal history of other specified conditions Status: Acute (7) Depression Code(s): F32.9 - Major depressive disorder, single episode, unspecified Status : Chronic (8) Hyperlipidemia Code(s): E78.5 - Hyperlipidemia, unspecified Status: Chronic (9) COPD (chronic obstructive pulmonary disease) Code(s): J44.9 - Chronic obstructive pulmonary disease, unspecified Status: Chronic (10) Hypertension Code(s): I10 - Essential (primary) hypertension Status: Chronic (11) Diabetes Code(s): E11.9 - Type 2 diabetes mellitus without complications Status: Chronic (12) Bacteremia associated with intravascular line Code(s): T82.7XXA - Infection and inflammatory reaction due to other cardiac and vascular devices, implants and grafts, initial encounter; R78.81 - Bacteremia Status: Acute - Plan 57-year-old man with Left Foot Cellulitis/osteomyelitis status post Left 5th ray and second toe amputations. MRI negative for Osteomyelitis. Currently on vancomycin and Rocephin, ID and Podiatry specialist following, -Probable sepsis and bacteremia secondary to Acinetobacter, Sutures removed . -Place new PICC line if repeat blood culture remain negative Bacteremia associated with IV line 1#2 BC positive 10/09/17 repeat blood culture NTD x 3 days Hypertension, chronic Controlled DANILO: Cr 1.51, secondary to infection/dehydration; resolved -Resolved with IV fluid hydration Chronic pain/Chronic opioid use/History of polysubstance abuse -Continue methadone 200 mg p.o. daily Type 2 diabetes, on metformin -continue metformin Accu-Cheks before meals and at bedtime with insulin therapy -Diabetic diet COPD/Tobacco abuse: Chronic, does not appear to be in exacerbation -DuoNeb's every 4 as needed -counseled on tobacco cessation Dysphagia; possible stricture-resolved -Swallow evaluation ordered -no issues. Confirmed likely stricture and recommend follow-up with GI. Can be done as outpatient. -Daily PPI DVT prophylaxis: Heparin sq (1) Fever Qualifiers: Fever type: unspecified Qualified Code(s): R50.9 - Fever, unspecified (2) Osteomyelitis Qualifiers: Osteomyelitis type: other chronic Osteomyelitis location: foot Laterality: unspecified laterality Qualified Code(s): M86.679 - Other chronic osteomyelitis , unspecified ankle and foot (7) Depression Qualifiers: Depression Type: unspecified Qualified Code(s): F32.9 - Major depressive disorder, single episode, unspecified (8) Hyperlipidemia Qualifiers: Hyperlipidemia type: unspecified Qualified Code(s): E78.5 - Hyperlipidemia, unspecified (9) COPD (chronic obstructive pulmonary disease) Qualifiers: Emphysema type: unspecified (10) Hypertension Qualifiers: Hypertension type: essential hypertension Qualified Code(s): I10 - Essential (primary) hypertension (11) Diabetes Qualifiers: Diabetes mellitus type: type 2 Diabetes mellitus detention insulin use: without technician terminal and repeater use Diabetes mellitus complication status: with other specified complication Qualified Code(s): E11.69 - Type 2 diabetes mellitus with other specified complication
[2017-10-18] MEDS: Gabapentin 300 MG Capsule PO SCH ×3 (14:19→22:44)
--- NOTE | 2017-10-18 18:53 | P.PNID ---
Subjective Remarks: pt is growing Acinetobacter in 1/4 bottle and is growing a 2nd gram neg: dw microlab afebrile PICC removed repeat cls is negative MRI not cw osteo Antibiotics: CFTX vancomycin Allergies/Adverse Reactions: Allergies codeine Adverse Reaction (Severe, Verified 10/09/17 21:54) NAUSEA Objective Vital Signs 10/17/17 20:00 10/18/17 00:00 10/18/17 04:00 Temperature 97.7 F 98.5 F 97.7 F Pulse Rate 81 50 L 50 L Respiratory Rate 20 18 18 Blood Pressure 134/76 121/69 124/69 Pulse Oximetry 93 L 91 L 95 10/18/17 08:00 10/18/17 12:00 Temperature 97.9 F 98.2 F Pulse Rate 69 54 L Respiratory Rate 20 20 Blood Pressure 127/88 128/68 Pulse Oximetry 97 96 Intake & Output 10/17/17 10/18/17 10/18/17 18:59 06:59 18:59 Intake Total 830 / 830 480 / 480 450 / 450 Output Total 1200 / 1200 1400 / 1400 Balance -370 / -370 -920 / -920 450 / 450 Weight 65.7 kg Intake: IV 350 / 350 350 / 350 Vancomycin Inj 1,000 MG In NS 250 / 250 250 / 250 Inj 250 ML @ 250 mls/hr IV.SIG Q18H [facility] Rx#:[id number] Rocephin Inj 2,000 MG In NS Inj 100 / 100 100 / 100 100 ML @ 200 mls/hr IV.SIG Q24H [facility] Rx#:[id number] Oral 480 / 480 480 / 480 Other 100 / 100 Output: Urine 1200 / 1200 1400 / 1400 Other: # Voids 4 Date of Last Bowel Movement 10/16/17 10/16/17 10/16/17 10/15/17 18:02 Blood - Peripheral Aerobic Blood Culture - Preliminary No growth in 3 days 10/15/17 18:02 Blood - Peripheral Anaerobic Blood Culture - Preliminary No growth in 3 days 10/15/17 18:20 Blood - Peripheral Aerobic Blood Culture - Preliminary No growth in 3 days 10/15/17 18:20 Blood - Peripheral Anaerobic Blood Culture - Preliminary No growth in 3 days 10/09/17 23:15 Blood - Peripheral Aerobic Blood Culture - Final Acinetobacter clarence cplx/haemol 08/11/18 23:15 Blood - Peripheral Anaerobic Blood Culture - Final No growth in 5 days Lab - Hematology Results 10/18/17 08:44 WBC 6.0 RBC 3.44 L Hgb 10.3 L Hct 31.5 L MCV 91.7 MCH 30.0 MCHC 32.7 RDW 16.0 Plt Count 263 D MPV 8.2 Neut % (Auto) 51.6 Lymph % (Auto) 33.1 [place] % (Auto) 11.0 H Eos % (Auto) 4.0 Baso % (Auto) 0.3 Neut # (Auto) 3.1 Lymph # (Auto) 2.0 [place] # (Auto) 0.7 Eos # (Auto) 0.2 Baso # (Auto) 0.0 WBC Differential . Differential Comment Auto diff final Lab - Chemistry Results 10/16/17 10/17/17 10/17/17 19:43 08:11 12:09 Sodium Potassium Chloride Carbon Dioxide Anion Gap BUN Creatinine Estimated GFR POC Glucose 215 H 95 120 H Random Glucose Calcium Total Bilirubin AST ALT Alkaline Phosphatase Total Protein Albumin 10/17/17 10/17/17 10/18/17 17:30 19:27 08:42 Sodium Potassium Chloride Carbon Dioxide Anion Gap BUN Creatinine Estimated GFR POC Glucose 122 H 184 H 74 Random Glucose Calcium Total Bilirubin AST ALT Alkaline Phosphatase Total Protein Albumin 10/18/17 10/18/17 10/18/17 08:44 12:20 17:34 Sodium 141 Potassium 4.6 Chloride 102 Carbon Dioxide 32.6 H Anion Gap 6 BUN 18 Creatinine 1.02 Estimated GFR 75 L POC Glucose 106 77 Random Glucose 63 L Calcium 8.7 Total Bilirubin 0.2 AST 12 L ALT 17 Alkaline Phosphatase 89 Total Protein 6.9 D Albumin 2.8 L Imaging: ITS Impressions Chest X-Ray 10/09/17 23:07 CONCLUSION: 1. No acute cardiopulmonary abnormality is identified. 2. Right upper extremity PICC distal tip overlies the right axilla, likely in the right axillary vein. Foot MRI 10/12/17 00:00 CONCLUSION: 1. Status post recent amputation of the second digit down to the level of the metatarsal neck with edema edema in this area which likely is postoperative. 2. Stable residual edema in the residual fifth metatarsal base which is nonspecific. 3. Mild residual marrow edema is an noted in the residual distal portion of the first metatarsal at the amputation site. 4. The first metatarsal tarsal joint is intact with no marrow edema or destructive change. Foot X-Ray 10/12/17 00:00 CONCLUSION: 1. Stable postsurgical changes with transmetatarsal amputations of digits 1, 2 and 5. 2. Increasing demineralization along the ostomy line of the second metatarsal and cortical irregularity of the first tarsometatarsal articulation. Findings could represent developing osteomyelitis in both locations. 3. The stump soft tissues appear to be edematous. Physical Exam: GENERAL: NAD SKIN: Warm and dry. HEAD: Normocephalic. EYES: No scleral icterus. No injection or drainage. NECK: Supple, trachea midline. No JVD or lymphadenopathy. CARDIOVASCULAR: Regular rate and rhythm without murmurs, gallops, or rubs. RESPIRATORY: Breath sounds equal bilaterally. No accessory muscle use. GASTROINTESTINAL: Abdomen soft, non-tender, nondistended. MUSCULOSKELETAL: No cyanosis, or edema. L foot with dressing in place BACK: Nontender without obvious deformity. No CVA tenderness. Assessment and Plan - Plan DFI, osteo L foot sp 5 th ray and 2nd toe amputations: MRSA, Enterococcus and Acinetobacter MRI negative for osteo Sepsis 2/2 Acinetobacter ? from foot or PICC infection no 2nd GNB from blood clx concern that Acinetobacter is from the foot cont vancomycin x 6 weeks total cont Rocephin x 6 weeks total OK for PICC after negative repeat clx doc'michael x 72 hrs
[2017-10-18] MEDS ORDERED: Vancomycin Consult Pharmacy OTHER PRN (18:59)
--- NOTE | 2017-10-18 19:05 | P.DCO ---
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 [] May leave port accessed during therapy. [] May leave peripheral site accessed for duration of therapy. [x] If patient has SOB or respiratory distress, check oxygen saturation. If less than 90% or clinical signs of respiratory distress, administer oxygen at 2 L/min. via nasal cannula and notify physician. [x] Anaphylaxis/Reaction orders: * Stop infusion. * Keep IV line open with saline flush. * Notify physician. * Monitor vital signs every 15 minutes until symptoms resolve. * Check Oxygen saturation; Oxygen at 2 L/min. via nasal cannula if less than 90% or clinical signs of respiratory distress. * Administer diphenhydramine (Benadryl) 25 mg IV STAT, (unless patient has received as pre-med). May repeat once, if necessary. * Solu-Cortef 250 mg IVP over 30-60 seconds, use 100 mg vials for each dissolution. * Epinephrine (1mg/1 ml) 0.3 mg subcutaneously or IVP now with any signs of respiratory distress. * Check with physician for new additional pre-med orders if patient is re- challenged or re-treated. [x] May remove PICC line when treatment complete, after confirming with Physician. [x] If the patient is admitted to the hospital, the ED, or transferred via [facility] , complete transfer form including medication reconciliation order sheet. Weekly Labs: CBC w/diff, CMP, SED Rate, Vancomycin Trough Allergies codeine Adverse Reaction (Severe, Verified 10/09/17 21:54) NAUSEA (1) Osteomyelitis Qualifiers: Osteomyelitis type: other chronic Osteomyelitis location: foot Laterality: unspecified laterality Qualified Code(s): M86.679 - Other chronic osteomyelitis , unspecified ankle and foot
[2017-10-19] MEDS: Gabapentin 300 MG Capsule PO SCH ×3 (06:08→22:44)
[2017-10-19] MEDS: Vancomycin Inj 800 MG in Sodium Chlor 0.9% Inj 250 ML IV.SIG SCH ×2 (06:09→17:04)
[2017-10-19] MEDS: Heparin Central Flush 100 UNIT/ML 5 ML Vial IV.FLUSH SCH (08:04)
[2017-10-19] MEDS: Heparin - SQ 10,000 UNITS/ML Vial SQ SCH ×2 (08:35→22:43)
[2017-10-19] MEDS: Methadone 10 MG Tablet PO SCH (08:35)
[2017-10-19] MEDS: Insulin NovoLIN Regular Correctional Sugar Inj SQ SCH ×4 (08:35→22:44)
[2017-10-19] MEDS: Lisinopril 10 MG Tablet PO SCH (08:36)
[2017-10-19] MEDS: Pantoprazole Sodium 20 MG DR Tablet PO SCH (08:36)
[2017-10-19] MEDS: Senna/Docusate Sodium 8.6/50 MG Tablet PO SCH ×2 (08:36→22:44)
[2017-10-19] MEDS: amLODIPine 5 MG Tablet PO SCH (08:36)
[2017-10-19] MEDS: Ascorbic Acid 500 MG Tablet PO SCH (08:37)
[2017-10-19] MEDS ORDERED: Heparin Central Flush 100 UNIT/ML 5 ML Vial IV.FLUSH PRN ×2 (09:46→09:51)
--- NOTE | 2017-10-19 15:02 | P.PN ---
Subjective Interval history: chronic pain, no fever, no foot pain, no cp, no sob, no diarrhea, eating okay. PICC is out, will be getting new one today. Physical Exam Vital signs: Vital Signs 10/18/17 16:00 10/18/17 20:00 10/19/17 00:00 Temperature 98.2 F 98.1 F 97.7 F Pulse Rate 57 L 60 59 L Respiratory Rate 20 18 18 Blood Pressure 106/74 132/77 104/60 Pulse Oximetry 95 97 95 10/19/17 04:00 10/19/17 08:00 Temperature 97.8 F 97.6 F Pulse Rate 47 L 53 L Respiratory Rate 18 20 Blood Pressure 106/69 141/79 H Pulse Oximetry 96 98 Intake & Output 10/18/17 10/19/17 10/19/17 18:59 06:59 18:59 Intake Total 1410 / 1410 730 / 730 350 / 350 Output Total 1225 / 1225 1950 / 1950 Balance 185 / 185 -1220 / -1220 350 / 350 Weight 65 kg Intake: IV 350 / 350 350 / 350 Vancomycin Inj 800 MG In NS Inj 250 / 250 250 / 250 250 ML @ 250 mls/hr IV.SIG Q12H [facility] Rx#:[id number] Rocephin Inj 2,000 MG In NS Inj 100 / 100 100 / 100 100 ML @ 200 mls/hr IV.SIG Q24H [facility] Rx#:[id number] Oral 960 / 960 480 / 480 Other 100 / 100 250 / 250 Output: Urine 1225 / 1225 1950 / 1950 Other: Date of Last Bowel Movement 10/16/17 # Bowel Movements 1 0 Narrative: GENERAL: 57 year old male, appears older than stated age. SKIN: Warm and dry. HEAD: Normocephalic. EYES: No scleral icterus. No injection or drainage. CARDIOVASCULAR: Regular rate and rhythm without murmurs, gallops, or rubs. RESPIRATORY: Breath sounds equal bilaterally. No accessory muscle use. GASTROINTESTINAL: Abdomen soft, non-tender, nondistended. MUSCULOSKELETAL: No cyanosis, or edema. Left foot with dressing D/I Pedal pulses 1+ bilate NEUROLOGICAL: Awake and alert. No obvious cranial nerve deficits. PSYCHIATRIC: Appropriate mood and affect; insight and judgment normal. Results - Labs CBC & Chem 7: 10/18/17 08:44 10/18/17 08:44 Laboratory Results - last 24 hr 10/18/17 10/18/17 10/19/17 17:34 20:40 05:58 POC Glucose 77 116 H Random Vancomycin 14.3 10/19/17 10/19/17 08:35 13:08 POC Glucose 89 130 H Random Vancomycin Microbiology 10/15/17 18:02 Blood - Peripheral Aerobic Blood Culture - Preliminary No growth in 4 days 10/15/17 18:02 Blood - Peripheral Anaerobic Blood Culture - Preliminary No growth in 4 days 10/15/17 18:20 Blood - Peripheral Aerobic Blood Culture - Preliminary No growth in 4 days 10/15/17 18:20 Blood - Peripheral Anaerobic Blood Culture - Preliminary No growth in 4 days Assessment and Plan - Assessment (1) Fever Code(s): R50.9 - Fever, unspecified Status: Acute (2) Osteomyelitis Code(s): M86.9 - Osteomyelitis, unspecified Status: Acute (3) Failure of outpatient treatment Code(s): Z78.9 - Other specified health status Status: Acute (4) Non compliance w medication regimen Code(s): Z91.14 - Patient's other noncompliance with medication regimen Status : Acute (5) DANILO (acute kidney injury) Code(s): N17.9 - Acute kidney failure, unspecified Status: Acute (6) History of substance abuse Code(s): Z87.898 - Personal history of other specified conditions Status: Acute (7) Depression Code(s): F32.9 - Major depressive disorder, single episode, unspecified Status : Chronic (8) Hyperlipidemia Code(s): E78.5 - Hyperlipidemia, unspecified Status: Chronic (9) COPD (chronic obstructive pulmonary disease) Code(s): J44.9 - Chronic obstructive pulmonary disease, unspecified Status: Chronic (10) Hypertension Code(s): I10 - Essential (primary) hypertension Status: Chronic (11) Diabetes Code(s): E11.9 - Type 2 diabetes mellitus without complications Status: Chronic (12) Bacteremia associated with intravascular line Code(s): T82.7XXA - Infection and inflammatory reaction due to other cardiac and vascular devices, implants and grafts, initial encounter; R78.81 - Bacteremia Status: Acute - Plan 57-year-old male with history of left foot chronic infection positive for osteomyelitis and MRSA, status post resection of first ray, second ray and fifth ray. Noncompliant with medication treatment. Has a PICC line in place and is on vancomycin. Has missed four doses. Presented to the emergency room with hallucinations and fever. Lactic acid 1, no WBC elevation. Patient noted hypotensive, blood pressure 80s-90s. Left Foot Cellulitis/osteomyelitis status post Left 5th ray and second toe amputations. MRI negative for Osteomyelitis. Currently on vancomycin and Rocephin, ID and Podiatry specialist following, -Probable sepsis and bacteremia secondary to Acinetobacter, Sutures removed . -BC negative, ok for PICC. To be placed today Bacteremia associated with IV line 1#2 BC positive 10/09/17 repeat blood culture NTD x 3 days Hypertension, chronic continue home meds DANILO: Cr 1.51, secondary to infection/dehydration; resolved -Resolved with IV fluid hydration Chronic pain/Chronic opioid use/History of polysubstance abuse -Continue methadone 200 mg p.o. daily Type 2 diabetes, on metformin -continue metformin Accu-Cheks before meals and at bedtime with insulin therapy -Diabetic diet COPD/Tobacco abuse: Chronic, does not appear to be in exacerbation -DuoNeb's every 4 as needed -counseled on tobacco cessation Dysphagia; possible stricture-resolved -Swallow evaluation ordered -no issues. Confirmed likely stricture and recommend follow-up with GI. Can be done as outpatient. -Daily PPI Non compliance discussed need for complain, verbalizes understanding. DVT prophylaxis: Heparin sq CM for dc planning, poss dc tomorrow. D/W pt, RN, CM (1) Fever Qualifiers: Fever type: unspecified Qualified Code(s): R50.9 - Fever, unspecified (2) Osteomyelitis Qualifiers: Osteomyelitis type: other chronic Osteomyelitis location: foot Laterality: unspecified laterality Qualified Code(s): M86.679 - Other chronic osteomyelitis , unspecified ankle and foot (7) Depression Qualifiers: Depression Type: unspecified Qualified Code(s): F32.9 - Major depressive disorder, single episode, unspecified (8) Hyperlipidemia Qualifiers: Hyperlipidemia type: unspecified Qualified Code(s): E78.5 - Hyperlipidemia, unspecified (9) COPD (chronic obstructive pulmonary disease) Qualifiers: Emphysema type: unspecified (10) Hypertension Qualifiers: Hypertension type: essential hypertension Qualified Code(s): I10 - Essential (primary) hypertension (11) Diabetes Qualifiers: Diabetes mellitus type: type 2 Diabetes mellitus chcf insulin use: without chcf use Diabetes mellitus complication status: with other specified complication Qualified Code(s): E11.69 - Type 2 diabetes mellitus with other specified complication
[2017-10-20] MEDS: Gabapentin 300 MG Capsule PO SCH (06:17)
[2017-10-20 06:42] VITALS: TEMP 97.9
[2017-10-20] MEDS: Vancomycin Inj 800 MG in Sodium Chlor 0.9% Inj 250 ML IV.SIG SCH (07:26)
[2017-10-20 08:59] VITALS: BP 102/52; PULSE 46; RESP 16; O2SAT 97
[2017-10-20] MEDS ORDERED: Heparin Central Flush 100 UNIT/ML 5 ML Vial IV.FLUSH SCH ×2 (09:00)
[2017-10-20] MEDS: amLODIPine 5 MG Tablet PO SCH (09:30)
[2017-10-20] MEDS: Lisinopril 10 MG Tablet PO SCH (09:30)
[2017-10-20] MEDS: Senna/Docusate Sodium 8.6/50 MG Tablet PO SCH (09:30)
[2017-10-20] MEDS: Methadone 10 MG Tablet PO SCH (09:31)
[2017-10-20] MEDS: Heparin - SQ 10,000 UNITS/ML Vial SQ SCH (09:33)
[2017-10-20] MEDS: Heparin Central Flush 100 UNIT/ML 5 ML Vial IV.FLUSH SCH (09:33)
[2017-10-20] MEDS: Ascorbic Acid 500 MG Tablet PO SCH (09:34)
[2017-10-20] MEDS: Pantoprazole Sodium 20 MG DR Tablet PO SCH (09:34)
[2017-10-20] MEDS: Insulin NovoLIN Regular Correctional Sugar Inj SQ SCH ×2 (09:35→12:44)
--- NOTE | 2017-10-20 10:28 | P.PN ---
Subjective Interval history: Denies any chest pain, no shortness of breath, no fever. Has chronic pain, well controlled. Requesting prescription for gabapentin. Denies any diarrhea, no nausea, no vomiting. Tolerating diet well. Discussed the need for compliance with finishing antibiotics and following up with podiatry. Patient also counseled about continued drug use, drug screen was positive for cocaine. Physical Exam Vital signs: Vital Signs 10/19/17 12:00 10/19/17 16:00 10/19/17 20:00 Temperature 98.2 F 97.9 F 97.7 F Pulse Rate 74 52 L 52 L Respiratory Rate 20 20 18 Blood Pressure 100/62 90/49 L 101/54 L Pulse Oximetry 96 98 96 10/20/17 00:00 10/20/17 04:00 10/20/17 08:00 Temperature 97.8 F 97.9 F 97.9 F Pulse Rate 50 L 50 L 46 L Respiratory Rate 18 18 16 Blood Pressure 99/56 L 101/58 L 102/52 L Pulse Oximetry 98 98 97 Intake & Output 10/19/17 10/20/17 10/20/17 18:59 06:59 18:59 Intake Total 1320 / 1320 240 / 240 Output Total 1225 / 1225 2200 / 2200 Balance 95 / 95 -1960 / -1960 Weight 65.7 kg 65.9 kg Intake: IV 600 / 600 Vancomycin Inj 800 MG In NS Inj 500 / 500 250 ML @ 250 mls/hr IV.SIG Q12H [facility] Rx#:[id number] Rocephin Inj 2,000 MG In NS Inj 100 / 100 100 ML @ 200 mls/hr IV.SIG Q24H [facility]ON Rx#:[id number] Oral 720 / 720 240 / 240 Output: Urine 1225 / 1225 2200 / 2200 Other: # Bowel Movements 1 0 Narrative: GENERAL: 57 year old male, appears older than stated age. SKIN: Warm and dry. HEAD: Normocephalic. EYES: No scleral icterus. No injection or drainage. CARDIOVASCULAR: Regular rate and rhythm without murmurs, gallops, or rubs. RESPIRATORY: Breath sounds equal bilaterally. No accessory muscle use. GASTROINTESTINAL: Abdomen soft, non-tender, nondistended. MUSCULOSKELETAL: No cyanosis, or edema. Left foot with dressing D/I Pedal pulses 1+ bilat NEUROLOGICAL: Awake and alert. No obvious cranial nerve deficits. PSYCHIATRIC: Appropriate mood and affect; insight and judgment normal. Results - Labs CBC & Chem 7: 10/18/17 08:44 10/20/17 06:59 Laboratory Results - last 24 hr 10/19/17 10/19/17 10/19/17 13:08 17:02 20:14 Creatinine Estimated GFR POC Glucose 130 H 97 145 H 10/20/17 10/20/17 06:59 07:48 Creatinine 1.04 Estimated GFR 73 L POC Glucose 83 Microbiology 10/15/17 18:02 Blood - Peripheral Aerobic Blood Culture - Preliminary No growth in 4 days 10/15/17 18:02 Blood - Peripheral Anaerobic Blood Culture - Preliminary No growth in 4 days 10/15/17 18:20 Blood - Peripheral Aerobic Blood Culture - Preliminary No growth in 4 days 10/15/17 18:20 Blood - Peripheral Anaerobic Blood Culture - Preliminary No growth in 4 days Assessment and Plan - Assessment (1) Fever Code(s): R50.9 - Fever, unspecified Status: Acute (2) Osteomyelitis Code(s): M86.9 - Osteomyelitis, unspecified Status: Acute (3) Failure of outpatient treatment Code(s): Z78.9 - Other specified health status Status: Acute (4) Non compliance w medication regimen Code(s): Z91.14 - Patient's other noncompliance with medication regimen Status : Acute (5) DANILO (acute kidney injury) Code(s): N17.9 - Acute kidney failure, unspecified Status: Acute (6) History of substance abuse Code(s): Z87.898 - Personal history of other specified conditions Status: Acute (7) Depression Code(s): F32.9 - Major depressive disorder, single episode, unspecified Status : Chronic (8) Hyperlipidemia Code(s): E78.5 - Hyperlipidemia, unspecified Status: Chronic (9) COPD (chronic obstructive pulmonary disease) Code(s): J44.9 - Chronic obstructive pulmonary disease, unspecified Status: Chronic (10) Hypertension Code(s): I10 - Essential (primary) hypertension Status: Chronic (11) Diabetes Code(s): E11.9 - Type 2 diabetes mellitus without complications Status: Chronic (12) Bacteremia associated with intravascular line Code(s): T82.7XXA - Infection and inflammatory reaction due to other cardiac and vascular devices, implants and grafts, initial encounter; R78.81 - Bacteremia Status: Acute - Plan 57-year-old male with history of left foot chronic infection positive for osteomyelitis and MRSA, status post resection of first ray, second ray and fifth ray. Noncompliant with medication treatment. Has a PICC line in place and is on vancomycin. Has missed four doses. Presented to the emergency room with hallucinations and fever. Lactic acid 1, no WBC elevation. Patient noted hypotensive, blood pressure 80s-90s. Left Foot Cellulitis/osteomyelitis status post Left 5th ray and second toe amputations. MRI negative for Osteomyelitis. Currently on vancomycin and Rocephin, ID and Podiatry specialist following, -Probable sepsis and bacteremia secondary to Acinetobacter, Sutures removed . -BC negative, ok for PICC. PICC place a 2017 -Cleared per infectious disease for DC Bacteremia associated with IV line 1#2 BC positive 10/09/17 repeat blood culture NTD x 3 days Hypertension, chronic continue home meds, decrease home dosage of lisinopril to 5 mg p.o. daily. DANILO: Cr 1.51, secondary to infection/dehydration; resolved -Resolved with IV fluid hydration Chronic pain/Chronic opioid use/History of polysubstance abuse -Continue methadone 200 mg p.o. daily Type 2 diabetes, on metformin -continue metformin Accu-Cheks before meals and at bedtime with insulin therapy -Diabetic diet COPD/Tobacco abuse: Chronic, does not appear to be in exacerbation -DuoNeb's every 4 as needed -counseled on tobacco cessation Dysphagia; possible stricture-resolved -Swallow evaluation ordered -no issues. Confirmed likely stricture and recommend follow-up with GI. Can be done as outpatient. -Daily PPI Non compliance Substance abuse -discussed need for complain, verbalizes understanding. -Counseled about continued drug use DVT prophylaxis: Heparin sq Stable for dc home CM for dc planning, patient is to have antibiotic therapy completed at infusion center. Arrangements have been made. Patient to follow-up at [facility] as well as Dr. Earl. Continue with wound care as instructed RN to provide supplies including Silvadene. D/W pt, RN, CM (1) Fever Qualifiers: Fever type: unspecified Qualified Code(s): R50.9 - Fever, unspecified (2) Osteomyelitis Qualifiers: Osteomyelitis type: other chronic Osteomyelitis location: foot Laterality: unspecified laterality Qualified Code(s): M86.679 - Other chronic osteomyelitis , unspecified ankle and foot (7) Depression Qualifiers: Depression Type: unspecified Qualified Code(s): F32.9 - Major depressive disorder, single episode, unspecified (8) Hyperlipidemia Qualifiers: Hyperlipidemia type: unspecified Qualified Code(s): E78.5 - Hyperlipidemia, unspecified (9) COPD (chronic obstructive pulmonary disease) Qualifiers: Emphysema type: unspecified (10) Hypertension Qualifiers: Hypertension type: essential hypertension Qualified Code(s): I10 - Essential (primary) hypertension (11) Diabetes Qualifiers: Diabetes mellitus type: type 2 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
[2017-10-20] MEDS ORDERED: Pharmacy Ordered Lab Info OTHER ONE (17:45)
--- NOTE | 2017-10-20 17:53 | P.DS ---
Date of admission: 10/10/17 11:01 Primary care physician: UNKNOWN Attending physician on discharge: Anuj Schroeder Anticipated date of discharge: 10/20/17 Brief History from admission: Mr. Alva is a 57-year-old male who is homeless, has significant past medical history of anxiety, depression, hep C, cirrhosis, prior polysubstance abuse on methadone, COPD, diabetes, CHF. Patient has a history of left foot ulcer infection that subsequently led to osteomyelitis. He has undergone multiple surgeries, the most recent one August 29, 2017 where he had a left foot fifth ray and left foot second digit resection. He was discharged with PICC line with outpatient vancomycin. According to patient, he has missed approximately 4 treatments, did have his antibiotic yesterday. He presented to the emergency room confused and febrile. There is no emergency room report, this is obtained from the patient who is now more oriented and awake. During evaluation emergency room, he was noted with fever of 103. Patient states he is homeless and lives in a tent. Indicates that his son found him confused and hallucinating and brought him to the hospital. Denies any drainage from the wound, no redness. Still has sutures in place, indicates he has not been able to make an appointment with gin inspector Dr. David. Has chronic cough, COPD and continues to smoke. Occasional chest discomfort with coughing and shortness of breath, no sputum, no nausea, no vomiting, diarrhea. Patient states he has not been taking his blood pressure medications as he was told to stop them because of low blood pressure. Patient was evaluated in the emergency room, CBC remarkable for hemoglobin 9, hematocrit 26.1. BMP remarkable for creatinine 1.41. Patient was noted febrile, temperature up to 103.1, blood pressure was initially 91/52 and has trended down to 86/54, heart rate 50s-70s. Cultures were obtained, patient was started on vancomycin. Chest x-ray did not reveal any acute findings. Urinalysis with trace leukocyte esterase, WBC less than 1. Patient adamantly denies injecting any substances through his PICC line. Indicates that he is weaning himself off methadone and goes to the clinic regularly. Patient was fluid resuscitated, he received 2 L of fluid and is currently in normal saline at 100. Patient is now evaluated, he is awake alert and oriented. He has complaints of chronic hip pain and is requesting his methadone which was verified with methadone clinic. Patient was admitted for further evaluation and treatment. DS: Diagnosis - Discharge Diagnosis (1) Fever Status: Acute (2) Osteomyelitis Status: Acute (3) Failure of outpatient treatment Status: Acute (4) Non compliance w medication regimen Status: Acute (5) DANILO (acute kidney injury) Status: Acute (6) History of substance abuse Status: Acute (7) Depression Status: Chronic (8) Hyperlipidemia Status: Chronic (9) COPD (chronic obstructive pulmonary disease) Status: Chronic (10) Hypertension Status: Chronic (11) Diabetes Status: Chronic (12) Bacteremia associated with intravascular line Status: Acute DS: Medications - Discharge Medications Prescriptions: ascorbic acid (vitamin C) [Vitamin C] 500 mg PO DAILY 30 Days #30 tab gabapentin 300 mg PO Q8HR #90 tab silver sulfadiazine [SSD] 1 applicatio TOPICAL DAILY 30 Days #1 g zinc sulfate 220 mg PO DAILY 30 Days #30 tab DS: Summary Hospital Course: 57-year-old male with history of left foot chronic infection positive for osteomyelitis and MRSA, status post resection of first ray, second ray and fifth ray. Noncompliant with medication treatment. Has a PICC line in place and is on vancomycin. Has missed four doses. Presented to the emergency room with hallucinations and fever. Lactic acid 1, no WBC elevation. Patient noted hypotensive, blood pressure 80s-90s. During course of hospitalization, the following took place: Found with Left Foot Cellulitis/osteomyelitis status post Left 5th ray and second toe amputations. MRI negative for Osteomyelitis. Restarted vancomycin and Rocephin, ID and Podiatry specialist consulted -Probable sepsis and bacteremia secondary to Acinetobacter, Sutures were removed 10/12. -BC negative, was ok for PICC. PICC placed on 10/19 -Cleared per infectious disease for DC, pt. to continue on abx as OP infusion center. Bacteremia associated with IV line. 1#2 BC positive 10/09/17 repeated blood culture NTD x 3 days continued on abx. Hypertension, chronic Pt. initially hypotensive, meds held, was given IVF. Restarted as BP started to increase. Instructed to continue home meds, decreased home dosage of lisinopril to 5 mg p.o. daily. DANILO: Cr 1.51, secondary to infection/dehydration; resolved -Resolved with IV fluid hydration Chronic pain/Chronic opioid use/History of polysubstance abuse -Continued methadone 200 mg p.o. daily, verified at methadone clinic Type 2 diabetes, on metformin -initially Metformin held due to DANILO, then restarted when renal fx improved. ordered Accu-Cheks before meals and at bedtime with insulin therapy -put on Diabetic diet COPD/Tobacco abuse: Chronic, does not appear to be in exacerbation -DuoNeb's every 4 as needed -counseled on tobacco cessation Dysphagia; possible stricture-resolved -Swallow evaluation ordered -no issues. Confirmed likely stricture and recommend follow-up with GI. Can be done as outpatient. -Daily PPI Non compliance Substance abuse, urine tox + cocaine -discussed need for complain, verbalizes understanding. -Counseled about continued drug use DVT prophylaxis: Heparin sq Pt. improved, tolerated abx well. Cultures followed. CM consulted and arranged IV abx for infusion center Patient to follow-up at [facility] as well as Dr. David. Continue with wound care as instructed, given supplies. Discharged in stable condition - Time Spent with Patient Total time spent providing and/or coordinating discharge services: Greater than 30 minutes - Quality: VTE Deep Vein Thrombosis/Pulmonary Embolism Present on Admission: No Exam Vital signs: Vital Signs 10/19/17 20:00 10/20/17 00:00 10/20/17 04:00 Temperature 97.7 F 97.8 F 97.9 F Pulse Rate 52 L 50 L 50 L Respiratory Rate 18 18 18 Blood Pressure 101/54 L 99/56 L 101/58 L Pulse Oximetry 96 98 98 10/20/17 08:00 Temperature 97.9 F Pulse Rate 46 L Respiratory Rate 16 Blood Pressure 102/52 L Pulse Oximetry 97 Intake & Output 10/19/17 10/20/17 10/20/17 18:59 06:59 18:59 Intake Total 1320 / 1320 240 / 240 250 / 250 Output Total 1225 / 1225 2200 / 2200 Balance 95 / 95 -1960 / -1960 250 / 250 Weight 65.7 kg 65.9 kg Intake: IV 600 / 600 250 / 250 Vancomycin Inj 800 MG In NS Inj 500 / 500 250 / 250 250 ML @ 250 mls/hr IV.SIG Q12H [facility] Rx#:[id number] Rocephin Inj 2,000 MG In NS Inj 100 / 100 100 ML @ 200 mls/hr IV.SIG Q24H LEON Rx#:[id number] Oral 720 / 720 240 / 240 Output: Urine 1225 / 1225 2200 / 2200 Other: # Bowel Movements 1 0 Results Procedures completed during hospitalization: none Labs on day of discharge: Labs from last 24 hours 10/20/17 10/20/17 10/20/17 11:40 07:48 06:59 Creatinine 1.04 Estimated GFR 73 L POC Glucose 101 83 10/19/17 20:14 Creatinine Estimated GFR POC Glucose 145 H - Impressions ITS Impressions Chest X-Ray 10/09/17 23:07 CONCLUSION: 1. No acute cardiopulmonary abnormality is identified. 2. Right upper extremity PICC distal tip overlies the right axilla, likely in the right axillary vein. Foot MRI 10/12/17 00:00 CONCLUSION: 1. Status post recent amputation of the second digit down to the level of the metatarsal neck with edema edema in this area which likely is postoperative. 2. Stable residual edema in the residual fifth metatarsal base which is nonspecific. 3. Mild residual marrow edema is an noted in the residual distal portion of the first metatarsal at the amputation site. 4. The first metatarsal tarsal joint is intact with no marrow edema or destructive change. Foot X-Ray 10/12/17 00:00 CONCLUSION: 1. Stable postsurgical changes with transmetatarsal amputations of digits 1, 2 and 5. 2. Increasing demineralization along the ostomy line of the second metatarsal and cortical irregularity of the first tarsometatarsal articulation. Findings could represent developing osteomyelitis in both locations. 3. The stump soft tissues appear to be edematous. Discharge Plan - Discharge Disposition Patient Disposition: 01 Discharge Home - Discharge Condition Condition: Stable - Discharge Order Discharge Orders: Discharge Order (Routine); Ordered 10/20/17 Ordered By: Shireen Harris - Discharge Details Anticipated Discharge Date: 10/20/17 - Physicians Team Primary Care Provider: UNKNOWN, Attending Provider: Anuj Schroeder Other Providers: Vida Will MD ; Danuta James DPM
== END 2017-10-20 13:42 | disposition home or self-care (01) ==
LOC: NEDA 21:43 → NEPC 21:43 → NEDA 10-10 08:27 → NEPFCDU 10-10 08:32 → H7ONC 10-14 14:46 → N04 10-15 16:00
PROVIDERS: ADMIT Internal Medicine; ATTEND Internal Medicine

== ENCOUNTER 2017-11-02 20:57 | Inpatient (IN) ==
[2017-11-02] MEDS ORDERED: Vancomycin Inj 1,000 MG in Sodium Chlor 0.9% Inj 250 ML IV.SIG STA (21:14)
[2017-11-02] MEDS ORDERED: Piperacil/Tazo 4.5 GM Premix 4.5 GM/100 ML BAG IV.SIG STA (21:14)
[2017-11-02] MEDS ORDERED: Sod Chloride 0.9% Inj 1,000 ML IV.SIG SCH (21:15)
[2017-11-02] MEDS: Sod Chloride 0.9% Inj 1,000 ML IV.SIG SCH ×2 (21:34→22:21)
[2017-11-02 21:47] LABS: Baso % (Auto) 0.2 % (0.0-2.0); Eos % (Auto) 0.4 % (0.0-4.0); Hematocrit 39.7 % (39.0-51.0); Hemoglobin 13.3 gm/dL (13.0-17.0); Lymph # (Auto) 0.2 th/mm3 (1.0-4.8); Lymph % (Auto) 4.8 % (9.0-44.0); Mean Corpuscular HGB Conc 33.4 % (32.0-36.0); Mean Corpuscular Volume 89.6 fL (80.0-100.0); Mean Platelet Volume 7.7 fL (7.0-11.0); Mono % (Auto) 0.4 % (0.0-8.0); Neut % (Auto) 94.2 % (16.0-70.0); Platelet Count 163 th/mm3 (150-450); Red Blood Count 4.43 mil/mm3 (4.50-5.90); Red Cell Distribution Width 15.8 % (11.6-17.2); White Blood Count 4.2 th/mm3 (4.0-11.0)
--- NOTE | 2017-11-02 21:47 | ED ---
HPI General Chief complaint: Nausea/Vomiting/Diarrhea Stated complaint: fever/evac Time Seen by Provider: 11/02/17 21:10 Source: patient and EMS Mode of arrival: EMS Limitations: no limitations History of Present Illness HPI narrative: Patient is a 57-year-old homeless male presenting to the emergency department for evaluation of fever, chills, body aches nausea, vomiting. Patient states his symptoms started today. He reports that he has not had IV antibiotics for osteomyelitis in the last 6 days. Patient reports that he continues to use cocaine and IV heroin. He initially denied IV drug use. Patient denies any chest pain, shortness of breath, vomiting. Patient has a PICC line in his left upper arm. Denies using it for recreational drug use. MD complaint: flu like symptoms, generalized body aches Onset (ago): hour(s) Severity: moderate Severity scale (1-10): 5 Quality: aching Pain Consistency: constant Relieving factors: none Exacerbating factors: none Associated symptoms: fever/chills and shortness of breath Treatments prior to arrival: other (Cocaine an IV heroin to help with the pain.) Related Data Home Medications Medication Instructions Recorded Confirmed amlodipine 5 mg PO DAILY 08/28/17 10/27/17 metformin 500 mg PO BIDPC 08/28/17 10/27/17 methadone 200 mg PO DAILY 08/28/17 10/27/17 ceftriaxone 2 g IV Q24H 10/21/17 10/27/17 vancomycin in 0.9 % sodium chl 1.5 g IV Q24H 10/21/17 10/27/17 Previous Rx's Medication Instructions Recorded albuterol sulfate [ProAir HFA] 2 puff INHALATION Q4H PRN #1 10/01/17 inhaler ascorbic acid (vitamin C) [Vitamin 500 mg PO DAILY 30 Days #30 tab 10/20/17 C] gabapentin 300 mg PO Q8HR #90 tab 10/20/17 lisinopril 5 mg PO DAILY #0 tab 10/20/17 silver sulfadiazine [SSD] 1 applicatio TOPICAL DAILY 30 Days 10/20/17 #1 g zinc sulfate 220 mg PO DAILY 30 Days #30 tab 10/20/17 Allergies Allergy/AdvReac Type Severity Reaction Status Date / Time codeine AdvReac Severe NAUSEA Verified 11/02/17 21:19 Review of Systems ROS: all other systems reviewed are negative PMFSH History History Provided By: Patient and Medical Record Medical History Medical History Depression (Chronic) Hyperlipidemia (Chronic) Hepatitis C (Chronic) Cirrhosis of liver (Chronic) COPD (chronic obstructive pulmonary disease) (Chronic) CHF (congestive heart failure) (Chronic) Hypertension (Chronic) Diabetes (Chronic) Osteomyelitis due to secondary diabetes (Chronic) Chronic pain (Chronic) Chronic, continuous use of opioids (Chronic) Hx MRSA infection (Chronic) Tobacco abuse (Chronic) Amputated toe of left foot (Resolved) History of complete ray amputation of fifth toe of left foot (Resolved) History of complete ray amputation of second toe of left foot (Resolved) Hip fracture (Inactive) Hip fracture (Inactive) Surgical History Surgical History H/O hernia repair (Resolved) H/O hemorrhoidectomy (Resolved) H/O left inguinal hernia repair (Resolved) Hx of tonsillectomy (Resolved) Family History Family History Father [place] (myocardial infarction) Asthma Social History Social History Substance History: Active Abuse Second Hand Smoke Exposure: Yes Smoking Status: Current every day smoker Tobacco Type: Cigarettes Packs Per Day: 1 Cigarettes Per Day: 20.0 Years Smoked: 48 Pack-Years: 48.00 How Often Do You Have a Drink Containing Alcohol: Never Recent Travel in [facility] within the Last 8 Weeks: No Recent Out of Country Travel within the Last 8 Weeks: No Exam Narrative Exam Narrative: GENERAL: Thin, well-developed, alert male. Appears uncomfortable, no acute distress. SKIN: Focused skin assessment warm/dry. HEAD: Atraumatic. Normocephalic. EYES: Pupils equal and round. No scleral icterus. No injection or drainage. ENT: No nasal bleeding or discharge. Mucous membranes pink and moist. NECK: Trachea midline. No JVD. CARDIOVASCULAR: Tachycardic. No murmur appreciated. RESPIRATORY: No accessory muscle use. Clear to auscultation. Breath sounds equal bilaterally. GASTROINTESTINAL: Abdomen soft, non-tender, nondistended. Hepatic and splenic margins not palpable. MUSCULOSKELETAL: No obvious deformities. No clubbing. No cyanosis. No edema. NEUROLOGICAL: Awake and alert. No obvious cranial nerve deficits. Motor grossly within normal limits. Normal speech. PSYCHIATRIC: Appropriate mood and affect; insight and judgment normal. Course Initial Documented Vital Signs Temperature 104.2 F H 11/02/17 21:06 Pulse Rate 104 H 11/02/17 21:06 Respiratory Rate 28 H 11/02/17 21:06 Blood Pressure 141/93 H 11/02/17 21:06 Pulse Oximetry 98 11/02/17 21:06 Last Documented Vital Signs Temperature 101.6 F H 11/02/17 23:01 Pulse Rate 105 H 11/02/17 21:34 Respiratory Rate 28 H 11/02/17 21:34 Blood Pressure 141/95 H 11/02/17 21:34 Pulse Oximetry 99 11/02/17 21:34 Medical Decision Making MDM Narrative Medical decision making narrative: Patient is 57-year-old male that presented to the emergency department for evaluation of flulike symptoms. Patient is febrile and tachycardic on arrival. Sepsis workup initiated. Patient has blood cultures pending, he was started on antibiotics empirically. He reports he missed 6 days of IV antibiotics for left foot osteomyelitis. Magnesium level is 1.3, potassium 3.2, oral and IV replacement ordered. Lactic acid 2.1, patient has 2 L of IV fluids ordered. Additionally patient received IV acetaminophen for the temp of 104.2 which was taken rectally. Temp was reassessed at 101.6, ibuprofen ordered. An additional set of blood cultures was ordered off of the PICC line. Chest x- ray confirms PICC line placement, chest x-ray shows no acute abnormalities. Patient will be admitted at this time. Dr. Ayala accepted admit, admit orders placed. Medical Screen Exam Complete: Yes Emergency Medical Condition: Yes Differential Diagnosis Differential Diagnosis: UTI versus metabolic abnormality versus sepsis versus IV drug abuse versus other Medical Records Medical records reviewed: Yes I reviewed the patient's medical records. Lab Data Lab results reviewed: Yes I reviewed the patient's lab results. Result diagrams: 11/02/17 21:30 11/02/17 21:30 Lab Results 11/02/17 11/02/17 11/02/17 Range/Units 21:30 21:30 21:30 WBC 4.2 (4.0-11.0) th/mm3 RBC 4.43 L (4.50-5.90) mil/mm3 Hgb 13.3 (13.0-17.0) gm/dL Hct 39.7 (39.0-51.0) % MCV 89.6 (80.0-100.0) fL MCH 30.0 (27.0-34.0) pg MCHC 33.4 (32.0-36.0) % RDW 15.8 (11.6-17.2) % Plt Count 163 D (150-450) th/mm3 MPV 7.7 (7.0-11.0) fL Neut % (Auto) 94.2 H (16.0-70.0) % Lymph % (Auto) 4.8 L (9.0-44.0) % [place] % (Auto) 0.4 (0.0-8.0) % Eos % (Auto) 0.4 (0.0-4.0) % Baso % (Auto) 0.2 (0.0-2.0) % Neut # (Auto) 4.0 (1.8-7.7) th/mm3 Lymph # (Auto) 0.2 L (1.0-4.8) th/mm3 [place] # (Auto) 0.0 (0.0-0.9) th/mm3 Eos # (Auto) 0.0 (0.0-0.4) th/mm3 Baso # (Auto) 0.0 (0.0-0.2) th/mm3 WBC Differential . Differential Comment Auto diff final PT 10.8 (9.8-11.6) sec INR 1.1 Ratio APTT 24.7 (24.3-30.1) sec Sodium 136 (136-145) meq/L Potassium 3.2 L (3.5-5.1) meq/L Chloride 99 (98-107) meq/L Carbon Dioxide 28.1 (21.0-32.0) meq/L Anion Gap 9 (5-15) meq/L BUN 18 (7-18) mg/dL Creatinine 1.46 H (0.60-1.30) mg/dL Estimated GFR 49 L (>89) mL/min Random Glucose 91 (74-106) mg/dL Lactic Acid (0.4-2.0) mmol/L Calcium 8.7 (8.5-10.1) mg/dL Magnesium 1.3 L (1.5-2.5) mg/dL Total Bilirubin 0.4 (0.2-1.0) mg/dL AST 23 (15-37) U/L ALT 18 (12-78) U/L Alkaline Phosphatase 128 H (45-117) U/L Total Protein 8.0 D (6.4-8.2) g/dL Albumin 3.4 (3.4-5.0) g/dL Lipase 51 L (73-393) U/L 11/02/17 Range/Units 21:30 WBC (4.0-11.0) th/mm3 RBC (4.50-5.90) mil/mm3 Hgb (13.0-17.0) gm/dL Hct (39.0-51.0) % MCV (80.0-100.0) fL MCH (27.0-34.0) pg MCHC (32.0-36.0) % RDW (11.6-17.2) % Plt Count (150-450) th/mm3 MPV (7.0-11.0) fL Neut % (Auto) (16.0-70.0) % Lymph % (Auto) (9.0-44.0) % [place] % (Auto) (0.0-8.0) % Eos % (Auto) (0.0-4.0) % Baso % (Auto) (0.0-2.0) % Neut # (Auto) (1.8-7.7) th/mm3 Lymph # (Auto) (1.0-4.8) th/mm3 [place] # (Auto) (0.0-0.9) th/mm3 Eos # (Auto) (0.0-0.4) th/mm3 Baso # (Auto) (0.0-0.2) th/mm3 WBC Differential Differential Comment PT (9.8-11.6) sec INR Ratio APTT (24.3-30.1) sec Sodium (136-145) meq/L Potassium (3.5-5.1) meq/L Chloride (98-107) meq/L Carbon Dioxide (21.0-32.0) meq/L Anion Gap (5-15) meq/L BUN (7-18) mg/dL Creatinine (0.60-1.30) mg/dL Estimated GFR (>89) mL/min Random Glucose (74-106) mg/dL Lactic Acid 2.1 H (0.4-2.0) mmol/L Calcium (8.5-10.1) mg/dL Magnesium (1.5-2.5) mg/dL Total Bilirubin (0.2-1.0) mg/dL AST (15-37) U/L ALT (12-78) U/L Alkaline Phosphatase (45-117) U/L Total Protein (6.4-8.2) g/dL Albumin (3.4-5.0) g/dL Lipase (73-393) U/L Imaging Data Radiologist's impression: Chest X-Ray 11/02/17 21:11 CONCLUSION: 1. No acute cardiopulmonary disease. 2. Right-sided PICC line has its tip in superior vena cava. Discharge Plan Discharge Disposition Patient Disposition: 30 Still Patient Discharge Condition Condition: Stable Discharge Details Diagnosis: Osteomyelitis, History of substance abuse, Fever, Sepsis, Hypomagnesemia Physicians Team ED Provider: Yessi Guerrero ED Midlevel Provider: Sybil Canales Primary Care Provider: UNKNOWN, Attending Provider: Leila Ayala Status ED Status: Admitted Patient
--- NOTE | 2017-11-02 21:53 | XR ---
EXAM DATE: 11/02/2017 9:49 PM EDT AGE/SEX: 57 years / Male INDICATIONS: Fever. CLINICAL DATA: This is the patient's initial encounter. Patient reports that signs and symptoms have been present for 1 day and indicates a pain score of 0/10. MEDICAL/SURGICAL HISTORY: None. None. COMPARISON: . FINDINGS: A single AP view of the chest demonstrates the lungs to be symmetrically aerated without evidence of mass, infiltrate or effusion. The cardiomediastinal contours are unremarkable. Osseous structures a re intact. Right-sided PICC line has its tip in the superior vena cava in good position. CONCLUSION: 1. No acute cardiopulmonary disease. 2. Right-sided PICC line has its tip in superior vena cava. Electronically signed by: Bruce Silveira MD 11/02/2017 9:51 PM EDT
[2017-11-02 22:00] LABS: Activated Partial Thrombo Time 24.7 sec (24.3-30.1); INR 1.1 Ratio; Prothrombin Time 10.8 sec (9.8-11.6)
[2017-11-02 22:20] LABS: Anion Gap 9 meq/L (5-15); Blood Urea Nitrogen 18 mg/dL (7-18); Calcium 8.7 mg/dL (8.5-10.1); Carbon Dioxide 28.1 meq/L (21.0-32.0); Chloride 99 meq/L (98-107); Glomerular Filtration Rate 49 mL/min (>89); Glucose,Random 91 mg/dL (74-106); Potassium 3.2 meq/L (3.5-5.1); Sodium 136 meq/L (136-145)
[2017-11-02 22:21] LABS: Alanine Aminotransferase 18 U/L (12-78); Albumin 3.4 g/dL (3.4-5.0); Aspartate Aminotransferase 23 U/L (15-37); Lipase 51 U/L (73-393); Magnesium 1.3 mg/dL (1.5-2.5)
[2017-11-02 22:23] LABS: Alkaline Phosphatase 128 U/L (45-117)
[2017-11-02] MEDS ORDERED: Mag Sulf 1 gm/100 ml Premix 100 ML IV.SIG ONE (22:25)
[2017-11-02 23:24] LABS: Bilirubin,Urine Negative (Negative); Clarity,Urine Hazy (Clear); Color,Urine Yellow (Yellw/Straw); Glucose,Urine (UA) Negative (Negative); Leukocyte Esterase,Urine Negative (Negative); Mucus,Urine Few /lpf (Occasional); Nitrite,Urine Negative (Negative); Specific Gravity,Urine 1.015 (1.002-1.035)
[2017-11-02 23:29] LABS: Amphetamine Screen,Urine Neg (Neg); Barbiturate Screen,Urine Neg (Neg); Cannabinoid Screen,Urine Neg (Neg); Cocaine Screen,Urine Pos (Neg)
[2017-11-02 23:33] LABS: Opiate Screen,Urine Pos (Neg)
[2017-11-02] MEDS ORDERED: Vancomycin Consult Pharmacy OTHER PRN (23:53)
[2017-11-02] MEDS ORDERED: Acetaminophen 325 MG Tablet PO PRN (23:55)
[2017-11-02] MEDS ORDERED: Bisacodyl 10 MG Supp RECTAL PRN (23:55)
[2017-11-02] MEDS ORDERED: Dextrose 50% in Water 50 ML Vial IV.PUSH PRN (23:58)
--- NOTE | 2017-11-03 00:08 | P.HP ---
History of Present Illness Service: [facility] Primary Care Physician: UNKNOWN History of Present Illness: 57-year-old male with a past medical history significant for IV drug abuse, osteomyelitis with PICC line undergoing vancomycin infusions, COPD, CHF, hypertension presents to the emergency department for evaluation of pain "all over his body" and fever. The patient was recently treated in the hospital for osteomyelitis of the left foot and was discharged on vancomycin infusions with the PICC line. He is homeless and reports he has been unable to get to the infusion center for the past 5 days secondary to weakness. He states he last used IV drugs earlier today. He denies any injection into his PICC line. He denies chest pain or shortness of breath. Positive fever/chills. No abdominal pain. No nausea/vomiting/diarrhea. No lateralizing signs/symptoms. Inpatient Certification: I certify that the inpatient services were ordered in accordance with Medicare regulations governing the order. This includes certification that hospital inpatient services are reasonable and necessary and in the case of services not specified as inpatient-only under 42 CFR 419.22(n), that they are appropriately provided as inpatient services in accordance to with the 2-midnight benchmark under 43 CFR 412.3(e) Estimated Total Length of Stay (Days): 3 Plans for Post Hospital Care: Not yet determined Review of Systems All other systems reviewed negative except as stated in [facility] - History History Provided By: Patient, Medical Record - Medical History Medical History: Medical History (Last Updated 11/03/17 @ 00:02 by Leila Ayala MD) Depression (Chronic) Hyperlipidemia (Chronic) Hepatitis C (Chronic) Cirrhosis of liver (Chronic) COPD (chronic obstructive pulmonary disease) (Chronic) CHF (congestive heart failure) (Chronic) Hypertension (Chronic) Diabetes (Chronic) Osteomyelitis due to secondary diabetes (Chronic) History of amputation of toe Chronic pain Chronic, continuous use of opioids Hx MRSA infection Tobacco abuse Amputated toe of left foot (Resolved) History of complete ray amputation of fifth toe of left foot History of complete ray amputation of second toe of left foot Hip fracture (Inactive) Hip fracture (Inactive) - Surgical History Surgical History: Surgical History (Last Updated 11/02/17 @ 22:31 by RUSS Lira) H/O hernia repair (Resolved) H/O hemorrhoidectomy (Resolved) H/O left inguinal hernia repair Hx of tonsillectomy (Resolved) - Family History Family History: Family History (Last Reviewed 11/02/17 @ 22:30 by RUSS Lira) Father [place] (myocardial infarction) Asthma - Tobacco History Second Hand Smoke Exposure: Yes Tobacco Use In Past 30 Days: Yes Smoking Status: Current every day smoker Tobacco Type: Cigarettes Packs Per Day: 1 Years Smoked: 48 - Alcohol History How Often Do You Have a Drink Containing Alcohol: Never - Substance Use History Substance History: Active Abuse - Substance Use Type Opiates Status: Active Route Used: By Mouth Heroin Status: Active Route Used: Intravenously - Travel History Recent Travel in the [place] Within the Last 8 Weeks: No Recent Travel Out of the Country Within the Last 8 Weeks: No - Immunization History Tetanus Immunization: Unsure Hx Influenza Vaccine This Season: No Medications and Allergies Active Medications: Active Medications Sodium Chloride (Ns Inj) 1,000 mls @ 0 mls/hr IV.SIG .Q0M [facility] Last Infusion: 11/02/17 23:14 Dose: Infused Sodium Chloride (Ns Inj) 1,000 mls @ 0 mls/hr IV.SIG .Q0M [facility] Last Admin: 11/02/17 23:13 Dose: 1,000 mls/hr Allergies Allergy/AdvReac Type Severity Reaction Status Date / Time codeine AdvReac Severe NAUSEA Verified 11/02/17 21:19 Home Medications Medication Instructions Recorded Confirmed Type amlodipine 5 mg PO DAILY 08/28/17 10/27/17 History metformin 500 mg PO BIDPC 08/28/17 10/27/17 History methadone 200 mg PO DAILY 08/28/17 10/27/17 History ceftriaxone 2 g IV Q24H 10/21/17 10/27/17 History vancomycin in 0.9 % sodium chl 1.5 g IV Q24H 10/21/17 10/27/17 History Exam Vital signs: Vital Signs 11/02/17 21:06 11/02/17 21:34 11/02/17 23:01 Temperature 104.2 F H 101.6 F H Pulse Rate 104 H 98 H Respiratory Rate 28 H 28 H Blood Pressure 141/93 H 141/95 H Pulse Oximetry 98 99 Intake & Output 11/02/17 11/02/17 11/03/17 06:59 18:59 06:59 Intake Total 2200 / 2200 Balance 2200 / 2200 Weight 65.771 kg Intake: IV 2199 / 2199 Ofirmev Inj 1,000 mg In 100 ml 100 / 100 @ 400 mls/hr IV.SIG ONCE ONE Rx #:[id number] Zosyn 4.5 GM Premix 4.5 gm In 100 / 100 100 ml @ 200 mls/hr IV.SIG STAT STA Rx#:[id number] NS Inj 1,000 ML @ Wide Open IV. 1999 SIG .Q0M LEON Rx#:[id number] Narrative: Gen.: No acute distress Head: Normocephalic. Atraumatic. EENT: Pupils equal round and reactive to light. Nose without drainage. Airway intact. Throat without injection. Cardiovascular: Regular rate and rhythm. No murmurs, rubs or gallops. Respiratory: Lungs clear to auscultation bilaterally. No wheezes or rhonchi. Abdomen: Soft, nontender, nondistended. No peritoneal signs. Musculoskeletal: No gross deformities. No edema. Skin: No obvious rashes or erythema. Wound to the lateral aspect of left foot without drainage. Neuro: Sensory and motor grossly intact. Cranial nerves II through XII grossly intact. Results - Labs CBC & Chem 7: 11/02/17 21:30 11/02/17 21:30 Labs: Laboratory Results - last 24 hr 11/02/17 11/02/17 11/02/17 21:30 21:30 21:30 WBC 4.2 RBC 4.43 L Hgb 13.3 Hct 39.7 MCV 89.6 MCH 30.0 MCHC 33.4 RDW 15.8 Plt Count 163 D MPV 7.7 Neut % (Auto) 94.2 H Lymph % (Auto) 4.8 L [place] % (Auto) 0.4 Eos % (Auto) 0.4 Baso % (Auto) 0.2 Neut # (Auto) 4.0 Lymph # (Auto) 0.2 L [place] # (Auto) 0.0 Eos # (Auto) 0.0 Baso # (Auto) 0.0 WBC Differential . Differential Comment Auto diff final PT 10.8 INR 1.1 APTT 24.7 Sodium 136 Potassium 3.2 L Chloride 99 Carbon Dioxide 28.1 Anion Gap 9 BUN 18 Creatinine 1.46 H Estimated GFR 49 L Random Glucose 91 Lactic Acid Calcium 8.7 Magnesium 1.3 L Total Bilirubin 0.4 AST 23 ALT 18 Alkaline Phosphatase 128 H Total Protein 8.0 D Albumin 3.4 Lipase 51 L Urine Color Urine Clarity Urine pH Ur Specific [place] Urine Protein Urine Glucose (UA) Urine Ketones Urine Occult Blood Urine Nitrate Urine Bilirubin Urine Urobilinogen Ur Leukocyte Esterase Urine RBC Urine WBC Urine Mucus Micro UA Comment Ur Microscopic Review Urine Culture Comments Urine Opiates Screen Ur Barbiturates Screen Ur Amphetamines Screen U Benzodiazepines Scrn Urine Cocaine Screen U Cannabinoids Screen 11/02/17 11/02/17 11/02/17 21:30 23:00 23:00 WBC RBC Hgb Hct MCV MCH MCHC RDW Plt Count MPV Neut % (Auto) Lymph % (Auto) [place] % (Auto) Eos % (Auto) Baso % (Auto) Neut # (Auto) Lymph # (Auto) [place] # (Auto) Eos # (Auto) Baso # (Auto) WBC Differential Differential Comment PT INR APTT Sodium Potassium Chloride Carbon Dioxide Anion Gap BUN Creatinine Estimated GFR Random Glucose Lactic Acid 2.1 H Calcium Magnesium Total Bilirubin AST ALT Alkaline Phosphatase Total Protein Albumin Lipase Urine Color Yellow Urine Clarity Hazy H Urine pH 5.0 Ur Specific [place] 1.015 Urine Protein 30 H Urine Glucose (UA) Negative Urine Ketones Negative Urine Occult Blood Small H Urine Nitrate Negative Urine Bilirubin Negative Urine Urobilinogen Less than 2 Ur Leukocyte Esterase Negative Urine RBC 1 Urine WBC 3 Urine Mucus Few H Micro UA Comment Culture not ind Ur Microscopic Review Not Reportable Urine Culture Comments Culture not ind Urine Opiates Screen Pos H Ur Barbiturates Screen Neg Ur Amphetamines Screen Neg U Benzodiazepines Scrn Neg Urine Cocaine Screen Pos H U Cannabinoids Screen Neg - Imaging Impressions Chest X-Ray 11/02/17 21:11 CONCLUSION: 1. No acute cardiopulmonary disease. 2. Right-sided PICC line has its tip in superior vena cava. Caprini VTE Risk Assessment Caprini VTE Risk Assessment: No/Low Risk (score <= 1) Caprini Risk Assessment Model: Point Value = 1 Point Value = 2 Point Value = 3 Point Value = 5 Age 41-60 Minor surgery BMI > 25 kg/m2 Swollen legs Varicose veins or History of unexplained or recurrent spontaneous Oral contraceptives or hormone replacement Sepsis (< 1 month) Serious lung disease, including pneumonia (< 1 month) Abnormal pulmonary function Acute myocardial infarction Congestive heart failure (< 1 month) History of inflammatory bowel disease Medical patient at bed rest Age 61-74 Arthroscopic surgery Major open surgery (> 45 min) Laparoscopic surgery (> 45 min) Malignancy Confined to bed (> 72 hours) Immobilizing plaster cast Central venous access Age >= 75 History of VTE Family history of VTE Factor V Leiden Prothrombin [id number] Lupus anticoagulant Anticardiolipin antibodies Elevated serum homocysteine Heparin-induced thrombocytopenia Other congenital or acquired thrombophilia Stroke (< 1 month) Elective arthroplasty Hip, pelvis, or leg fracture Acute spinal cord injury (< 1 month) Prophylaxis Regimen: Total Risk Factor Score Risk Level Prophylaxis Regimen 0-1 Low Early ambulation 2 Moderate Order ONE of the following: *Sequential Compression Device (SCD) *Heparin 5000 units SQ BID 3-4 Higher Order ONE of the following medications: *Heparin 5000 units SQ TID *Enoxaparin/Lovenox 40 mg SQ daily (WT < 150 kg, CrCl > 30 mL/min) *Enoxaparin/Lovenox 30 mg SQ daily (WT < 150 kg, CrCl > 10-29 mL/min) *Enoxaparin/Lovenox 30 mg SQ BID (WT < 150 kg, CrCl > 30 mL/min) AND/OR *Sequential Compression Device (SCD) 5 or more Highest Order ONE of the following medications: *Heparin 5000 units SQ TID (Preferred with Epidurals) *Enoxaparin/Lovenox 40 mg SQ daily (WT < 150 kg, CrCl > 30 mL/min) *Enoxaparin/Lovenox 30 mg SQ daily (WT < 150 kg, CrCl > 10-29 mL/min) *Enoxaparin/Lovenox 30 mg SQ BID (WT < 150 kg, CrCl > 30 mL/min) AND *Sequential Compression Device (SCD) Assessment and Plan - Plan Assessment/plan: 1. Sepsis/osteomyelitis Patient with elevated lactic acid, fever, tachycardia and left shift Recently diagnosed with osteomyelitis and discharged on 6 weeks of IV vancomycin Patient has not had vancomycin infusion for 5 days Blood cultures pending Echo pending given patient's history of IV drug abuse Vancomycin/Zosyn Infectious disease consulted, appreciate assistance 2. Diabetes mellitus Sliding-scale insulin Monitor blood glucose 3. Hypertension/hyperlipidemia/CHF Continue home medications once reconciled 4. Hepatitis C/cirrhosis Gentle IV fluid hydration 5. Hypokalemia/hypomagnesemia Status post repletion in the emergency department Monitor BMP FEN Regular diet Electrolytes: As above NS at 70 cc/hour
[2017-11-03] MEDS: Sod Chloride 0.9% Inj 1,000 ML IV.CONT SCH ×2 (01:58→15:28)
[2017-11-03] MEDS: Insulin NovoLOG Aspart Correctional Sugar Inj SQ SCH ×5 (02:06→22:40)
[2017-11-03] MEDS: Piperacil/Tazo 3.375 GM Premix 50 ML IV.SIG SCH ×5 (03:40→22:32)
[2017-11-03] MEDS ORDERED: Sod Chloride 0.9% Inj 1,000 ML IV.SIG SCH ×2 (04:30→06:45)
[2017-11-03] MEDS: Senna/Docusate Sodium 8.6/50 MG Tablet PO SCH ×3 (08:55→22:37)
--- NOTE | 2017-11-03 09:26 | P.PN ---
Subjective Interval history: Follow-up visit for osteomyelitis of left foot with ongoing IV vancomycin infusions. Patient seen and examined resting in bed comfortably, appears to be in no acute distress. He reports he is hurting all over, visible chills. He endorses nausea and vomiting although later is seen eating. He reports that he takes methadone at [facility] and is requesting this. Physical Exam Vital signs: Vital Signs 11/02/17 21:06 11/02/17 21:34 11/02/17 23:01 Temperature 104.2 F H 101.6 F H Pulse Rate 104 H 98 H Respiratory Rate 28 H 28 H Blood Pressure 141/93 H 141/95 H Pulse Oximetry 98 99 11/03/17 00:29 11/03/17 02:43 11/03/17 04:00 Temperature 97.9 F 97.5 F L Pulse Rate 78 79 60 Respiratory Rate 20 17 19 Blood Pressure 95/65 L 93/54 L 78/54 L Pulse Oximetry 96 94 L 11/03/17 04:15 11/03/17 04:31 Temperature Pulse Rate Respiratory Rate Blood Pressure 74/46 L 87/55 L Pulse Oximetry Intake & Output 11/02/17 11/03/17 11/03/17 18:59 06:59 18:59 Intake Total 5080 / 5080 Balance 5080 / 5080 Weight 66.9 kg Intake: IV 4600 / 4600 Ofirmev Inj 1,000 mg In 100 ml 100 / 100 @ 400 mls/hr IV.SIG ONCE ONE Rx #:[id number] Magnesium Sulfate 1 gm/D5W 100 100 / 100 ml Premix 100 ML @ 100 mls/hr IV.SIG ONCE ONE Rx#:[id number] Zosyn 3.375 GM Premix 50 ML @ 50 / 50 100 mls/hr IV.SIG Q6H LEON Rx#: [id number] Zosyn 4.5 GM Premix 4.5 gm In 100 / 100 100 ml @ 200 mls/hr IV.SIG STAT STA Rx#:[id number] NS Inj 1,000 ML @ Wide Open IV. 4000 / 4000 SIG BOLUS LEON Rx#:[id number] Vancomycin Inj 1,000 MG In NS 250 / 250 Inj 250 ML @ 250 mls/hr IV.SIG STAT STA Rx#:[id number] Oral 480 / 480 Narrative: GENERAL: Well nourished, well developed male resting in bed appears to be cold with chills, in no acute distress. SKIN: Warm and dry. HEAD: Atraumatic. Normocephalic. EYES: Pupils equal and round. No scleral icterus. No injection or drainage. ENT: No nasal bleeding or discharge. Mucous membranes pink and moist. NECK: Trachea midline. No JVD. CARDIOVASCULAR: Regular rate and rhythm. RESPIRATORY: No accessory muscle use. Clear to auscultation. Breath sounds equal bilaterally. GASTROINTESTINAL: Abdomen soft, non-tender, nondistended. + bowel sounds. MUSCULOSKELETAL: Extremities without clubbing, cyanosis, or edema. No obvious deformities. NEUROLOGICAL: Awake and alert, oriented x3. No obvious cranial nerve deficits. Motor grossly within normal limits. Five out of 5 muscle strength in the arms and legs. Normal speech. PSYCHIATRIC: Appropriate mood and affect; insight and judgment normal. Results - Labs CBC & Chem 7: 11/03/17 14:58 11/03/17 11:55 Laboratory Results - last 24 hr 11/02/17 11/02/17 11/02/17 21:30 21:30 21:30 WBC 4.2 RBC 4.43 L Hgb 13.3 Hct 39.7 MCV 89.6 MCH 30.0 MCHC 33.4 RDW 15.8 Plt Count 163 D MPV 7.7 Neut % (Auto) 94.2 H Lymph % (Auto) 4.8 L [place] % (Auto) 0.4 Eos % (Auto) 0.4 Baso % (Auto) 0.2 Neut # (Auto) 4.0 Lymph # (Auto) 0.2 L [place] # (Auto) 0.0 Eos # (Auto) 0.0 Baso # (Auto) 0.0 WBC Differential . Differential Comment Auto diff final PT 10.8 INR 1.1 APTT 24.7 Sodium 136 Potassium 3.2 L Chloride 99 Carbon Dioxide 28.1 Anion Gap 9 BUN 18 Creatinine 1.46 H Estimated GFR 49 L POC Glucose Random Glucose 91 Lactic Acid Calcium 8.7 Magnesium 1.3 L Total Bilirubin 0.4 AST 23 ALT 18 Alkaline Phosphatase 128 H Total Protein 8.0 D Albumin 3.4 Lipase 51 L Urine Color Urine Clarity Urine pH Ur Specific [place] Urine Protein Urine Glucose (UA) Urine Ketones Urine Occult Blood Urine Nitrate Urine Bilirubin Urine Urobilinogen Ur Leukocyte Esterase Urine RBC Urine WBC Urine Mucus Micro UA Comment Ur Microscopic Review Urine Culture Comments Urine Opiates Screen Ur Barbiturates Screen Ur Amphetamines Screen U Benzodiazepines Scrn Urine Cocaine Screen U Cannabinoids Screen 11/02/17 11/02/17 11/02/17 21:30 23:00 23:00 WBC RBC Hgb Hct MCV MCH MCHC RDW Plt Count MPV Neut % (Auto) Lymph % (Auto) [place] % (Auto) Eos % (Auto) Baso % (Auto) Neut # (Auto) Lymph # (Auto) [place] # (Auto) Eos # (Auto) Baso # (Auto) WBC Differential Differential Comment PT INR APTT Sodium Potassium Chloride Carbon Dioxide Anion Gap BUN Creatinine Estimated GFR POC Glucose Random Glucose Lactic Acid 2.1 H Calcium Magnesium Total Bilirubin AST ALT Alkaline Phosphatase Total Protein Albumin Lipase Urine Color Yellow Urine Clarity Hazy H Urine pH 5.0 Ur Specific [place] 1.015 Urine Protein 30 H Urine Glucose (UA) Negative Urine Ketones Negative Urine Occult Blood Small H Urine Nitrate Negative Urine Bilirubin Negative Urine Urobilinogen Less than 2 Ur Leukocyte Esterase Negative Urine RBC 1 Urine WBC 3 Urine Mucus Few H Micro UA Comment Culture not ind Ur Microscopic Review Not Reportable Urine Culture Comments Culture not ind Urine Opiates Screen Pos H Ur Barbiturates Screen Neg Ur Amphetamines Screen Neg U Benzodiazepines Scrn Neg Urine Cocaine Screen Pos H U Cannabinoids Screen Neg 11/03/17 11/03/17 00:15 02:06 WBC RBC Hgb Hct MCV MCH MCHC RDW Plt Count MPV Neut % (Auto) Lymph % (Auto) [place] % (Auto) Eos % (Auto) Baso % (Auto) Neut # (Auto) Lymph # (Auto) [place] # (Auto) Eos # (Auto) Baso # (Auto) WBC Differential Differential Comment PT INR APTT Sodium Potassium Chloride Carbon Dioxide Anion Gap BUN Creatinine Estimated GFR POC Glucose 107 Random Glucose Lactic Acid 1.1 Calcium Magnesium Total Bilirubin AST ALT Alkaline Phosphatase Total Protein Albumin Lipase Urine Color Urine Clarity Urine pH Ur Specific [place] Urine Protein Urine Glucose (UA) Urine Ketones Urine Occult Blood Urine Nitrate Urine Bilirubin Urine Urobilinogen Ur Leukocyte Esterase Urine RBC Urine WBC Urine Mucus Micro UA Comment Ur Microscopic Review Urine Culture Comments Urine Opiates Screen Ur Barbiturates Screen Ur Amphetamines Screen U Benzodiazepines Scrn Urine Cocaine Screen U Cannabinoids Screen - Imaging Impressions Chest X-Ray 11/02/17 21:11 CONCLUSION: 1. No acute cardiopulmonary disease. 2. Right-sided PICC line has its tip in superior vena cava. Assessment and Plan - Plan 57-year-old male with a past medical history significant for IV drug abuse, osteomyelitis with PICC line undergoing vancomycin infusions, COPD, CHF, hypertension presented to the emergency department with complaints of pain "all over his body" and fever. He is homeless and reports was unable to go to infusion center for the past 5 days secondary to weakness. Sepsis/osteomyelitis Patient with elevated lactic acid, fever, tachycardia and left shift Recently diagnosed with osteomyelitis and discharged on 6 weeks of IV vancomycin -Noncompliant with IV vancomycin 5 days prior to admission. -Repeat blood cultures obtained -Continue vancomycin and Zosyn for broad-spectrum coverage -Consult infectious disease for further recommendations, appreciate assistance -Obtain echo given patient's IV drug use history. Diabetes mellitus -Regular diet, insulin sliding scale with coverage as needed, blood sugar stable. Hypertension/hyperlipidemia/CHF -Hold off on blood pressure medications given hypotension, monitor for fluid overload. Hepatitis C/cirrhosis, chronic -Liver enzymes stable on admission. Hypokalemia/hypomagnesemia -s/p placement, now stable -Monitor BMP Chronic methadone use -Dose verified by nurse with methadone clinic and restarted. 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
--- NOTE | 2017-11-03 09:55 | ECG ---
Date Performed: 11/02/2017 Time Performed: 22:02:11 PTAGE: 57 years EKG: Sinus rhythm NORMAL ECG PREVIOUS TRACING : 09/30/2017 08.38 DOCTOR: Luis Cruz Interpretating Date/Time 11/03/2017 09:53:58
[2017-11-03] MEDS ORDERED: Methadone 10 MG Tablet PO ONE (11:37)
[2017-11-03] MEDS ORDERED: Naloxone Inj 0.4 MG/ML Vial IV.PUSH PRN (11:38)
[2017-11-03] MEDS ORDERED: Vancomycin Inj 1,500 MG in Sodium Chlor 0.9% Inj 500 ML IV.SIG SCH (12:00)
[2017-11-03 12:56] LABS: Calcium 7.6 mg/dL (8.5-10.1); Carbon Dioxide 18.4 meq/L (21.0-32.0); Potassium 4.6 meq/L (3.5-5.1)
[2017-11-03 16:58] LABS: Baso % (Auto) 0.1 % (0.0-2.0); Eos % (Auto) 0.2 % (0.0-4.0); Hematocrit 28.6 % (39.0-51.0); Hemoglobin 9.2 gm/dL (13.0-17.0); Lymph # (Auto) 1.8 th/mm3 (1.0-4.8); Mean Corpuscular HGB Conc 32.3 % (32.0-36.0); Mean Corpuscular Hemoglobin 29.7 pg (27.0-34.0); Mean Corpuscular Volume 91.9 fL (80.0-100.0); Mean Platelet Volume 8.7 fL (7.0-11.0); Mono # (Auto) 1.2 th/mm3 (0.0-0.9); Mono % (Auto) 5.8 % (0.0-8.0); Neut # (Auto) 16.8 th/mm3 (1.8-7.7); Neut % (Auto) 84.9 % (16.0-70.0); Platelet Count 122 th/mm3 (150-450); Red Blood Count 3.11 mil/mm3 (4.50-5.90); Red Cell Distribution Width 16.4 % (11.6-17.2); White Blood Count 19.8 th/mm3 (4.0-11.0)
--- NOTE | 2017-11-03 19:05 | P.CONID ---
History of Present Illness Service: ID Consult date: 11/03/17 Requesting Physician: Leila Ayala Reason for Consult: osteomyelitis Primary Care Provider: UNKNOWN Family Provider: No Primary Care Physician History of Present Illness: 57 yo male with L foot osteomyelitis (MRSA, Acinetobacter), recent Acinetobacter sepsis active IVDU He missed 5 days of vanco infusion 2/2 logistic issues presented with malaise, fever Temps 104 F on prtsentation, WBC 19K co fever, chills blood clx negative @ 1 day Lactic acidosis, DANILO ( creatinine 1.76) Also experinces difficulty voiding Review of Systems All other systems reviewed negative except as stated in HPI PMFSH - History History Provided By: Patient - Medical History Medical History: Medical History (Last Reviewed 11/03/17 @ 18:58 by Vida Will MD) Depression (Chronic) Hyperlipidemia (Chronic) Hepatitis C (Chronic) Cirrhosis of liver (Chronic) COPD (chronic obstructive pulmonary disease) (Chronic) CHF (congestive heart failure) (Chronic) Hypertension (Chronic) Diabetes (Chronic) Osteomyelitis due to secondary diabetes (Chronic) History of amputation of toe Chronic pain Chronic, continuous use of opioids Hx MRSA infection Tobacco abuse Amputated toe of left foot (Resolved) History of complete ray amputation of fifth toe of left foot History of complete ray amputation of second toe of left foot Hip fracture (Inactive) Hip fracture (Inactive) - Surgical History Surgical History: Surgical History (Last Reviewed 11/03/17 @ 18:58 by Vida Will MD) H/O hernia repair (Resolved) H/O hemorrhoidectomy (Resolved) H/O left inguinal hernia repair Hx of tonsillectomy (Resolved) - Family History Family History: Family History (Last Reviewed 11/03/17 @ 18:58 by Vida Will MD) Father [place] (myocardial infarction) Asthma - Tobacco History Second Hand Smoke Exposure: Yes Tobacco Use In Past 30 Days: Yes Smoking Status: Current every day smoker Tobacco Type: Cigarettes Packs Per Day: 1 Years Smoked: 48 - Alcohol History How Often Do You Have a Drink Containing Alcohol: Never - Substance Use History Substance History: Active Abuse - Substance Use Type Opiates Status: Active Route Used: By Mouth Heroin Status: Active Route Used: Intravenously - Travel History Recent Travel in the [place] Within the Last 8 Weeks: No Recent Travel Out of the Country Within the Last 8 Weeks: No - Immunization History Tetanus Immunization: Unsure Hx Influenza Vaccine This Season: No Medications and Allergies Active Medications: Active Medications Acetaminophen (Tylenol) 650 mg PO Q4H PRN PRN Reason: Temp > 100.4 Al Hydroxide/Mg Hydroxide (Milk Of Magnesia Liq) 30 ml PO Q12H PRN PRN Reason: Mild Constipation Bisacodyl (Dulcolax Supp) 10 mg RECTAL DAILY PRN PRN Reason: SEVERE CONSITIPATION Dextrose (D50w Vial) 50 ml IV.PUSH UNSCH PRN PRN Reason: PER HYPOGLYCEMIA PROTOCOL Glucagon (Glucagon Inj) 1 mg OTHER PRN PRN PRN Reason: for Hypoglycemia Protocol Sodium Chloride (Ns Inj) 1,000 mls @ 0 mls/hr IV.SIG .Q0M LEON Last Infusion: 11/02/17 23:14 Dose: Infused Sodium Chloride (Ns Inj) 1,000 mls @ 0 mls/hr IV.SIG .Q0M LEON Last Infusion: 11/03/17 00:28 Dose: Infused Sodium Chloride (Ns Inj) 1,000 mls @ 70 mls/hr IV.CONT .[id number] LEON Last Admin: 11/03/17 15:28 Dose: 70 mls/hr Piperacillin/Tazobactam/Dextrose (Zosyn 3.375 Gm Premix) 50 mls @ 100 mls/hr IV.SIG Q6H LEON Last Infusion: 11/03/17 17:09 Dose: Infused Sodium Chloride (Ns Inj) 1,000 mls @ 0 mls/hr IV.SIG BOLUS LEON Last Infusion: 11/03/17 06:34 Dose: Infused Sodium Chloride (Ns Inj) 1,000 mls @ 0 mls/hr IV.SIG BOLUS LEON Last Infusion: 11/03/17 13:25 Dose: Infused Vancomycin HCl 1,500 mg/ (Sodium Chloride) 515 mls @ 250 mls/hr IV.SIG Q18H LEON Last Infusion: 11/03/17 15:34 Dose: Infused Insulin Aspart (Novolog Insulin Correction[employer] Sugar Inj) 0 unit SQ ACHS AND 3AM LEON; Protocol Last Admin: 11/03/17 17:45 Dose: Not Given Lactulose (Lactulose Liq) 30 ml PO DAILY PRN PRN Reason: SEVERE CONSITIPATION Methadone HCl (Dolophine) 200 mg PO DAILY LEON Miscellaneous Information (Misc Pharmacy Ordered Lab Info) 0 each OTHER ONCE ONE Stop: 11/04/17 23:46 Naloxone HCl (Narcan Inj) 0.4 mg IV.PUSH Q2M PRN PRN Reason: Opioid Overdose Ondansetron HCl (Zofran Inj) 4 mg IV.PUSH Q6H PRN PRN Reason: NAUSEA OR VOMITING Pharmacy Profile Note (Vancomycin Consult Pharmacy) 1 each OTHER UNSCH PRN PRN Reason: Pharmacy to dose Senna/Docusate Sodium (Veena-Colace) 1 tab PO BID [facility] Last Admin: 11/03/17 08:57 Dose: Not Given Sennosides (Senokot) 17.2 mg PO Q12H PRN PRN Reason: Moderate Constipation Allergies Allergy/AdvReac Type Severity Reaction Status Date / Time codeine AdvReac Severe NAUSEA Verified 11/02/17 21:19 Home Medications Medication Instructions Recorded Confirmed Type amlodipine 5 mg PO DAILY 08/28/17 10/27/17 History metformin 500 mg PO BIDPC 08/28/17 10/27/17 History methadone 200 mg PO DAILY 08/28/17 10/27/17 History ceftriaxone 2 g IV Q24H 10/21/17 10/27/17 History vancomycin in 0.9 % sodium chl 1.5 g IV Q24H 10/21/17 10/27/17 History Exam Vital signs: Vital Signs 11/02/17 21:06 11/02/17 21:34 11/02/17 23:01 Temperature 104.2 F H 101.6 F H Pulse Rate 104 H 98 H Respiratory Rate 28 H 28 H Blood Pressure 141/93 H 141/95 H Pulse Oximetry 98 99 11/03/17 00:29 11/03/17 02:43 11/03/17 04:00 Temperature 97.9 F 97.5 F L Pulse Rate 78 79 60 Respiratory Rate 20 17 19 Blood Pressure 95/65 L 93/54 L 78/54 L Pulse Oximetry 96 94 L 11/03/17 04:15 11/03/17 04:31 11/03/17 08:00 Temperature 97.5 F L Pulse Rate 55 L Respiratory Rate 18 Blood Pressure 74/46 L 87/55 L 125/90 Pulse Oximetry 96 11/03/17 09:00 11/03/17 12:00 09/05/18 16:00 Temperature 97.5 F L 97.3 F L Pulse Rate 55 L 62 58 L Respiratory Rate 18 18 Blood Pressure 97/55 L 89/51 L Pulse Oximetry 100 95 Intake & Output 11/02/17 11/03/17 11/03/17 18:59 06:59 18:59 Intake Total 5080 / 5080 2900 / 2900 Balance 5080 / 5080 2900 / 2900 Weight 66.9 kg Intake: IV 4600 / 4600 2615 / 2615 NS Inj 1,000 ML @ 70 mls/hr IV. 1000 / 1000 CONT .[id number] LEON Rx#:[id number] Ofirmev Inj 1,000 mg In 100 ml 100 / 100 @ 400 mls/hr IV.SIG ONCE ONE Rx #:[id number] Magnesium Sulfate 1 gm/D5W 100 100 / 100 ml Premix 100 ML @ 100 mls/hr IV.SIG ONCE ONE Rx#:[id number] Zosyn 3.375 GM Premix 50 ML @ 50 / 50 100 / 100 100 mls/hr IV.SIG Q6H LEON Rx#: [id number] Zosyn 4.5 GM Premix 4.5 gm In 100 / 100 100 ml @ 200 mls/hr IV.SIG STAT STA Rx#:[id number] NS Inj 1,000 ML @ Wide Open IV. 4000 / 4000 1000 / 1000 SIG BOLUS LEON Rx#:[id number] Vancomycin Inj 1,000 MG In NS 250 / 250 Inj 250 ML @ 250 mls/hr IV.SIG STAT STA Rx#:[id number] Vancomycin Inj 1,500 MG In NS 515 / 515 Inj 500 ML @ 250 mls/hr IV.SIG Q18H [facility] Rx#:[id number] Oral 480 / 480 Tube Feeding 285 / 285 - Constitutional no acute distress, average body habitus, disheveled - Routine HEENT Exam Head: Present: normocephalic, atraumatic Eye: Present: EOMI, PERRL ENT: Present: mucous membranes moist, oropharynx clear Comments: poor dentition - Routine Neck Exam Present: supple, full ROM - Routine Respiratory Exam Present: decreased breath sounds, CTA bilaterally - Routine Cardiovascular Exam Present: RRR, S1, S2 Comments: no murmurs tus or gallops - Routine Abdominal Exam Present: soft Comments: not tender not distended no hepatosplenomegaly, no masses - Routine Extremities Exam Present: normal capillary refill Comments: no cyanosis, no clubbing edema L foot incisions are healing well approximateted no drainage no redness no swelling - Routine Skin Exam Present: dry, warm - Routine Neurological Exam Present: alert, oriented X3, CN II-XII intact, moving all extremities, vision grossly intact, hearing grossly intact, normal speech - Routine Psychiatric Exam Present: normal affect, normal thought process, cooperative - Additional findings Additional findings: PICC in place RUE - no swelling or redness around Results - Labs CBC & Chem 7: 11/03/17 14:58 11/03/17 11:55 Labs: Laboratory Results - last 24 hr 11/02/17 11/02/17 11/02/17 21:30 21:30 21:30 WBC 4.2 RBC 4.43 L Hgb 13.3 Hct 39.7 MCV 89.6 MCH 30.0 MCHC 33.4 RDW 15.8 Plt Count 163 D MPV 7.7 Neut % (Auto) 94.2 H Lymph % (Auto) 4.8 L [place] % (Auto) 0.4 Eos % (Auto) 0.4 Baso % (Auto) 0.2 Neut # (Auto) 4.0 Lymph # (Auto) 0.2 L [place] # (Auto) 0.0 Eos # (Auto) 0.0 Baso # (Auto) 0.0 WBC Differential . Differential Comment Auto diff final PT 10.8 INR 1.1 APTT 24.7 Sodium 136 Potassium 3.2 L Chloride 99 Carbon Dioxide 28.1 Anion Gap 9 BUN 18 Creatinine 1.46 H Estimated GFR 49 L POC Glucose Random Glucose 91 Lactic Acid Calcium 8.7 Magnesium 1.3 L Total Bilirubin 0.4 AST 23 ALT 18 Alkaline Phosphatase 128 H Total Protein 8.0 D Albumin 3.4 Lipase 51 L Urine Color Urine Clarity Urine pH Ur Specific [place] Urine Protein Urine Glucose (UA) Urine Ketones Urine Occult Blood Urine Nitrate Urine Bilirubin Urine Urobilinogen Ur Leukocyte Esterase Urine RBC Urine WBC Urine Mucus Micro UA Comment Ur Microscopic Review Urine Culture Comments Urine Opiates Screen Ur Barbiturates Screen Ur Amphetamines Screen U Benzodiazepines Scrn Urine Cocaine Screen U Cannabinoids Screen 11/02/17 11/02/17 11/02/17 21:30 23:00 23:00 WBC RBC Hgb Hct MCV MCH MCHC RDW Plt Count MPV Neut % (Auto) Lymph % (Auto) [place] % (Auto) Eos % (Auto) Baso % (Auto) Neut # (Auto) Lymph # (Auto) [place] # (Auto) Eos # (Auto) Baso # (Auto) WBC Differential Differential Comment PT INR APTT Sodium Potassium Chloride Carbon Dioxide Anion Gap BUN Creatinine Estimated GFR POC Glucose Random Glucose Lactic Acid 2.1 H Calcium Magnesium Total Bilirubin AST ALT Alkaline Phosphatase Total Protein Albumin Lipase Urine Color Yellow Urine Clarity Hazy H Urine pH 5.0 Ur Specific [place] 1.015 Urine Protein 30 H Urine Glucose (UA) Negative Urine Ketones Negative Urine Occult Blood Small H Urine Nitrate Negative Urine Bilirubin Negative Urine Urobilinogen Less than 2 Ur Leukocyte Esterase Negative Urine RBC 1 Urine WBC 3 Urine Mucus Few H Micro UA Comment Culture not ind Ur Microscopic Review Not Reportable Urine Culture Comments Culture not ind Urine Opiates Screen Pos H Ur Barbiturates Screen Neg Ur Amphetamines Screen Neg U Benzodiazepines Scrn Neg Urine Cocaine Screen Pos H U Cannabinoids Screen Neg 11/03/17 11/03/17 11/03/17 00:15 02:06 11:55 WBC RBC Hgb Hct MCV MCH MCHC RDW Plt Count MPV Neut % (Auto) Lymph % (Auto) [place] % (Auto) Eos % (Auto) Baso % (Auto) Neut # (Auto) Lymph # (Auto) [place] # (Auto) Eos # (Auto) Baso # (Auto) WBC Differential Differential Comment PT INR APTT Sodium 139 Potassium 4.6 D Chloride 111 H D Carbon Dioxide 18.4 L D Anion Gap 10 BUN 22 H Creatinine 1.76 H Estimated GFR 40 L POC Glucose 107 Random Glucose 101 Lactic Acid 1.1 Calcium 7.6 L D Magnesium Total Bilirubin AST ALT Alkaline Phosphatase Total Protein Albumin Lipase Urine Color Urine Clarity Urine pH Ur Specific [place] Urine Protein Urine Glucose (UA) Urine Ketones Urine Occult Blood Urine Nitrate Urine Bilirubin Urine Urobilinogen Ur Leukocyte Esterase Urine RBC Urine WBC Urine Mucus Micro UA Comment Ur Microscopic Review Urine Culture Comments Urine Opiates Screen Ur Barbiturates Screen Ur Amphetamines Screen U Benzodiazepines Scrn Urine Cocaine Screen U Cannabinoids Screen 11/03/17 14:58 WBC 19.8 H D RBC 3.11 L Hgb 9.2 L D Hct 28.6 L MCV 91.9 MCH 29.7 MCHC 32.3 RDW 16.4 Plt Count 122 L MPV 8.7 Neut % (Auto) 84.9 H Lymph % (Auto) 9.0 [place] % (Auto) 5.8 Eos % (Auto) 0.2 Baso % (Auto) 0.1 Neut # (Auto) 16.8 H Lymph # (Auto) 1.8 [place] # (Auto) 1.2 H Eos # (Auto) 0.0 Baso # (Auto) 0.0 WBC Differential . Differential Comment Auto diff final PT INR APTT Sodium Potassium Chloride Carbon Dioxide Anion Gap BUN Creatinine Estimated GFR POC Glucose Random Glucose Lactic Acid Calcium Magnesium Total Bilirubin AST ALT Alkaline Phosphatase Total Protein Albumin Lipase Urine Color Urine Clarity Urine pH Ur Specific [place] Urine Protein Urine Glucose (UA) Urine Ketones Urine Occult Blood Urine Nitrate Urine Bilirubin Urine Urobilinogen Ur Leukocyte Esterase Urine RBC Urine WBC Urine Mucus Micro UA Comment Ur Microscopic Review Urine Culture Comments Urine Opiates Screen Ur Barbiturates Screen Ur Amphetamines Screen U Benzodiazepines Scrn Urine Cocaine Screen U Cannabinoids Screen - Imaging Impressions Chest X-Ray 11/02/17 21:11 CONCLUSION: 1. No acute cardiopulmonary disease. 2. Right-sided PICC line has its tip in superior vena cava. Assessment and Plan - Plan sepsis IVDU Previously Acinetobacter sepsis L foot osteomyelitis (Acinetobacter, MRSA) - improving. nearly resolved clncally and healing nicely DANILO Urinarty complaints (difficulty voiding); UA negative cont zosyn dc vanco start dapto US kidneys POst void residuals fu blood clx 2 D echo
--- NOTE | 2017-11-03 22:04 | US ---
EXAM DATE: 11/03/2017 8:59 PM EDT AGE/SEX: 57 years / Male INDICATIONS: Increased BUN/Creatinine. CLINICAL DATA: This is the patient's initial encounter. Patient reports that signs and symptoms have been present for 1 day and indicates a pain score of 0/10. MEDICAL/SURGICAL HISTORY: Cirrhosis. Chronic obstructive pulmonary disease. Hepatitis C. Con gestive heart failure. Chronic pain. Depression. Diabetes. Hip fracture. MRSA. Hyperlipidemia. Hypert ension. Osteomyelitis. Tobacco use. Hemorrhoidectomy. Tonsillectomy. Amputated toe on left foot. He rnia repair. [place] [facility] [place], 05/21/2017. . MEASUREMENTS: Right Kidney:__10.8 x 4.5 x 4.4 cm Left Kidney:__10.7 x 4.6 x 5.0 cm FINDINGS: Right Kidney: Normal echotexture and cortical thickness. No mass or hydronephrosis. Left Kidney: Normal echotexture and cortical thickness. No mass or hydronephrosis. Bladder: Within normal limits given the degree of distension. Other: None. CONCLUSION: 1. Negative renal sonogram. Electronically signed by: Bruce Silveira MD 11/03/2017 10:03 PM EDT
[2017-11-03] MEDS: DAPTOmycin Inj 500 MG in Sodium Chlor 0.9% Inj 100 ML IV.SIG SCH (22:32)
[2017-11-04] MEDS: Piperacil/Tazo 3.375 GM Premix 50 ML IV.SIG SCH ×5 (04:05→21:51)
[2017-11-04] MEDS: Insulin NovoLOG Aspart Correctional Sugar Inj SQ SCH ×5 (04:08→21:57)
[2017-11-04] MEDS: Sod Chloride 0.9% Inj 1,000 ML IV.CONT SCH ×2 (04:24→08:45)
[2017-11-04 04:50] LABS: Baso % (Auto) 0.3 % (0.0-2.0); Eos # (Auto) 0.2 th/mm3 (0.0-0.4); Eos % (Auto) 1.3 % (0.0-4.0); Hematocrit 28.2 % (39.0-51.0); Hemoglobin 9.2 gm/dL (13.0-17.0); Lymph % (Auto) 17.8 % (9.0-44.0); Mean Corpuscular HGB Conc 32.7 % (32.0-36.0); Mean Corpuscular Hemoglobin 29.9 pg (27.0-34.0); Mean Corpuscular Volume 91.2 fL (80.0-100.0); Mean Platelet Volume 8.3 fL (7.0-11.0); Mono # (Auto) 1.7 th/mm3 (0.0-0.9); Neut % (Auto) 70.6 % (16.0-70.0); Platelet Count 114 th/mm3 (150-450); Red Cell Distribution Width 16.3 % (11.6-17.2); White Blood Count 16.9 th/mm3 (4.0-11.0)
[2017-11-04 05:20] LABS: Alanine Aminotransferase 15 U/L (12-78); Albumin 2.4 g/dL (3.4-5.0); Alkaline Phosphatase 68 U/L (45-117); Anion Gap 7 meq/L (5-15); Aspartate Aminotransferase 14 U/L (15-37); Blood Urea Nitrogen 26 mg/dL (7-18); Calcium 8.2 mg/dL (8.5-10.1); Carbon Dioxide 23.3 meq/L (21.0-32.0); Chloride 112 meq/L (98-107); Glomerular Filtration Rate 45 mL/min (>89); Glucose,Random 112 mg/dL (74-106); Magnesium 1.9 mg/dL (1.5-2.5); Potassium 4.2 meq/L (3.5-5.1); Sodium 142 meq/L (136-145); Total Protein 5.9 g/dL (6.4-8.2)
[2017-11-04] MEDS: Senna/Docusate Sodium 8.6/50 MG Tablet PO SCH ×2 (08:39→21:58)
[2017-11-04] MEDS: Methadone 10 MG Tablet PO SCH (08:39)
--- NOTE | 2017-11-04 11:58 | P.PN ---
Subjective Interval history: Follow-up visit for osteomyelitis of left foot with ongoing IV vancomycin infusions. Patient is seen and examined sitting up in bed in no acute distress. He denies any nausea, vomiting, fevers, chills, cough, shortness of breath or chest pain. He reports he feeling better and does not have any complaints at the current moment. Physical Exam Vital signs: Vital Signs 11/03/17 12:00 11/03/17 16:00 11/03/17 20:00 Temperature 97.5 F L 97.3 F L 98.0 F Pulse Rate 62 58 L 50 L Respiratory Rate 18 18 20 Blood Pressure 97/55 L 89/51 L 90/55 L Pulse Oximetry 100 95 99 11/04/17 00:00 11/04/17 01:13 11/04/17 04:00 Temperature 97.2 F L 97.6 F Pulse Rate 52 L 62 Respiratory Rate 18 18 20 Blood Pressure 93/50 L 118/58 L Pulse Oximetry 99 97 11/04/17 08:00 Temperature 97.8 F Pulse Rate 62 Respiratory Rate 17 Blood Pressure 165/93 H Pulse Oximetry 98 Intake & Output 11/03/17 11/04/17 11/04/17 18:59 06:59 18:59 Intake Total 2900 / 2900 2000 / 2000 50 / 50 Output Total 1500 / 1500 475 / 475 Balance 1400 / 1400 1525 / 1525 50 / 50 Weight 69.7 kg Intake: IV 2615 / 2615 1200 / 1200 50 / 50 NS Inj 1,000 ML @ 70 mls/hr IV. 1000 / 1000 1000 / 1000 CONT .[id number] LEON Rx#:[id number] Cubicin Inj 500 MG In NS Inj 100 / 100 100 ML @ 200 mls/hr IV.SIG Q24H LEON Rx#:[id number] Zosyn 3.375 GM Premix 50 ML @ 100 / 100 100 / 100 50 / 50 100 mls/hr IV.SIG Q6H LEON Rx#: [id number] NS Inj 1,000 ML @ Wide Open IV. 1000 / 1000 SIG BOLUS LEON Rx#:[id number] Vancomycin Inj 1,500 MG In NS 515 / 515 Inj 500 ML @ 250 mls/hr IV.SIG Q18H LEON Rx#:[id number] Oral 800 / 800 Tube Feeding 285 / 285 Output: Urine 1500 / 1500 475 / 475 Other: # Voids 2 Date of Last Bowel Movement 11/03/17 Narrative: GENERAL: Well nourished, well developed male resting in bed appears to be cold with chills, in no acute distress. SKIN: Warm and dry. HEAD: Atraumatic. Normocephalic. EYES: Pupils equal and round. No scleral icterus. No injection or drainage. ENT: No nasal bleeding or discharge. Mucous membranes pink and moist. NECK: Trachea midline. No JVD. CARDIOVASCULAR: Regular rate and rhythm. RESPIRATORY: No accessory muscle use. Clear to auscultation. Breath sounds equal bilaterally. GASTROINTESTINAL: Abdomen soft, non-tender, nondistended. + bowel sounds. MUSCULOSKELETAL: Extremities without clubbing, cyanosis, or edema. No obvious deformities. Left foot lateral wound with less erythema now dry, right foot with dry drainage between first and second toe, appears dry and improved. NEUROLOGICAL: Awake and alert, oriented x3. No obvious cranial nerve deficits. Motor grossly within normal limits. Five out of 5 muscle strength in the arms and legs. Normal speech. PSYCHIATRIC: Appropriate mood and affect; insight and judgment normal. Results - Labs CBC & Chem 7: 11/04/17 04:23 11/04/17 04:23 Laboratory Results - last 24 hr 11/03/17 11/03/17 11/03/17 09:03 11:55 12:07 WBC RBC Hgb Hct MCV MCH MCHC RDW Plt Count MPV Neut % (Auto) Lymph % (Auto) Rankin % (Auto) Eos % (Auto) Baso % (Auto) Neut # (Auto) Lymph # (Auto) Rankin # (Auto) Eos # (Auto) Baso # (Auto) WBC Differential Differential Comment Sodium 139 Potassium 4.6 D Chloride 111 H D Carbon Dioxide 18.4 L D Anion Gap 10 BUN 22 H Creatinine 1.76 H Estimated GFR 40 L POC Glucose 316 H 113 H Random Glucose 101 Calcium 7.6 L D Magnesium Total Bilirubin AST ALT Alkaline Phosphatase Total Protein Albumin 11/03/17 11/03/17 11/04/17 14:58 22:32 04:07 WBC 19.8 H D RBC 3.11 L Hgb 9.2 L D Hct 28.6 L MCV 91.9 MCH 29.7 MCHC 32.3 RDW 16.4 Plt Count 122 L MPV 8.7 Neut % (Auto) 84.9 H Lymph % (Auto) 9.0 Rankin % (Auto) 5.8 Eos % (Auto) 0.2 Baso % (Auto) 0.1 Neut # (Auto) 16.8 H Lymph # (Auto) 1.8 Rankin # (Auto) 1.2 H Eos # (Auto) 0.0 Baso # (Auto) 0.0 WBC Differential . Differential Comment Auto diff final Sodium Potassium Chloride Carbon Dioxide Anion Gap BUN Creatinine Estimated GFR POC Glucose 160 H 98 Random Glucose Calcium Magnesium Total Bilirubin AST ALT Alkaline Phosphatase Total Protein Albumin 11/04/17 11/04/17 11/04/17 04:23 04:23 07:27 WBC 16.9 H RBC 3.10 L Hgb 9.2 L Hct 28.2 L MCV 91.2 MCH 29.9 MCHC 32.7 RDW 16.3 Plt Count 114 L MPV 8.3 Neut % (Auto) 70.6 H Lymph % (Auto) 17.8 Rankin % (Auto) 10.0 H Eos % (Auto) 1.3 Baso % (Auto) 0.3 Neut # (Auto) 12.0 H Lymph # (Auto) 3.0 Rankin # (Auto) 1.7 H Eos # (Auto) 0.2 Baso # (Auto) 0.0 WBC Differential . Differential Comment Auto diff final Sodium 142 Potassium 4.2 Chloride 112 H Carbon Dioxide 23.3 Anion Gap 7 BUN 26 H Creatinine 1.58 H Estimated GFR 45 L POC Glucose 138 H Random Glucose 112 H Calcium 8.2 L Magnesium 1.9 D Total Bilirubin 0.2 AST 14 L ALT 15 Alkaline Phosphatase 68 Total Protein 5.9 L D Albumin 2.4 L D Microbiology 11/03/17 00:15 Blood - Line Aerobic Blood Culture - Preliminary No growth in 1 day 11/03/17 00:15 Blood - Line Anaerobic Blood Culture - Preliminary No growth in 1 day 11/02/17 21:20 Blood - Peripheral Aerobic Blood Culture - Preliminary No growth in 2 days 11/02/17 21:20 Blood - Peripheral Anaerobic Blood Culture - Preliminary No growth in 2 days 11/02/17 21:30 Blood - Peripheral Aerobic Blood Culture - Preliminary No growth in 2 days 11/02/17 21:30 Blood - Peripheral Anaerobic Blood Culture - Preliminary No growth in 2 days - Imaging Impressions Abdomen/Bladder Ultrasound 11/03/17 00:00 CONCLUSION: 1. Negative renal sonogram. Assessment and Plan - Plan 57-year-old male with a past medical history significant for IV drug abuse, osteomyelitis with PICC line undergoing vancomycin infusions, COPD, CHF, hypertension presented to the emergency department with complaints of pain "all over his body" and fever. He is homeless and reports was unable to go to infusion center for the past 5 days secondary to weakness. Sepsis/osteomyelitis Patient with elevated lactic acid, fever, tachycardia and left shift Recently diagnosed with osteomyelitis and discharged on 6 weeks of IV vancomycin -Noncompliant with IV vancomycin 5 days prior to admission. -Repeat blood cultures obtained -Continue vancomycin and Zosyn for broad-spectrum coverage -Consult infectious disease for further recommendations, appreciate assistance -Echo with EF 50-55%, wall thickness upper limits of normal, left ventricle size normal, no definite regional wall abnormalities. Aortic valve not well visualized, possible slight leaflet sclerosis, trace to mild tricuspid valve regurgitation. -Sensitive discussion with patient regarding his noncompliance. Diabetes mellitus -Regular diet, insulin sliding scale with coverage as needed, blood sugar stable. Hypertension/hyperlipidemia/CHF -Hold off on blood pressure medications given hypotension, monitor for fluid overload. Hepatitis C/cirrhosis, chronic -Liver enzymes stable on admission. Hypokalemia/hypomagnesemia -s/p placement, now stable -Monitor BMP Chronic methadone use -Dose verified by nurse with methadone clinic and restarted. DANILO -Patient provided with fluid boluses, patient tolerating p.o. well, renal function improved. Discontinue IV fluids, encourage oral hydration. -Pharmacy following for vancomycin dosing, avoid nephrotoxins -Continue monitoring renal function DVT prophylaxis-SCDs Discussed Condition With: Patient and RN. Discharge Planning: Will need ID antibiotic recommendations prior to discharge.
--- NOTE | 2017-11-04 16:25 | ECHRPT ---
Indication: Acute and subacute endocarditis, unspecified CONCLUSIONS Left ventricular systolic function is normal with an estimated ejection fraction in the range of 50- 55%. Wall thickness is measured at the upper limits of normal. Normal left ventricular size. No defini te regional wall motion abnormalities. The aortic valve is not well visualized. Possible slight leaflet sclerosis. There is trace to mild tricuspid valve regurgitation. The estimated pulmonary arterial pressure is 35 mm. BP: / HR: 48 Rhythm: Sinus MEASUREMENTS (Male / Female) Normal Values Technical Quality:Good 2D ECHO LV Diastolic Diameter PLAX 4.2 cm 4.2 - 5.9 / 3.9 - 5.3 cm LV Systolic Diameter PLAX 3.3 cm IVS Diastolic Thickness 1.0 cm 0.6 - 1.0 / 0.6 - 0.9 cm LVPW Diastolic Thickness 1.0 cm 0.6 - 1.0 / 0.6 - 0.9 cm LV Relative Wall Thickness 0.5 DOPPLER AV Peak Velocity 142.0 cm/s AV Peak Gradient 8.1 mmHg LVOT Peak Velocity 101.0 cm/s LVOT Peak Gradient 4.1 mmHg MR Peak Velocity 354.0 cm/s MR Peak Gradient 50.1 mmHg TR Peak Velocity 267.0 cm/s TR Peak Gradient 28.5 mmHg Right Atrial Pressure 10.0 mmHg Pulmonary Artery Systolic Pressu 38.5 mmHg Right Ventricular Systolic Press 38.5 mmHg FINDINGS LEFT VENTRICLE Left ventricular systolic function is normal with an estimated ejection fraction in the range of 50- 55%. Wall thickness is measured at the upper limits of normal. Normal left ventricular size. No defini te regional wall motion abnormalities. RIGHT VENTRICLE Normal right ventricular size and systolic function. LEFT ATRIUM The left atrial size is normal. RIGHT ATRIUM The right atrial size is normal. ATRIAL SEPTUM Normal atrial septal thickness without atrial level shunting by limited color doppler interrogation. AORTA The aortic root and proximal ascending aorta are normal in size on limited imaging. MITRAL VALVE Structurally normal mitral valve. No mitral valve stenosis or regurgitation. AORTIC VALVE The aortic valve is not well visualized. Possible slight leaflet sclerosis. TRICUSPID VALVE There is trace to mild tricuspid valve regurgitation. The estimated pulmonary arterial pressure is 35 mmHg. PULMONARY VALVE No pulmonary valve regurgitation or stenosis. VESSELS The inferior vena cava is normal in size. PERICARDIUM No pericardial effusion. Igor Mayberry MD (Electronically Signed) Final Date:04 November 2017 16:24
[2017-11-04] MEDS: DAPTOmycin Inj 500 MG in Sodium Chlor 0.9% Inj 100 ML IV.SIG SCH (21:51)
[2017-11-04] MEDS ORDERED: Pharmacy Ordered Lab Info OTHER ONE (23:45)
[2017-11-05] MEDS: Piperacil/Tazo 3.375 GM Premix 50 ML IV.SIG SCH ×4 (04:33→21:51)
[2017-11-05] MEDS: Insulin NovoLOG Aspart Correctional Sugar Inj SQ SCH ×5 (04:38→21:56)
[2017-11-05] MEDS: amLODIPine 5 MG Tablet PO SCH ×3 (08:09→10:32)
[2017-11-05] MEDS: Methadone 10 MG Tablet PO SCH (09:01)
[2017-11-05] MEDS: Senna/Docusate Sodium 8.6/50 MG Tablet PO SCH ×2 (09:02→21:59)
--- NOTE | 2017-11-05 10:27 | P.PN ---
Subjective Interval history: Follow-up visit for osteomyelitis and back. Patient seen and examined resting in bed comfortably appears to be in no acute distress. He denies any fevers, chills, nausea, vomiting, diarrhea, cough or shortness of breath. Discussed findings on echo. Physical Exam Vital signs: Vital Signs 11/04/17 12:00 11/04/17 20:00 11/05/17 00:00 Temperature 97.7 F 97.9 F 97.6 F Pulse Rate 53 L 55 L 53 L Respiratory Rate 17 16 16 Blood Pressure 150/74 H 167/79 H 184/91 H Pulse Oximetry 95 98 98 11/05/17 04:00 11/05/17 04:49 Temperature 97.5 F L Pulse Rate 51 L Respiratory Rate 16 Blood Pressure 187/100 H 182/86 H Pulse Oximetry 97 Intake & Output 11/04/17 11/05/17 11/05/17 18:59 06:59 18:59 Intake Total 100 / 100 150 / 150 50 / 50 Output Total 750 / 750 850 / 850 Balance -650 / -650 -700 / -700 50 / 50 Weight 68.8 kg Intake: IV 100 / 100 150 / 150 50 / 50 Cubicin Inj 500 MG In NS Inj 100 / 100 100 ML @ 200 mls/hr IV.SIG Q24H [facility] Rx#:[id number] Zosyn 3.375 GM Premix 50 ML @ 100 / 100 50 / 50 50 / 50 100 mls/hr IV.SIG Q6H [facility]ON Rx#: [id number] Output: Urine 750 / 750 850 / 850 Other: # Voids 2 2 Date of Last Bowel Movement 11/03/17 11/04/17 Narrative: GENERAL: Well nourished, well developed male resting in bed appears to be cold with chills, in no acute distress. SKIN: Warm and dry. HEAD: Atraumatic. Normocephalic. EYES: Pupils equal and round. No scleral icterus. No injection or drainage. ENT: No nasal bleeding or discharge. Mucous membranes pink and moist. NECK: Trachea midline. No JVD. CARDIOVASCULAR: Regular rate and rhythm. RESPIRATORY: No accessory muscle use. Clear to auscultation. Breath sounds equal bilaterally. GASTROINTESTINAL: Abdomen soft, non-tender, nondistended. + bowel sounds. MUSCULOSKELETAL: Extremities without clubbing, cyanosis, or edema. No obvious deformities. Left foot lateral wound dry and intact, right foot wound between first and second toe, appears dry. NEUROLOGICAL: Awake and alert, oriented x3. No obvious cranial nerve deficits. Motor grossly within normal limits. Five out of 5 muscle strength in the arms and legs. Normal speech. PSYCHIATRIC: Appropriate mood and affect; insight and judgment normal. Results - Labs CBC & Chem 7: 11/04/17 04:23 11/04/17 04:23 Laboratory Results - last 24 hr 11/04/17 11/04/17 11/05/17 11:56 21:57 04:36 POC Glucose 134 H 136 H 113 H 11/05/17 08:59 POC Glucose 119 H Microbiology 11/03/17 00:15 Blood - Line Aerobic Blood Culture - Preliminary No growth in 1 day 11/03/17 00:15 Blood - Line Anaerobic Blood Culture - Preliminary No growth in 1 day 11/02/17 21:20 Blood - Peripheral Aerobic Blood Culture - Preliminary No growth in 2 days 11/02/17 21:20 Blood - Peripheral Anaerobic Blood Culture - Preliminary No growth in 2 days 11/02/17 21:30 Blood - Peripheral Aerobic Blood Culture - Preliminary No growth in 2 days 11/02/17 21:30 Blood - Peripheral Anaerobic Blood Culture - Preliminary No growth in 2 days Assessment and Plan - Plan 57-year-old male with a past medical history significant for IV drug abuse, osteomyelitis with PICC line undergoing vancomycin infusions, COPD, CHF, hypertension presented to the emergency department with complaints of pain "all over his body" and fever. He is homeless and reports was unable to go to infusion center for the past 5 days secondary to weakness. Sepsis/osteomyelitis Patient with elevated lactic acid, fever, tachycardia and left shift Recently diagnosed with osteomyelitis and discharged on 6 weeks of IV vancomycin -Noncompliant with IV vancomycin 5 days prior to admission. -Repeat blood cultures obtained no growth to date. -Continue vancomycin and Zosyn for broad-spectrum coverage -Consult infectious disease for further recommendations, appreciate assistance -Echo with EF 50-55%, wall thickness upper limits of normal, left ventricle size normal, no definite regional wall abnormalities. Aortic valve not well visualized, possible slight leaflet sclerosis, trace to mild tricuspid valve regurgitation. Diabetes mellitus -Regular diet, insulin sliding scale with coverage as needed, blood sugar stable. Hypertension/hyperlipidemia/CHF -Hold off on blood pressure medications given hypotension, monitor for fluid overload. Hepatitis C/cirrhosis, chronic -Liver enzymes stable on admission. Hypokalemia/hypomagnesemia -s/p placement, now stable -Monitor BMP Chronic methadone use -Dose verified by nurse with methadone clinic and restarted. DANILO -Patient provided with fluid boluses, patient tolerating p.o. well, renal function improved. Discontinue IV fluids, encourage oral hydration. -Pharmacy following for vancomycin dosing, avoid nephrotoxins -Recheck BMP tomorrow Hypertension, chronic -Patient previously on lisinopril and Norvasc for BP control. These have been held in light of hypotension on admission -Norvasc resumed this morning, BP continues to be on the elevated side. Hold off on lisinopril due to DANILO. -Start hydralazine 10 mg 3 times daily DVT prophylaxis-subcu heparin Discussed Condition With: Discussed with patient, Dr. Will. Discharge Planning: Will need ID antibiotic recommendations prior to discharge.
[2017-11-05] MEDS: hydrALAZINE 10 MG Tablet PO SCH (18:23)
--- NOTE | 2017-11-05 19:06 | P.PNID ---
Subjective Remarks: not growing anything from the 4 blood clx sets @ 2-3 days No new c/o afebrile Antibiotics: dapto zosyn Allergies/Adverse Reactions: Allergies codeine Adverse Reaction (Severe, Verified 11/02/17 21:19) NAUSEA Objective Vital Signs 11/04/17 20:00 11/05/17 00:00 11/05/17 04:00 Temperature 97.9 F 97.6 F 97.5 F L Pulse Rate 55 L 53 L 51 L Respiratory Rate 16 16 16 Blood Pressure 167/79 H 184/91 H 187/100 H Pulse Oximetry 98 98 97 11/05/17 04:49 11/05/17 08:00 11/05/17 12:00 Temperature 98.2 F 98.0 F Pulse Rate 48 L 49 L Respiratory Rate 18 18 Blood Pressure 182/86 H 183/86 H 175/99 H Pulse Oximetry 98 98 Intake & Output 11/05/17 11/05/17 11/06/17 06:59 18:59 06:59 Intake Total 150 / 150 150 / 150 Output Total 850 / 850 Balance -700 / -700 150 / 150 Weight 68.8 kg Intake: IV 150 / 150 150 / 150 Cubicin Inj 500 MG In NS Inj 100 / 100 100 ML @ 200 mls/hr IV.SIG Q24H [facility]ON Rx#:[id number] Zosyn 3.375 GM Premix 50 ML @ 50 / 50 150 / 150 100 mls/hr IV.SIG Q6H LEON Rx#: [id number] Output: Urine 850 / 850 Other: # Voids 2 Date of Last Bowel Movement 11/04/17 11/03/17 00:15 Blood - Line Aerobic Blood Culture - Preliminary No growth in 2 days 11/03/17 00:15 Blood - Line Anaerobic Blood Culture - Preliminary No growth in 2 days 11/02/17 21:20 Blood - Peripheral Aerobic Blood Culture - Preliminary No growth in 3 days 11/02/17 21:20 Blood - Peripheral Anaerobic Blood Culture - Preliminary No growth in 3 days 11/02/17 21:30 Blood - Peripheral Aerobic Blood Culture - Preliminary No growth in 3 days 11/02/17 21:30 Blood - Peripheral Anaerobic Blood Culture - Preliminary No growth in 3 days Lab - Hematology Results 11/04/17 04:23 WBC 16.9 H RBC 3.10 L Hgb 9.2 L Hct 28.2 L MCV 91.2 MCH 29.9 MCHC 32.7 RDW 16.3 Plt Count 114 L MPV 8.3 Neut % (Auto) 70.6 H Lymph % (Auto) 17.8 Hood % (Auto) 10.0 H Eos % (Auto) 1.3 Baso % (Auto) 0.3 Neut # (Auto) 12.0 H Lymph # (Auto) 3.0 Hood # (Auto) 1.7 H Eos # (Auto) 0.2 Baso # (Auto) 0.0 WBC Differential . Differential Comment Auto diff final Lab - Chemistry Results 11/03/17 11/03/17 11/03/17 09:03 12:07 22:32 Sodium Potassium Chloride Carbon Dioxide Anion Gap BUN Creatinine Estimated GFR POC Glucose 316 H 113 H 160 H Random Glucose Calcium Magnesium Total Bilirubin AST ALT Alkaline Phosphatase Total Protein Albumin 11/04/17 11/04/17 11/04/17 04:07 04:23 07:27 Sodium 142 Potassium 4.2 Chloride 112 H Carbon Dioxide 23.3 Anion Gap 7 BUN 26 H Creatinine 1.58 H Estimated GFR 45 L POC Glucose 98 138 H Random Glucose 112 H Calcium 8.2 L Magnesium 1.9 D Total Bilirubin 0.2 AST 14 L ALT 15 Alkaline Phosphatase 68 Total Protein 5.9 L D Albumin 2.4 L D 11/04/17 11/04/17 11/05/17 11:56 21:57 04:36 Sodium Potassium Chloride Carbon Dioxide Anion Gap BUN Creatinine Estimated GFR POC Glucose 134 H 136 H 113 H Random Glucose Calcium Magnesium Total Bilirubin AST ALT Alkaline Phosphatase Total Protein Albumin 11/05/17 11/05/17 11/05/17 08:59 12:36 16:47 Sodium Potassium Chloride Carbon Dioxide Anion Gap BUN Creatinine Estimated GFR POC Glucose 119 H 83 146 H Random Glucose Calcium Magnesium Total Bilirubin AST ALT Alkaline Phosphatase Total Protein Albumin Imaging: ITS Impressions Chest X-Ray 11/02/17 21:11 CONCLUSION: 1. No acute cardiopulmonary disease. 2. Right-sided PICC line has its tip in superior vena cava. Abdomen/Bladder Ultrasound 11/03/17 00:00 CONCLUSION: 1. Negative renal sonogram. Physical Exam: GENERAL: NAD SKIN: Warm and dry. no rash HEAD: Atraumatic. Normocephalic. EYES: Pupils equal and round. No scleral icterus. No injection or drainage. ENT: No nasal bleeding or discharge. Mucous membranes pink and moist. NECK: Trachea midline. No JVD. CARDIOVASCULAR: Regular rate and rhythm. No murmurs RESPIRATORY: No accessory muscle use. Clear to auscultation. Breath sounds equal bilaterally. GASTROINTESTINAL: Abdomen soft, non-tender, nondistended. Hepatic and splenic margins not palpable. MUSCULOSKELETAL: Extremities without clubbing, cyanosis, or edema. no cyanosis, no clubbing edema L foot incisions are healing well approximateted no drainage no redness no swelling NEUROLOGICAL: Awake and alert. No obvious neurodeficits. PSYCHIATRIC: Appropriate mood and affect; Assessment and Plan - Plan sepsis - bl clx negative -2D echo negative , but aortic valve is not well visualized IVDU Previously Acinetobacter sepsis L foot osteomyelitis (Acinetobacter, MRSA) - improving. nearly resolved clncally and healing nicely DANILO: improved GFR - no hydroneprosyss Urinarty complaints (difficulty voiding); UA negative Leukocytosis cont zosyn cont dapto POst void residuals fu blood clx unil final monirot WBC
[2017-11-05] MEDS: Heparin - SQ 10,000 UNITS/ML Vial SQ SCH (21:30)
[2017-11-05] MEDS: DAPTOmycin Inj 500 MG in Sodium Chlor 0.9% Inj 100 ML IV.SIG SCH (21:31)
[2017-11-06] MEDS: Piperacil/Tazo 3.375 GM Premix 50 ML IV.SIG SCH ×4 (04:21→22:30)
[2017-11-06] MEDS: Insulin NovoLOG Aspart Correctional Sugar Inj SQ SCH ×4 (04:22→22:38)
[2017-11-06 04:48] LABS: Baso % (Auto) 0.5 % (0.0-2.0); Eos # (Auto) 0.5 th/mm3 (0.0-0.4); Eos % (Auto) 4.5 % (0.0-4.0); Hematocrit 33.2 % (39.0-51.0); Lymph # (Auto) 3.4 th/mm3 (1.0-4.8); Lymph % (Auto) 32.7 % (9.0-44.0); Mean Corpuscular HGB Conc 33.3 % (32.0-36.0); Mean Corpuscular Volume 90.2 fL (80.0-100.0); Mean Platelet Volume 8.5 fL (7.0-11.0); Mono # (Auto) 0.7 th/mm3 (0.0-0.9); Mono % (Auto) 6.5 % (0.0-8.0); Neut # (Auto) 5.9 th/mm3 (1.8-7.7); Neut % (Auto) 55.8 % (16.0-70.0); Platelet Count 154 th/mm3 (150-450); Red Blood Count 3.67 mil/mm3 (4.50-5.90); Red Cell Distribution Width 15.5 % (11.6-17.2); White Blood Count 10.5 th/mm3 (4.0-11.0)
[2017-11-06 05:21] LABS: Calcium 8.6 mg/dL (8.5-10.1); Carbon Dioxide 30.3 meq/L (21.0-32.0)
[2017-11-06] MEDS: Methadone 10 MG Tablet PO SCH (09:00)
[2017-11-06] MEDS: amLODIPine 5 MG Tablet PO SCH (09:01)
[2017-11-06] MEDS: hydrALAZINE 10 MG Tablet PO SCH (09:01)
[2017-11-06] MEDS: Heparin - SQ 10,000 UNITS/ML Vial SQ SCH ×2 (09:01→22:28)
[2017-11-06] MEDS: Senna/Docusate Sodium 8.6/50 MG Tablet PO SCH ×2 (09:01→22:30)
--- NOTE | 2017-11-06 11:54 | P.PNIM ---
Subjective Interval history: Follow-up for osteomyelitis. Patient has no acute complaints at this time. He has been eating okay, reports appetite is not so great today. Physical Exam Vital signs: Vital Signs 11/05/17 12:00 11/05/17 20:00 11/05/17 23:58 Temperature 98.0 F 98.4 F 98.4 F Pulse Rate 49 L 58 L 61 Respiratory Rate 18 17 17 Blood Pressure 175/99 H 166/85 H 162/83 H Pulse Oximetry 98 97 97 11/06/17 00:22 11/06/17 04:00 11/06/17 05:30 Temperature 98 F Pulse Rate 50 L 52 L Respiratory Rate 18 17 Blood Pressure 180/92 H 168/87 H Pulse Oximetry 97 11/06/17 08:00 Temperature 97.6 F Pulse Rate 58 L Respiratory Rate 18 Blood Pressure 189/93 H Pulse Oximetry 96 Intake & Output 11/05/17 11/06/17 11/06/17 18:59 06:59 18:59 Intake Total 150 / 150 200 / 200 Output Total 1600 / 1600 Balance 150 / 150 -1400 / -1400 Weight 151 lb 7.321 oz Intake: IV 150 / 150 200 / 200 Cubicin Inj 500 MG In NS Inj 100 / 100 100 ML @ 200 mls/hr IV.SIG Q24H [facility] Rx#:[id number] Zosyn 3.375 GM Premix 50 ML @ 150 / 150 100 / 100 100 mls/hr IV.SIG Q6H [facility] Rx#: [id number] Output: Urine 1600 / 1600 Other: Date of Last Bowel Movement 11/04/17 11/05/17 Narrative: GENERAL: Well-developed well-nourished. In no acute distress. CARDIOVASCULAR: Regular rate and rhythm. No murmur appreciated. RESPIRATORY: No accessory muscle use. Clear to auscultation. Breath sounds equal bilaterally. GASTROINTESTINAL: Abdomen soft, non-tender, nondistended. Bowel sounds x4. MUSCULOSKELETAL: Dressing present on bilateral feet. No clubbing or cyanosis. No edema. NEUROLOGICAL: Awake and alert. Moves upper and lower extremities spontaneously. Normal speech. PSYCHIATRIC: Appropriate mood and affect; insight and judgment normal. Results - Labs CBC & Chem 7: 11/06/17 04:40 11/06/17 04:40 Laboratory Results - last 24 hr 11/05/17 11/05/17 11/05/17 12:36 16:47 21:52 WBC RBC Hgb Hct MCV MCH MCHC RDW Plt Count MPV Neut % (Auto) Lymph % (Auto) [place] % (Auto) Eos % (Auto) Baso % (Auto) Neut # (Auto) Lymph # (Auto) [place] # (Auto) Eos # (Auto) Baso # (Auto) WBC Differential Differential Comment Sodium Potassium Chloride Carbon Dioxide Anion Gap BUN Creatinine Estimated GFR POC Glucose 83 146 H 125 H Random Glucose Calcium 11/06/17 11/06/17 11/06/17 04:21 04:40 04:40 WBC 10.5 RBC 3.67 L Hgb 11.0 L Hct 33.2 L MCV 90.2 MCH 30.0 MCHC 33.3 RDW 15.5 Plt Count 154 D MPV 8.5 Neut % (Auto) 55.8 Lymph % (Auto) 32.7 [place] % (Auto) 6.5 Eos % (Auto) 4.5 H Baso % (Auto) 0.5 Neut # (Auto) 5.9 Lymph # (Auto) 3.4 [place] # (Auto) 0.7 Eos # (Auto) 0.5 H Baso # (Auto) 0.0 WBC Differential . Differential Comment Auto diff final Sodium 141 Potassium 4.0 Chloride 103 Carbon Dioxide 30.3 Anion Gap 8 BUN 19 H Creatinine 1.45 H Estimated GFR 50 L POC Glucose 82 Random Glucose 66 L Calcium 8.6 11/06/17 11/06/17 08:16 11:37 WBC RBC Hgb Hct MCV MCH MCHC RDW Plt Count MPV Neut % (Auto) Lymph % (Auto) [place] % (Auto) Eos % (Auto) Baso % (Auto) Neut # (Auto) Lymph # (Auto) [place] # (Auto) Eos # (Auto) Baso # (Auto) WBC Differential Differential Comment Sodium Potassium Chloride Carbon Dioxide Anion Gap BUN Creatinine Estimated GFR POC Glucose 79 139 H Random Glucose Calcium Microbiology 11/03/17 00:15 Blood - Line Aerobic Blood Culture - Preliminary No growth in 3 days 11/03/17 00:15 Blood - Line Anaerobic Blood Culture - Preliminary No growth in 3 days 11/02/17 21:20 Blood - Peripheral Aerobic Blood Culture - Preliminary No growth in 4 days 11/02/17 21:20 Blood - Peripheral Anaerobic Blood Culture - Preliminary No growth in 4 days 11/02/17 21:30 Blood - Peripheral Aerobic Blood Culture - Preliminary No growth in 4 days 11/02/17 21:30 Blood - Peripheral Anaerobic Blood Culture - Preliminary No growth in 4 days Assessment and Plan - Plan 57-year-old male with a past medical history significant for IV drug abuse, osteomyelitis with PICC line undergoing vancomycin infusions, COPD, CHF, hypertension presented to the emergency department with complaints of pain "all over his body" and fever. He is homeless and reports was unable to go to infusion center for the past 5 days secondary to weakness. Sepsis/osteomyelitis Patient with elevated lactic acid, fever, tachycardia and left shift Recently diagnosed with osteomyelitis and discharged on 6 weeks of IV vancomycin.Noncompliant with IV vancomycin 5 days prior to admission. -Repeat blood cultures obtained no growth to date. -Continue vancomycin and Zosyn for broad-spectrum coverage -Consulted infectious disease for further recommendations, appreciate assistance -11/06 leukocytosis resolved Diabetes mellitus -Regular diet, insulin sliding scale with coverage as needed, blood sugar stable. Hepatitis C/cirrhosis, chronic -Liver enzymes stable. Chronic methadone use -Dose was verified by nurse with methadone clinic and restarted. DANILO Baseline creatinine appears around 1.31.4, currently stable -Monitor Hypertension, chronic Not well controlled -Continue amlodipine -Resume lisinopril -Increase hydralazine to 25 mg DVT prophylaxis-subcu heparin Discharge Planning: Monitor cultures and follow-up final ID recommendation
[2017-11-06] MEDS: hydrALAZINE 25 MG Tablet PO SCH ×2 (13:18→17:15)
[2017-11-06] MEDS: Lisinopril 10 MG Tablet PO SCH (13:18)
[2017-11-06] MEDS: DAPTOmycin Inj 500 MG in Sodium Chlor 0.9% Inj 100 ML IV.SIG SCH (22:30)
[2017-11-07] MEDS: Piperacil/Tazo 3.375 GM Premix 50 ML IV.SIG SCH ×4 (05:09→21:32)
[2017-11-07] MEDS: Insulin NovoLOG Aspart Correctional Sugar Inj SQ SCH ×5 (05:15→21:30)
[2017-11-07] MEDS: amLODIPine 5 MG Tablet PO SCH (08:58)
[2017-11-07] MEDS: Lisinopril 10 MG Tablet PO SCH (08:58)
[2017-11-07] MEDS: Heparin - SQ 10,000 UNITS/ML Vial SQ SCH ×2 (08:58→21:31)
[2017-11-07] MEDS: hydrALAZINE 25 MG Tablet PO SCH ×3 (08:58→17:33)
[2017-11-07] MEDS: Methadone 10 MG Tablet PO SCH (08:58)
[2017-11-07] MEDS: Senna/Docusate Sodium 8.6/50 MG Tablet PO SCH ×2 (09:02→21:32)
--- NOTE | 2017-11-07 12:26 | P.PNIM ---
Subjective Interval history: Follow-up for osteomyelitis. Patient complains of neuropathic pain asking his home gabapentin be resumed Physical Exam Vital signs: Vital Signs 11/06/17 16:00 11/06/17 19:40 11/06/17 20:00 Temperature 97.4 F L 97.8 F Pulse Rate 55 L 62 58 L Respiratory Rate 18 16 Blood Pressure 165/77 H 124/66 Pulse Oximetry 96 96 11/07/17 00:00 11/07/17 04:00 11/07/17 04:03 Temperature 98.3 F 97.8 F Pulse Rate 54 L 55 L 49 L Respiratory Rate 17 16 Blood Pressure 151/81 H 133/73 Pulse Oximetry 93 L 94 L 11/07/17 08:00 11/07/17 12:00 Temperature 97.7 F 98.2 F Pulse Rate 64 59 L Respiratory Rate 17 16 Blood Pressure 134/76 121/65 Pulse Oximetry 96 97 Intake & Output 11/06/17 11/07/17 11/07/17 18:59 06:59 18:59 Intake Total 100 / 100 200 / 200 Output Total 1200 / 1200 1999 Balance -1100 / -1100 -1800 / -1800 Weight 65.4 kg Intake: IV 100 / 100 200 / 200 Cubicin Inj 500 MG In NS Inj 100 / 100 100 ML @ 200 mls/hr IV.SIG Q24H [facility] Rx#:[id number] Zosyn 3.375 GM Premix 50 ML @ 100 / 100 100 / 100 100 mls/hr IV.SIG Q6H [facility] Rx#: [id number] Output: Urine 1200 / 1200 1999 Narrative: GENERAL: Well-developed well-nourished. In no acute distress. CARDIOVASCULAR: Regular rate and rhythm. No murmur appreciated. RESPIRATORY: No accessory muscle use. Clear to auscultation. Breath sounds equal bilaterally. GASTROINTESTINAL: Abdomen soft, non-tender, nondistended. Bowel sounds x4. MUSCULOSKELETAL: Dressing present on bilateral feet. No clubbing or cyanosis. No edema. NEUROLOGICAL: Awake and alert. Moves upper and lower extremities spontaneously. Normal speech. PSYCHIATRIC: Appropriate mood and affect; insight and judgment normal. Results - Labs CBC & Chem 7: 11/06/17 04:40 11/06/17 04:40 Laboratory Results - last 24 hr 11/06/17 11/06/17 11/07/17 17:16 22:37 05:11 POC Glucose 96 100 68 11/07/17 11/07/17 11/07/17 07:46 08:51 12:03 POC Glucose 62 L 182 H 90 Microbiology 11/03/17 00:15 Blood - Line Aerobic Blood Culture - Preliminary No growth in 4 days 11/03/17 00:15 Blood - Line Anaerobic Blood Culture - Preliminary No growth in 4 days 11/02/17 21:20 Blood - Peripheral Aerobic Blood Culture - Final No growth in 5 days 11/02/17 21:20 Blood - Peripheral Anaerobic Blood Culture - Final No growth in 5 days 11/02/17 21:30 Blood - Peripheral Aerobic Blood Culture - Final No growth in 5 days 11/02/17 21:30 Blood - Peripheral Anaerobic Blood Culture - Final No growth in 5 days Assessment and Plan - Plan 57-year-old male with a past medical history significant for IV drug abuse, osteomyelitis with PICC line undergoing vancomycin infusions, COPD, CHF, hypertension presented to the emergency department with complaints of pain "all over his body" and fever. He is homeless and reports was unable to go to infusion center for the past 5 days secondary to weakness. Sepsis/osteomyelitis Patient with elevated lactic acid, fever, tachycardia and left shift Recently diagnosed with osteomyelitis and discharged on 6 weeks of IV vancomycin.Noncompliant with IV vancomycin 5 days prior to admission. -Repeat blood cultures obtained no growth to date. -Continue vancomycin and Zosyn for broad-spectrum coverage -Consulted infectious disease for further recommendations, appreciate assistance -11/06 leukocytosis resolved Diabetes mellitus -Regular diet, insulin sliding scale with coverage as needed, blood sugar stable. Hepatitis C/cirrhosis, chronic -Liver enzymes stable. Chronic methadone use -Dose was verified by nurse with methadone clinic and restarted. Neuropathic pain -Resume home gabapentin 300 mg 3 times daily DANILO Baseline creatinine appears around 1.31.4, currently stable -Monitor -Recheck BMP in a.m. Hypertension, chronic Not well controlled -Continue amlodipine -Resume lisinopril -Increase hydralazine to 25 mg DVT prophylaxis-subcu heparin Discharge Planning: Monitor cultures and follow-up final ID recommendation Discussed case with supervising physician Dr. John
[2017-11-07] MEDS: Gabapentin 300 MG Capsule PO SCH ×2 (13:16→21:31)
[2017-11-07] MEDS: DAPTOmycin Inj 500 MG in Sodium Chlor 0.9% Inj 100 ML IV.SIG SCH (21:32)
[2017-11-08] MEDS: Piperacil/Tazo 3.375 GM Premix 50 ML IV.SIG SCH ×4 (06:03→22:30)
[2017-11-08] MEDS: Gabapentin 300 MG Capsule PO SCH (06:03)
[2017-11-08] MEDS: Insulin NovoLOG Aspart Correctional Sugar Inj SQ SCH ×5 (06:12→21:17)
[2017-11-08 06:35] LABS: Baso % (Auto) 0.4 % (0.0-2.0); Eos # (Auto) 0.7 th/mm3 (0.0-0.4); Eos % (Auto) 6.1 % (0.0-4.0); Hematocrit 34.6 % (39.0-51.0); Hemoglobin 11.4 gm/dL (13.0-17.0); Lymph # (Auto) 4.9 th/mm3 (1.0-4.8); Lymph % (Auto) 40.8 % (9.0-44.0); Mean Corpuscular Hemoglobin 29.6 pg (27.0-34.0); Mean Corpuscular Volume 89.7 fL (80.0-100.0); Mean Platelet Volume 8.3 fL (7.0-11.0); Mono # (Auto) 0.9 th/mm3 (0.0-0.9); Mono % (Auto) 7.5 % (0.0-8.0); Neut # (Auto) 5.4 th/mm3 (1.8-7.7); Neut % (Auto) 45.2 % (16.0-70.0); Platelet Count 196 th/mm3 (150-450); Red Blood Count 3.86 mil/mm3 (4.50-5.90); Red Cell Distribution Width 15.5 % (11.6-17.2); White Blood Count 11.9 th/mm3 (4.0-11.0)
[2017-11-08 06:49] LABS: Calcium 8.7 mg/dL (8.5-10.1); Carbon Dioxide 32.7 meq/L (21.0-32.0); Potassium 4.2 meq/L (3.5-5.1)
[2017-11-08 08:34] LABS: Eosinophils 9 % (0-4); Lymphocytes 38 % (9-44); Metamyelocytes 2 % (0-1); Monocytes 5 % (0-8); Myelocytes 1 % (0-0); Platelet Estimate Normal (Normal); Platelet Morphology Normal (Normal); Promyelocyte 3 % (0-0)
[2017-11-08] MEDS: amLODIPine 5 MG Tablet PO SCH (08:56)
[2017-11-08] MEDS: Heparin - SQ 10,000 UNITS/ML Vial SQ SCH ×2 (08:56→21:23)
[2017-11-08] MEDS: Lisinopril 10 MG Tablet PO SCH (08:56)
[2017-11-08] MEDS: hydrALAZINE 25 MG Tablet PO SCH ×2 (08:56→12:22)
[2017-11-08] MEDS: Methadone 10 MG Tablet PO SCH (08:57)
[2017-11-08] MEDS: Senna/Docusate Sodium 8.6/50 MG Tablet PO SCH ×2 (09:00→21:23)
--- NOTE | 2017-11-08 11:36 | P.PN ---
Subjective Interval history: Follow-up visit for osteomyelitis of left foot. Patient seen and examined sitting up in bed with son at bedside. Discussed episode of hypoglycemia overnight. Patient reports that initial blood sugar was taken from IV site and subsequent blood sugar was taken from fingerstick. Patient reports that he is not getting bedtime snack. Denies any chills, nausea, vomiting, diarrhea, cough or shortness of breath. Patient continues to complain of bilateral leg neuropathy, reports that this feels as if his legs are "burning", requesting increase in gabapentin dose. Patient also asking regarding assistance with transportation to infusion center once discharged. Physical Exam Vital signs: Vital Signs 11/07/17 12:00 11/07/17 16:00 11/07/17 19:57 Temperature 98.2 F 98.0 F Pulse Rate 59 L 54 L 75 Respiratory Rate 16 17 Blood Pressure 121/65 135/75 Pulse Oximetry 97 97 11/07/17 20:00 11/07/17 23:27 11/08/17 00:00 Temperature 98.0 F 97.3 F L Pulse Rate 54 L 50 L 50 L Respiratory Rate 16 16 Blood Pressure 121/67 119/67 Pulse Oximetry 98 94 L 11/08/17 04:00 11/08/17 08:00 Temperature 97.2 F L 97.3 F L Pulse Rate 52 L 48 L Respiratory Rate 16 16 Blood Pressure 107/64 95/54 L Pulse Oximetry 97 100 Intake & Output 11/07/17 11/08/17 11/08/17 18:59 06:59 18:59 Intake Total 1800 / 1800 200 / 200 Output Total 800 / 800 1650 / 1650 Balance 1000 / 1000 -1450 / -1450 Weight 63.8 kg Intake: IV 100 / 100 200 / 200 Cubicin Inj 500 MG In NS Inj 100 / 100 100 ML @ 200 mls/hr IV.SIG Q24H [facility] Rx#:[id number] Zosyn 3.375 GM Premix 50 ML @ 100 / 100 100 / 100 100 mls/hr IV.SIG Q6H [facility] Rx#: [id number] Oral 1700 / 1700 Output: Urine 800 / 800 1650 / 1650 Other: # Bowel Movements 0 Narrative: GENERAL: Well-developed well-nourished. In no acute distress. CARDIOVASCULAR: Regular rate and rhythm. No murmur appreciated. RESPIRATORY: No accessory muscle use. Clear to auscultation. Breath sounds equal bilaterally. GASTROINTESTINAL: Abdomen soft, non-tender, nondistended. Bowel sounds x4. MUSCULOSKELETAL: Dressing present on bilateral feet. No clubbing or cyanosis. No edema. NEUROLOGICAL: Awake and alert. Moves upper and lower extremities spontaneously. Normal speech. PSYCHIATRIC: Appropriate mood and affect; insight and judgment normal. Results - Labs CBC & Chem 7: 11/08/17 06:00 11/08/17 06:00 Laboratory Results - last 24 hr 11/07/17 11/07/17 11/07/17 12:03 16:18 21:37 WBC RBC Hgb Hct MCV MCH MCHC RDW Plt Count MPV Prelim Diff (Auto) Neut % (Auto) Lymph % (Auto) [place] % (Auto) Eos % (Auto) Baso % (Auto) Neut # (Auto) Lymph # (Auto) [place] # (Auto) Eos # (Auto) Baso # (Auto) WBC Differential Seg Neuts % (Manual) Lymphocytes % (Manual) Monocytes % (Manual) Eosinophils % (Manual) Metamyelocytes % (Man) Myelocytes % (Man) Promyelocytes % (Man) Abs Neuts (Manual) Differential Comment Platelet Estimate Platelet Morphology Sodium Potassium Chloride Carbon Dioxide Anion Gap BUN Creatinine Estimated GFR POC Glucose 90 100 130 H Random Glucose Calcium 11/08/17 11/08/17 11/08/17 06:00 06:00 06:09 WBC 11.9 H RBC 3.86 L Hgb 11.4 L Hct 34.6 L MCV 89.7 MCH 29.6 MCHC 33.0 RDW 15.5 Plt Count 196 MPV 8.3 Prelim Diff (Auto) Slide review pending Neut % (Auto) 45.2 Lymph % (Auto) 40.8 [place] % (Auto) 7.5 Eos % (Auto) 6.1 H Baso % (Auto) 0.4 Neut # (Auto) 5.4 Lymph # (Auto) 4.9 H [place] # (Auto) 0.9 Eos # (Auto) 0.7 H Baso # (Auto) 0.0 WBC Differential Manual diff final Seg Neuts % (Manual) 42 Lymphocytes % (Manual) 38 Monocytes % (Manual) 5 Eosinophils % (Manual) 9 H Metamyelocytes % (Man) 2 H Myelocytes % (Man) 1 H Promyelocytes % (Man) 3 H Abs Neuts (Manual) 5.7 Differential Comment . Platelet Estimate Normal Platelet Morphology Normal Sodium 139 Potassium 4.2 Chloride 101 Carbon Dioxide 32.7 H Anion Gap 5 BUN 18 Creatinine 1.34 H Estimated GFR 55 L POC Glucose 25 L* Random Glucose 64 L Calcium 8.7 11/08/17 11/08/17 06:10 08:38 WBC RBC Hgb Hct MCV MCH MCHC RDW Plt Count MPV Prelim Diff (Auto) Neut % (Auto) Lymph % (Auto) [place] % (Auto) Eos % (Auto) Baso % (Auto) Neut # (Auto) Lymph # (Auto) [place] # (Auto) Eos # (Auto) Baso # (Auto) WBC Differential Seg Neuts % (Manual) Lymphocytes % (Manual) Monocytes % (Manual) Eosinophils % (Manual) Metamyelocytes % (Man) Myelocytes % (Man) Promyelocytes % (Man) Abs Neuts (Manual) Differential Comment Platelet Estimate Platelet Morphology Sodium Potassium Chloride Carbon Dioxide Anion Gap BUN Creatinine Estimated GFR POC Glucose 67 L 161 H Random Glucose Calcium Microbiology 11/03/17 00:15 Blood - Line Aerobic Blood Culture - Final No growth in 5 days 11/03/17 00:15 Blood - Line Anaerobic Blood Culture - Final No growth in 5 days 11/02/17 21:20 Blood - Peripheral Aerobic Blood Culture - Final No growth in 5 days 11/02/17 21:20 Blood - Peripheral Anaerobic Blood Culture - Final No growth in 5 days 11/02/17 21:30 Blood - Peripheral Aerobic Blood Culture - Final No growth in 5 days 11/02/17 21:30 Blood - Peripheral Anaerobic Blood Culture - Final No growth in 5 days Assessment and Plan - Plan 57-year-old male with a past medical history significant for IV drug abuse, osteomyelitis with PICC line undergoing vancomycin infusions, COPD, CHF, hypertension presented to the emergency department with complaints of pain "all over his body" and fever. He is homeless and reports was unable to go to infusion center for the past 5 days secondary to weakness. Sepsis/osteomyelitis Patient with elevated lactic acid, fever, tachycardia and left shift Recently diagnosed with osteomyelitis and discharged on 6 weeks of IV vancomycin -Noncompliant with IV vancomycin 5 days prior to admission. -Repeat blood cultures obtained no growth to date. -Continue Zosyn and daptomycin. -Consult infectious disease for further recommendations, appreciate assistance -Echo with EF 50-55%, wall thickness upper limits of normal, left ventricle size normal, no definite regional wall abnormalities. Aortic valve not well visualized, possible slight leaflet sclerosis, trace to mild tricuspid valve regurgitation. -ID following blood cultures until finalized Diabetes mellitus Diabetic neuropathy hypoglycemic event 11/08 -Regular diet, insulin sliding scale with coverage as needed, blood sugar stable. -Provide at bedtime snack, no coverage with 3 AM blood sugar checks. -Increase gabapentin to 400 every 8 hours. Hypertension/hyperlipidemia/CHF -BPs on the lower side, continue Norvasc and decrease hydralazine. Hepatitis C/cirrhosis, chronic -Liver enzymes stable on admission. Hypokalemia/hypomagnesemia -s/p placement, now stable -Monitor BMP Chronic methadone use -Dose verified by nurse with methadone clinic and restarted. DANILO -Patient provided with fluid boluses, patient tolerating p.o. well, renal function improved. Discontinue IV fluids, encourage oral hydration. -Creatinine improving, continue to monitor. DVT prophylaxis-subcu heparin Discussed Condition With: Discussed with patient, son at bedside, functional skills tutor Planning: Will need ID antibiotic recommendations prior to discharge. Discuss with case management to assist with transportation from home to IV center if needed.
[2017-11-08] MEDS: Gabapentin 400 MG Capsule PO SCH ×2 (15:37→21:22)
[2017-11-08] MEDS: hydrALAZINE 10 MG Tablet PO SCH (18:00)
--- NOTE | 2017-11-08 18:58 | P.PNADD ---
Addendum to Inpatient Note Additional information: afebrile hypoglycemia noted will probably dc tomorrow if no prblems on po abx (zyvox or clindamycin, levaquine) - he will need to have labs monitored however Pt is not a candidate for any more PICC since he is non compliant and keep doing IV drugs destini SOLANO
[2017-11-08] MEDS: DAPTOmycin Inj 500 MG in Sodium Chlor 0.9% Inj 100 ML IV.SIG SCH (21:18)
[2017-11-09] MEDS: Piperacil/Tazo 3.375 GM Premix 50 ML IV.SIG SCH ×2 (04:13→09:06)
[2017-11-09] MEDS: Insulin NovoLOG Aspart Correctional Sugar Inj SQ SCH ×3 (04:14→12:22)
[2017-11-09] MEDS: Gabapentin 400 MG Capsule PO SCH ×2 (06:19→13:57)
[2017-11-09] MEDS: Senna/Docusate Sodium 8.6/50 MG Tablet PO SCH (08:12)
[2017-11-09] MEDS: Methadone 10 MG Tablet PO SCH (08:13)
[2017-11-09] MEDS: hydrALAZINE 10 MG Tablet PO SCH ×2 (08:14→12:38)
[2017-11-09] MEDS: amLODIPine 5 MG Tablet PO SCH (08:14)
[2017-11-09] MEDS: Lisinopril 10 MG Tablet PO SCH (08:14)
[2017-11-09] MEDS: Heparin - SQ 10,000 UNITS/ML Vial SQ SCH (08:15)
[2017-11-09 08:48] LABS: Calcium 8.5 mg/dL (8.5-10.1); Potassium 3.7 meq/L (3.5-5.1)
--- NOTE | 2017-11-09 12:39 | P.PNIM ---
Subjective Interval history: Swears that he can find a place to live he will not be living in the [place]. He does not want to get on oral antibiotics and wants to continue with outpatient IV antibiotics with home health care of it could be set up. Reports no pain at this time. Physical Exam Vital signs: Vital Signs 11/08/17 16:00 11/08/17 20:00 11/09/17 00:00 Temperature 98.4 F 98.9 F 97.8 F Pulse Rate 63 60 61 Respiratory Rate 16 18 18 Blood Pressure 100/50 L 124/58 L 105/56 L Pulse Oximetry 92 L 97 97 11/09/17 04:00 11/09/17 08:00 Temperature 97 F L 97.7 F Pulse Rate 58 L 59 L Respiratory Rate 18 17 Blood Pressure 101/59 L 94/52 L Pulse Oximetry 99 99 Intake & Output 11/08/17 11/09/17 11/09/17 18:59 06:59 18:59 Intake Total 1500 / 1500 560 / 560 50 / 50 Output Total 1250 / 1250 Balance 1500 / 1500 -690 / -690 50 / 50 Weight 65.9 kg Intake: IV 100 / 100 200 / 200 50 / 50 Cubicin Inj 500 MG In NS Inj 100 / 100 100 ML @ 200 mls/hr IV.SIG Q24H [facility] Rx#:[id number] Zosyn 3.375 GM Premix 50 ML @ 100 / 100 100 / 100 50 / 50 100 mls/hr IV.SIG Q6H [facility] Rx#: [id number] Oral 1400 / 1400 360 / 360 Output: Urine 1250 / 1250 Other: # Voids 3 Date of Last Bowel Movement 11/05/17 # Bowel Movements 1 0 Narrative: GENERAL: Well-developed well-nourished. In no acute distress. CARDIOVASCULAR: Regular rate and rhythm. No murmur appreciated. RESPIRATORY: No accessory muscle use. Clear to auscultation. Breath sounds equal bilaterally. GASTROINTESTINAL: Abdomen soft, non-tender, nondistended. Bowel sounds x4. MUSCULOSKELETAL: Dressing present on bilateral feet. No clubbing or cyanosis. No edema. NEUROLOGICAL: Awake and alert. Moves upper and lower extremities spontaneously. Normal speech. Results - Labs CBC & Chem 7: 11/08/17 06:00 11/09/17 07:00 Laboratory Results - last 24 hr 09/12/1611/08/17 11/09/17 17:01 21:17 04:07 Sodium Potassium Chloride Carbon Dioxide Anion Gap BUN Creatinine Estimated GFR POC Glucose 108 154 H 140 H Random Glucose Calcium 11/09/17 11/09/17 11/09/17 07:00 08:07 12:16 Sodium 138 Potassium 3.7 Chloride 98 Carbon Dioxide 30.0 Anion Gap 10 BUN 21 H Creatinine 1.63 H Estimated GFR 44 L POC Glucose 142 H 57 L Random Glucose 101 Calcium 8.5 Microbiology 11/03/17 00:15 Blood - Line Aerobic Blood Culture - Final No growth in 5 days 11/03/17 00:15 Blood - Line Anaerobic Blood Culture - Final No growth in 5 days Assessment and Plan - Plan 57-year-old male with a past medical history significant for IV drug abuse, osteomyelitis with PICC line undergoing vancomycin infusions, COPD, CHF, hypertension presented to the emergency department with complaints of pain "all over his body" and fever. He is homeless and reports was unable to go to infusion center for the past 5 days secondary to weakness and transportation issues.. Sepsis/osteomyelitis Patient with elevated lactic acid, fever, tachycardia and left shift Recently diagnosed with osteomyelitis and discharged on 6 weeks of IV vancomycin -Noncompliant with IV vancomycin 5 days prior to admission. -Repeat blood cultures obtained no growth to date. -Continue daptomycin and will discontinue Zosyn. If patient continues to be noncompliant will switch over to p.o clindamycin and Levaquin. Patient would like to continue with IV antibiotics and arrange for home health care if he is able to arrange for an apartment upon discharge. -infectious disease for further recommendations, appreciate assistance -Echo with EF 50-55%, wall thickness upper limits of normal, left ventricle size normal, no definite regional wall abnormalities. Aortic valve not well visualized, possible slight leaflet sclerosis, trace to mild tricuspid valve regurgitation. -ID following blood cultures until finalized Diabetes mellitus, type II with Diabetic neuropathy hypoglycemic event 11/08 -Regular diet, insulin sliding scale with coverage as needed, blood sugar stable. -Provide at bedtime snack, no coverage with 3 AM blood sugar checks. -Continue with gabapentin to 400 every 8 hours. Hypertension/hyperlipidemia/CHF -BPs on the lower side, continue Norvasc and decrease hydralazine. Hepatitis C/cirrhosis, chronic -Liver enzymes stable on admission. Hypokalemia/hypomagnesemia -s/p placement, now stable -Monitor BMP Chronic methadone use -Dose verified by nurse with methadone clinic and restarted. DANILO -Patient provided with fluid boluses, patient tolerating p.o. well, renal function improved. Discontinue IV fluids, encourage oral hydration. -Creatinine improving, continue to monitor. DVT prophylaxis-subcu heparin
--- NOTE | 2017-11-09 12:55 | P.PNID ---
Subjective Remarks: no new co all cultures are negative - final afebrile Antibiotics: dapto zosyn Allergies/Adverse Reactions: Allergies codeine Adverse Reaction (Severe, Verified 11/02/17 21:19) NAUSEA Objective Vital Signs 11/08/17 16:00 11/08/17 20:00 11/09/17 00:00 Temperature 98.4 F 98.9 F 97.8 F Pulse Rate 63 60 61 Respiratory Rate 16 18 18 Blood Pressure 100/50 L 124/58 L 105/56 L Pulse Oximetry 92 L 97 97 11/09/17 04:00 11/09/17 08:00 11/09/17 12:00 Temperature 97 F L 97.7 F 98.2 F Pulse Rate 58 L 59 L 78 Respiratory Rate 18 17 17 Blood Pressure 101/59 L 94/52 L 130/60 Pulse Oximetry 99 99 97 Intake & Output 11/08/17 11/09/17 11/09/17 18:59 06:59 18:59 Intake Total 1500 / 1500 560 / 560 50 / 50 Output Total 1250 / 1250 Balance 1500 / 1500 -690 / -690 50 / 50 Weight 65.9 kg Intake: IV 100 / 100 200 / 200 50 / 50 Cubicin Inj 500 MG In NS Inj 100 / 100 100 ML @ 200 mls/hr IV.SIG Q24H [facility]ON Rx#:[id number] Zosyn 3.375 GM Premix 50 ML @ 100 / 100 100 / 100 50 / 50 100 mls/hr IV.SIG Q6H LEON Rx#: [id number] Oral 1400 / 1400 360 / 360 Output: Urine 1250 / 1250 Other: # Voids 3 Date of Last Bowel Movement 11/05/17 # Bowel Movements 1 0 11/03/17 00:15 Blood - Line Aerobic Blood Culture - Final No growth in 5 days 11/03/17 00:15 Blood - Line Anaerobic Blood Culture - Final No growth in 5 days 11/02/17 21:20 Blood - Peripheral Aerobic Blood Culture - Final No growth in 5 days 11/02/17 21:20 Blood - Peripheral Anaerobic Blood Culture - Final No growth in 5 days 11/02/17 21:30 Blood - Peripheral Aerobic Blood Culture - Final No growth in 5 days 11/02/17 21:30 Blood - Peripheral Anaerobic Blood Culture - Final No growth in 5 days Lab - Hematology Results 11/08/17 06:00 WBC 11.9 H RBC 3.86 L Hgb 11.4 L Hct 34.6 L MCV 89.7 MCH 29.6 MCHC 33.0 RDW 15.5 Plt Count 196 MPV 8.3 Prelim Diff (Auto) Slide review pending Neut % (Auto) 45.2 Lymph % (Auto) 40.8 [place] % (Auto) 7.5 Eos % (Auto) 6.1 H Baso % (Auto) 0.4 Neut # (Auto) 5.4 Lymph # (Auto) 4.9 H [place] # (Auto) 0.9 Eos # (Auto) 0.7 H Baso # (Auto) 0.0 WBC Differential Manual diff final Seg Neuts % (Manual) 42 Lymphocytes % (Manual) 38 Monocytes % (Manual) 5 Eosinophils % (Manual) 9 H Metamyelocytes % (Man) 2 H Myelocytes % (Man) 1 H Promyelocytes % (Man) 3 H Abs Neuts (Manual) 5.7 Differential Comment . Platelet Estimate Normal Platelet Morphology Normal Lab - Chemistry Results 11/07/17 11/07/17 11/08/17 16:18 21:37 06:00 Sodium 139 Potassium 4.2 Chloride 101 Carbon Dioxide 32.7 H Anion Gap 5 BUN 18 Creatinine 1.34 H Estimated GFR 55 L POC Glucose 100 130 H Random Glucose 64 L Calcium 8.7 11/08/17 11/08/17 11/08/17 06:09 06:10 08:38 Sodium Potassium Chloride Carbon Dioxide Anion Gap BUN Creatinine Estimated GFR POC Glucose 25 L* 67 L 161 H Random Glucose Calcium 11/08/17 11/08/17 11/08/17 12:09 17:01 21:17 Sodium Potassium Chloride Carbon Dioxide Anion Gap BUN Creatinine Estimated GFR POC Glucose 212 H 108 154 H Random Glucose Calcium 11/09/17 11/09/17 11/09/17 04:07 07:00 08:07 Sodium 138 Potassium 3.7 Chloride 98 Carbon Dioxide 30.0 Anion Gap 10 BUN 21 H Creatinine 1.63 H Estimated GFR 44 L POC Glucose 140 H 142 H Random Glucose 101 Calcium 8.5 11/09/17 11/09/17 12:16 12:50 Sodium Potassium Chloride Carbon Dioxide Anion Gap BUN Creatinine Estimated GFR POC Glucose 57 L 107 Random Glucose Calcium Imaging: ITS Impressions Chest X-Ray 11/02/17 21:11 CONCLUSION: 1. No acute cardiopulmonary disease. 2. Right-sided PICC line has its tip in superior vena cava. Abdomen/Bladder Ultrasound 11/03/17 00:00 CONCLUSION: 1. Negative renal sonogram. Physical Exam: GENERAL: NAD SKIN: Warm and dry. no rash EYES: No scleral icterus. No injection or drainage. ENT: Mucous membranes pink and moist. CARDIOVASCULAR: Regular rate and rhythm. No murmurs RESPIRATORY: No accessory muscle use. Clear to auscultation. Breath sounds equal bilaterally. GASTROINTESTINAL: Abdomen soft, non-tender, nondistended. Hepatic and splenic margins not palpable. MUSCULOSKELETAL: Extremities without clubbing, cyanosis, or edema. no cyanosis, no clubbing edema L foot incisions are healed no redness no swelling, no tenderness NEUROLOGICAL: Awake and alert. No obvious neurodeficits. PSYCHIATRIC: Appropriate mood and affect; Assessment and Plan - Plan sepsis - bl clx negative -2D echo negative , but aortic valve is not well visualized IVDU Previously Acinetobacter sepsis L foot osteomyelitis (Acinetobacter, MRSA) - improving. nearly resolved clncally and healing nicely DANILO: improved GFR - no hydroneprosyss Urinarty complaints (difficulty voiding); UA negative Leukocytosis dc zosyn, dapto dc today on po abx ( clindamycin 300 mg PO qid , levaquine 750 mg PO daily ) thru - he will need to have labs monitored however: CBC and CMP weekly thru 11/28 Pt is not a candidate for any more PICC since he is non compliant and keep doing IV drugs dw Dr Chang
--- NOTE | 2017-11-09 13:22 | P.DS ---
Date of admission: 11/02/17 22:47 Primary care physician: UNKNOWN Brief History from admission: 57-year-old male with a past medical history significant for IV drug abuse, osteomyelitis with PICC line undergoing vancomycin infusions, COPD, CHF, hypertension presents to the emergency department for evaluation of pain "all over his body" and fever. The patient was recently treated in the hospital for osteomyelitis of the left foot and was discharged on vancomycin infusions with the PICC line. He is homeless and reports he has been unable to get to the infusion center for the past 5 days secondary to weakness. He states he last used IV drugs earlier today. He denies any injection into his PICC line. He denies chest pain or shortness of breath. Positive fever/chills. No abdominal pain. No nausea/vomiting/diarrhea. No lateralizing signs/symptoms. DS: Diagnosis - Discharge Diagnosis (1) Osteomyelitis Status: Chronic Diagnosis: Principal (2) History of substance abuse Status: Chronic Diagnosis: Secondary (3) Osteomyelitis of ankle or foot, left, acute Status: Acute Diagnosis: Principal (4) Drug abuse Status: Chronic Diagnosis: Secondary DS: Summary Hospital Course: These are the medical issues addressed during this hospitalization: 57-year-old male with a past medical history significant for IV drug abuse, osteomyelitis with PICC line undergoing vancomycin infusions, COPD, CHF, hypertension presented to the emergency department with complaints of pain "all over his body" and fever. He is homeless and reports was unable to go to infusion center for the past 5 days secondary to weakness and transportation issues.. Sepsis/osteomyelitis Patient with elevated lactic acid, fever, tachycardia and left shift on presentation Recently diagnosed with osteomyelitis and discharged on 6 weeks of IV vancomycin -Noncompliant with IV vancomycin 5 days prior to admission. Also admitted to continue IV drug use outside of the hospital. -Repeat blood cultures obtained no growth to date. -Continue daptomycin and Zosyn during the hospitalization Due to patient's noncompliance infectious disease does not feel he is a continued IV antibiotics candidate with the PICC line. She is now recommending clindamycin 300 mg p.o. 4 times daily and Levaquin 750 mg p.o. daily through November 28 -Echo with EF 50-55%, wall thickness upper limits of normal, left ventricle size normal, no definite regional wall abnormalities. Aortic valve not well visualized, possible slight leaflet sclerosis, trace to mild tricuspid valve regurgitation. -ID following blood cultures until finalized Diabetes mellitus, type II with Diabetic neuropathy hypoglycemic event 11/08 -Regular diet, insulin sliding scale with coverage as needed, blood sugar stable. -Provide at bedtime snack, no coverage with 3 AM blood sugar checks. -Continue with gabapentin to 400 every 8 hours. Hypertension/hyperlipidemia/CHF -BPs on the lower side, continue Norvasc and decrease hydralazine. Hepatitis C/cirrhosis, chronic -Liver enzymes stable on admission. Hypokalemia/hypomagnesemia -s/p placement, now stable -Monitor BMP Chronic methadone use -Dose verified by nurse with methadone clinic DANILO -Patient provided with fluid boluses, patient tolerating p.o. well, renal function improved. Discontinue IV fluids, encourage oral hydration. -Creatinine improving, continue to monitor. DVT prophylaxis-subcu heparin Patient has gained maximum benefit from hospitalization is ready to be discharged to home. - Time Spent with Patient Total time spent providing and/or coordinating discharge services: Less than 30 minutes - Quality: VTE Deep Vein Thrombosis/Pulmonary Embolism Present on Admission: No Exam Vital signs: Vital Signs 11/08/17 16:00 11/08/17 20:00 11/09/17 00:00 Temperature 98.4 F 98.9 F 97.8 F Pulse Rate 63 60 61 Respiratory Rate 16 18 18 Blood Pressure 100/50 L 124/58 L 105/56 L Pulse Oximetry 92 L 97 97 11/09/17 04:00 11/09/17 08:00 11/09/17 12:00 Temperature 97 F L 97.7 F 98.2 F Pulse Rate 58 L 59 L 78 Respiratory Rate 18 17 17 Blood Pressure 101/59 L 94/52 L 130/60 Pulse Oximetry 99 99 97 Intake & Output 11/08/17 11/09/17 11/09/17 18:59 06:59 18:59 Intake Total 1500 / 1500 560 / 560 50 / 50 Output Total 1250 / 1250 Balance 1500 / 1500 -690 / -690 50 / 50 Weight 65.9 kg Intake: IV 100 / 100 200 / 200 50 / 50 Cubicin Inj 500 MG In NS Inj 100 / 100 100 ML @ 200 mls/hr IV.SIG Q24H [facility] Rx#:[id number] Zosyn 3.375 GM Premix 50 ML @ 100 / 100 100 / 100 50 / 50 100 mls/hr IV.SIG Q6H LEON Rx#: [id number] Oral 1400 / 1400 360 / 360 Output: Urine 1250 / 1250 Other: # Voids 3 Date of Last Bowel Movement 11/05/17 # Bowel Movements 1 0 Results Procedures completed during hospitalization: none Labs on day of discharge: Labs from last 24 hours 11/09/17 11/09/17 11/09/17 12:50 12:16 08:07 Sodium Potassium Chloride Carbon Dioxide Anion Gap BUN Creatinine Estimated GFR POC Glucose 107 57 L 142 H Random Glucose Calcium 11/09/17 11/09/17 11/08/17 07:00 04:07 21:17 Sodium 138 Potassium 3.7 Chloride 98 Carbon Dioxide 30.0 Anion Gap 10 BUN 21 H Creatinine 1.63 H Estimated GFR 44 L POC Glucose 140 H 154 H Random Glucose 101 Calcium 8.5 11/08/17 17:01 Sodium Potassium Chloride Carbon Dioxide Anion Gap BUN Creatinine Estimated GFR POC Glucose 108 Random Glucose Calcium - Impressions ITS Impressions Chest X-Ray 11/02/17 21:11 CONCLUSION: 1. No acute cardiopulmonary disease. 2. Right-sided PICC line has its tip in superior vena cava. Abdomen/Bladder Ultrasound 11/03/17 00:00 CONCLUSION: 1. Negative renal sonogram. Discharge Plan - Discharge Disposition Patient Disposition: Discharge Home - Discharge Condition Condition: Stable - Discharge Order Discharge Orders: Discharge Order (Routine); Ordered 11/09/17 Ordered By: Shawna Chang - Discharge Details Anticipated Discharge Date: 11/09/17 - Physicians Team Primary Care Provider: UNKNOWN, Attending Provider: Shawna Chang Other Providers: Vida Will MD
[2017-11-09] MEDS ORDERED: levoFLOXacin 750 MG Tablet PO SCH (15:00)
== END 2017-11-09 17:28 | disposition home or self-care (01) ==
LOC: NEPE 20:57 → NEDA 22:47 → N07 11-03 00:50
PROVIDERS: ADMIT Family Medicine; ATTEND Family Medicine